=== PATIENT | male | born 1955 | race Caucasian/White ===

== ENCOUNTER → 2020-03-25 08:37 | Outpatient (BNVA) | payer MEDICAID, SELFPAY | PROVIDERS: Family Provider Internal Medicine; PCP Internal Medicine; Visit Provider Family Medicine | DX: N12 Tubulo-interstitial nephritis, not specified as acute or chronic (principal); N39.0 Urinary tract infection, site not specified; R39.9 Unspecified symptoms and signs involving the genitourinary system | CPT/HCPCS: 80053; 81003; 84145; 85025; 86140 ==

== ENCOUNTER 2020-10-02 12:14 | Emergency (ER) | payer OTHER, MEDICAID, SELFPAY ==
[2020-10-02 12:39] VITALS: BP 153/69; PULSE 86; RESP 24; TEMP 36.6; O2SAT 93; BMI 53.1
--- NOTE | 2020-10-02 12:52 | ECG_ITS ---
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 Measurements Intervals [place] Rate: 82 P: 59 MA: 185 QRS: 17 QRSD: 89 T: 62 QT: 377 QTc: 441 Interpretive Statements SINUS RHYTHM LOW QRS VOLTAGE IN PRECORDIAL LEADS [QRS DEFLECTION < 1.0 mV IN CHEST LEADS] Compared to ECG 10/25/2018 15:30:31 Low QRS voltage now present Sinus tachycardia no longer present Ventricular premature complex(es) no longer present Electronically Signed On 10-03-2020 9:31:03 CDT by Juan J Parisi M.D. [id number]
--- NOTE | 2020-10-02 12:52 | XR_ITS ---
WS: [id number] Portable AP upright chest, 10/02/2020 Clinical Data: dyspnea Comparison: PA chest, 12/07/2018. Findings: No nodules, masses or effusions are seen. The heart is normal. The pulmonary vascularity is not increased. No pneumothorax is seen. There is patchy opacity in the left lower lobe which could represent pneumonia and/or atelectasis. XR/XR chest 1V portable [id number] Impression: 1. Possible left lower lobe atelectasis and/or pneumonia. 2. Recommend repeat chest x-ray in one to 2 days.
[2020-10-02 13:25] LABS: SARS Covid-2 Antigen Negative (Negative)
[2020-10-02 13:36] VITALS: O2SAT 93
[2020-10-02 13:40] VITALS: PULSE 28; O2SAT 96
--- NOTE | 2020-10-02 14:12 | ED_ITS ---
HPI - COVID General: Chief Complaint: COVID symptoms Stated Complaint: DIFF BREATHING Time Seen by Provider: 10/02/20 12:48 Source: patient Mode of arrival: ambulatory Limitations: no limitations Triage information: No fever, cough or shortness of breath . No known COVID + exposure last 14 days History of Present Illness: HPI Narrative: 65-year-old male presents with shortness of breath progressive for the last few days. He does have an intermittent dry cough but not frequently. He does report symptoms for starting on Wednesday, 5 days ago. He really was not significant until Wednesday when he noticed that he actually had diminished taste and smell and had an episode of diarrhea. Patient reports that he had skipped his diuretic for a road trip and has noticed increased swelling and orthopnea. He does have chronic respiratory failure and COPD and uses inhalers and 24/7 oxygen with 2 L at all times. He recently got permission to increase to 3 L at night and with exertion. Patient reports he had 1 fever over the weekend that resolved with Tylenol and has not recurred. He does not report any asymmetric extremity swelling, redness, pain, or hemoptysis. He does have a history of cardiomegaly and morbid obesity with obesity hypoventilation syndrome COVID 19 common symptoms: positive fever(s), non-productive cough, dyspnea, fatigue and diarrhea (Resolved); negative chills, productive cough, body aches, headache(s), nausea or vomiting COVID 19 other sytmptoms: negative chest pain COVID Results: SARS-CoV-2 Antigen (Rapid) Negative (Negative) 10/02/20 12:58 10/02/20 Review of Systems General: Reports: 10 or more systems reviewed and unremarkable except in HPI and below and Other (No HEENT symptoms) Const: Reports: fever(s), fatigue and malaise; Denies: chills, body aches, change in appetite or diaphoresis Card: Reports: edema, swelling of feet/ankles, dyspnea on exertion and orthopnea; Denies: chest pain, palpitations or syncope Resp: Reports: dyspnea, non-productive cough and wheezing; Denies: productive cough, pain on inspiration, change in phlegm color or hemoptysis GI: Reports: diarrhea (Resolved); Denies: abdominal pain, nausea or vomiting : Denies: difficulty urinating or dysuria Musc: Reports: extremity swelling Skin/Breast: Denies: rash or changes in skin color Neuro: Denies: headache(s) or weakness in extremities Endo: Denies: polyuria or polydipsia PFSH ED PFSH: Medical History (Updated 10/02/20 @ 13:50 by Darrel La MD) COPD (chronic obstructive pulmonary disease) Coronary artery disease History of type 2 diabetes mellitus Hyperlipidemia Hypertension Surgical History (Updated 03/25/20 @ 17:21 by Moisés Landon MD) History of heart artery stent Physical Exam Const: COMMON NORMALS: no limitations and alert EXAM LIMITATIONS: no altered mental status GENERAL APPEARANCE: cooperative, well kempt and well developed NUTRITIONAL APPEARANCE: obese ORIENTATION/CONSCIOUSNESS: Yes awake; not confused HENMT: COMMON NORMALS: normocephalic, atraumatic, external ears normal and Normal external nose present HEAD & SCALP: normal to inspection, normocephalic and atraumatic FACE & SINUS: face symmetric NOSE: Normal external nose present EXTERNAL EAR: Yes external ears normal MOUTH: lip normal; no muffled voice Eye: COMMON NORMALS: EOMs intact bilaterally and conjunctivae normal GENERAL EYE: appearance normal, both eyes and all related structures CONJUNCTIVA: Yes conjunctivae normal Neck/C-Spine: COMMON NORMALS: no JVD GENERAL: Yes normal visual inspection and Yes trachea midline Resp: EFFORT & INSPECTION: Yes symmetric chest movement, Yes tachypneic, Yes respiratory distress (mild), Yes uses accessory muscles (mild), No tracheal deviation, No tripod positioning and No prolonged expiratory phase AUSCULTATION: abnormal I/E ratio and wheezes Cardio: COMMON NORMALS: no JVD, regular rate and regular rhythm RATE: regular rate RHYTHM: regular rhythm PERIPHERAL PULSES: radial pulses present GI: COMMON NORMALS: Soft to palpation INSPECTION: Yes normal to inspection PALPATION: Yes Soft to palpation, No Tenderness to palpation present (GI) and No Guarding due to palpation present (GI) Back/Pelvis: COMMON NORMALS: thoraco-lumbar ROM normal Extremity: COMMON NORMALS: full ROM GENERAL: Yes normal exam except as noted, No calf tenderness and Yes edema Neuro: COMMON NORMALS: moves all extremities, no focal motor deficits and no sensory deficits noted SENSORIUM/ORIENTATION: Yes alert Psych: COMMON NORMALS: mental status grossly normal, Normal thought process present, cooperative, normal affect and speech normal APPEARANCE: Yes well kempt SPEECH: Yes normal speech THOUGHT PROCESS: Normal thought process present Skin: COMMON NORMALS: no rashes or lesions noted, turgor normal and no jaundice GENERAL SKIN EXAM: no rashes or lesions noted and turgor normal Course Vital Signs: Vital signs: Vital Signs Temperature 97.8 F 10/02/20 12:39 Pulse Rate 28 L 10/02/20 13:40 Respiratory Rate 24 H 10/02/20 12:39 Blood Pressure 153/69 10/02/20 12:39 Pulse Oximetry 96 10/02/20 13:40 MDM - COVID MDM Narrative: Medical decision making narrative: Clinically the patient is presenting with fluid overload and congestive heart failure is the most obvious cause of his symptoms. However, the lost of taste and smell and the isolated fever are concerning for Covid. He was tested by the [facility] with a PCR send out test. Rapid test here was negative. Patient has home oxygen and is doing well with 2 L at rest and 3 with exertion. Patient has been skipping his diuretic and so I have instructed him to increase from 60 once a day to 60 twice daily for 3 days. I have added some potassium for replacement. We will put the patient empirically on doxycycline as his left lower lobe may have some atelectasis versus infiltrate. Patient also has wheezing and have encouraged him to use his inhalers and will add prednisone. Patient does not want to be admitted. We will do a trial of home therapy and have given return precautions. Lab Data: Labs: Lab Results 10/02/20 Range/Units 12:58 SARS-CoV-2 Ag (Rap id) Negative (Negative) EKG Data: EKG 1: Attestation: I personally reviewed and interpreted this EKG as follows: Interpretation: Sinus rhythm at a rate of 82 bpm, normal axis, normal intervals, no concerning ST segment elevations or depressions. No ectopy. COVID Results: SARS-CoV-2 Antigen (Rapid) Negative (Negative) 10/02/20 12:58 10/02/20 Discharge Plan Discharge Patient Disposition: Home Clinical Impression: Abnormal finding on chest xray Acute exacerbation of CHF (congestive heart failure) Qualifiers: Heart failure type: diastolic Qualified Code(s): I50.33 - Acute on chronic diastolic (congestive) heart failure COPD (chronic obstructive pulmonary disease) Qualifiers: COPD type: COPD with acute exacerbation Qualified Code(s): J44.1 - Chronic obstructive pulmonary disease with (acute) exacerbation Condition: Stable Prescriptions: New doxycycline monohydrate 100 mg capsule 100 mg PO BID 10 Days Qty: 20 RF: 0 prednisone 20 mg tablet 20 mg PO BID 5 Days Qty: 10 RF: 0 potassium chloride 20 mEq tablet extended release 20 meq PO DAILY 7 Days Qty: 7 RF: 0 Discontinued levofloxacin 750 mg tablet 750 mg PO DAILY 14 Days Qty: 14 RF: 0 No Action tamsulosin [Flomax] 0.4 mg capsule 0.4 mg PO DAILY 30 Days Qty: 30 RF: 0 Discharge Orders: Discharge ED (Routine); Ordered 10/02/20 Ordered By: Darrel La Referrals: Lovely Ivey MD [Primary Care Provider] - 4-7 days (Dyspnea related to CHF exacerbation with contributions from COPD, obesity hypoventilation, and r/o COVID.) Discharge Diet: Low Salt Discharge Activity: Increase activity as tolerated Patient Instructions: Heart Failure (ED), Pulmonary Edema (ED), Pneumonia (ED), Opioid Safety Activity Restrictions/Additional Instructions: 1. Take 60mg of lasix twice daily for three days then back to 60mg daily. 2. Take potassium 40meq daily for 7 days. 3. Restrict fluid intake to 60 oz daily for 5 days. 4. Take doxycycline antibiotic twice daily. 5. [facility] 6. Use CPAP and oxygen at night AND while resting (eg in your chair). Return to ER if you are getting worse. 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
== END 2020-10-02 14:50 | disposition home or self-care (01) ==
PROVIDERS: Emergency Provider Emergency Medicine; PCP Family Medicine
DX: J44.1 Chronic obstructive pulmonary disease with (acute) exacerbation (principal); I11.0 Hypertensive heart disease with heart failure; I50.33 Acute on chronic diastolic (congestive) heart failure; R93.89 Abnormal findings on diagnostic imaging of other specified body structures; I25.10 Atherosclerotic heart disease of native coronary artery without angina pectoris; E11.9 Type 2 diabetes mellitus without complications; E78.5 Hyperlipidemia, unspecified
CPT/HCPCS: 71045; 87426; 93005; 99283

== ENCOUNTER → 2021-02-12 10:34 | Outpatient (BNVA) | payer OTHER, SELFPAY | PROVIDERS: PCP Family Medicine; Visit Provider Internal Medicine Pulmonary Disease | DX: J44.1 Chronic obstructive pulmonary disease with (acute) exacerbation (principal) | CPT/HCPCS: 87635 ==

== ENCOUNTER 2021-02-19 13:51 | Outpatient (CLI) | payer OTHER, SELFPAY ==
--- NOTE | 2021-02-19 14:18 | PFTS_ITS ---
Date of Study:02/19/21 Date of Dictation: MECHANICS: Forced vital capacity (FVC) is reduced. Forced expiratory volume in one second (FEV1) is reduced. FEV1/FVC is reduced. FLOW VOLUME LOOP: Reduced flow at all lung volumes with significant scooping. LUNG VOLUMES: Total lung capacity (TLC) is normal. Residual volume (RV) is increased. DIFFUSING CAPACITY FOR CARBON MONOXIDE: Mild reduced. INTERPRETATION: The postbronchodilator spirometry is consistent with severe obstruction. There is no significant postbronchodilator response. Lung volumes are consistent with air trapping. Gas exchange (DLCO) is mildly reduced. MTDD
== END 2021-02-19 13:52 | disposition home or self-care (01) ==
LOC: RT 13:54
PROVIDERS: PCP Family Medicine; Visit Provider Internal Medicine Pulmonary Disease
DX: J44.1 Chronic obstructive pulmonary disease with (acute) exacerbation (principal); I10 Essential (primary) hypertension; I25.10 Atherosclerotic heart disease of native coronary artery without angina pectoris
CPT/HCPCS: 80048; 83880; 94060; 94726; 94729

== ENCOUNTER 2021-05-14 09:51 | Outpatient (CLI) | payer OTHER, SELFPAY ==
--- NOTE | 2021-05-14 10:02 | USCV_ITS ---
Artie Quiles Age: 66 Gender: M : 1955 Exam Date: 05/14/2021 10:10 Ordering Phys: Juan J Parisi M.D ([email or web address]) Technologist: DAVID Exam Location: [facility] [place] Indication: SHORTNESS OF BREATH BP: 118 / 60 HR: 77 Rhythm: Sinus Technical Quality: Technically difficult study MEASUREMENTS (Male / Female) Normal Values 2D ECHO LV Diastolic Diameter PLAX 5.1 cm 4.2 - 5.9 / 3.9 - 5.3 cm LV Systolic Diameter PLAX 4.0 cm IVS Diastolic Thickness 1.3 cm 0.6 - 1.0 / 0.6 - 0.9 cm IVS Systolic Thickness 1.5 cm LVPW Diastolic Thickness 1.3 cm 0.6 - 1.0 / 0.6 - 0.9 cm LVPW Systolic Thickness 1.3 cm RV Chamber Size 3.3 cm LVOT Diameter 2.0 cm LV Ejection Fraction 2D Teich 44.3 % LV Ejection Fraction MOD 2C 48.5 % LV Ejection Fraction 2C AL 51.7 % LA Diameter 3.9 cm LA Width 4.1 cm LA Height 5.5 cm RA Width 4.3 cm RA Height 5.2 cm Aorta at Sinotubular Diameter 2.6 cm M-MODE Aortic Annulus Diameter 3.3 cm LA Ao Ratio MM 1.3 DOPPLER AV Peak Velocity 146.0 cm/s LVOT Peak Velocity 94.0 cm/s AV Area Cont Eq vti 1.9 cm squared AV Area Cont Eq pk 2.1 cm squared MV Area PHT 3.6 cm squared Mitral E to A Ratio 1.0 MV E' Velocity 62.5 cm/s Mitral E to MV E' Ratio 14.4 Mitral E to LV E' Lateral Ratio 13.1 Mitral E to LV E' Septal Ratio 16.3 TR Peak Velocity 225.0 cm/s TR Peak Gradient 20.3 mmHg PV Peak Velocity 94.0 cm/s RV Acceleration Time 0.2 s RV Ejection Time 0.3 s RV AcT/ET 0.5 FINDINGS Left Ventricle Technically limited quality echocardiogram because of poor ultrasonic windows. Normal left ventricular size. LV systolic function is grossly normal. Regional wall motion normalities cannot be assessed because of poor ultrasonic windows. Right Ventricle The right ventricle is normal in size and function. Right Atrium Not well-visualized Left Atrium The left atrium is normal in size. Mitral Valve Grossly normal without significant stenosis or prolapse. There is mild mitral regurgitation. Aortic Valve Not well-visualized without stenosis. There is no aortic regurgitation. Tricuspid Valve Not well-visualized without significant stenosis or regurgitation. Insufficient TR jet to calculate RVSP Pulmonic Valve Not well-visualized Pericardium Normal pericardium without effusion. Aorta Normal ascending aorta dimension. CONCLUSIONS Technically limited quality echocardiogram because of poor ultrasonic windows. LV systolic function is grossly normal. Mild mitral regurgitation. No comparison studies are available Juan J Parisi MD (Electronically Signed) Final Date: 25 May 2021 16:50 S
== END 2021-05-14 09:52 | disposition home or self-care (01) ==
PROVIDERS: PCP Family Medicine; Visit Provider Internal Medicine
DX: R06.02 Shortness of breath (principal); I34.0 Nonrheumatic mitral (valve) insufficiency
CPT/HCPCS: 93306

== ENCOUNTER → 2021-10-14 15:21 | Outpatient (BNVA) | payer OTHER, SELFPAY | PROVIDERS: PCP Family Medicine; Visit Provider Internal Medicine | DX: I48.91 Unspecified atrial fibrillation (principal); I11.0 Hypertensive heart disease with heart failure; I50.9 Heart failure, unspecified; J44.1 Chronic obstructive pulmonary disease with (acute) exacerbation; F17.210 Nicotine dependence, cigarettes, uncomplicated; Z95.5 Presence of coronary angioplasty implant and graft; E78.5 Hyperlipidemia, unspecified; E11.8 Type 2 diabetes mellitus with unspecified complications; Z79.84 Long term (current) use of oral hypoglycemic drugs; I25.10 Atherosclerotic heart disease of native coronary artery without angina pectoris | CPT/HCPCS: 99214 ==

== ENCOUNTER 2021-10-23 11:03 | Outpatient (CLI) | payer OTHER, SELFPAY ==
--- NOTE | 2021-10-23 11:15 | CT_ITS ---
WS: [id number] LDCT LUNG CANCER SCREENING HISTORY: Z87.891 - Personal history of nicotine dependence TECHNIQUE: Axial imaging performed from the apices to 1 cm below the costophrenic angles. Coronal and sagittal reformats are submitted with axial MIP series. All CT scans at [facility] use at least one of these dose optimization techniques: automated exposure control; mA and/or kV adjustment per patient size (includes targeted exams where dose is matched to clinical indication); or iterativ e reconstruction. DLP: 79.48 mGy.cm DIvol: Mean CTDIvol: 1.60 (mGy) COMPARISON: 10/15/2020 Diagnostic quality: Quality is limited by motion artifact and body habitus. Lung Nodules: Atelectasis at the lung bases. Slightly greater atelectasis which is curvilinear at the RIGHT lung base. Small nodules would be difficult to visualize with this amount of motion and degrad ation of quality due to body habitus. Lungs: Hyperexpanded lungs. Heart: Normal size heart. No pericardial effusion. Other findings: Mildly enlarged lobulated substernal LEFT thyroid. Similar to the prior CT from 2020. RIGHT paratracheal lymph node measures 14 mm. No change. There are a few additional smaller lymph no tavo. Healing rib fractures with callus formation in the posterior inferior LEFT thorax. CT/CT lung screening [id number] IMPRESSION: LUNG-RADS: 2-Benign Appearance or Behavior FOLLOW UP: 12 Month: Continue annual screening with LDCT OTHER FINDINGS (S MODIFIER): None. Quality of examination is significantly degraded by body habitus and breathing motion artifact.
== END 2021-10-23 11:04 | disposition home or self-care (01) ==
LOC: RAD 11:05
PROVIDERS: PCP Family Medicine; Visit Provider Internal Medicine Pulmonary Disease
DX: Z12.2 Encounter for screening for malignant neoplasm of respiratory organs (principal); Z87.891 Personal history of nicotine dependence
CPT/HCPCS: 71271

== ENCOUNTER → 2022-04-28 13:25 | Outpatient (BNVA) | payer OTHER, SELFPAY | PROVIDERS: PCP Family Medicine; Visit Provider Internal Medicine | DX: I48.91 Unspecified atrial fibrillation (principal); Z79.01 Long term (current) use of anticoagulants; I11.0 Hypertensive heart disease with heart failure; I50.9 Heart failure, unspecified; J44.1 Chronic obstructive pulmonary disease with (acute) exacerbation; E78.5 Hyperlipidemia, unspecified; E11.9 Type 2 diabetes mellitus without complications; Z79.84 Long term (current) use of oral hypoglycemic drugs; I25.10 Atherosclerotic heart disease of native coronary artery without angina pectoris; Z95.5 Presence of coronary angioplasty implant and graft; Z87.891 Personal history of nicotine dependence | CPT/HCPCS: 99214 ==

== ENCOUNTER 2022-08-20 15:53 | Inpatient (IN) | payer OTHER, SELFPAY ==
[2022-08-20] VITALS (21 sets, daily range): BP systolic 88–144; BP diastolic 51–92; PULSE 73–119; RESP 18–33; TEMP 36.8–36.9; O2SAT 84–99; BMI 51.6; BMI 50.6
--- NOTE | 2022-08-20 16:01 | ED_ITS ---
HPI - Chest Pain General: Chief Complaint: Chest Pain Stated Complaint: CHEST PAIN Time Seen by Provider: 08/20/22 16:00 History of Present Illness: Mr. Quiles is a 67-year-old gentleman with complex past medical history including atrial fibrillation, CHF, COPD with chronic hypoxic respiratory failure, history of CAD with history of PCI, hypertension, hyperlipidemia, diabetes presenting to the emergency department due to chest pain. He reports onset of symptoms perhaps 1 hour ago at rest. He endorses substernal pain with some radiation to the epigastric region. He took some Gas- X and this did not help. He did take nitroglycerin which provided some relief. He reports he does not frequently have episodes of chest pain. Intensity symptoms is moderate. Course has mildly improved. No other specific changes in health, exacerbating, or alleviating factors identified. Onset (ago): hour(s) Timing of current episode: constant Prior episodes: No Onset: during rest Pain location: substernal Pain radiation: abdomen Severity: moderate Relieving factors: nitroglycerin Exacerbating factors: nothing Associated symptoms: Reports no associated symptoms Review of Systems General: Reports: 10 or more systems reviewed and unremarkable except in HPI and below PFSH ED PFSH: Medical History Atrial fibrillation CHF (congestive heart failure) COPD (chronic obstructive pulmonary disease) 2L Coronary artery disease History of type 2 diabetes mellitus Hyperlipidemia Hypertension Legally blind NATHALY (obstructive sleep apnea) Nightly CPAP Septic shock Surgical History History of heart artery stent Social History Smoking and tobacco status: former smoker Quit status (tobacco): has quit using tobacco Year quit tobacco: August 2020 [id number] Second hand smoke exposure: Yes Smoking risk assessment/counseling performed?: Yes Alcohol intake: never Caregiver/support person: Yes Lives independently: Yes Household members: significant other Marital status: service: Yes Current occupational status: retired and disabled Pets and animals: Yes Current gender identity: Male Physical Exam Const: COMMON NORMALS: alert GENERAL APPEARANCE: cooperative and well developed HENMT: COMMON NORMALS: normocephalic and atraumatic HEAD & SCALP: normocephalic and atraumatic Eye: COMMON NORMALS: conjunctivae normal CONJUNCTIVA: Yes conjunctivae normal SCLERA: sclerae normal Neck/C-Spine: COMMON NORMALS: supple GENERAL: Yes trachea midline Resp: COMMON NORMALS: clear to auscultation bilaterally EFFORT & INSPECTION: Yes able to speak in complete sentences AUSCULTATION: clear to auscultation bilaterally Cardio: COMMON NORMALS: regular rate and regular rhythm RATE: regular rate RHYTHM: regular rhythm GI: COMMON NORMALS: Soft to palpation PALPATION: Yes Soft to palpation and No Tenderness to palpation present (GI) Extremity: GENERAL: Yes normal exam except as noted and No edema Neuro: COMMON NORMALS: moves all extremities SENSORIUM/ORIENTATION: Yes alert and No Orientation impaired Psych: COMMON NORMALS: mental status grossly normal and Normal thought process present THOUGHT PROCESS: Normal thought process present Course Vital Signs: Vital signs: Vital Signs Temperature 98.2 F 08/28/22 15:44 Pulse Rate 70 08/28/22 15:44 Respiratory Rate 19 H 08/28/22 15:44 Blood Pressure 131/91 08/28/22 15:44 Pulse Oximetry 97 08/28/22 15:44 Oxygen Delivery Me thod 08/28/22 08:30 Oxygen Flow Rate 4 08/28/22 08:30 Fraction of Inspir ed Oxygen 40 08/28/22 02:20 MDM - Chest Pain Medical Decision Making 67-year-old gentleman with cardiac history presenting to the emergency room for chest pain. Exam as above, patient does not have reproducible symptoms with palpation on physical exam. He is nontoxic in appearance. EKG notable for atrial fibrillation with controlled ventricular response, nonspecific ST segment abnormalities, no STEMI. Labs are notable for mild leukocytosis, anemia is present. ABG with mild hypercapnia toxic respiratory failure. Metabolic panel with hyperkalemia and elevated creatinine above baseline. Initial lactic acid is elevated. Negative range 2-hour delta troponin. BNP only minimally elevated. Urinalysis pending. Chest x-ray demonstrates cardiomegaly with basilar opacities, no pneumothorax. Given severity of symptoms and overall clinical exam and laboratory abnormalities advanced imaging is appropriate. CT demonstrates bilateral dependent changes, mild cardiomegaly with trace pericardial effusion. There is perhaps mild enteritis. Incidental findings noted. During ED course patient treated with GI cocktail, morphine, fentanyl, calcium, IV fluids, antibiotics for community-acquired pneumonia. Most likely etiology patient symptoms is multifactorial with pneumonia, heart failure, sepsis. The results of ED evaluation were discussed with the patient including plan for admission due to requirement for level of care not available if discharged to prevent significant worsening/deterioration. Patient agreeable with plan. Discussed with hospitalist service who was agreeable to admit patient. Medical Records I reviewed the patient's medical records. Lab Data I reviewed the patient's lab results. 08/28/22 08:41 08/28/22 01:14 Radiology Impressions Chest/Abdomen/Pelvis CT 08/20/22 18:13 IMPRESSION: 1. Bilateral dependent atelectasis versus infiltrate. 2. Several chronic posterior left rib fractures. 3. Scattered enlarged mediastinal lymph nodes measuring up to 15 mm, similar to prior exam, nonspecific. 4. Cardiomegaly. 5. Trace pericardial effusion. 6. Coronary artery atherosclerotic calcifications. IMPRESSION: 1. Mildly prominent fluid in the small bowel without dilation may reflect an enteritis. 2. Several hepatic cysts. 3. Left kidney punctate nonobstructing renal calyceal stone. 4. Perinephric edema likely reflecting renal insufficiency, please correlate for possible pyelonephritis. 5. Umbilical hernia containing omentum without bowel. 6. Left kidney exophytic 14 mm probable cyst, appears somewhat hyperdense, further evaluation with nonemergent renal ultrasound advised to evaluate for suspected cystic versus potentially solid nature. Venous Duplex 08/21/22 14:54 IMPRESSION: No evidence of deep vein thrombosis. Chest X-Ray 08/27/22 15:28 IMPRESSION: Interval placement of right central line, no pneumothorax or other acute abnormality. Laboratory Results WBC 19.3 10^3/uL (4.0-10.0) H 08/20/22 16:33 RBC 4.34 10^6/uL (4.1-5.3) 08/20/22 16:33 Hgb 10.2 g/dL (11.7-16.6) L 08/20/22 16:33 Hct 35.4 % (42.0-52.0) L 08/20/22 16:33 MCV 81.6 fl (80-94) 08/20/22 16:33 MCH 23.5 pg (28.0-34.0) L 08/20/22 16:33 MCHC 28.8 g/dL (30.0-36.0) L 08/20/22 16:33 RDW 17.7 % (12.1-15.1) H 08/20/22 16:33 Plt Count 497 10^3/cmm (130-400) H 08/20/22 16:33 MPV 11.2 fL (7.4-10.4) H 08/20/22 16:33 Neut % (Auto) 78.6 % 08/20/22 16:33 Lymph % (Auto) 11.3 % 08/20/22 16:33 [place] % (Auto) 9.2 % 08/20/22 16:33 Eos % (Auto) 0.3 % 08/20/22 16:33 Baso % (Auto) 0.2 % 08/20/22 16:33 Neut # (Auto) 15.17 10^3/uL (1.8-7.7) H 08/20/22 16:33 Lymph # (Auto) 2.2 10^3/uL (0.8-4.8) 08/20/22 16:33 [place] # (Auto) 1.8 10^3/uL (0.2-0.9) H 08/20/22 16:33 Eos # (Auto) 0.1 10^3/uL (0.0-0.8) 08/20/22 16:33 Baso # (Auto) 0.0 10^3/uL (0.0-0.1) 08/20/22 16:33 Nucleated RBC % (auto) 0 % 08/20/22 16:33 Nucleated RBCs # 0.0 /100WBC 08/20/22 16:33 Sodium 139 mmol/L (136-145) 08/20/22 16:33 Potassium 6.0 mmol/L (3.5-5.1) H 08/20/22 16:33 Chloride 93 mmol/L (98-107) L 08/20/22 16:33 Carbon Dioxide 29 mmol/L (22-29) 08/20/22 16:33 Anion Gap 23.0 (5-19) H 08/20/22 16:33 BUN 64 mg/dL (8-23) H 08/20/22 16:33 Creatinine 2.3 mg/dL (0.7-1.2) H 08/20/22 16:33 GFR Calculation 28.4 mL/min (90-130) L 08/20/22 16:33 Glucose 120 mg/dL (65-115) H 08/20/22 16:33 Calculated Osmolality 308 mOsm/kg (285-295) H 08/20/22 16:33 Lactate 2.9 mmol/L (0.5-2.2) H 08/20/22 18:25 Calcium 8.1 mg/dL (8.5-10.5) L 08/20/22 16:33 Total Bilirubin 0.2 mg/dL (0.15-1.2) 08/20/22 16:33 AST 19 U/L (0-40) 08/20/22 16:33 ALT 12 U/L (0-41) 08/20/22 16:33 Alkaline Phosphatase 142 U/L (40-130) H 08/20/22 16:33 Troponin T Baseline 92 ng/L (0-15) H 08/20/22 16:33 Troponin T 120 Minute 84.64 ng/L (0-15) H 08/20/22 18:25 Delta Troponin T -7.36 ABS# (0-10) L 08/20/22 18:25 NT-Pro-B Natriuret Pep 343 pg/mL (0-125) H 08/20/22 16:33 Total Protein 7.2 g/dL (6.6-8.7) 08/20/22 16:33 Albumin 3.8 g/dL (3.5-5.2) 08/20/22 16:33 Globulin 3.4 g/dL (1.3-4.6) 08/20/22 16:33 Lipase 25 U/L (13-60) 08/20/22 16:33 Critical Care Time Critical Care Time: Critical Care Time: Yes Total Critical Care Time: 35 Attestation: Due to a high probability of clinically significant, possibly life threatening deterioration, the patient required my highest level of attention and preparedness to intervene emergently and I personally spent this critical care t lee directly and personally managing the patient. This critical care time included obtaining a history; examining the patient; pulse oximetry; ordering and review of laboratory and imaging studies; arranging urgent treatment with development of a management plan; evaluation of patient's response to treatment; frequent reassessment; and, discussions with other providers as applicable. It was exclusive of separately billable procedures. Primary system involved is infectious disease and cardiopulmonary Discharge Plan Discharge Patient Disposition: Admitted As Inpatient Admit Provider: Conor Madera Clinical Impression: Chest pain, CHF (congestive heart failure), Atrial fibrillation, Pneumonia, EDWIN (acute kidney injury), Sepsis, Hyperkalemia Condition: Stable Discharge Diet: Cardiac Discharge Activity: Increase activity as tolerated Coding Level of Care Code ED Superintendent Nonselling for Lauren Gonzalez
--- NOTE | 2022-08-20 16:13 | ECG_ITS ---
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 Measurements Intervals [place] Rate: 82 P: 0 PA: 0 QRS: -14 QRSD: 82 T: 78 QT: 362 QTc: 425 Interpretive Statements ATRIAL FLUTTER/TACHYCARDIA LOW QRS VOLTAGE [QRS DEFLECTION < 0.5/1.0 mV IN LIMB/CHEST LEADS] Compared to ECG 10/02/2020 13:32:59 Sinus rhythm no longer present Electronically Signed On 08-20-2022 22:50:28 CDT by Gadiel Kinsey M.D. [email or web address] [id number]
--- NOTE | 2022-08-20 16:13 | XRR_ITS ---
PROCEDURE INFORMATION: Exam: XR Chest Exam date and time: 08/20/2022 5:07 PM Age: 67 years old Clinical indication: Shortness of breath and other: Copd. Stomach pains, jello legs; Additional info: Cp TECHNIQUE: Imaging protocol: Radiologic exam of the chest. Views: 1 view. COMPARISON: CT chest con [id number] 06/05/2022 5:10 PM FINDINGS: Limitations: Assessment is limited due to body habitus. Lungs: Lung volumes are decreased. There is patchy ground-glass opacities the lung bases with indistinct nodular consolidative opacities at the left lung base concerning for pneumonia. Pleural spaces: Unremarkable. No pleural effusion. No pneumothorax. Heart/Mediastinum: Heart is enlarged, unchanged. Bones/joints: Unremarkable for age. XR/XR chest 1V portable [id number] IMPRESSION: Cardiomegaly with bibasilar opacities more pronounced at the left lung base concerning for pneumonia.
[2022-08-20] MEDS: morphine 4 mg/mL SDV 1 mL IVP (16:30)
[2022-08-20 16:56] LABS: Basophils % 0.2 %; Eosinophils # 0.1 10^3/uL (0.0-0.8); Eosinophils % 0.3 %; Hematocrit 35.4 % (42.0-52.0); Hemoglobin 10.2 g/dL (11.7-16.6); Lymphocytes # 2.2 10^3/uL (0.8-4.8); Lymphocytes % 11.3 %; Mean Corpuscular HGB Conc 28.8 g/dL (30.0-36.0); Mean Corpuscular Hemoglobin 23.5 pg (28.0-34.0); Mean Corpuscular Volume 81.6 fl (80-94); Mean Platelet Volume 11.2 fL (7.4-10.4); Monocytes # 1.8 10^3/uL (0.2-0.9); Monocytes % 9.2 %; Neutrophils # 15.17 10^3/uL (1.8-7.7); Neutrophils % 78.6 %; Nucleated Red Blood Cells % 0 %; Platelet Count 497 10^3/cmm (130-400); Red Blood Count 4.34 10^6/uL (4.1-5.3); Red Cell Distribution Width 17.7 % (12.1-15.1); White Blood Count 19.3 10^3/uL (4.0-10.0)
[2022-08-20 17:15] LABS: Albumin Level 3.8 g/dL (3.5-5.2); Chloride 93 mmol/L (98-107); Sodium 139 mmol/L (136-145)
[2022-08-20 17:19] LABS: Troponin(5th) Baseline 92 ng/L (0-15)
[2022-08-20 18:09] LABS: Alanine Aminotransferase 12 U/L (0-41); Aspartate Amino Transferase 19 U/L (0-40); Blood Urea Nitrogen 64 mg/dL (8-23); Calcium 8.1 mg/dL (8.5-10.5); Carbon Dioxide 29 mmol/L (22-29); Globulin 3.4 g/dL (1.3-4.6); Glomerular Filtration Rate 28.4 mL/min (90-130); Glucose 120 mg/dL (65-115); Lipase 25 U/L (13-60); NT Pro B Type Natriuretic Pept 343 pg/mL (0-125); Osmolality Calculated 308 mOsm/kg (285-295); Total Bilirubin 0.2 mg/dL (0.15-1.2); Total Protein 7.2 g/dL (6.6-8.7)
--- NOTE | 2022-08-20 18:12 | ECG_ITS ---
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 Measurements Intervals [place] Rate: 83 P: 0 CA: 0 QRS: 0 QRSD: 93 T: 55 QT: 368 QTc: 434 Interpretive Statements ATRIAL FIBRILLATION LOW QRS VOLTAGE [QRS DEFLECTION < 0.5/1.0 mV IN LIMB/CHEST LEADS] Compared to ECG 08/20/2022 16:03:40 Atrial flutter no longer present Electronically Signed On 08-21-2022 23:09:36 CDT by Gadiel Kinsey M.D. [id number]
--- NOTE | 2022-08-20 18:13 | CTR_ITS ---
PROCEDURE INFORMATION: Exam: CT Chest Without Contrast; Diagnostic Exam date and time: 08/20/2022 6:50 PM Age: 67 years old Clinical indication: Other: Brandyn; Shortness of breath; Additional info: SOB, cp, brandyn TECHNIQUE: Imaging protocol: Diagnostic computed tomography of the chest without contrast. Radiation optimization: All CT scans at this facility use at least one of these dose optimization techniques: automated exposure control; mA and/or kV adjustment per patient size (includes targeted exams where dose is matched to clinical indication); or iterative reconstruction. REPORTING DATA: Count of CT and Cardiac NM exams in prior 12 months: This patient has received 2 known CTs and 0 known cardiac nuclear medicine studies in the 12 months prior to the current study. COMPARISON: CT chest wo con [id number] 06/05/2022 5:10 PM RADIATION DOSE METRICS: Total DLP (mGy-cm): 0 FINDINGS: Lungs: Bilateral dependent atelectasis versus infiltrate. Pleural spaces: Unremarkable. No pneumothorax. No pleural effusion. Heart: Cardiomegaly. Trace pericardial effusion. Coronary arteries: Coronary artery atherosclerotic calcifications. Lymph nodes: Scattered enlarged mediastinal lymph nodes measuring up to 15 mm, similar to prior exam, nonspecific. Vasculature: Unremarkable. No aortic aneurysm. Bones/joints: Several chronic posterior left rib fractures. Soft tissues: Unremarkable. PROCEDURE INFORMATION: Exam: CT Abdomen And Pelvis Without Contrast Exam date and time: 08/20/2022 6:50 PM Age: 67 years old Clinical indication: Other: Brandyn; Shortness of breath; Additional info: SOB, cp, brandyn TECHNIQUE: Imaging protocol: Computed tomography of the abdomen and pelvis without contrast. Radiation optimization: All CT scans at this facility use at least one of these dose optimization techniques: automated exposure control; mA and/or kV adjustment per patient size (includes targeted exams where dose is matched to clinical indication); or iterative reconstruction. REPORTING DATA: Count of CT and Cardiac NM exams in prior 12 months: This patient has received 2 known CTs and 0 known cardiac nuclear medicine studies in the 12 months prior to the current study. COMPARISON: CT kidney stone [id number] 12/07/2018 3:00 PM RADIATION DOSE METRICS: Total DLP (mGy-cm): 1507.88 FINDINGS: Liver: Several hepatic cysts. Gallbladder and bile ducts: Normal. No calcified stones. No ductal dilation. Pancreas: Normal. No ductal dilation. Spleen: Normal. No splenomegaly. Adrenal glands: Normal. No mass. Kidneys and ureters: Left kidney punctate nonobstructing renal calyceal stone. Perinephric edema likely reflecting renal insufficiency, please correlate for possible pyelonephritis. Left kidney exophytic 14 mm probable cyst, appears somewhat hyperdense, further evaluation with nonemergent renal ultrasound advised to evaluate for suspected cystic versus potentially solid nature. Stomach and bowel: Mildly prominent fluid in the small bowel without dilation may reflect an enteritis. Appendix: No evidence of appendicitis. Intraperitoneal space: Unremarkable. No free air. No significant fluid collection. Vasculature: Unremarkable. No abdominal aortic aneurysm. Lymph nodes: Unremarkable. No enlarged lymph nodes. Urinary bladder: Unremarkable as visualized. Reproductive: Unremarkable as visualized. Bones/joints: Unremarkable. No acute fracture. Soft tissues: Umbilical hernia containing omentum without bowel. CT/[place] [id number] IMPRESSION: 1. Bilateral dependent atelectasis versus infiltrate. 2. Several chronic posterior left rib fractures. 3. Scattered enlarged mediastinal lymph nodes measuring up to 15 mm, similar to prior exam, nonspecific. 4. Cardiomegaly. 5. Trace pericardial effusion. 6. Coronary artery atherosclerotic calcifications. IMPRESSION: 1. Mildly prominent fluid in the small bowel without dilation may reflect an enteritis. 2. Several hepatic cysts. 3. Left kidney punctate nonobstructing renal calyceal stone. 4. Perinephric edema likely reflecting renal insufficiency, please correlate for possible pyelonephritis. 5. Umbilical hernia containing omentum without bowel. 6. Left kidney exophytic 14 mm probable cyst, appears somewhat hyperdense, further evaluation with nonemergent renal ultrasound advised to evaluate for suspected cystic versus potentially solid nature.
[2022-08-20] MEDS: sodium chloride 0.9% 500 ML 999 ML IV ×2 (18:15→21:18)
[2022-08-20] MEDS: cefTRIAXone 1,000 MG in sodium chloride 0.9% (plus) 50 ML 100 MG IV (18:22)
[2022-08-20] MEDS: doxycycline 100 MG in sodium chloride 0.9% (plus) 100 ML IV (18:22)
[2022-08-20 18:29] LABS: Alkaline Phosphatase 142 U/L (40-130)
--- NOTE | 2022-08-20 18:43 | PC.NURSE ---
PT REPOSITIONED BY NURSE AND PILLOWS PLACED UNDER BOTTOM.
--- NOTE | 2022-08-20 18:44 | PC.NURSE ---
PATIENT STATES HIS BOTTOM IS HURTING - HE IS MOVED TO A WHEELCHAIR SO THAT HE IS MORE COMFORTABLE AND CAN STILL BE MONITORED. REMAINS AT BEDSIDE.
[2022-08-20 19:10] LABS: Lactate (Lactic Acid level) 2.9 mmol/L (0.5-2.2)
[2022-08-20 19:11] LABS: Troponin 5 2HR 84.64 ng/L (0-15)
[2022-08-20 19:15] LABS: Troponin 5 2HR Delta -7.36 ABS# (0-10)
[2022-08-20 20:00] LABS: ABG PCO2 54.3 mmHg (35-45); ABG PH Result 7.33 (7.35-7.45); Alveolar-Arterial Oxygen Gradi 8.5 mmHg (5-10); Arterial Blood Gas Hematocrit 31.6 % (42-52); Base Excess ABG 2.1 mmol/L (-2.0-2.0); Blood Gas Sample Site Brachial, right; Blood Gas Sample Type Arterial; Carboxyhemoglobin 2.5 %THgb (0.4-20.1); HCO3 ABG 28.8 mmol/L (22-26); HGB O2 Sat 89.4 % (95-100); Ionized Calcium Level - ABG 1.1 mmol/L (1.1-1.4); Methemoglobin 0.7 % (0.4-1.5); Oxygen Device NC; Oxygen Saturation ABG 92.3; PO2 ABG 66.9 mmHg (80.0-100.0); Potassium Level - ABG 6.1 mmol/L (3.5-5.0); Total Hemoglobin 10.3 g/dL (14-18)
--- NOTE | 2022-08-20 20:22 | P.HP_ITS ---
Providers/Chief Complaint Admitting Physician: Conor Madera Primary Care Provider: Lovely Ivey MD Chief Complaint: CHEST PAIN History of Present Illness Pleasant 67-year-old gentleman, legally blind, with history of COPD, CHF, normally on 2 L of oxygen, NATHALY, nightly on CPAP, history of CAD, takes a daily aspirin, atrial fibrillation on anticoagulation, morbid obesity, HTN, HLD presented due to chest pain central, with improvement with nitroglycerin, but then pain began radiating to his neck and shoulders. Received aspirin. He additionally has been having discomfort in his epigastrium. In ER he is noted tachypneic up to 24, saturation fluctuating, but dipped down to 89% on 2 L that he is usually on. Heart rates in the 70s-80s. Blood pressure soft 95/52. As low as 88/51. While in ER went into A-fib with RVR low 100s. Lactic acid 2.9. Noted leukocytosis 19.3, noted hemoglobin 10.2. Normocytic. ABG 7.33/44.3/66.9. Baseline troponin 92, 2-hour troponin 84.64. NT proBNP 343. Lipase 25. Sodium 139, potassium 6, chloride 93, anion gap 23, bicarb 29. BUN 64. Creatinine 2.3. Glucose 120. Chest x-ray with cardiomegaly with bibasilar opacities more pronounced at left lung base concerning for pneumonia. CT chest abdomen pelvis without contrast shows bilateral dependent atelectasis versus infiltrate. Several chronic posterior left rib fractures. Scattered enlarged mediastinal lymph nodes measuring up to 15 mm similar to prior exam, nonspecific. Cardiomegaly. Trace pericardial effusion. Coronary artery atherosclerotic calcifications. Mildly prominent fluid and small bowel without dilation may reflect enteritis. Several hepatic cyst. Left kidney punctate nonobstructing renal calyceal stone. Perinephric edema likely reflecting renal insufficiency, correlate for pyelonephritis. Umbilical hernia containing omentum without bowel. Left kidney exophytic 14 mm probable cyst, appears somewhat hyperdense. Further evaluation with nonemergent ultrasound advised. Patient additionally tells me that he is supposed to be having an appointment for endoscopic evaluation by referral from his primary provider. He tells me that he has been taking ibuprofen at home. As he is blind, his usually arranges and gives him his medications. Review of Systems Const: Denies: fever(s) ENMT: Denies: throat pain or ear or mastoid pain Card: Reports: chest pain; Denies: edema, pre-syncope or dyspnea on exertion Resp: Reports: productive cough; Denies: change in phlegm color or hemoptysis GI: Reports: abdominal pain (Epigastric); Denies: nausea or vomiting : Denies: flank pain, difficulty urinating, urinary frequency or hematuria Musc: Reports: back pain; Denies: joint swelling or joint redness Skin/Breast: Denies: rash or new lesions Neuro: Denies: headache(s), numbness in extremities, weakness in extremities, dizziness, confusion or seizure-like activity Medications/Allergies Home Medications Medication Instructions Recorded Confirmed Last Taken Type apixaban 5 mg tablet 5 mg PO BID 11/27/20 06/17/22 Unknown History aspirin 81 mg tablet,delayed 81 mg PO DAILY 11/27/20 06/17/22 Unknown History release (Adult Low Dose Aspirin) atorvastatin 80 mg tablet 40 mg PO DAILY 11/27/20 06/17/22 Unknown History cetirizine 10 mg tablet (Zyrtec) 10 mg PO DAILY PRN 11/27/20 06/17/22 Unknown History cholecalciferol (vitamin D3) 50 50 mcg PO DAILY 11/27/20 06/17/22 Unknown History mcg (2,000 unit) capsule docusate sodium 100 mg capsule 100 mg PO BID 11/27/20 06/17/22 Unknown History furosemide 20 mg tablet 80 mg PO BID 11/27/20 06/17/22 Unknown History hydrocodone 10 mg-acetaminophen 1 tab PO Q6H PRN 11/27/20 06/17/22 Unknown History 325 mg tablet lisinopril 20 mg tablet 10 mg PO DAILY 11/27/20 06/17/22 Unknown History metformin 1,000 mg tablet 1,000 mg PO BID 11/27/20 06/17/22 Unknown History nitroglycerin 0.4 mg sublingual 0.4 mg sublingual Q5M PRN 11/27/20 06/17/22 Unknown History tablet omeprazole 20 mg capsule,delayed 20 mg PO DAILY 11/27/20 06/17/22 Unknown History release polyethylene glycol 3350 17 17 g PO DAILY 11/27/20 06/17/22 Unknown History gram/dose oral powder pregabalin 150 mg capsule 150 mg PO BID 11/27/20 06/17/22 Unknown History inhalational spacing device (Allan #1 ea 05/20/21 06/17/22 Unknown Rx Aerosol [place] Enhancer spacer) multivitamin 1 tab PO DAILY 08/11/21 06/17/22 Unknown History roflumilast 250 mcg tablet 250 mcg PO DAILY #30 tabs 01/14/22 06/17/22 Unknown Rx miscellaneous medical supply See Rx Instructions miscellaneous 01/15/22 06/17/22 Unknown Rx .COMPLEX #1 ea metoprolol tartrate 50 mg tablet 50 mg PO BID #240 tabs 04/28/22 06/17/22 Unknown Rx guaifenesin 600 mg tablet, 600 mg PO Q12H PRN congestion #60 05/26/22 06/17/22 Unknown Rx extended release 12 hr (Mucinex) tabs albuterol sulfate 90 mcg/actuation 1 inh inhalation QID PRN shortness 06/17/22 06/17/22 Unknown Rx aerosol inhaler (Ventolin HFA) of breath or wheezing #8.5 grams budesonide-formoterol HFA 160 2 puff inhalation BID #10.2 grams 06/17/22 06/17/22 Unknown Rx mcg-4.5 mcg/actuation aerosol inhaler (Symbicort) ipratropium 0.5 mg-albuterol 3 mg 3 ml inhalation Q4H PRN wheezing 06/17/22 06/17/22 Unknown Rx (2.5 mg base)/3 mL nebulization #90 mL soln ipratropium bromide 0.02 % 2.5 ml inhalation Q6H PRN 06/17/22 06/17/22 Unknown History solution for inhalation tiotropium bromide 18 mcg capsule 1 cap inhalation DAILY #30 06/17/22 06/17/22 Unknown Rx with inhalation device (Spiriva inhalations with HandiHaler) nebulizer accessories #1 ea 06/18/22 Unknown Rx sodium chloride 3 % for 4 ml inhalation BID PRN congestion 06/18/22 Unknown Rx nebulization #240 mL Allergies Allergy/AdvReac Type Severity Reaction Status Date / Time Iodinated Contrast Media Allergy Severe anaphylaxis Verified 06/17/22 12:00 PFSH Acute PFSH: Medical History (Updated 08/20/22 @ 20:41 by Conor Madera MD) Atrial fibrillation CHF (congestive heart failure) COPD (chronic obstructive pulmonary disease) 2L Coronary artery disease History of type 2 diabetes mellitus Hyperlipidemia Hypertension Legally blind NATHALY (obstructive sleep apnea) Nightly CPAP Surgical History History of heart artery stent Social History Smoking and tobacco status: former smoker Quit status (tobacco): has quit using tobacco Year quit tobacco: August 2020 [id number] Second hand smoke exposure: Yes Smoking risk assessment/counseling performed?: Yes Alcohol intake: never Caregiver/support person: Yes Lives independently: Yes Household members: significant other Marital status: service: Yes Current occupational status: retired and disabled Pets and animals: Yes Current gender identity: Male Vitals/I&O/Wt Last Vital Signs Pulse 87 08/20/22 18:30 Resp 24 H 08/20/22 18:30 BP 104/61 08/20/22 18:30 Pulse Ox 96 08/20/22 18:30 O2 Del Method 08/20/22 16:59 O2 Flow Rate 2 08/20/22 16:59 08/20/22 08/20/22 08/20/22 06:59 14:59 22:59 Intake Total 100 / 100 Balance 100 / 100 Weight last 48 hrs Weight 163.293 kg Physical Exam Narrative: stepped out Const: COMMON NORMALS: patient oriented x3 and alert GENERAL APPEARANCE: cooperative NUTRITIONAL APPEARANCE: obese morbidly obese ORIENTATION/CONSCIOUSNESS: Yes awake HENMT: COMMON NORMALS: oropharynx normal Resp: AUSCULTATION: wheezes Cardio: COMMON NORMALS: no JVD, regular rhythm, S1 normal heart sound present, S2 normal heart sound present and No murmurs present (Cardio) RATE: tachycardic RHYTHM: abnormal rhythm irregularly irregular HEART SOUNDS: S1 normal heart sound present and S2 normal heart sound present GI: COMMON NORMALS: Normal to inspection, nondistended, normoactive bowel sounds present, Soft to palpation and non-tender PALPATION: Yes Soft to palpation Extremity: COMMON NORMALS: no joint enlargement and no pedal edema Neuro: COMMON NORMALS: patient oriented x3 and moves all extremities SENSORIUM/ORIENTATION: Yes alert Skin: COMMON NORMALS: no rashes or lesions noted GENERAL SKIN EXAM: no rashes or lesions noted Sepsis: Is patient septic: Yes Data 08/20/22 16:33 08/20/22 16:33 Micro: Microbiology 08/20/22 18:25 Blood Culture - Preliminary Blood SPECIMEN COLLECTED 08/20/22 18:42 Blood Culture - Preliminary Blood SPECIMEN COLLECTED A&P Assessment and plan (1) Chest pain: Episode of chest pain on presentation that brought him to the hospital with response to nitroglycerin, but then radiating to his neck and shoulders. Currently this is resolved. In ER with a number of additional finding as below. Also went into A-fib with RVR and low 100s. Has history of atrial fibrillation. Troponin with moderate elevation. EKG on my interpretation with atrial fibrillation. Complete troponin EKG series. Monitor on telemetry. His stents were probably about 20 years ago, it does not appear that he has had any stress test at least recently. Unfortunately echocardiogram last time unsuccessful. Discussed with him consideration of ultrasound with contrast study. He is very afraid of contrast given iodinated contrast allergy that he states nearly resulted in his . Attempted to reach ultrasound to confirm that our US contrast does not have iodine in it, however, could not get a hold of anybody tonight. Please confirm with ultrasound department in the morning, consider assessment by echo contrast study. Consider further assessment, risk stratification, possibly a stress test, depending on findings and his condition. (2) Sepsis: Sepsis, with leukocytosis 19, tachypnea 24, source pulmonary with suspected pneumonia, with pulmonary infiltrates additionally cannot exclude possible cha lonephritis. Urine studies pending. Perinephric edema on CT. Alternatively could be secondary to renal insufficiency. With endorgan injury, with acute kidney injury creatinine 2.3, lactic acidosis 2.9. Blood cultures collected. Empirically received ceftriaxone and doxycycline. For now we will continue with Zosyn, doxycycline. Appears to have response to fluid challenge in ER. Hold off additional boluses for now given history of CHF. Hold Lasix for now. In case hypotensive may need pressors. Blood pressure is low in ER. Concern for impending septic shock. Initial admission to ICU requested from ER. (3) EDWIN (acute kidney injury): Suspect in relation to sepsis, possibly secondary to pneumonia, cannot exclude pyelonephritis. No obstruction noted on CT. Hold lisinopril. Also states he takes ibuprofen at home, hold and discontinue. Hold Lasix for now. UA pending, add urine urea, creatinine. Received fluid challenge in ER. Follow-up renal function requested. (4) Hyperkalemia: Hold lisinopril. Lobe diet. Follow-up potassium level. (5) Pneumonia: Zosyn, doxycycline as above. Sputum cultures if able to provide. MRSA PCR. Urine bacterial antigens. (6) Abnormal CT scan, kidney: Perinephric edema, possibly secondary to his renal insufficiency, however, cannot exclude pyelonephritis given his overall picture, possible sepsis. UA ordered, pending sample. (7) Acute anemia: On anticoagulation, also takes daily aspirin. Acute normocytic anemia, h emoglobin 10.2, previously 13.3 but that was back in 2019. Also states takes ibuprofen. With epigastric pain on presentation. He is blind so I do not think he can tell us about dark or bloody stools. IV 40 mg PPI twice daily. Follow-up hemoglobin requested. Consideration of possibility of upper GI bleeding. Hemoccult stool. Hold Eliquis for now. Reports was being referred for colonoscopy. May need upper endoscopy. (8) Kidney lesion: Please refer for follow-up. Left kidney exophytic 14 mm probable cyst, appears somewhat hyperdense, further evaluation with nonemergent renal ultrasound advised to evaluate for suspected cystic versus potentially solid nature. (9) Rib fractures: Chronic fractures. Lidocaine patch. Incentive spirometry. Consider postdischarge assessment for osteoporosis. Plan Trace pericardial effusion Scattered enlarged mediastinal lymph nodes measuring up to 15 mm,similar to prior exam, nonspecific. A-fib with RVR: Blood pressure soft and with EDWIN, decrease metoprolol to 12.5 mg twice daily for now. Monitor heart rate, blood pressures. Follow-up renal function requested check TSH, magnesium. Legally blind, COPD, normally on 2 L of oxygen. Does not appear currently in exacerbation. DuoNebs requested. CHF, noted cardiomegaly. Does not appear currently in exacerbation. NATHALY, nightly CPAP requested history of CAD, takes a daily aspirin, atrial fibrillation on anticoagulation, hold Eliquis for now with acute anemia. morbid obesity, HTN, HLD Requested medications to be confirmed, please reconcile once available. Discussed with ER physician, ER documentation reviewed. Attestations Medical Necessity Statement*: Admission of over 2 nights anticipated for assessment and management of sepsis, pneumonia, possible plantar fasciitis, acute anemia in a gentleman with underlying CAD, presenting with chest pain, with finding of EDWIN, electrolyte normality with hyperkalemia, among additional problems noted as above. Critical Care Time: 20 mins Diagnoses Chest pain R07.9 Sepsis A41.9 EDWIN (acute kidney injury) N17.9 Hyperkalemia E87.[address] scan, kidney R93.429 Acute anemia D64.9 Kidney lesion N28.9 Rib fractures S22.49XA
[2022-08-20] MEDS: pantoprazole 40 mg SDV IVP (21:21)
[2022-08-20 21:40] LABS: Add Urine Microscopic? YES; Bilirubin Urine Neg (Negative); Blood Urine Neg (Negative); Glucose Urine UA Norm (Normal); Ketones Urine 1+ (Negative); Leukocyte Esterase Urine Trace (Negative); Nitrate Urine Negative (Negative); Protein Urine Trace (Negative); Specific Gravity, Urine 1.025 (1.005-1.030); Urine Appearance Clear (CLEAR); Urine Color Yellow (Yellow); Urobilinogen Urine 1 mg/dL (Negative); pH Urine 5 (5-7)
[2022-08-20 21:46] LABS: Bacteria Urine 1+ /hpf; RBC Urine 0-4 /hpf (0-2); Squamous Epithelial Cell Urine 0-4 /hpf (0-5)
[2022-08-20 21:50] LABS: Calcium Oxalate Crystals Urine 0-4 /hpf
--- NOTE | 2022-08-20 22:13 | ECG_ITS ---
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 Measurements Intervals [place] Rate: 90 P: 0 WA: 0 QRS: -61 QRSD: 109 T: 90 QT: 359 QTc: 440 Interpretive Statements ATRIAL FIBRILLATION PATTERN CONSISTENT WITH PULMONARY DISEASE LEFT ANTERIOR FASCICULAR BLOCK [QRS AXIS <= -45, QR IN I, RS IN II] MINIMAL ST DEPRESSION [0.025+ mV ST DEPRESSION] Compared to ECG 08/20/2022 18:12:56 Left anterior fascicular block now present ST (T wave) deviation now present Electronically Signed On 08-21-2022 23:10:15 CDT by Gadiel Kinsey M.D. [id number]
[2022-08-20 22:54] LABS: Hemoglobin 9.8 g/dL (11.7-16.6)
[2022-08-20 23:14] LABS: Troponin 5 6HR 75.47 ng/L (0-15)
[2022-08-20 23:18] LABS: Troponin 5 6HR Delta -16.53 ng/L (0-12)
[2022-08-20] MEDS: heparin 5,000 unit/mL INJ 1 mL 5000 UNIT SUBCUT (23:20)
[2022-08-20] MEDS: ondansetron 2 mg/ML SDV 2 mL 4 MG IVP (23:21)
[2022-08-20] MEDS: piperacillin-tazobactam 3.375 GM in sodium chloride 0.9% (plus) 50 ML IV (23:21)
[2022-08-21] VITALS (50 sets, daily range): BP systolic 86–156; BP diastolic 43–88; PULSE 101–152; RESP 9–32; TEMP 36.6–37.1; O2SAT 87–98; BMI 50.6
[2022-08-21 00:51] LABS: Urine Creatinine 210 mg/dL (39-259)
[2022-08-21 01:34] LABS: Urea Nitrogen,Urine Random 253 mg/dL
[2022-08-21 02:11] LABS: Adenovirus Not Detected (NOT DETECT); Chlamydia Pneumoniae Not Detected (NOT DETECT); Coronavirus 229E,HKU1,NL63,OC4 Not Detected (NOT DETECT); Human Metapneumovirus Not Detected (NOT DETECT); Human Rhinovirus/Enterovirus Not Detected (NOT DETECT); Influenza A Not Detected (NOT DETECT); Influenza A H1 Not Detected (NOT DETECT); Influenza A H1-2009 Not Detected (NOT DETECT); Influenza A H3 Not Detected (NOT DETECT); Influenza B Not Detected (NOT DETECT); Mycoplasma Pneumoniae Not Detected (NOT DETECT); Parainfluenza Virus Type 1 Not Detected (NOT DETECT); Parainfluenza Virus Type 2 Not Detected (NOT DETECT); Parainfluenza Virus Type 3 Not Detected (NOT DETECT); Parainfluenza Virus Type 4 Not Detected (NOT DETECT); Respiratory Syncytial Virus A Not Detected (NOT DETECT); Respiratory Syncytial Virus B Not Detected (NOT DETECT); SARS-COV-2 Not Detected (NOT DETECT)
[2022-08-21] MEDS: ipratropium-albuterol 3 mL Neb INHALATION ×2 (02:57→08:10)
[2022-08-21] MEDS: doxycycline 100 MG in sodium chloride 0.9% (plus) 100 ML IV (05:14)
[2022-08-21 05:35] LABS: Basophils % 0.2 %; Eosinophils # 0.1 10^3/uL (0.0-0.8); Eosinophils % 0.6 %; Hematocrit 32.9 % (42.0-52.0); Hemoglobin 9.7 g/dL (11.7-16.6); Lymphocytes # 2.1 10^3/uL (0.8-4.8); Lymphocytes % 11.8 %; Mean Corpuscular HGB Conc 29.5 g/dL (30.0-36.0); Mean Corpuscular Hemoglobin 24.3 pg (28.0-34.0); Mean Corpuscular Volume 82.5 fl (80-94); Mean Platelet Volume 11.5 fL (7.4-10.4); Monocytes # 1.7 10^3/uL (0.2-0.9); Monocytes % 9.1 %; Neutrophils # 14.19 10^3/uL (1.8-7.7); Nucleated Red Blood Cells % 0 %; Platelet Count 474 10^3/cmm (130-400); Red Blood Count 3.99 10^6/uL (4.1-5.3); Red Cell Distribution Width 17.7 % (12.1-15.1); White Blood Count 18.2 10^3/uL (4.0-10.0)
[2022-08-21 05:56] LABS: Alanine Aminotransferase 11 U/L (0-41); Albumin Level 3.4 g/dL (3.5-5.2); Alkaline Phosphatase 126 U/L (40-130); Aspartate Amino Transferase 17 U/L (0-40); Blood Urea Nitrogen 65 mg/dL (8-23); Calcium 7.8 mg/dL (8.5-10.5); Carbon Dioxide 29 mmol/L (22-29); Chloride 97 mmol/L (98-107); Globulin 3.3 g/dL (1.3-4.6); Glomerular Filtration Rate 22.6 mL/min (90-130); Glucose 113 mg/dL (65-115); Magnesium 1.9 mg/dL (1.7-2.3); Osmolality Calculated 305 mOsm/kg (285-295); Sodium 138 mmol/L (136-145); Thyroid Stimulating Hormone 2.01 uIU/mL (0.27-4.20); Total Bilirubin 0.2 mg/dL (0.15-1.2); Total Protein 6.7 g/dL (6.6-8.7)
[2022-08-21] MEDS: piperacillin-tazobactam 3.375 GM in sodium chloride 0.9% (plus) 50 ML IV ×3 (06:12→21:33)
--- NOTE | 2022-08-21 06:20 | ECG_ITS ---
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 Measurements Intervals [place] Rate: 114 P: 0 GA: 0 QRS: 7 QRSD: 93 T: 70 QT: 304 QTc: 419 Interpretive Statements ATRIAL FLUTTER/TACHYCARDIA WITH RAPID VENTRICULAR RESPONSE LOW QRS VOLTAGE [QRS DEFLECTION < 0.5/1.0 mV IN LIMB/CHEST LEADS] Compared to ECG 08/20/2022 19:05:38 Low QRS voltage now present Atrial fibrillation no longer present Left anterior fascicular block no longer present ST (T wave) deviation no longer present Electronically Signed On 08-21-2022 23:14:04 CDT by Gadiel Kinsey M.D. [id number]
[2022-08-21] MEDS: pantoprazole 40 mg SDV IVP ×2 (07:32→21:32)
[2022-08-21] MEDS: calcium gluconate 0.9% NaCL 1 GM/50 ML PREMIX IV ×3 (07:33→14:50)
[2022-08-21] MEDS: sodium polystyrene sulfonate 15 gm/60 mL Btl PO ×3 (07:33→21:32)
[2022-08-21] MEDS: insulin regular-human 10 UNIT in SYRINGE 1 EACH 100 UNIT IVP ×2 (07:46→14:57)
[2022-08-21] MEDS: lidocaine 5% Patch 1 PATCH TOPICAL ×2 (08:15→21:33)
[2022-08-21] MEDS: metoprolol tartrate 25 mg Tablet PO (08:15)
[2022-08-21] MEDS: aspirin 81 mg EC Tablet PO (08:15)
[2022-08-21] MEDS: sucralfate 1 gm Tablet PO ×2 (08:16→21:32)
[2022-08-21] MEDS: budesonide 0.5 mg/2 mL Neb INHALATION ×2 (09:28→20:01)
[2022-08-21] MEDS: heparin 5,000 unit/mL INJ 1 mL 5000 UNIT SUBCUT (09:41)
--- NOTE | 2022-08-21 10:08 | PC.PHAR ---
PT STS TAKES CARE OF HIS MEDICATIONS - MEDICATIONS VERIFIED USING MED LIST FROM [facility] AND I TALKED TO HIS WILFRIDO [phone]
[2022-08-21 10:47] LABS: Ferritin 16 ng/mL (30-400); Iron 11 ug/dL (59-158); Percent Saturation 4.1 % (20-50); Total Iron Binding Capacity 265 mcg/dl; Unsaturated Iron Binding 254 ug/dL (112-347)
[2022-08-21 12:45] LABS: Creatine Phosphokinase 57 U/L (39-308)
--- NOTE | 2022-08-21 13:24 | PC.NURSE ---
noted tremor. pt related they are much worse here that they are at home on bipap unable to tolerate any activity without severe dyspnea and sats drop.. very weak unable to stand without max assist of 3 .
[2022-08-21 14:10] LABS: ABG PCO2 54.6 mmHg (35-45); ABG PH Result 7.34 (7.35-7.45); Alveolar-Arterial Oxygen Gradi 28.5 mmHg (5-10); Arterial Blood Gas Hematocrit 29.1 % (42-52); Base Excess ABG 2.6 mmol/L (-2.0-2.0); Blood Gas Allen Test Pos; Blood Gas Operator Identificat MONRO; Blood Gas Sample Site Brachial, right; Blood Gas Sample Type Arterial; Carboxyhemoglobin 1.4 %THgb (0.4-20.1); HCO3 ABG 29.1 mmol/L (22-26); HGB O2 Sat 91.6 % (95-100); Ionized Calcium Level - ABG 1.1 mmol/L (1.1-1.4); Methemoglobin 0.4 % (0.4-1.5); Oxygen Device BIPAP; Oxygen Saturation ABG 93.3; PO2 ABG 66.8 mmHg (80.0-100.0); Potassium Level - ABG 6.7 mmol/L (3.5-5.0); Total Hemoglobin 9.5 g/dL (14-18)
[2022-08-21 14:25] LABS: Blood Urea Nitrogen 70 mg/dL (8-23); Calcium 7.9 mg/dL (8.5-10.5); Carbon Dioxide 26 mmol/L (22-29); Chloride 97 mmol/L (98-107); Glomerular Filtration Rate 19.4 mL/min (90-130); Glucose 143 mg/dL (65-115); Osmolality Calculated 303 mOsm/kg (285-295); Sodium 135 mmol/L (136-145)
[2022-08-21 14:29] LABS: Anion Gap 19.2 (5-19)
[2022-08-21 14:30] LABS: Potassium 7.2 mmol/L (3.5-5.1)
[2022-08-21] MEDS: FUROsemide 10 mg/mL SDV 10mL 80 MG IVP (14:50)
--- NOTE | 2022-08-21 14:54 | USR_ITS ---
PROCEDURE INFORMATION: Exam: US Duplex Lower Extremity Veins, Bilateral Exam date and time: 08/21/2022 9:47 PM Age: 67 years old Clinical indication: Swelling (edema) of limb; Lower extremity, bilateral; Additional info: Dvt, 1818 patient getting dialysis and family in room will return around 2100 TECHNIQUE: Imaging protocol: Real-time duplex ultrasound of the bilateral extremities with 2-D montelongo scale, color Doppler flow and spectral waveform analysis including responses to compression and other maneuvers (when performed) with image documentation. Complete exam focused on the lower extremity veins. COMPARISON: [place] [id number] 08/20/2022 6:50 PM FINDINGS: Right deep veins: Unremarkable. The common femoral, femoral, proximal profunda femoral and popliteal veins are patent without thrombus. Normal Doppler waveforms. Normal compressibility and/or augmentation response. Right superficial veins: Saphenofemoral junction is patent without thrombus. Left deep veins: Unremarkable. The common femoral, femoral, proximal profunda femoral and popliteal veins are patent without thrombus. Normal Doppler waveforms. Normal compressibility and/or augmentation response. Left superficial veins: Saphenofemoral junction is patent without thrombus. Soft tissues: Unremarkable. US/[place] [id number] IMPRESSION: No evidence of deep vein thrombosis.
[2022-08-21] MEDS: sodium bicarbonate 1 mEq/mL SDV 50mL 100 MEQ IVP (14:57)
[2022-08-21] MEDS: albuterol 2.5 mg/3 mL Neb INHALATION (14:58)
[2022-08-21] MEDS: ipratropium 0.5 mg/2.5 mL Neb INHALATION ×2 (14:59→20:01)
[2022-08-21] MEDS: morphine 4 mg/mL SDV 1 mL 1 MG IVP (15:13)
--- NOTE | 2022-08-21 15:15 | XR_ITS ---
WS: [id number] EXAMINATION: XR chest 1V portable [id number] REASON FOR EXAM: sob COMPARISON: 08/20/2022 ORDER DATE: 08/21/2022 3:20 PM TECHNIQUE: A single, portable frontal chest x-ray was obtained. X-RAY FINDINGS: Lungs: Lung volumes are decreased. There is patchy ground-glass opacities in the lung bases with indistinct nodular consolidative opacities at the left lung base concerning for pneumonia. Pleural spaces: Unremarkable. No pleural effusion. No pneumothorax. Heart/Mediastinum: Heart is enlarged, atherosclerotic aortic change Bones/joints: Unremarkable for age. XR/XR chest 1V portable [id number] IMPRESSION: Cardiomegaly with bibasilar opacities more pronounced at the left lung base con sistent with patchy atelectasis but concerning for pneumonia. Clinical correlat ion and laboratory assessment recommended.
--- NOTE | 2022-08-21 15:15 | P.PN_ITS ---
Subjective Subjective: - Patient was examined multiple times throughout the morning and into the afternoon -This morning patient tells me that he came to the hospital because he was not feeling well, he was having chest pain, does report shortness of breath and cough -Denies any flank pain -He tells me that he saw a physician in [place] because of his anemia and he was supposed to have follow-up with a surgeon here in [place] for colonoscopy -Patient at times becomes confused, alert to person, to place, not to time -Patient keeps asking me about his , it turns out it is staff , he tells me that they did not come and see him in the hospital he has been here for days I had to reorient patient, that he is only been here for 24 hours or so, -I discussed his morbidity mortality with respiratory failure, pneumonia, fluid overload, that he might need dialysis, -I also discussed his hyperkalemia, he is received several medications for hyperkalemia which I will replete discussed morbidity mortality associate with hyperkalemia, he voiced understanding but I do not feel that he understands the significance of the information I am giving to him -He can follow commands such as squeezing my fingers, wiggling his toes, but becomes distracted quite easily, -Patient is legally blind, -Patient was reexamined the afternoon, he continues to complain of shortness of breath urine output is lackluster, I discussed dialysis with him again, I am worried about fluid overload, his potassium remains 7.2, I also had a discussion with patient's ex-, over the phone, discussed patient's sepsis, pneumonia, UTI, his COPD, now developing renal failure with electrolyte abnormalities and fluid overload requiring dialysis he remains hyperkalemic -I discussed dialysis with patient's and patient, patient is agreeable, -Spoke to nephrology, plan is to go ahead and proceed with dialysis due to persistent hyperkalemia -Spoke to Dr. Segal pulmonary, proceed with dialysis catheter placement -Repeat ABG shows pH of 7.34, with a PCO2 of 54, PaO2 of 66 on 50% -Currently patient is on BiPAP, 50% FiO2, he does follow commands, but encephalopathic has at times he can become confused, but he does understand that he is going to need dialysis -Placed on Precedex for agitation Vitals/I&O/Wt Last Vital Signs Temp 97.9 F 08/21/22 04:00 Pulse 125 H 08/21/22 15:13 Resp 21 H 08/21/22 15:13 BP 114/83 08/21/22 12:00 Pulse Ox 90 08/21/22 15:13 O2 Del Method 08/21/22 15:11 O2 Flow Rate 60 08/21/22 15:13 FiO2 100 08/21/22 15:13 08/21/22 08/21/22 08/21/22 06:59 14:59 22:59 Intake Total 200 / 1350 890.1 / 890.1 Output Total 450 / 450 Balance -250 / 900 890.1 / 890.1 Weight last 48 hrs Weight 160.118 kg Weight 160.118 kg Weight 163.293 kg Physical Exam Urinary Catheter Management: Blake: Cath Placed During This Visit: yes Reason for Continuing Indwelling Catheter: Accurate Measurement of Urinary Output in Critically Ill Patients Urinary Catheter Date of Insertion: 08/20/22 Urinary Catheter Time of Insertion: 21:16 Data 08/21/22 04:54 08/21/22 13:56 Micro: Microbiology 08/20/22 23:00 MRSA Culture - Final Nose 08/20/22 23:00 Bacterial Antigens - Final Urine,Voided 08/20/22 23:00 Legionella Urinary Antigen - Final Urine Catheterized 08/20/22 18:25 Blood Culture - Preliminary Blood SPECIMEN COLLECTED 08/20/22 18:42 Blood Culture - Preliminary Blood SPECIMEN COLLECTED A&P Assessment and plan (1) Chest pain: (2) Sepsis: (3) EDWIN (acute kidney injury): (4) Hyperkalemia: (5) Pneumonia: (6) Abnormal CT scan, kidney: (7) Acute anemia: (8) Kidney lesion: (9) Rib fractures: Chronic fractures. Lidocaine patch. Incentive spirometry. Consider postdischarge assessment for osteoporosis. (10) NSTEMI (non-ST elevated myocardial infarction): (11) Hyperkalemia: (12) Acute respiratory failure with hypoxia: (13) GI bleed: (14) Acute encephalopathy: Plan Acute hypoxic hypercarbic respiratory failure -Likely multifactorial -From pneumonia -From COPD exacerbation -Now for fluid overload, given acute renal failure Plan -Continue BiPAP -Low threshold for intubation -Broad-spectrum antibiotic therapy vancomycin, Zosyn -We will give a trial of Lasix -Fluid restrictions -Pulmonary consulted for dialysis catheter placement for hemodialysis to help with fluid overload -Full code -SCDs for DVT prophylaxis, anticoagulation relatively contraindicated given his anemia, concerns for GI bleed Acute renal failure -Likely secondary to hypotensive episode in the emergency room -Likely secondary to sepsis -Possibly related to NSAID use -Urine output remains lackluster -Nephrology consulted -Will be dialyzed Sepsis related to pneumonia, UTI, with acute renal failure, with acute encephalopathy Pneumonia -Antibiotics as above -Sputum cultures, blood cultures UTI with evidence of radiographic evidence of pyelonephritis -Continue broad-spectrum aerobic therapy -Monitor urine output -Monitor for fevers Acute encephalopathy -Likely secondary to sepsis -Likely secondary to uremia -Neurochecks, aspiration precautions -Precedex drip for agitation Acute hyperkalemia -Likely secondary to acute renal failure -Has failed 2 rounds of insulin/D50/calcium gluconate/Kayexalate -We will need dialyzed -Continue telemetry monitoring Acute anemia Concerns for slow GI bleed/with evidence of iron deficiency anemia -Also some, related to renal failure -Hemoglobin 9.7 -Patient has evidence of iron deficiency anemia, low iron, low ferritin -He was supposed to have a colonoscopy at [facility] but it could not be done in time -Hold antiplatelet and anticoagulant therapy -Continue Protonix, Carafate -Monitor hemoglobin Acute chest pain -Likely secondary to hyperkalemia -However cannot rule out underlying cardiac etiology -Serial EKGs serial troponins telemetry monitoring Trace pericardial effusion Scattered enlarged mediastinal lymph nodes measuring up to 15 mm,similar to prior exam, nonspecific. A-fib with RVR: Blood pressure soft and with EDWIN, decrease metoprolol to 12.5 mg twice daily for now. Monitor heart rate, blood pressures. Follow-up renal function requested check TSH, magnesium. Legally blind, COPD, normally on 2 L of oxygen. Does not appear currently in exacerbation. DuoNebs requested. CHF, noted cardiomegaly. Looks fluid overloaded on chest x-ray, concerns for pulm edema worsening respiratory failure, will receive dialysis, not responding to Lasix NATHALY, nightly CPAP requested history of CAD, takes a daily aspirin, atrial fibrillation on anticoagulation, hold Eliquis for now with acute anemia. morbid obesity, HTN, HLD Spoke to pulmonary, spoke to nephrology, spoke to nursing staff Attestations Medical Necessity Statement*: Patient requires hospitalization for acute respiratory failure, acute renal failure, sepsis, hyperkalemia, acute anemia, chest pain, A-fib, COPD, Coding Level of Care Code Critical Care >/= 30 minutes Critical care time (in minutes): 70 The high probability of a clinically significant, sudden or life threatening deterioration, as referenced in this documentation, required my full and direct attention, intervention and personal management. The critical care time shown is in addition to time spent performing any reported separately billable procedures and includes the following: [x] Data and vital sign review and interpretation [x ] Patient assessment, examination and intervention [x] Medication orders and management [x] Patient/Family updates as able [x] Care Coordination and Do cumentation. Diagnoses Chest pain R07.9 Sepsis A41.9 EDWIN (acute kidney injury) N17.9 Hyperkalemia E87.[address] scan, kidney R93.429 Acute anemia D64.9 Kidney lesion N28.9 Rib fractures S22.49XA NSTEMI (non-ST elevated myocardial infarction) I21.4 Hyperkalemia E87.5 Acute respiratory failure with hypoxia J96.01 GI bleed K92.2 Acute encephalopathy G93.40
--- NOTE | 2022-08-21 15:15 | PC.PHAR ---
Pharmacokinetic dosing service Give Vancomycin 1500 mg q 24 hrs with an expected Cpeak of 36.5 mcg/ml and an expected Ctrough of 17.48 mcg/ml Objective: Age: 67 yo Serum creatinine: 3.2 mg/dL Height: 70.1 Inches Weight (kg): 160 Assessment: IBW (kg): 73.23 Dosing wt(kg): 107.9 Estimated Creatinine clearance (ml/min): 33.7 CRCL method: [place] and Gault using adjusted body weight Drug selected: Vancomycin Vd (liters): 75.5 (factor used: 0.7 L/kg) Jethro (hr-1): 0.032 Half life (hrs): 21.66 CLvanco=?? 2.416 L/hr Recommended dose: 1500 mg Interval: 24 hrs Infusion time (hrs): 1 Predicted peak (mcg/mL): 36.5 Predicted trough (mcg/mL): 17.48 Adjusted body weight was selected for vancomycin dosing. Recommendations: Give Vancomycin 1500 mg q 24 hrs with an expected Cpeak of 36.5 mcg/ml and an expected Ctrough of 17.48 mcg/ml Thank you for the consult, will continue to follow.
--- NOTE | 2022-08-21 16:10 | PM.CONSULT ---
Providers/Reason For Consult Consulting Physician/Specialty*: Kehinde Segal MD, [facility] Reason for Consult*: EDWIN requiring hemodialysis-consulted for hemodialysis catheter placement Requesting Physician: Moisés Landon MD Attending Physician: Moisés Landon MD Primary Care Provider: Lovely Ivey MD History of Present Illness History of Present Illness Artie Quiles is a 67 year old male legally blind, with history of COPD, CHF, normally on 2 L of oxygen, NATHALY, nightly on CPAP, history of CAD, takes a daily aspirin, atrial fibrillation on anticoagulation, morbid obesity, HTN, HLD?presented for central chest chest pain which improved with nitroglycerin. Patient uses 2 L home oxygen for his COPD. He had a hypotensive episodes recorded in the ER as low as 88/51. He also went into A-fib RVR. Chest x-ray showed cardiomegaly with bibasilar opacities more pronounced in left lung base concerning for pneumonia. Subsequent CT chest abdomen pelvis without contrast showed bilateral dependent atelectasis versus infiltrate scattered enlarged mediastinal lymph nodes which are nonspecific. Cardiomegaly trace pericardial effusion. Coronary artery atherosclerotic calcifications. CT abdomen pelvis showed nonobstructing renal calyceal stone in left kidney, perinephric edema likely reflecting renal insufficiency-correlate for pyelonephritis. Umbilical hernia containing omentum without bowel. Patient also gives history of taking ibuprofen at home. He was admitted for hypotension. Troponin with moderate elevation. EKG showed atrial fibrillation. Nondiagnostic echocardiogram due to body mass habitus. Recommended echo with contrast but patient is afraid of contrast due to allergy which nearly resulted in his . Other labs are consistent with sepsis with leukocytosis 19 K, tachypnea 24, suspected pulmonary infection on imaging, pyelonephritis on CT abdomen pelvis-cultures pending-started on empiric Rocephin and doxycycline. Due to hypotensive episodes-there is a concern for impending septic shock-unfortunately he suffered from EDWIN on his baseline CKD. In the next 24 hours his renal functions are deteriorating, urine output started worsening, hyperkalemia which did not respond to medical management. Nephrology team consulted and they recommended for urgent hemodialysis Pulmonary critical care consulted for hemodialysis catheter placement. I saw patient at bedside He is on BiPAP 50% FiO2. -He is following commands and responding to questions appropriately -Complained that he did not feel well at home with a central chest pain-he thinks it has improved somewhat. -Other labs and imaging reviewed to the most part intermittent Review of Systems General: Reports: 10 or more systems reviewed and unremarkable except in HPI and below Medications/Allergies Home Medications Medication Instructions Recorded Confirmed Last Taken Type apixaban 5 mg tablet 5 mg PO BID 11/27/20 08/21/22 Unknown History aspirin 81 mg tablet,delayed 81 mg PO DAILY 11/27/20 08/21/22 Unknown History release (Adult Low Dose Aspirin) atorvastatin 80 mg tablet 40 mg PO DAILY 11/27/20 08/21/22 Unknown History cholecalciferol (vitamin D3) 50 50 mcg PO DAILY 11/27/20 08/21/22 Unknown History mcg (2,000 unit) capsule docusate sodium 100 mg capsule 100 mg PO BID PRN Constipation 11/27/20 08/21/22 Unknown History lisinopril 20 mg tablet 10 mg PO DAILY 11/27/20 08/21/22 Unknown History metformin 1,000 mg tablet 1,000 mg PO BID 11/27/20 08/21/22 Unknown History nitroglycerin 0.4 mg sublingual 0.4 mg sublingual Q5M PRN Chest 11/27/20 08/21/22 Unknown History tablet Pain omeprazole 20 mg capsule,delayed 20 mg PO DAILY 11/27/20 08/21/22 Unknown History release polyethylene glycol 3350 17 17 g PO DAILY PRN Constipation 11/27/20 08/21/22 Unknown History gram/dose oral powder pregabalin 150 mg capsule 150 mg PO BID 11/27/20 08/21/22 Unknown History inhalational spacing device (Allan #1 ea 05/20/21 08/21/22 Unknown Rx Aerosol [place] Enhancer spacer) multivitamin 1 tab PO DAILY 08/11/21 08/21/22 Unknown History metoprolol tartrate 50 mg tablet 50 mg PO BID #240 tabs 04/28/22 08/21/22 Unknown Rx guaifenesin 600 mg tablet, 600 mg PO Q12H PRN congestion #60 05/26/22 08/21/22 Unknown Rx extended release 12 hr (Mucinex) tabs albuterol sulfate 90 mcg/actuation 1 inh inhalation QID PRN shortness 06/17/22 08/21/22 Unknown Rx aerosol inhaler (Ventolin HFA) of breath or wheezing #8.5 grams budesonide-formoterol HFA 160 2 puff inhalation BID #10.2 grams 06/17/22 08/21/22 Unknown Rx mcg-4.5 mcg/actuation aerosol inhaler (Symbicort) ipratropium 0.5 mg-albuterol 3 mg 3 ml inhalation Q4H PRN wheezing 06/17/22 08/21/22 Unknown Rx (2.5 mg base)/3 mL nebulization #90 mL soln ipratropium bromide 0.02 % 2.5 ml inhalation Q6H PRN 06/17/22 08/21/22 Unknown History solution for inhalation Shortness Of Breath Or Wheezing tiotropium bromide 18 mcg capsule 1 cap inhalation DAILY #30 06/17/22 08/21/22 Unknown Rx with inhalation device (Spiriva inhalations with HandiHaler) nebulizer accessories #1 ea 06/18/22 08/21/22 Unknown Rx sodium chloride 3 % for 4 ml inhalation BID PRN congestion 06/18/22 08/21/22 Unknown Rx nebulization #240 mL albuterol sulfate 2.5 mg/3 mL 2.5 mg inhalation Q4H PRN 08/21/22 08/21/22 Unknown History (0.083 %) solution for nebulization Shortness Of Breath Or Wheezing ascorbic acid (vitamin C) 500 mg 1,000 mg PO DAILY 08/21/22 08/21/22 Unknown History tablet (Vitamin C) diltiazem HCl 120 mg 120 mg PO DAILY 08/21/22 08/21/22 Unknown History tablet,extended release 24 hr ferrous gluconate 324 mg (38 mg 324 mg PO DAILY 08/21/22 08/21/22 Unknown History iron) tablet fluticasone propionate 50 1 spray intranasal DAILY 08/21/22 08/21/22 Unknown History mcg/actuation nasal spray,suspension furosemide 80 mg tablet 80 mg PO BID 08/21/22 08/21/22 Unknown History lidocaine 5 % topical ointment 1 applic topical DAILY PRN Pain 08/21/22 08/21/22 Unknown History loratadine 10 mg tablet 10 mg PO DAILY 08/21/22 08/21/22 Unknown History naloxone 4 mg/actuation nasal spray 4 mg intranasal Q3M PRN Opioid 08/21/22 08/21/22 Unknown History Overdose propranolol 80 mg tablet 40 mg PO TID 08/21/22 08/21/22 Unknown History tamsulosin 0.4 mg capsule 0.4 mg PO DAILY 08/21/22 08/21/22 Unknown History vit C 250 mg-vit E 90 mg-zinc 40 1 tab PO BID 08/21/22 08/21/22 Unknown History mg-copper 1 [id number] capsule (PreserVision AREDS-2) zinc gluconate 50 mg tablet 50 mg PO DAILY 08/21/22 08/21/22 Unknown History Allergies Allergy/AdvReac Type Severity Reaction Status Date / Time Iodinated Contrast Media Allergy Severe anaphylaxis Verified 08/21/22 09:44 Current Medications Generic Name Dose Route Start Last Admin Trade Name Freq PRN Reason Stop Dose Admin Aspirin 81 mg 08/21/22 09:00 08/21/22 08:15 Aspirin 81 Mg Ec Tablet PO 81 mg DAILY SHANTE Administration Budesonide 0.5 mg 08/21/22 09:00 08/21/22 09:28 Budesonide 0.5 Mg/2 Ml Neb INHALATION 0.5 mg BID.RESPIRATORY SHANTE Administration Piperacillin Sod/Tazobactam 50 mls @ 12.5 mls/hr 08/20/22 22:08 08/21/22 15:13 Sod 3.375 gm/ Sodium Chloride IV 12.5 mls/hr Q8H SHANTE Administration Protocol Ipratropium [place] 0.5 mg 08/21/22 14:15 08/21/22 14:59 Ipratropium 0.5 Mg/2.5 Ml Neb INHALATION 0.5 mg Q6H SHANTE Administration Lidocaine 1 patch 08/20/22 22:08 08/21/22 08:15 Lidocaine 5% Patch TOPICAL 1 patch [id number] SHANTE Administration Metoprolol Tartrate 25 mg 08/21/22 06:30 08/21/22 09:26 Metoprolol Tartrate 25 Mg Tablet PO Not Given BID@0900,2100 SHANTE Ondansetron HCl 4 mg 08/20/22 22:08 08/20/22 23:21 Ondansetron 2 Mg/Ml Sdv 2 Ml IVP 4 mg Q8H PRN Administration vomiting, or N/V if npo Pantoprazole Sodium 40 mg 08/20/22 20:30 08/21/22 07:32 Pantoprazole 40 Mg Sdv IVP 40 mg Q12H SHANTE Administration Sodium Polystyrene Sulfonate 15 gm 08/21/22 14:15 08/21/22 15:14 Sodium Polystyrene Sulfonate 15 Gm/60 Ml Btl PO 15 gm Q6H SHANTE Administration Sucralfate 1 gm 08/21/22 07:45 08/21/22 08:16 Sucralfate 1 Gm Tablet PO 1 gm Q12H SHANTE Administration PFSH Acute PFSH: Medical History (Updated 08/21/22 @ 16:24 by Kehinde Segal MD) Atrial fibrillation CHF (congestive heart failure) COPD (chronic obstructive pulmonary disease) 2L Coronary artery disease History of type 2 diabetes mellitus Hyperlipidemia Hypertension Legally blind NATHALY (obstructive sleep apnea) Nightly CPAP Surgical History History of heart artery stent Social History Smoking and tobacco status: former smoker Quit status (tobacco): has quit using tobacco Year quit tobacco: August 2020 [id number] Second hand smoke exposure: Yes Smoking risk assessment/counseling performed?: Yes Alcohol intake: never Caregiver/support person: Yes Lives independently: Yes Household members: significant other Marital status: service: Yes Current occupational status: retired and disabled Pets and animals: Yes Current gender identity: Male Vitals/I&O/Wt Last Vital Signs Temp 97.9 F 08/21/22 04:00 Pulse 125 H 08/21/22 15:13 Resp 21 H 08/21/22 15:13 BP 114/83 08/21/22 12:00 Pulse Ox 90 08/21/22 15:13 O2 Del Method 08/21/22 15:11 O2 Flow Rate 60 08/21/22 15:13 FiO2 100 08/21/22 15:13 08/21/22 08/21/22 08/21/22 06:59 14:59 22:59 Intake Total 200 / 1350 890.1 / 890.1 Output Total 450 / 450 Balance -250 / 900 890.1 / 890.1 Weight last 48 hrs Weight 353 lb Weight 353 lb Weight 360 lb Physical Exam Narrative: General: Morbidly obese, alert and following commands-confused at times HEENT: conj clear, legally blind, PERRL, mmm, Neck: supple, no meningismus Heme: no cervical LAP Respiratory: Inspection: No visible deformity of the chest wall Palpation: Trachea is mildly deviated to the right, bilateral symmetric expansion Percussion: Bilateral tympanic percussion note both anterior and posteriorly Auscultation: Bilateral clear to auscultation both anterior and posteriorly, no crackles wheezing or rhonchi Cardiovascular: rrr, nl s1s2, no mrg Abdomen: soft, nt, nd, no r/g, bs+ Extremities: pulses +, 1+ pedal edema, no c/c : no CVA tenderness Skin: intact, no rash MSK: no back or neck pain Neurologic: grossly intact Urinary Catheter Management: Blake: Cath Placed During This Visit: yes Reason for Continuing Indwelling Catheter: Accurate Measurement of Urinary Output in Critically Ill Patients Urinary Catheter Date of Insertion: 08/20/22 Urinary Catheter Time of Insertion: 21:16 Data 08/21/22 04:54 08/21/22 13:56 Other Labs: Radiology Impressions Chest X-Ray 08/20/22 16:13 IMPRESSION: Cardiomegaly with bibasilar opacities more pronounced at the left lung base concerning for pneumonia. Chest/Abdomen/Pelvis CT 08/20/22 18:13 IMPRESSION: 1. Bilateral dependent atelectasis versus infiltrate. 2. Several chronic posterior left rib fractures. 3. Scattered enlarged mediastinal lymph nodes measuring up to 15 mm, similar to prior exam, nonspecific. 4. Cardiomegaly. 5. Trace pericardial effusion. 6. Coronary artery atherosclerotic calcifications. IMPRESSION: 1. Mildly prominent fluid in the small bowel without dilation may reflect an enteritis. 2. Several hepatic cysts. 3. Left kidney punctate nonobstructing renal calyceal stone. 4. Perinephric edema likely reflecting renal insufficiency, please correlate for possible pyelonephritis. 5. Umbilical hernia containing omentum without bowel. 6. Left kidney exophytic 14 mm probable cyst, appears somewhat hyperdense, further evaluation with nonemergent renal ultrasound advised to evaluate for suspected cystic versus potentially solid nature. Laboratory Results WBC 18.2 10^3/uL (4.0-10.0) H 08/21/22 04:54 RBC 3.99 10^6/uL (4.1-5.3) L 08/21/22 04:54 Hgb 9.7 g/dL (11.7-16.6) L 08/21/22 04:54 Hct 32.9 % (42.0-52.0) L 08/21/22 04:54 MCV 82.5 fl (80-94) 08/21/22 04:54 MCH 24.3 pg (28.0-34.0) L 08/21/22 04:54 MCHC 29.5 g/dL (30.0-36.0) L 08/21/22 04:54 RDW 17.7 % (12.1-15.1) H 08/21/22 04:54 Plt Count 474 10^3/cmm (130-400) H 08/21/22 04:54 MPV 11.5 fL (7.4-10.4) H 08/21/22 04:54 Neut % (Auto) 78.0 % 08/21/22 04:54 Lymph % (Auto) 11.8 % 08/21/22 04:54 [place] % (Auto) 9.1 % 08/21/22 04:54 Eos % (Auto) 0.6 % 08/21/22 04:54 Baso % (Auto) 0.2 % 08/21/22 04:54 Neut # (Auto) 14.19 10^3/uL (1.8-7.7) H 08/21/22 04:54 Lymph # (Auto) 2.1 10^3/uL (0.8-4.8) 08/21/22 04:54 [place] # (Auto) 1.7 10^3/uL (0.2-0.9) H 08/21/22 04:54 Eos # (Auto) 0.1 10^3/uL (0.0-0.8) 08/21/22 04:54 Baso # (Auto) 0.0 10^3/uL (0.0-0.1) 08/21/22 04:54 Nucleated RBC % (auto) 0 % 08/21/22 04:54 Nucleated RBCs # 0.0 /100WBC 08/21/22 04:54 Specimen Type Arterial 08/21/22 13:57 Sample Site Brachial, right 08/21/22 13:57 ABG pH 7.34 (7.35-7.45) L 08/21/22 13:57 ABG pCO2 54.6 mmHg (35-45) H 08/21/22 13:57 ABG pO2 66.8 mmHg (80.0-100.0) L 08/21/22 13:57 ABG HCO3 29.1 mmol/L (22-26) H 08/21/22 13:57 ABG O2 Saturation 93.3 08/21/22 13:57 ABG Base Excess 2.6 mmol/L (-2.0-2.0) H 08/21/22 13:57 [place] Test Pos 08/21/22 13:57 A-a O2 Gradient 28.5 mmHg (5-10) H 08/21/22 13:57 Hematocrit 29.1 % (42-52) L 08/21/22 13:57 Hgb O2 Saturation 91.6 % (95-100) L 08/21/22 13:57 Carboxyhemoglobin 1.4 %THgb (0.4-20.1) 08/21/22 13:57 Methemoglobin 0.4 % (0.4-1.5) 08/21/22 13:57 Total Hemoglobin 9.5 g/dL (14-18) L 08/21/22 13:57 Sodium 137.0 mmol/L (131-143) 08/21/22 13:57 Potassium 6.7 mmol/L (3.5-5.0) H 08/21/22 13:57 Glucose 152.0 mg/dL (70-115) H 08/21/22 13:57 Ionized Calcium 1.1 mmol/L (1.1-1.4) 08/21/22 13:57 O2 Delivery Device Bipap 08/21/22 13:57 O2 Liters/Min 2.0 % 08/20/22 19:48 FiO2 50.0 % 08/21/22 13:57 Inside Sales Account Executive ID [place] 08/21/22 13:57 Sodium 135 mmol/L (136-145) L 08/21/22 13:56 Potassium 7.2 mmol/L (3.5-5.1) H* 08/21/22 13:56 Chloride 97 mmol/L (98-107) L 08/21/22 13:56 Carbon Dioxide 26 mmol/L (22-29) 08/21/22 13:56 Anion Gap 19.2 (5-19) H 08/21/22 13:56 BUN 70 mg/dL (8-23) H 08/21/22 13:56 Creatinine 3.2 mg/dL (0.7-1.2) H 08/21/22 13:56 GFR Calculation 19.4 mL/min (90-130) L 08/21/22 13:56 Glucose 143 mg/dL (65-115) H 08/21/22 13:56 Calculated Osmolality 303 mOsm/kg (285-295) H 08/21/22 13:56 Lactate 2.9 mmol/L (0.5-2.2) H 08/20/22 18:25 Calcium 7.9 mg/dL (8.5-10.5) L 08/21/22 13:56 Magnesium 1.9 mg/dL (1.7-2.3) 08/21/22 04:54 Iron 11 ug/dL (59-158) L 08/21/22 10:05 TIBC 265 mcg/dl 08/21/22 10:05 % Saturation 4.1 % (20-50) L 08/21/22 10:05 Unsat Iron Binding 254 ug/dL (112-347) 08/21/22 10:05 Ferritin 16 ng/mL (30-400) L 08/21/22 10:05 Total Bilirubin 0.2 mg/dL (0.15-1.2) 08/21/22 04:54 AST 17 U/L (0-40) 08/21/22 04:54 ALT 11 U/L (0-41) 08/21/22 04:54 Alkaline Phosphatase 126 U/L (40-130) 08/21/22 04:54 Creatine Kinase 57 U/L (39-308) 08/21/22 10:05 Troponin T Baseline 92 ng/L (0-15) H 08/20/22 16:33 Troponin T 120 Minute 84.64 ng/L (0-15) H 08/20/22 18:25 Delta Troponin T -7.36 ABS# (0-10) L 08/20/22 18:25 Troponin T Hi Sens 6Hr 75.47 ng/L (0-15) H 08/20/22 22:32 Troponin T Hi Sens 6Hr Delta -16.53 ng/L (0-12) L 08/20/22 22:32 NT-Pro-B Natriuret Pep 343 pg/mL (0-125) H 08/20/22 16:33 Total Protein 6.7 g/dL (6.6-8.7) 08/21/22 04:54 Albumin 3.4 g/dL (3.5-5.2) L 08/21/22 04:54 Globulin 3.3 g/dL (1.3-4.6) 08/21/22 04:54 Lipase 25 U/L (13-60) 08/20/22 16:33 TSH 2.01 uIU/mL (0.27-4.20) 08/21/22 04:54 Urine Color Yellow (Yellow) 08/20/22 21:15 Urine Appearance Clear (CLEAR) 08/20/22 21:15 Urine pH 5 (5-7) 08/20/22 21:15 Ur Specific [place] 1.025 (1.005-1.030) 08/20/22 21:15 Urine Protein Trace (Negative) 08/20/22 21:15 Urine Glucose (UA) Norm (Normal) 08/20/22 21:15 Urine Ketones 1+ (Negative) H 08/20/22 21:15 Urine Blood Neg (Negative) 08/20/22 21:15 Urine Nitrate Negative (Negative) 08/20/22 21:15 Urine Bilirubin Neg (Negative) 08/20/22 21:15 Urine Urobilinogen 1 mg/dL (Negative) H 08/20/22 21:15 Ur Leukocyte Esterase Trace (Negative) H 08/20/22 21:15 Urine RBC 0-4 /hpf (0-2) H 08/20/22 21:15 Urine WBC 10-15 /hpf (0-5) H 08/20/22 21:15 Ur Squamous Epith Cells 0-4 /hpf (0-5) H 08/20/22 21:15 Calcium Oxalate Crystal 0-4 /hpf H 08/20/22 21:15 Amorphous Sediment Telegraphic Typewriter Operator 08/20/22 21:15 Urine Bacteria 1+ /hpf (NONE) H 08/20/22 21:15 Ur Random Urea Nitrogn 253 mg/dL 08/20/22 23:00 Urine Creatinine 210 mg/dL (39-259) 08/20/22 23:00 Coronavirus 229E (PCR) Not detected (NOT DETECT) 08/20/22 23:00 SARS-CoV-2 (PCR) Not detected (NOT DETECT) 08/20/22 23:00 Micro: Microbiology 08/20/22 23:00 MRSA Culture - Final Nose 08/20/22 23:00 Bacterial Antigens - Final Urine,Voided 08/20/22 23:00 Legionella Urinary Antigen - Final Urine Catheterized 08/20/22 18:25 Blood Culture - Preliminary Blood SPECIMEN COLLECTED 08/20/22 18:42 Blood Culture - Preliminary Blood SPECIMEN COLLECTED A&P Assessment and plan (1) Acute respiratory failure with hypoxia: (2) Hyperkalemia: (3) CHF (congestive heart failure): (4) EDWIN (acute kidney injury): (5) Sepsis: (6) Coronary artery disease: (7) History of type 2 diabetes mellitus: (8) COPD (chronic obstructive pulmonary disease): Qualifiers: COPD type: COPD with acute exacerbation Qualified Code(s): J44.1 - Chronic obstructive pulmonary disease with (acute) exacerbation (9) Atrial fibrillation: (10) Septic shock: Plan overall: 67-year-old male with significant past medical history of COPD, NATHALY on CPAP, morbid obesity, CKD, CAD, CHF, atrial fibrillation presented to emergency room for central chest pain relieved with nitroglycerin-admitted to ICU for close monitoring for developed hypotensive episodes as well as A-fib RVR, presumed sepsis secondary to pyelonephritis versus left lower lobe pneumonia, worsening renal function requiring hemodialysis NEURO: #Altered mental status-patient is legally blind-he is following commands for the most part and intermittently appears confused -I have known this patient in my clinic and mentation seems to me like his baseline at this point -Monitor mentation PULM: #Acute hypoxic respiratory failure -Patient has history of COPD and NATHALY on CPAP -Baseline home oxygen is 2 L at home -Currently requiring BiPAP with 50% FiO2 -Imaging suggestive of left lower lobe infiltrate suspicious for pneumonia-currently on vancomycin and Zosyn -With worsening renal functions and the intermittent A-fib and underlying CHF-I am concerned about patient getting fluid overloaded and probably going to respiratory failure -Monitor mentation and saturations-keep low threshold for intubation #COPD-currently does not appear to be in exacerbation -Recommended DuoNeb nebulization as needed CVS: #Intermittent A-fib RVR-currently rate controlled -Currently on metoprolol -He was on home Eliquis which was stopped secondary to GI bleed #Hypotensive episodes-likely from intermittent A-fib RVR versus septic shock secondary to pneumonia/pyelonephritis -Currently is not on any pressors GI: #Diet: N.p.o. #GI prophylaxis: PPI #LFTs within normal limits RENAL: #EDIWN on CKD likely secondary to pyelonephritis/ATN secondary to hypotensive episodes #Hyperkalemia resistant to medical management -Worsening renal function and urine output and potassium -Nephrology consulted and recommended hemodialysis -HD catheter placed and awaiting dialysis team to start hemodialysis -Monitor electrolytes, renal functions, urine output HEM: #Leukocytosis-secondary to possible UTI/pneumonia #Low H&H-suspect GI bleed-no active bleeding-monitor H&H -Platelets normal ENDO: #Moderately controlled sugars-nondiabetic and does not need insulin coverage ID: #CT evidence of suspected pyelonephritis #Chest imaging suspicious for left lower lobe infiltrates suspicious for pneumonia --MRSA nares negative -Legionella and other urine bacterial antigens are negative -Blood cultures are pending -Currently on vancomycin and Zosyn Code Status: Full Disposition: ICU Critically ill: Yes MD discussed with: Patient, hospitalist, RN, RT ICU CHECKLIST: Problem list updated Verbal orders reviewed and signed Analgesia: Opioid Glycemic Control: N/A Nutrition: N.p.o. Restraint Renewal (within 24 hrs): N/A Ulcer Prophylaxis: PPI Chemical Thromboprophylaxis: Prophylaxis: Heparin Mechanical Thromboprophylaxis: SCDs Need for Central line: N/A Need for Blake catheter: Yes for urine output monitoring Consult Attestations Medical Necessity Statement: A-fib RVR with intermittent hypotensive episodes, EDWIN with CKD requiring hemodialysis, worsening hypoxia requiring BiPAP-impending respiratory failure may require intubation-needs close ICU monitoring Time Spent in Patient Care: Greater than 35 minutes (>than 50% of time spent in counselling and/or direct pt care on unit). Critical Care Time: This patient has a high probability of clinically significant, sudden or life threatening deterioration of the patient's (pulmonary, renal, cardiac, hemodynamic) systems required my full, direct attention, the highest level of physician preparedness for urgent intervention and personal management. I managed/supervised life or organ supporting interventions that required frequent physician assessment. I devoted my full attention in the ICU to the direct care of this patient for the period of time indicated above. Time I spent with family or surrogate(s) is included only if the patient was incapable of providing necessary information or participating in decision making. This time includes the following services provided: Telemetry review Mechanical Ventilation Hemodynamic interpretation, assessment and management Review and interpretation of CXR Review and interpretation of lab values Review and interpretation of microbiologic data and culture results Review of medications and administration Review and interpretation of Nutrition requirements and management Discussion of management with other consultants and services Clinical update to family members [x] Data and vital sign review and interpretation [x] Patient assessment, examination and intervention [x] Documentation [x] Medication orders and management Time spent for teaching as well as performing procedures are billed separately and is not included in this note Coding Level of Care Code Critical Care >/= 30 minutes Diagnoses Acute respiratory failure with hypoxia J96.01 Hyperkalemia E87.5 CHF (congestive heart failure) I50.9 EDWIN (acute kidney injury) N17.9 Sepsis A41.9 Coronary artery disease I25.10 History of type 2 diabetes mellitus Z86.39 COPD (chronic obstructive pulmonary disease) J44.1 COPD type: COPD with acute exacerbation Atrial fibrillation I48.91 Septic shock A41.9; R65.21 Time Spent (min) 87
[2022-08-21 16:31] LABS: Basophils % 0.2 %; Hematocrit 31.1 % (42.0-52.0); Lymphocytes % 4.9 %; Mean Corpuscular HGB Conc 28.9 g/dL (30.0-36.0); Mean Corpuscular Hemoglobin 23.6 pg (28.0-34.0); Mean Corpuscular Volume 81.4 fl (80-94); Mean Platelet Volume 11.1 fL (7.4-10.4); Monocytes # 0.7 10^3/uL (0.2-0.9); Monocytes % 3.2 %; Neutrophils # 19.03 10^3/uL (1.8-7.7); Neutrophils % 91.4 %; Nucleated Red Blood Cells % 0 %; Platelet Count 430 10^3/cmm (130-400); Red Blood Count 3.82 10^6/uL (4.1-5.3); Red Cell Distribution Width 17.5 % (12.1-15.1); White Blood Count 20.8 10^3/uL (4.0-10.0)
[2022-08-21] MEDS: vancomycin 1,500 MG/300 ML PIGGYBACK 200 MG IV (16:36)
--- NOTE | 2022-08-21 16:44 | P.PCN_ITS ---
Procedure/Consent Time out: Time Out Performed: Yes Consent: Consent for Procedure: Consent obtained from other (indicate) Procedure Narrative: Procedure:Ultrasound guided? Nontunneled hemodialysis catheter - CPT CODE 06257 + CPT code 63630 Indication: Worsening renal failure requiring hemodialysis Time of the Procedure: 1600 Rn X Ray(s): Kehinde Segal MD [facility] Consent: Obtained from NOK and placed in chart Site: Right femoral vein Anesthesia: 5 cc 1% lidocaine without epinephrine Description: After doing timeout with patient's RN at bedside, the area of interest is prepped with chlorhexidine and draped in a sterile manner.? 1% lidocaine given for local anesthesia. Under ultrasound guidance? identified patent right internal jugular vein, confirmed with compressibility and location on the medial side of noncompressible and pulsatile right carotid artery.? An introducer needle was us ed with concurrent real-time ultrasound visualization of vascular needle entry. After desired vessel puncture, a guidewire is advanced through the needle, the needle is withdrawn.? Using guidewire as the guide, achieved adequate dilation using 2 sequential dilators followed by insertion of 12 [place] 16 cm hemodialysis catheter over guidewire into the desired vessel using Seldinger technique.? The guidewire is removed and all ports cole blood and were flushed with normal saline.? Caps were placed on the port, catheter was sutured in place, Biopatch applied at the catheter entry and dressed with sterile dressing. Ultrasound guidance used: Yes Placement confirmed by: Ultrasound Acute Procedures Epistaxis Control: Time out performed: Yes
--- NOTE | 2022-08-21 17:54 | PC.NURSE ---
scd not on pt at this time as doing dialysis cath right groin area with difficult acess and transfer to room ICU 10 to start diaylsis at this time . remains on bipap at this time some dyspnea . here and pt gave his wallet to her and daughter
[2022-08-21] MEDS: levalbuterol 0.63 mg/3 mL Neb INHALATION (20:01)
[2022-08-21] MEDS: dexmedetomidine 400 MCG in sodium chloride 0.9% (100 ml) 100 ML IV (20:14)
[2022-08-21 22:43] LABS: Hepatitis B Core AB, Total Non-Reactive (Nonreactive); Hepatitis B Surface AB 3.5 (11.5-1000); Hepatitis B Surface Antigen Non-Reactive (Nonreactive); Hepatitis C Virus Antibody Non-Reactive (Nonreactive)
[2022-08-22] VITALS (67 sets, daily range): BP systolic 88–151; BP diastolic 40–86; PULSE 71–119; RESP 12–27; TEMP 36.6; O2SAT 92–98; BMI 49.5
[2022-08-22 00:23] LABS: Anion Gap 16.2 (5-19); Blood Urea Nitrogen 42 mg/dL (8-23); Calcium 8.5 mg/dL (8.5-10.5); Carbon Dioxide 28 mmol/L (22-29); Chloride 95 mmol/L (98-107); Glomerular Filtration Rate 27.1 mL/min (90-130); Glucose 162 mg/dL (65-115); Osmolality Calculated 292 mOsm/kg (285-295); Potassium 5.2 mmol/L (3.5-5.1); Sodium 134 mmol/L (136-145)
--- NOTE | 2022-08-22 00:29 | P.CONIM_ITS ---
Providers/Reason For Consult Consulting Physician/Specialty*: [facility]/Nephrology Reason for Consult*: EDWIN Attending Physician: Moisés Landon MD Primary Care Provider: Lovely Ivey MD History of Present Illness History of Present Illness Artie Quiles is a 67 year old male with past medical history of COPD, CHF, normally on 2 L of oxygen, NATHALY, nightly on CPAP, atrial fibrillation on anticoagulation, morbid obesity, HTN, HLD presented to the emergency department with chest pain that has improved after nitroglycerin. Patient was also noted to be in A-fib with RVR along with hypotensive episodes in the ER. Chest x-ray showed cardiomegaly and findings consistent with pneumonia. Also noted to have pyelonephritis. patient creatinine baseline of 0.8 and creatinine worsened to 2.8 yesterday and has severe hyperkalemia despite medical management. Nephrology consultation requested for further management. continue treatment Medications/Allergies Home Medications Medication Instructions Recorded Confirmed Last Taken Type apixaban 5 mg tablet 5 mg PO BID 11/27/20 08/21/22 Unknown History aspirin 81 mg tablet,delayed 81 mg PO DAILY 11/27/20 08/21/22 Unknown History release (Adult Low Dose Aspirin) atorvastatin 80 mg tablet 40 mg PO DAILY 11/27/20 08/21/22 Unknown History cholecalciferol (vitamin D3) 50 50 mcg PO DAILY 11/27/20 08/21/22 Unknown History mcg (2,000 unit) capsule docusate sodium 100 mg capsule 100 mg PO BID PRN Constipation 11/27/20 08/21/22 Unknown History lisinopril 20 mg tablet 10 mg PO DAILY 11/27/20 08/21/22 Unknown History metformin 1,000 mg tablet 1,000 mg PO BID 11/27/20 08/21/22 Unknown History nitroglycerin 0.4 mg sublingual 0.4 mg sublingual Q5M PRN Chest 11/27/20 08/21/22 Unknown History tablet Pain omeprazole 20 mg capsule,delayed 20 mg PO DAILY 11/27/20 08/21/22 Unknown History release polyethylene glycol 3350 17 17 g PO DAILY PRN Constipation 11/27/20 08/21/22 Unknown History gram/dose oral powder pregabalin 150 mg capsule 150 mg PO BID 11/27/20 08/21/22 Unknown History inhalational spacing device (Allan #1 ea 05/20/21 08/21/22 Unknown Rx Aerosol [place] Enhancer spacer) multivitamin 1 tab PO DAILY 08/11/21 08/21/22 Unknown History metoprolol tartrate 50 mg tablet 50 mg PO BID #240 tabs 04/28/22 08/21/22 Unknown Rx guaifenesin 600 mg tablet, 600 mg PO Q12H PRN congestion #60 05/26/22 08/21/22 Unknown Rx extended release 12 hr (Mucinex) tabs albuterol sulfate 90 mcg/actuation 1 inh inhalation QID PRN shortness 06/17/22 08/21/22 Unknown Rx aerosol inhaler (Ventolin HFA) of breath or wheezing #8.5 grams budesonide-formoterol HFA 160 2 puff inhalation BID #10.2 grams 06/17/22 08/21/22 Unknown Rx mcg-4.5 mcg/actuation aerosol inhaler (Symbicort) ipratropium 0.5 mg-albuterol 3 mg 3 ml inhalation Q4H PRN wheezing 06/17/22 08/21/22 Unknown Rx (2.5 mg base)/3 mL nebulization #90 mL soln ipratropium bromide 0.02 % 2.5 ml inhalation Q6H PRN 06/17/22 08/21/22 Unknown History solution for inhalation Shortness Of Breath Or Wheezing tiotropium bromide 18 mcg capsule 1 cap inhalation DAILY #30 06/17/22 08/21/22 Unknown Rx with inhalation device (Spiriva inhalations with HandiHaler) nebulizer accessories #1 ea 06/18/22 08/21/22 Unknown Rx sodium chloride 3 % for 4 ml inhalation BID PRN congestion 06/18/22 08/21/22 Un known Rx nebulization #240 mL albuterol sulfate 2.5 mg/3 mL 2.5 mg inhalation Q4H PRN 08/21/22 08/21/22 Unknown History (0.083 %) solution for nebulization Shortness Of Breath Or Wheezing ascorbic acid (vitamin C) 500 mg 1,000 mg PO DAILY 08/21/22 08/21/22 Unknown History tablet (Vitamin C) diltiazem HCl 120 mg 120 mg PO DAILY 08/21/22 08/21/22 Unknown History tablet,extended release 24 hr ferrous gluconate 324 mg (38 mg 324 mg PO DAILY 08/21/22 08/21/22 Unknown His tory iron) tablet fluticasone propionate 50 1 spray intranasal DAILY 08/21/22 08/21/22 Unknown History mcg/actuation nasal spray,suspension furosemide 80 mg tablet 80 mg PO BID 08/21/22 08/21/22 Unknown History lidocaine 5 % topical ointment 1 applic topical DAILY PRN Pain 08/21/22 08/21/22 Unknown History loratadine 10 mg tablet 10 mg PO DAILY 08/21/22 08/21/22 Unknown History naloxone 4 mg/actuation nasal spray 4 mg intranasal Q3M PRN Opioid 08/21/22 08/21/22 Unknown History Overdose propranolol 80 mg tablet 40 mg PO TID 08/21/22 08/21/22 Unknown History tamsulosin 0.4 mg capsule 0.4 mg PO DAILY 08/21/22 08/21/22 Unknown History vit C 250 mg-vit E 90 mg-zinc 40 1 tab PO BID 08/21/22 08/21/22 Unknown History mg-copper 1 gs-pyklve-vrbdxk capsule (PreserVision AREDS-2) zinc gluconate 50 mg tablet 50 mg PO DAILY 08/21/22 08/21/22 Unknown History Allergies Allergy/AdvReac Type Severity Reaction Status Date / Time Iodinated Contrast Media Allergy Severe anaphylaxis Verified 08/21/22 09:44 Current Medications Generic Name Dose Route Start Last Admin Trade Name Freq PRN Reason Stop Dose Admin Aspirin 81 mg 08/21/22 09:00 08/21/22 08:15 Aspirin 81 Mg Ec Tablet PO 81 mg DAILY SHANTE Administration Budesonide 0.5 mg 08/21/22 09:00 08/21/22 20:01 Budesonide 0.5 Mg/2 Ml Neb INHALATION 0.5 mg BID.RESPIRATORY SHANTE Administration Piperacillin Sod/Tazobactam 50 mls @ 12.5 mls/hr 08/20/22 22:08 08/21/22 21:33 Sod 3.375 gm/ Sodium Chloride IV 12.5 mls/hr Q8H SHANTE Administration Protocol Dexmedetomidine HCl 400 mcg/ 104 mls @ 0 mls/hr 08/21/22 15:15 08/21/22 22:00 Sodium Chloride IV 0.3 mcg/kg/hr .Q0M SHANTE 12.49 mls/hr Titration Protocol Per Protocol Vancomycin/PEG/NADA/Lysine/Water 1,500 mg in 300 mls @ 200 mls/hr 08/21/22 16:00 08/21/22 17:57 Vancocin IV Infused Q24H SHANTE Infusion Norepinephrine Bitartrate 4 mg 254 mls @ 0 mls/hr 08/21/22 17:15 08/21/22 23:00 / Dextrose IV 4 mcg/min .Q0M SHANTE 15.24 mls/hr Titration Protocol Per Protocol Ipratropium [place] 0.5 mg 08/21/22 14:15 08/21/22 20:01 Ipratropium 0.5 Mg/2.5 Ml Neb INHALATION 0.5 mg Q6H SHANTE Administration Levalbuterol HCl 0.63 mg 08/21/22 20:00 08/21/22 20:01 Levalbuterol 0.63 Mg/3 Ml Neb INHALATION 0.63 mg Q6H.RESP SHANTE Administration Lidocaine 1 patch 08/20/22 22:08 08/21/22 21:33 Lidocaine 5% Patch TOPICAL 1 patch [id number] SHANTE Administration Metoprolol Tartrate 25 mg 08/21/22 06:30 08/21/22 21:33 Metoprolol Tartrate 25 Mg Tablet PO Not Given BID@0900,2100 SHANTE Ondansetron HCl 4 mg 08/20/22 22:08 08/20/22 23:21 Ondansetron 2 Mg/Ml Sdv 2 Ml IVP 4 mg Q8H PRN Administration vomiting, or N/V if npo Pantoprazole Sodium 40 mg 08/20/22 20:30 08/21/22 21:32 Pantoprazole 40 Mg Sdv IVP 40 mg Q12H SHANTE Administration Sodium Polystyrene Sulfonate 15 gm 08/21/22 14:15 08/21/22 21:32 Sodium Polystyrene Sulfonate 15 Gm/60 Ml Btl PO 15 gm Q6H SHANTE Administration Sucralfate 1 gm 08/21/22 07:45 08/21/22 21:32 Sucralfate 1 Gm Tablet PO 1 gm Q12H SHANTE Administration PFSH Acute PFSH: Medical History (Updated 08/21/22 @ 16:24 by Kehinde Segal MD) Atrial fibrillation CHF (congestive heart failure) COPD (chronic obstructive pulmonary disease) 2L Coronary artery disease History of type 2 diabetes mellitus Hyperlipidemia Hypertension Legally blind NATHALY (obstructive sleep apnea) Nightly CPAP Surgical History History of heart artery stent Social History Smoking and tobacco status: former smoker Quit status (tobacco): has quit using tobacco Year quit tobacco: August 2020 [id number] Second hand smoke exposure: Yes Smoking risk assessment/counseling performed?: Yes Alcohol intake: never Caregiver/support person: Yes Lives independently: Yes Household members: significant other Marital status: service: Yes Current occupational status: retired and disabled Pets and animals: Yes Current gender identity: Male Vitals/I&O/Wt Last Vital Signs Temp 98.6 F 08/21/22 21:03 Pulse 91 08/22/22 00:00 Resp 22 H 08/22/22 00:00 BP 114/60 08/22/22 00:00 Pulse Ox 94 08/22/22 00:00 O2 Del Method 08/21/22 20:00 O2 Flow Rate 60 08/21/22 15:13 FiO2 60 08/22/22 00:00 08/21/22 08/21/22 08/22/22 14:59 22:59 06:59 Intake Total 890.1 / 890.1 847.634 / 1737.734 20.955 / 1758.689 Output Total 4750 / 4750 Balance 890.1 / 890.1 -3902.366 / -3012.266 20.955 / -2991.311 Weight last 48 hrs Weight 157.5 kg Weight 160.118 kg Weight 160.118 kg Weight 163.293 kg Physical Exam Urinary Catheter Management: Blake: Cath Placed During This Visit: yes Reason for Continuing Indwelling Catheter: Accurate Measurement of Urinary Output in Critically Ill Patients Urinary Catheter Date of Insertion: 08/20/22 Urinary Catheter Time of Insertion: 21:16 Data 08/21/22 16:20 08/22/22 00:01 Micro: Microbiology 08/20/22 18:42 Blood Culture - Preliminary Blood NEGATIVE TO DATE 08/20/22 18:25 Blood Culture - Preliminary Blood NEGATIVE TO DATE 08/20/22 23:00 MRSA Culture - Final Nose 08/20/22 23:00 Bacterial Antigens - Final Urine,Voided 08/20/22 23:00 Legionella Urinary Antigen - Final Urine Catheterized A&P Assessment and plan (1) EDWIN (acute kidney injury): Plan #1 acute kidney injury: Secondary to ATN from sepsis likely but patient has severe hyperkalemia despite medical management. Would benefit from dialysis temporarily. Requested line placement and start HD. #2 hyperkalemia: HD as above, low potassium diet #3 pyelonephritis: Antibiotics per primary team #4 acute respiratory failure: Multifactorial, antibiotics per primary team. Patient evaluated using audiovisual cart. Time spent 40 minutes Consult Attestations Medical Necessity Statement: A-fib RVR with intermittent hypotensive episodes, EDWIN with CKD requiring hemodialysis, worsening hypoxia requiring BiPAP-impending respiratory failure may require intubation-needs close ICU monitoring Coding Level of Care Code Acute Code for Chg Fwd Diagnoses EDWIN (acute kidney injury) N17.9
[2022-08-22] MEDS: ipratropium 0.5 mg/2.5 mL Neb INHALATION ×3 (02:28→14:34)
[2022-08-22] MEDS: levalbuterol 0.63 mg/3 mL Neb INHALATION ×4 (02:28→19:20)
[2022-08-22] MEDS: dexmedetomidine 400 MCG in sodium chloride 0.9% (100 ml) 100 ML 20.82 MCG IV (03:13)
[2022-08-22 04:13] LABS: ABG PCO2 54.7 mmHg (35-45); ABG PH Result 7.34 (7.35-7.45); Arterial Blood Gas Hematocrit 31.6 % (42-52); Blood Gas Sample Site Brachial, right; Blood Gas Sample Type Arterial; HCO3 ABG 29.6 mmol/L (22-26); Oxygen Device BIPAP; PO2 ABG 92.9 mmHg (80.0-100.0)
[2022-08-22] MEDS: piperacillin-tazobactam 3.375 GM in sodium chloride 0.9% (plus) 50 ML IV ×3 (05:44→21:12)
--- NOTE | 2022-08-22 06:00 | USCV_ITS ---
Artie Quiles Age: 67 Gender: M : 1955 Exam Date: 08/22/2022 12:18 Ordering Phys: Moisés Landon MD Technologist: FARSHAD Exam Location: [facility] [place] Indication: SOB BP: / HR: 81 Rhythm: Sinus Technical Quality: Adequate MEASUREMENTS (Male / Female) Normal Values 2D ECHO LV Diastolic Diameter PLAX 7.4 cm 4.2 - 5.9 / 3.9 - 5.3 cm LV Systolic Diameter PLAX 5.1 cm IVS Diastolic Thickness 0.9 cm 0.6 - 1.0 / 0.6 - 0.9 cm IVS Systolic Thickness 1.3 cm LVPW Diastolic Thickness 0.8 cm 0.6 - 1.0 / 0.6 - 0.9 cm LVPW Systolic Thickness 1.1 cm LVOT Diameter 2.2 cm LV Ejection Fraction 2D Teich 56.0 % LV Ejection Fraction MOD 2C 67.1 % LV Ejection Fraction 2C AL 68.1 % LA Diameter 4.9 cm IVC Diameter 2.8 cm M-MODE Aortic Annulus Diameter 2.8 cm LA Ao Ratio MM 1.8 MV E Point Septal Separation 0.7 cm DOPPLER AV Peak Velocity 153.0 cm/s LVOT Peak Velocity 100.0 cm/s AV Area Cont Eq vti 2.4 cm squared AV Area Cont Eq pk 2.5 cm squared MV Area PHT 4.0 cm squared Mitral E to A Ratio 1.9 MV E' Velocity 64.0 cm/s Mitral E to MV E' Ratio 10.4 Mitral E to LV E' Lateral Ratio 10.4 Mitral E to LV E' Septal Ratio 10.5 TR Peak Velocity 222.7 cm/s TR Peak Gradient 19.8 mmHg TV Peak E Velocity 86.0 cm/s Right Atrial Pressure 3.0 mmHg Pulmonary Artery Systolic Pressu 22.8 mmHg PV Peak Velocity 98.0 cm/s FINDINGS Left Ventricle Left ventricle is normal in size. LV systolic function is grossly normal. Regional wall motion abnormalities can not be accurately assessed because of poor ultrasonic windows. Right Ventricle Normal in size and function Right Atrium Normal in size Left Atrium Dilated Mitral Valve Structurally normal mitral valve. Mild mitral regurgitation. Aortic Valve Aortic valve is thickened. No significant stenosis. Tricuspid Valve Mild tricuspid regurgitation. Pulmonary artery systolic pressure is normal Pulmonic Valve Not well visualized. Trace pulmonic regurgitation. Pericardium Normal Aorta Normal in size. IVC Appears to be normal CONCLUSIONS Technically limited quality echocardiogram because of poor ultrasonic windows. LV systolic function is grossly normal Left atrial dilation Mild mitral regurgitation Mild tricuspid regurgitation Trace pulmonic regurgitation Comparison with prior echocardiogram from04/2021, shows no significant changes. Juan J Parisi MD (Electronically Signed) Final Date: 23 August 2022 11:24 S
[2022-08-22 06:32] LABS: INR 1.03 (0.8-1.2)
--- NOTE | 2022-08-22 07:00 | XRR_ITS ---
PROCEDURE INFORMATION: Exam: XR Chest Exam date and time: 08/22/2022 7:54 AM Age: 67 years old Clinical indication: Shortness of breath; Additional info: SOB TECHNIQUE: Imaging protocol: Radiologic exam of the chest. Views: 1 view. COMPARISON: CR XR chest 1V portable [id number] 08/21/2022 3:39 PM FINDINGS: Lungs: There is platelike opacity in the right lung base, similar to the findings yesterday. Opacity in the left lung base visible yesterday is now obscured. Pleural spaces: The left lateral costophrenic sulcus is blunted. No pneumothorax. Heart/Mediastinum: There is moderate enlargement of the cardiac silhouette. The heart is partially obscured. Bones/joints: Bones are unremarkable. XR/XR chest 1V portable [id number] IMPRESSION: 1. Left lung base is obscured. Possible increasing atelectasis or consolidation and/or pleural fluid versus differences in radiographic projection. 2. Persistent mild opacity in the right lung base suggesting atelectasis.
[2022-08-22] MEDS: budesonide 0.5 mg/2 mL Neb INHALATION ×2 (07:47→19:19)
[2022-08-22] MEDS: sodium polystyrene sulfonate 15 gm/60 mL Btl PO ×2 (08:41→15:38)
[2022-08-22] MEDS: sucralfate 1 gm Tablet PO ×2 (08:42→20:24)
[2022-08-22] MEDS: aspirin 81 mg EC Tablet PO (08:42)
[2022-08-22] MEDS: pantoprazole 40 mg SDV IVP ×2 (08:42→20:24)
[2022-08-22] MEDS: lidocaine 5% Patch 1 PATCH TOPICAL (09:22)
[2022-08-22] MEDS: metoprolol tartrate 25 mg Tablet PO ×2 (09:23→21:12)
--- NOTE | 2022-08-22 10:39 | PC.NURSE ---
up in bed remains on high flow at this time .. monitor vs able to tolerate po fluids and meds
--- NOTE | 2022-08-22 14:14 | P.PN_ITS ---
Subjective Subjective: -Patient seen at bedside -On BiPAP patient is requiring FiO2 60%-switch to high flow nasal cannula 60 L 100% -Mentation is intact and can have meaningful conversation -Yesterday underwent hemodialysis and 3 L of fluid was removed -Other labs and imaging reviewed Medications: Reviewed: Yes Vitals/I&O/Wt Last Vital Signs Temp 98 F 08/22/22 08:30 Pulse 79 08/22/22 12:00 Resp 21 H 08/22/22 12:00 BP 121/66 08/22/22 12:00 Pulse Ox 96 08/22/22 12:00 O2 Del Method 08/22/22 07:48 O2 Flow Rate 60 08/22/22 11:52 FiO2 60 08/22/22 12:00 08/21/22 08/22/22 08/22/22 22:59 06:59 14:59 Intake Total 847.634 / 1737.734 529.154 / 2266.888 654.000 / 654.000 Output Total 4750 / 4750 550 / 5300 Balance -3902.366 / -3012.266 -20.846 / -3033.112 654.000 / 654.000 Weight last 48 hrs Weight 345 lb 0.375 oz Weight 347 lb 3.649 oz Weight 353 lb Weight 353 lb Weight 360 lb Physical Exam Narrative: General: Morbidly obese, alert and following commands-confused at times HEENT: conj clear, legally blind, PERRL, mmm, Neck: supple, no meningismus Heme: no cervical LAP Respiratory: Inspection: No visible deformity of the chest wall Palpation: Trachea is mildly deviated to the right, bilateral symmetric expansion Percussion: Bilateral tympanic percussion note both anterior and posteriorly Auscultation: Bilateral clear to auscultation both anterior and posteriorly, no crackles wheezing or rhonchi Cardiovascular: rrr, nl s1s2, no mrg Abdomen: soft, nt, nd, no r/g, bs+ Extremities: pulses +, 1+ pedal edema, no c/c : no CVA tenderness Skin: intact, no rash MSK: no back or neck pain Neurologic: grossly intact Urinary Catheter Management: Blake: Cath Placed During This Visit: yes Reason for Continuing Indwelling Catheter: Accurate Measurement of Urinary Output in Critically Ill Patients Urinary Catheter Date of Insertion: 08/20/22 Urinary Catheter Time of Insertion: 21:16 Data 08/21/22 16:20 08/22/22 00:01 Other Labs: Radiology Impressions Chest/Abdomen/Pelvis CT 08/20/22 18:13 IMPRESSION: 1. Bilateral dependent atelectasis versus infiltrate. 2. Several chronic posterior left rib fractures. 3. Scattered enlarged mediastinal lymph nodes measuring up to 15 mm, similar to prior exam, nonspecific. 4. Cardiomegaly. 5. Trace pericardial effusion. 6. Coronary artery atherosclerotic calcifications. IMPRESSION: 1. Mildly prominent fluid in the small bowel without dilation may reflect an enteritis. 2. Several hepatic cysts. 3. Left kidney punctate nonobstructing renal calyceal stone. 4. Perinephric edema likely reflecting renal insufficiency, please correlate for possible pyelonephritis. 5. Umbilical hernia containing omentum without bowel. 6. Left kidney exophytic 14 mm probable cyst, appears somewhat hyperdense, further evaluation with nonemergent renal ultrasound advised to evaluate for suspected cystic versus potentially solid nature. Venous Duplex 08/21/22 14:54 IMPRESSION: No evidence of deep vein thrombosis. Chest X-Ray 08/22/22 07:00 IMPRESSION: 1. Left lung base is obscured. Possible increasing atelectasis or consolidation and/or pleural fluid versus differences in radiographic projection. 2. Persistent mild opacity in the right lung base suggesting atelectasis. Laboratory Results WBC Cancelled 08/22/22 05:33 Corrected WBC Cancelled 08/22/22 05:33 RBC Cancelled 08/22/22 05:33 Hgb Cancelled 08/22/22 05:33 Hct Cancelled 08/22/22 05:33 MCV Cancelled 08/22/22 05:33 MCH Cancelled 08/22/22 05:33 MCHC Cancelled 08/22/22 05:33 RDW Cancelled 08/22/22 05:33 Plt Count Cancelled 08/22/22 05:33 MPV Cancelled 08/22/22 05:33 Gran % Cancelled 08/22/22 05:33 Neut % (Auto) Cancelled 08/22/22 05:33 Lymph % (Auto) Cancelled 08/22/22 05:33 Refugio % (Auto) Cancelled 08/22/22 05:33 Eos % (Auto) Cancelled 08/22/22 05:33 Baso % (Auto) Cancelled 08/22/22 05:33 Neut # (Auto) Cancelled 08/22/22 05:33 Lymph # (Auto) Cancelled 08/22/22 05:33 Refugio # (Auto) Cancelled 08/22/22 05:33 Eos # (Auto) Cancelled 08/22/22 05:33 Baso # (Auto) Cancelled 08/22/22 05:33 Absolute Gran (auto) Cancelled 08/22/22 05:33 Nucleated RBC % (auto) Cancelled 08/22/22 05:33 Nucleated RBCs # Cancelled 08/22/22 05:33 PT 13.80 SECONDS (12.1-14.9) 08/22/22 05:33 INR 1.03 (0.8-1.2) 08/22/22 05:33 Specimen Type Arterial 08/22/22 04:00 Sample Site Brachial, right 08/22/22 04:00 ABG pH 7.34 (7.35-7.45) L 08/22/22 04:00 ABG pCO2 54.7 mmHg (35-45) H 08/22/22 04:00 ABG pO2 92.9 mmHg (80.0-100.0) 08/22/22 04:00 ABG HCO3 29.6 mmol/L (22-26) H 08/22/22 04:00 ABG O2 Saturation 93.3 08/21/22 13:57 ABG Base Excess 3.0 mmol/L (-2.0-2.0) H 08/22/22 04:00 [place] Test N/a 08/22/22 04:00 A-a O2 Gradient 28.5 mmHg (5-10) H 08/21/22 13:57 Hematocrit 31.6 % (42-52) L 08/22/22 04:00 Hgb O2 Saturation 91.6 % (95-100) L 08/21/22 13:57 Carboxyhemoglobin 1.4 %THgb (0.4-20.1) 08/21/22 13:57 Methemoglobin 0.4 % (0.4-1.5) 08/21/22 13:57 Total Hemoglobin 9.5 g/dL (14-18) L 08/21/22 13:57 Sodium 137.0 mmol/L (131-143) 08/21/22 13:57 Potassium 6.7 mmol/L (3.5-5.0) H 08/21/22 13:57 Glucose 152.0 mg/dL (70-115) H 08/21/22 13:57 Ionized Calcium 1.1 mmol/L (1.1-1.4) 08/21/22 13:57 O2 Delivery Device Bipap 08/22/22 04:00 O2 Liters/Min 2.0 % 08/20/22 19:48 FiO2 60.0 % 08/22/22 04:00 Print Support Specialist ID Alewe 08/22/22 04:00 Sodium Cancelled 08/22/22 05:33 Potassium Cancelled 08/22/22 05:33 Chloride Cancelled 08/22/22 05:33 Carbon Dioxide Cancelled 08/22/22 05:33 Anion Gap Cancelled 08/22/22 05:33 BUN Cancelled 08/22/22 05:33 Creatinine Cancelled 08/22/22 05:33 GFR Calculation Cancelled 08/22/22 05:33 Glucose Cancelled 08/22/22 05:33 Calculated Osmolality Cancelled 08/22/22 05:33 Lactate 1.0 mmol/L (0.5-2.2) 08/22/22 05:33 Calcium Cancelled 08/22/22 05:33 Phosphorus Cancelled 08/22/22 05:33 Magnesium Cancelled 08/22/22 05:33 Iron 11 ug/dL (59-158) L 08/21/22 10:05 TIBC 265 mcg/dl 08/21/22 10:05 % Saturation 4.1 % (20-50) L 08/21/22 10:05 Unsat Iron Binding 254 ug/dL (112-347) 08/21/22 10:05 Ferritin 16 ng/mL (30-400) L 08/21/22 10:05 Total Bilirubin Cancelled 08/22/22 05:33 AST Cancelled 08/22/22 05:33 ALT Cancelled 08/22/22 05:33 Alkaline Phosphatase Cancelled 08/22/22 05:33 Creatine Kinase 57 U/L (39-308) 08/21/22 10:05 Troponin T Baseline 92 ng/L (0-15) H 08/20/22 16:33 Troponin T 120 Minute 84.64 ng/L (0-15) H 08/20/22 18:25 Delta Troponin T -7.36 ABS# (0-10) L 08/20/22 18:25 Troponin T Hi Sens 6Hr 75.47 ng/L (0-15) H 08/20/22 22:32 Troponin T Hi Sens 6Hr Delta -16.53 ng/L (0-12) L 08/20/22 22:32 C-Reactive Protein Cancelled 08/22/22 05:33 NT-Pro-B Natriuret Pep 343 pg/mL (0-125) H 08/20/22 16:33 Total Protein Cancelled 08/22/22 05:33 Albumin Cancelled 08/22/22 05:33 Globulin Cancelled 08/22/22 05:33 Lipase 25 U/L (13-60) 08/20/22 16:33 TSH 2.01 uIU/mL (0.27-4.20) 08/21/22 04:54 Urine Color Yellow (Yellow) 08/20/22 21:15 Urine Appearance Clear (CLEAR) 08/20/22 21:15 Urine pH 5 (5-7) 08/20/22 21:15 Ur Specific [place]field 1.025 (1.005-1.030) 08/20/22 21:15 Urine Protein Trace (Negative) 08/20/22 21:15 Urine Glucose (UA) Norm (Normal) 08/20/22 21:15 Urine Ketones 1+ (Negative) H 08/20/22 21:15 Urine Blood Neg (Negative) 08/20/22 21:15 Urine Nitrate Negative (Negative) 08/20/22 21:15 Urine Bilirubin Neg (Negative) 08/20/22 21:15 Urine Urobilinogen 1 mg/dL (Negative) H 08/20/22 21:15 Ur Leukocyte Esterase Trace (Negative) H 08/20/22 21:15 Urine RBC 0-4 /hpf (0-2) H 08/20/22 21:15 Urine WBC 10-15 /hpf (0-5) H 08/20/22 21:15 Ur Squamous Epith Cells 0-4 /hpf (0-5) H 08/20/22 21:15 Calcium Oxalate Crystal 0-4 /hpf H 08/20/22 21:15 Amorphous Sediment Spinner Open End 08/20/22 21:15 Urine Bacteria 1+ /hpf (NONE) H 08/20/22 21:15 Ur Random Urea Nitrogn 253 mg/dL 08/20/22 23:00 Urine Creatinine 210 mg/dL (39-259) 08/20/22 23:00 Coronavirus 229E (PCR) Not detected (NOT DETECT) 08/20/22 23:00 Hep Bs Antigen Non-reactive (Nonreactive) 08/21/22 18:46 Hep Bs Antibody 3.5 (11.5-1000) L 08/21/22 18:46 Hep B Core Total Ab Non-reactive (Nonreactive) 08/21/22 18:46 Hepatitis C Antibody Non-reactive (Nonreactive) 08/21/22 18:46 SARS-CoV-2 (PCR) Not detected (NOT DETECT) 08/20/22 23:00 Micro: Microbiology 08/20/22 18:42 Blood Culture - Preliminary Blood NEGATIVE TO DATE 08/20/22 18:25 Blood Culture - Preliminary Blood NEGATIVE TO DATE 08/20/22 23:00 MRSA Culture - Final Nose 08/20/22 23:00 Bacterial Antigens - Final Urine,Voided A&P Assessment and plan (1) Acute respiratory failure with hypoxia: (2) Hyperkalemia: (3) CHF (congestive heart failure): (4) EDWIN (acute kidney injury): (5) Sepsis: (6) Coronary artery disease: (7) History of type 2 diabetes mellitus: (8) COPD (chronic obstructive pulmonary disease): Qualifiers: COPD type: COPD with acute exacerbation Qualified Code(s): J44.1 - Chronic obstructive pulmonary disease with (acute) exacerbation (9) Atrial fibrillation: (10) Septic shock: Plan overall: 67-year-old male with significant past medical history of COPD, NATHALY on CPAP, morbid obesity, CKD, CAD, CHF, atrial fibrillation presented to emergency room for central chest pain relieved with nitroglycerin-admitted to ICU for close monitoring for developed hypotensive episodes as well as A-fib RVR, presumed sepsis secondary to pyelonephritis versus left lower lobe pneumonia, worsening renal function requiring hemodialysis NEURO: #Altered mental status-patient is legally blind-he is following commands for the most part and intermittently appears confused -I have known this patient in my clinic and mentation seems to me like his baseline at this point -Monitor mentation PULM: #Acute hypoxic respiratory failure -Patient has history of COPD and NATHALY on CPAP -Baseline home oxygen is 2 L at home -Currently requiring BiPAP with 60% FiO2 -Imaging suggestive of left lower lobe infiltrate suspicious for pneumonia- currently on vancomycin and Zosyn -With worsening renal functions and the intermittent A-fib and underlying CHF-I am concerned about patient getting fluid overloaded and probably going to respiratory failure -Monitor mentation and saturations-keep low threshold for intubation #COPD-currently does not appear to be in exacerbation -Recommended DuoNeb nebulization as needed CVS: #Intermittent A-fib RVR-currently rate controlled -Currently on metoprolol -He was on home Eliquis which was stopped secondary to GI bleed #Hypotensive episodes-likely from intermittent A-fib RVR versus septic shock secondary to pneumonia/pyelonephritis -Currently is not on any pressors GI: #Diet: soft diet with aspiration precautions . #GI prophylaxis: PPI #LFTs within normal limits RENAL: #EDWIN on CKD likely secondary to pyelonephritis/ATN secondary to hypotensive episodes #Hyperkalemia resistant to medical management - had HD and today 5.2 -Worsening renal function and urine output and potassium -Nephrology on board and pt receiving hemodialysis -Monitor electrolytes, renal functions, urine output HEM: #Leukocytosis-secondary to possible UTI/pneumonia #Low H&H-suspect GI bleed-no active bleeding-monitor H&H -Platelets normal ENDO: #Moderately controlled sugars-nondiabetic and does not need insulin coverage ID: #CT evidence of suspected pyelonephritis #Chest imaging suspicious for left lower lobe infiltrates suspicious for pneumonia --MRSA nares negative -Legionella and other urine bacterial antigens are negative -Blood cultures are pending -Currently on vancomycin and Zosyn Code Status: Full Disposition: ICU Critically ill: Yes MD discussed with: Patient, hospitalist, RN, RT ICU CHECKLIST: Problem list updated Verbal orders reviewed and signed Analgesia: Opioid Glycemic Control: N/A Nutrition: N.p.o. Restraint Renewal (within 24 hrs): N/A Ulcer Prophylaxis: PPI Chemical Thromboprophylaxis: Prophylaxis: Heparin Mechanical Thromboprophylaxis: SCDs Need for Central line: N/A Need for Blake catheter: Yes for urine output monitoring Attestations Medical Necessity Statement*: A-fib RVR with intermittent hypotensive episodes, EDWIN with CKD requiring hemodialysis, worsening hypoxia requiring BiPAP-impending respiratory failure may require intubation-needs close ICU monitoring Time Spent in Patient Care: Greater than 35 minutes (>than 50% of time spent in counselling and/or direct pt care on unit) . Critical Care Time: This patient has a high probability of? clinically significant, sudden or life threatening deterioration of the patient's (pulmonary, renal, cardiac, hemodynamic) systems required my full, direct attention, the highest level of physician preparedness for urgent intervention and personal management.? I managed/supervised life or organ supporting interventions that required frequent physician assessment.? I devoted my full attention in the ICU to the direct care of this patient for the period of time indicated above.? Time I spent with family or surrogate(s) is included only if the patient was incapable of providing necessary information or participating in decision making.? This time includes the following services provided: Telemetry review Mechanical Ventilation Hemodynamic interpretation, assessment and management Review and interpretation of CXR Review and interpretation of lab values Review and interpretation of microbiologic data and culture results Review of medications and administration Review and interpretation of Nutrition requirements and management Discussion of management with other consultants and services Clinical update to family members [x] Data and vital sign review and interpretation [x] Patient assessment, examination and intervention [x] Documentation [x] Medication orders and management Time spent for teaching as well as performing procedures are billed separately and is not included in this note ? Critical Care Time (min): 55 Coding Level of Care Code Critical Care >/= 30 minutes Diagnoses Acute respiratory failure with hypoxia J96.01 Hyperkalemia E87.5 CHF (congestive heart failure) I50.9 EDWIN (acute kidney injury) N17.9 Sepsis A41.9 Coronary artery disease I25.10 History of type 2 diabetes mellitus Z86.39 COPD (chronic obstructive pulmonary disease) J44.1 COPD type: COPD with acute exacerbation Atrial fibrillation I48.91 Septic shock A41.9; R65.21 Time Spent (min) 55
[2022-08-22] MEDS: vancomycin 1,500 MG/300 ML PIGGYBACK 200 MG IV (15:38)
--- NOTE | 2022-08-22 16:44 | P.PN_ITS ---
Subjective Subjective: Patient was seen this morning, he tells me he is feeling a lot better, no fevers, no chills, he received dialysis yesterday, Vitals/I&O/Wt Last Vital Signs Temp 98 F 08/22/22 08:30 Pulse 93 08/22/22 14:46 Resp 18 08/22/22 14:46 BP 121/66 08/22/22 12:00 Pulse Ox 95 08/22/22 14:46 O2 Del Method 08/22/22 14:15 O2 Flow Rate 60 08/22/22 14:46 FiO2 80 08/22/22 14:46 08/22/22 08/22/22 08/22/22 06:59 14:59 22:59 Intake Total 529.154 / 2266.888 654.000 / 654.000 Output Total 550 / 5300 Balance -20.846 / -3033.112 654.000 / 654.000 Weight last 48 hrs Weight 156.5 kg Weight 157.5 kg Weight 160.118 kg Weight 160.118 kg Physical Exam Const: COMMON NORMALS: no acute distress and patient oriented x3 Resp: COMMON NORMALS: normal respiratory effort, No retractions, No use of accessory muscles and clear to auscultation bilaterally AUSCULTATION: clear to auscultation bilaterally Cardio: COMMON NORMALS: regular rate, regular rhythm, S1 normal heart sound present and S2 normal heart sound present RATE: regular rate RHYTHM: regular rhythm HEART SOUNDS: S1 normal heart sound present and S2 normal heart sound present GI: COMMON NORMALS: Normal to inspection, nondistended, normoactive bowel sounds present and non-tender Extremity: NARRATIVE EXTREMITY EXAM: 1+ pitting edema Neuro: COMMON NORMALS: patient oriented x3 Psych: COMMON NORMALS: mental status grossly normal Urinary Catheter Management: Blake: Cath Placed During This Visit: yes Reason for Continuing Indwelling Catheter: Accurate Measurement of Urinary Outp ut in Critically Ill Patients Urinary Catheter Date of Insertion: 08/20/22 Urinary Catheter Time of Insertion: 21:16 Data 08/21/22 16:20 08/22/22 00:01 Micro: Microbiology 08/20/22 18:42 Blood Culture - Preliminary Blood NEGATIVE TO DATE 08/20/22 18:25 Blood Culture - Preliminary Blood NEGATIVE TO DATE 08/20/22 23:00 MRSA Culture - Final Nose A&P Assessment and plan (1) Chest pain: (2) Sepsis: (3) EDWIN (acute kidney injury): (4) Hyperkalemia: (5) Pneumonia: (6) Abnormal CT scan, kidney: (7) Acute anemia: (8) Kidney lesion: (9) Rib fractures: Chronic fractures. Lidocaine patch. Incentive spirometry. Consider postdischarge assessment for osteoporosis. (10) NSTEMI (non-ST elevated myocardial infarction): (11) Hyperkalemia: (12) Acute respiratory failure with hypoxia: (13) GI bleed: (14) Acute encephalopathy: Plan Acute hypoxic hypercarbic respiratory failure -Likely multifactorial -From pneumonia -From COPD exacerbation -Now for fluid overload, given acute renal failure Plan -Continue BiPAP -Low threshold for intubation -Broad-spectrum antibiotic therapy vancomycin, Zosyn -Receiving dialysis for fluid overload, 3 L off yesterday, hopefully will receive another round of dialysis today -Fluid restrictions -Full code -SCDs for DVT prophylaxis, anticoagulation relatively contraindicated given his anemia, concerns for GI bleed Acute renal failure -Likely secondary to hypotensive episode in the emergency room -Likely secondary to sepsis -Possibly related to NSAID use -Urine output, 1 L -Nephrology consulted -Will be dialyzed Sepsis related to pneumonia, UTI, with acute renal failure, with acute encephalopathy Pneumonia -Antibiotics as above -Sputum cultures, blood cultures UTI with evidence of radiographic evidence of pyelonephritis -Continue broad-spectrum aerobic therapy -Monitor urine output -Monitor for fevers Acute encephalopathy -Improving -Likely secondary to sepsis -Likely secondary to uremia -Neurochecks, aspiration precautions -Precedex drip for agitation Acute hyperkalemia -Resolved -Likely secondary to acute renal failure -Has failed 2 rounds of insulin/D50/calcium gluconate/Kayexalate -Received dialysis improved to 5.2, will be dialyzed again today -Continue telemetry monitoring Acute anemia Concerns for slow GI bleed/with evidence of iron deficiency anemia -Also some, related to renal failure -Hemoglobin pending -Patient has evidence of iron deficiency anemia, low iron, low ferritin -He was supposed to have a colonoscopy at [facility] but it could not be done in time -Hold antiplatelet and anticoagulant therapy -Continue Protonix, Carafate -Monitor hemoglobin Acute chest pain -Likely secondary to hyperkalemia -However cannot rule out underlying cardiac etiology -Serial EKGs serial troponins telemetry monitoring Trace pericardial effusion Scattered enlarged mediastinal lymph nodes measuring up to 15 mm,similar to prior exam, nonspecific. A-fib with RVR: Blood pressure soft and with EDWIN, decrease metoprolol to 12.5 mg twice daily for now. Monitor heart rate, blood pressures. Legally blind, COPD, normally on 2 L of oxygen. CHF, noted cardiomegaly. Looks fluid overloaded on chest x-ray, concerns for pulm edema worsening respiratory failure, will receive dialysis, NATHALY, nightly CPAP, currently on BiPAP history of CAD, takes a daily aspirin, atrial fibrillation on anticoagulation, hold Eliquis for now with acute anemia. morbid obesity, HTN, HLD Spoke to pulmonary, spoke to nephrology, spoke to nursing staff Attestations Medical Necessity Statement*: Patient requires a position for fluid overload, pneumonia, acute renal failure, hyperkalemia, requiring dialysis, requiring BiPAP therapy, Coding Level of Care Code Critical Care >/= 30 minutes Critical care time (in minutes): 40 The high probability of a clinically significant, sudden or life threatening deterioration, as referenced in this documentation, required my full and direct attention, intervention and personal management. The critical care time shown is in addition to time spent performing any reported separately billable procedures and includes the following: [x] Data and vital sign review and interpretation [x ] Patient assessment, examination and intervention [x] Medication orders and management [x] Patient/Family updates as able [x] Care Coordination and Documentation. Diagnoses Chest pain R07.9 Sepsis A41.9 EDWIN (acute kidney injury) N17.9 Hyperkalemia E87.[address] scan, kidney R93.429 Acute anemia D64.9 Kidney lesion N28.9 Rib fractures S22.49XA NSTEMI (non-ST elevated myocardial infarction) I21.4 Hyperkalemia E87.5 Acute respiratory failure with hypoxia J96.01 GI bleed K92.2 Acute encephalopathy G93.40
[2022-08-22 18:00] LABS: Basophils % 0.2 %; Hematocrit 33.1 % (42.0-52.0); Hemoglobin 9.5 g/dL (11.7-16.6); Lymphocytes # 1.3 10^3/uL (0.8-4.8); Lymphocytes % 6.8 %; Mean Corpuscular HGB Conc 28.7 g/dL (30.0-36.0); Mean Corpuscular Hemoglobin 23.7 pg (28.0-34.0); Mean Corpuscular Volume 82.5 fl (80-94); Mean Platelet Volume 11.3 fL (7.4-10.4); Monocytes # 1.2 10^3/uL (0.2-0.9); Monocytes % 6.3 %; Neutrophils # 16.09 10^3/uL (1.8-7.7); Neutrophils % 86.2 %; Nucleated Red Blood Cells % 0.1 %; Platelet Count 410 10^3/cmm (130-400); Red Blood Count 4.01 10^6/uL (4.1-5.3); Red Cell Distribution Width 17.8 % (12.1-15.1); White Blood Count 18.7 10^3/uL (4.0-10.0)
[2022-08-22] MEDS: ipratropium-albuterol 3 mL Neb INHALATION (19:20)
--- NOTE | 2022-08-22 19:30 | PM.PN ---
Subjective Subjective: on high flow O2 Medications: Reviewed: Yes Vitals/I&O/Wt Last Vital Signs Temp 98 F 08/22/22 08:30 Pulse 114 H 08/22/22 19:20 Resp 20 H 08/22/22 19:20 BP 123/68 08/22/22 18:00 Pulse Ox 93 08/22/22 19:20 O2 Del Method 08/22/22 19:20 O2 Flow Rate 60 08/22/22 19:20 FiO2 80 08/22/22 19:20 08/22/22 08/22/22 08/22/22 06:59 14:59 22:59 Intake Total 529.154 / 2266.888 654.000 / 654.000 613.169 / 1267.169 Output Total 550 / 5300 200 / 200 Balance -20.846 / -3033.112 654.000 / 654.000 413.169 / 1067.169 Weight last 48 hrs Weight 156.5 kg Weight 157.5 kg Weight 160.118 kg Weight 160.118 kg Physical Exam Urinary Catheter Management: Blake: Cath Placed During This Visit: yes Reason for Continuing Indwelling Catheter: Accurate Measurement of Urinary Output in Critically Ill Patients Urinary Catheter Date of Insertion: 08/20/22 Urinary Catheter Time of Insertion: 21:16 Data 08/22/22 17:25 08/22/22 00:01 Micro: Microbiology 08/20/22 18:42 Blood Culture - Preliminary Blood NEGATIVE TO DATE 08/20/22 18:25 Blood Culture - Preliminary Blood NEGATIVE TO DATE A&P Assessment and plan (1) EDWIN (acute kidney injury): Plan #1 acute kidney injury: Secondary to ATN from sepsis likely but patient has severe hyperkalemia despite medical management. Would benefit from dialysis temporarily. s/p line placement and started HD. HD again today for volume removal #2 hyperkalemia: improved , low potassium diet #3 pyelonephritis: Antibiotics per primary team #4 acute respiratory failure: Multifactorial, antibiotics per primary team. Patient evaluated using audiovisual cart. Time spent 40 minutes Attestations Medical Necessity Statement*: Patient requires a position for fluid overload, pneumonia, acute renal failure, hyperkalemia, requiring dialysis, requiring BiPAP therapy, Coding Level of Care Code Acute Code for [facility] Diagnoses EDWIN (acute kidney injury) N17.9
[2022-08-22] MEDS: zolpidem 5 mg Tablet 2.5 MG PO (20:24)
[2022-08-22] MEDS: acetaminophen 325 mg Tablet 650 MG PO (20:24)
[2022-08-22 21:20] LABS: Alanine Aminotransferase 15 U/L (0-41); Albumin Level 3.3 g/dL (3.5-5.2); Alkaline Phosphatase 104 U/L (40-130); Anion Gap 22.1 (5-19); Aspartate Amino Transferase 29 U/L (0-40); Blood Urea Nitrogen 63 mg/dL (8-23); Calcium 7.5 mg/dL (8.5-10.5); Carbon Dioxide 25 mmol/L (22-29); Chloride 93 mmol/L (98-107); Globulin 3.3 g/dL (1.3-4.6); Glomerular Filtration Rate 19.4 mL/min (90-130); Glucose 149 mg/dL (65-115); Magnesium 1.8 mg/dL (1.7-2.3); Osmolality Calculated 301 mOsm/kg (285-295); Phosphorus 7.1 mg/dL (2.5-4.5); Potassium 5.1 mmol/L (3.5-5.1); Sodium 135 mmol/L (136-145); Total Bilirubin 0.2 mg/dL (0.15-1.2); Total Protein 6.6 g/dL (6.6-8.7)
[2022-08-23] VITALS (46 sets, daily range): BP systolic 88–153; BP diastolic 51–129; PULSE 9–149; RESP 12–29; TEMP 36.6–37.2; O2SAT 91–98
[2022-08-23 03:24] LABS: Basophils % 0.1 %; Hematocrit 30.7 % (42.0-52.0); Hemoglobin 8.9 g/dL (11.7-16.6); Lymphocytes # 1.2 10^3/uL (0.8-4.8); Lymphocytes % 6.7 %; Mean Corpuscular Hemoglobin 23.4 pg (28.0-34.0); Mean Corpuscular Volume 80.6 fl (80-94); Mean Platelet Volume 11.8 fL (7.4-10.4); Monocytes # 0.9 10^3/uL (0.2-0.9); Neutrophils # 15.18 10^3/uL (1.8-7.7); Neutrophils % 87.4 %; Nucleated Red Blood Cells % 0 %; Platelet Count 470 10^3/cmm (130-400); Red Blood Count 3.81 10^6/uL (4.1-5.3); Red Cell Distribution Width 17.5 % (12.1-15.1); White Blood Count 17.4 10^3/uL (4.0-10.0)
[2022-08-23] MEDS: heparin, porcine 1,000 unit/mL INJ 10 mL 10000 UNIT HE (03:37)
[2022-08-23 03:43] LABS: C Reactive Protein 90.9 mg/L (0.0-4.9); Phosphorus 7.5 mg/dL (2.5-4.5)
[2022-08-23 03:51] LABS: NT Pro B Type Natriuretic Pept 1059 pg/mL (0-125)
[2022-08-23 03:54] LABS: Alanine Aminotransferase 18 U/L (0-41); Albumin Level 3.1 g/dL (3.5-5.2); Alkaline Phosphatase 96 U/L (40-130); Anion Gap 24.2 (5-19); Aspartate Amino Transferase 27 U/L (0-40); Blood Urea Nitrogen 71 mg/dL (8-23); Calcium 7.4 mg/dL (8.5-10.5); Carbon Dioxide 23 mmol/L (22-29); Chloride 94 mmol/L (98-107); Globulin 2.6 g/dL (1.3-4.6); Glucose 140 mg/dL (65-115); Osmolality Calculated 305 mOsm/kg (285-295); Potassium 5.2 mmol/L (3.5-5.1); Sodium 136 mmol/L (136-145); Total Bilirubin 0.2 mg/dL (0.15-1.2); Total Protein 5.7 g/dL (6.6-8.7)
[2022-08-23] MEDS: ipratropium 0.5 mg/2.5 mL Neb INHALATION ×5 (04:34→19:57)
[2022-08-23] MEDS: levalbuterol 0.63 mg/3 mL Neb INHALATION ×4 (04:34→19:55)
[2022-08-23] MEDS: piperacillin-tazobactam 3.375 GM in sodium chloride 0.9% (plus) 50 ML IV ×3 (05:14→21:22)
[2022-08-23] MEDS: heparin, porcine 1,000 unit/mL INJ 10 mL 10000 UNIT INTRACATH (06:29)
[2022-08-23] MEDS: budesonide 0.5 mg/2 mL Neb INHALATION ×2 (08:11→19:55)
[2022-08-23 08:28] LABS: ABG PCO2 45.5 mmHg (35-45); Arterial Blood Gas Hematocrit 31.1 % (42-52); Base Excess ABG 2.8 mmol/L (-2.0-2.0); Blood Gas Allen Test Pos; Blood Gas Operator Identificat GD; Blood Gas Sample Site Radial, right; Blood Gas Sample Type Arterial; HCO3 ABG 28.1 mmol/L (22-26); Oxygen Device BIPAP; PO2 ABG 92.5 mmHg (80.0-100.0)
[2022-08-23] MEDS: pantoprazole 40 mg SDV IVP ×2 (08:40→21:22)
[2022-08-23] MEDS: sucralfate 1 gm Tablet PO ×2 (08:41→18:00)
[2022-08-23] MEDS: aspirin 81 mg EC Tablet PO (08:41)
[2022-08-23] MEDS: metoprolol tartrate 25 mg Tablet PO ×2 (08:41→21:36)
--- NOTE | 2022-08-23 09:24 | PM.PN ---
Subjective Subjective: on 80 % fio2 via facemask Medications: Reviewed: Yes Vitals/I&O/Wt Last Vital Signs Temp 98 F 08/22/22 08:30 Pulse 106 H 08/23/22 08:25 Resp 19 H 08/23/22 08:25 BP 137/68 08/23/22 04:00 Pulse Ox 94 08/23/22 08:25 O2 Del Method 08/23/22 08:00 O2 Flow Rate 60 08/23/22 08:25 FiO2 80 08/23/22 08:25 08/22/22 08/23/22 08/23/22 22:59 06:59 14:59 Intake Total 663.169 / 1317.169 50 / 1367.169 Output Total 200 / 200 300 / 500 Balance 463.169 / 1117.169 -250 / 867.169 Weight last 48 hrs Weight 155 kg Weight 156.5 kg Weight 157.5 kg Physical Exam Urinary Catheter Management: Blake: Cath Placed During This Visit: yes Reason for Continuing Indwelling Catheter: Accurate Measurement of Urinary Output in Critically Ill Patients Urinary Catheter Date of Insertion: 08/20/22 Urinary Catheter Time of Insertion: 21:16 Data 08/23/22 02:18 08/23/22 02:18 A&P Assessment and plan (1) EDWIN (acute kidney injury): Plan #1 acute kidney injury: Secondary to ATN from sepsis likely but patient has severe hyperkalemia despite medical management. . s/p line placement and started HD. s/p HD last night #2 hyperkalemia: improved , low potassium diet #3 pyelonephritis: Antibiotics per primary team #4 acute respiratory failure: Multifactorial, antibiotics per primary team. Patient evaluated using audiovisual cart. Time spent 40 minutes Attestations Medical Necessity Statement*: Patient requires a position for fluid overload, pneumonia, acute renal failure, hyperkalemia, requiring dialysis, requiring BiPAP therapy, Coding Level of Care Code Acute Code for [facility] Diagnoses EDWIN (acute kidney injury) N17.9
--- NOTE | 2022-08-23 13:22 | P.PN_ITS ---
Subjective Subjective: Seen patient multiple times at bedside today Sitting in bed and watching television-currently on high flow nasal cannula 60 L 80%; overnight on BiPAP he was requiring only 60%; not in acute distress Earlier he he was out of bed to chair and had a large bowel movement after that his abdominal discomfort has decreased and he started feeling good. Other labs and imaging reviewed Medications: Reviewed: Yes Vitals/I&O/Wt Last Vital Signs Temp 98 F 08/23/22 11:30 Pulse 130 H 08/23/22 13:00 Resp 24 H 08/23/22 13:00 BP 113/66 08/23/22 12:30 Pulse Ox 94 08/23/22 12:30 O2 Del Method 08/23/22 08:00 O2 Flow Rate 60 08/23/22 09:59 FiO2 60 08/23/22 12:00 08/22/22 08/23/22 08/23/22 22:59 06:59 14:59 Intake Total 663.169 / 1317.169 50 / 1367.169 600 / 600 Output Total 200 / 200 300 / 500 Balance 463.169 / 1117.169 -250 / 867.169 600 / 600 Weight last 48 hrs Weight 341 lb 11.464 oz Weight 345 lb 0.375 oz Weight 347 lb 3.649 oz Physical Exam Narrative: General: Morbidly obese, alert and following commands-confused at times HEENT: conj clear, legally blind, PERRL, mmm, Neck: supple, no meningismus Heme: no cervical LAP Respiratory: Inspection: No visible deformity of the chest wall Palpation: Trachea is mildly deviated to the right, bilateral symmetric expansion Percussion: Bilateral tympanic percussion note both anterior and posteriorly Auscultation: Bilateral clear to auscultation both anterior and posteriorly, no crackles wheezing or rhonchi Cardiovascular: rrr, nl s1s2, no mrg Abdomen: soft, nt, nd, no r/g, bs+ Extremities: pulses +, 1+ pedal edema, no c/c : no CVA tenderness Skin: intact, no rash MSK: no back or neck pain Neurologic: grossly intact Urinary Catheter Management: Blake: Cath Placed During This Visit: yes Reason for Continuing Indwelling Catheter: Accurate Measurement of Urinary Output in Critically Ill Patients Urinary Catheter Date of Insertion: 08/20/22 Urinary Catheter Time of Insertion: 21:16 Data 08/23/22 02:18 08/23/22 02:18 Other Labs: Radiology Impressions Chest/Abdomen/Pelvis CT 08/20/22 18:13 IMPRESSION: 1. Bilateral dependent atelectasis versus infiltrate. 2. Several chronic posterior left rib fractures. 3. Scattered enlarged mediastinal lymph nodes measuring up to 15 mm, similar to prior exam, nonspecific. 4. Cardiomegaly. 5. Trace pericardial effusion. 6. Coronary artery atherosclerotic calcifications. IMPRESSION: 1. Mildly prominent fluid in the small bowel without dilation may reflect an enteritis. 2. Several hepatic cysts. 3. Left kidney punctate nonobstructing renal calyceal stone. 4. Perinephric edema likely reflecting renal insufficiency, please correlate for possible pyelonephritis. 5. Umbilical hernia containing omentum without bowel. 6. Left kidney exophytic 14 mm probable cyst, appears somewhat hyperdense, further evaluation with nonemergent renal ultrasound advised to evaluate for suspected cystic versus potentially solid nature. Venous Duplex 08/21/22 14:54 IMPRESSION: No evidence of deep vein thrombosis. Chest X-Ray 08/22/22 07:00 IMPRESSION: 1. Left lung base is obscured. Possible increasing atelectasis or consolidation and/or pleural fluid versus differences in radiographic projection. 2. Persistent mild opacity in the right lung base suggesting atelectasis. Laboratory Results WBC 17.4 10^3/uL (4.0-10.0) H 08/23/22 02:18 Corrected WBC Cancelled 08/22/22 05:33 RBC 3.81 10^6/uL (4.1-5.3) L 08/23/22 02:18 Hgb 8.9 g/dL (11.7-16.6) L 08/23/22 02:18 Hct 30.7 % (42.0-52.0) L 08/23/22 02:18 MCV 80.6 fl (80-94) 08/23/22 02:18 MCH 23.4 pg (28.0-34.0) L 08/23/22 02:18 MCHC 29.0 g/dL (30.0-36.0) L 08/23/22 02:18 RDW 17.5 % (12.1-15.1) H 08/23/22 02:18 Plt Count 470 10^3/cmm (130-400) H 08/23/22 02:18 MPV 11.8 fL (7.4-10.4) H 08/23/22 02:18 Gran % Cancelled 08/22/22 05:33 Neut % (Auto) 87.4 % 08/23/22 02:18 Lymph % (Auto) 6.7 % 08/23/22 02:18 [place] % (Auto) 5.0 % 08/23/22 02:18 Eos % (Auto) 0.0 % 08/23/22 02:18 Baso % (Auto) 0.1 % 08/23/22 02:18 Neut # (Auto) 15.18 10^3/uL (1.8-7.7) H 08/23/22 02:18 Lymph # (Auto) 1.2 10^3/uL (0.8-4.8) 08/23/22 02:18 [place] # (Auto) 0.9 10^3/uL (0.2-0.9) 08/23/22 02:18 Eos # (Auto) 0.0 10^3/uL (0.0-0.8) 08/23/22 02:18 Baso # (Auto) 0.0 10^3/uL (0.0-0.1) 08/23/22 02:18 Absolute Gran (auto) Cancelled 08/22/22 05:33 Nucleated RBC % (auto) 0 % 08/23/22 02:18 Nucleated RBCs # 0.0 /100WBC 08/23/22 02:18 PT 15.60 SECONDS (12.1-14.9) H 08/23/22 02:18 INR 1.20 (0.8-1.2) 08/23/22 02:18 Specimen Type Arterial 08/23/22 08:12 Sample Site Radial, right 08/23/22 08:12 ABG pH 7.40 (7.35-7.45) 08/23/22 08:12 ABG pCO2 45.5 mmHg (35-45) H 08/23/22 08:12 ABG pO2 92.5 mmHg (80.0-100.0) 08/23/22 08:12 ABG HCO3 28.1 mmol/L (22-26) H 08/23/22 08:12 ABG O2 Saturation 93.3 08/21/22 13:57 ABG Base Excess 2.8 mmol/L (-2.0-2.0) H 08/23/22 08:12 [place] Test Pos 08/23/22 08:12 A-a O2 Gradient 28.5 mmHg (5-10) H 08/21/22 13:57 Hematocrit 31.1 % (42-52) L 08/23/22 08:12 Hgb O2 Saturation 91.6 % (95-100) L 08/21/22 13:57 Carboxyhemoglobin 1.4 %THgb (0.4-20.1) 08/21/22 13:57 Methemoglobin 0.4 % (0.4-1.5) 08/21/22 13:57 Total Hemoglobin 9.5 g/dL (14-18) L 08/21/22 13:57 Sodium 137.0 mmol/L (131-143) 08/21/22 13:57 Potassium 6.7 mmol/L (3.5-5.0) H 08/21/22 13:57 Glucose 152.0 mg/dL (70-115) H 08/21/22 13:57 Ionized Calcium 1.1 mmol/L (1.1-1.4) 08/21/22 13:57 O2 Delivery Device Bipap 08/23/22 08:12 O2 Liters/Min 2.0 % 08/20/22 19:48 FiO2 60.0 % 08/23/22 08:12 Information Services Vice President ID Gd 08/23/22 08:12 Sodium 136 mmol/L (136-145) 08/23/22 02:18 Potassium 5.2 mmol/L (3.5-5.1) H 08/23/22 02:18 Chloride 94 mmol/L (98-107) L 08/23/22 02:18 Carbon Dioxide 23 mmol/L (22-29) 08/23/22 02:18 Anion Gap 24.2 (5-19) H 08/23/22 02:18 BUN 71 mg/dL (8-23) H 08/23/22 02:18 Creatinine 4.0 mg/dL (0.7-1.2) H 08/23/22 02:18 GFR Calculation 15.0 mL/min (90-130) L 08/23/22 02:18 Glucose 140 mg/dL (65-115) H 08/23/22 02:18 Calculated Osmolality 305 mOsm/kg (285-295) H 08/23/22 02:18 Lactate 2.0 mmol/L (0.5-2.2) 08/23/22 02:18 Calcium 7.4 mg/dL (8.5-10.5) L 08/23/22 02:18 Phosphorus 7.5 mg/dL (2.5-4.5) H 08/23/22 02:18 Magnesium 2.0 mg/dL (1.7-2.3) 08/23/22 02:18 Iron 11 ug/dL (59-158) L 08/21/22 10:05 TIBC 265 mcg/dl 08/21/22 10:05 % Saturation 4.1 % (20-50) L 08/21/22 10:05 Unsat Iron Binding 254 ug/dL (112-347) 08/21/22 10:05 Ferritin 16 ng/mL (30-400) L 08/21/22 10:05 Total Bilirubin 0.2 mg/dL (0.15-1.2) 08/23/22 02:18 AST 27 U/L (0-40) 08/23/22 02:18 ALT 18 U/L (0-41) 08/23/22 02:18 Alkaline Phosphatase 96 U/L (40-130) 08/23/22 02:18 Creatine Kinase 57 U/L (39-308) 08/21/22 10:05 Troponin T Baseline 92 ng/L (0-15) H 08/20/22 16:33 Troponin T 120 Minute 84.64 ng/L (0-15) H 08/20/22 18:25 Delta Troponin T -7.36 ABS# (0-10) L 08/20/22 18:25 Troponin T Hi Sens 6Hr 75.47 ng/L (0-15) H 08/20/22 22:32 Troponin T Hi Sens 6Hr Delta -16.53 ng/L (0-12) L 08/20/22 22:32 C-Reactive Protein 90.9 mg/L (0.0-4.9) H 08/23/22 02:18 NT-Pro-B Natriuret Pep 1059 pg/mL (0-125) H 08/23/22 02:18 Total Protein 5.7 g/dL (6.6-8.7) L 08/23/22 02:18 Albumin 3.1 g/dL (3.5-5.2) L 08/23/22 02:18 Globulin 2.6 g/dL (1.3-4.6) 08/23/22 02:18 Lipase 25 U/L (13-60) 08/20/22 16:33 Procalcitonin 0.20 ng/mL (0-0.5) 08/23/22 02:18 TSH 2.01 uIU/mL (0.27-4.20) 08/21/22 04:54 Urine Color Yellow (Yellow) 08/20/22 21:15 Urine Appearance Clear (CLEAR) 08/20/22 21:15 Urine pH 5 (5-7) 08/20/22 21:15 Ur Specific [place] 1.025 (1.005-1.030) 08/20/22 21:15 Urine Protein Trace (Negative) 08/20/22 21:15 Urine Glucose (UA) Norm (Normal) 08/20/22 21:15 Urine Ketones 1+ (Negative) H 08/20/22 21:15 Urine Blood Neg (Negative) 08/20/22 21:15 Urine Nitrate Negative (Negative) 08/20/22 21:15 Urine Bilirubin Neg (Negative) 08/20/22 21:15 Urine Urobilinogen 1 mg/dL (Negative) H 08/20/22 21:15 Ur Leukocyte Esterase Trace (Negative) H 08/20/22 21:15 Urine RBC 0-4 /hpf (0-2) H 08/20/22 21:15 Urine WBC 10-15 /hpf (0-5) H 08/20/22 21:15 Ur Squamous Epith Cells 0-4 /hpf (0-5) H 08/20/22 21:15 Calcium Oxalate Crystal 0-4 /hpf H 08/20/22 21:15 Amorphous Sediment Masking Machine Operator 08/20/22 21:15 Urine Bacteria 1+ /hpf (NONE) H 08/20/22 21:15 Ur Random Urea Nitrogn 253 mg/dL 08/20/22 23:00 Urine Creatinine 210 mg/dL (39-259) 08/20/22 23:00 Coronavirus 229E (PCR) Not detected (NOT DETECT) 08/20/22 23:00 Hep Bs Antigen Non-reactive (Nonreactive) 08/21/22 18:46 Hep Bs Antibody 3.5 (11.5-1000) L 08/21/22 18:46 Hep B Core Total Ab Non-reactive (Nonreactive) 08/21/22 18:46 Hepatitis C Antibody Non-reactive (Nonreactive) 08/21/22 18:46 SARS-CoV-2 (PCR) Not detected (NOT DETECT) 08/20/22 23:00 A&P Assessment and plan (1) Acute respiratory failure with hypoxia: (2) Hyperkalemia: (3) CHF (congestive heart failure): (4) EDWIN (acute kidney injury): (5) Sepsis: (6) Coronary artery disease: (7) History of type 2 diabetes mellitus: (8) COPD (chronic obstructive pulmonary disease): Qualifiers: COPD type: COPD with acute exacerbation Qualified Code(s): J44.1 - Chronic obstructive pulmonary disease with (acute) exacerbation (9) Atrial fibrillation: (10) Septic shock: Plan overall: 67-year-old male with significant past medical history of COPD, NATHALY on CPAP, morbid obesity, CKD, CAD, CHF, atrial fibrillation presented to emergency room for central chest pain relieved with nitroglycerin-admitted to ICU for close monitoring for developed hypotensive episodes as well as A-fib RVR, presumed sepsis secondary to pyelonephritis versus left lower lobe pneumonia, worsening renal function requiring hemodialysis NEURO: #Altered mental status-patient is legally blind-he is following commands for the most part and intermittently appears confused -I have known this patient in my clinic and mentation seems to me like his baseline at this point -Monitor mentation PULM: #Acute hypoxic respiratory failure -Patient has history of COPD and NATHALY on CPAP -Baseline home oxygen is 2 L at home -Currently requiring BiPAP with 60% FiO2 -Imaging suggestive of left lower lobe infiltrate suspicious for pneumonia- currently on vancomycin and Zosyn -With worsening renal functions and the intermittent A-fib and underlying CHF-I am concerned about patient getting fluid overloaded and probably going to respiratory failure -Monitor mentation and saturations-keep low threshold for intubation -I will recommend a chest physiotherapy 3 times a day -Encouraged to stay out of bed to chair and start physical therapy #COPD-currently does not appear to be in exacerbation -Recommended DuoNeb nebulization as needed CVS: #Intermittent A-fib RVR-currently rate controlled -Currently on metoprolol -He was on home Eliquis which was stopped secondary to GI bleed #Hypotensive episodes-likely from intermittent A-fib RVR versus septic shock secondary to pneumonia/pyelonephritis -Currently is not on any pressors GI: #Diet: soft diet with aspiration precautions . #GI prophylaxis: PPI #LFTs within normal limits RENAL: #EDWIN on CKD likely secondary to pyelonephritis/ATN secondary to hypotensive episodes #Hyperkalemia resistant to medical management - had HD and today 5.2 -Worsening renal function and urine output and potassium -Nephrology on board and pt receiving hemodialysis -Monitor electrolytes, renal functions, urine output HEM: #Leukocytosis-secondary to possible UTI/pneumonia #Low H&H-suspect GI bleed-no active bleeding-monitor H&H -Platelets normal ENDO: #Moderately controlled sugars-nondiabetic and does not need insulin coverage ID: #CT evidence of suspected pyelonephritis #Chest imaging suspicious for left lower lobe infiltrates suspicious for pneumonia --MRSA nares negative -Legionella and other urine bacterial antigens are negative -Blood cultures are pending -Currently on vancomycin and Zosyn Code Status: Full Disposition: ICU Critically ill: Yes discussed with: Patient, hospitalist, RN, RT ICU CHECKLIST: Problem list updated Verbal orders reviewed and signed Analgesia: Opioid Glycemic Control: N/A Nutrition: Soft with aspiration precautions Restraint Renewal (within 24 hrs): N/A Ulcer Prophylaxis: PPI Chemical Thromboprophylaxis: Prophylaxis: Heparin Mechanical Thromboprophylaxis: SCDs Need for Central line: N/A Need for Blake catheter: Yes for urine output monitoring Attestations Medical Necessity Statement*: A-fib RVR with intermittent hypotensive episodes, EDWIN with CKD requiring hemodialysis, worsening hypoxia requiring BiPAP-impending respiratory failure may require intubation-needs close ICU monitoring Time Spent in Patient Care: Greater than 35 minutes (>than 50% of time spent in counselling and/or direct pt care on unit) . Critical Care Time: This patient has a high probability of? clinically significant, sudden or life threatening deterioration of the patient's (pulmonary, renal, cardiac, hemodynamic) systems required my full, direct attention, the highest level of physician preparedness for urgent intervention and personal management.? I managed/supervised life or organ supporting interventions that required frequent physician assessment.? I devoted my full attention in the ICU to the direct care of this patient for the period of time indicated above.? Time I spent with family or surrogate(s) is included only if the patient was incapable of providing necessary information or participating in decision making.? This time includes the following services provided: Telemetry review Mechanical Ventilation Hemodynamic interpretation, assessment and management Review and interpretation of CXR Review and interpretation of lab values Review and interpretation of microbiologic data and culture results Review of medications and administration Review and interpretation of Nutrition requirements and management Discussion of management with other consultants and services Clinical update to family members [x] Data and vital sign review and interpretation [x] Patient assessment, examination and intervention [x] Documentation [x] Medication orders and management Time spent for teaching as well as performing procedures are billed separately and is not included in this note ? Critical Care Time (min): 57 Coding Level of Care Code Acute Code for [facility] Fwd Diagnoses Acute respiratory failure with hypoxia J96.01 Hyperkalemia E87.5 CHF (congestive heart failure) I50.9 EDWIN (acute kidney injury) N17.9 Sepsis A41.9 Coronary artery disease I25.10 History of type 2 diabetes mellitus Z86.39 COPD (chronic obstructive pulmonary disease) J44.1 COPD type: COPD with acute exacerbation Atrial fibrillation I48.91 Septic shock A41.9; R65.21 Time Spent (min) 57
--- NOTE | 2022-08-23 14:59 | PM.PN ---
Subjective Subjective: Patient was seen this morning, he feels better, no fevers, no chills Vitals/I&O/Wt Last Vital Signs Temp 98 F 08/23/22 11:30 Pulse 109 H 08/23/22 14:20 Resp 20 H 08/23/22 14:20 BP 113/66 08/23/22 12:30 Pulse Ox 95 08/23/22 14:20 O2 Del Method 08/23/22 14:10 O2 Flow Rate 60 08/23/22 14:20 FiO2 70 08/23/22 14:20 08/22/22 08/23/22 08/23/22 22:59 06:59 14:59 Intake Total 663.169 / 1317.169 50 / 1367.169 600 / 600 Output Total 200 / 200 300 / 500 Balance 463.169 / 1117.169 -250 / 867.169 600 / 600 Weight last 48 hrs Weight 155 kg Weight 156.5 kg Weight 157.5 kg Physical Exam Const: COMMON NORMALS: no acute distress and patient oriented x3 Resp: COMMON NORMALS: normal respiratory effort, No retractions, No use of accessory muscles and clear to auscultation bilaterally AUSCULTATION: clear to auscultation bilaterally Cardio: COMMON NORMALS: regular rate, regular rhythm, S1 normal heart sound present and S2 normal heart sound present RATE: regular rate RHYTHM: regular rhythm HEART SOUNDS: S1 normal heart sound present and S2 normal heart sound present GI: COMMON NORMALS: Normal to inspection, nondistended, normoactive bowel sounds present and non-tender Extremity: COMMON NORMALS: no pedal edema Neuro: COMMON NORMALS: patient oriented x3 Psych: COMMON NORMALS: mental status grossly normal Urinary Catheter Management: Blake: Cath Placed During This Visit: yes Reason for Continuing Indwelling Catheter: Accurate Measurement of Urinary Output in Critically Ill Patients Urinary Catheter Date of Insertion: 08/20/22 Urinary Catheter Time of Insertion: 21:16 Data 08/23/22 02:18 08/23/22 02:18 A&P Assessment and plan (1) Chest pain: (2) Sepsis: (3) EDWIN (acute kidney injury): (4) Hyperkalemia: (5) Pneumonia: (6) Abnormal CT scan, kidney: (7) Acute anemia: (8) Kidney lesion: (9) Rib fractures: Chronic fractures. Lidocaine patch. Incentive spirometry. Consider postdischarge assessment for osteoporosis. (10) NSTEMI (non-ST elevated myocardial infarction): (11) Hyperkalemia: (12) Acute respiratory failure with hypoxia: (13) GI bleed: (14) Acute encephalopathy: Plan Acute hypoxic hypercarbic respiratory failure -Likely multifactorial -From pneumonia -From COPD exacerbation -Now for fluid overload, given acute renal failure Plan -Continue BiPAP -Low threshold for intubation -Broad-spectrum antibiotic therapy vancomycin, Zosyn -Receiving dialysis for fluid overload, 3 L off Wednesday, 3.3 liters on Wednesday -Fluid restrictions -Full code -SCDs for DVT prophylaxis, anticoagulation relatively contraindicated given his anemia, concerns for GI bleed Acute renal failure -Likely secondary to hypotensive episode in the emergency room -Likely secondary to sepsis -Possibly related to NSAID use -Urine output, 1 L -Nephrology consulted Sepsis related to pneumonia, UTI, with acute renal failure, with acute encephalopathy Pneumonia -Antibiotics as above -Sputum cultures, blood cultures UTI with evidence of radiographic evidence of pyelonephritis -Continue broad-spectrum aerobic therapy -Monitor urine output -Monitor for fevers Acute encephalopathy -Improving -Likely secondary to sepsis -Likely secondary to uremia -Neurochecks, aspiration precautions -Precedex drip for agitation Acute hyperkalemia, 2 doses K delayed today -Resolved -Likely secondary to acute renal failure -Has failed 2 rounds of insulin/D50/calcium gluconate/Kayexalate -Received dialysis improved to 5.2, will be dialyzed again today -Continue telemetry monitoring Acute anemia Concerns for slow GI bleed/with evidence of iron deficiency anemia -Also some, related to renal failure -Hemoglobin pending -Patient has evidence of iron deficiency anemia, low iron, low ferritin -He was supposed to have a colonoscopy at [facility] but it could not be done in time -Hold antiplatelet and anticoagulant therapy -Continue Protonix, Carafate -Monitor hemoglobin Acute chest pain -Likely secondary to hyperkalemia -However cannot rule out underlying cardiac etiology -Serial EKGs serial troponins telemetry monitoring Trace pericardial effusion Scattered enlarged mediastinal lymph nodes measuring up to 15 mm,similar to prior exam, nonspecific. A-fib with RVR: Blood pressure soft and with EDWIN, decrease metoprolol to 12.5 mg twice daily for now. Monitor heart rate, blood pressures. Legally blind, COPD, normally on 2 L of oxygen. CHF, noted cardiomegaly. Looks fluid overloaded on chest x-ray, concerns for pulm edema worsening respiratory failure, will receive dialysis, NATHALY, nightly CPAP, currently on BiPAP history of CAD, takes a daily aspirin, atrial fibrillation on anticoagulation, hold Eliquis for now with acute anemia. morbid obesity, HTN, HLD Spoke to pulmonary, spoke to nephrology, spoke to nursing staff Attestations Medical Necessity Statement*: Patient requires hospital station for acute encephalopathy, acute respiratory failure, acute renal failure, pneumonia Diagnoses Chest pain R07.9 Sepsis A41.9 EDWIN (acute kidney injury) N17.9 Hyperkalemia E87.[address] scan, kidney R93.429 Acute anemia D64.9 Kidney lesion N28.9 Rib fractures S22.49XA NSTEMI (non-ST elevated myocardial infarction) I21.4 Hyperkalemia E87.5 Acute respiratory failure with hypoxia J96.01 GI bleed K92.2 Acute encephalopathy G93.40
[2022-08-23] MEDS: vancomycin 1,500 MG/300 ML PIGGYBACK 200 MG IV (15:51)
--- NOTE | 2022-08-23 16:44 | PC.HD ---
Pt was layed flat for dressing change with pt helping to hold large pannus out of the way. Pt denied symptoms, but HR increased to 130s to 140s while lying flat, gradually returning to 100s. Hoa MATIAS got EKG but waveform unchanged from earlier a-fib other than increased rate.
[2022-08-23] MEDS: sodium polystyrene sulfonate 15 gm/60 mL Btl PO (18:01)
[2022-08-23] MEDS: acetaminophen 325 mg Tablet 650 MG PO (21:23)
[2022-08-23] MEDS: lidocaine 5% Patch 1 PATCH TOPICAL (21:33)
[2022-08-23] MEDS: ondansetron 2 mg/ML SDV 2 mL 4 MG IVP (21:34)
[2022-08-24] VITALS (34 sets, daily range): BP systolic 111–149; BP diastolic 59–92; PULSE 75–122; RESP 14–26; TEMP 36.6–37.2; O2SAT 93–99; BMI 49.2
[2022-08-24 02:36] LABS: Basophils % 0.2 %; Hematocrit 31.3 % (42.0-52.0); Hemoglobin 9.3 g/dL (11.7-16.6); Lymphocytes # 1.2 10^3/uL (0.8-4.8); Lymphocytes % 7.8 %; Mean Corpuscular HGB Conc 29.7 g/dL (30.0-36.0); Mean Corpuscular Hemoglobin 23.7 pg (28.0-34.0); Mean Corpuscular Volume 79.6 fl (80-94); Mean Platelet Volume 10.9 fL (7.4-10.4); Monocytes % 6.7 %; Neutrophils # 12.82 10^3/uL (1.8-7.7); Neutrophils % 84.1 %; Nucleated Red Blood Cells # 0.1 /100WBC; Nucleated Red Blood Cells % 0.3 %; Platelet Count 468 10^3/cmm (130-400); Red Blood Count 3.93 10^6/uL (4.1-5.3); Red Cell Distribution Width 17.5 % (12.1-15.1); White Blood Count 15.3 10^3/uL (4.0-10.0)
[2022-08-24 02:54] LABS: INR 1.14 (0.8-1.2)
[2022-08-24 02:55] LABS: Lactate (Lactic Acid level) 1.6 mmol/L (0.5-2.2)
[2022-08-24 02:59] LABS: Alanine Aminotransferase 23 U/L (0-41); Albumin Level 3.1 g/dL (3.5-5.2); Alkaline Phosphatase 91 U/L (40-130); Anion Gap 24.1 (5-19); Aspartate Amino Transferase 22 U/L (0-40); Blood Urea Nitrogen 72 mg/dL (8-23); C Reactive Protein 42.3 mg/L (0.0-4.9); Calcium 7.2 mg/dL (8.5-10.5); Carbon Dioxide 23 mmol/L (22-29); Chloride 97 mmol/L (98-107); Globulin 2.4 g/dL (1.3-4.6); Glomerular Filtration Rate 14.6 mL/min (90-130); Glucose 168 mg/dL (65-115); Osmolality Calculated 313 mOsm/kg (285-295); Potassium 5.1 mmol/L (3.5-5.1); Sodium 139 mmol/L (136-145); Total Bilirubin 0.2 mg/dL (0.15-1.2); Total Protein 5.5 g/dL (6.6-8.7)
[2022-08-24 03:06] LABS: NT Pro B Type Natriuretic Pept 1944 pg/mL (0-125); Procalcitonin 0.18 ng/mL (0-0.5)
[2022-08-24 03:17] LABS: Phosphorus 7.8 mg/dL (2.5-4.5)
[2022-08-24] MEDS: ipratropium 0.5 mg/2.5 mL Neb INHALATION ×4 (03:23→20:19)
[2022-08-24] MEDS: levalbuterol 0.63 mg/3 mL Neb INHALATION ×4 (03:23→20:18)
[2022-08-24] MEDS: acetaminophen 325 mg Tablet 650 MG PO (03:30)
[2022-08-24 03:44] LABS: ABG PCO2 44.4 mmHg (35-45); ABG PH Result 7.35 (7.35-7.45); Arterial Blood Gas Hematocrit 29.4 % (42-52); Base Excess ABG -1.2 mmol/L (-2.0-2.0); Blood Gas Allen Test Pos; Blood Gas Sample Site Radial, right; Blood Gas Sample Type Arterial; HCO3 ABG 24.5 mmol/L (22-26); Oxygen Device BIPAP
[2022-08-24] MEDS: piperacillin-tazobactam 3.375 GM in sodium chloride 0.9% (plus) 50 ML IV ×3 (05:43→22:53)
[2022-08-24] MEDS: sodium polystyrene sulfonate 15 gm/60 mL Btl PO ×2 (05:53→18:02)
[2022-08-24] MEDS: sucralfate 1 gm Tablet PO ×2 (07:52→21:42)
[2022-08-24] MEDS: metoprolol tartrate 25 mg Tablet PO ×2 (07:52→21:43)
[2022-08-24] MEDS: aspirin 81 mg EC Tablet PO (07:52)
[2022-08-24] MEDS: pantoprazole 40 mg SDV IVP ×2 (07:53→21:42)
[2022-08-24] MEDS: lidocaine 5% Patch 1 PATCH TOPICAL ×2 (07:54→21:42)
[2022-08-24] MEDS: budesonide 0.5 mg/2 mL Neb INHALATION ×2 (08:17→20:18)
[2022-08-24] MEDS: ipratropium-albuterol 3 mL Neb INHALATION (08:17)
--- NOTE | 2022-08-24 15:23 | PM.PN ---
Subjective Subjective: Patient this morning was eating breakfast at the time of evaluation on 60% 60 L high flow nasal cannula Senior Account Representative updated Spoke with Dr. Segal Nephrology recommended monitor for next 2 days of dialysis and then decide whether we will go with the permacatheter placement right now we can watch him for until Wednesday He can be transferred out of ICU Cultures remain negative Afebrile Leukocytosis improving Echo is showing no new changes as compared to previous echo however EF has not been reported Vitals/I&O/Wt Last Vital Signs Temp 97.9 F 08/24/22 03:00 Pulse 110 H 08/24/22 13:13 Resp 22 H 08/24/22 13:13 BP 129/91 08/24/22 13:00 Pulse Ox 93 08/24/22 13:13 O2 Del Method 08/24/22 13:13 O2 Flow Rate 55 08/24/22 13:13 FiO2 50 08/24/22 13:13 08/24/22 08/24/22 08/24/22 06:59 14:59 22:59 Intake Total 270 / 2520 230 / 230 Output Total 100 / 3703 Balance 170 / -1183 230 / 230 Weight last 48 hrs Weight 155.582 kg Weight 155 kg Weight 155 kg Physical Exam Narrative: Patient was slightly fluid overloaded Currently on 60% 6 L high flow nasal cannula Legally blind No active focal deficit noted S1, S2 variable Abdomen soft Pleasant and cooperative No audible stridor or wheezing Right groin temporary dialysis catheter in place Urinary Catheter Management: Blake: Cath Placed During This Visit: yes Reason for Continuing Indwelling Catheter: Accurate Measurement of Urinary Output in Critically Ill Patients Urinary Catheter Date of Insertion: 08/20/22 Urinary Catheter Time of Insertion: 21:16 Data 08/24/22 02:24 08/24/22 02:24 Micro: Microbiology 08/24/22 09:10 Occult Blood (FIT) - Final Stool Routine Collection A&P Assessment and plan (1) Acute encephalopathy: (2) GI bleed: (3) Acute respiratory failure with hypoxia: (4) Hyperkalemia: (5) Atrial fibrillation: (6) Kidney lesion: (7) Rib fractures: (8) Pyelonephritis of left kidney: (9) UTI (urinary tract infection): (10) Smoker: (11) NSTEMI (non-ST elevated myocardial infarction): Plan Patient has multiple comorbid conditions such as NATHALY COPD chronic kidney disease coronary disease A-fib presented to the hospital with chest pain, A-fib RVR hypotensive episodes concern for sepsis related to pyelonephritis patient received antibiotics, IV fluids however developed ATN requiring hemodialysis Sepsis with metabolic encephalopathy: Resolved ATN: Dialysis dependent, as per nephro we will watch him off dialysis for next 2 days and then decide whether we will opt for permacath, for now we will monitor urine output potassium, pH, bicarb level, Patient made roughly 400 ml urine Acute hypoxic respiratory failure Secondary to fluid overload Community-acquired pneumonia Currently patient is on Zosyn, agree with current antibiotics, continue Zosyn Vancomycin has been discontinued, MRSA PCR nares negative Cultures negative Dr. Segal has recommended chest physiotherapy, out of bed to chair, Intermittent A-fib currently heart rate has been fluctuating around 110 Patient on metoprolol Not on Eliquis because of history of GI bleed Patient is full code Can be transferred out of ICU Lives with his Active smoker Currently on PPI for ulcer prophylaxis On DVT prophylaxis Temporal dialysis cath in right groin Cultures remain negative Attestations Medical Necessity Statement*: Patient can be transferred out of ICU Diagnoses Acute encephalopathy G93.40 GI bleed K92.2 Acute respiratory failure with hypoxia J96.01 Hyperkalemia E87.5 Atrial fibrillation I48.91 Kidney lesion N28.9 Rib fractures S22.49XA Pyelonephritis of left kidney N12 UTI (urinary tract infection) N39.0 Smoker F17.200 NSTEMI (non-ST elevated myocardial infarction) I21.4
[2022-08-24 15:48] LABS: Vancomycin Trough 23.9 ug/mL (10-15)
--- NOTE | 2022-08-24 19:06 | PM.PN ---
Subjective Subjective: Patient seen at bedside today He appears comfortable-Sitting out of bed to chair Down to high flow nasal cannula 50 L 50% Denied any complaints and reported subjective improvement in his symptoms Urine output still not adequate-renal functions plateaued with creatinine 4.1-he may need a few more dialysis sessions to make further decision about permacath as per nephrology We will transfer him out of ICU Medications: Reviewed: Yes Vitals/I&O/Wt Last Vital Signs Temp 98.4 F 08/24/22 17:08 Pulse 97 08/24/22 17:08 Resp 21 H 08/24/22 17:08 BP 120/69 08/24/22 17:08 Pulse Ox 94 08/24/22 16:00 O2 Del Method 08/24/22 15:37 O2 Flow Rate 50 08/24/22 15:37 FiO2 50 08/24/22 15:37 08/24/22 08/24/22 08/24/22 06:59 14:59 22:59 Intake Total 270 / 2520 350 / 350 Output Total 100 / 3703 Balance 170 / -1183 350 / 350 Weight last 48 hrs Weight 343 lb Weight 341 lb 11.464 oz Weight 341 lb 11.464 oz Physical Exam Narrative: General: Morbidly obese, alert and following commands-confused at times HEENT: conj clear, legally blind, PERRL, mmm, Neck: supple, no meningismus Heme: no cervical LAP Respiratory: Inspection: No visible deformity of the chest wall Palpation: Trachea is mildly deviated to the right, bilateral symmetric expansion Percussion: Bilateral tympanic percussion note both anterior and posteriorly Auscultation: Bilateral clear to auscultation both anterior and posteriorly, no crackles wheezing or rhonchi Cardiovascular: rrr, nl s1s2, no mrg Abdomen: soft, nt, nd, no r/g, bs+ Extremities: pulses +, 1+ pedal edema, no c/c : no CVA tenderness Skin: intact, no rash MSK: no back or neck pain Neurologic: grossly intact Urinary Catheter Management: Blake: Cath Placed During This Visit: yes Reason for Continuing Indwelling Catheter: Accurate Measurement of Urinary Output in Critically Ill Patients Urinary Catheter Date of Insertion: 08/20/22 Urinary Catheter Time of Insertion: 21:16 Data 08/24/22 02:24 08/24/22 02:24 Other Labs: Radiology Impressions Chest/Abdomen/Pelvis CT 08/20/22 18:13 IMPRESSION: 1. Bilateral dependent atelectasis versus infiltrate. 2. Several chronic posterior left rib fractures. 3. Scattered enlarged mediastinal lymph nodes measuring up to 15 mm, similar to prior exam, nonspecific. 4. Cardiomegaly. 5. Trace pericardial effusion. 6. Coronary artery atherosclerotic calcifications. IMPRESSION: 1. Mildly prominent fluid in the small bowel without dilation may reflect an enteritis. 2. Several hepatic cysts. 3. Left kidney punctate nonobstructing renal calyceal stone. 4. Perinephric edema likely reflecting renal insufficiency, please correlate for possible pyelonephritis. 5. Umbilical hernia containing omentum without bowel. 6. Left kidney exophytic 14 mm probable cyst, appears somewhat hyperdense, further evaluation with nonemergent renal ultrasound advised to evaluate for suspected cystic versus potentially solid nature. Venous Duplex 08/21/22 14:54 IMPRESSION: No evidence of deep vein thrombosis. Chest X-Ray 08/22/22 07:00 IMPRESSION: 1. Left lung base is obscured. Possible increasing atelectasis or consolidation and/or pleural fluid versus differences in radiographic projection. 2. Persistent mild opacity in the right lung base suggesting atelectasis. Laboratory Results WBC 15.3 10^3/uL (4.0-10.0) H 08/24/22 02:24 Corrected WBC Cancelled 08/22/22 05:33 RBC 3.93 10^6/uL (4.1-5.3) L 08/24/22 02:24 Hgb 9.3 g/dL (11.7-16.6) L 08/24/22 02:24 Hct 31.3 % (42.0-52.0) L 08/24/22 02:24 MCV 79.6 fl (80-94) L 08/24/22 02:24 MCH 23.7 pg (28.0-34.0) L 08/24/22 02:24 MCHC 29.7 g/dL (30.0-36.0) L 08/24/22 02:24 RDW 17.5 % (12.1-15.1) H 08/24/22 02:24 Plt Count 468 10^3/cmm (130-400) H 08/24/22 02:24 MPV 10.9 fL (7.4-10.4) H 08/24/22 02:24 Gran % Cancelled 08/22/22 05:33 Neut % (Auto) 84.1 % 08/24/22 02:24 Lymph % (Auto) 7.8 % 08/24/22 02:24 [place] % (Auto) 6.7 % 08/24/22 02:24 Eos % (Auto) 0.0 % 08/24/22 02:24 Baso % (Auto) 0.2 % 08/24/22 02:24 Neut # (Auto) 12.82 10^3/uL (1.8-7.7) H 08/24/22 02:24 Lymph # (Auto) 1.2 10^3/uL (0.8-4.8) 08/24/22 02:24 [place] # (Auto) 1.0 10^3/uL (0.2-0.9) H 08/24/22 02:24 Eos # (Auto) 0.0 10^3/uL (0.0-0.8) 08/24/22 02:24 Baso # (Auto) 0.0 10^3/uL (0.0-0.1) 08/24/22 02:24 Absolute Gran (auto) Cancelled 08/22/22 05:33 Nucleated RBC % (auto) 0.3 % 08/24/22 02:24 Nucleated RBCs # 0.1 /100WBC 08/24/22 02:24 PT 15.00 SECONDS (12.1-14.9) H 08/24/22 02:24 INR 1.14 (0.8-1.2) 08/24/22 02:24 Specimen Type Arterial 08/24/22 04:00 Sample Site Radial, right 08/24/22 04:00 ABG pH 7.35 (7.35-7.45) 08/24/22 04:00 ABG pCO2 44.4 mmHg (35-45) 08/24/22 04:00 ABG pO2 146.0 mmHg (80.0-100.0) H 08/24/22 04:00 ABG HCO3 24.5 mmol/L (22-26) 08/24/22 04:00 ABG O2 Saturation 93.3 08/21/22 13:57 ABG Base Excess -1.2 mmol/L (-2.0-2.0) 08/24/22 04:00 [place] Test Pos 08/24/22 04:00 A-a O2 Gradient 28.5 mmHg (5-10) H 08/21/22 13:57 Hematocrit 29.4 % (42-52) L 08/24/22 04:00 Hgb O2 Saturation 91.6 % (95-100) L 08/21/22 13:57 Carboxyhemoglobin 1.4 %THgb (0.4-20.1) 08/21/22 13:57 Methemoglobin 0.4 % (0.4-1.5) 08/21/22 13:57 Total Hemoglobin 9.5 g/dL (14-18) L 08/21/22 13:57 Sodium 137.0 mmol/L (131-143) 08/21/22 13:57 Potassium 6.7 mmol/L (3.5-5.0) H 08/21/22 13:57 Glucose 152.0 mg/dL (70-115) H 08/21/22 13:57 Ionized Calcium 1.1 mmol/L (1.1-1.4) 08/21/22 13:57 O2 Delivery Device Bipap 08/24/22 04:00 O2 Liters/Min 2.0 % 08/20/22 19:48 FiO2 60.0 % 08/24/22 04:00 Forest And Conservation Worker ID [email or web address] 08/24/22 04:00 Sodium 139 mmol/L (136-145) 08/24/22 02:24 Potassium 5.1 mmol/L (3.5-5.1) 08/24/22 02:24 Chloride 97 mmol/L (98-107) L 08/24/22 02:24 Carbon Dioxide 23 mmol/L (22-29) 08/24/22 02:24 Anion Gap 24.1 (5-19) H 08/24/22 02:24 BUN 72 mg/dL (8-23) H 08/24/22 02:24 Creatinine 4.1 mg/dL (0.7-1.2) H 08/24/22 02:24 GFR Calculation 14.6 mL/min (90-130) L 08/24/22 02:24 Glucose 168 mg/dL (65-115) H 08/24/22 02:24 Calculated Osmolality 313 mOsm/kg (285-295) H 08/24/22 02:24 Lactate 1.6 mmol/L (0.5-2.2) 08/24/22 02:24 Calcium 7.2 mg/dL (8.5-10.5) L 08/24/22 02:24 Phosphorus 7.8 mg/dL (2.5-4.5) H* 08/24/22 02:24 Magnesium 2.0 mg/dL (1.7-2.3) 08/24/22 02:24 Iron 11 ug/dL (59-158) L 08/21/22 10:05 TIBC 265 mcg/dl 08/21/22 10:05 % Saturation 4.1 % (20-50) L 08/21/22 10:05 Unsat Iron Binding 254 ug/dL (112-347) 08/21/22 10:05 Ferritin 16 ng/mL (30-400) L 08/21/22 10:05 Total Bilirubin 0.2 mg/dL (0.15-1.2) 08/24/22 02:24 AST 22 U/L (0-40) 08/24/22 02:24 ALT 23 U/L (0-41) 08/24/22 02:24 Alkaline Phosphatase 91 U/L (40-130) 08/24/22 02:24 Creatine Kinase 57 U/L (39-308) 08/21/22 10:05 Troponin T Baseline 92 ng/L (0-15) H 08/20/22 16:33 Troponin T 120 Minute 84.64 ng/L (0-15) H 08/20/22 18:25 Delta Troponin T -7.36 ABS# (0-10) L 08/20/22 18:25 Troponin T Hi Sens 6Hr 75.47 ng/L (0-15) H 08/20/22 22:32 Troponin T Hi Sens 6Hr Delta -16.53 ng/L (0-12) L 08/20/22 22:32 C-Reactive Protein 42.3 mg/L (0.0-4.9) H 08/24/22 02:24 NT-Pro-B Natriuret Pep 1944 pg/mL (0-125) H 08/24/22 02:24 Total Protein 5.5 g/dL (6.6-8.7) L 08/24/22 02:24 Albumin 3.1 g/dL (3.5-5.2) L 08/24/22 02:24 Globulin 2.4 g/dL (1.3-4.6) 08/24/22 02:24 Lipase 25 U/L (13-60) 08/20/22 16:33 Procalcitonin 0.18 ng/mL (0-0.5) 08/24/22 02:24 TSH 2.01 uIU/mL (0.27-4.20) 08/21/22 04:54 Urine Color Yellow (Yellow) 08/20/22 21:15 Urine Appearance Clear (CLEAR) 08/20/22 21:15 Urine pH 5 (5-7) 08/20/22 21:15 Ur Specific [place] 1.025 (1.005-1.030) 08/20/22 21:15 Urine Protein Trace (Negative) 08/20/22 21:15 Urine Glucose (UA) Norm (Normal) 08/20/22 21:15 Urine Ketones 1+ (Negative) H 08/20/22 21:15 Urine Blood Neg (Negative) 08/20/22 21:15 Urine Nitrate Negative (Negative) 08/20/22 21:15 Urine Bilirubin Neg (Negative) 08/20/22 21:15 Urine Urobilinogen 1 mg/dL (Negative) H 08/20/22 21:15 Ur Leukocyte Esterase Trace (Negative) H 08/20/22 21:15 Urine RBC 0-4 /hpf (0-2) H 08/20/22 21:15 Urine WBC 10-15 /hpf (0-5) H 08/20/22 21:15 Ur Squamous Epith Cells 0-4 /hpf (0-5) H 08/20/22 21:15 Calcium Oxalate Crystal 0-4 /hpf H 08/20/22 21:15 Amorphous Sediment Assistant Inventory Manager 08/20/22 21:15 Urine Bacteria 1+ /hpf (NONE) H 08/20/22 21:15 Ur Random Urea Nitrogn 253 mg/dL 08/20/22 23:00 Urine Creatinine 210 mg/dL (39-259) 08/20/22 23:00 Vancomycin Trough 23.9 ug/mL (10-15) H 08/24/22 15:05 Coronavirus 229E (PCR) Not detected (NOT DETECT) 08/20/22 23:00 Hep Bs Antigen Non-reactive (Nonreactive) 08/21/22 18:46 Hep Bs Antibody 3.5 (11.5-1000) L 08/21/22 18:46 Hep B Core Total Ab Non-reactive (Nonreactive) 08/21/22 18:46 Hepatitis C Antibody Non-reactive (Nonreactive) 08/21/22 18:46 SARS-CoV-2 (PCR) Not detected (NOT DETECT) 08/20/22 23:00 Micro: Microbiology 08/24/22 09:10 Occult Blood (FIT) - Final Stool Routine Collection A&P Assessment and plan (1) Acute respiratory failure with hypoxia: (2) Hyperkalemia: (3) CHF (congestive heart failure): (4) EDWIN (acute kidney injury): (5) Sepsis: (6) Coronary artery disease: (7) History of type 2 diabetes mellitus: (8) COPD (chronic obstructive pulmonary disease): Qualifiers: COPD type: COPD with acute exacerbation Qualified Code(s): J44.1 - Chronic obstructive pulmonary disease with (acute) exacerbation (9) Atrial fibrillation: (10) Septic shock: Plan overall: 67-year-old male with significant past medical history of COPD, NATHALY on CPAP, morbid obesity, CKD, CAD, CHF, atrial fibrillation presented to emergency room for central chest pain relieved with nitroglycerin-admitted to ICU for close monitoring for developed hypotensive episodes as well as A-fib RVR, presumed sepsis secondary to pyelonephritis versus left lower lobe pneumonia, worsening renal function requiring hemodialysis NEURO: #Altered mental status-patient is legally blind-he is following commands for the most part and intermittently appears confused -I have known this patient in my clinic and mentation seems to me like his baseline at this point -Monitor mentation PULM: #Acute hypoxic respiratory failure -Patient has history of COPD and NATHALY on CPAP -Baseline home oxygen is 2 L at home -Currently requiring BiPAP with 50% FiO2-ABG significantly betterNumber -Imaging suggestive of left lower lobe infiltrate suspicious for pneumonia-currently on Zosyn -With worsening renal functions and the intermittent A-fib and underlying CHF-I am concerned about patient getting fluid overloaded and probably going to respiratory failure -Monitor mentation and saturations-keep low threshold for intubation -I will recommend a chest physiotherapy 3 times a day -Encouraged to stay out of bed to chair and start physical therapy #COPD-currently does not appear to be in exacerbation -Recommended DuoNeb nebulization as needed CVS: #Intermittent A-fib RVR-currently rate controlled -Currently on metoprolol -He was on home Eliquis which was stopped secondary to GI bleed #Hypotensive episodes-likely from intermittent A-fib RVR versus septic shock secondary to pneumonia/pyelonephritis -Currently is not on any pressors GI: #Diet: soft diet with aspiration precautions . #GI prophylaxis: PPI #LFTs within normal limits RENAL: #EDWIN on CKD likely secondary to pyelonephritis/ATN secondary to hypotensive episodes #Hyperkalemia resistant to medical management - had HD and today 5.2 -Worsening renal function and urine output and potassium -Nephrology on board and pt receiving hemodialysis -Monitor electrolytes, renal functions, urine output HEM: #Leukocytosis-secondary to possible UTI/pneumonia #Low H&H-suspect GI bleed-no active bleeding-monitor H&H -Platelets normal ENDO: #Moderately controlled sugars-nondiabetic and does not need insulin coverage ID: #CT evidence of suspected pyelonephritis #Chest imaging suspicious for left lower lobe infiltrates suspicious for pneumonia --MRSA nares negative-discontinued vancomycin -Legionella and other urine bacterial antigens are negative -Blood cultures are pending -Currently on Zosyn Code Status: Full Disposition: ICU Critically ill: Yes MD discussed with: Patient, hospitalist, RN, RT ICU CHECKLIST: Problem list updated Verbal orders reviewed and signed Analgesia: Opioid Glycemic Control: N/A Nutrition: Soft with aspiration precautions Restraint Renewal (within 24 hrs): N/A Ulcer Prophylaxis: PPI Chemical Thromboprophylaxis: Prophylaxis: Heparin Mechanical Thromboprophylaxis: SCDs Need for Central line: N/A Need for Blake catheter: Yes for urine output monitoring Attestations Medical Necessity Statement*: A-fib RVR with intermittent hypotensive episodes, EDWIN with CKD requiring hemodialysis, worsening hypoxia requiring BiPAP-impending respiratory failure may require intubation-needs close ICU monitoring Time Spent in Patient Care: Greater than 35 minutes (>than 50% of time spent in counselling and/or direct pt care on unit). Critical Care Time: This patient has a high probability of? clinically significant, sudden or life threatening deterioration of the patient's (pulmonary, renal, cardiac, hemodynamic) systems required my full, direct attention, the highest level of physician preparedness for urgent intervention and personal management.? I managed/supervised life or organ supporting interventions that required frequent physician assessment.? I devoted my full attention in the ICU to the direct care of this patient for the period of time indicated above.? Time I spent with family or surrogate(s) is included only if the patient was incapable of providing necessary information or participating in decision making.? This time includes the following services provided: Telemetry review Mechanical Ventilation Hemodynamic interpretation, assessment and management Review and interpretation of CXR Review and interpretation of lab values Review and interpretation of microbiologic data and culture results Review of medications and administration Review and interpretation of Nutrition requirements and management Discussion of management with other consultants and services Clinical update to family members [x] Data and vital sign review and interpretation [x] Patient assessment, examination and intervention [x] Documentation [x] Medication orders and management Time spent for teaching as well as performing procedures are billed separately and is not included in this note ? Critical Care Time (min): 53 Coding Level of Care Code Acute Code for [facility] Fwd Diagnoses Acute respiratory failure with hypoxia J96.01 Hyperkalemia E87.5 CHF (congestive heart failure) I50.9 EDWIN (acute kidney injury) N17.9 Sepsis A41.9 Coronary artery disease I25.10 History of type 2 diabetes mellitus Z86.39 COPD (chronic obstructive pulmonary disease) J44.1 COPD type: COPD with acute exacerbation Atrial fibrillation I48.91 Septic shock A41.9; R65.21 Time Spent (min) 53
--- NOTE | 2022-08-24 20:55 | PM.PN ---
Subjective Subjective: 60 % FIO2 on high flow 02 Medications: Reviewed: Yes Vitals/I&O/Wt Last Vital Signs Temp 98.6 F 08/24/22 20:16 Pulse 109 H 08/24/22 20:19 Resp 20 H 08/24/22 20:19 BP 127/72 08/24/22 20:16 Pulse Ox 94 08/24/22 20:19 O2 Del Method 08/24/22 20:19 O2 Flow Rate 50 08/24/22 20:19 FiO2 50 08/24/22 20:19 08/24/22 08/24/22 08/24/22 06:59 14:59 22:59 Intake Total 270 / 2520 350 / 350 470 / 820 Output Total 100 / 3703 3625 / 3625 Balance 170 / -1183 350 / 350 -3155 / -2805 Weight last 48 hrs Weight 153.8 kg Weight 155.582 kg Weight 155 kg Weight 155 kg Physical Exam Urinary Catheter Management: Blake: Cath Placed During This Visit: yes Reason for Continuing Indwelling Catheter: Accurate Measurement of Urinary Output in Critically Ill Patients Urinary Catheter Date of Insertion: 08/20/22 Urinary Catheter Time of Insertion: 21:16 Data 08/24/22 02:24 08/24/22 02:24 Micro: Microbiology 08/24/22 09:10 Occult Blood (FIT) - Final Stool Routine Collection A&P Assessment and plan (1) EDWIN (acute kidney injury): Plan #1 acute kidney injury: Secondary to ATN from sepsis likely but patient has severe hyperkalemia despite medical management. . HD today Once pt O2 requirements improved and hemodynamically stable , will hold off HD and watch for renal receovery #2 hyperkalemia: improved , low potassium diet #3 pyelonephritis: Antibiotics per primary team #4 acute respiratory failure: Multifactorial, antibiotics per primary team. Patient evaluated using audiovisual cart. Time spent 40 minutes Attestations Medical Necessity Statement*: Patient requires a position for fluid overload, pneumonia, acute renal failure, hyperkalemia, requiring dialysis, requiring BiPAP therapy, Coding Level of Care Code Acute Code for [facility] Fwd Diagnoses EDWIN (acute kidney injury) N17.9
[2022-08-24] MEDS: ondansetron 2 mg/ML SDV 2 mL 4 MG IVP (21:42)
[2022-08-25] VITALS (43 sets, daily range): BP systolic 95–151; BP diastolic 51–95; PULSE 79–149; RESP 13–32; TEMP 36.4–37.1; O2SAT 87–100; BMI 51.5
--- NOTE | 2022-08-25 00:32 | PC.PHAR ---
Spoke with physician and based on recent decline in renal function, adjusting Zosyn dose of 3.375 g from Q8H to Q12H in order to preserve renal function. Will monitor and adjust as necessary.
[2022-08-25] MEDS: ipratropium 0.5 mg/2.5 mL Neb INHALATION ×3 (03:01→13:29)
[2022-08-25] MEDS: levalbuterol 0.63 mg/3 mL Neb INHALATION ×4 (03:01→20:41)
[2022-08-25 03:54] LABS: Basophils % 0.2 %; Hematocrit 32.7 % (42.0-52.0); Hemoglobin 9.9 g/dL (11.7-16.6); Lymphocytes # 2.2 10^3/uL (0.8-4.8); Lymphocytes % 10.8 %; Mean Corpuscular HGB Conc 30.3 g/dL (30.0-36.0); Mean Corpuscular Hemoglobin 23.4 pg (28.0-34.0); Mean Corpuscular Volume 77.3 fl (80-94); Mean Platelet Volume 10.9 fL (7.4-10.4); Monocytes # 2.2 10^3/uL (0.2-0.9); Monocytes % 10.8 %; Neutrophils # 15.29 10^3/uL (1.8-7.7); Neutrophils % 76.7 %; Nucleated Red Blood Cells % 0.2 %; Platelet Count 496 10^3/cmm (130-400); Red Blood Count 4.23 10^6/uL (4.1-5.3); Red Cell Distribution Width 17.2 % (12.1-15.1); White Blood Count 19.9 10^3/uL (4.0-10.0)
[2022-08-25 04:13] LABS: Alanine Aminotransferase 25 U/L (0-41); Albumin Level 3.3 g/dL (3.5-5.2); Alkaline Phosphatase 93 U/L (40-130); Anion Gap 22.5 (5-19); Aspartate Amino Transferase 19 U/L (0-40); Blood Urea Nitrogen 76 mg/dL (8-23); Calcium 7.3 mg/dL (8.5-10.5); Carbon Dioxide 24 mmol/L (22-29); Chloride 95 mmol/L (98-107); Globulin 2.9 g/dL (1.3-4.6); Glomerular Filtration Rate 15.9 mL/min (90-130); Glucose 104 mg/dL (65-115); Osmolality Calculated 307 mOsm/kg (285-295); Potassium 4.5 mmol/L (3.5-5.1); Sodium 137 mmol/L (136-145); Total Bilirubin 0.2 mg/dL (0.15-1.2); Total Protein 6.2 g/dL (6.6-8.7)
[2022-08-25] MEDS: sodium polystyrene sulfonate 15 gm/60 mL Btl PO (05:18)
[2022-08-25] MEDS: sucralfate 1 gm Tablet PO ×2 (05:19→20:35)
[2022-08-25] MEDS: metoprolol tartrate 25 mg Tablet PO ×2 (08:16→20:36)
[2022-08-25] MEDS: pantoprazole 40 mg SDV IVP ×2 (08:16→20:36)
[2022-08-25] MEDS: aspirin 81 mg EC Tablet PO (08:16)
[2022-08-25] MEDS: budesonide 0.5 mg/2 mL Neb INHALATION ×2 (08:18→20:41)
[2022-08-25] MEDS: piperacillin-tazobactam 3.375 GM in sodium chloride 0.9% (plus) 50 ML IV ×2 (09:14→21:49)
--- NOTE | 2022-08-25 10:14 | P.PN_ITS ---
Subjective Subjective: Patient seen at bedside today He appears comfortable-Sitting out of bed to chair-on commode Down to high flow nasal cannula 50 L 45% Denied any complaints and reported subjective improvement in his symptoms Urine output still not adequate-renal functions plateaued with creatinine 4.1- General surgery to place permacath He can be transferred out of ICU Medications: Reviewed: Yes Vitals/I&O/Wt Last Vital Signs Temp 98.3 F 08/25/22 04:00 Pulse 103 H 08/25/22 09:00 Resp 19 H 08/25/22 09:00 BP 132/84 08/25/22 09:00 Pulse Ox 96 08/25/22 09:00 O2 Del Method 08/25/22 08:15 O2 Flow Rate 50 08/25/22 08:15 FiO2 50 08/25/22 08:15 08/24/22 08/25/22 08/25/22 22:59 06:59 14:59 Intake Total 590 / 940 268.75 / 1208.75 590 / 590 Output Total 4050 / 4050 250 / 4300 Balance -3460 / -3110 18.75 / -3091.25 590 / 590 Weight last 48 hrs Weight 359 lb 5.655 oz Weight 339 lb 1.135 oz Weight 343 lb Weight 341 lb 11.464 oz Physical Exam Narrative: General: Morbidly obese, alert and following commands-confused at times HEENT: conj clear, legally blind, PERRL, mmm, Neck: supple, no meningismus Heme: no cervical LAP Respiratory: Inspection: No visible deformity of the chest wall Palpation: Trachea is mildly deviated to the right, bilateral symmetric expansion Percussion: Bilateral tympanic percussion note both anterior and posteriorly Auscultation: Bilateral clear to auscultation both anterior and posteriorly, no crackles wheezing or rhonchi Cardiovascular: rrr, nl s1s2, no mrg Abdomen: soft, nt, nd, no r/g, bs+ Extremities: pulses +, 1+ pedal edema, no c/c : no CVA tenderness Skin: intact, no rash MSK: no back or neck pain Neurologic: grossly intact Urinary Catheter Management: Blake: Cath Placed During This Visit: yes Reason for Continuing Indwelling Catheter: Accurate Measurement of Urinary Output in Critically Ill Patients Urinary Catheter Date of Insertion: 03/23/23 Urinary Catheter Time of Insertion: 21:16 Data 08/25/22 03:33 08/25/22 03:33 Other Labs: Radiology Impressions Chest/Abdomen/Pelvis CT 08/20/22 18:13 IMPRESSION: 1. Bilateral dependent atelectasis versus infiltrate. 2. Several chronic posterior left rib fractures. 3. Scattered enlarged mediastinal lymph nodes measuring up to 15 mm, similar to prior exam, nonspecific. 4. Cardiomegaly. 5. Trace pericardial effusion. 6. Coronary artery atherosclerotic calcifications. IMPRESSION: 1. Mildly prominent fluid in the small bowel without dilation may reflect an enteritis. 2. Several hepatic cysts. 3. Left kidney punctate nonobstructing renal calyceal stone. 4. Perinephric edema likely reflecting renal insufficiency, please correlate for possible pyelonephritis. 5. Umbilical hernia containing omentum without bowel. 6. Left kidney exophytic 14 mm probable cyst, appears somewhat hyperdense, further evaluation with nonemergent renal ultrasound advised to evaluate for suspected cystic versus potentially solid nature. Venous Duplex 08/21/22 14:54 IMPRESSION: No evidence of deep vein thrombosis. Chest X-Ray 08/22/22 07:00 IMPRESSION: 1. Left lung base is obscured. Possible increasing atelectasis or consolidation and/or pleural fluid versus differences in radiographic projection. 2. Persistent mild opacity in the right lung base suggesting atelectasis. Laboratory Results WBC 19.9 10^3/uL (4.0-10.0) H 08/25/22 03:33 Corrected WBC Cancelled 08/22/22 05:33 RBC 4.23 10^6/uL (4.1-5.3) 08/25/22 03:33 Hgb 9.9 g/dL (11.7-16.6) L 08/25/22 03:33 Hct 32.7 % (42.0-52.0) L 08/25/22 03:33 MCV 77.3 fl (80-94) L 08/25/22 03:33 MCH 23.4 pg (28.0-34.0) L 08/25/22 03:33 MCHC 30.3 g/dL (30.0-36.0) 08/25/22 03:33 RDW 17.2 % (12.1-15.1) H 08/25/22 03:33 Plt Count 496 10^3/cmm (130-400) H 08/25/22 03:33 MPV 10.9 fL (7.4-10.4) H 08/25/22 03:33 Gran % Cancelled 08/22/22 05:33 Neut % (Auto) 76.7 % 08/25/22 03:33 Lymph % (Auto) 10.8 % 08/25/22 03:33 [place] % (Auto) 10.8 % 08/25/22 03:33 Eos % (Auto) 0.0 % 08/25/22 03:33 Baso % (Auto) 0.2 % 08/25/22 03:33 Neut # (Auto) 15.29 10^3/uL (1.8-7.7) H 08/25/22 03:33 Lymph # (Auto) 2.2 10^3/uL (0.8-4.8) 08/25/22 03:33 [place] # (Auto) 2.2 10^3/uL (0.2-0.9) H 08/25/22 03:33 Eos # (Auto) 0.0 10^3/uL (0.0-0.8) 08/25/22 03:33 Baso # (Auto) 0.0 10^3/uL (0.0-0.1) 08/25/22 03:33 Absolute Gran (auto) Cancelled 08/22/22 05:33 Nucleated RBC % (auto) 0.2 % 08/25/22 03:33 Nucleated RBCs # 0.0 /100WBC 08/25/22 03:33 PT 15.00 SECONDS (12.1-14.9) H 08/24/22 02:24 INR 1.14 (0.8-1.2) 08/24/22 02:24 Specimen Type Arterial 08/24/22 04:00 Sample Site Radial, right 08/24/22 04:00 ABG pH 7.35 (7.35-7.45) 08/24/22 04:00 ABG pCO2 44.4 mmHg (35-45) 08/24/22 04:00 ABG pO2 146.0 mmHg (80.0-100.0) H 08/24/22 04:00 ABG HCO3 24.5 mmol/L (22-26) 08/24/22 04:00 ABG O2 Saturation 93.3 08/21/22 13:57 ABG Base Excess -1.2 mmol/L (-2.0-2.0) 08/24/22 04:00 [place] Test Pos 08/24/22 04:00 A-a O2 Gradient 28.5 mmHg (5-10) H 08/21/22 13:57 Hematocrit 29.4 % (42-52) L 08/24/22 04:00 Hgb O2 Saturation 91.6 % (95-100) L 08/21/22 13:57 Carboxyhemoglobin 1.4 %THgb (0.4-20.1) 08/21/22 13:57 Methemoglobin 0.4 % (0.4-1.5) 08/21/22 13:57 Total Hemoglobin 9.5 g/dL (14-18) L 08/21/22 13:57 Sodium 137.0 mmol/L (131-143) 08/21/22 13:57 Potassium 6.7 mmol/L (3.5-5.0) H 08/21/22 13:57 Glucose 152.0 mg/dL (70-115) H 08/21/22 13:57 Ionized Calcium 1.1 mmol/L (1.1-1.4) 08/21/22 13:57 O2 Delivery Device Bipap 08/24/22 04:00 O2 Liters/Min 2.0 % 08/20/22 19:48 FiO2 60.0 % 08/24/22 04:00 Antichecking Iron Worker ID [email or web address] 08/24/22 04:00 Sodium 137 mmol/L (136-145) 08/25/22 03:33 Potassium 4.5 mmol/L (3.5-5.1) 08/25/22 03:33 Chloride 95 mmol/L (98-107) L 08/25/22 03:33 Carbon Dioxide 24 mmol/L (22-29) 08/25/22 03:33 Anion Gap 22.5 (5-19) H 08/25/22 03:33 BUN 76 mg/dL (8-23) H 08/25/22 03:33 Creatinine 3.8 mg/dL (0.7-1.2) H 08/25/22 03:33 GFR Calculation 15.9 mL/min (90-130) L 08/25/22 03:33 Glucose 104 mg/dL (65-115) 08/25/22 03:33 Calculated Osmolality 307 mOsm/kg (285-295) H 08/25/22 03:33 Lactate 1.6 mmol/L (0.5-2.2) 08/24/22 02:24 Calcium 7.3 mg/dL (8.5-10.5) L 08/25/22 03:33 Phosphorus 7.8 mg/dL (2.5-4.5) H* 08/24/22 02:24 Magnesium 2.0 mg/dL (1.7-2.3) 08/24/22 02:24 Iron 11 ug/dL (59-158) L 08/21/22 10:05 TIBC 265 mcg/dl 08/21/22 10:05 % Saturation 4.1 % (20-50) L 08/21/22 10:05 Unsat Iron Binding 254 ug/dL (112-347) 08/21/22 10:05 Ferritin 16 ng/mL (30-400) L 08/21/22 10:05 Total Bilirubin 0.2 mg/dL (0.15-1.2) 08/25/22 03:33 AST 19 U/L (0-40) 08/25/22 03:33 ALT 25 U/L (0-41) 08/25/22 03:33 Alkaline Phosphatase 93 U/L (40-130) 08/25/22 03:33 Creatine Kinase 57 U/L (39-308) 08/21/22 10:05 Troponin T Baseline 92 ng/L (0-15) H 08/20/22 16:33 Troponin T 120 Minute 84.64 ng/L (0-15) H 08/20/22 18:25 Delta Troponin T -7.36 ABS# (0-10) L 08/20/22 18:25 Troponin T Hi Sens 6Hr 75.47 ng/L (0-15) H 08/20/22 22:32 Troponin T Hi Sens 6Hr Delta -16.53 ng/L (0-12) L 08/20/22 22:32 C-Reactive Protein 42.3 mg/L (0.0-4.9) H 08/24/22 02:24 NT-Pro-B Natriuret Pep 1944 pg/mL (0-125) H 08/24/22 02:24 Total Protein 6.2 g/dL (6.6-8.7) L 08/25/22 03:33 Albumin 3.3 g/dL (3.5-5.2) L 08/25/22 03:33 Globulin 2.9 g/dL (1.3-4.6) 08/25/22 03:33 Lipase 25 U/L (13-60) 08/20/22 16:33 Procalcitonin 0.18 ng/mL (0-0.5) 08/24/22 02:24 TSH 2.01 uIU/mL (0.27-4.20) 08/21/22 04:54 Urine Color Yellow (Yellow) 08/20/22 21:15 Urine Appearance Clear (CLEAR) 08/20/22 21:15 Urine pH 5 (5-7) 08/20/22 21:15 Ur Specific [place] 1.025 (1.005-1.030) 08/20/22 21:15 Urine Protein Trace (Negative) 08/20/22 21:15 Urine Glucose (UA) Norm (Normal) 08/20/22 21:15 Urine Ketones 1+ (Negative) H 08/20/22 21:15 Urine Blood Neg (Negative) 08/20/22 21:15 Urine Nitrate Negative (Negative) 08/20/22 21:15 Urine Bilirubin Neg (Negative) 08/20/22 21:15 Urine Urobilinogen 1 mg/dL (Negative) H 08/20/22 21:15 Ur Leukocyte Esterase Trace (Negative) H 08/20/22 21:15 Urine RBC 0-4 /hpf (0-2) H 08/20/22 21:15 Urine WBC 10-15 /hpf (0-5) H 08/20/22 21:15 Ur Squamous Epith Cells 0-4 /hpf (0-5) H 08/20/22 21:15 Calcium Oxalate Crystal 0-4 /hpf H 08/20/22 21:15 Amorphous Sediment Delicatessen Slicer 08/20/22 21:15 Urine Bacteria 1+ /hpf (NONE) H 08/20/22 21:15 Ur Random Urea Nitrogn 253 mg/dL 08/20/22 23:00 Urine Creatinine 210 mg/dL (39-259) 08/20/22 23:00 Vancomycin Trough 23.9 ug/mL (10-15) H 08/24/22 15:05 Coronavirus 229E (PCR) Not detected (NOT DETECT) 08/20/22 23:00 Hep Bs Antigen Non-reactive (Nonreactive) 08/21/22 18:46 Hep Bs Antibody 3.5 (11.5-1000) L 08/21/22 18:46 Hep B Core Total Ab Non-reactive (Nonreactive) 08/21/22 18:46 Hepatitis C Antibody Non-reactive (Nonreactive) 08/21/22 18:46 SARS-CoV-2 (PCR) Not detected (NOT DETECT) 08/20/22 23:00 Micro: Microbiology 08/24/22 09:10 Occult Blood (FIT) - Final Stool Routine Collection A&P Assessment and plan (1) Acute respiratory failure with hypoxia: (2) Hyperkalemia: (3) CHF (congestive heart failure): (4) EDWIN (acute kidney injury): (5) Sepsis: (6) Coronary artery disease: (7) History of type 2 diabetes mellitus: (8) COPD (chronic obstructive pulmonary disease): Qualifiers: COPD type: COPD with acute exacerbation Qualified Code(s): J44.1 - Chronic obstructive pulmonary disease with (acute) exacerbation (9) Atrial fibrillation: (10) Septic shock: Plan overall: 67-year-old male with significant past medical history of COPD, NATHALY on CPAP, morbid obesity, CKD, CAD, CHF, atrial fibrillation presented to emergency room for central chest pain relieved with nitroglycerin-admitted to ICU for close monitoring for developed hypotensive episodes as well as A-fib RVR, presumed sepsis secondary to pyelonephritis versus left lower lobe pneumonia, worsening renal function requiring hemodialysis NEURO: #Altered mental status-patient is legally blind-he is following commands for the most part and intermittently appears confused -I have known this patient in my clinic and mentation seems to me like his baseline at this point -Monitor mentation PULM: #Acute hypoxic respiratory failure -Patient has history of COPD and NATHALY on CPAP -Baseline home oxygen is 2 L at home -Currently requiring BiPAP with 50% FiO2-ABG significantly better -Imaging suggestive of left lower lobe infiltrate suspicious for pneumonia-curr ently on Zosyn -With worsening renal functions and the intermittent A-fib and underlying CHF-I am concerned about patient getting fluid overloaded and probably going to respiratory failure -Monitor mentation and saturations-keep low threshold for intubation -I will recommend a chest physiotherapy 3 times a day -Encouraged to stay out of bed to chair and start physical therapy #COPD-currently does not appear to be in exacerbation -Recommended DuoNeb nebulization as needed CVS: #Intermittent A-fib RVR-currently rate controlled -Currently on metoprolol -He was on home Eliquis which was stopped secondary to GI bleed #Hypotensive episodes-likely from intermittent A-fib RVR versus septic shock secondary to pneumonia/pyelonephritis -Currently is not on any pressors GI: #Diet: soft diet with aspiration precautions . #GI prophylaxis: PPI #LFTs within normal limits RENAL: #EDWIN on CKD likely secondary to pyelonephritis/ATN secondary to hypotensive episodes #Hyperkalemia resistant to medical management - had HD and today 4.5 -Worsening renal function and urine output and potassium -Nephrology on board and pt receiving hemodialysis - will go for permath -Monitor electrolytes, renal functions, urine output HEM: #Leukocytosis-secondary to possible UTI/pneumonia #Low H&H-suspect GI bleed-no active bleeding-monitor H&H -Platelets normal ENDO: #Moderately controlled sugars-nondiabetic and does not need insulin coverage ID: #CT evidence of suspected pyelonephritis #Chest imaging suspicious for left lower lobe infiltrates suspicious for pneum onia --MRSA nares negative-discontinued vancomycin -Legionella and other urine bacterial antigens are negative -Blood cultures are pending -Currently on Zosyn Code Status: Full Disposition: med surg Critically ill: Yes MD discussed with: Patient, hospitalist, RN, RT ICU CHECKLIST: Problem list updated Verbal orders reviewed and signed Analgesia: Opioid Glycemic Control: N/A Nutrition: Soft with aspiration precautions Restraint Renewal (within 24 hrs): N/A Ulcer Prophylaxis: PPI Chemical Thromboprophylaxis: Prophylaxis: Heparin Mechanical Thromboprophylaxis: SCDs Need for Central line: N/A Need for Blake catheter: Yes for urine output monitoring Attestations Medical Necessity Statement*: clinically improved and can go out of icu Time Spent in Patient Care: Greater than 35 minutes (>than 50% of time spent in counselling and/or direct pt care on unit) . Critical Care Time: This patient has a high probability of? clinically significant, sudden or life threatening deterioration of the patient's (pu lmonary, renal, cardiac, hemodynamic) systems required my full, direct attention, the highest level of physician preparedness for urgent intervention and personal management.? I managed/supervised life or organ supporting interventions that required frequent physician assessment.? I devoted my full attention in the ICU to the direct care of this patient for the period of time indicated above.? Time I spent with family or surrogate(s) is included only if the patient was incapable of providing necessary information or participating in decision making.? This time includes the following services provided: Telemetry review Mechanical Ventilation Hemodynamic interpretation, assessment and management Review and interpretation of CXR Review and interpretation of lab values Review and interpretation of microbiologic data and culture results Review of medications and administration Review and interpretation of Nutrition requirements and management Discussion of management with other consultants and services Clinical update to family members [x] Data and vital sign review and interpretation [x] Patient assessment, examination and intervention [x] Documentation [x] Medication orders and management Time spent for teaching as well as performing procedures are billed separately and is not included in this note ? Critical Care Time (min): 53 Coding Level of Care Code Critical Care >/= 30 minutes Diagnoses Acute respiratory failure with hypoxia J96.01 Hyperkalemia E87.5 CHF (congestive heart failure) I50.9 EDWIN (acute kidney injury) N17.9 Sepsis A41.9 Coronary artery disease I25.10 History of type 2 diabetes mellitus Z86.39 COPD (chronic obstructive pulmonary disease) J44.1 COPD type: COPD with acute exacerbation Atrial fibrillation I48.91 Septic shock A41.9; R65.21 Time Spent (min) 36
--- NOTE | 2022-08-25 11:08 | P.PN_ITS ---
Subjective Subjective: ON 50% fio2 Medications: Reviewed: Yes Vitals/I&O/Wt Last Vital Signs Temp 98.3 F 08/25/22 04:00 Pulse 103 H 08/25/22 09:00 Resp 19 H 08/25/22 09:00 BP 132/84 08/25/22 09:00 Pulse Ox 96 08/25/22 09:00 O2 Del Method 08/25/22 08:15 O2 Flow Rate 50 08/25/22 08:15 FiO2 50 08/25/22 08:15 08/24/22 08/25/22 08/25/22 22:59 06:59 14:59 Intake Total 590 / 940 268.75 / 1208.75 590 / 590 Output Total 4050 / 4050 250 / 4300 Balance -3460 / -3110 18.75 / -3091.25 590 / 590 Weight last 48 hrs Weight 163 kg Weight 153.8 kg Weight 155.582 kg Weight 155 kg Physical Exam Urinary Catheter Management: Balke: Cath Placed During This Visit: yes Reason for Continuing Indwelling Catheter: Accurate Measurement of Urinary Output in Critically Ill Patients Urinary Catheter Date of Insertion: 08/20/22 Urinary Catheter Time of Insertion: 21:16 Data 08/25/22 03:33 08/25/22 03:33 Micro: Microbiology 08/24/22 09:10 Occult Blood (FIT) - Final Stool Routine Collection A&P Assessment and plan (1) EDWIN (acute kidney injury): Plan #1 acute kidney injury: Secondary to ATN from sepsis likely but patient has severe hyperkalemia despite medical management. . HD again today . no sign of renal recovery yet , Place tunnelled catheter #2 hyperkalemia: improved , low potassium diet #3 pyelonephritis: Antibiotics per primary team #4 acute respiratory failure: Multifactorial, antibiotics per primary team.wean O2 as tolerated Patient evaluated using audiovisual cart. Time spent 40 minutes Attestations Medical Necessity Statement*: Patient requires a position for fluid overload, pneumonia, acute renal failure, hyperkalemia, requiring dialysis, requiring BiPAP therapy, Coding Level of Care Code Acute Code for [facility] Fwd Diagnoses EDWIN (acute kidney injury) N17.9
--- NOTE | 2022-08-25 11:50 | PM.PN ---
Subjective Subjective: Requested Dr. Dominguez for permacath placement Spoke with Dr. Whitehead day spa manager Spoke with Dr. Segal Patient is okay to be transferred out of ICU once we have a bed upstairs Patient is endorsing feeling better Had 3 bowel movements yesterday No active pain Patient is stating that he has updated his yesterday Currently patient is on 50 L 50% on IV antibiotics Clinical signs of fluid overload Vitals/I&O/Wt Last Vital Signs Temp 98.3 F 08/25/22 04:00 Pulse 103 H 08/25/22 09:00 Resp 19 H 08/25/22 09:00 BP 132/84 08/25/22 09:00 Pulse Ox 96 08/25/22 09:00 O2 Del Method 08/25/22 08:15 O2 Flow Rate 50 08/25/22 08:15 FiO2 50 08/25/22 08:15 08/24/22 08/25/22 08/25/22 22:59 06:59 14:59 Intake Total 590 / 940 268.75 / 1208.75 590 / 590 Output Total 4050 / 4050 250 / 4300 Balance -3460 / -3110 18.75 / -3091.25 590 / 590 Weight last 48 hrs Weight 163 kg Weight 153.8 kg Weight 155.582 kg Weight 155 kg Physical Exam Narrative: Patient is endorsing feeling better Awake and alert GCS 15 Legally blind Macular degeneration Distended abdomen Fluid overload Blake catheter with 100 mL urine Pleasant and cooperative Nonfocal neuro exam Currently on 50 L 50% heated high flow Nonfocal neuro exam S1, S2 variable Urinary Catheter Management: Blake: Cath Placed During This Visit: yes Reason for Continuing Indwelling Catheter: Accurate Measurement of Urinary Output in Critically Ill Patients Urinary Catheter Date of Insertion: 08/20/22 Urinary Catheter Time of Insertion: 21:16 Data 08/25/22 03:33 08/25/22 03:33 Micro: Microbiology 08/24/22 09:10 Occult Blood (FIT) - Final Stool Routine Collection A&P Assessment and plan (1) Acute encephalopathy: (2) Acute respiratory failure with hypoxia: (3) Hyperkalemia: (4) Rib fractures: (5) Sepsis: (6) COPD (chronic obstructive pulmonary disease): Qualifiers: COPD type: COPD with acute exacerbation Qualified Code(s): J44.1 - Chronic obstructive pulmonary disease with (acute) exacerbation (7) Atrial fibrillation: Plan Metabolic encephalopathy related to sepsis and pneumonia: Resolved End-stage renal disease patient will need permacath placement he will be dialysis dependent assistant manager quality management updated to find chair time Acute hypoxic respite failure Currently on 50% 50 L Hopefully after dialysis for discussions will be able to wean him off At home uses 2 L If he remains stable I might switch to p.o. antibiotics by tomorrow Cultures negative so far Intermittent A-fib: Currently on metoprolol Not a candidate of Eliquis Full code Transfer out of ICU DVT prophylaxis: Heparin Legal blindness related macular degeneration 3 bowel movements, Attestations Medical Necessity Statement*: Out of ICU Diagnoses Acute encephalopathy G93.40 Acute respiratory failure with hypoxia J96.01 Hyperkalemia E87.5 Rib fractures S22.49XA Sepsis A41.9 COPD (chronic obstructive pulmonary disease) J44.1 COPD type: COPD with acute exacerbation Atrial fibrillation I48.91
--- NOTE | 2022-08-25 12:00 | PC.SOCIAL ---
Imm update Imm updated with patient at bedside. Copy of page 2 provided. Patient verbalized understanding. Copy in chart initialed, dated and timed.
--- NOTE | 2022-08-25 13:57 | PC.NURSE ---
Dr. Ho approved holding ordered heparin for possible dialysis cath placement
[2022-08-25] MEDS: acetaminophen 325 mg Tablet 650 MG PO (15:38)
[2022-08-25] MEDS: TRAMadol 50 mg Tablet PO ×2 (15:45→23:54)
--- NOTE | 2022-08-25 16:57 | ECG_ITS ---
[facility] Test Date: 2022-08-25 Pat Name: Artie Quiles Department: Room: 271 Gender: Male Residential Advisor: : [id number] Requested By: Delmar Ho Order Number: [id number] José Antonio MD: Gadiel Kinsey M.D. Measurements Intervals [place] Rate: P: 0 IN: 0 QRS: 0 QRSD: 0 T: 0 QT: 0 QTc: 0 Interpretive Statements Atrial fibrillation with frequent PVCs Diffuse nonspecific T wave changes ATYPICAL ECG WARNING: DATA QUALITY MAY AFFECT INTERPRETATION INTERPRETATION BASED ON A DEFAULT AGE OF 40 YEARS Compared to ECG 08/21/2022 09:33:44 Atrial flutter no longer present Electronically Signed On 08-26-2022 0:33:29 CDT by Gadiel Kinsey M.D. [id number]
[2022-08-25 17:06] LABS: ABG PH Result 7.35 (7.35-7.45); Alveolar-Arterial Oxygen Gradi 20.7 mmHg (5-10); Arterial Blood Gas Hematocrit 35.1 % (42-52); Base Excess ABG -3.5 mmol/L (-2.0-2.0); Blood Gas Allen Test Pos; Blood Gas Operator Identificat CAK; Blood Gas Sample Site Radial, right; Blood Gas Sample Type Arterial; HCO3 ABG 21.7 mmol/L (22-26); HGB O2 Sat 93.8 % (95-100); Methemoglobin 0.6 % (0.4-1.5); Oxygen Device BIPAP; Oxygen Saturation ABG 95.4; PO2 ABG 79.9 mmHg (80.0-100.0); Potassium Level - ABG 4.3 mmol/L (3.5-5.0); Total Hemoglobin 11.4 g/dL (14-18)
--- NOTE | 2022-08-25 17:11 | PC.NURSE ---
Patient went to dialysis at at 1615. Rapid response called by the dialysis nurse at 1645 due to patient was short of breath, very anxious, carranza in color. Blood pressure was 107/83, HR 61 and pulse OX 93% on 5 liters at time of call. Rapid response team responded. Dr. Ho notified by this nurse. Dr. Ho gave order for EKG, Blood Gas, accucheck and for patient to be put on Bipap.
--- NOTE | 2022-08-25 17:15 | XRR_ITS ---
PROCEDURE INFORMATION: Exam: XR Chest Exam date and time: 08/25/2022 4:25 PM Age: 67 years old Clinical indication: Shortness of breath; Additional info: Rapid respose for SOB TECHNIQUE: Imaging protocol: Radiologic exam of the chest. Views: 1 view. COMPARISON: CR (CHEST, ) 08/22/2022 7:54 AM FINDINGS: Lungs: Right lower lobe atelectasis. The lungs are otherwise clear No consolidation. Pleural spaces: Unremarkable. No pleural effusion. No pneumothorax. Heart/Mediastinum: Unremarkable. No cardiomegaly. Bones/joints: Unremarkable. XR/XR chest 1V portable [id number] IMPRESSION: 1. No acute findings. 2. Right lower lobe atelectasis
[2022-08-25 17:19] LABS: Glucose Point of Care 97 mg/dL (70-110)
--- NOTE | 2022-08-25 17:43 | PC.HD ---
Patient was undergoing hemodialysis for approximately 25 minutes, on 5L NC. He suddenly became very anxious and insisted on getting up. Bed was as high as it would go. Patient's skin became slightly carranza and dusky and he was slightly diaphoretic O2 Sats were 93%, but patient stated he could not breath and was becoming increasingly panicked. Rapid response was initiated. Patient was placed on BiPap and very quickly stated that he felt much better. Skin color was improved. Diaphoresis eased. Patient began joking with staff and stated that he was all right. Per hospitalist, dialysis machine restrung and treatment continued. Patient has been back on HD for 30 minutes since the rapid response and is resting quietly wtih no issues noted. Aoc [employer]ad[employer] Operations Staff Officer informed.
[2022-08-25 18:02] LABS: Glucose Point of Care 139 mg/dL (70-110)
[2022-08-25] MEDS: amiodarone 50 mg/mL SDV 3 mL 150 MG IVP (18:06)
[2022-08-25] MEDS: ondansetron 2 mg/ML SDV 2 mL 4 MG IVP (18:20)
--- NOTE | 2022-08-25 18:23 | PC.NURSE ---
Patient went to dialysis at at 1615. Rapid response called 1745 due to patient was short of breath, very anxious, carranza in color. Blood pressure was Blood Pressure 125/75, HR 78 and pulse OX 95% on BiPap at time of call. Rapid response team responded. Dr. Ho gave order for labs, amiodarone, and to transfer back to ICU. Report called to Barbi
--- NOTE | 2022-08-25 18:45 | PC.HD ---
After initiat rapid response, dialysis machine was restrung and treatment was reinitiated. Patient had no complaints and was resting comfortably until 1744. He complained of chest pain and shortness of breath. He became very anxious and diaphoretic, and became slightly dusky. One two occasions patient became briefly unresponsive. Rapid response was called again. Per hospitalist, dialysis treatment was terminated and patient was transferred back to ICU. Java Developer Consultant is aware.
--- NOTE | 2022-08-25 18:48 | PC.NURSE ---
Pt arrives to ICU from [facility]. Aifib noted on monitor. Rate 140-160's. Pt sitting on side of bed complaining about his tailbone hurting. Amio gtt started.
--- NOTE | 2022-08-25 19:00 | PC.NURSE ---
Pt assisted to recliner. He is calling his . Brief report given to FLORECNIO Chavarria
[2022-08-25 19:10] LABS: Blood Urea Nitrogen 71 mg/dL (8-23); Calcium 7.7 mg/dL (8.5-10.5); Carbon Dioxide 22 mmol/L (22-29); Chloride 92 mmol/L (98-107); Glomerular Filtration Rate 14.6 mL/min (90-130); Glucose 146 mg/dL (65-115); Magnesium 1.9 mg/dL (1.7-2.3); Osmolality Calculated 303 mOsm/kg (285-295); Sodium 135 mmol/L (136-145)
[2022-08-25 19:13] LABS: Anion Gap 25.4 (5-19); Potassium 4.4 mmol/L (3.5-5.1)
[2022-08-25 19:14] LABS: Troponin(5th) Baseline 66 ng/L (0-15)
[2022-08-25] MEDS: lidocaine 5% Patch 1 PATCH TOPICAL (20:36)
[2022-08-25] MEDS: ipratropium-albuterol 3 mL Neb INHALATION (20:41)
[2022-08-25 21:03] LABS: Troponin 5 2HR 68.76 ng/L (0-15)
[2022-08-25 21:04] LABS: Troponin 5 2HR Delta 2.76 ABS# (0-10)
--- NOTE | 2022-08-25 22:26 | ECG_ITS ---
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 Measurements Intervals [place] Rate: 108 P: 0 TN: 0 QRS: 1 QRSD: 93 T: 54 QT: 320 QTc: 430 Interpretive Statements ATRIAL FIBRILLATION WITH RAPID VENTRICULAR RESPONSE WITH ABERRANT CONDUCTION OR VENTRICULAR PREMATURE COMPLEXES ABNORMAL RHYTHM ECG Compared to ECG 08/25/2022 16:57:24 Ventricular premature complex(es) now present Aberrant conduction of supraventricular beat(s) now present Electronically Signed On 08-26-2022 0:57:33 CDT by Gadiel Kinsey M.D. [id number]
[2022-08-25] MEDS: heparin 5,000 unit/mL INJ 1 mL 5000 UNIT SUBCUT (23:53)
[2022-08-26] VITALS (61 sets, daily range): BP systolic 83–164; BP diastolic 54–117; PULSE 84–139; RESP 13–45; TEMP 36.6; O2SAT 84–99
[2022-08-26 01:21] LABS: Basophils # 0.1 10^3/uL (0.0-0.1); Basophils % 0.3 %; Eosinophils % 0.1 %; Hematocrit 34.7 % (42.0-52.0); Hemoglobin 10.5 g/dL (11.7-16.6); Lymphocytes # 2.8 10^3/uL (0.8-4.8); Lymphocytes % 9.4 %; Mean Corpuscular HGB Conc 30.3 g/dL (30.0-36.0); Mean Corpuscular Hemoglobin 23.9 pg (28.0-34.0); Mean Corpuscular Volume 78.9 fl (80-94); Mean Platelet Volume 11.3 fL (7.4-10.4); Monocytes # 2.9 10^3/uL (0.2-0.9); Monocytes % 9.7 %; Neutrophils # 23.02 10^3/uL (1.8-7.7); Nucleated Red Blood Cells % 0.1 %; Platelet Count 515 10^3/cmm (130-400); Red Cell Distribution Width 17.2 % (12.1-15.1); White Blood Count 29.5 10^3/uL (4.0-10.0)
[2022-08-26 01:42] LABS: Troponin 5 6HR 69.54 ng/L (0-15)
[2022-08-26 01:44] LABS: Troponin 5 6HR Delta 3.54 ng/L (0-12)
[2022-08-26 01:45] LABS: Anion Gap 22.8 (5-19); Blood Urea Nitrogen 78 mg/dL (8-23); Calcium 7.5 mg/dL (8.5-10.5); Carbon Dioxide 24 mmol/L (22-29); Chloride 93 mmol/L (98-107); Glomerular Filtration Rate 11.1 mL/min (90-130); Glucose 111 mg/dL (65-115); Osmolality Calculated 304 mOsm/kg (285-295); Potassium 4.8 mmol/L (3.5-5.1); Sodium 135 mmol/L (136-145)
[2022-08-26] MEDS: levalbuterol 0.63 mg/3 mL Neb INHALATION ×4 (02:25→20:24)
[2022-08-26] MEDS: ipratropium 0.5 mg/2.5 mL Neb INHALATION ×4 (02:25→20:24)
[2022-08-26] MEDS: sucralfate 1 gm Tablet PO ×2 (06:51→20:47)
[2022-08-26] MEDS: metoprolol tartrate 25 mg Tablet PO (08:08)
[2022-08-26] MEDS: lidocaine 5% Patch 1 PATCH TOPICAL ×2 (08:08→20:47)
[2022-08-26] MEDS: pantoprazole 40 mg SDV IVP ×2 (08:09→20:47)
[2022-08-26] MEDS: aspirin 81 mg EC Tablet PO (08:09)
[2022-08-26] MEDS: budesonide 0.5 mg/2 mL Neb INHALATION ×2 (09:27→20:24)
--- NOTE | 2022-08-26 11:51 | P.PN_ITS ---
Subjective Subjective: Right lower lobe infiltrate, my concern is related to dense consolidation Self interpretation of chest x-ray Chronic aspiration? Patient is stating that he was anxious yesterday but today he is feeling better Family is at the bedside A-fib RVR Currently on 5 L nasal cannula Awaiting permacath placement marketing intelligence manager updated Troponin without significant delta No active chest pain or shortness of breath Overnight events Currently on amiodarone drip to be transitioned to p.o. regimen around 6 PM Vitals/I&O/Wt Last Vital Signs Temp 97.9 F 08/26/22 04:00 Pulse 104 H 08/26/22 08:55 Resp 18 08/26/22 08:55 BP 123/68 08/26/22 08:30 Pulse Ox 93 08/26/22 08:55 O2 Del Method 08/26/22 08:55 O2 Flow Rate 5 08/26/22 08:55 FiO2 40 08/25/22 20:54 08/25/22 08/26/22 08/26/22 22:59 06:59 14:59 Intake Total 500 / 1140 766.018 / 1906.018 354 / 354 Output Total 1799 / 1799 50 / 1849 Balance -1299 / -659 716.018 / 57.018 354 / 354 Weight last 48 hrs Weight 163 kg Weight 163 kg Weight 153.8 kg Physical Exam Narrative: Morbidly obese Fluid overloaded Currently on 5 L Temporary dialysis catheter in place right groin Awake and alert LIVEMIMARIA GUADALUPE Family at the bedside Variable S1-S2 A-fib RVR GCS 15 Urinary Catheter Management: Blake: Cath Placed During This Visit: yes Reason for Continuing Indwelling Catheter: Accurate Measurement of Urinary Output in Critically Ill Patients Urinary Catheter Date of Insertion: 08/20/22 Urinary Catheter Time of Insertion: 21:16 Data 08/26/22 00:58 08/26/22 00:58 Micro: Microbiology 08/24/22 17:10 Gram Stain - Final Sputum - Expectorated Sputum Sputum Culture - Final 08/20/22 18:42 Blood Culture - Final Blood NO GROWTH AFTER 5 DAYS 08/20/22 18:25 Blood Culture - Final Blood NO GROWTH AFTER 5 DAYS A&P Assessment and plan (1) Acute encephalopathy: (2) GI bleed: (3) Acute respiratory failure with hypoxia: (4) Hyperkalemia: (5) Atrial fibrillation: (6) Pyelonephritis of left kidney: (7) UTI (urinary tract infection): (8) COPD (chronic obstructive pulmonary disease): Qualifiers: COPD type: COPD with acute exacerbation Qualified Code(s): J44.1 - Chronic obstructive pulmonary disease with (acute) exacerbation (9) ESRD (end stage renal disease): Plan 2 rapid responses were called yesterday for his A-fib RVR he was transitioned ba ck to ICU Currently on amiodarone drip which we will transition to p.o. regimen around 6 PM Without significant delta troponin EKG showing A-fib No active chest pain Metabolic encephalopathy related to sepsis due to pneumonia: Resolved End-stage renal disease, Dr. Dominguez will do located within [facility] marketing intelligence manager updated for chair time approval Acute on chronic hypoxia My concern is related to chronic aspiration that is evident on his x-ray with dense consolidation right lower lobe Requested speech therapy Continue antibiotics I will continue IV antibiotics considering aspiration events Afebrile Cultures negative Intermittent A-fib Metoprolol to be discontinued Using amiodarone now Reported GI bleed in the past not on Eliquis Full code Continue ICU management Diarrhea: Improved Attestations Medical Necessity Statement*: Continue ICU management Diagnoses Acute encephalopathy G93.40 GI bleed K92.2 Acute respiratory failure with hypoxia J96.01 Hyperkalemia E87.5 Atrial fibrillation I48.91 Pyelonephritis of left kidney N12 UTI (urinary tract infection) N39.0 COPD (chronic obstructive pulmonary disease) J44.1 COPD type: COPD with acute exacerbation ESRD (end stage renal disease) N18.6
[2022-08-26] MEDS: piperacillin-tazobactam 3.375 GM in sodium chloride 0.9% (plus) 50 ML IV ×2 (12:36→21:31)
[2022-08-26] MEDS: heparin 5,000 unit/mL INJ 1 mL 5000 UNIT SUBCUT (12:36)
--- NOTE | 2022-08-26 13:19 | P.PN_ITS ---
Subjective Subjective: Patient was transferred to medical floor yesterday after which she had an episode of A-fib RVR while getting dialysis Rapid response was called and patient was transferred back to ICU and started on amiodarone drip Today rate appears to be more controlled and patient is less anxious Currently is requiring 5 L nasal cannula He is sitting out of bed to chair and appears comfortable He is scheduled to get permacath placement today evening Other labs and imaging reviewed Medications: Reviewed: Yes Vitals/I&O/Wt Last Vital Signs Temp 97.9 F 08/26/22 04:00 Pulse 94 08/26/22 13:00 Resp 23 H 08/26/22 13:00 BP 104/61 08/26/22 12:00 Pulse Ox 94 08/26/22 12:30 O2 Del Method 08/26/22 08:55 O2 Flow Rate 5 08/26/22 08:55 FiO2 40 08/25/22 20:54 08/25/22 08/26/22 08/26/22 22:59 06:59 14:59 Intake Total 500 / 1140 766.018 / 1906.018 354 / 354 Output Total 1799 / 1799 50 / 1849 Balance -1299 / -659 716.018 / 57.018 354 / 354 Weight last 48 hrs Weight 359 lb 5.655 oz Weight 359 lb 5.655 oz Weight 339 lb 1.135 oz Physical Exam Narrative: General: Morbidly obese, alert and following commands HEENT: conj clear, legally blind, PERRL, mmm, Neck: supple, no meningismus Heme: no cervical LAP Respiratory: Inspection: No visible deformity of the chest wall Palpation: Trachea is mildly deviated to the right, bilateral symmetric expansion Percussion: Bilateral tympanic percussion note both anterior and posteriorly Auscultation: Bilateral clear to auscultation both anterior and posteriorly, no crackles wheezing or rhonchi Cardiovascular: rrr, nl s1s2, no mrg Abdomen: soft, nt, nd, no r/g, bs+ Extremities: pulses +, 1+ pedal edema, no c/c : no CVA tenderness Skin: intact, no rash MSK: no back or neck pain Neurologic: grossly intact Urinary Catheter Management: Blake: Cath Placed During This Visit: yes Reason for Continuing Indwelling Catheter: Accurate Measurement of Urinary Output in Critically Ill Patients Urinary Catheter Date of Insertion: 08/20/22 Urinary Catheter Time of Insertion: 21:16 Data 08/26/22 00:58 08/26/22 00:58 Other Labs: Radiology Impressions: Entire Visit Chest X-Ray 08/20/22 16:13 IMPRESSION: Cardiomegaly with bibasilar opacities more pronounced at the left lung base concerning for pneumonia. Chest/Abdomen/Pelvis CT 08/20/22 18:13 IMPRESSION: 1. Bilateral dependent atelectasis versus infiltrate. 2. Several chronic posterior left rib fractures. 3. Scattered enlarged mediastinal lymph nodes measuring up to 15 mm, similar to prior exam, nonspecific. 4. Cardiomegaly. 5. Trace pericardial effusion. 6. Coronary artery atherosclerotic calcifications. IMPRESSION: 1. Mildly prominent fluid in the small bowel without dilation may reflect an enteritis. 2. Several hepatic cysts. 3. Left kidney punctate nonobstructing renal calyceal stone. 4. Perinephric edema likely reflecting renal insufficiency, please correlate for possible pyelonephritis. 5. Umbilical hernia containing omentum without bowel. 6. Left kidney exophytic 14 mm probable cyst, appears somewhat hyperdense, further evaluation with nonemergent renal ultrasound advised to evaluate for suspected cystic versus potentially solid nature. Venous Duplex 08/21/22 14:54 IMPRESSION: No evidence of deep vein thrombosis. Chest X-Ray 08/21/22 15:15 IMPRESSION: Cardiomegaly with bibasilar opacities more pronounced at the left lung base consistent with patchy atelectasis but concerning for pneumonia. Clinical correlation and laboratory assessment recommended. Chest X-Ray 08/22/22 07:00 IMPRESSION: 1. Left lung base is obscured. Possible increasing atelectasis or consolidation and/or pleural fluid versus differences in radiographic projection. 2. Persistent mild opacity in the right lung base suggesting atelectasis. Chest X-Ray 08/25/22 17:15 IMPRESSION: 1. No acute findings. 2. Right lower lobe atelectasis Micro: Microbiology 08/24/22 17:10 Gram Stain - Final Sputum - Expectorated Sputum Sputum Culture - Final 08/20/22 18:42 Blood Culture - Final Blood NO GROWTH AFTER 5 DAYS 08/20/22 18:25 Blood Culture - Final Blood NO GROWTH AFTER 5 DAYS A&P Assessment and plan (1) Acute respiratory failure with hypoxia: (2) CHF (congestive heart failure): (3) EDWIN (acute kidney injury): (4) Sepsis: (5) Coronary artery disease: (6) History of type 2 diabetes mellitus: (7) COPD (chronic obstructive pulmonary disease): Qualifiers: COPD type: COPD with acute exacerbation Qualified Code(s): J44.1 - Chronic obstructive pulmonary disease with (acute) exacerbation (8) Atrial fibrillation: Plan overall: 67-year-old male with significant past medical history of COPD, NATHALY on CPAP, morbid obesity, CKD, CAD, CHF, atrial fibrillation presented to emergency room for central chest pain relieved with nitroglycerin-admitted to ICU for close monitoring for developed hypotensive episodes as well as A-fib RVR, presumed sepsis secondary to pyelonephritis versus left lower lobe pneumonia, worsening renal function requiring hemodialysis NEURO: #No issues PULM: #Acute hypoxic respiratory failure -Patient has history of COPD and NATHALY on CPAP -Baseline home oxygen is 2 L at home -Currently requiring 5 L nasal cannula -Imaging suggestive of left lower lobe infiltrate suspicious for pneumonia- currently on Zosyn-can discontinue after total 10 days treatment -With worsening renal functions and the intermittent A-fib and underlying CHF-I am concerned about patient getting fluid overloaded and probably going to respiratory failure -Monitor mentation and saturations-keep low threshold for intubation -I will recommend a chest physiotherapy 3 times a day-please discharge patient with chest vest -Encouraged to stay out of bed to chair and do physical therapy #COPD-currently does not appear to be in exacerbation -Recommended DuoNeb nebulization as needed CVS: #Intermittent A-fib RVR- -Started on amiodarone drip-plan is to transition to p.o. amiodarone today evening -Currently on metoprolol -He was on home Eliquis which was stopped secondary to GI bleed #Hypotensive episodes-likely from intermittent A-fib RVR versus septic shock secondary to pneumonia/pyelonephritis -Currently is not on any pressors GI: #Diet: soft diet with aspiration precautions . #GI prophylaxis: PPI #LFTs within normal limits RENAL: #EDWIN on CKD likely secondary to pyelonephritis/ATN secondary to hypotensive episodes #Hyperkalemia resistant to medical management - had HD and today 4.5 -Nephrology on board and pt receiving hemodialysis - will go for permath -Monitor electrolytes, renal functions, urine output HEM: #Leukocytosis-secondary to possible UTI/pneumonia #Low H&H-suspect GI bleed-no active bleeding-monitor H&H -Platelets normal ENDO: #Moderately controlled sugars-nondiabetic and does not need insulin coverage ID: #CT evidence of suspected pyelonephritis #Chest imaging suspicious for left lower lobe infiltrates suspicious for pne umonia --MRSA nares negative-discontinued vancomycin -Legionella and other urine bacterial antigens are negative -Blood cultures are negative -Currently on Zosyn-complete 10-day course Code Status: Full Disposition: ICU Critically ill: Yes MD discussed with: Patient, hospitalist, RN, RT ICU CHECKLIST: Problem list updated Verbal orders reviewed and signed Analgesia: Opioid Glycemic Control: N/A Nutrition: Soft with aspiration precautions Restraint Renewal (within 24 hrs): N/A Ulcer Prophylaxis: PPI Chemical Thromboprophylaxis: Prophylaxis: Heparin Mechanical Thromboprophylaxis: SCDs Need for Central line: N/A Need for Blake catheter: Yes for urine output monitoring Attestations Medical Necessity Statement*: A-fib RVR can transfer out of ICU once transition to p.o. Time Spent in Patient Care: Greater than 35 minutes (>than 50% of time spen t in counselling and/or direct pt care on unit) . Critical Care Time: This patient has a high probability of? clinically significant, sudden or life threatening deterioration of the patient's (pulmonary, renal, cardiac, hemodynamic) systems required my full, direct attention, the highest level of physician preparedness for urgent intervention and personal management.? I managed/supervised life or organ supporting interventions that required frequent physician assessment.? I devoted my full attention in the ICU to the direct care of this patient for the period of time indicated above.? Time I spent with family or surrogate(s) is included only if the patient was incapable of providing necessary information or participating in decision making.? This time includes the following services provided: Telemetry review Mechanical Ventilation Hemodynamic interpretation, assessment and management Review and interpretation of CXR Review and interpretation of lab values Review and interpretation of microbiologic data and culture results Review of medications and administration Review and interpretation of Nutrition requirements and management Discussion of management with other consultants and services Clinical update to family members [x] Data and vital sign review and interpretation [x] Patient assessment, examination and intervention [x] Documentation [x] Medication orders and management Time spent for teaching as well as performing procedures are billed separately and is not included in this note ? Critical Care Time (min): 51 Coding Level of Care Code Critical Care >/= 30 minutes Diagnoses Acute respiratory failure with hypoxia J96.01 CHF (congestive heart failure) I50.9 EDWIN (acute kidney injury) N17.9 Sepsis A41.9 Coronary artery disease I25.10 History of type 2 diabetes mellitus Z86.39 COPD (chronic obstructive pulmonary disease) J44.1 COPD type: COPD with acute exacerbation Atrial fibrillation I48.91
[2022-08-26] MEDS: TRAMadol 50 mg Tablet PO (15:24)
[2022-08-26] MEDS: sodium polystyrene sulfonate 15 gm/60 mL Btl PO (17:08)
[2022-08-26] MEDS: amiodarone 200 mg Tablet PO (17:08)
--- NOTE | 2022-08-26 17:30 | PM.CONSULT ---
Providers/Reason For Consult Consulting Physician/Specialty*: Dr. Scotty Dominguez, DO/General surgery Reason for Consult*: Permacath placement Attending Physician: Delmar Ho MD Primary Care Provider: Lovely Ivey MD History of Present Illness History of Present Illness Artie Quiles is a 67 year old male who originally presented to the ER with chest pain was found to be in A-fib with RVR as well as having pyelonephritis. He was started on hemodialysis via a temporary hemodialysis catheter while in the hospital. Nephrology determined that he needs long-term hemodialysis. General surgery was consulted for permacath placement. Review of Systems General: Reports: 10 or more systems reviewed and unremarkable except in HPI and below Medications/Allergies Home Medications Medication Instructions Recorded Confirmed Last Taken Type apixaban 5 mg tablet 5 mg PO BID 11/27/20 08/21/22 Unknown History aspirin 81 mg tablet,delayed 81 mg PO DAILY 11/27/20 08/21/22 Unknown History release (Adult Low Dose Aspirin) atorvastatin 80 mg tablet 40 mg PO DAILY 11/27/20 08/21/22 Unknown History cholecalciferol (vitamin D3) 50 50 mcg PO DAILY 11/27/20 08/21/22 Unknown History mcg (2,000 unit) capsule docusate sodium 100 mg capsule 100 mg PO BID PRN Constipation 11/27/20 08/21/22 Unknown History lisinopril 20 mg tablet 10 mg PO DAILY 11/27/20 08/21/22 Unknown History metformin 1,000 mg tablet 1,000 mg PO BID 11/27/20 08/21/22 Unknown History nitroglycerin 0.4 mg sublingual 0.4 mg sublingual Q5M PRN Chest 11/27/20 08/21/22 Unknown History tablet Pain omeprazole 20 mg capsule,delayed 20 mg PO DAILY 11/27/20 08/21/22 Unknown History release polyethylene glycol 3350 17 17 g PO DAILY PRN Constipation 11/27/20 08/21/22 Unknown History gram/dose oral powder pregabalin 150 mg capsule 150 mg PO BID 11/27/20 08/21/22 Unknown History inhalational spacing device (Allan #1 ea 05/20/21 08/21/22 Unknown Rx Aerosol [place] Enhancer spacer) multivitamin 1 tab PO DAILY 08/11/21 08/21/22 Unknown History metoprolol tartrate 50 mg tablet 50 mg PO BID #240 tabs 04/28/22 08/21/22 Unknown Rx guaifenesin 600 mg tablet, 600 mg PO Q12H PRN congestion #60 05/26/22 08/21/22 Unknown Rx extended release 12 hr (Mucinex) tabs albuterol sulfate 90 mcg/actuation 1 inh inhalation QID PRN shortness 06/17/22 08/21/22 Unknown Rx aerosol inhaler (Ventolin HFA) of breath or wheezing #8.5 grams budesonide-formoterol HFA 160 2 puff inhalation BID #10.2 grams 06/17/22 08/21/22 Unknown Rx mcg-4.5 mcg/actuation aerosol inhaler (Symbicort) ipratropium 0.5 mg-albuterol 3 mg 3 ml inhalation Q4H PRN wheezing 06/17/22 08/21/22 Unknown Rx (2.5 mg base)/3 mL nebulization #90 mL soln ipratropium bromide 0.02 % 2.5 ml inhalation Q6H PRN 06/17/22 08/21/22 Unknown History solution for inhalation Shortness Of Breath Or Wheezing tiotropium bromide 18 mcg capsule 1 cap inhalation DAILY #30 06/17/22 08/21/22 Unknown Rx with inhalation device (Spiriva inhalations with HandiHaler) nebulizer accessories #1 ea 06/18/22 08/21/22 Unknown Rx sodium chloride 3 % for 4 ml inhalation BID PRN congestion 06/18/22 08/21/22 Unknown Rx nebulization #240 mL albuterol sulfate 2.5 mg/3 mL 2.5 mg inhalation Q4H PRN 08/21/22 08/21/22 Unknown History (0.083 %) solution for nebulization Shortness Of Breath Or Wheezing ascorbic acid (vitamin C) 500 mg 1,000 mg PO DAILY 08/21/22 08/21/22 Unknown History tablet (Vitamin C) diltiazem HCl 120 mg 120 mg PO DAILY 08/21/22 08/21/22 Unknown History tablet,extended release 24 hr ferrous gluconate 324 mg (38 mg 324 mg PO DAILY 08/21/22 08/21/22 Unknown History iron) tablet fluticasone propionate 50 1 spray intranasal DAILY 08/21/22 08/21/22 Unknown History mcg/actuation nasal spray,suspension furosemide 80 mg tablet 80 mg PO BID 08/21/22 08/21/22 Unknown History lidocaine 5 % topical ointment 1 applic topical DAILY PRN Pain 08/21/22 08/21/22 Unknown History loratadine 10 mg tablet 10 mg PO DAILY 08/21/22 08/21/22 Unknown History naloxone 4 mg/actuation nasal spray 4 mg intranasal Q3M PRN Opioid 08/21/22 08/21/22 Unknown History Overdose propranolol 80 mg tablet 40 mg PO TID 08/21/22 08/21/22 Unknown History tamsulosin 0.4 mg capsule 0.4 mg PO DAILY 08/21/22 08/21/22 Unknown History vit C 250 mg-vit E 90 mg-zinc 40 1 tab PO BID 08/21/22 08/21/22 Unknown History mg-copper 1 [id number] capsule (PreserVision AREDS-2) zinc gluconate 50 mg tablet 50 mg PO DAILY 08/21/22 08/21/22 Unknown History Allergies Allergy/AdvReac Type Severity Reaction Status Date / Time Iodinated Contrast Media Allergy Severe anaphylaxis Verified 08/21/22 09:44 Current Medications Generic Name Dose Route Start Last Admin Trade Name Freq PRN Reason Stop Dose Admin Acetaminophen 650 mg 08/20/22 22:08 08/25/22 15:38 Acetaminophen 325 Mg Tablet PO 650 mg Q6H PRN Administration Mild/Mod Pain Or Temp >/= 101 Albuterol/Ipratropium 3 ml 08/20/22 22:08 08/25/22 20:41 Ipratropium-Albuterol 3 Ml Neb INHALATION 3 ml Q4H PRN Administration SHORTNESS OF BREATH Amiodarone HCl 200 mg 08/26/22 18:00 08/26/22 17:08 Amiodarone 200 Mg Tablet PO 200 mg BID SHANTE Administration Aspirin 81 mg 08/21/22 09:00 08/26/22 08:09 Aspirin 81 Mg Ec Tablet PO 81 mg DAILY SHANTE Administration Budesonide 0.5 mg 08/21/22 09:00 08/26/22 20:24 Budesonide 0.5 Mg/2 Ml Neb INHALATION 0.5 mg BID.RESPIRATORY SHANTE Administration Heparin Sodium (Porcine) 10,000 unit 08/23/22 03:34 08/23/22 03:37 Heparin, Porcine 1,000 Unit/Ml Inj 10 Ml HE 10,000 unit PRN PRN Administration dialysis Heparin Sodium (Porcine) 5,000 unit 08/25/22 12:15 08/27/22 00:07 Heparin 5,000 Unit/Ml Inj 1 Ml SUBCUT 5,000 unit Q12H SHANTE Administration Piperacillin Sod/Tazobactam 50 mls @ 12.5 mls/hr 08/25/22 10:00 08/27/22 01:54 Sod 3.375 gm/ Sodium Chloride IV Infused Q12H SHANTE Infusion Protocol Amiodarone HCl 900 mg/ 518 mls @ 0 mls/hr 08/25/22 18:15 08/26/22 19:03 Dextrose/ IV Miscellaneous IV Infused Supplies .Q0M SHANTE Titration Protocol Per Protocol Ipratropium [place] 0.5 mg 08/21/22 14:15 08/27/22 02:57 Ipratropium 0.5 Mg/2.5 Ml Neb INHALATION 0.5 mg Q6H SHANTE Administration Levalbuterol HCl 0.63 mg 08/21/22 20:00 08/27/22 02:57 Levalbuterol 0.63 Mg/3 Ml Neb INHALATION 0.63 mg Q6H.RESP SHANTE Administration Lidocaine 1 patch 08/20/22 22:08 08/26/22 20:47 Lidocaine 5% Patch TOPICAL 1 patch [id number] SHANTE Administration Ondansetron HCl 4 mg 08/20/22 22:08 08/25/22 18:20 Ondansetron 2 Mg/Ml Sdv 2 Ml IVP 4 mg Q8H PRN Administration vomiting, or N/V if npo Pantoprazole Sodium 40 mg 08/20/22 20:30 08/26/22 20:47 Pantoprazole 40 Mg Sdv IVP 40 mg Q12H SHANTE Administration Sodium Polystyrene Sulfonate 15 gm 08/22/22 17:00 08/27/22 05:22 Sodium Polystyrene Sulfonate 15 Gm/60 Ml Btl PO Not Given Q12H SHANTE Sucralfate 1 gm 08/21/22 07:45 08/27/22 06:48 Sucralfate 1 Gm Tablet PO 1 gm Q12H SHANTE Administration Tramadol HCl 50 mg 08/25/22 15:30 08/26/22 15:24 Tramadol 50 Mg Tablet PO 50 mg Q6H PRN Administration MODERATE PAIN PFSH Acute PFSH: Medical History Atrial fibrillation CHF (congestive heart failure) COPD (chronic obstructive pulmonary disease) 2L Coronary artery disease History of type 2 diabetes mellitus Hyperlipidemia Hypertension Legally blind NATHALY (obstructive sleep apnea) Nightly CPAP Septic shock Surgical History History of heart artery stent Social History Smoking and tobacco status: former smoker Quit status (tobacco): has quit using tobacco Year quit tobacco: August 2020 [id number] Second hand smoke exposure: Yes Smoking risk assessment/counseling performed?: Yes Alcohol intake: never Caregiver/support person: Yes Lives independently: Yes Household members: significant other Marital status: service: Yes Current occupational status: retired and disabled Pets and animals: Yes Current gender identity: Male Vitals/I&O/Wt Last Vital Signs Temp 97.9 F 08/27/22 04:00 Pulse 105 H 08/27/22 04:00 Resp 22 H 08/27/22 04:00 BP 136/68 08/27/22 04:00 Pulse Ox 93 08/27/22 04:00 O2 Del Method 08/27/22 02:58 O2 Flow Rate 5 08/26/22 20:30 FiO2 40 08/27/22 02:59 08/26/22 08/27/22 08/27/22 22:59 06:59 14:59 Intake Total 811.982 / 1165.982 50 / 1215.982 Output Total 100 / 100 Balance 711.982 / 1065.982 50 / 1115.982 Weight last 48 hrs Weight 359 lb 5.655 oz Weight 359 lb 5.655 oz Physical Exam Narrative: General : Patient is well developed , no acute distress, oriented x3 Head : Normal cephalic, a-traumatic. Ears : Pinnae and external canal are normal. Hearing is normal. Eyes : PERRLA, Sclera and injection are normal. No conjunctival discharge. Nose : Mucous membranes are without erythema. Throat : buccal mucosa is normal, gums are without significant recession or hypertrophy. Lungs : Equal chest rise bilaterally, no use of accessory muscles, trachea is midline. Cor : Rate and rhythm are normal. Abdomen : Soft, ND, NT, no g/r/m Extremities : No edema, no cyanosis or clubbing, dorsalis pedis pulses are present bilaterally, non-tender to palpation of calves. Upper extremities are normal bilaterally. Back : non-tender to palpation, no CVA tenderness. Neuro : CN II - XII intact, Upper and lower extremities have equal and full strength Urinary Catheter Management: Blake: Cath Placed During This Visit: yes Reason for Continuing Indwelling Catheter: Accurate Measurement of Urinary Output in Critically Ill Patients Urinary Catheter Date of Insertion: 08/20/22 Urinary Catheter Time of Insertion: 21:16 Data 08/27/22 03:52 08/27/22 03:52 Micro: Microbiology 08/26/22 19:45 Occult Blood (FIT) - Final Stool - Stool Aspirate 08/24/22 17:10 Gram Stain - Final Sputum - Expectorated Sputum Sputum Culture - Final A&P Assessment and plan (1) ESRD (end stage renal disease): Plan Permacath placement The risks and benefits of the procedure, including but not limited to, bleeding, infection, infection requiring Mediport removal antibiotic therapy and repeat surgery, damage to surrounding structures, scar, numbness, pain, pneumothorax requiring thoracostomy tube, were explained to the patient. He/She is understanding of the risks and wishes to proceed. Coding Level of Care Code Acute Code for Chg Fwd Diagnoses ESRD (end stage renal disease) N18.6
--- NOTE | 2022-08-26 18:24 | PM.PN ---
Subjective Subjective: s/p rapid response yesterday A fib with RVR Medications: Reviewed: Yes Vitals/I&O/Wt Last Vital Signs Temp 97.9 F 08/26/22 04:00 Pulse 106 H 08/26/22 17:00 Resp 15 08/26/22 17:00 BP 83/57 08/26/22 15:00 Pulse Ox 90 08/26/22 17:00 O2 Del Method 08/26/22 13:50 O2 Flow Rate 5 08/26/22 13:50 FiO2 40 08/25/22 20:54 08/26/22 08/26/22 08/26/22 06:59 14:59 22:59 Intake Total 766.018 / 1906.018 354 / 354 360 / 714 Output Total 50 / 1849 Balance 716.018 / 57.018 354 / 354 360 / 714 Weight last 48 hrs Weight 163 kg Weight 163 kg Weight 153.8 kg Physical Exam Narrative: awake , alert on 5 L Fio2 + edema Urinary Catheter Management: Blake: Cath Placed During This Visit: yes Reason for Continuing Indwelling Catheter: Accurate Measurement of Urinary Output in Critically Ill Patients Urinary Catheter Date of Insertion: 08/20/22 Urinary Catheter Time of Insertion: 21:16 Data 08/26/22 00:58 08/26/22 00:58 Micro: Microbiology 08/24/22 17:10 Gram Stain - Final Sputum - Expectorated Sputum Sputum Culture - Final 08/20/22 18:42 Blood Culture - Final Blood NO GROWTH AFTER 5 DAYS 08/20/22 18:25 Blood Culture - Final Blood NO GROWTH AFTER 5 DAYS A&P Assessment and plan (1) EDWIN (acute kidney injury): Plan #1 acute kidney injury: Secondary to ATN from sepsis likely but patient has severe hyperkalemia despite medical management. . HD started . no sign of renal recovery yet ,plan to Place tunnelled catheter HD in Am #2 hyperkalemia: improved , low potassium diet #3 pyelonephritis: Antibiotics per primary team #4 acute respiratory failure: Multifactorial, antibiotics per primary team.wean O2 as tolerated #5 A fib with RVR Patient evaluated using audiovisual cart. Time spent 40 minutes Attestations Medical Necessity Statement*: Patient requires continued admission for fluid overload, pneumonia, acute renal failure, hyperkalemia, requiring dialysis, requiring BiPAP therapy, Coding Level of Care Code Acute Code for Chg Fwd Diagnoses EDWIN (acute kidney injury) N17.9
[2022-08-27] VITALS (40 sets, daily range): BP systolic 77–165; BP diastolic 44–117; PULSE 73–123; RESP 14–38; TEMP 36.5–36.7; O2SAT 75–99
[2022-08-27] MEDS: heparin 5,000 unit/mL INJ 1 mL 5000 UNIT SUBCUT ×2 (00:07→13:03)
[2022-08-27] MEDS: ipratropium 0.5 mg/2.5 mL Neb INHALATION ×2 (02:57→19:50)
[2022-08-27] MEDS: levalbuterol 0.63 mg/3 mL Neb INHALATION ×3 (02:57→19:52)
[2022-08-27 04:47] LABS: Basophils # 0.1 10^3/uL (0.0-0.1); Basophils % 0.2 %; Eosinophils # 0.5 10^3/uL (0.0-0.8); Eosinophils % 2.2 %; Hematocrit 30.8 % (42.0-52.0); Hemoglobin 9.2 g/dL (11.7-16.6); Lymphocytes # 3.9 10^3/uL (0.8-4.8); Lymphocytes % 15.9 %; Mean Corpuscular HGB Conc 29.9 g/dL (30.0-36.0); Mean Corpuscular Hemoglobin 23.5 pg (28.0-34.0); Mean Corpuscular Volume 78.8 fl (80-94); Mean Platelet Volume 11.4 fL (7.4-10.4); Monocytes # 2.2 10^3/uL (0.2-0.9); Neutrophils # 17.05 10^3/uL (1.8-7.7); Neutrophils % 70.6 %; Nucleated Red Blood Cells % 0 %; Platelet Count 451 10^3/cmm (130-400); Red Blood Count 3.91 10^6/uL (4.1-5.3); Red Cell Distribution Width 17.2 % (12.1-15.1); White Blood Count 24.2 10^3/uL (4.0-10.0)
[2022-08-27 05:06] LABS: Anion Gap 25.6 (5-19); Calcium 7.4 mg/dL (8.5-10.5); Carbon Dioxide 23 mmol/L (22-29); Chloride 87 mmol/L (98-107); Glomerular Filtration Rate 7.7 mL/min (90-130); Glucose 85 mg/dL (65-115); Osmolality Calculated 302 mOsm/kg (285-295); Potassium 4.6 mmol/L (3.5-5.1); Sodium 131 mmol/L (136-145)
[2022-08-27 05:18] LABS: Blood Urea Nitrogen 99 mg/dL (8-23)
[2022-08-27] MEDS: sucralfate 1 gm Tablet PO ×2 (06:48→19:59)
--- NOTE | 2022-08-27 07:10 | SC_ITS ---
WS: [id number] Exam: C-arm FL for CVA [id number] Date/Time of Exam: 08/27/2022 7:10 AM Reason For Exam: catheter placement A single intraoperative AP C-arm image of the right chest is submitted. The image depicts an opaque c atheter coursing along the right mediastinum which may represent an IJ central line. No other signifi cant finding on this limited study.
--- NOTE | 2022-08-27 08:10 | W.PM.OPSUD ---
Surgery/Procedure H&P Update DATE OF PROCEDURE: August 27, 2022 DATE H&P PERFORMED: 08/26/22 H&P UPDATE INFORMATION: I have reviewed H&P completed within last 30 days, I have examined patient prior to procedure and No changes to prior documentation PLANNED PROCEDURE: Operation Date: 08/27/22 10:45 Proposed Procedures p Portacath Placement(Not Applicable) - Scotty Dominguez DO
[2022-08-27] MEDS: metoprolol tartrate 25 mg Tablet PO (08:32)
[2022-08-27] MEDS: pantoprazole 40 mg SDV IVP ×2 (08:32→19:57)
[2022-08-27] MEDS: amiodarone 200 mg Tablet PO (08:32)
[2022-08-27] MEDS: aspirin 81 mg EC Tablet PO (08:32)
[2022-08-27] MEDS: budesonide 0.5 mg/2 mL Neb INHALATION ×2 (09:00→19:50)
--- NOTE | 2022-08-27 10:28 | PM.PN ---
Subjective Subjective: Plan for permacath today Patient is doing well His pulse ox has not been reading well, no active signs of cyanosis or shortness of breath, currently on 5 L nasal cannula Patient is stating instead of 2 L he has been using 3 to 4 L at home He will need another home O2 eval He will need outpatient physical therapy We are waiting on documentation for his chair time He might be able to go home later today versus tomorrow morning A-fib with RVR, added metoprolol to amiodarone Vitals/I&O/Wt Last Vital Signs Temp 97.9 F 08/27/22 04:00 Pulse 118 H 08/27/22 09:23 Resp 16 08/27/22 08:00 BP 136/68 08/27/22 04:00 Pulse Ox 85 L 08/27/22 09:21 O2 Del Method 08/27/22 08:00 O2 Flow Rate 5 08/26/22 20:30 FiO2 5 08/27/22 08:00 08/26/22 08/27/22 08/27/22 22:59 06:59 14:59 Intake Total 811.982 / 1165.982 50 / 1215.982 Output Total 100 / 100 Balance 711.982 / 1065.982 50 / 1115.982 Weight last 48 hrs Weight 163 kg Weight 163 kg Physical Exam Narrative: Patient is resting comfortably Currently on 5 L A-fib rate RVR Abdomen soft S1, S2 variable GCS 15 Clinical signs of fluid overload Chest congestion positive Urinary Catheter Management: Blake: Cath Placed During This Visit: yes Reason for Continuing Indwelling Catheter: Accurate Measurement of Urinary Output in Critically Ill Patients Urinary Catheter Date of Insertion: 08/20/22 Urinary Catheter Time of Insertion: 21:16 Data 08/27/22 03:52 08/27/22 03:52 Micro: Microbiology 08/26/22 19:45 Occult Blood (FIT) - Final Stool - Stool Aspirate 08/24/22 17:10 Gram Stain - Final Sputum - Expectorated Sputum Sputum Culture - Final A&P Assessment and plan (1) ESRD (end stage renal disease): (2) Acute encephalopathy: (3) Acute respiratory failure with hypoxia: (4) Atrial fibrillation: (5) Pneumonia: (6) Sepsis: (7) Pyelonephritis of left kidney: (8) UTI (urinary tract infection): (9) COPD (chronic obstructive pulmonary disease): Qualifiers: COPD type: COPD with acute exacerbation Qualified Code(s): J44.1 - Chronic obstructive pulmonary disease with (acute) exacerbation (10) Smoker: (11) History of heart artery stent: Plan Sepsis related to pneumonia and pyelonephritis: Resolved Metabolic encephalopathy related to sepsis: Resolved End-stage renal disease patient getting permacath today 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 Appreciate nephro recommendations A-fib RVR added amiodarone and metoprolol, he has contraindication for anticoagulation due to GI bleed, risk of stroke explained to the patient and his family Cultures remain negative Right-sided lower lobe infiltrate concern for aspiration pneumonia, speech therapy cleared him currently he is on none modified diet Temporal dialysis catheter will be removed He will be discharged back to home, he lives with his , Will need home O2 evaluation before discharge At home uses 3 to 4 L I will discontinue Zosyn and change to Augmentin for aspiration pneumonia Attestations Medical Necessity Statement*: Anticipate discharge later today versus tomorrow Diagnoses ESRD (end stage renal disease) N18.6 Acute encephalopathy G93.40 Acute respiratory failure with hypoxia J96.01 Atrial fibrillation I48.91 Pneumonia J18.9 Sepsis A41.9 Pyelonephritis of left kidney N12 UTI (urinary tract infection) N39.0 COPD (chronic obstructive pulmonary disease) J44.1 COPD type: COPD with acute exacerbation Smoker F17.200 History of heart artery stent Z95.5
--- NOTE | 2022-08-27 10:42 | PC.SOCIAL ---
IMM update IMM updated with patient and family at bedside. Verbalized an understanding. Copy Pg 2 provided. Initialled, dated, timed, and placed in chart.
[2022-08-27] MEDS: TRAMadol 50 mg Tablet PO ×3 (10:52→21:59)
--- NOTE | 2022-08-27 11:01 | PM.PN ---
Subjective Subjective: Denies any complaints, on 3 L FiO2, urine output still low Medications: Reviewed: Yes Vitals/I&O/Wt Last Vital Signs Temp 97.9 F 08/27/22 04:00 Pulse 118 H 08/27/22 09:23 Resp 16 08/27/22 08:00 BP 136/68 08/27/22 04:00 Pulse Ox 85 L 08/27/22 09:21 O2 Del Method 08/27/22 08:00 O2 Flow Rate 5 08/26/22 20:30 FiO2 5 08/27/22 08:00 08/26/22 08/27/22 08/27/22 22:59 06:59 14:59 Intake Total 811.982 / 1165.982 50 / 1215.982 Output Total 100 / 100 Balance 711.982 / 1065.982 50 / 1115.982 Weight last 48 hrs Weight 163 kg Weight 163 kg Physical Exam Narrative: Patient is awake alert no acute distress, 2+ pedal edema per report Urinary Catheter Management: Blake: Cath Placed During This Visit: yes Reason for Continuing Indwelling Catheter: Accurate Measurement of Urinary Output in Critically Ill Patients Urinary Catheter Date of Insertion: 08/20/22 Urinary Catheter Time of Insertion: 21:16 Data 08/27/22 03:52 08/27/22 03:52 Micro: Microbiology 08/26/22 19:45 Occult Blood (FIT) - Final Stool - Stool Aspirate 08/24/22 17:10 Gram Stain - Final Sputum - Expectorated Sputum Sputum Culture - Final A&P Assessment and plan (1) EDWIN (acute kidney injury): Plan #1 Acute kidney injury: Secondary to ATN from sepsis likely but patient has severe hyperkalemia despite medical management. . HD started . no sign of renal recovery yet ,plan to Place tunnelled catheter today. Plan for HD via tunneled catheter today -Need to arrange outpatient HD chair #2 hyperkalemia: improved , low potassium diet #3 pyelonephritis: Antibiotics per primary team #4 acute respiratory failure: Multifactorial, antibiotics per primary team.wean O2 as tolerated #5 A fib with RVR Patient evaluated using audiovisual cart. Time spent 40 minutes Attestations Medical Necessity Statement*: Anticipate discharge IN 1-2 DAYS Coding Level of Care Code Acute Code for Chg Fwd Diagnoses EDWIN (acute kidney injury) N17.9
--- NOTE | 2022-08-27 13:27 | ANES.PREANE2 ---
Pre-Anesthetic Assessment Height/Weight: Height 1.78 m Weight 163 kg Temp Pulse Resp BP Pulse Ox O2 Del Method O2 Flow Rate 97.9 F 120 H 25 H 114/55 90 5 08/27/22 04:00 08/27/22 11:30 08/27/22 11:30 08/27/22 11:00 08/27/22 11:30 08/27/22 08:00 08/26/22 20:30 FiO2 5 08/27/22 08:00 Preop Diagnosis: acute kidney injury Operation Date: 08/27/22 10:45 Proposed Procedures p Portacath Placement(Not Applicable) - Scotty Dominguez, DO Was Beta Angelica taken within 24 hours: Yes Was Clonidine taken within 24 hours: N/A Social No alcohol and No tobacco Exam alert, oriented x 3, clear to auscultation bilaterally and regular rate & rhythm Airway Submandibular: within normal limits Cervical ROM: within normal limits Mallampati: Class II Dentition: full Pulmonary Chronic Obstructive Pulmonary Disease and Shortness of Breath 3-4 L home 02 CV/HEM Atrial Fibrillation, Stable Angina, Congestive Heart Failure and Hypertension Chronic Renal Failure Hepatic None reported GI None reported Metabolic Diabetes Mellitus, Hyperlipidemia and Morbid Obesity [facility] [place] [place] [facility] None reported Neuropsych None reported Anesthetic Plan ASA status: 4 Anesthesia: Anesthesia Evaluation and General Risk of > 500 ml blood loss (7ml/kg in children): Yes, adequate IV access and fluids planned Medications/Allergies Home Medications Medication Instructions Recorded Confirmed Last Taken Type apixaban 5 mg tablet 5 mg PO BID 11/27/20 08/21/22 Unknown History aspirin 81 mg tablet,delayed 81 mg PO DAILY 11/27/20 08/21/22 Unknown History release (Adult Low Dose Aspirin) atorvastatin 80 mg tablet 40 mg PO DAILY 11/27/20 08/21/22 Unknown History cholecalciferol (vitamin D3) 50 50 mcg PO DAILY 11/27/20 08/21/22 Unknown History mcg (2,000 unit) capsule docusate sodium 100 mg capsule 100 mg PO BID PRN Constipation 11/27/20 08/21/22 Unknown History lisinopril 20 mg tablet 10 mg PO DAILY 11/27/20 08/21/22 Unknown History metformin 1,000 mg tablet 1,000 mg PO BID 11/27/20 08/21/22 Unknown History nitroglycerin 0.4 mg sublingual 0.4 mg sublingual Q5M PRN Chest 11/27/20 08/21/22 Unknown History tablet Pain omeprazole 20 mg capsule,delayed 20 mg PO DAILY 11/27/20 08/21/22 Unknown History release polyethylene glycol 3350 17 17 g PO DAILY PRN Constipation 11/27/20 08/21/22 Unknown History gram/dose oral powder pregabalin 150 mg capsule 150 mg PO BID 11/27/20 08/21/22 Unknown History inhalational spacing device (Allan #1 ea 05/20/21 08/21/22 Unknown Rx Aerosol Meagher Enhancer spacer) multivitamin 1 tab PO DAILY 08/11/21 08/21/22 Unknown History metoprolol tartrate 50 mg tablet 50 mg PO BID #240 tabs 04/28/22 08/21/22 Unknown Rx guaifenesin 600 mg tablet, 600 mg PO Q12H PRN congestion #60 05/26/22 08/21/22 Unknown Rx extended release 12 hr (Mucinex) tabs albuterol sulfate 90 mcg/actuation 1 inh inhalation QID PRN shortness 06/17/22 08/21/22 Unknown Rx aerosol inhaler (Ventolin HFA) of breath or wheezing #8.5 grams budesonide-formoterol HFA 160 2 puff inhalation BID #10.2 grams 06/17/22 08/21/22 Unknown Rx mcg-4.5 mcg/actuation aerosol inhaler (Symbicort) ipratropium 0.5 mg-albuterol 3 mg 3 ml inhalation Q4H PRN wheezing 06/17/22 08/21/22 Unknown Rx (2.5 mg base)/3 mL nebulization #90 mL soln ipratropium bromide 0.02 % 2.5 ml inhalation Q6H PRN 06/17/22 08/21/22 Unknown History solution for inhalation Shortness Of Breath Or Wheezing tiotropium bromide 18 mcg capsule 1 cap inhalation DAILY #30 06/17/22 08/21/22 Unknown Rx with inhalation device (Spiriva inhalations with HandiHaler) nebulizer accessories #1 ea 06/18/22 08/21/22 Unknown Rx sodium chloride 3 % for 4 ml inhalation BID PRN congestion 06/18/22 08/21/22 Unknown Rx nebulization #240 mL albuterol sulfate 2.5 mg/3 mL 2.5 mg inhalation Q4H PRN 08/21/22 08/21/22 Unknown History (0.083 %) solution for nebulization Shortness Of Breath Or Wheezing ascorbic acid (vitamin C) 500 mg 1,000 mg PO DAILY 08/21/22 08/21/22 Unknown History tablet (Vitamin C) diltiazem HCl 120 mg 120 mg PO DAILY 08/21/22 08/21/22 Unknown History tablet,extended release 24 hr ferrous gluconate 324 mg (38 mg 324 mg PO DAILY 08/21/22 08/21/22 Unknown History iron) tablet fluticasone propionate 50 1 spray intranasal DAILY 08/21/22 08/21/22 Unknown History mcg/actuation nasal spray,suspension furosemide 80 mg tablet 80 mg PO BID 08/21/22 08/21/22 Unknown History lidocaine 5 % topical ointment 1 applic topical DAILY PRN Pain 08/21/22 08/21/22 Unknown History loratadine 10 mg tablet 10 mg PO DAILY 08/21/22 08/21/22 Unknown History naloxone 4 mg/actuation nasal spray 4 mg intranasal Q3M PRN Opioid 08/21/22 08/21/22 Unknown History Overdose propranolol 80 mg tablet 40 mg PO TID 08/21/22 08/21/22 Unknown History tamsulosin 0.4 mg capsule 0.4 mg PO DAILY 08/21/22 08/21/22 Unknown History vit C 250 mg-vit E 90 mg-zinc 40 1 tab PO BID 08/21/22 08/21/22 Unknown History mg-copper 1 [id number] capsule (PreserVision AREDS-2) zinc gluconate 50 mg tablet 50 mg PO DAILY 08/21/22 08/21/22 Unknown History Allergies Allergy/AdvReac Type Severity Reaction Status Date / Time Iodinated Contrast Media Allergy Severe anaphylaxis Verified 08/21/22 09:44 Current Medications Generic Name Dose Route Start Last Admin Trade Name Freq PRN Reason Stop Dose Admin Acetaminophen 650 mg 08/20/22 22:08 08/25/22 15:38 Acetaminophen 325 Mg Tablet PO 650 mg Q6H PRN Administration Mild/Mod Pain Or Temp >/= 101 Albuterol/Ipratropium 3 ml 08/20/22 22:08 08/25/22 20:41 Ipratropium-Albuterol 3 Ml Neb INHALATION 3 ml Q4H PRN Administration SHORTNESS OF BREATH Aspirin 81 mg 08/21/22 09:00 08/27/22 08:32 Aspirin 81 Mg Ec Tablet PO 81 mg DAILY SHANTE Administration Budesonide 0.5 mg 08/21/22 09:00 08/27/22 09:00 Budesonide 0.5 Mg/2 Ml Neb INHALATION 0.5 mg BID.RESPIRATORY SHANTE Administration Diltiazem HCl 240 mg 08/27/22 11:00 08/27/22 12:16 Diltiazem Er (24hr) 240 Mg Capsule PO Not Given DAILY SHANTE Heparin Sodium (Porcine) 10,000 unit 08/23/22 03:34 08/23/22 03:37 Heparin, Porcine 1,000 Unit/Ml Inj 10 Ml HE 10,000 unit PRN PRN Administration dialysis Heparin Sodium (Porcine) 5,000 unit 08/25/22 12:15 08/27/22 13:03 Heparin 5,000 Unit/Ml Inj 1 Ml SUBCUT 5,000 unit Q12H SHANTE Administration Amiodarone HCl 900 mg/ 518 mls @ 0 mls/hr 08/25/22 18:15 08/26/22 19:03 Dextrose/ IV Miscellaneous IV Infused Supplies .Q0M SHANTE Titration Protocol Per Protocol Ipratropium [place] 0.5 mg 08/21/22 14:15 08/27/22 09:02 Ipratropium 0.5 Mg/2.5 Ml Neb INHALATION Not Given Q6H SHANTE Levalbuterol HCl 0.63 mg 08/21/22 20:00 08/27/22 09:00 Levalbuterol 0.63 Mg/3 Ml Neb INHALATION 0.63 mg Q6H.RESP SHANTE Administration Lidocaine 1 patch 08/20/22 22:08 08/27/22 08:32 Lidocaine 5% Patch TOPICAL Not Given [id number] SHANTE Ondansetron HCl 4 mg 08/20/22 22:08 08/25/22 18:20 Ondansetron 2 Mg/Ml Sdv 2 Ml IVP 4 mg Q8H PRN Administration vomiting, or N/V if npo Pantoprazole Sodium 40 mg 08/20/22 20:30 08/27/22 08:32 Pantoprazole 40 Mg Sdv IVP 40 mg Q12H SHANTE Administration Propranolol HCl 20 mg 08/27/22 10:55 08/27/22 12:16 Propranolol 20 Mg Tablet PO Not Given TID SHANTE Sodium Polystyrene Sulfonate 15 gm 08/22/22 17:00 08/27/22 05:22 Sodium Polystyrene Sulfonate 15 Gm/60 Ml Btl PO Not Given Q12H SHANTE Sucralfate 1 gm 08/21/22 07:45 08/27/22 06:48 Sucralfate 1 Gm Tablet PO 1 gm Q12H SHANTE Administration Tramadol HCl 50 mg 08/25/22 15:30 08/27/22 10:52 Tramadol 50 Mg Tablet PO 50 mg Q6H PRN Administration MODERATE PAIN PFSH Anesthesia Medical History Atrial fibrillation CHF (congestive heart failure) COPD (chronic obstructive pulmonary disease) 2L Coronary artery disease History of type 2 diabetes mellitus Hyperlipidemia Hypertension Legally blind NATHALY (obstructive sleep apnea) Nightly CPAP Septic shock Surgical History History of heart artery stent Social History Smoking and tobacco status: former smoker Quit status (tobacco): has quit using tobacco Year quit tobacco: August 2020 [id number] Second hand smoke exposure: Yes Smoking risk assessment/counseling performed?: Yes Alcohol intake: never Caregiver/support person: Yes Lives independently: Yes Household members: significant other Marital status: service: Yes Current occupational status: retired and disabled Pets and animals: Yes Current gender identity: Male Data Anesthesia 08/27/22 03:52 08/27/22 03:52 Short CBC 08/26/22 08/27/22 Range/Units 00:58 03:52 WBC 29.5 H 24.2 H (4.0-10.0) 10^3/uL Hgb 10.5 L 9.2 L (11.7-16.6) g/dL Hct 34.7 L 30.8 L (42.0-52.0) % MCV 78.9 L 78.8 L (80-94) fl Plt Count 515 H 451 H (130-400) 10^3/cmm Neut % (Auto) 78.0 70.6 % Neut # (Auto) 23.02 H 17.05 H (1.8-7.7) 10^3/uL BMP 08/25/22 08/26/22 08/27/22 18:18 00:58 03:52 Sodium 135 L 135 L 131 L Potassium 4.4 4.8 4.6 Chloride 92 L 93 L 87 L Carbon Dioxide BUN 71 H 78 H 99 H* Creatinine 4.1 H 5.2 H 7.1 H* Glucose 146 H 111 85 Calcium 7.7 L 7.5 L 7.4 L Cardiac Enzymes 08/25/22 08/25/22 08/26/22 Range/Units 18:18 20:23 00:58 Troponin T Baseline 66 H (0-15) ng/L Troponin T 120 Minute 68.76 H (0-15) ng/L Delta Troponin T 2.76 (0-10) ABS# Troponin T Hi Sens 6Hr 69.54 H (0-15) ng/L Troponin T Hi Sens 6Hr Delta 3.54 (0-12) ng/L ABG 08/25/22 16:54 Specimen Type Arterial Sample Site Radial, right ABG pH 7.35 ABG pCO2 39.0 ABG pO2 79.9 L ABG HCO3 21.7 L ABG O2 Saturation 95.4 ABG Base Excess -3.5 L A-a O2 Gradient 20.7 H O2 Delivery Device Bipap FiO2 40.0 Microbiology 08/26/22 19:45 Occult Blood (FIT) - Final Stool - Stool Aspirate 08/24/22 17:10 Gram Stain - Final Sputum - Expectorated Sputum Sputum Culture - Final Cardiac Studies: Echocardiogram 08/22/22
[2022-08-27] MEDS: lidocaine-epi 2% 20 mL INJ 8 ML INJECTION (14:20)
[2022-08-27] MEDS: heparin, porcine 1,000 unit/mL INJ 10 mL 5000 UNIT XX (14:36)
[2022-08-27] MEDS: heparin, porcine 1,000 unit/mL INJ 10 mL 10000 UNIT XX (14:38)
--- NOTE | 2022-08-27 14:40 | PM.PN ---
Subjective Subjective: pt is clinically is improved heart rate is well controlled with PO Amiodarone currently on 3L Nasal cannula scheduled to get HD catheter today occult blood positive - H and H remained stable - labs and imaging reviewed Medications: Reviewed: Yes Vitals/I&O/Wt Last Vital Signs Temp 97.9 F 08/27/22 04:00 Pulse 84 08/27/22 13:30 Resp 22 H 08/27/22 13:30 BP 100/55 08/27/22 13:30 Pulse Ox 93 08/27/22 13:30 O2 Del Method 08/27/22 08:00 O2 Flow Rate 5 08/26/22 20:30 FiO2 5 08/27/22 08:00 08/26/22 08/27/22 08/27/22 22:59 06:59 14:59 Intake Total 811.982 / 1165.982 50 / 1215.982 Output Total 100 / 100 Balance 711.982 / 1065.982 50 / 1115.982 Weight last 48 hrs Weight 359 lb 5.655 oz Weight 359 lb 5.655 oz Physical Exam Narrative: General: Morbidly obese, alert and following commands HEENT: conj clear, legally blind, PERRL, mmm, Neck: supple, no meningismus Heme: no cervical LAP Respiratory: Inspection: No visible deformity of the chest wall Palpation: Trachea is mildly deviated to the right, bilateral symmetric expansion Percussion: Bilateral tympanic percussion note both anterior and posteriorly Auscultation: Bilateral clear to auscultation both anterior and posteriorly, no crackles wheezing or rhonchi Cardiovascular: rrr, nl s1s2, no mrg Abdomen: soft, nt, nd, no r/g, bs+ Extremities: pulses +, 1+ pedal edema, no c/c : no CVA tenderness Skin: intact, no rash MSK: no back or neck pain Neurologic: grossly intact Urinary Catheter Management: Blake: Cath Placed During This Visit: yes Reason for Continuing Indwelling Catheter: Accurate Measurement of Urinary Output in Critically Ill Patients Urinary Catheter Date of Insertion: 08/20/22 Urinary Catheter Time of Insertion: 21:16 Data 08/27/22 03:52 08/27/22 03:52 Other Labs: Radiology Impressions Chest/Abdomen/Pelvis CT 08/20/22 18:13 IMPRESSION: 1. Bilateral dependent atelectasis versus infiltrate. 2. Several chronic posterior left rib fractures. 3. Scattered enlarged mediastinal lymph nodes measuring up to 15 mm, similar to prior exam, nonspecific. 4. Cardiomegaly. 5. Trace pericardial effusion. 6. Coronary artery atherosclerotic calcifications. IMPRESSION: 1. Mildly prominent fluid in the small bowel without dilation may reflect an enteritis. 2. Several hepatic cysts. 3. Left kidney punctate nonobstructing renal calyceal stone. 4. Perinephric edema likely reflecting renal insufficiency, please correlate for possible pyelonephritis. 5. Umbilical hernia containing omentum without bowel. 6. Left kidney exophytic 14 mm probable cyst, appears somewhat hyperdense, further evaluation with nonemergent renal ultrasound advised to evaluate for suspected cystic versus potentially solid nature. Venous Duplex 08/21/22 14:54 IMPRESSION: No evidence of deep vein thrombosis. Chest X-Ray 08/27/22 15:28 IMPRESSION: Interval placement of right central line, no pneumothorax or other acute abnormality. Laboratory Results WBC 24.2 10^3/uL (4.0-10.0) H 08/27/22 03:52 Corrected WBC Cancelled 08/22/22 05:33 RBC 3.91 10^6/uL (4.1-5.3) L 08/27/22 03:52 Hgb 9.2 g/dL (11.7-16.6) L 08/27/22 03:52 Hct 30.8 % (42.0-52.0) L 08/27/22 03:52 MCV 78.8 fl (80-94) L 08/27/22 03:52 MCH 23.5 pg (28.0-34.0) L 08/27/22 03:52 MCHC 29.9 g/dL (30.0-36.0) L 08/27/22 03:52 RDW 17.2 % (12.1-15.1) H 08/27/22 03:52 Plt Count 451 10^3/cmm (130-400) H 08/27/22 03:52 MPV 11.4 fL (7.4-10.4) H 08/27/22 03:52 Gran % Cancelled 08/22/22 05:33 Neut % (Auto) 70.6 % 08/27/22 03:52 Lymph % (Auto) 15.9 % 08/27/22 03:52 [place] % (Auto) 9.0 % 08/27/22 03:52 Eos % (Auto) 2.2 % 08/27/22 03:52 Baso % (Auto) 0.2 % 08/27/22 03:52 Neut # (Auto) 17.05 10^3/uL (1.8-7.7) H 08/27/22 03:52 Lymph # (Auto) 3.9 10^3/uL (0.8-4.8) 08/27/22 03:52 [place] # (Auto) 2.2 10^3/uL (0.2-0.9) H 08/27/22 03:52 Eos # (Auto) 0.5 10^3/uL (0.0-0.8) 08/27/22 03:52 Baso # (Auto) 0.1 10^3/uL (0.0-0.1) 08/27/22 03:52 Absolute Gran (auto) Cancelled 08/22/22 05:33 Nucleated RBC % (auto) 0 % 08/27/22 03:52 Nucleated RBCs # 0.0 /100WBC 08/27/22 03:52 PT 15.00 SECONDS (12.1-14.9) H 08/24/22 02:24 INR 1.14 (0.8-1.2) 08/24/22 02:24 Specimen Type Arterial 08/25/22 16:54 Sample Site Radial, right 08/25/22 16:54 ABG pH 7.35 (7.35-7.45) 08/25/22 16:54 ABG pCO2 39.0 mmHg (35-45) 08/25/22 16:54 ABG pO2 79.9 mmHg (80.0-100.0) L 08/25/22 16:54 ABG HCO3 21.7 mmol/L (22-26) L 08/25/22 16:54 ABG O2 Saturation 95.4 08/25/22 16:54 ABG Base Excess -3.5 mmol/L (-2.0-2.0) L 08/25/22 16:54 [place] Test Pos 08/25/22 16:54 A-a O2 Gradient 20.7 mmHg (5-10) H 08/25/22 16:54 Hematocrit 35.1 % (42-52) L 08/25/22 16:54 Hgb O2 Saturation 93.8 % (95-100) L 08/25/22 16:54 Carboxyhemoglobin 1.0 %THgb (0.4-20.1) 08/25/22 16:54 Methemoglobin 0.6 % (0.4-1.5) 08/25/22 16:54 Total Hemoglobin 11.4 g/dL (14-18) L 08/25/22 16:54 Sodium 136.0 mmol/L (131-143) 08/25/22 16:54 Potassium 4.3 mmol/L (3.5-5.0) 08/25/22 16:54 Glucose 121.0 mg/dL (70-115) H 08/25/22 16:54 Ionized Calcium 1.0 mmol/L (1.1-1.4) L 08/25/22 16:54 O2 Delivery Device Bipap 08/25/22 16:54 O2 Liters/Min 2.0 % 08/20/22 19:48 FiO2 40.0 % 08/25/22 16:54 Account Services Coordinator ID Cak 08/25/22 16:54 Sodium 131 mmol/L (136-145) L 08/27/22 03:52 Potassium 4.6 mmol/L (3.5-5.1) 08/27/22 03:52 Chloride 87 mmol/L (98-107) L 08/27/22 03:52 Carbon Dioxide 23 mmol/L (22-29) 08/27/22 03:52 Anion Gap 25.6 (5-19) H 08/27/22 03:52 BUN 99 mg/dL (8-23) H* 08/27/22 03:52 Creatinine 7.1 mg/dL (0.7-1.2) H* 08/27/22 03:52 GFR Calculation 7.7 mL/min (90-130) L 08/27/22 03:52 Glucose 85 mg/dL (65-115) 08/27/22 03:52 POC Glucose 139 mg/dL (70-110) H 08/25/22 17:58 Calculated Osmolality 302 mOsm/kg (285-295) H 08/27/22 03:52 Lactate 1.6 mmol/L (0.5-2.2) 08/24/22 02:24 Calcium 7.4 mg/dL (8.5-10.5) L 08/27/22 03:52 Phosphorus 7.8 mg/dL (2.5-4.5) H* 08/24/22 02:24 Magnesium 1.9 mg/dL (1.7-2.3) 08/25/22 18:18 Iron 11 ug/dL (59-158) L 08/21/22 10:05 TIBC 265 mcg/dl 08/21/22 10:05 % Saturation 4.1 % (20-50) L 08/21/22 10:05 Unsat Iron Binding 254 ug/dL (112-347) 08/21/22 10:05 Ferritin 16 ng/mL (30-400) L 08/21/22 10:05 Total Bilirubin 0.2 mg/dL (0.15-1.2) 08/25/22 03:33 AST 19 U/L (0-40) 08/25/22 03:33 ALT 25 U/L (0-41) 08/25/22 03:33 Alkaline Phosphatase 93 U/L (40-130) 08/25/22 03:33 Creatine Kinase 57 U/L (39-308) 08/21/22 10:05 Troponin T Baseline 66 ng/L (0-15) H 08/25/22 18:18 Troponin T 120 Minute 68.76 ng/L (0-15) H 08/25/22 20:23 Delta Troponin T 2.76 ABS# (0-10) 08/25/22 20:23 Troponin T Hi Sens 6Hr 69.54 ng/L (0-15) H 08/26/22 00:58 Troponin T Hi Sens 6Hr Delta 3.54 ng/L (0-12) 08/26/22 00:58 C-Reactive Protein 42.3 mg/L (0.0-4.9) H 08/24/22 02:24 NT-Pro-B Natriuret Pep 1944 pg/mL (0-125) H 08/24/22 02:24 Total Protein 6.2 g/dL (6.6-8.7) L 08/25/22 03:33 Albumin 3.3 g/dL (3.5-5.2) L 08/25/22 03:33 Globulin 2.9 g/dL (1.3-4.6) 08/25/22 03:33 Lipase 25 U/L (13-60) 08/20/22 16:33 Procalcitonin 0.18 ng/mL (0-0.5) 08/24/22 02:24 TSH 2.01 uIU/mL (0.27-4.20) 08/21/22 04:54 Urine Color Yellow (Yellow) 08/20/22 21:15 Urine Appearance Clear (CLEAR) 08/20/22 21:15 Urine pH 5 (5-7) 08/20/22 21:15 Ur Specific [place] 1.025 (1.005-1.030) 08/20/22 21:15 Urine Protein Trace (Negative) 08/20/22 21:15 Urine Glucose (UA) Norm (Normal) 08/20/22 21:15 Urine Ketones 1+ (Negative) H 08/20/22 21:15 Urine Blood Neg (Negative) 08/20/22 21:15 Urine Nitrate Negative (Negative) 08/20/22 21:15 Urine Bilirubin Neg (Negative) 08/20/22 21:15 Urine Urobilinogen 1 mg/dL (Negative) H 08/20/22 21:15 Ur Leukocyte Esterase Trace (Negative) H 08/20/22 21:15 Urine RBC 0-4 /hpf (0-2) H 08/20/22 21:15 Urine WBC 10-15 /hpf (0-5) H 08/20/22 21:15 Ur Squamous Epith Cells 0-4 /hpf (0-5) H 08/20/22 21:15 Calcium Oxalate Crystal 0-4 /hpf H 08/20/22 21:15 Amorphous Sediment Development Manager 08/20/22 21:15 Urine Bacteria 1+ /hpf (NONE) H 08/20/22 21:15 Ur Random Urea Nitrogn 253 mg/dL 08/20/22 23:00 Urine Creatinine 210 mg/dL (39-259) 08/20/22 23:00 Vancomycin Trough 23.9 ug/mL (10-15) H 08/24/22 15:05 Coronavirus 229E (PCR) Not detected (NOT DETECT) 08/20/22 23:00 Hep Bs Antigen Non-reactive (Nonreactive) 08/21/22 18:46 Hep Bs Antibody 3.5 (11.5-1000) L 08/21/22 18:46 Hep B Core Total Ab Non-reactive (Nonreactive) 08/21/22 18:46 Hepatitis C Antibody Non-reactive (Nonreactive) 08/21/22 18:46 SARS-CoV-2 (PCR) Not detected (NOT DETECT) 08/20/22 23:00 Micro: Microbiology 08/26/22 19:45 Occult Blood (FIT) - Final Stool - Stool Aspirate 08/24/22 17:10 Gram Stain - Final Sputum - Expectorated Sputum Sputum Culture - Final A&P Assessment and plan (1) Acute respiratory failure with hypoxia: (2) CHF (congestive heart failure): (3) EDWIN (acute kidney injury): (4) Sepsis: (5) Coronary artery disease: (6) History of type 2 diabetes mellitus: (7) COPD (chronic obstructive pulmonary disease): Qualifiers: COPD type: COPD with acute exacerbation Qualified Code(s): J44.1 - Chronic obstructive pulmonary disease with (acute) exacerbation (8) Atrial fibrillation: Plan overall: 67-year-old male with significant past medical history of COPD, NATHALY on CPAP, morbid obesity, CKD, CAD, CHF, atrial fibrillation presented to emergency room for central chest pain relieved with nitroglycerin-admitted to ICU for close monitoring for developed hypotensive episodes as well as A-fib RVR, presumed sepsis secondary to pyelonephritis versus left lower lobe pneumonia, worsening renal function requiring hemodialysis NEURO: #No issues PULM: #Acute hypoxic respiratory failure -Patient has history of COPD and NATHALY on CPAP -Baseline home oxygen is 2 L at home -Currently requiring 3 L nasal cannula -Imaging suggestive of left lower lobe infiltrate suspicious for pneumonia-currently on Zosyn-can discontinue after total 10 days treatment -With worsening renal functions and the intermittent A-fib and underlying CHF-I am concerned about patient getting fluid overloaded and probably going to respiratory failure -Monitor mentation and saturations-keep low threshold for intubation -I will recommend a chest physiotherapy 3 times a day-please discharge patient with chest vest -Encouraged to stay out of bed to chair and do physical therapy #COPD-currently does not appear to be in exacerbation -Recommended DuoNeb nebulization as needed CVS: #Intermittent A-fib RVR-controlled - p.o. amiodarone -Currently on metoprolol -He was on home Eliquis which was stopped secondary to GI bleed #Hypotensive episodes-likely from intermittent A-fib RVR versus septic shock secondary to pneumonia/pyelonephritis -Currently is not on any pressors GI: #Diet: soft diet with aspiration precautions . #GI prophylaxis: PPI #LFTs within normal limits RENAL: #EDWIN on CKD likely secondary to pyelonephritis/ATN secondary to hypotensive episodes #Hyperkalemia resistant to medical management - had HD and today 4.5 -Nephrology on board and pt receiving hemodialysis - will go for permath -Monitor electrolytes, renal functions, urine output HEM: #Leukocytosis-secondary to possible UTI/pneumonia #Low H&H-suspect GI bleed-no active bleeding-monitor H&H - occult blood positive - H and H remained stable -Platelets normal ENDO: #Moderately controlled sugars-nondiabetic and does not need insulin coverage ID: #CT evidence of suspected pyelonephritis #Chest imaging suspicious for left lower lobe infiltrates suspicious for pneumonia --MRSA nares negative-discontinued vancomycin -Legionella and other urine bacterial antigens are negative -Blood cultures are negative -Currently on Zosyn-complete 10-day course Code Status: Full Disposition: ICU Critically ill: Yes MD discussed with: Patient, hospitalist, RN, RT ICU CHECKLIST: Problem list updated Verbal orders reviewed and signed Analgesia: Opioid Glycemic Control: N/A Nutrition: Soft with aspiration precautions Restraint Renewal (within 24 hrs): N/A Ulcer Prophylaxis: PPI Chemical Thromboprophylaxis: Prophylaxis: Heparin Mechanical Thromboprophylaxis: SCDs Need for Central line: N/A Need for Blake catheter: Yes for urine output monitoring Attestations Medical Necessity Statement*: possible DC tomorrow Time Spent in Patient Care: Greater than 35 minutes (>than 50% of time spent in counselling and/or direct pt care on unit). Critical Care Time: This patient has a high probability of? clinically significant, sudden or life threatening deterioration of the patient's (pulmonary, renal, cardiac, hemodynamic) systems required my full, direct attention, the highest level of physician preparedness for urgent intervention and personal management.? I managed/supervised life or organ supporting interventions that required frequent physician assessment.? I devoted my full attention in the ICU to the direct care of this patient for the period of time indicated above.? Time I spent with family or surrogate(s) is included only if the patient was incapable of providing necessary information or participating in decision making.? This time includes the following services provided: Telemetry review Mechanical Ventilation Hemodynamic interpretation, assessment and management Review and interpretation of CXR Review and interpretation of lab values Review and interpretation of microbiologic data and culture results Review of medications and administration Review and interpretation of Nutrition requirements and management Discussion of management with other consultants and services Clinical update to family members [x] Data and vital sign review and interpretation [x] Patient assessment, examination and intervention [x] Documentation [x] Medication orders and management Time spent for teaching as well as performing procedures are billed separately and is not included in this note ? Critical Care Time (min): 46 Coding Level of Care Code Acute Code for Chg Fwd Diagnoses Acute respiratory failure with hypoxia J96.01 CHF (congestive heart failure) I50.9 EDWIN (acute kidney injury) N17.9 Sepsis A41.9 Coronary artery disease I25.10 History of type 2 diabetes mellitus Z86.39 COPD (chronic obstructive pulmonary disease) J44.1 COPD type: COPD with acute exacerbation Atrial fibrillation I48.91 Time Spent (min) 46
--- NOTE | 2022-08-27 14:42 | PM.OP ---
Operative Report Date of procedure: August 27, 2022 Pre-op diagnosis: Preop Diagnosis end-stage renal disease Post-op diagnosis: same Procedure done: Right internal jugular permacath placement Implants: Permacath Surgeon: Dr. Scotty Dominguez DO Anesthesia: General Estimated blood loss (mL): 20 Complications: None apparent Brief History: This very pleasant 67-year-old gentleman who began hemodialysis in the intensive care unit. Nephrology determined he needed longer term hemodialysis. PermCath insertion was indicated. The risks and benefits were explained and documented. Procedure: Patient was taken to the operating room and placed supine on the operating room table. All bony prominences were padded. He was given IV sedation and monitored throughout the case by the anesthesia personnel. SCDs were placed and turned on. The arms were tucked to the side. Patient received Vancomycin preoperatively IV. The bilateral chest wall was prepped and draped in usual sterile fashion using chlorhexidine base prep. Sterile drapes were applied. We did procedure pause prior to beginning. An 18 gauge needle was placed in the right internal jugular vein under ultrasound guidance. Dark, nonpulsatile blood was aspirated. A guidewire was placed through the needle centrally toward the atrial/vena caval junction. Fluoroscopy visualized good placement. The needle was removed and the guidewire was clipped to the drape with a hemostat. Further local anesthetic was infiltrated in the soft tissues of the right chest wall and a #15 blade was used to make a vertical skin incision. A #15 blade was used to make a small skin jono around the guidewire insertion area. The permacath tubing was tunneled through the subcutaneous tissues up to the needle insertion location. Serial dilators were used to serially dilate over the guidewire . A dilator with a peel-away sheath was placed over the guidewire and placed centrally. The guidewire was removed as well as the dilator and the permacath was fed into the split sheath. The split sheath was removed. Both ports were aspirated to reveal dark blood and were flushed with saline only as the patient has a heparin allergy. final fluoroscopy visualization showed no kink in the catheter and the tip of the permacath tubing near the atrial/vena caval junction. Both skin incisions were thoroughly irrigated and suctioned dry. Meticulous hemostasis noted. The internal jugular access site was closed with 4-0 Vicryl in a subcuticular fashion. The skin overlying the permacath was closed in a similar manner. The permacath was then sutured into place using 2-0 nylon in a simple interrupted fashion. skin glue was applied as a topical dressing. This was allowed to dry. Patient was awakened from anesthesia and transferred via her cart to the recovery room in stable condition. All needle, sponge, and instrument counts were correct per the operating personnel x2 counts.
--- NOTE | 2022-08-27 15:28 | XRR_ITS ---
PROCEDURE INFORMATION: Exam: XR Chest Exam date and time: 08/27/2022 2:38 PM Age: 67 years old Clinical indication: Device placement; Other: R ij permacath placement; Prior surgery; Surgery date: Post-operative (0-2 days); Additional info: S/P R ij permacath placement TECHNIQUE: Imaging protocol: Radiologic exam of the chest. Views: 1 view. COMPARISON: CR (CHEST, ) 08/25/2022 4:25 PM FINDINGS: Tubes, catheters and devices: Right central line noted terminating at the distal SVC. Lungs: Curvilinear opacities at the periphery of the left lower lobe likely reflecting atelectasis or scarring. No consolidation. Pleural spaces: No pleural effusion. No pneumothorax. Heart/Mediastinum: Mild cardiomegaly. Bones/joints: Visualized osseous structures are intact. XR/XR chest 1V portable [id number] IMPRESSION: Interval placement of right central line, no pneumothorax or other acute abnormality.
--- NOTE | 2022-08-27 15:52 | ANE.PACU2 ---
Inpatient post-anesthesia follow up: Airway intact: Yes Vital signs: Temperature 97.9 F Pulse Rate [Therap y Changed] 102 Pulse Rate [Curren t] 109 Pulse Rate 84 Respiratory Rate [ Therapy 20 Changed] Respiratory Rate [ Current] 20 Respiratory Rate 22 Blood Pressure 100/55 Pulse Oximetry [Th erapy 95 Changed] Pulse Oximetry [Cu rrent] 94 Pulse Oximetry [Ro om Air at 85 Rest] Pulse Oximetry 93 Oxygen Delivery Me thod Nasal Cannula Oxygen Flow Rate [ Therapy 50 Changed] Oxygen Flow Rate [ Current] 50 Oxygen Flow Rate 5 Fraction of Inspir ed Oxygen [ 50 Therapy Changed] Fraction of Inspir ed Oxygen [ 50 Current] Fraction of Inspir ed Oxygen 5 Hydration adequate: Yes Nausea and vomiting: No Pain level: 2 Mental status: Baseline
[2022-08-27] MEDS: amoxicillin-clav 875-125 mg Tablet 1 TAB PO (16:14)
[2022-08-27] MEDS: amiodarone 200 mg Tablet 400 MG PO (16:15)
[2022-08-27] MEDS: propranolol 20 mg Tablet PO (20:01)
[2022-08-27] MEDS: heparin, porcine 1,000 unit/mL INJ 10 mL 10000 UNIT HE (22:00)
[2022-08-27] MEDS: albumin 12.5 GM/50 ML VIAL IV (23:59)
[2022-08-28] VITALS (16 sets, daily range): BP systolic 93–163; BP diastolic 51–103; PULSE 70–92; RESP 10–23; TEMP 36.6–36.8; O2SAT 94–99
[2022-08-28] MEDS: heparin 5,000 unit/mL INJ 1 mL 5000 UNIT SUBCUT (00:13)
[2022-08-28 01:35] LABS: Basophils % 0.1 %; Eosinophils # 0.4 10^3/uL (0.0-0.8); Hematocrit 28.2 % (42.0-52.0); Hemoglobin 8.7 g/dL (11.7-16.6); Lymphocytes # 2.1 10^3/uL (0.8-4.8); Lymphocytes % 9.9 %; Mean Corpuscular HGB Conc 30.9 g/dL (30.0-36.0); Mean Corpuscular Hemoglobin 23.9 pg (28.0-34.0); Mean Corpuscular Volume 77.5 fl (80-94); Monocytes # 1.7 10^3/uL (0.2-0.9); Monocytes % 7.7 %; Neutrophils % 78.4 %; Nucleated Red Blood Cells % 0 %; Platelet Count 428 10^3/cmm (130-400); Red Blood Count 3.64 10^6/uL (4.1-5.3); White Blood Count 21.6 10^3/uL (4.0-10.0)
[2022-08-28 01:59] LABS: Anion Gap 17.5 (5-19); Blood Urea Nitrogen 51 mg/dL (8-23); Calcium 7.9 mg/dL (8.5-10.5); Carbon Dioxide 27 mmol/L (22-29); Chloride 94 mmol/L (98-107); Glomerular Filtration Rate 15.5 mL/min (90-130); Glucose 101 mg/dL (65-115); Osmolality Calculated 294 mOsm/kg (285-295); Potassium 3.5 mmol/L (3.5-5.1); Sodium 135 mmol/L (136-145)
[2022-08-28] MEDS: levalbuterol 0.63 mg/3 mL Neb INHALATION ×2 (02:18→08:29)
[2022-08-28] MEDS: ipratropium 0.5 mg/2.5 mL Neb INHALATION ×2 (02:18→08:29)
--- NOTE | 2022-08-28 02:48 | PC.HD ---
New tunnelled cath placed in OR today, functioned well. Pt persistently hypotensive in spite of decreased machine temp and albumin given, so fluid removal goal not reached. Pt asymptomatic throughout however. 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 Treatment time shortened per Dr Liang's instructions d/t case load.
[2022-08-28] MEDS: aspirin 81 mg EC Tablet PO (08:00)
[2022-08-28] MEDS: TRAMadol 50 mg Tablet PO (08:01)
[2022-08-28] MEDS: amiodarone 200 mg Tablet 400 MG PO (08:01)
[2022-08-28] MEDS: sucralfate 1 gm Tablet PO (08:02)
[2022-08-28] MEDS: pantoprazole 40 mg SDV IVP (08:02)
[2022-08-28] MEDS: amoxicillin-clav 875-125 mg Tablet 1 TAB PO (08:02)
[2022-08-28] MEDS: dilTIAZem ER (24HR) 240 mg Capsule PO (08:02)
[2022-08-28] MEDS: lidocaine 5% Patch 1 PATCH TOPICAL (08:02)
[2022-08-28] MEDS: propranolol 20 mg Tablet PO (08:02)
[2022-08-28] MEDS: budesonide 0.5 mg/2 mL Neb INHALATION (08:29)
[2022-08-28 08:50] LABS: Hematocrit 31.1 % (42.0-52.0); Hemoglobin 9.2 g/dL (11.7-16.6)
--- NOTE | 2022-08-28 10:56 | PM.DCS ---
Discharge Providers Date of Admission: 08/20/22 19:41 Date of Discharge: August 27, 2022 Attending Provider at Admission: Conor Madera Attending Provider at Discharge: Delmar Ho MD Primary Care Provider: Lovely Ivey MD Diagnoses at Discharge Discharge Diagnosis (1) ESRD (end stage renal disease): Status: Acute (2) Acute encephalopathy: Status: Acute (3) Acute respiratory failure with hypoxia: Status: Acute (4) Atrial fibrillation: Status: Acute (5) Pneumonia: Status: Acute (6) Sepsis: Status: Acute (7) Pyelonephritis of left kidney: Status: Acute (8) UTI (urinary tract infection): Status: Acute (9) COPD (chronic obstructive pulmonary disease): Status: Acute Qualifiers: COPD type: COPD with acute exacerbation Qualified Code(s): J44.1 - Chronic obstructive pulmonary disease with (acute) exacerbation Permanent problem details: 2L (10) Smoker: Status: Acute (11) History of heart artery stent: Status: Acute Reason for Visit Reason for Visit: CHEST PAIN Hospital Course Hospital Course 67-year-old male who presented to hospital with chief complaint of chest pain which was related to A-fib RVR, he carries a history of chronic kidney disease stage IV with sepsis and septic bolus IV fluids which was due to pneumonia and pyelonephritis his chronic kidney disease transitioned to chronic kidney disease stage V and required dialysis, on recommendations of chief substation operator permacath was placed by Dr. Dominguez on 08/27, chair time has been arranged with the help of financial planner, please note at baseline patient is dependent on daily activities because of his legal blindness(macular degeneration), he lives with his , uses 3 to 4 L of oxygen at baseline, in the hospital he was requiring BiPAP because of fluid overload and pneumonia, we were able to transition down to 4 L of nasal cannula before discharge, During hospitalization 2 rapid response were called during same dialysis session for A-fib RVR at that point he was put on amiodarone drip, because of history of GI bleed he was not put on any anticoagulating agent, rate control he will stay on amiodarone and Cardizem, metoprolol discontinued because he gets propanolol for his resting tremors, patient and family does understand that he is at risk of stroke for not being on any anticoagulating agent, his cultures remain negative, broad-spectrum antibiotics were de-escalated to Augmentin Patient's hemoglobin has stayed around 9, he is FOBT positive, patient does not want to get EGD or colonoscopy during this visit stating that he would like to get it outpatient, I will give him referral for Dr. Dominguez, his white count at the time of discharge is trending down, oxygen requirement 4 L, Physical Exam Narrative: Patient is morbidly obese Awake and alert GCS 15 Currently on 4 L No active shortness of breath Was getting chest physiotherapy at the time of my evaluation Urinary Catheter Management: Blake: Cath Placed During This Visit: yes Reason for Continuing Indwelling Catheter: Accurate Measurement of Urinary Output in Critically Ill Patients Urinary Catheter Date of Insertion: 08/20/22 Urinary Catheter Time of Insertion: 21:16 Discharge Data Studies Completed and Pending Completed Studies During Hospitalization Category Date Time Status CT chest abdomen pelvis [[place] [id number] Cat Scan 08/20/22 18:13 Completed ] Stat XR chest 1V portable [id number] Routine Exams 08/22/22 07:00 Completed XR chest 1V portable [id number] Routine Exams 08/25/22 17:15 Completed XR chest 1V portable [id number] Stat Exams 08/20/22 16:13 Completed XR chest 1V portable [id number] Stat Exams 08/21/22 15:15 [place] [id number] Routine Ultrasound 08/21/22 14:54 Completed CV. echo complete* [id number] Routine Ultrasound 08/22/22 06:00 Completed Pending at discharge Category Date Time Status C-arm [place] for CVA [id number] Routine Exams 08/27/22 07:10 Ordered Radiology Impressions Chest/Abdomen/Pelvis CT 08/20/22 18:13 IMPRESSION: 1. Bilateral dependent atelectasis versus infiltrate. 2. Several chronic posterior left rib fractures. 3. Scattered enlarged mediastinal lymph nodes measuring up to 15 mm, similar to prior exam, nonspecific. 4. Cardiomegaly. 5. Trace pericardial effusion. 6. Coronary artery atherosclerotic calcifications. IMPRESSION: 1. Mildly prominent fluid in the small bowel without dilation may reflect an enteritis. 2. Several hepatic cysts. 3. Left kidney punctate nonobstructing renal calyceal stone. 4. Perinephric edema likely reflecting renal insufficiency, please correlate for possible pyelonephritis. 5. Umbilical hernia containing omentum without bowel. 6. Left kidney exophytic 14 mm probable cyst, appears somewhat hyperdense, further evaluation with nonemergent renal ultrasound advised to evaluate for suspected cystic versus potentially solid nature. Venous Duplex 08/21/22 14:54 IMPRESSION: No evidence of deep vein thrombosis. Chest X-Ray 08/25/22 17:15 IMPRESSION: 1. No acute findings. 2. Right lower lobe atelectasis Laboratory Results WBC 24.2 10^3/uL (4.0-10.0) H 08/27/22 03:52 Corrected WBC Cancelled 08/22/22 05:33 RBC 3.91 10^6/uL (4.1-5.3) L 08/27/22 03:52 Hgb 9.2 g/dL (11.7-16.6) L 08/27/22 03:52 Hct 30.8 % (42.0-52.0) L 08/27/22 03:52 MCV 78.8 fl (80-94) L 08/27/22 03:52 MCH 23.5 pg (28.0-34.0) L 08/27/22 03:52 MCHC 29.9 g/dL (30.0-36.0) L 08/27/22 03:52 RDW 17.2 % (12.1-15.1) H 08/27/22 03:52 Plt Count 451 10^3/cmm (130-400) H 08/27/22 03:52 MPV 11.4 fL (7.4-10.4) H 08/27/22 03:52 Gran % Cancelled 08/22/22 05:33 Neut % (Auto) 70.6 % 08/27/22 03:52 Lymph % (Auto) 15.9 % 08/27/22 03:52 [place] % (Auto) 9.0 % 08/27/22 03:52 Eos % (Auto) 2.2 % 08/27/22 03:52 Baso % (Auto) 0.2 % 08/27/22 03:52 Neut # (Auto) 17.05 10^3/uL (1.8-7.7) H 08/27/22 03:52 Lymph # (Auto) 3.9 10^3/uL (0.8-4.8) 08/27/22 03:52 [place] # (Auto) 2.2 10^3/uL (0.2-0.9) H 08/27/22 03:52 Eos # (Auto) 0.5 10^3/uL (0.0-0.8) 08/27/22 03:52 Baso # (Auto) 0.1 10^3/uL (0.0-0.1) 08/27/22 03:52 Absolute Gran (auto) Cancelled 08/22/22 05:33 Nucleated RBC % (auto) 0 % 08/27/22 03:52 Nucleated RBCs # 0.0 /100WBC 08/27/22 03:52 PT 15.00 SECONDS (12.1-14.9) H 08/24/22 02:24 INR 1.14 (0.8-1.2) 08/24/22 02:24 Specimen Type Arterial 08/25/22 16:54 Sample Site Radial, right 08/25/22 16:54 ABG pH 7.35 (7.35-7.45) 08/25/22 16:54 ABG pCO2 39.0 mmHg (35-45) 08/25/22 16:54 ABG pO2 79.9 mmHg (80.0-100.0) L 08/25/22 16:54 ABG HCO3 21.7 mmol/L (22-26) L 08/25/22 16:54 ABG O2 Saturation 95.4 08/25/22 16:54 ABG Base Excess -3.5 mmol/L (-2.0-2.0) L 08/25/22 16:54 [place] Test Pos 08/25/22 16:54 A-a O2 Gradient 20.7 mmHg (5-10) H 08/25/22 16:54 Hematocrit 35.1 % (42-52) L 08/25/22 16:54 Hgb O2 Saturation 93.8 % (95-100) L 08/25/22 16:54 Carboxyhemoglobin 1.0 %THgb (0.4-20.1) 08/25/22 16:54 Methemoglobin 0.6 % (0.4-1.5) 08/25/22 16:54 Total Hemoglobin 11.4 g/dL (14-18) L 08/25/22 16:54 Sodium 136.0 mmol/L (131-143) 08/25/22 16:54 Potassium 4.3 mmol/L (3.5-5.0) 08/25/22 16:54 Glucose 121.0 mg/dL (70-115) H 08/25/22 16:54 Ionized Calcium 1.0 mmol/L (1.1-1.4) L 08/25/22 16:54 O2 Delivery Device Bipap 08/25/22 16:54 O2 Liters/Min 2.0 % 08/20/22 19:48 FiO2 40.0 % 08/25/22 16:54 Wool Presser ID Cak 08/25/22 16:54 Sodium 131 mmol/L (136-145) L 08/27/22 03:52 Potassium 4.6 mmol/L (3.5-5.1) 08/27/22 03:52 Chloride 87 mmol/L (98-107) L 08/27/22 03:52 Carbon Dioxide 23 mmol/L (22-29) 08/27/22 03:52 Anion Gap 25.6 (5-19) H 08/27/22 03:52 BUN 99 mg/dL (8-23) H* 08/27/22 03:52 Creatinine 7.1 mg/dL (0.7-1.2) H* 08/27/22 03:52 GFR Calculation 7.7 mL/min (90-130) L 08/27/22 03:52 Glucose 85 mg/dL (65-115) 08/27/22 03:52 POC Glucose 139 mg/dL (70-110) H 08/25/22 17:58 Calculated Osmolality 302 mOsm/kg (285-295) H 08/27/22 03:52 Lactate 1.6 mmol/L (0.5-2.2) 08/24/22 02:24 Calcium 7.4 mg/dL (8.5-10.5) L 08/27/22 03:52 Phosphorus 7.8 mg/dL (2.5-4.5) H* 08/24/22 02:24 Magnesium 1.9 mg/dL (1.7-2.3) 08/25/22 18:18 Iron 11 ug/dL (59-158) L 08/21/22 10:05 TIBC 265 mcg/dl 08/21/22 10:05 % Saturation 4.1 % (20-50) L 08/21/22 10:05 Unsat Iron Binding 254 ug/dL (112-347) 08/21/22 10:05 Ferritin 16 ng/mL (30-400) L 08/21/22 10:05 Total Bilirubin 0.2 mg/dL (0.15-1.2) 08/25/22 03:33 AST 19 U/L (0-40) 08/25/22 03:33 ALT 25 U/L (0-41) 08/25/22 03:33 Alkaline Phosphatase 93 U/L (40-130) 08/25/22 03:33 Creatine Kinase 57 U/L (39-308) 08/21/22 10:05 Troponin T Baseline 66 ng/L (0-15) H 08/25/22 18:18 Troponin T 120 Minute 68.76 ng/L (0-15) H 08/25/22 20:23 Delta Troponin T 2.76 ABS# (0-10) 08/25/22 20:23 Troponin T Hi Sens 6Hr 69.54 ng/L (0-15) H 08/26/22 00:58 Troponin T Hi Sens 6Hr Delta 3.54 ng/L (0-12) 08/26/22 00:58 C-Reactive Protein 42.3 mg/L (0.0-4.9) H 08/24/22 02:24 NT-Pro-B Natriuret Pep 1944 pg/mL (0-125) H 08/24/22 02:24 Total Protein 6.2 g/dL (6.6-8.7) L 08/25/22 03:33 Albumin 3.3 g/dL (3.5-5.2) L 08/25/22 03:33 Globulin 2.9 g/dL (1.3-4.6) 08/25/22 03:33 Lipase 25 U/L (13-60) 08/20/22 16:33 Procalcitonin 0.18 ng/mL (0-0.5) 08/24/22 02:24 TSH 2.01 uIU/mL (0.27-4.20) 08/21/22 04:54 Urine Color Yellow (Yellow) 08/20/22 21:15 Urine Appearance Clear (CLEAR) 08/20/22 21:15 Urine pH 5 (5-7) 08/20/22 21:15 Ur Specific [place] 1.025 (1.005-1.030) 08/20/22 21:15 Urine Protein Trace (Negative) 08/20/22 21:15 Urine Glucose (UA) Norm (Normal) 08/20/22 21:15 Urine Ketones 1+ (Negative) H 08/20/22 21:15 Urine Blood Neg (Negative) 08/20/22 21:15 Urine Nitrate Negative (Negative) 08/20/22 21:15 Urine Bilirubin Neg (Negative) 08/20/22 21:15 Urine Urobilinogen 1 mg/dL (Negative) H 08/20/22 21:15 Ur Leukocyte Esterase Trace (Negative) H 08/20/22 21:15 Urine RBC 0-4 /hpf (0-2) H 08/20/22 21:15 Urine WBC 10-15 /hpf (0-5) H 08/20/22 21:15 Ur Squamous Epith Cells 0-4 /hpf (0-5) H 08/20/22 21:15 Calcium Oxalate Crystal 0-4 /hpf H 08/20/22 21:15 Amorphous Sediment Research Associate Policy 08/20/22 21:15 Urine Bacteria 1+ /hpf (NONE) H 08/20/22 21:15 Ur Random Urea Nitrogn 253 mg/dL 08/20/22 23:00 Urine Creatinine 210 mg/dL (39-259) 08/20/22 23:00 Vancomycin Trough 23.9 ug/mL (10-15) H 08/24/22 15:05 Coronavirus 229E (PCR) Not detected (NOT DETECT) 08/20/22 23:00 Hep Bs Antigen Non-reactive (Nonreactive) 08/21/22 18:46 Hep Bs Antibody 3.5 (11.5-1000) L 08/21/22 18:46 Hep B Core Total Ab Non-reactive (Nonreactive) 08/21/22 18:46 Hepatitis C Antibody Non-reactive (Nonreactive) 08/21/22 18:46 SARS-CoV-2 (PCR) Not detected (NOT DETECT) 08/20/22 23:00 Vitals Last Vital Signs Temp 97.9 F 08/27/22 04:00 Pulse 118 H 08/27/22 09:23 Resp 16 08/27/22 08:00 BP 136/68 08/27/22 04:00 Pulse Ox 85 L 08/27/22 09:21 O2 Del Method 08/27/22 08:00 O2 Flow Rate 5 08/26/22 20:30 FiO2 5 08/27/22 08:00 Discharge Plan Discharge Patient Disposition: Home Health Service Condition: Stable Prescriptions: New amoxicillin-pot clavulanate 875-125 mg Tablet 1 tab PO BID Qty: 10 0RF amiodarone [Pacerone] 200 mg Tablet 400 mg PO BID Qty: 90 3RF Rx Instructions: 400 mg twice a day for 3 days and then 200 mg twice a day for 3 days then 200 mg daily diltiazem HCl [Cardizem LA] 240 mg tablet extended release 24 hr 240 mg PO DAILY Qty: 60 2RF Continued multivitamin Tablet 1 tab PO DAILY atorvastatin 80 mg tablet 40 mg PO DAILY cholecalciferol (vitamin D3) 50 mcg (2,000 unit) capsule 50 mcg PO DAILY docusate sodium 100 mg capsule 100 mg PO BID PRN (Reason: Constipation) lisinopril 20 mg tablet 10 mg PO DAILY nitroglycerin 0.4 mg tablet, sublingual 0.4 mg sublingual Q5M PRN (Reason: Chest Pain) Rx Instructions: do not exceed 3 doses per episode omeprazole 20 mg capsule,delayed release(DR/EC) 20 mg PO DAILY polyethylene glycol 3350 17 gram/dose powder 17 g PO DAILY PRN (Reason: Constipation) pregabalin 150 mg capsule 150 mg PO BID aspirin [Adult Low Dose Aspirin] 81 mg tablet,delayed release (DR/EC) 81 mg PO DAILY (DME) Allan Aerosol [place] Enhancer Spacer See Rx Instructions .Route Qty: 1 2RF Rx Instructions: As directed ipratropium bromide 0.02 % solution 2.5 ml inhalation Q6H PRN (Reason: Shortness Of Breath Or Wheezing) ipratropium-albuterol 0.5 mg-3 mg(2.5 mg base)/3 mL solution for nebulization 3 ml inhalation Q4H PRN (Reason: wheezing) Qty: 90 3RF albuterol sulfate [Ventolin HFA] 90 mcg/actuation HFA aerosol inhaler 1 inh inhalation QID PRN (Reason: shortness of breath or wheezing) Qty: 8.5 3RF Spiriva with HandiHaler 18 mcg capsule, w/inhalation device 1 cap inhalation DAILY Qty: 30 3RF Rx Instructions: puncture 1 cap using device; one dose = 2 inhalations budesonide-formoterol [Symbicort] 160-4.5 mcg/actuation HFA aerosol inhaler 2 puff inhalation BID Qty: 10.2 3RF guaifenesin [Mucinex] 600 mg tablet extended release 12hr 600 mg PO Q12H PRN (Reason: congestion) Qty: 60 3RF (DME) nebulizer accessories Kit See Rx Instructions .Route Qty: 1 0RF Rx Instructions: all nebulizer supplies needed sodium chloride 3 % solution for nebulization 4 ml inhalation BID PRN (Reason: congestion) Qty: 240 3RF propranolol 80 mg Tablet 40 mg PO TID albuterol sulfate 2.5 mg /3 mL (0.083 %) Solution For Nebulization 2.5 mg INHALATION Q4H PRN (Reason: Shortness Of Breath Or Wheezing) Vitamin C 500 mg Tablet 1,000 mg PO DAILY tamsulosin 0.4 mg Capsule 0.4 mg PO DAILY zinc gluconate 50 mg Tablet 50 mg PO DAILY Flonase 50 mcg/actuation [place],Suspension 1 spray INTRANASAL DAILY Rx Instructions: administer into each nostril ferrous gluconate 324 mg (38 mg iron) Tablet 324 mg PO DAILY lidocaine 5 % Ointment 1 applic TOPICAL DAILY PRN (Reason: Pain) PreserVision AREDS-2 250-90-40-1 mg Capsule 1 tab PO BID naloxone 4 mg/actuation [place],Non-Aerosol 4 mg INTRANASAL Q3M PRN (Reason: Opioid Overdose) Rx Instructions: spray 1 dose into ONE nostril; alternate nostrils w each dose until help arrives Discontinued apixaban 5 mg tablet 5 mg PO BID metformin 1,000 mg tablet 1,000 mg PO BID metoprolol tartrate 50 mg tablet 50 mg PO BID Qty: 240 3RF furosemide 80 mg Tablet 80 mg PO BID loratadine 10 mg Tablet 10 mg PO DAILY diltiazem HCl 120 mg Tablet Extended Release 24 Hr 120 mg PO DAILY Discharge Orders: Discharge Order (Routine); Ordered 08/28/22 Ordered By: Delmar Ho Other Ambulatory Orders: DME: Wheelchair (Order) Location: None Selected Ordered By: Moisés Landon Referrals: [facility] [Other] (You have a chair time at [facility] for Tuesdays, , and Saturdays at 10:20 am. Please arrive 15-20 minutes early to complete paperwork. If you have any questions please reach out to the clinic at [phone].) Lovely Ivey MD [Primary Care Provider] - [facility], [Staff Physician] - Scotty Dominguez DO [Physician] - 2 weeks (For EGD and colonoscopy) Discharge Diet: Cardiac Discharge Activity: Increase activity as tolerated Patient Instructions: Opioid Safety Discharge Attestations Time Spent in Discharge Care*: greater than 30 min Quality Metrics Clinical Quality Measures [ No reported AMI, CVA or VTE this stay] Coding Level of Care Code Acute Code for Chg Fwd Diagnoses ESRD (end stage renal disease) N18.6 Acute encephalopathy G93.40 Acute respiratory failure with hypoxia J96.01 Atrial fibrillation I48.91 Pneumonia J18.9 Sepsis A41.9 Pyelonephritis of left kidney N12 UTI (urinary tract infection) N39.0 COPD (chronic obstructive pulmonary disease) J44.1 COPD type: COPD with acute exacerbation Smoker F17.200 History of heart artery stent Z95.5
--- NOTE | 2022-08-28 11:36 | PC.NURSE ---
removed temporary dialysis catheter from right groin. manual pressure held 15 minutes. no bleeding noted, site dry and intact. Patient has tunneled dialysis catheter in place in right chest.
--- NOTE | 2022-08-28 12:47 | PM.PN ---
Subjective Subjective: doing well Medications: Reviewed: Yes Vitals/I&O/Wt Last Vital Signs Temp 98.2 F 08/28/22 04:00 Pulse 70 08/28/22 12:00 Resp 19 H 08/28/22 12:00 BP 131/91 08/28/22 12:00 Pulse Ox 97 08/28/22 12:00 O2 Del Method 08/28/22 08:30 O2 Flow Rate 4 08/28/22 08:30 FiO2 40 08/28/22 02:20 08/27/22 08/28/22 08/28/22 22:59 06:59 14:59 Intake Total 150 / 150 600 / 750 360 / 360 Output Total 3957 / 3957 Balance 150 / 150 -3357 / -3207 360 / 360 Weight last 48 hrs Weight 156.898 kg Weight 156.8 kg Weight 163 kg Physical Exam Narrative: Patient is awake alert no acute distress, 2+ pedal edema per report Urinary Catheter Management: Blake: Cath Placed During This Visit: yes Reason for Continuing Indwelling Catheter: Accurate Measurement of Urinary Output in Critically Ill Patients Urinary Catheter Date of Insertion: 08/20/22 Urinary Catheter Time of Insertion: 21:16 Data 08/28/22 08:41 08/28/22 01:14 A&P Assessment and plan (1) EDWIN (acute kidney injury): Plan #1 Acute kidney injury: Secondary to ATN from sepsis likely but patient has severe hyperkalemia despite medical management. . HD started . no sign of renal recovery yet ,s/p tunnelled catheter placement. Status post HD at yesterday -Outpatient HD arranged, TTS schedule, plan for discharge home today #2 hyperkalemia: improved , low potassium diet #3 pyelonephritis: Antibiotics per primary team #4 acute respiratory failure: Multifactorial, antibiotics per primary team.wean O2 as tolerated #5 A fib with RVR Patient evaluated using audiovisual cart. Time spent 40 minutes Attestations Medical Necessity Statement*: Anticipate discharge IN 1-2 DAYS Coding Level of Care Code Acute Code for Chg Fwd Diagnoses EDWIN (acute kidney injury) N17.9
--- NOTE | 2022-08-28 12:50 | PM.PN ---
Subjective Subjective: no new complaints Medications: Reviewed: Yes Vitals/I&O/Wt Last Vital Signs Temp 98.2 F 08/28/22 04:00 Pulse 70 08/28/22 12:00 Resp 19 H 08/28/22 12:00 BP 131/91 08/28/22 12:00 Pulse Ox 97 08/28/22 12:00 O2 Del Method 08/28/22 08:30 O2 Flow Rate 4 08/28/22 08:30 FiO2 40 08/28/22 02:20 08/27/22 08/28/22 08/28/22 22:59 06:59 14:59 Intake Total 150 / 150 600 / 750 360 / 360 Output Total 3957 / 3957 Balance 150 / 150 -3357 / -3207 360 / 360 Weight last 48 hrs Weight 156.898 kg Weight 156.8 kg Weight 163 kg Physical Exam Narrative: Patient is awake alert no acute distress, 1+ pedal edema per report Urinary Catheter Management: Blake: Cath Placed During This Visit: yes Reason for Continuing Indwelling Catheter: Accurate Measurement of Urinary Output in Critically Ill Patients Urinary Catheter Date of Insertion: 08/20/22 Urinary Catheter Time of Insertion: 21:16 Data 08/28/22 08:41 08/28/22 01:14 A&P Assessment and plan (1) EDWIN (acute kidney injury): Plan #1 Acute kidney injury: Secondary to ATN from sepsis likely but patient has severe hyperkalemia despite medical management. . HD started . no sign of renal recovery yet ,s/p tunnelled catheter placement. Status post HD at yesterday -Outpatient HD arranged, TTS schedule, plan for discharge home today #2 hyperkalemia: improved , low potassium diet #3 pyelonephritis: Antibiotics per primary team #4 acute respiratory failure: Multifactorial, antibiotics per primary team.wean O2 as tolerated #5 A fib with RVR Patient evaluated using audiovisual cart. Time spent 40 minutes Coding Level of Care Code Acute Code for Chg Fwd Diagnoses EDWIN (acute kidney injury) N17.9
--- NOTE | 2022-08-28 15:41 | PC.NURSE ---
patient received discharge orders. All prescriptions sent to pharmacy and given to patient. All instructions and activity restrictions explained to patient. Patient and family verbalized understanding. IV and mario catheter removed and patient was rolled out of unit via wheelchair to vehicle
== END 2022-08-28 15:30 | disposition home health service (06) | DRG 871 ==
LOC: ER 19:40 → ICU 20:16 → MEDSURG 08-25 14:01 → ICU 08-25 18:41
PROVIDERS: Family Medicine; Hospitalist; Surgery; Admitting Provider Internal Medicine; Emergency Provider Emergency Medicine; PCP Family Medicine; Visit Provider Internal Medicine
DX: A41.9 Sepsis, unspecified organism (principal); G93.41 Metabolic encephalopathy; J18.9 Pneumonia, unspecified organism; R65.21 Severe sepsis with septic shock; N18.6 End stage renal disease; N17.0 Acute kidney failure with tubular necrosis; J96.01 Acute respiratory failure with hypoxia; I21.4 Non-ST elevation (NSTEMI) myocardial infarction; I12.0 Hypertensive chronic kidney disease with stage 5 chronic kidney disease or end stage renal disease; N12 Tubulo-interstitial nephritis, not specified as acute or chronic; N39.0 Urinary tract infection, site not specified; Z68.42 Body mass index [BMI] 45.0-49.9, adult; J44.0 Chronic obstructive pulmonary disease with (acute) lower respiratory infection; E87.5 Hyperkalemia; I48.91 Unspecified atrial fibrillation; H54.8 Legal blindness, as defined in USA; Z99.81 Dependence on supplemental oxygen; R19.5 Other fecal abnormalities; T39.395A Adverse effect of other nonsteroidal anti-inflammatory drugs [NSAID], initial encounter; D50.9 Iron deficiency anemia, unspecified; I95.9 Hypotension, unspecified; S22.42XD Multiple fractures of ribs, left side, subsequent encounter for fracture with routine healing; X58.XXXD Exposure to other specified factors, subsequent encounter; N28.1 Cyst of kidney, acquired; D63.1 Anemia in chronic kidney disease; Z87.891 Personal history of nicotine dependence; G47.33 Obstructive sleep apnea (adult) (pediatric); Z91.041 Radiographic dye allergy status; K42.9 Umbilical hernia without obstruction or gangrene; N20.0 Calculus of kidney; E78.5 Hyperlipidemia, unspecified; E66.01 Morbid (severe) obesity due to excess calories; I25.10 Atherosclerotic heart disease of native coronary artery without angina pectoris; Z95.5 Presence of coronary angioplasty implant and graft; Z99.89 Dependence on other enabling machines and devices; Z79.51 Long term (current) use of inhaled steroids; Z79.82 Long term (current) use of aspirin
CPT/HCPCS: 12345; 36415; 36416; 36600; 51702; 71045; 71250; 74176; 77001; 80048; 80051; 80053; 80202; 81001; 82274; 82330; 82550; 82570; 82728; 82803; 82805; 82962; 83540; 83550; 83605; 83690; 83735; 83880; 84100; 84145; 84443; 84484; 84540; 85014; 85018; 85025; 85610; 86140; 86403; 86705; 86706; 86803; 87040; 87070; 87205; 87340; 87449; 87635; 87641; 90935; 92523; 92610; 93005; 93306; 93970; 94640; 94660; 94664; 94669; 94760; 96365; 96367; 96372; 96375; 96376; 97110; 97116; 97161; 97530; 99291; C1750; C9113; J0282; J0610; J0696; J1644; J1815; J1940; J2250; J2270; J2405; J2543; J2704; J2920; J2930; J3010; J3370; J3490; J7040; J7050; J7060; J7613; J7614; J7626; J7644; P9047; Q3014

== ENCOUNTER 2022-09-08 | Inpatient (IN) | payer OTHER, SELFPAY ==
[2022-09-08] VITALS (54 sets, daily range): BP systolic 118–166; BP diastolic 49–115; PULSE 61–98; RESP 12–32; TEMP 36.6–37.2; O2SAT 87–97; BMI 50.6
--- NOTE | 2022-09-08 00:07 | XRR_ITS ---
PROCEDURE INFORMATION: Exam: XR Chest Exam date and time: 09/08/2022 12:18 AM Age: 67 years old Clinical indication: Shortness of breath; Prior surgery; Surgery type: Coronary stent. Dialysis cath. Patient HX: C/O SOB. History of copd and chf. TECHNIQUE: Imaging protocol: Radiologic exam of the chest. Views: 1 view. COMPARISON: CR XR chest 1V portable [id number] 08/27/2022 2:38 PM FINDINGS: Tubes, catheters and devices: Dialysis catheter in the mid SVC. Lungs: Background reticular changes of interstitium stable from comparison. Negative for pulmonary consolidation. Pleural spaces: Unremarkable. No pleural effusion. No pneumothorax. Heart/Mediastinum: Cardiomegaly. Bones/joints: Unremarkable. XR/XR chest 1V portable [id number] IMPRESSION: 1. No focal acute pulmonary disease. 2. No change from comparison.
--- NOTE | 2022-09-08 00:10 | ECG_ITS ---
[facility] Test Date: 2022-09-08 Pat Name: Artie Quiles Department: Room: [facility] Gender: Male Invasive Cardiologist: : 1955 Requested By: Manoj Mendoza Order Number: [id number] José Antonio MD: Gadiel Kinsey M.D. Measurements Intervals [place] Rate: 78 P: 87 [place]: 225 QRS: -4 QRSD: 87 T: 72 QT: 353 QTc: 404 Interpretive Statements SINUS RHYTHM WITH FIRST DEGREE AV BLOCK LOW QRS VOLTAGE [QRS DEFLECTION < 0.5/1.0 mV IN LIMB/CHEST LEADS] Nonspecific T wave changes Compared to ECG 08/25/2022 22:26:11 First degree AV block now present Low QRS voltage now present Atrial fibrillation no longer present Aberrant conduction of supraventricular beat(s) no longer present Ventricular premature complex(es) no longer present Electronically Signed On 09-09-2022 2:16:12 CDT by Gadiel Kinsey M.D. [id number]
--- NOTE | 2022-09-08 00:16 | W.ED.SOB ---
HPI - SOB/Dyspnea General: Chief Complaint: Shortness of Breath/Dyspnea Stated Complaint: SOB Time Seen by Provider: 09/08/22 00:06 Source: patient and EMS Mode of arrival: EMS Limitations: no limitations History of Present Illness: HPI Narrative: 67-year-old male with a history of COPD CHF along with end-stage renal disease. He gets dialysis Wednesday states he missed his dialysis on Wednesday as he is having some diarrhea he states that tonight he had increasing shortness of breath EMS arrived they state he was in distress they placed him on BiPAP we did convert him to our BiPAP he is tachypneic and in distress here with the Jesenia's. He denies any pain he has had a slight cough he denies any fever he denies any vomiting. Denies chest pain Associated symptoms: Deny abdominal pain, chest pain, fever(s), nausea or vomiting Review of Systems Const: Denies: fever(s), chills, body aches or change in appetite Eyes: Denies: blurry vision or eye discomfort ENMT: Denies: throat pain or dental pain Card: Denies: chest pain Resp: Reports: dyspnea GI: Reports: diarrhea; Denies: abdominal pain, nausea or vomiting : Denies: dysuria Musc: Denies: neck pain or back pain Skin/Breast: Denies: rash Neuro: Denies: headache(s) Psych: Denies: depression Rusty/Lymph: Denies: easy bruising All/Imm: Denies: urticaria PFSH ED PFSH: Medical History Abnormal CT scan, kidney Acute anemia Acute encephalopathy Acute respiratory failure with hypoxia EDWIN (acute kidney injury) Atrial fibrillation Chest pain CHF (congestive heart failure) COPD (chronic obstructive pulmonary disease) 2L Coronary artery disease ESRD (end stage renal disease) GI bleed History of type 2 diabetes mellitus Hyperkalemia Hyperkalemia Hyperlipidemia Hypertension Kidney lesion Legally blind NSTEMI (non-ST elevated myocardial infarction) NATHALY (obstructive sleep apnea) Nightly CPAP Pneumonia Pyelonephritis of left kidney Rib fractures Sepsis Septic shock Smoker UTI (urinary tract infection) Surgical History History of heart artery stent Social History Smoking and tobacco status: former smoker Quit status (tobacco): has quit using tobacco Year quit tobacco: August 2020 [id number] Second hand smoke exposure: Yes Smoking risk assessment/counseling performed?: Yes Alcohol intake: never Caregiver/support person: Yes Lives independently: Yes Household members: significant other Marital status: service: Yes Current occupational status: retired and disabled Pets and animals: Yes Current gender identity: Male Physical Exam Const: COMMON NORMALS: patient oriented x3 GENERAL APPEARANCE: in distress and ill appearing HENMT: COMMON NORMALS: normocephalic and atraumatic HEAD & SCALP: normocephalic and atraumatic Eye: COMMON NORMALS: Equal, round and reactive pupils present and EOMs intact bilaterally PUPIL: Yes Equal, round and reactive pupils present Neck/C-Spine: COMMON NORMALS: full ROM and supple Chest: COMMONS NORMALS: normal inspection of the chest and normal palpation of entire chest wall Resp: EFFORT & INSPECTION: Yes respiratory distress and Yes labored AUSCULTATION: rales and wheezes Cardio: COMMON NORMALS: regular rate, regular rhythm and No murmurs present (Cardio) RATE: regular rate RHYTHM: regular rhythm GI: COMMON NORMALS: Normal to inspection, nondistended, normoactive bowel sounds present, Soft to palpation, non-tender and no masses PALPATION: Yes Soft to palpation Extremity: COMMON NORMALS: normal to inspection and full ROM Neuro: COMMON NORMALS: patient oriented x3, moves all extremities and no focal motor deficits Psych: COMMON NORMALS: mental status grossly normal, Normal thought process present and cooperative THOUGHT PROCESS: Normal thought process present Skin: COMMON NORMALS: no rashes or lesions noted and no wounds GENERAL SKIN EXAM: no rashes or lesions noted Course Vital Signs: Vital signs: Vital Signs Temperature 99.0 F 09/08/22 00:01 Pulse Rate 84 09/08/22 00:01 Respiratory Rate 28 H 09/08/22 00:01 Blood Pressure 131/59 09/08/22 00:01 Pulse Oximetry 97 09/08/22 00:01 Oxygen Delivery Me thod 09/08/22 00:01 MDM - SOB/Dyspnea Medical Decision Making Patient presents here with respiratory failure with hypoxia likely due to a combination of COPD along with fluid overload due to missing his dialysis he is not hyperkalemic here he does have some hypercapnia he is currently on BiPAP and tolerating the BiPAP well he has no signs of pneumonia his EKG here is normal no signs of cardiac cause I spoke to the hospitalist and will admit at this time. Differential Diagnosis Likely acute exacerbation of chronic obstructive airways disease, congestive heart failure, community acquired pneumonia and pulmonary embolism Medical Records I reviewed the patient's medical records. Lab Data I reviewed the patient's lab results. 09/08/22 00:15 09/08/22 00:15 Labs/Radiology: Radiology Impressions Chest X-Ray 09/08/22 00:07 IMPRESSION: 1. No focal acute pulmonary disease. 2. No change from comparison. Laboratory Results WBC 14.7 10^3/uL (4.0-10.0) H 09/08/22 00:15 RBC 3.15 10^6/uL (4.1-5.3) L 09/08/22 00:15 Hgb 7.6 g/dL (11.7-16.6) L 09/08/22 00:15 Hct 27.0 % (42.0-52.0) L 09/08/22 00:15 MCV 85.7 fl (80-94) 09/08/22 00:15 MCH 24.1 pg (28.0-34.0) L 09/08/22 00:15 MCHC 28.1 g/dL (30.0-36.0) L 09/08/22 00:15 RDW 18.8 % (12.1-15.1) H 09/08/22 00:15 Plt Count 517 10^3/cmm (130-400) H 09/08/22 00:15 MPV 11.3 fL (7.4-10.4) H 09/08/22 00:15 Neut % (Auto) 70.5 % 09/08/22 00:15 Lymph % (Auto) 14.7 % 09/08/22 00:15 [place] % (Auto) 11.9 % 09/08/22 00:15 Eos % (Auto) 2.0 % 09/08/22 00:15 Baso % (Auto) 0.2 % 09/08/22 00:15 Neut # (Auto) 10.35 10^3/uL (1.8-7.7) H 09/08/22 00:15 Lymph # (Auto) 2.2 10^3/uL (0.8-4.8) 09/08/22 00:15 [place] # (Auto) 1.7 10^3/uL (0.2-0.9) H 09/08/22 00:15 Eos # (Auto) 0.3 10^3/uL (0.0-0.8) 09/08/22 00:15 Baso # (Auto) 0.0 10^3/uL (0.0-0.1) 09/08/22 00:15 Nucleated RBC % (auto) 0 % 09/08/22 00:15 Nucleated RBCs # 0.0 /100WBC 09/08/22 00:15 PT 14.90 SECONDS (12.1-14.9) 09/08/22 00:15 INR 1.13 (0.8-1.2) 09/08/22 00:15 Specimen Type Arterial 09/08/22 00:18 Sample Site Brachial, right 09/08/22 00:18 ABG pH 7.28 (7.35-7.45) L 09/08/22 00:18 ABG pCO2 63.6 mmHg (35-45) H* 09/08/22 00:18 ABG pO2 79.4 mmHg (80.0-100.0) L 09/08/22 00:18 ABG HCO3 29.6 mmol/L (22-26) H 09/08/22 00:18 ABG Base Excess 2.2 mmol/L (-2.0-2.0) H 09/08/22 00:18 [place] Test Pos 09/08/22 00:18 Hematocrit 23.9 % (42-52) L 09/08/22 00:18 Hgb O2 Saturation 92.9 % (95-100) L 09/08/22 00:18 Carboxyhemoglobin 2.2 %THgb (0.4-20.1) 09/08/22 00:18 Methemoglobin 0.7 % (0.4-1.5) 09/08/22 00:18 Total Hemoglobin 7.8 g/dL (14-18) L 09/08/22 00:18 O2 Delivery Device Bipap 09/08/22 00:18 FiO2 40.0 % 09/08/22 00:18 PEEP 10.0 cmH20 09/08/22 00:18 Varnish Thinner ID Tunca2 09/08/22 00:18 Sodium 141 mmol/L (136-145) 09/08/22 00:15 Potassium 5.3 mmol/L (3.5-5.1) H 09/08/22 00:15 Chloride 101 mmol/L (98-107) 09/08/22 00:15 Carbon Dioxide 28 mmol/L (22-29) 09/08/22 00:15 Anion Gap 17.3 (5-19) 09/08/22 00:15 BUN 50 mg/dL (8-23) H 09/08/22 00:15 Creatinine 5.4 mg/dL (0.7-1.2) H 09/08/22 00:15 GFR Calculation 10.6 mL/min (90-130) L 09/08/22 00:15 Glucose 160 mg/dL (65-115) H 09/08/22 00:15 POC Glucose 185 mg/dL (70-110) H 09/08/22 00:22 Calculated Osmolality 309 mOsm/kg (285-295) H 09/08/22 00:15 Calcium 7.2 mg/dL (8.5-10.5) L 09/08/22 00:15 Total Bilirubin 0.2 mg/dL (0.15-1.2) 09/08/22 00:15 AST 13 U/L (0-40) 09/08/22 00:15 ALT 15 U/L (0-41) 09/08/22 00:15 Alkaline Phosphatase 137 U/L (40-130) H 09/08/22 00:15 NT-Pro-B Natriuret Pep 1813 pg/mL (0-125) H 09/08/22 00:15 Total Protein 6.5 g/dL (6.6-8.7) L 09/08/22 00:15 Albumin 3.2 g/dL (3.5-5.2) L 09/08/22 00:15 Globulin 3.3 g/dL (1.3-4.6) 09/08/22 00:15 Influenza Type A Ag negative (Negative) 09/08/22 00:17 Influenza Type B Ag negative (Negative) 09/08/22 00:17 SARS-CoV-2 Ag (Rapid) negative (Negative) 09/08/22 00:17 EKG Data EKG 1: I personally reviewed and interpreted this EKG as follows: EKG Interpretation Date: 09/08/22 EKG interpretation time: 00:10 Interpretation: nsr hr [address] or t wave abnormalities qrs 87 qtc 387 Critical Care Time Critical Care Time: Critical Care Time: Yes Total Critical Care Time: 45 Attestation: The high probability of a clinically significant, sudden or life threatening deterioration of the patient's resp/renal system(s) required my full and direct attention, intervention and personal management. The critical care time is as shown. This time is in addition to time spent performing any reported procedures but includes the following: [x] Data and vital sign review and interpretation [x] Patient assessment, examination and intervention [x] Documentation [x] Medication orders and management Discharge Plan Discharge Patient Disposition: Admitted As Inpatient Admit Provider: Abby Fofana Clinical Impression: End-stage renal disease (ESRD), Acute respiratory failure with hypoxemia, Acute exacerbation of chronic obstructive airways disease Condition: Stable Discharge Diet: Advance as tolerated Discharge Activity: Resume usual activity Coding Level of Care Code ED 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
[2022-09-08 00:21] LABS: Basophils % 0.2 %; Eosinophils # 0.3 10^3/uL (0.0-0.8); Hemoglobin 7.6 g/dL (11.7-16.6); Lymphocytes # 2.2 10^3/uL (0.8-4.8); Lymphocytes % 14.7 %; Mean Corpuscular HGB Conc 28.1 g/dL (30.0-36.0); Mean Corpuscular Hemoglobin 24.1 pg (28.0-34.0); Mean Corpuscular Volume 85.7 fl (80-94); Mean Platelet Volume 11.3 fL (7.4-10.4); Monocytes # 1.7 10^3/uL (0.2-0.9); Monocytes % 11.9 %; Neutrophils # 10.35 10^3/uL (1.8-7.7); Neutrophils % 70.5 %; Nucleated Red Blood Cells % 0 %; Platelet Count 517 10^3/cmm (130-400); Red Blood Count 3.15 10^6/uL (4.1-5.3); Red Cell Distribution Width 18.8 % (12.1-15.1); White Blood Count 14.7 10^3/uL (4.0-10.0)
[2022-09-08 00:26] LABS: Glucose Point of Care 185 mg/dL (70-110)
[2022-09-08 00:30] LABS: ABG PCO2 63.6 mmHg (35-45); ABG PH Result 7.28 (7.35-7.45); Arterial Blood Gas Hematocrit 23.9 % (42-52); Base Excess ABG 2.2 mmol/L (-2.0-2.0); Blood Gas Allen Test Pos; Blood Gas Sample Site Brachial, right; Blood Gas Sample Type Arterial; Carboxyhemoglobin 2.2 %THgb (0.4-20.1); HCO3 ABG 29.6 mmol/L (22-26); HGB O2 Sat 92.9 % (95-100); Methemoglobin 0.7 % (0.4-1.5); Oxygen Device BIPAP; PO2 ABG 79.4 mmHg (80.0-100.0); Total Hemoglobin 7.8 g/dL (14-18)
[2022-09-08 00:39] LABS: Influenza A by IFA negative (Negative); Influenza B by IFA negative (Negative); SARS Covid-2 Antigen negative (Negative)
[2022-09-08 00:41] LABS: INR 1.13 (0.8-1.2)
[2022-09-08 00:50] LABS: Alanine Aminotransferase 15 U/L (0-41); Albumin Level 3.2 g/dL (3.5-5.2); Alkaline Phosphatase 137 U/L (40-130); Anion Gap 17.3 (5-19); Aspartate Amino Transferase 13 U/L (0-40); Blood Urea Nitrogen 50 mg/dL (8-23); Calcium 7.2 mg/dL (8.5-10.5); Carbon Dioxide 28 mmol/L (22-29); Chloride 101 mmol/L (98-107); Globulin 3.3 g/dL (1.3-4.6); Glomerular Filtration Rate 10.6 mL/min (90-130); Glucose 160 mg/dL (65-115); NT Pro B Type Natriuretic Pept 1813 pg/mL (0-125); Osmolality Calculated 309 mOsm/kg (285-295); Potassium 5.3 mmol/L (3.5-5.1); Sodium 141 mmol/L (136-145); Total Bilirubin 0.2 mg/dL (0.15-1.2); Total Protein 6.5 g/dL (6.6-8.7)
--- NOTE | 2022-09-08 02:05 | PM.HP ---
Providers/Chief Complaint Admitting Physician: Abby Fofana MD Primary Care Provider: Lovely Ivey MD Chief Complaint: SOB History of Present Illness Artie Quiles is a 67 year old male with past medical history of, CHF, end-stage renal disease, GI bleed, hypertension, pneumonia, UTI, coronary artery disease, anemia, NATHALY, nightly on CPAP, history of CAD, takes a daily aspirin, atrial fibrillation, morbid obesity, HTN, HLD presented to the hospital today for diarrhea and increasing shortness of breath. He states he misses dialysis session this past Wednesday. EMS was called and they placed him on BiPAP. Upon arrival to hospital he was quite tachypneic. Also complained of a slight cough but denies fever vomiting chest pain. Patient was discharged recently from the hospital on 28 August. Patient had a prolonged hospital stay in which she was having difficult to control atrial fibrillation and required amiodarone drip. Not started on any anticoagulation due to history of GI bleed. FOBT was positive and patient refused to get an EGD or colonoscopy at this time and to do it as an outpatient. He was given referral to Dr. Dominguez as an outpatient. He was discharged home on 4 L nasal cannula. Above history obtained from chart and ER doc. When patient seen he is lethargic and not very responsive. Bipap mask had shifted and there was an air leak. aBG obtained which showed slight worsening. Mask switched to larger mask to prevent air leak. Patient having better tidal volumes now. Blake placed at bedside draining clear yellow urine. ED course: 131/59, respiratory 28, pulse 84, temperature 99, saturating 97% on BiPAP. Chest x-ray showed pulmonary vascular congestion, WBC 14.7, hemoglobin 7.6, platelets 517, sodium 141, potassium 5.3, chloride 101, anion gap 17.3, creatinine 5.4, BNP 1800, COVID-negative, flu negative. EKG did not show any acute ischemic changes. Potassium 5.3. ABG showed pH 7.28/63.6/79.4/29.6. Nephrology was consulted from ER. Medications/Allergies Home Medications Medication Instructions Recorded Confirmed Last Taken Type aspirin 81 mg tablet,delayed 81 mg PO DAILY 11/27/20 08/28/22 Unknown History release (Adult Low Dose Aspirin) atorvastatin 80 mg tablet 40 mg PO DAILY 11/27/20 08/28/22 Unknown History cholecalciferol (vitamin D3) 50 50 mcg PO DAILY 11/27/20 08/28/22 Unknown History mcg (2,000 unit) capsule docusate sodium 100 mg capsule 100 mg PO BID PRN Constipation 11/27/20 08/28/22 Unknown History lisinopril 20 mg tablet 10 mg PO DAILY 11/27/20 08/28/22 Unknown History nitroglycerin 0.4 mg sublingual 0.4 mg sublingual Q5M PRN Chest 11/27/20 08/28/22 Unknown History tablet Pain polyethylene glycol 3350 17 17 g PO DAILY PRN Constipation 11/27/20 08/28/22 Unknown History gram/dose oral powder pregabalin 150 mg capsule 150 mg PO BID 11/27/20 08/28/22 Unknown History inhalational spacing device (Allan #1 ea 05/20/21 08/28/22 Unknown Rx Aerosol [place] Enhancer spacer) multivitamin 1 tab PO DAILY 08/11/21 08/28/22 Unknown History guaifenesin 600 mg tablet, 600 mg PO Q12H PRN congestion #60 05/26/22 08/28/22 Unknown Rx extended release 12 hr (Mucinex) tabs albuterol sulfate 90 mcg/actuation 1 inh inhalation QID PRN shortness 06/17/22 08/28/22 Unknown Rx aerosol inhaler (Ventolin HFA) of breath or wheezing #8.5 grams budesonide-formoterol HFA 160 2 puff inhalation BID #10.2 grams 06/17/22 08/28/22 Unknown Rx mcg-4.5 mcg/actuation aerosol inhaler (Symbicort) ipratropium 0.5 mg-albuterol 3 mg 3 ml inhalation Q4H PRN wheezing 06/17/22 08/28/22 Unknown Rx (2.5 mg base)/3 mL nebulization #90 mL soln ipratropium bromide 0.02 % 2.5 ml inhalation Q6H PRN 06/17/22 08/28/22 Unknown History solution for inhalation Shortness Of Breath Or Wheezing tiotropium bromide 18 mcg capsule 1 cap inhalation DAILY #30 06/17/22 08/28/22 Unknown Rx with inhalation device (Spiriva inhalations with HandiHaler) nebulizer accessories #1 ea 06/18/22 08/28/22 Unknown Rx sodium chloride 3 % for 4 ml inhalation BID PRN congestion 06/18/22 08/28/22 Unknown Rx nebulization #240 mL albuterol sulfate 2.5 mg/3 mL 2.5 mg inhalation Q4H PRN 08/21/22 08/28/22 Unknown History (0.083 %) solution for nebulization Shortness Of Breath Or Wheezing ascorbic acid (vitamin C) 500 mg 1,000 mg PO DAILY 08/21/22 08/28/22 Unknown History tablet (Vitamin C) ferrous gluconate 324 mg (38 mg 324 mg PO DAILY 08/21/22 08/28/22 Unknown History iron) tablet fluticasone propionate 50 1 spray intranasal DAILY 08/21/22 08/28/22 Unknown History mcg/actuation nasal spray,suspension lidocaine 5 % topical ointment 1 applic topical DAILY PRN Pain 08/21/22 08/28/22 Unknown History naloxone 4 mg/actuation nasal spray 4 mg intranasal Q3M PRN Opioid 08/21/22 08/28/22 Unknown History Overdose propranolol 80 mg tablet 40 mg PO TID 08/21/22 08/28/22 Unknown History tamsulosin 0.4 mg capsule 0.4 mg PO DAILY 08/21/22 08/28/22 Unknown History vit C 250 mg-vit E 90 mg-zinc 40 1 tab PO BID 08/21/22 08/28/22 Unknown History mg-copper 1 id-uhageq-mjxwte capsule (PreserVision AREDS-2) zinc gluconate 50 mg tablet 50 mg PO DAILY 08/21/22 08/28/22 Unknown History amiodarone 200 mg tablet (Pacerone) 400 mg PO BID #90 tabs 08/27/22 08/28/22 Unknown Rx amoxicillin 875 mg-potassium 1 tab PO BID #10 tabs 08/27/22 08/28/22 Unknown Rx clavulanate 125 mg tablet diltiazem HCl 240 mg 240 mg PO DAILY #60 tabs 08/27/22 08/28/22 Unknown Rx tablet,extended release 24 hr (Cardizem [place]) omeprazole 20 mg capsule,delayed 40 mg PO BIDWMEAL #60 caps 08/28/22 08/28/22 Unknown Rx release hydrocodone 5 mg-acetaminophen 325 1 tab PO Q6H PRN pain #14 tabs 09/08/22 Unknown Rx mg tablet Allergies Allergy/AdvReac Type Severity Reaction Status Date / Time Iodinated Contrast Media Allergy Severe anaphylaxis Verified 08/21/22 09:44 PFSH Acute PFSH: Medical History Abnormal CT scan, kidney Acute anemia Acute encephalopathy Acute respiratory failure with hypoxia EDWIN (acute kidney injury) Atrial fibrillation Chest pain CHF (congestive heart failure) COPD (chronic obstructive pulmonary disease) 2L Coronary artery disease ESRD (end stage renal disease) GI bleed History of type 2 diabetes mellitus Hyperkalemia Hyperkalemia Hyperlipidemia Hypertension Kidney lesion Legally blind NSTEMI (non-ST elevated myocardial infarction) NATHALY (obstructive sleep apnea) Nightly CPAP Pneumonia Pyelonephritis of left kidney Rib fractures Sepsis Septic shock Smoker UTI (urinary tract infection) Surgical History History of heart artery stent Social History Smoking and tobacco status: former smoker Quit status (tobacco): has quit using tobacco Year quit tobacco: August 2020 [id number] Second hand smoke exposure: Yes Smoking risk assessment/counseling performed?: Yes Alcohol intake: never Caregiver/support person: Yes Lives independently: Yes Household members: significant other Marital status: service: Yes Current occupational status: retired and disabled Pets and animals: Yes Current gender identity: Male Vitals/I&O/Wt Last Vital Signs Temp 99.0 F 09/08/22 00:01 Pulse 71 09/08/22 01:30 Resp 20 H 09/08/22 01:30 BP 144/49 09/08/22 01:30 Pulse Ox 89 L 09/08/22 01:30 O2 Del Method 09/08/22 01:30 FiO2 40 09/08/22 00:25 Weight last 48 hrs Weight 160.118 kg Physical Exam Narrative: General: lethargic, not very responsive. does open his eyes to cue otherwise no response. On bipap at this time. HEENT: Normocephalic, atraumatic, breathing BiPAP, appears euvolemic Cardio: Regular rate rhythm, normal S1-S2 Respiratory: BiPAP transmitted breath sounds, mainly clear GI: Abdomen soft, nontender, bowel sounds + Extremities: Trace pitting edema bilateral lower extremities Data 09/08/22 00:15 09/08/22 00:15 A&P Assessment and plan (1) End-stage renal disease (ESRD): (2) Acute respiratory failure with hypoxemia: (3) Acute exacerbation of chronic obstructive airways disease: (4) Hyperlipidemia: (5) Hypertension: Plan #Shortness of breath #Acute hypercapnic respiratory failure requiring BiPAP #End-stage renal disease on dialysis Wednesday #Missed dialysis session on Wednesday #Acute on chronic anemia #Diarrhea #Hyperkalemia, potassium 5.3 #Hypertension #Legally blind #Acute on chronic congestive diastolic heart failure #COPD #History of GI bleed therefore not on any anticoagulation #Recent antibiotic use from previous discharge ? Consult nephrology. BNP 1800. Patient missed dialysis on Wednesday and his next session is due tomorrow on Wednesday ? Creatinine elevated secondary to ESRD ? Check iron panel, TIBC, ferritin. Patient supposed to have EGD colonoscopy done as an outpatient. He was referred to general surgery at discharge 10 days ago. FOBT was positive ? Check C. difficile, stool ova parasite screen, stool culture, blood culture ? Continue on BiPAP for now. Wean as able to nasal cannula ? Leukocytosis most likely reactive versus infection. I will hold off on antibiotics for now till further data available. ? Check procalcitonin ? Patient will need dialysis ? Administer packed RBC if hemoglobin less than 7 -DuoNeb every 6 hours scheduled ? Monitor for fever ? 5.3 potassium acknowledged. Check EKG ? Low threshold for intubation ? X-ray does not show evidence of pneumonia at this time. Image reviewed. We will hold off on antibiotics for now ? Check labs in a.m. CBC, BMP, magnesium, phosphorus ? Check ABG in a.m. ? Continue amiodarone 400 mg daily ? Continue aspirin, atorvastatin, diltiazem, omeprazole, lisinopril ? Pulmicort inhalation twice daily - Solumedrol 40 IV BID - Unable to confirm patient's medications due to mental status. - When seen another ABG was obtained due to patient's lethargy. 7.24/69.7. Bipap settings changed, larger mask placed, air leak minimized. Will repeat another ABG in 1 hour and re-assess, If worse or no change, will transfer patient to ICU and intubate for respiratory failure. Full code SCDs. We will hold off on pharmacological prophylaxis due to anemia Attestations Medical Necessity Statement*: Requires greater than 2 midnight stay for management of diarrhea, shortness of breath secondary to fluid overload due to missed dialysis session.. Other Coding Information Focused coding review requested Diagnoses End-stage renal disease (ESRD) N18.6 Acute respiratory failure with hypoxemia J96.01 Acute exacerbation of chronic obstructive airways disease J44.1 Hyperlipidemia E78.5 Hypertension I10
[2022-09-08 02:47] LABS: ABG PH Result 7.24 (7.35-7.45); Alveolar-Arterial Oxygen Gradi 21.8 mmHg (5-10); Base Excess ABG 2.2 mmol/L (-2.0-2.0); Blood Gas Allen Test Pos; Blood Gas Sample Site Radial, right; Blood Gas Sample Type Arterial; Carboxyhemoglobin 1.8 %THgb (0.4-20.1); HCO3 ABG 30.2 mmol/L (22-26); HGB O2 Sat 91.1 % (95-100); Methemoglobin 0.5 % (0.4-1.5); Oxygen Device BIPAP; Oxygen Saturation ABG 93.2; PO2 ABG 72.7 mmHg (80.0-100.0); Potassium Level - ABG 5.4 mmol/L (3.5-5.0); Total Hemoglobin 7.8 g/dL (14-18)
[2022-09-08 02:54] LABS: ABG PCO2 69.7 mmHg (35-45)
[2022-09-08 02:59] LABS: Ferritin 101 ng/mL (30-400); Iron 14 ug/dL (59-158); Percent Saturation 4.8 % (20-50); Total Iron Binding Capacity 291 mcg/dl; Unsaturated Iron Binding 277 ug/dL (112-347)
[2022-09-08 03:01] LABS: Lactic Sepsis W/Reflex 0.9 mmol/L (0.5-2.2)
[2022-09-08 03:07] LABS: Procalcitonin 0.11 ng/mL (0-0.5)
--- NOTE | 2022-09-08 03:07 | PC.NURSE ---
to see patient, ABGs rechecked. The results were worse but RT changed patients BIPAP mask at this time. wants ABG rechecked at 4:30 and results will determine if patient will require intubation. Called and made Folder Hand aware and to check availablity of ICU bed.
[2022-09-08 04:07] LABS: ABG PH Result 7.24 (7.35-7.45); Arterial Blood Gas Hematocrit 23.3 % (42-52); Base Excess ABG 1.8 mmol/L (-2.0-2.0); Blood Gas Allen Test Pos; Blood Gas Sample Site Radial, left; Blood Gas Sample Type Arterial; Carboxyhemoglobin 1.8 %THgb (0.4-20.1); HCO3 ABG 29.7 mmol/L (22-26); HGB O2 Sat 91.7 % (95-100); Methemoglobin 0.4 % (0.4-1.5); Oxygen Device BIPAP; Oxygen Saturation ABG 93.8; PO2 ABG 74.2 mmHg (80.0-100.0); Potassium Level - ABG 5.6 mmol/L (3.5-5.0); Total Hemoglobin 7.6 g/dL (14-18)
[2022-09-08 04:08] LABS: ABG PCO2 68.8 mmHg (35-45)
--- NOTE | 2022-09-08 04:40 | PC.NURSE ---
Report was called to Miki MATIAS in ICU. Patient was transported to ICU in bed with all belongings and chart. Patient was settled in room 108 in ICU.
[2022-09-08 05:05] LABS: Glucose Point of Care 166 mg/dL (70-110)
--- NOTE | 2022-09-08 05:33 | PC.NURSE ---
Patient arrived on unit with Respiratory and Compensation/Benefits Specialist on Bipap. AO to person and year and asked if he was dying. Saturating well on %40 fio2. Repeat ABG @0600 and call provider with results. Plans for intubation if ABGs continue to decline.
--- NOTE | 2022-09-08 06:10 | PC.NURSE ---
Patient has become more alert throughout time in ICU during this nurse's shift. Patient is asking questions and becoming more agitated about bipap.
[2022-09-08 06:11] LABS: ABG PH Result 7.29 (7.35-7.45); Alveolar-Arterial Oxygen Gradi 18.8 mmHg (5-10); Arterial Blood Gas Hematocrit 23.9 % (42-52); Base Excess ABG 3.2 mmol/L (-2.0-2.0); Blood Gas Allen Test Pos; Blood Gas Sample Site Radial, right; Blood Gas Sample Type Arterial; Carboxyhemoglobin 1.7 %THgb (0.4-20.1); HCO3 ABG 30.5 mmol/L (22-26); HGB O2 Sat 90.7 % (95-100); Methemoglobin 0.2 % (0.4-1.5); Oxygen Device BIPAP; Oxygen Saturation ABG 92.5; PO2 ABG 67.2 mmHg (80.0-100.0); Potassium Level - ABG 5.6 mmol/L (3.5-5.0); Total Hemoglobin 7.8 g/dL (14-18)
[2022-09-08 06:12] LABS: ABG PCO2 63.6 mmHg (35-45)
[2022-09-08] MEDS: ipratropium-albuterol 3 mL Neb INHALATION ×4 (07:46→19:48)
[2022-09-08] MEDS: budesonide 0.5 mg/2 mL Neb INHALATION ×2 (07:46→19:48)
[2022-09-08 08:59] LABS: Hepatitis C Virus Antibody Non-Reactive (Nonreactive)
[2022-09-08 09:06] LABS: Hepatitis B Core AB, Total Non-Reactive (Nonreactive); Hepatitis B Surface Antigen Non-Reactive (Nonreactive)
--- NOTE | 2022-09-08 09:10 | PC.PHAR ---
Addendum entered by Vivian Ernst 09/08/22 11:52: PTS VERIFIED PTS MEDICATIONS WITH ME OVER THE PHONE Original Note: TRYING TO REACH PTS VIRGILIO TO VERIFY HOME MEDS- SHE TAKES CARE OF PTS MEDS
[2022-09-08 09:18] LABS: Hepatitis B Surface AB < 3.5 (11.5-1000)
--- NOTE | 2022-09-08 10:34 | PM.CONSULT ---
Providers/Reason For Consult Consulting Physician/Specialty*: [facility]/nephrology Reason for Consult*: End-stage renal disease Attending Physician: Yoel Cox MD Primary Care Provider: Lovely Ivey MD History of Present Illness History of Present Illness Artie Quiles is a 67 year old male With past medical history of CHF, GI bleed, hypertension, coronary artery disease, sleep apnea on CPAP, history of diabetes, A-fib was recently admitted to the hospital and was declared ESRD and was started on hemodialysis. He was recently discharged from the hospital on 08/28/2022. Patient was sent to the hospital due to being lethargic and initial ABG showed pH of 7.2 with a PCO2 of 63. Other labs include hemoglobin of 7.6 potassium was 5.3. Patient missed hemodialysis on Wednesday Medications/Allergies Home Medications Medication Instructions Recorded Confirmed Last Taken Type aspirin 81 mg tablet,delayed 81 mg PO DAILY 11/27/20 08/28/22 Unknown History release (Adult Low Dose Aspirin) atorvastatin 80 mg tablet 40 mg PO DAILY 11/27/20 08/28/22 Unknown History cholecalciferol (vitamin D3) 50 50 mcg PO DAILY 11/27/20 08/28/22 Unknown History mcg (2,000 unit) capsule docusate sodium 100 mg capsule 100 mg PO BID PRN Constipation 11/27/20 08/28/22 Unknown History lisinopril 20 mg tablet 10 mg PO DAILY 11/27/20 08/28/22 Unknown History nitroglycerin 0.4 mg sublingual 0.4 mg sublingual Q5M PRN Chest 11/27/20 08/28/22 Unknown History tablet Pain polyethylene glycol 3350 17 17 g PO DAILY PRN Constipation 11/27/20 08/28/22 Unknown History gram/dose oral powder pregabalin 150 mg capsule 150 mg PO BID 11/27/20 08/28/22 Unknown History inhalational spacing device (Allan #1 ea 05/20/21 08/28/22 Unknown Rx Aerosol [place] Enhancer spacer) multivitamin 1 tab PO DAILY 08/11/21 08/28/22 Unknown History guaifenesin 600 mg tablet, 600 mg PO Q12H PRN congestion #60 05/26/22 08/28/22 Unknown Rx extended release 12 hr (Mucinex) tabs albuterol sulfate 90 mcg/actuation 1 inh inhalation QID PRN shortness 06/17/22 08/28/22 Unknown Rx aerosol inhaler (Ventolin HFA) of breath or wheezing #8.5 grams budesonide-formoterol HFA 160 2 puff inhalation BID #10.2 grams 06/17/22 08/28/22 Unknown Rx mcg-4.5 mcg/actuation aerosol inhaler (Symbicort) ipratropium 0.5 mg-albuterol 3 mg 3 ml inhalation Q4H PRN wheezing 06/17/22 08/28/22 Unknown Rx (2.5 mg base)/3 mL nebulization #90 mL soln ipratropium bromide 0.02 % 2.5 ml inhalation Q6H PRN 06/17/22 08/28/22 Unknown History solution for inhalation Shortness Of Breath Or Wheezing tiotropium bromide 18 mcg capsule 1 cap inhalation DAILY #30 06/17/22 08/28/22 Unknown Rx with inhalation device (Spiriva inhalations with HandiHaler) nebulizer accessories #1 ea 06/18/22 08/28/22 Unknown Rx sodium chloride 3 % for 4 ml inhalation BID PRN congestion 06/18/22 08/28/22 Unknown Rx nebulization #240 mL albuterol sulfate 2.5 mg/3 mL 2.5 mg inhalation Q4H PRN 08/21/22 08/28/22 Unknown History (0.083 %) solution for nebulization Shortness Of Breath Or Wheezing ascorbic acid (vitamin C) 500 mg 1,000 mg PO DAILY 08/21/22 08/28/22 Unknown History tablet (Vitamin C) ferrous gluconate 324 mg (38 mg 324 mg PO DAILY 08/21/22 08/28/22 Unknown History iron) tablet fluticasone propionate 50 1 spray intranasal DAILY 08/21/22 08/28/22 Unknown History mcg/actuation nasal spray,suspension lidocaine 5 % topical ointment 1 applic topical DAILY PRN Pain 08/21/22 08/28/22 Unknown History naloxone 4 mg/actuation nasal spray 4 mg intranasal Q3M PRN Opioid 08/21/22 08/28/22 Unknown History Overdose propranolol 80 mg tablet 40 mg PO TID 08/21/22 08/28/22 Unknown History tamsulosin 0.4 mg capsule 0.4 mg PO DAILY 08/21/22 08/28/22 Unknown History vit C 250 mg-vit E 90 mg-zinc 40 1 tab PO BID 08/21/22 08/28/22 Unknown History mg-copper 1 be-itgcox-ntdema capsule (PreserVision AREDS-2) zinc gluconate 50 mg tablet 50 mg PO DAILY 08/21/22 08/28/22 Unknown History amiodarone 200 mg tablet (Pacerone) 400 mg PO BID #90 tabs 08/27/22 08/28/22 Unknown Rx amoxicillin 875 mg-potassium 1 tab PO BID #10 tabs 08/27/22 08/28/22 Unknown Rx clavulanate 125 mg tablet diltiazem HCl 240 mg 240 mg PO DAILY #60 tabs 08/27/22 08/28/22 Unknown Rx tablet,extended release 24 hr (Cardizem LA) omeprazole 20 mg capsule,delayed 40 mg PO BIDWMEAL #60 caps 08/28/22 08/28/22 Unknown Rx release hydrocodone 5 mg-acetaminophen 325 1 tab PO Q6H PRN pain #14 tabs 09/08/22 Unknown Rx mg tablet Allergies Allergy/AdvReac Type Severity Reaction Status Date / Time Iodinated Contrast Media Allergy Severe anaphylaxis Verified 09/08/22 05:22 Current Medications Generic Name Dose Route Start Last Admin Trade Name Freq PRN Reason Stop Dose Admin Albuterol/Ipratropium 3 ml 09/08/22 08:00 09/08/22 07:46 Ipratropium-Albuterol 3 Ml Neb INHALATION 3 ml QID.RESPIRATORY SHANTE Administration Budesonide 0.5 mg 09/08/22 08:00 09/08/22 07:46 Budesonide 0.5 Mg/2 Ml Neb INHALATION 0.5 mg BID.RESPIRATORY SHANTE Administration Methylprednisolone Sodium Succinate 40 mg 09/08/22 02:30 09/08/22 03:32 Methylprednisolone Sod Succ 40 Mg/Ml Inj IVP 40 mg Q12H SHANTE Administration PFSH Acute PFSH: Medical History Abnormal CT scan, kidney Acute anemia Acute encephalopathy Acute respiratory failure with hypoxia EDWIN (acute kidney injury) Atrial fibrillation Chest pain CHF (congestive heart failure) COPD (chronic obstructive pulmonary disease) 2L Coronary artery disease ESRD (end stage renal disease) GI bleed History of type 2 diabetes mellitus Hyperkalemia Hyperkalemia Hyperlipidemia Hypertension Kidney lesion Legally blind NSTEMI (non-ST elevated myocardial infarction) NATHALY (obstructive sleep apnea) Nightly CPAP Pneumonia Pyelonephritis of left kidney Rib fractures Sepsis Septic shock Smoker UTI (urinary tract infection) Surgical History History of heart artery stent Social History Smoking and tobacco status: former smoker Quit status (tobacco): has quit using tobacco Year quit tobacco: August 2020 [id number] Second hand smoke exposure: Yes Smoking risk assessment/counseling performed?: Yes Alcohol intake: never Caregiver/support person: Yes Lives independently: Yes Household members: significant other Marital status: service: Yes Current occupational status: retired and disabled Pets and animals: Yes Current gender identity: Male Vitals/I&O/Wt Last Vital Signs Temp 97.9 F 09/08/22 09:37 Pulse 66 09/08/22 09:37 Resp 12 09/08/22 09:37 BP 128/65 09/08/22 09:37 Pulse Ox 94 09/08/22 09:01 O2 Del Method 09/08/22 07:45 FiO2 40 09/08/22 09:01 09/07/22 09/08/22 09/08/22 22:59 06:59 14:59 Output Total 300 / 300 Balance -300 / -300 Weight last 48 hrs Weight 160.118 kg Physical Exam Narrative: Awake alert, no acute distress Clear to auscultation per report S1-S2 per report 2+ edema Urinary Catheter Management: Blake: Cath Placed During This Visit: yes Reason for Continuing Indwelling Catheter: Accurate Measurement of Urinary Output in Critically Ill Patients Urinary Catheter Date of Insertion: 09/08/22 Urinary Catheter Time of Insertion: 02:58 Data 09/08/22 00:15 09/08/22 00:15 A&P Assessment and plan (1) End-stage renal disease (ESRD): Plan 1. End-stage renal disease: Recently started on dialysis, missed HD on Wednesday, now presents with volume overload hyperkalemia. Plan for HD today 2. Acute on chronic respiratory failure: Multifactorial, hypercapnic, history of COPD, sleep apnea, volume overload in the background history of CHF. On BiPAP. 3. Hyperkalemia: HD as above, low potassium diet 4. Hypertension: Blood pressure controlled 5. Anemia: We will give a dose of Epogen today 4. MBD: We will place phosphate binders Patient evaluated using audiovisual cart. Time spent 45 minutes Consult Attestations Medical Necessity Statement: Per medicine team. Coding Level of Care Code Acute Code for g Fwd Diagnoses End-stage renal disease (ESRD) N18.6
[2022-09-08] MEDS: epoetin alfa 1000 Unit/0.05 mL (ESRD) 20000 UNIT SUBCUT (14:12)
--- NOTE | 2022-09-08 14:18 | PM.MISC ---
Miscellaneous Note Note: Overnight vitals and labs have been reviewed, HPI reviewed, patient is scheduled for hemodialysis today, currently doing well on BiPAP.
[2022-09-08] MEDS: lidocaine 5% Patch 1 PATCH TOPICAL (20:48)
[2022-09-09] VITALS (55 sets, daily range): BP systolic 89–176; BP diastolic 40–89; PULSE 67–93; RESP 15–32; TEMP 36.4–37.2; O2SAT 88–98
[2022-09-09 02:23] LABS: Basophils % 0.1 %; Hemoglobin 7.5 g/dL (11.7-16.6); Lymphocytes # 1.3 10^3/uL (0.8-4.8); Lymphocytes % 10.6 %; Mean Corpuscular HGB Conc 28.8 g/dL (30.0-36.0); Mean Corpuscular Hemoglobin 24.5 pg (28.0-34.0); Monocytes # 0.6 10^3/uL (0.2-0.9); Monocytes % 5.3 %; Neutrophils % 83.3 %; Nucleated Red Blood Cells % 0 %; Platelet Count 450 10^3/cmm (130-400); Red Blood Count 3.06 10^6/uL (4.1-5.3); Red Cell Distribution Width 18.6 % (12.1-15.1)
[2022-09-09 02:52] LABS: Alanine Aminotransferase 14 U/L (0-41); Alkaline Phosphatase 115 U/L (40-130); Anion Gap 15.9 (5-19); Aspartate Amino Transferase 13 U/L (0-40); Blood Urea Nitrogen 38 mg/dL (8-23); Calcium 7.9 mg/dL (8.5-10.5); Carbon Dioxide 28 mmol/L (22-29); Chloride 101 mmol/L (98-107); Globulin 3.5 g/dL (1.3-4.6); Glucose 205 mg/dL (65-115); Magnesium 1.7 mg/dL (1.7-2.3); Osmolality Calculated 305 mOsm/kg (285-295); Phosphorus 4.1 mg/dL (2.5-4.5); Potassium 4.9 mmol/L (3.5-5.1); Sodium 140 mmol/L (136-145); Total Bilirubin 0.2 mg/dL (0.15-1.2); Total Protein 6.5 g/dL (6.6-8.7)
[2022-09-09] MEDS: lisinopril 10 mg Tablet PO (08:37)
[2022-09-09] MEDS: atorvastatin 40 mg Tablet PO (08:37)
[2022-09-09] MEDS: dilTIAZem 60 mg Tablet 120 MG PO ×2 (08:49→18:36)
[2022-09-09] MEDS: budesonide 0.5 mg/2 mL Neb INHALATION ×2 (09:03→20:12)
[2022-09-09] MEDS: ipratropium-albuterol 3 mL Neb INHALATION ×3 (09:04→20:12)
--- NOTE | 2022-09-09 11:48 | PM.PN ---
Subjective Subjective: denies any complaints Medications: Reviewed: Yes Vitals/I&O/Wt Last Vital Signs Temp 98.9 F 09/09/22 00:00 Pulse 77 09/09/22 08:00 Resp 16 09/09/22 08:00 BP 153/58 09/09/22 08:00 Pulse Ox 94 09/09/22 08:00 O2 Del Method High Flow Nasal Cannula 09/09/22 08:00 O2 Flow Rate 4 09/09/22 08:00 FiO2 40 09/09/22 07:00 09/08/22 09/09/22 09/09/22 22:59 06:59 14:59 Intake Total 200 / 500 100 / 600 240 / 240 Output Total 350 / 3650 150 / 3800 Balance -150 / -3150 -50 / -3200 240 / 240 Weight last 48 hrs Weight 169.4 kg Weight 160.118 kg Physical Exam Narrative: Awake alert, no acute distress Clear to auscultation per report S1-S2 per report 2+ edema Urinary Catheter Management: Blake: Cath Placed During This Visit: yes Reason for Continuing Indwelling Catheter: Accurate Measurement of Urinary Output in Critically Ill Patients Urinary Catheter Date of Insertion: 09/08/22 Urinary Catheter Time of Insertion: 02:58 Data 09/09/22 02:07 09/09/22 02:07 A&P Assessment and plan (1) End-stage renal disease (ESRD): Plan 1. End-stage renal disease: Recently started on dialysis, missed HD on Wednesday, now presents with volume overload hyperkalemia. S/p HD yesterday , Next HD in [place] 2. Acute on chronic respiratory failure: Multifactorial, hypercapnic, history of COPD, sleep apnea, volume overload in the background history of CHF. On BiPAP. 3. Hyperkalemia: HD as above, low potassium diet 4. Hypertension: Blood pressure controlled 5. Anemia: We will give a dose of Epogen today 4. MBD: We will place phosphate binders Patient evaluated using audiovisual cart. Time spent 45 minutes Attestations Medical Necessity Statement*: per medicine team Coding Level of Care Code Acute Code for Chg Fwd Diagnoses End-stage renal disease (ESRD) N18.6
--- NOTE | 2022-09-09 13:25 | PM.PN ---
Subjective Subjective: Patient was seen and examined this morning, currently saturating well on nasal cannula, denied any significant complaint, has been dialyzed yesterday, nephrology intends to dialyze patient again tomorrow in the morning for volume overload.His blood pressure was elevated Home antihypertensive medications has been reinitiated. Medications: Reviewed: Yes Medication Review Details: Generic Name Dose Route Start Last Admin Trade Name Petra PRN Reason Stop Dose Admin Albuterol Sulfate 2.5 mg 09/09/22 12:00 09/09/22 11:47 Albuterol 2.5 Mg /3 Ml Neb INHALATION Not Given QID.RESPIRATORY S CH Albuterol/Ipratrop ium 3 ml 09/08/22 08:00 09/09/22 11:48 Ipratropium-Albu terol 3 Ml Neb INHALATION Not Given QID.RESPIRATORY S CH Atorvastatin Calci um 40 mg 09/09/22 09:00 09/09/22 08:37 Atorvastatin 40 Mg Tablet PO 40 mg DAILY SHANTE Administration Budesonide 0.5 mg 09/08/22 08:00 09/09/22 09:03 Budesonide 0.5 M g/2 Ml Neb INHALATION 0.5 mg BID.RESPIRATORY S CH Administration Diltiazem HCl 120 mg 09/09/22 09:00 09/09/22 08:49 Diltiazem 60 Mg Tablet PO 120 mg BID SHANTE Administration Lidocaine 1 patch 09/08/22 21:00 09/09/22 11:20 Lidocaine 5% Pat ch TOPICAL Not Given [id number] SHANTE Lisinopril 10 mg 09/09/22 09:00 09/09/22 08:37 Lisinopril 10 Mg Tablet PO 10 mg DAILY SHANTE Administration Methylprednisolone Sodium Succinate 40 mg 09/08/22 02:30 09/09/22 01:53 Methylprednisolo ne Sod Succ 40 Mg/ Ml Inj IVP 40 mg Q12H SHANTE Administration Non-Formulary Medi cation 240 mg 09/09/22 09:00 09/09/22 08:34 Diltiazem Hcl [C ardizem La] PO Not Given DAILY SHANTE Vitals/I&O/Wt Last Vital Signs Temp 97.7 F 09/09/22 12:13 Pulse 83 09/09/22 12:00 Resp 23 H 09/09/22 12:00 BP 162/63 09/09/22 12:00 Pulse Ox 92 09/09/22 12:00 O2 Del Method Nasal Cannula 09/09/22 12:00 O2 Flow Rate 4 09/09/22 12:00 FiO2 40 09/09/22 07:00 09/08/22 09/09/22 09/09/22 22:59 06:59 14:59 Intake Total 200 / 500 100 / 600 240 / 240 Output Total 350 / 3650 150 / 3800 Balance -150 / -3150 -50 / -3200 240 / 240 Weight last 48 hrs Weight 169.4 kg Weight 160.118 kg Physical Exam Const: COMMON NORMALS: patient oriented x3 Resp: COMMON NORMALS: clear to auscultation bilaterally AUSCULTATION: clear to auscultation bilaterally OTHER: Diminished air entry bilaterally Cardio: COMMON NORMALS: regular rate, regular rhythm, S1 normal heart sound present, S2 normal heart sound present, No gallops present (Cardio), No murmurs present (Cardio), No rub (Cardio) and Peripheral pulses 2+ throughout RATE: regular rate RHYTHM: regular rhythm HEART SOUNDS: S1 normal heart sound present and S2 normal heart sound present PERIPHERAL PULSES: Peripheral pulses 2+ throughout GI: COMMON NORMALS: Normal to inspection, nondistended, normoactive bowel sounds present, Soft to palpation, non-tender, No hepatosplenomegaly present and no masses AUSCULTATION: Yes normoactive bowel sounds PALPATION: Yes Soft to palpation and Yes No hepatosplenomegaly present RECTAL EXAM: Yes deferred Extremity: COMMON NORMALS: no clubbing, cyanosis or edema and no pedal edema Neuro: COMMON NORMALS: patient oriented x3 Urinary Catheter Management: Blake: Cath Placed During This Visit: yes Reason for Continuing Indwelling Catheter: Accurate Measurement of Urinary Output in Critically Ill Patients Urinary Catheter Date of Insertion: 09/08/22 Urinary Catheter Time of Insertion: 02:58 Data 09/09/22 02:07 09/09/22 02:07 A&P Assessment and plan (1) End-stage renal disease (ESRD): (2) Acute respiratory failure with hypoxemia: (3) Acute exacerbation of chronic obstructive airways disease: (4) Hyperlipidemia: (5) Hypertension: (6) Volume overload: Plan #Shortness of breath #Acute hypercapnic respiratory failure requiring BiPAP #End-stage renal disease on dialysis Wednesday #Missed dialysis session on Wednesday #Acute on chronic anemia #Diarrhea #Hyperkalemia, potassium 5.3 #Hypertension #Legally blind #Acute on chronic congestive diastolic heart failure #COPD #History of GI bleed therefore not on any anticoagulation #Recent antibiotic use from previous discharge ? Consult nephrology. BNP 1800. Patient missed dialysis on Wednesday and his next session is due tomorrow on Wednesday ? Creatinine elevated secondary to ESRD ? Check iron panel, TIBC, ferritin. Patient supposed to have EGD colonoscopy done as an outpatient. He was referred to general surgery at discharge 10 days ago. FOBT was positive ? Check C. difficile, stool ova parasite screen, stool culture, blood culture ? Continue on BiPAP for now. Wean as able to nasal cannula ? Leukocytosis most likely reactive versus infection. I will hold off on antibiotics for now till further data available. ? Check procalcitonin ? Patient will need dialysis ? Administer packed RBC if hemoglobin less than 7 -DuoNeb every 6 hours scheduled ? Monitor for fever ? 5.3 potassium acknowledged. Check EKG ? Low threshold for intubation ? X-ray does not show evidence of pneumonia at this time. Image reviewed. We will hold off on antibiotics for now ? Check labs in a.m. CBC, BMP, magnesium, phosphorus ? Check ABG in a.m. ? Continue amiodarone 400 mg daily ? Continue aspirin, atorvastatin, diltiazem, omeprazole, lisinopril ? Pulmicort inhalation twice daily - Solumedrol 40 IV BID - Unable to confirm patient's medications due to mental status. - When seen another ABG was obtained due to patient's lethargy. 7.24/69.7. Bipap settings changed, larger mask placed, air leak minimized. Will repeat another ABG in 1 hour and re-assess, If worse or no change, will transfer patient to ICU and intubate for respiratory failure. Full code SCDs. We will hold off on pharmacological prophylaxis due to anemia Attestations Medical Necessity Statement*: Patient is to be in hospital for management of volume overload need for hemodialysis. Coding Level of Care Code 99515 Diagnoses End-stage renal disease (ESRD) N18.6 Acute respiratory failure with hypoxemia J96.01 Acute exacerbation of chronic obstructive airways disease J44.1 Hyperlipidemia E78.5 Hypertension I10 Volume overload E87.70
[2022-09-09] MEDS: lidocaine 5% Patch 1 PATCH TOPICAL (21:11)
[2022-09-10] VITALS (31 sets, daily range): BP systolic 95–137; BP diastolic 38–81; PULSE 66–122; RESP 14–26; TEMP 36.7–37.4; O2SAT 90–97
[2022-09-10] MEDS: ipratropium-albuterol 3 mL Neb INHALATION ×2 (08:08→15:02)
[2022-09-10] MEDS: budesonide 0.5 mg/2 mL Neb INHALATION (08:09)
[2022-09-10 09:18] LABS: Hemoglobin 8.4 g/dL (11.7-16.6); Lymphocytes # 0.8 10^3/uL (0.8-4.8); Lymphocytes % 7.1 %; Mean Corpuscular Hemoglobin 24.6 pg (28.0-34.0); Mean Corpuscular Volume 81.9 fl (80-94); Monocytes # 0.5 10^3/uL (0.2-0.9); Monocytes % 4.7 %; Neutrophils # 9.57 10^3/uL (1.8-7.7); Neutrophils % 87.4 %; Nucleated Red Blood Cells # 0.1 /100WBC; Nucleated Red Blood Cells % 0.8 %; Platelet Count 501 10^3/cmm (130-400); Red Blood Count 3.42 10^6/uL (4.1-5.3); Red Cell Distribution Width 18.6 % (12.1-15.1)
[2022-09-10 09:39] LABS: Anion Gap 17.7 (5-19); Blood Urea Nitrogen 65 mg/dL (8-23); Calcium 8.4 mg/dL (8.5-10.5); Carbon Dioxide 27 mmol/L (22-29); Chloride 102 mmol/L (98-107); Glomerular Filtration Rate 14.6 mL/min (90-130); Glucose 217 mg/dL (65-115); Osmolality Calculated 319 mOsm/kg (285-295); Potassium 4.7 mmol/L (3.5-5.1); Sodium 142 mmol/L (136-145)
[2022-09-10] MEDS: atorvastatin 40 mg Tablet PO (09:40)
--- NOTE | 2022-09-10 10:53 | PM.PN ---
Subjective Subjective: No new complaints Medications: Reviewed: Yes Vitals/I&O/Wt Last Vital Signs Temp 98.0 F 09/10/22 09:57 Pulse 81 09/10/22 09:30 Resp 16 09/10/22 08:00 BP 121/80 09/10/22 09:30 Pulse Ox 92 09/10/22 09:30 O2 Del Method Nasal Cannula 09/10/22 09:30 O2 Flow Rate 4 09/10/22 09:30 FiO2 40 09/10/22 01:00 09/09/22 09/10/22 09/10/22 22:59 06:59 14:59 Intake Total 240 / 600 200 / 800 240 / 240 Output Total 600 / 750 400 / 1150 Balance -360 / -150 -200 / -350 240 / 240 Weight last 48 hrs Weight 169.4 kg Physical Exam Narrative: Awake alert, no acute distress Clear to auscultation per report S1-S2 per report 2+ edema Urinary Catheter Management: Blake: Cath Placed During This Visit: yes Reason for Continuing Indwelling Catheter: Accurate Measurement of Urinary Output in Critically Ill Patients Urinary Catheter Date of Insertion: 09/08/22 Urinary Catheter Time of Insertion: 02:58 Data 09/10/22 09:02 09/10/22 09:02 Micro: Microbiology 09/09/22 10:00 C.difficile Toxin B Gene (PCR) - Final Stool Routine Collection A&P Assessment and plan (1) End-stage renal disease (ESRD): Plan 1. End-stage renal disease: Recently started on dialysis, missed HD on Wednesday, presented with with volume overload hyperkalemia. S/p HD on Wednesday and HD again today. 2. Acute on chronic respiratory failure: Multifactorial, hypercapnic, history of COPD, sleep apnea, volume overload in the background history of CHF. On BiPAP. 3. Hyperkalemia: HD as above, low potassium diet 4. Hypertension: Blood pressure controlled 5. Anemia: Status post Epogen 4. MBD: Continue with phosphate binders Patient evaluated using audiovisual cart. Time spent 45 minutes Attestations Medical Necessity Statement*: Per medicine team Coding Level of Care Code Acute Code for Chg Fwd Diagnoses End-stage renal disease (ESRD) N18.6
--- NOTE | 2022-09-10 12:50 | P.DS_ITS ---
Discharge Providers Date of Admission: 09/08/22 02:14 Date of Discharge: September 10, 2022 Attending Provider at Admission: Abby Fofana MD Attending Provider at Discharge: Yoel Cox MD Primary Care Provider: Lovely Ivey MD Diagnoses at Discharge Discharge Diagnosis (1) End-stage renal disease (ESRD): Status: Acute Reason for Visit Reason for Visit: SOB Hospital Course Hospital Course Artie Quiles is a 67 year old male with past medical history of, CHF, end- stage renal disease, GI bleed, hypertension, pneumonia, UTI, coronary artery disease, anemia, NATHALY, nightly on CPAP, history of CAD, takes a daily aspirin, atrial fibrillation, morbid obesity, HTN, HLD presented to the hospital today for diarrhea and increasing shortness of breath.? He states he misses dialysis session this past Wednesday. He was admitted for the management of hypercapnic respiratory failure, volume overload secondary to missed dialysis, patient was kept on BiPAP, routine hemodialysis was continued, to which he responded well, at the time of discharge he was not having any significant shortness of breath, he was alert awake oriented holding good conversation denied, significant complaints, patient was also managed for hyperkalemia, resolved with hemodialysis.Overall patient responded well to above medical management.Stool C. difficile PCR was negative.Overall patient responded well to above medical management and was discharged in stable condition to home.He will continue to follow with pulmonary PCP as outpatient. Physical Exam Const: COMMON NORMALS: patient oriented x3 Resp: COMMON NORMALS: clear to auscultation bilaterally AUSCULTATION: clear to auscultation bilaterally OTHER: Diminished air entry bilaterally Cardio: COMMON NORMALS: regular rate, regular rhythm, S1 normal heart sound present, S2 normal heart sound present, No gallops present (Cardio), No murmurs present (Cardio), No rub (Cardio) and Peripheral pulses 2+ throughout RATE: regular rate RHYTHM: regular rhythm HEART SOUNDS: S1 normal heart sound present and S2 normal heart sound present PERIPHERAL PULSES: Peripheral pulses 2+ throughout GI: COMMON NORMALS: Normal to inspection, nondistended, normoactive bowel sounds present, Soft to palpation, non-tender, No hepatosplenomegaly present and no masses AUSCULTATION: Yes normoactive bowel sounds PALPATION: Yes Soft to palpation and Yes No hepatosplenomegaly present RECTAL EXAM: Yes deferred Extremity: COMMON NORMALS: no clubbing, cyanosis or edema and no pedal edema Neuro: COMMON NORMALS: patient oriented x3 Urinary Catheter Management: Blake: Cath Placed During This Visit: yes Reason for Continuing Indwelling Catheter: Accurate Measurement of Urinary Output in Critically Ill Patients Urinary Catheter Date of Insertion: 09/08/22 Urinary Catheter Time of Insertion: 02:58 Discharge Data Studies Completed and Pending Completed Studies During Hospitalization Category Date Time Status XR chest 1V portable [id number] Stat Exams 09/08/22 00:07 Completed Pending at discharge Category Date Time Status Arterial Blood Gas Full AM LABS Lab 09/09/22 04:00 Ordered Clostridioides Difficile PCR Routine Lab 09/09/22 10:00 Results Sputum Culture and Gram Stain Stat Lab 09/09/22 11:26 Received Stool Culture, Bacterial [Enteric Bacterial Panel by Lab 09/09/22 10:00 Results PCR] Routine stool Ova and Parasite [Enteric Parasite Panel by PCR] Lab 09/09/22 10:00 Received Routine Radiology Impressions Chest X-Ray 09/08/22 00:07 IMPRESSION: 1. No focal acute pulmonary disease. 2. No change from comparison. Laboratory Results WBC 11.0 10^3/uL (4.0-10.0) H 09/10/22 09:02 RBC 3.42 10^6/uL (4.1-5.3) L 09/10/22 09:02 Hgb 8.4 g/dL (11.7-16.6) L 09/10/22 09:02 Hct 28.0 % (42.0-52.0) L 09/10/22 09:02 MCV 81.9 fl (80-94) 09/10/22 09:02 MCH 24.6 pg (28.0-34.0) L 09/10/22 09:02 MCHC 30.0 g/dL (30.0-36.0) 09/10/22 09:02 RDW 18.6 % (12.1-15.1) H 09/10/22 09:02 Plt Count 501 10^3/cmm (130-400) H 09/10/22 09:02 MPV 11.0 fL (7.4-10.4) H 09/10/22 09:02 Neut % (Auto) 87.4 % 09/10/22 09:02 Lymph % (Auto) 7.1 % 09/10/22 09:02 [place] % (Auto) 4.7 % 09/10/22 09:02 Eos % (Auto) 0.0 % 09/10/22 09:02 Baso % (Auto) 0.0 % 09/10/22 09:02 Neut # (Auto) 9.57 10^3/uL (1.8-7.7) H 09/10/22 09:02 Lymph # (Auto) 0.8 10^3/uL (0.8-4.8) 09/10/22 09:02 [place] # (Auto) 0.5 10^3/uL (0.2-0.9) 09/10/22 09:02 Eos # (Auto) 0.0 10^3/uL (0.0-0.8) 09/10/22 09:02 Baso # (Auto) 0.0 10^3/uL (0.0-0.1) 09/10/22 09:02 Nucleated RBC % (auto) 0.8 % 09/10/22 09:02 Nucleated RBCs # 0.1 /100WBC 09/10/22 09:02 PT 14.90 SECONDS (12.1-14.9) 09/08/22 00:15 INR 1.13 (0.8-1.2) 09/08/22 00:15 Specimen Type Arterial 09/08/22 06:00 Sample Site Radial, right 09/08/22 06:00 ABG pH 7.29 (7.35-7.45) L 09/08/22 06:00 ABG pCO2 63.6 mmHg (35-45) H* 09/08/22 06:00 ABG pO2 67.2 mmHg (80.0-100.0) L 09/08/22 06:00 ABG HCO3 30.5 mmol/L (22-26) H 09/08/22 06:00 ABG O2 Saturation 92.5 09/08/22 06:00 ABG Base Excess 3.2 mmol/L (-2.0-2.0) H 09/08/22 06:00 [place] Test Pos 09/08/22 06:00 A-a O2 Gradient 18.8 mmHg (5-10) H 09/08/22 06:00 Hematocrit 23.9 % (42-52) L 09/08/22 06:00 Hgb O2 Saturation 90.7 % (95-100) L 09/08/22 06:00 Carboxyhemoglobin 1.7 %THgb (0.4-20.1) 09/08/22 06:00 Methemoglobin 0.2 % (0.4-1.5) L 09/08/22 06:00 Total Hemoglobin 7.8 g/dL (14-18) L 09/08/22 06:00 Sodium 141.0 mmol/L (131-143) 09/08/22 06:00 Potassium 5.6 mmol/L (3.5-5.0) H 09/08/22 06:00 Glucose 157.0 mg/dL (70-115) H 09/08/22 06:00 Ionized Calcium 1.0 mmol/L (1.1-1.4) L 09/08/22 06:00 O2 Delivery Device Bipap 09/08/22 06:00 FiO2 40.0 % 09/08/22 06:00 PEEP 10.0 cmH20 09/08/22 02:35 Administrative Assistant Data Entry ID ellpe 09/08/22 06:00 Sodium 142 mmol/L (136-145) 09/10/22 09:02 Potassium 4.7 mmol/L (3.5-5.1) 09/10/22 09:02 Chloride 102 mmol/L (98-107) 09/10/22 09:02 Carbon Dioxide 27 mmol/L (22-29) 09/10/22 09:02 Anion Gap 17.7 (5-19) 09/10/22 09:02 BUN 65 mg/dL (8-23) H 09/10/22 09:02 Creatinine 4.1 mg/dL (0.7-1.2) H 09/10/22 09:02 GFR Calculation 14.6 mL/min (90-130) L 09/10/22 09:02 Glucose 217 mg/dL (65-115) H 09/10/22 09:02 POC Glucose 166 mg/dL (70-110) H 09/08/22 05:02 Calculated Osmolality 319 mOsm/kg (285-295) H 09/10/22 09:02 Lactic Acid 0.9 mmol/L (0.5-2.2) 09/08/22 00:15 Calcium 8.4 mg/dL (8.5-10.5) L 09/10/22 09:02 Phosphorus 4.1 mg/dL (2.5-4.5) 09/09/22 02:07 Magnesium 1.7 mg/dL (1.7-2.3) 09/09/22 02:07 Iron 14 ug/dL (59-158) L 09/08/22 00:15 Iron Cancelled 09/08/22 00:15 TIBC 291 mcg/dl 09/08/22 00:15 % Saturation 4.8 % (20-50) L 09/08/22 00:15 Unsat Iron Binding 277 ug/dL (112-347) 09/08/22 00:15 Ferritin 101 ng/mL (30-400) 09/08/22 00:15 Total Bilirubin 0.2 mg/dL (0.15-1.2) 09/09/22 02:07 AST 13 U/L (0-40) 09/09/22 02:07 ALT 14 U/L (0-41) 09/09/22 02:07 Alkaline Phosphatase 115 U/L (40-130) 09/09/22 02:07 NT-Pro-B Natriuret Pep 1813 pg/mL (0-125) H 09/08/22 00:15 Total Protein 6.5 g/dL (6.6-8.7) L 09/09/22 02:07 Albumin 3.0 g/dL (3.5-5.2) L 09/09/22 02:07 Globulin 3.5 g/dL (1.3-4.6) 09/09/22 02:07 Procalcitonin 0.11 ng/mL (0-0.5) 09/08/22 00:15 Hep Bs Antigen Non-reactive (Nonreactive) 09/08/22 00:15 Hep Bs Antibody < 3.5 (11.5-1000) L 09/08/22 00:15 Hep B Core Total Ab Non-reactive (Nonreactive) 09/08/22 00:15 Hepatitis C Antibody Non-reactive (Nonreactive) 09/08/22 00:15 Influenza Type A Ag negative (Negative) 09/08/22 00:17 Influenza Type B Ag negative (Negative) 09/08/22 00:17 SARS-CoV-2 Ag (Rapid) negative (Negative) 09/08/22 00:17 Vitals Last Vital Signs Temp 98.7 F 09/10/22 12:00 Pulse 84 09/10/22 12:30 Resp 16 09/10/22 08:00 BP 130/57 09/10/22 12:30 Pulse Ox 92 09/10/22 12:30 O2 Del Method Nasal Cannula 09/10/22 12:30 O2 Flow Rate 4 09/10/22 12:30 FiO2 40 09/10/22 01:00 Discharge Plan Discharge Patient Disposition: Home Health Service Condition: Stable Prescriptions: New hydrocodone-acetaminophen 5-325 mg tablet 1 tab PO Q6H PRN (Reason: pain) Qty: 14 0RF Continued multivitamin Tablet 1 tab PO DAILY atorvastatin 80 mg tablet 40 mg PO DAILY cholecalciferol (vitamin D3) 50 mcg (2,000 unit) capsule 50 mcg PO DAILY docusate sodium 100 mg capsule 100 mg PO BID PRN (Reason: Constipation) lisinopril 20 mg tablet 10 mg PO DAILY nitroglycerin 0.4 mg tablet, sublingual 0.4 mg sublingual Q5M PRN (Reason: Chest Pain) Rx Instructions: do not exceed 3 doses per episode polyethylene glycol 3350 17 gram/dose powder 17 g PO DAILY PRN (Reason: Constipation) pregabalin 150 mg capsule 150 mg PO BID aspirin [Adult Low Dose Aspirin] 81 mg tablet,delayed release (DR/EC) 81 mg PO DAILY (DME) Allan Aerosol [place]gett Enhancer Spacer See Rx Instructions .Route Qty: 1 2RF Rx Instructions: As directed ipratropium bromide 0.02 % solution 2.5 ml inhalation Q6H PRN (Reason: Shortness Of Breath Or Wheezing) ipratropium-albuterol 0.5 mg-3 mg(2.5 mg base)/3 mL solution for nebulization 3 ml inhalation Q4H PRN (Reason: wheezing) Qty: 90 3RF albuterol sulfate [Ventolin HFA] 90 mcg/actuation HFA aerosol inhaler 1 inh inhalation QID PRN (Reason: shortness of breath or wheezing) Qty: 8.5 3RF Spiriva with HandiHaler 18 mcg capsule, w/inhalation device 1 cap inhalation DAILY Qty: 30 3RF Rx Instructions: puncture 1 cap using device; one dose = 2 inhalations budesonide-formoterol [Symbicort] 160-4.5 mcg/actuation HFA aerosol inhaler 2 puff inhalation BID Qty: 10.2 3RF guaifenesin [Mucinex] 600 mg tablet extended release 12hr 600 mg PO Q12H PRN (Reason: congestion) Qty: 60 3RF (DME) nebulizer accessories Kit See Rx Instructions .Route Qty: 1 0RF Rx Instructions: all nebulizer supplies needed sodium chloride 3 % solution for nebulization 4 ml inhalation BID PRN (Reason: congestion) Qty: 240 3RF albuterol sulfate 2.5 mg /3 mL (0.083 %) Solution For Nebulization 2.5 mg INHALATION Q4H PRN (Reason: Shortness Of Breath Or Wheezing) ascorbic acid (vitamin C) [Vitamin C] 500 mg Tablet 1,000 mg PO DAILY tamsulosin 0.4 mg Capsule 0.4 mg PO DAILY zinc gluconate 50 mg Tablet 50 mg PO DAILY fluticasone propionate 50 mcg/actuation [place],Suspension 1 spray INTRANASAL DAILY Rx Instructions: administer into each nostril ferrous gluconate 324 mg (38 mg iron) Tablet 324 mg PO DAILY lidocaine 5 % Ointment 1 applic TOPICAL DAILY PRN (Reason: Pain) PreserVision AREDS-2 250-90-40-1 mg Capsule 1 tab PO BID naloxone 4 mg/actuation [place],Non-Aerosol 4 mg INTRANASAL Q3M PRN (Reason: Opioid Overdose) Rx Instructions: spray 1 dose into ONE nostril; alternate nostrils w each dose until help arrives amiodarone [Pacerone] 200 mg Tablet 400 mg PO BID Qty: 90 3RF Rx Instructions: 400 mg twice a day for 3 days and then 200 mg twice a day for 3 days then 200 mg daily diltiazem HCl [Cardizem LA] 240 mg tablet extended release 24 hr 240 mg PO DAILY Qty: 60 2RF omeprazole 20 mg capsule,delayed release(DR/EC) 40 mg PO BIDWMEAL Qty: 60 3RF hydrocodone-acetaminophen 5-325 mg Tablet 1 tab PO Q4H PRN (Reason: Pain) Discontinued propranolol 80 mg Tablet 40 mg PO TID amoxicillin-pot clavulanate 875-125 mg Tablet 1 tab PO BID Qty: 10 0RF Discharge Orders: Discharge Order (Routine); Ordered 09/10/22 Ordered By: Yoel Cox Referrals: [facility] [Other] (expect Wednesday 10:40 am till 14:40 pm ) [facility] [Outside] ([facility]) Lovely Ivey MD [Primary Care Provider] - 1-3 days (information has been faxed ,will call you appointment) Discharge Diet: Advance as tolerated Discharge Activity: Resume usual activity Patient Instructions: Hydrocodone/Acetaminophen (By mouth) (Vicodin, [place], Lortab), End Stage Kidney Disease (DC), Shortness of Breath (DC), CHF Stoplight, COPD Stoplight, Opioid Safety Discharge Attestations Time Spent in Discharge Care*: less than 30 min Quality Metrics Clinical Quality Measures [ No reported AMI, CVA or VTE this stay] Coding Level of Care Code Acute Code for Chg Fwd Diagnoses End-stage renal disease (ESRD) N18.6
--- NOTE | 2022-09-10 15:43 | PC.NURSE ---
Discharge education provided to patient by charge nurse. Education included follow up care, home medications, dialysis follow up care and ERD education, as well as cardiac spotlight. Patient provided with written education as well. Patient and family at bedside had no questions. All belongings with patient at discharge.
== END 2022-09-10 15:30 | disposition home health service (06) | DRG 640 ==
LOC: ER 00:33 → CSU 01:15 → ICU 06:12
PROVIDERS: Hospitalist; Admitting Provider Internal Medicine; Emergency Provider Emergency Medicine; PCP Family Medicine; Visit Provider Internal Medicine
DX: E87.79 Other fluid overload (principal); I50.33 Acute on chronic diastolic (congestive) heart failure; J96.21 Acute and chronic respiratory failure with hypoxia; N18.6 End stage renal disease; J96.22 Acute and chronic respiratory failure with hypercapnia; I13.2 Hypertensive heart and chronic kidney disease with heart failure and with stage 5 chronic kidney disease, or end stage renal disease; Z68.42 Body mass index [BMI] 45.0-49.9, adult; E11.22 Type 2 diabetes mellitus with diabetic chronic kidney disease; Z91.158 Patient's noncompliance with renal dialysis for other reason; I25.10 Atherosclerotic heart disease of native coronary artery without angina pectoris; D63.1 Anemia in chronic kidney disease; G47.33 Obstructive sleep apnea (adult) (pediatric); I48.91 Unspecified atrial fibrillation; E66.01 Morbid (severe) obesity due to excess calories; E78.5 Hyperlipidemia, unspecified; E87.5 Hyperkalemia; J44.9 Chronic obstructive pulmonary disease, unspecified; H54.8 Legal blindness, as defined in USA; R19.5 Other fecal abnormalities; R19.7 Diarrhea, unspecified; D72.829 Elevated white blood cell count, unspecified; M89.8X9 Other specified disorders of bone, unspecified site; I25.2 Old myocardial infarction; Z99.89 Dependence on other enabling machines and devices; Z79.891 Long term (current) use of opiate analgesic; Z87.891 Personal history of nicotine dependence; Z87.19 Personal history of other diseases of the digestive system; Z95.5 Presence of coronary angioplasty implant and graft; Z99.2 Dependence on renal dialysis
CPT/HCPCS: 12345; 36415; 36416; 36600; 51702; 71045; 80048; 80051; 80053; 82330; 82728; 82805; 82962; 83540; 83550; 83605; 83735; 83880; 84100; 84145; 85025; 85610; 86705; 86706; 86803; 87070; 87077; 87186; 87205; 87340; 87426; 87493; 87506; 87804; 90935; 93005; 94640; 94660; 96374; 96376; 97116; 97162; 99291; J2920; J2930; J7626; Q4081

== ENCOUNTER → 2022-09-16 10:47 | Outpatient (BNVA) | payer OTHER, SELFPAY | PROVIDERS: PCP Family Medicine; Visit Provider Internal Medicine Pulmonary Disease | DX: J18.9 Pneumonia, unspecified organism (principal); I51.7 Cardiomegaly; I25.10 Atherosclerotic heart disease of native coronary artery without angina pectoris | CPT/HCPCS: 71046 ==

== ENCOUNTER 2022-10-19 10:03 | Outpatient (CLI) | payer OTHER, SELFPAY ==
[2022-10-19 10:43] LABS: Albumin Level 3.8 g/dL (3.5-5.2); Anion Gap 18.3 (5-19); Blood Urea Nitrogen 36 mg/dL (8-23); Calcium 7.9 mg/dL (8.5-10.5); Carbon Dioxide 25 mmol/L (22-29); Chloride 100 mmol/L (98-107); Glomerular Filtration Rate 20.1 mL/min (90-130); Glucose 129 mg/dL (65-115); Phosphorus 5.6 mg/dL (2.5-4.5); Potassium 4.3 mmol/L (3.5-5.1); Sodium 139 mmol/L (136-145)
== END 2022-10-19 10:04 | disposition home or self-care (01) ==
PROVIDERS: PCP Family Medicine; Visit Provider Internal Medicine Nephrology
DX: N17.9 Acute kidney failure, unspecified (principal)
CPT/HCPCS: 80069

== ENCOUNTER → 2023-01-28 14:30 | Outpatient (BNVA) | payer OTHER, SELFPAY | PROVIDERS: PCP Family Medicine; Visit Provider Dermatology | DX: D48.5 Neoplasm of uncertain behavior of skin (principal); L82.1 Other seborrheic keratosis; L82.0 Inflamed seborrheic keratosis; L72.0 Epidermal cyst; D22.39 Melanocytic nevi of other parts of face; B07.8 Other viral warts; L57.8 Other skin changes due to chronic exposure to nonionizing radiation | CPT/HCPCS: 11102; 17110; 99203 ==

== ENCOUNTER 2023-03-16 15:02 | Outpatient (CLI) | payer OTHER, SELFPAY ==
--- NOTE | 2023-03-16 | MR_ITS ---
WS: [id number] MRI BRAIN WITHOUT CONTRAST HISTORY: WORSENING TREMORS, ABNORMAL GAIT COMPARISON: None available. TECHNIQUE: Diffusion imaging, multiplanar T1, T2 and FLAIR imaging obtained. Very limited quality evaluation due to patient's body habitus. There is also significant motion artif act. No evidence for acute infarct. No hemorrhage. Gradient sequence is limited but no obvious hemosiderin deposition. There is only mild cerebral and cerebellar atrophy. Mild small vessel ischemic disease. No mass effect. No large territory infarct. Ventricles and extra-axial spaces are normal. No inferior displacement of cerebellar tonsils. The sella turcica and pituitary gland are unremarkabl e. Possible LEFT parotid mass measuring 1.9 cm. There may be an additional smaller mass along the inf erior portion of the parotid gland. Dural venous sinuses and mechoopda of Cui demonstrate no abnormality on this unenhanced studies. Paranasal sinuses: Mucoperiosteal thickening in the paranasal sinuses. Near complete opacification of the LEFT maxillary sinus. Moderate opacification RIGHT maxillary sinus. Mastoid air cells: Small bilateral mastoid effusions. Calvarium and scalp: Intact. IMPRESSION: 1. This study is significantly compromised by patient's body habitus and motion. 2. No acute infarct. 3. Mild cerebral and cerebellar atrophy with small vessel ischemic disease. 4. LEFT superficial parotid mass suspected at 1.9 cm. There may be an additional smaller mass in the inferior pole. These may be benign lymph nodes. Recommend follow-up neck CT with IV contrast. 5. Maxillary sinus disease.
== END 2023-03-16 15:03 | disposition home or self-care (01) ==
LOC: RAD 15:03
PROVIDERS: PCP Family Medicine; Visit Provider Family Medicine
DX: R25.1 Tremor, unspecified (principal); R26.9 Unspecified abnormalities of gait and mobility; I67.89 Other cerebrovascular disease; K11.9 Disease of salivary gland, unspecified; J32.0 Chronic maxillary sinusitis
CPT/HCPCS: 70551

== ENCOUNTER → 2023-04-15 12:28 | Outpatient (BNVA) | payer OTHER, SELFPAY | PROVIDERS: PCP Family Medicine; Visit Provider Internal Medicine Cardiovascular Disease | DX: I13.2 Hypertensive heart and chronic kidney disease with heart failure and with stage 5 chronic kidney disease, or end stage renal disease (principal); E11.22 Type 2 diabetes mellitus with diabetic chronic kidney disease; I50.9 Heart failure, unspecified; Z79.84 Long term (current) use of oral hypoglycemic drugs; N18.6 End stage renal disease; J44.1 Chronic obstructive pulmonary disease with (acute) exacerbation; I48.91 Unspecified atrial fibrillation; I25.10 Atherosclerotic heart disease of native coronary artery without angina pectoris; E87.5 Hyperkalemia; E78.5 Hyperlipidemia, unspecified; H54.8 Legal blindness, as defined in USA; G47.33 Obstructive sleep apnea (adult) (pediatric); I25.2 Old myocardial infarction; Z87.891 Personal history of nicotine dependence | CPT/HCPCS: 99214 ==

== ENCOUNTER → 2023-05-11 07:47 | Outpatient (BNVA) | payer OTHER, SELFPAY | PROVIDERS: PCP Family Medicine; Referring Provider Surgery; Visit Provider Surgery | DX: Z12.11 Encounter for screening for malignant neoplasm of colon (principal); G20.C Parkinsonism, unspecified; G31.84 Mild cognitive impairment of uncertain or unknown etiology | CPT/HCPCS: 99205; 99214 ==

== ENCOUNTER 2023-05-17 15:44 | Inpatient (IN) | payer OTHER, SELFPAY ==
[2023-05-17] VITALS (34 sets, daily range): BP systolic 112–230; BP diastolic 73–195; PULSE 84–188; RESP 14–37; TEMP 37.1–37.9; O2SAT 81–97; BMI 50.2; BMI 52.2
--- NOTE | 2023-05-17 15:48 | ECG_ITS ---
[facility] Test Date: 2023-05-17 Pat Name: Artie Quiles Department: Room: Gender: Male Assistant Analyst: : 1955 Requested By: Magdy Kay Order Number: [id number] José Antonio MD: Gadiel Kinsey M.D. Measurements Intervals [place] Rate: 114 P: 0 SD: 0 QRS: 63 QRSD: 100 T: 59 QT: 308 QTc: 426 Interpretive Statements ATRIAL FIBRILLATION WITH RAPID VENTRICULAR RESPONSE WITH ABERRANT CONDUCTION OR VENTRICULAR PREMATURE COMPLEXES INDETERMINATE AXIS LOW QRS VOLTAGE IN EXTREMITY LEADS [QRS DEFLECTION < 0.5 mV IN LIMB LEADS] PATTERN CONSISTENT WITH PULMONARY DISEASE Compared to ECG 09/08/2022 00:10:47 Ventricular premature complex(es) now present Aberrant conduction of supraventricular beat(s) now present Indeterminate axis now present Sinus rhythm no longer present First degree AV block no longer present T-wave abnormality no longer present Electronically Signed On 05-17-2023 17:43:55 LEARNING COACH by Gadiel Kinsey M.D. [email or web address]
--- NOTE | 2023-05-17 15:48 | ED_ITS ---
HPI - General Adult 2 General: Chief complaint: ER Hold Stated complaint: weakness Time Seen by Provider: 05/17/23 15:47 Source: patient Mode of arrival: EMS History of Present Illness: 68-year-old male presents emergency room from dialysis clinic. He is complaining of tremor he has been having wheezing difficulty breathing for the last couple of weeks intermittently he had a full run of hemodialysis today in the pulled 2 L off of the patient he has had a slight increased productive cough. He does not take any of his medications on dialysis days so he has not had any of his atrial fibrillation medications. He is on amiodarone and diltiazem. He has a known history of atrial fibrillation. Onset (ago): day(s) Relieving factors: none Exacerbating factors: none Associated symptoms: Reports cough, dyspnea, palpitations, short of breath and weakness; Deny chest pain, confusion, diaphoresis, decreased appetite, fevers/chills, headache(s), malaise, nausea, rash, seizures, syncope or vomiting Treatments prior to arrival: none Review of Systems 2 Const: Denies: fever(s), chills, malaise or diaphoresis Card: Reports: palpitations, irregular heart rhythm and edema; Denies: chest pain or syncope Resp: Reports: dyspnea and productive cough GI: Denies: abdominal pain, nausea or vomiting : Denies: dysuria, urinary frequency or urinary urgency Musc: Denies: neck pain or back pain Skin/Breast: Denies: rash Neuro: Denies: headache(s) or confusion PFSH ED 2 PFSH: Medical History Volume overload Acute exacerbation of chronic obstructive airways disease Acute respiratory failure with hypoxemia End-stage renal disease (ESRD) ESRD (end stage renal disease) Septic shock Acute encephalopathy GI bleed Acute respiratory failure with hypoxia Hyperkalemia NSTEMI (non-ST elevated myocardial infarction) Rib fractures Kidney lesion Acute anemia Abnormal CT scan, kidney Legally blind NATHALY (obstructive sleep apnea) Nightly CPAP Hyperkalemia Sepsis EDWIN (acute kidney injury) Pneumonia Chest pain Atrial fibrillation CHF (congestive heart failure) COPD (chronic obstructive pulmonary disease) 2L Smoker Hyperlipidemia Hypertension History of type 2 diabetes mellitus Coronary artery disease UTI (urinary tract infection) Pyelonephritis of left kidney Surgical History History of heart artery stent Family History Mother Skin cancer (melanoma) Heart attack Social History Smoking and tobacco/nicotine status: former use of tobacco/nicotine Quit status (tobacco/nicotine): has quit using Year quit tobacco: August 2020 [id number] Second hand smoke exposure: Yes Alcohol intake: never Substance/Drug Use: never Caregiver/support person: Yes Lives independently: Yes Household members: significant other Marital status: service: Yes Current occupational status: retired and disabled Pets and animals: Yes Do you think of yourself as: Straight/Heterosexual Current gender identity: Male Physical Exam 2 Const: GENERAL APPEARANCE: cooperative and comfortable O RIENTATION/CONSCIOUSNESS: Yes awake, Yes oriented to person, Yes oriented to place and Yes oriented to time HENMT: COMMON NORMALS: normocephalic, atraumatic and hearing grossly normal bilaterally HEAD & SCALP: normocephalic and atraumatic Resp: COMMON NORMALS: normal respiratory effort, No retractions and No use of accessory muscles AUSCULTATION: rhonchi, wheezes and diminished lung sounds Cardio: COMMON NORMALS: No murmurs present (Cardio) RATE: tachycardic R HYTHM: abnormal rhythm irregularly irregular GI: COMMON NORMALS: Soft to palpation and No hepatosplenomegaly present A USCULTATION: Yes normoactive bowel sounds PALPATION: Yes Soft to palpation, No Tenderness to palpation present (GI), No Guarding due to palpation present (GI) and Yes No hepatosplenomegaly present Extremity: COMMON NORMALS: normal to inspection, capillary refill normal and no calf tenderness GENERAL: Yes edema (Lower extremities bilaterally) Neuro: SENSORIUM/ORIENTATION: Yes oriented to person, Yes oriented to place and Yes oriented to time Skin: COMMON NORMALS: no rashes or lesions noted GENERAL SKIN EXAM: no rashes or lesions noted Course 2 Vital Signs: Vital signs: Vital Signs Temperature 98.7 F 05/17/23 15:45 Pulse Rate 116 H 05/17/23 15:45 Respiratory Rate 20 H 05/17/23 15:45 Blood Pressure 177/95 05/17/23 15:45 Pulse Oximetry 93 05/17/23 15:45 Oxygen Delivery Me thod Nasal Cannula 05/17/23 15:45 Oxygen Flow Rate 4 05/17/23 15:45 MDM - General Adult Medical Decision Making Bilateral basilar pneumonia. Patient did not take any of his medications today because of his size is little bit difficult time monitoring his rhythm EKG shows he is having slight increased rate with his A-fib. Will give him his amiodarone 400 mg now he states he normally does not take any of his medications on his dialysis days. Will also give him his diltiazem 240 mg daily cultures done admit to Dr. Landon have discussed with him orders written Medical Records I reviewed the patient's medical records. Lab Data I reviewed the patient's lab results. 05/17/23 15:35 05/17/23 15:35 Radiology Impressions Chest X-Ray 05/17/23 15:58 IMPRESSION: Cardiomegaly with bibasilar consolidations. Laboratory Results WBC 21.15 10^3/uL (3.29-11.43) H 05/17/23 15:35 RBC 4.42 10^6/uL (3.85-5.65) 05/17/23 15:35 Hgb 13.50 g/dL (11.27-16.99) 05/17/23 15:35 Hct 42.1 % (37-53) 05/17/23 15:35 MCV 95.2 fl (82-101) 05/17/23 15:35 MCH 30.5 pg (27-33) 05/17/23 15:35 MCHC 32.1 g/dL (30-55) 05/17/23 15:35 RDW 15.2 % (12.1-15.1) H 05/17/23 15:35 Plt Count 331 10^3/cmm (157-399) 05/17/23 15:35 MPV 12.4 fL (7.4-10.4) H 05/17/23 15:35 Neut % (Auto) 77.0 % 05/17/23 15:35 Lymph % (Auto) 12.6 % 05/17/23 15:35 [place] % (Auto) 7.9 % 05/17/23 15:35 Eos % (Auto) 1.7 % 05/17/23 15:35 Baso % (Auto) 0.2 % 05/17/23 15:35 Neut # (Auto) 16.28 10^3/uL (1.8-7.7) H 05/17/23 15:35 Lymph # (Auto) 2.7 10^3/uL (0.8-4.8) 05/17/23 15:35 [place] # (Auto) 1.7 10^3/uL (0.2-0.9) H 05/17/23 15:35 Eos # (Auto) 0.4 10^3/uL (0.0-0.8) 05/17/23 15:35 Baso # (Auto) 0.1 10^3/uL (0.0-0.1) 05/17/23 15:35 Nucleated RBC % (auto) 0 % 05/17/23 15:35 Nucleated RBCs # 0.0 /100WBC 05/17/23 15:35 Specimen Type Arterial 05/17/23 16:15 Sample Site Brachial, right 05/17/23 16:15 ABG pH 7.42 (7.35-7.45) 05/17/23 16:15 ABG pCO2 50.4 mmHg (35-45) H 05/17/23 16:15 ABG pO2 56.2 mmHg (80.0-100.0) L 05/17/23 16:15 ABG PO2/FiO2 Ratio 0 05/17/23 16:15 ABG HCO3 32.3 mmol/L (22-26) H 05/17/23 16:15 ABG O2 Saturation 89.7 05/17/23 16:15 ABG Base Excess 6.5 mmol/L (-2.0-2.0) H 05/17/23 16:15 [place] Test N/a 05/17/23 16:15 A-a O2 Gradient 10.8 mmHg (5-10) H 05/17/23 16:15 Hematocrit 39.4 % (42-52) L 05/17/23 16:15 Hgb O2 Saturation 87.9 % (95-100) L 05/17/23 16:15 Carboxyhemoglobin 1.5 %THgb (0.4-20.1) 05/17/23 16:15 Methemoglobin 0.6 % (0.4-1.5) 05/17/23 16:15 Total Hemoglobin 12.9 g/dL (14-18) L 05/17/23 16:15 Sodium 140.0 mmol/L (131-143) 05/17/23 16:15 Potassium 3.9 mmol/L (3.5-5.0) 05/17/23 16:15 Glucose 124.0 mg/dL (70-115) H 05/17/23 16:15 Ionized Calcium 1.0 mmol/L (1.1-1.4) L 05/17/23 16:15 O2 Delivery Device Nc 05/17/23 16:15 O2 Liters/Min 2.0 % 05/17/23 16:15 FiO2 28.0 % 05/17/23 16:15 Protocol Manager ID Amh 05/17/23 16:15 Sodium Cancelled 05/17/23 15:35 Potassium Cancelled 05/17/23 15:35 Chloride Cancelled 05/17/23 15:35 Carbon Dioxide Cancelled 05/17/23 15:35 Anion Gap Cancelled 05/17/23 15:35 BUN Cancelled 05/17/23 15:35 Creatinine Cancelled 05/17/23 15:35 GFR Calculation Cancelled 05/17/23 15:35 Glucose Cancelled 05/17/23 15:35 Calculated Osmolality Cancelled 05/17/23 15:35 Calcium Cancelled 05/17/23 15:35 Total Bilirubin Cancelled 05/17/23 15:35 AST Cancelled 05/17/23 15:35 ALT Cancelled 05/17/23 15:35 Alkaline Phosphatase Cancelled 05/17/23 15:35 Troponin T Baseline Cancelled 05/17/23 15:35 NT-Pro-B Natriuret Pep Cancelled 05/17/23 15:35 Total Protein Cancelled 05/17/23 15:35 Albumin Cancelled 05/17/23 15:35 Globulin Cancelled 05/17/23 15:35 All radiology interpretation(s) finalized by discharge Discharge Plan Discharge Patient Disposition: Admitted As Inpatient Admit Provider: Moisés Landon Clinical Impression: Atrial fibrillation, Community acquired pneumonia, NATHALY (obstructive sleep apnea), Mild cognitive impairment with memory loss, Coronary artery disease COPD (chronic obstructive pulmonary disease) Qualifiers: COPD type: COPD with acute exacerbation Qualified Code(s): J44.1 - Chronic obstructive pulmonary disease with (acute) exacerbation Condition: Stable Coding Level of Care Code ED Gang Sawyer for Lauren Gonzalez
--- NOTE | 2023-05-17 15:58 | XRR_ITS ---
PROCEDURE INFORMATION: Exam: XR Chest Exam date and time: 05/17/2023 4:09 PM Age: 68 years old Clinical indication: Cough and dyspnea; Additional info: Dyspnea/cough TECHNIQUE: Imaging protocol: Radiologic exam of the chest. Views: 1 view. COMPARISON: CR XR chest 2V* [id number] 09/16/2022 11:45 AM FINDINGS: Tubes, catheters and devices: Right central line terminates at the cavoatrial junction. Lungs: Bibasilar consolidations. Pleural spaces: No apparent pleural effusion. No pneumothorax. Heart/Mediastinum: Cardiomegaly. Bones/joints: Unremarkable. XR/XR chest 1V portable [id number] IMPRESSION: Cardiomegaly with bibasilar consolidations.
--- NOTE | 2023-05-17 16:03 | PC.PHAR ---
Addendum entered by Mandi Ramos 05/18/23 09:14: [facility] med [facility]-called pts and she verified pts medications with pts medication bottles-pts states the pt is not taking apixaban 5mg bid or metoprolol tartrate 50mg bid-pts states the pts amiodarone 200mg,bumetanide 2mg bid,iron 324mg daily,lisinopril 10mg daily was dced-pts states the pt is only taking the medications entered Original Note: PT HERE FROM DIALYSIS - [facility] IS [facility] FOR MED LIST AT 4 PM ON 05/17/23- MED LIST FROM [facility] IS NOT COMPLETE
[2023-05-17 16:15] LABS: Basophils # 0.1 10^3/uL (0.0-0.1); Basophils % 0.2 %; Eosinophils # 0.4 10^3/uL (0.0-0.8); Eosinophils % 1.7 %; Hematocrit 42.1 % (37-53); Lymphocytes # 2.7 10^3/uL (0.8-4.8); Lymphocytes % 12.6 %; Mean Corpuscular HGB Conc 32.1 g/dL (30-55); Mean Corpuscular Hemoglobin 30.5 pg (27-33); Mean Corpuscular Volume 95.2 fl (82-101); Mean Platelet Volume 12.4 fL (7.4-10.4); Monocytes # 1.7 10^3/uL (0.2-0.9); Monocytes % 7.9 %; Neutrophils # 16.28 10^3/uL (1.8-7.7); Nucleated Red Blood Cells % 0 %; Platelet Count 331 10^3/cmm (157-399); Red Blood Count 4.42 10^6/uL (3.85-5.65); Red Cell Distribution Width 15.2 % (12.1-15.1); White Blood Count 21.15 10^3/uL (3.29-11.43)
[2023-05-17 16:26] LABS: ABG PCO2 50.4 mmHg (35-45); ABG PH Result 7.42 (7.35-7.45); Alveolar-Arterial Oxygen Gradi 10.8 mmHg (5-10); Arterial Blood Gas Hematocrit 39.4 % (42-52); Base Excess ABG 6.5 mmol/L (-2.0-2.0); Blood Gas Operator Identificat AMH; Blood Gas Sample Site Brachial, right; Blood Gas Sample Type Arterial; Carboxyhemoglobin 1.5 %THgb (0.4-20.1); HCO3 ABG 32.3 mmol/L (22-26); HGB O2 Sat 87.9 % (95-100); Methemoglobin 0.6 % (0.4-1.5); Oxygen Device NC; Oxygen Saturation ABG 89.7; PO2 ABG 56.2 mmHg (80.0-100.0); PO2 FiO2 Ratio Arterial Blood 0; Potassium Level - ABG 3.9 mmol/L (3.5-5.0); Total Hemoglobin 12.9 g/dL (14-18)
--- NOTE | 2023-05-17 17:34 | ECG_ITS ---
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 Measurements Intervals [place] Rate: 112 P: 0 [place]: 0 QRS: 65 QRSD: 90 T: 34 QT: 270 QTc: 369 Interpretive Statements ATRIAL FIBRILLATION WITH RAPID VENTRICULAR RESPONSE LOW QRS VOLTAGE IN EXTREMITY LEADS [QRS DEFLECTION < 0.5 mV IN LIMB LEADS] PATTERN CONSISTENT WITH PULMONARY DISEASE Compared to ECG 05/17/2023 15:56:47 Ventricular premature complex(es) no longer present Aberrant conduction of supraventricular beat(s) no longer present Indeterminate axis no longer present Electronically Signed On 05-17-2023 17:51:07 PESTICIDE APPLICATOR by Gadiel Kinsey M.D. [id number]
[2023-05-17] MEDS: levofloxacin-dextrose 5 % 750 MG/150 ML PREMIX 100 MG IV (18:15)
[2023-05-17] MEDS: amiodarone 200 mg Tablet 400 MG PO (18:15)
[2023-05-17] MEDS: dilTIAZem ER (24HR) 240 mg Capsule PO (18:15)
[2023-05-17 18:22] LABS: Lactic Sepsis W/Reflex 1.6 mmol/L (0.5-2.2)
--- NOTE | 2023-05-17 18:23 | P.HP_ITS ---
Providers/Chief Complaint 2 Admitting Physician: Moisés Landon MD Primary Care Provider: Lovely Ivey MD Chief Complaint: weakness History of Present Illness Artie Quiles is a 68 year old male with a past medical history of morbid obesity, atrial fibrillation not on anticoagulation due to history of GI bleed, end-stage renal disease on dialysis, obstructive sleep apnea on CPAP, history of CAD hypertension, hyperlipidemia, COPD, who presents to [facility] due to increased weakness, frequent falls, shortness of breath. Patient tells me chronically uses oxygen at home, typically 2 to 3 L. Here he is on 4 L. He does report shortness of breath over the last week, he is compliant with dialysis, he roughly had 2 L taken off today. However he does report generalized weakness, he has had frequent falls he cannot figure out why he is falling, no history of strokes, denies any dizziness, no vertigo, no knee pain, no hip pain, Review of Systems 2 Const: Reports: malaise; Denies: fever(s) Card: Denies: chest pain or edema Resp: Reports: dyspnea GI: Denies: abdominal pain : Denies: flank pain Medications/Allergies Home Medications Medication Instructions Recorded Confirmed Last Taken Type aspirin 81 mg tablet,delayed 81 mg PO DAILY 11/27/20 05/11/23 Unknown History release (Adult Low Dose Aspirin) atorvastatin 80 mg tablet 40 mg PO DAILY 11/27/20 05/11/23 Unknown History cholecalciferol (vitamin D3) 50 50 mcg PO DAILY 11/27/20 05/11/23 Unknown History mcg (2,000 unit) capsule docusate sodium 100 mg capsule 100 mg PO BID PRN Constipation 11/27/20 05/11/23 Unknown History lisinopril 20 mg tablet 10 mg PO DAILY 11/27/20 05/11/23 Unknown History nitroglycerin 0.4 mg sublingual 0.4 mg sublingual Q5M PRN Chest 11/27/20 05/11/23 Unknown History tablet Pain polyethylene glycol 3350 17 17 g PO DAILY PRN Constipation 11/27/20 05/11/23 Unknown History gram/dose oral powder pregabalin 150 mg capsule 150 mg PO BID 11/27/20 05/11/23 Unknown History inhalational spacing device (Allan #1 ea 05/20/21 05/11/23 Unknown Rx Aerosol Bledsoe Enhancer spacer) multivitamin 1 tab PO DAILY 08/11/21 05/11/23 Unknown History guaifenesin 600 mg tablet, 600 mg PO Q12H PRN congestion #60 05/26/22 05/11/23 Unknown Rx extended release 12 hr (Mucinex) tabs ipratropium bromide 0.02 % 2.5 ml inhalation Q6H PRN 06/17/22 05/11/23 Unknown History solution for inhalation Shortness Of Breath Or Wheezing nebulizer accessories #1 ea 06/18/22 05/11/23 Unknown Rx sodium chloride 3 % for 4 ml inhalation BID PRN congestion 06/18/22 05/11/23 Unknown Rx nebulization #240 mL albuterol sulfate 2.5 mg/3 mL 2.5 mg inhalation Q4H PRN 08/21/22 05/11/23 Unknown History (0.083 %) solution for nebulization Shortness Of Breath Or Wheezing ascorbic acid (vitamin C) 500 mg 1,000 mg PO DAILY 08/21/22 05/11/23 Unknown History tablet (Vitamin C) fluticasone propionate 50 1 spray intranasal DAILY 08/21/22 05/11/23 Unknown History mcg/actuation nasal spray,suspension lidocaine 5 % topical ointment 1 applic topical DAILY PRN Pain 08/21/22 05/11/23 Unknown History naloxone 4 mg/actuation nasal spray 4 mg intranasal Q3M PRN Opioid 08/21/22 05/11/23 Unknown History Overdose tamsulosin 0.4 mg capsule 0.4 mg PO DAILY 08/21/22 05/11/23 Unknown History vit C 250 mg-vit E 90 mg-zinc 40 1 tab PO BID 08/21/22 05/11/23 Unknown History mg-copper 1 cw-[id number]-krhphw capsule (PreserVision AREDS-2) zinc gluconate 50 mg tablet 50 mg PO DAILY 08/21/22 05/11/23 Unknown History amiodarone 200 mg tablet (Pacerone) 400 mg (2 x 200 mg) PO BID #90 tabs 08/27/22 05/11/23 Unknown Rx diltiazem HCl 240 mg 240 mg PO DAILY #60 tabs 08/27/22 05/11/23 Unknown Rx tablet,extended release 24 hr (Cardizem LA) omeprazole 20 mg capsule,delayed 40 mg (2 x 20 mg) PO BIDWMEAL #60 08/28/22 05/11/23 Unknown Rx release caps hydrocodone 5 mg-acetaminophen 325 1 tab PO Q4H PRN Pain 09/08/22 05/11/23 Unknown History mg tablet hydrocodone 5 mg-acetaminophen 325 1 tab PO Q6H PRN pain #14 tabs 09/08/22 05/11/23 Unknown Rx mg tablet acetaminophen 325 mg capsule 325 mg PO QID PRN 05/11/23 05/11/23 Unknown History (Tylenol) albuterol sulfate 90 mcg/actuation 1 inh inhalation QID PRN shortness 05/11/23 Unknown Rx aerosol inhaler (Ventolin HFA) of breath or wheezing #8.5 grams budesonide-formoterol HFA 160 2 puff inhalation BID #10.2 grams 05/11/23 Unknown Rx mcg-4.5 mcg/actuation aerosol inhaler (Symbicort) calcium acetate 667 mg tablet 667 mg PO TID 05/11/23 05/11/23 Unknown History carboxymethylcellulose sodium 0.5 1 drp ophthalmic (eye) BID 05/11/23 05/11/23 Unknown History % eye drops (Refresh Tears) ciprofloxacin 0.3 %-dexamethasone drp otic (ear) 05/11/23 05/11/23 Unknown History 0.1 % ear drops,suspension ipratropium 0.5 mg-albuterol 3 mg 3 ml inhalation Q4H PRN wheezing 05/11/23 Unknown Rx (2.5 mg base)/3 mL nebulization #90 mL soln loratadine 10 mg tablet (Allergy 10 mg PO DAILY 05/11/23 05/11/23 Unknown History Relief (loratadine)) lorazepam 0.5 mg tablet mg PO 05/11/23 05/11/23 Unknown History melatonin 3 mg capsule 3 mg PO DAILY 05/11/23 05/11/23 Unknown History primidone 50 mg tablet 50 mg PO BID 05/11/23 05/17/23 05/16/23 History ropinirole 1 mg tablet 1 mg PO DAILY 05/11/23 05/11/23 Unknown History tiotropium bromide 18 mcg capsule 1 cap inhalation DAILY #60 05/11/23 Unknown Rx with inhalation device (Spiriva inhalations with HandiHaler) Allergies Allergy/AdvReac Type Severity Reaction Status Date / Time Iodinated Contrast Media Allergy Severe anaphylaxis Verified 05/17/23 15:51 PFSH Acute 2 PFSH: Medical History Volume overload Acute exacerbation of chronic obstructive airways disease Acute respiratory failure with hypoxemia End-stage renal disease (ESRD) ESRD (end stage renal disease) Septic shock Acute encephalopathy GI bleed Acute respiratory failure with hypoxia Hyperkalemia NSTEMI (non-ST elevated myocardial infarction) Rib fractures Kidney lesion Acute anemia Abnormal CT scan, kidney Legally blind NATHALY (obstructive sleep apnea) Nightly CPAP Hyperkalemia Sepsis EDWIN (acute kidney injury) Pneumonia Chest pain Atrial fibrillation CHF (congestive heart failure) COPD (chronic obstructive pulmonary disease) 2L Smoker Hyperlipidemia Hypertension History of type 2 diabetes mellitus Coronary artery disease UTI (urinary tract infection) Pyelonephritis of left kidney Surgical History History of heart artery stent Family History Mother Skin cancer (melanoma) Heart attack Social History Smoking and tobacco/nicotine status: former use of tobacco/nicotine Quit status (tobacco/nicotine): has quit using Year quit tobacco: August 2020 [id number] Second hand smoke exposure: Yes Alcohol intake: never Substance/Drug Use: never Caregiver/support person: Yes Lives independently: Yes Household members: significant other Marital status: service: Yes Current occupational status: retired and disabled Pets and animals: Yes Do you think of yourself as: Straight/Heterosexual Current gender identity: Male Vitals/I&O/Wt Last Vital Signs Temp 100.2 F H 05/17/23 17:38 Pulse 114 H 05/17/23 17:45 Resp 22 H 05/17/23 17:50 BP 140/115 05/17/23 17:50 Pulse Ox 84 L 05/17/23 17:45 O2 Del Method Nasal Cannula 05/17/23 16:30 O2 Flow Rate 4 05/17/23 16:30 Weight last 48 hrs Weight 163.293 kg Physical Exam 2 Const: COMMON NORMALS: no acute distress and patient oriented x3 HENMT: COMMON NORMALS: normocephalic Eye: COMMON NORMALS: Equal, round and reactive pupils present and EOMs intact bilaterally Neck/C-Spine: COMMON NORMALS: full ROM and no lymphadenopathy Lymph: LYMPHATIC: no lymphadenopathy noted Resp: COMMON NORMALS: normal respiratory effort, No retractions, No use of accessory muscles and clear to auscultation bilaterally AUSCULTATION: c rackles and wheezes Cardio: COMMON NORMALS: regular rate, regular rhythm, S1 normal heart sound present and S2 normal heart sound present RATE: regular rate RHYTHM: r egular rhythm HEART SOUNDS: S1 normal heart sound present and S2 normal heart sound present GI: COMMON NORMALS: Normal to inspection, nondistended, normoactive bowel sounds present, Soft to palpation and non-tender Extremity: COMMON NORMALS: no pedal edema Neuro: COMMON NORMALS: patient oriented x3, CN's II-XII intact bilaterally, moves all extremities and no focal motor deficits Psych: COMMON NORMALS: mental status grossly normal Data 05/17/23 15:35 05/17/23 17:45 Micro: Microbiology 05/17/23 17:47 Blood Culture - Preliminary Blood SPECIMEN COLLECTED 05/17/23 17:45 Blood Culture - Preliminary Blood SPECIMEN COLLECTED A&P Assessment and plan (1) Community acquired pneumonia: (2) COPD (chronic obstructive pulmonary disease): Qualifiers: COPD type: COPD with acute exacerbation Qualified Code(s): J44.1 - Chronic obstructive pulmonary disease with (acute) exacerbation (3) Hypertension: (4) Coronary artery disease: (5) Atrial fibrillation: (6) Hyperlipidemia: (7) ESRD (end stage renal disease): (8) Frequent falls: (9) Atrial fibrillation with RVR: Plan Community-acquired pneumonia, ? Sputum cultures, ? Blood cultures, ? Respiratory viral panel, ? Continue Rocephin and azithromycin End-stage renal disease on dialysis received dialysis today Atrial fibrillation, currently in A-fib heart rate in the 120s to 130s despite getting home p.o. medications, start amiodarone drip COPD, not in exacerbation, will hold off on steroids History of CAD no chest pain complaints, serial EKGs, start tomorrow as needed, telemetry monitoring NATHALY continue CPAP Frequent falls CT of the head, PT OT Morbid obesity, Parkinsonian tremor, Full code ? Heparin for DVT prophylaxis Attestations 2 Medical Necessity Statement*: Patient requires hospitalization for community-acquired pneumonia, A-fib with RVR, inpatient, greater than 2 midnights Coding Level of Care Code Acute Code for g Fwd Diagnoses Community acquired pneumonia J18.9 COPD (chronic obstructive pulmonary disease) J44.1 COPD type: COPD with acute exacerbation Hypertension I10 Coronary artery disease I25.10 Atrial fibrillation, unspecified type I48.91 Hyperlipidemia E78.5 ESRD (end stage renal disease) N18.6 Frequent falls R29.6 Atrial fibrillation with RVR I48.91
[2023-05-17 18:30] LABS: Troponin(5th) Baseline 140 ng/L (0-15)
[2023-05-17 18:33] LABS: NT Pro B Type Natriuretic Pept 2858 pg/mL (0-125)
[2023-05-17 18:44] LABS: Aspartate Amino Transferase 16 U/L (0-40); Carbon Dioxide 29 mmol/L (22-29); Sodium 138 mmol/L (136-145); Total Bilirubin 0.4 mg/dL (0.15-1.2)
[2023-05-17 18:54] LABS: Alanine Aminotransferase 17 U/L (0-41); Albumin Level 4.3 g/dL (3.5-5.2); Alkaline Phosphatase 151 U/L (40-130); Anion Gap 19.9 (5-19); Blood Urea Nitrogen 18 mg/dL (8-23); Calcium 8.1 mg/dL (8.5-10.5); Chloride 93 mmol/L (98-107); Globulin 4.3 g/dL (1.3-4.6); Glomerular Filtration Rate 10.1 mL/min (90-130); Glucose 121 mg/dL (65-115); Osmolality Calculated 289 mOsm/kg (285-295); Potassium 3.9 mmol/L (3.5-5.1); Total Protein 8.6 g/dL (6.6-8.7)
[2023-05-17 18:58] LABS: C Reactive Protein 62.8 mg/L (0.0-4.9)
[2023-05-17 21:00] LABS: Troponin 5 2HR Delta -7.4 ABS# (0-10)
[2023-05-17 21:01] LABS: Troponin 5 2HR 132.6 ng/L (0-15)
--- NOTE | 2023-05-17 21:44 | CTR_ITS ---
PROCEDURE INFORMATION: Exam: CT Head Without Contrast Exam date and time: 05/18/2023 12:15 AM Age: 68 years old Clinical indication: Injury or trauma; Fall; Blunt trauma (contusions or hematomas); Additional info: Falls TECHNIQUE: Imaging protocol: Computed tomography of the head without contrast. Radiation optimization: All CT scans at this facility use at least one of these dose optimization techniques: automated exposure control; mA and/or kV adjustment per patient size (includes targeted exams where dose is matched to clinical indication); or iterative reconstruction. REPORTING DATA: Count of CT and Cardiac NM exams in prior 12 months: This patient has received 2 known CTs and 0 known cardiac nuclear medicine studies in the 12 months prior to the current study. COMPARISON: MR head wo con* [id number] 03/16/2023 3:26 PM RADIATION DOSE METRICS: Total DLP (mGy-cm): 1356.38 FINDINGS: Brain: No acute intracranial hemorrhage or mass effect. There is decreased attenuation in the periventricular white matter, likely from microvascular disease. There are small old lacunar infarcts in the basal ganglia regions and periventricular white matter bilaterally. No definite acute infarct by CT. Cerebral ventricles: Ventricle size is normal for age. Paranasal sinuses: Essentially complete opacification of the left maxillary sinus with prominent right maxillary sinus opacity/mucosal thickening. Mild mucosal thickening in the ethmoid and sphenoid sinuses. Mastoid air cells: No significant acute finding. Parotid and submandibular glands: 21 x 11 x 15 mm nodule/mass in the left parotid gland. This appears essentially unchanged in size from the recent comparison MR exam. The appearance is not specific. This could represent an enlarged lymph node, other etiologies not excluded, including pleomorphic adenoma and Warthin's tumor. Eventual comparison with any available older prior exams may be helpful. As clinically directed, eventual evaluation with MRI of the neck and/or biopsy might be needed to exclude malignancy. Bones/joints: No definite acute skull fracture. Soft tissues: See Parotid and submandibular glands finding. Vasculature: Vascular calcifications in the internal carotid and vertebral basilar systems. CT/CT head wo con* [id number] IMPRESSION: 1. No acute intracranial hemorrhage or mass effect. 2. Paranasal sinus findings as discussed above. 3. Nonspecific left parotid gland nodule/mass, see above details/discussion. 4. Other findings discussed above.
[2023-05-17 22:35] LABS: Chol HDL Ratio 2.83 mg/dL (1.0-5.00); Cholesterol 102 mg/dL (0-200); HDL Cholesterol 36 mg/dL (60-100); LDL Cholesterol Calculated 43 mg/dL (50-129); LDL HDL Ratio 1.19 RATIO (0.00-3.22); Thyroid Stimulating Hormone 1.23 uIU/mL (0.27-4.20); Triglycerides 116 mg/dL (0-150)
--- NOTE | 2023-05-17 22:45 | ECG_ITS ---
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 Measurements Intervals [place] Rate: 88 P: 0 [place]: 0 QRS: 72 QRSD: 93 T: 70 QT: 380 QTc: 461 Interpretive Statements ATRIAL FLUTTER LOW QRS VOLTAGE [QRS DEFLECTION < 0.5/1.0 mV IN LIMB/CHEST LEADS] PATTERN CONSISTENT WITH PULMONARY DISEASE Compared to ECG 05/17/2023 17:34:19 Atrial fibrillation no longer present Electronically Signed On 05-18-2023 14:40:59 TRACK SUPERVISOR by Raghavendra Pereira M.D. [id number]
[2023-05-17] MEDS: ipratropium-albuterol 3 mL Neb INHALATION (22:47)
[2023-05-17] MEDS: budesonide 0.5 mg/2 mL Neb INHALATION (22:47)
[2023-05-17 22:56] LABS: Estmated Average Glucose 114; Hemoglobin A1C 5.6 % (4.0-6.0)
[2023-05-17] MEDS: cefTRIAXone 1,000 MG in sodium chloride 0.9% (plus) 50 ML 100 MG IV (23:13)
[2023-05-17] MEDS: heparin 5,000 unit/mL INJ 1 mL 5000 UNIT SUBCUT (23:13)
[2023-05-17] MEDS: calcium acetate 667 mg Capsule PO (23:13)
[2023-05-17] MEDS: pantoprazole 40 mg SDV IVP (23:13)
[2023-05-17] MEDS: azithromycin 500 MG in sodium chloride 0.9% 250 ML 250 MG IV (23:14)
[2023-05-18] VITALS (17 sets, daily range): BP systolic 120–159; BP diastolic 57–81; PULSE 65–98; RESP 15–22; TEMP 36.5–36.8; O2SAT 92–97
[2023-05-18 00:04] LABS: Troponin 5 6HR Delta -3.1 ng/L (0-12)
[2023-05-18 00:06] LABS: Troponin 5 6HR 136.9 ng/L (0-15)
[2023-05-18] MEDS: ipratropium-albuterol 3 mL Neb INHALATION ×4 (04:18→19:29)
[2023-05-18 04:44] LABS: Basophils % 0.3 %; Eosinophils # 0.3 10^3/uL (0.0-0.8); Eosinophils % 2.5 %; Hematocrit 37.9 % (37-53); Lymphocytes # 2.8 10^3/uL (0.8-4.8); Lymphocytes % 21.7 %; Mean Corpuscular HGB Conc 30.1 g/dL (30-55); Mean Corpuscular Hemoglobin 29.2 pg (27-33); Mean Corpuscular Volume 97.2 fl (82-101); Monocytes # 1.6 10^3/uL (0.2-0.9); Monocytes % 12.1 %; Neutrophils # 8.23 10^3/uL (1.8-7.7); Neutrophils % 63.1 %; Nucleated Red Blood Cells % 0 %; Platelet Count 297 10^3/cmm (157-399); White Blood Count 13.06 10^3/uL (3.29-11.43)
[2023-05-18 05:09] LABS: Alanine Aminotransferase 15 U/L (0-41); Albumin Level 3.6 g/dL (3.5-5.2); Alkaline Phosphatase 126 U/L (40-130); Anion Gap 18.1 (5-19); Aspartate Amino Transferase 16 U/L (0-40); Blood Urea Nitrogen 27 mg/dL (8-23); C Reactive Protein 83.7 mg/L (0.0-4.9); Calcium 7.6 mg/dL (8.5-10.5); Carbon Dioxide 30 mmol/L (22-29); Chloride 95 mmol/L (98-107); Globulin 3.5 g/dL (1.3-4.6); Glomerular Filtration Rate 8.7 mL/min (90-130); Glucose 82 mg/dL (65-115); Magnesium 2.1 mg/dL (1.7-2.3); Osmolality Calculated 292 mOsm/kg (285-295); Phosphorus 5.5 mg/dL (2.5-4.5); Potassium 4.1 mmol/L (3.5-5.1); Sodium 139 mmol/L (136-145); Total Bilirubin 0.3 mg/dL (0.15-1.2); Total Protein 7.1 g/dL (6.6-8.7)
[2023-05-18 05:18] LABS: NT Pro B Type Natriuretic Pept 3109 pg/mL (0-125); Procalcitonin 0.23 ng/mL (0-0.5)
[2023-05-18] MEDS: budesonide 0.5 mg/2 mL Neb INHALATION ×2 (07:56→19:29)
--- NOTE | 2023-05-18 08:36 | USCV_ITS ---
Artie Quiles Age: 68 Gender: M : 1955 Exam Date: 05/18/2023 09:40 Ordering Phys: Moisés Landon MD Technologist: [place] Exam Location: [facility] [place] Indication: SHORTNESS OF BREATH, TACKYCARDIA BP: 147 / 57 HR: 72 Rhythm: Sinus Technical Quality: Poor because of body habitus MEASUREMENTS (Male / Female) Normal Values 2D ECHO LVOT Diameter 2.0 cm LV Ejection Fraction MOD 2C 48.6 % LV Ejection Fraction 2C AL 49.9 % LA Diameter 4.4 cm LA Width 4.6 cm LA Height 5.3 cm RA Width 3.2 cm RA Height 6.8 cm Aorta at Sinotubular Diameter 2.1 cm M-MODE Aortic Annulus Diameter 2.5 cm LA Ao Ratio MM 1.8 MV E Point Septal Separation 0.8 cm DOPPLER AV Peak Velocity 199.0 cm/s LVOT Peak Velocity 90.0 cm/s AV Area Cont Eq vti 1.6 cm squared AV Area Cont Eq pk 1.4 cm squared MV Peak Velocity 120.0 cm/s MV Area PHT 4.0 cm squared Mitral E to A Ratio 2.1 MV E' Velocity 73.5 cm/s Mitral E to MV E' Ratio 11.9 Mitral E to LV E' Lateral Ratio 11.1 Mitral E to LV E' Septal Ratio 12.9 TV Peak E Velocity 58.0 cm/s Right Atrial Pressure 8.0 mmHg PV Peak Velocity 111.0 cm/s FINDINGS Left Ventricle Normal left ventricular cavity size. Mildly decreased left ventricular systolic function. Left ventricular ejection fraction is estimated at 50 %. Possible mild global hypokinesis. Right Ventricle Normal right ventricular size and systolic function. Right Atrium Normal right atrial size. Left Atrium Mildly increased left atrial size. Mitral Valve Mitral annular calcification. Mildly thickened mitral valve. Aortic Valve Aortic valve not well visualized. No aortic valve stenosis. Tricuspid Valve Tricuspid valve not well visualized. Pulmonic Valve Pulmonic valve not well visualized. Pericardium No thickening/calcification of the pericardium. Aorta Aorta not well visualized. IVC Inferior vena cava not visualized. CONCLUSIONS 1. Technically difficult study inspite of Optison use. 2. Normal left ventricular cavity size. Mildly decreased left ventricular systolic function. Left ventricular ejection fraction is estimated at 50 %. Possible mild global hypokinesis. 3. Direct comparison to previous study is not possible due to study quality. April Price MD (Electronically Signed) Final Date: 18 May 2023 12:01 S
--- NOTE | 2023-05-18 09:03 | PC.CHAP ---
Pastoral Care Encounter/Spiritual Assessment Type of Contact [] Declined chief mate visit [] Patient/Family/Request visit [] Outpatient visit [] Follow-up visit [] Physician referral [] Code/Alert [x] Routine visit [] Staff referral [] Actively dying [] Patient sleeping [] Family support [] [] Out of room [] Palliative care [] [] Receiving care in room [] Pre-surgical visit [] Trauma [] Long length of stay [] ICU visit [] Other: Relational/Emotional Strength [x] Patient feels connected with others/family/visitors/staff [] Distress [] Loneliness/isolation [] Abandonment Spirituality of Patient [x] Person of Kendra [] Attends Lutheran of their Kendra [x] Believes in Prayer [] Reads Bible or Yazidism materials [] There are Spiritual issues to be addressed Customer Supply Chain Analyst Interventions [x] Prayer [x] Active listening [] Non-anxious presence [x] Spiritual/emotional support [] Crisis/trauma care [] Spiritual counseling [] Bereavement support [] Provided bereavement packet [] Provided Bible/devotional materials [] Provided toy/stuffed animal, coloring book to patient or family member [] Provided Communion [] Anointing/Randolph [] Salvation [x] Completed spiritual assessment [] Other: Impact on Illness or Injury [] Angry [] Fearful [] Anxious [] Often cries [] Exhaustion [] Unable to work [] Unable to attend religious [] Unable to walk/stand [] Unable to read [] Unable to drive [] Unable to eat/drink [] Unable to sleep [] Unable to be with family [] Patient intubated [] Other: Summary Time spent with patient 5 min
[2023-05-18] MEDS: pantoprazole 40 mg SDV IVP ×2 (09:26→22:10)
[2023-05-18] MEDS: heparin 5,000 unit/mL INJ 1 mL 5000 UNIT SUBCUT ×2 (09:27→22:10)
[2023-05-18] MEDS: primidone 50 mg Tablet PO ×2 (09:27→19:05)
[2023-05-18] MEDS: ropinirole 1 mg Tablet PO (09:27)
[2023-05-18] MEDS: aspirin 81 mg EC Tablet PO (09:27)
[2023-05-18] MEDS: lisinopril 10 mg Tablet PO (09:28)
[2023-05-18] MEDS: amiodarone 200 mg Tablet PO (09:28)
[2023-05-18] MEDS: dilTIAZem ER (24HR) 240 mg Capsule PO (09:28)
[2023-05-18] MEDS: pregabalin 150 mg Capsule PO ×2 (09:28→19:06)
[2023-05-18] MEDS: atorvastatin 40 mg Tablet PO (09:29)
[2023-05-18] MEDS: tamsulosin 0.4 mg Capsule PO (09:29)
[2023-05-18] MEDS: perflutren protein-a microsphr 0.22 mg/mL SDV 3 mL IV (10:17)
[2023-05-18 11:08] LABS: Hepatitis B Surface AB 14.5 (11.5-1000); Hepatitis B Surface Antigen Non-Reactive (Nonreactive)
--- NOTE | 2023-05-18 11:19 | P.CONIM_ITS ---
Providers/Reason For Consult 2 Consulting Physician/Specialty*: [facility]/Nephrology Reason for Consult*: ESRD Attending Physician: Moisés Landon MD Primary Care Provider: Lovely Ivey MD History of Present Illness History of Present Illness Artie Quiles is a 68 year old male Patient is a 68-year-old male with past medical history of atrial fibrillation, on chronic anticoagulation, end-stage renal disease on dialysis per Wednesday schedule, obstructive sleep apnea, hypertension and COPD, chronic respiratory failure presented due to generalized weakness falls tremors and shortness of breath. He was sent from the dialysis center due to shortness of breath and weakness, tremors and also complained of frequent falls. Last dialysis was on Wednesday lab data is significant for white count of 21,000. Chest x-ray showed possible pneumonia he was placed on Rocephin and azithromycin. Medications/Allergies Home Medications Medication Instructions Recorded Confirmed Last Taken Type aspirin 81 mg tablet,delayed 81 mg PO DAILY 11/27/20 05/18/23 Unknown History release (Adult Low Dose Aspirin) atorvastatin 80 mg tablet 40 mg PO QPM 11/27/20 05/18/23 Unknown History docusate sodium 100 mg capsule 100 mg PO BID PRN Constipation 11/27/20 05/18/23 Unknown History nitroglycerin 0.4 mg sublingual 0.4 mg sublingual Q5M PRN Chest 11/27/20 05/18/23 Unknown History tablet Pain polyethylene glycol 3350 17 17 g PO DAILY PRN Constipation 11/27/20 05/18/23 Unknown History gram/dose oral powder pregabalin 150 mg capsule 150 mg PO BID 11/27/20 05/18/23 Unknown History inhalational spacing device (Allan #1 ea 05/20/21 05/18/23 Unknown Rx Aerosol Travis Enhancer spacer) ipratropium bromide 0.02 % 2.5 ml inhalation Q4H PRN 06/17/22 05/18/23 Unknown History solution for inhalation Shortness Of Breath Or Wheezing nebulizer accessories #1 ea 06/18/22 05/18/23 Unknown Rx sodium chloride 3 % for 4 ml inhalation BID PRN congestion 06/18/22 05/18/23 Unknown Rx nebulization #240 mL albuterol sulfate 2.5 mg/3 mL 2.5 mg inhalation Q4H PRN 08/21/22 05/18/23 Unknown History (0.083 %) solution for nebulization Shortness Of Breath Or Wheezing ascorbic acid (vitamin C) 500 mg 1,000 mg PO DAILY 08/21/22 05/18/23 Unknown History tablet (Vitamin C) fluticasone propionate 50 1 spray intranasal DAILY 08/21/22 05/18/23 Unknown History mcg/actuation nasal spray,suspension lidocaine 5 % topical ointment 1 applic topical DAILY PRN Pain 08/21/22 05/18/23 Unknown History naloxone 4 mg/actuation nasal spray 4 mg intranasal Q3M PRN Opioid 08/21/22 05/18/23 Unknown History Overdose tamsulosin 0.4 mg capsule 0.8 mg PO QPM 08/21/22 05/18/23 Unknown History vit C 250 mg-vit E 90 mg-zinc 40 1 cap PO BID 08/21/22 05/18/23 Unknown History mg-copper 1 [id number] capsule (PreserVision AREDS-2) zinc gluconate 50 mg tablet 50 mg PO DAILY 08/21/22 05/18/23 Unknown History diltiazem HCl 240 mg 240 mg PO DAILY #60 tabs 08/27/22 05/18/23 Unknown Rx tablet,extended release 24 hr (Cardizem LA) albuterol sulfate 90 mcg/actuation 1 inh inhalation QID PRN shortness 05/11/23 05/18/23 Unknown Rx aerosol inhaler (Ventolin HFA) of breath or wheezing #8.5 grams budesonide-formoterol HFA 160 2 puff inhalation BID #10.2 grams 05/11/23 05/18/23 Unknown Rx mcg-4.5 mcg/actuation aerosol inhaler (Symbicort) calcium acetate 667 mg tablet 1,334 mg PO TID 05/11/23 05/18/23 Unknown History carboxymethylcellulose sodium 0.5 1 drp ophthalmic (eye) QID PRN Dry 05/11/23 05/18/23 Unknown History % eye drops (Refresh Tears) Eye(S) ipratropium 0.5 mg-albuterol 3 mg 3 ml inhalation Q4H PRN wheezing 05/11/23 05/18/23 Unknown Rx (2.5 mg base)/3 mL nebulization #90 mL soln loratadine 10 mg tablet (Allergy 10 mg PO DAILY 05/11/23 05/18/23 Unknown History Relief (loratadine)) lorazepam 0.5 mg tablet See Rx Instructions .Route .COMPLEX 05/11/23 05/18/23 Unknown History primidone 50 mg tablet 50 mg PO BID 05/11/23 05/17/23 05/16/23 History ropinirole 1 mg tablet 1 mg PO BEDTIME 05/11/23 05/18/23 Unknown History tiotropium bromide 18 mcg capsule 1 cap inhalation DAILY #60 05/11/23 05/18/23 Unknown Rx with inhalation device (Spiriva inhalations with HandiHaler) carbamide peroxide 6.5 % ear drops 4 drp otic (ear) .EVERY 4 WEEKS 05/18/23 05/18/23 Unknown History PRN Ear Wax diphenhydramine 25 2 tab PO BEDTIME 05/18/23 05/18/23 Unknown History mg-acetaminophen 500 mg tablet (Tylenol PM Extra Strength) fluoxetine 20 mg capsule 60 mg PO QAM 05/18/23 05/18/23 Unknown History furosemide 80 mg tablet (Lasix) 80 mg PO BID 05/18/23 05/18/23 Unknown History guaifenesin 400 mg tablet 400 mg PO Q4H PRN Congestion 05/18/23 05/18/23 Unknown History hydrocodone 10 mg-acetaminophen 1 - 2 tab PO .EVERY 4-6 HOURS PRN 05/18/23 05/18/23 Unknown History 325 mg tablet Pain melatonin 5 mg tablet 10 mg PO BEDTIME 05/18/23 05/18/23 Unknown History nystatin 100,000 unit/mL oral 10 ml PO TID PRN unknown 05/18/23 05/18/23 Unknown History suspension omeprazole 40 mg capsule,delayed 40 mg PO QAM 05/18/23 05/18/23 Unknown History release polyvinyl alcohol 1.4 % eye drops 2 drp ophthalmic (eye) BID PRN Dry 05/18/23 05/18/23 Unknown History (Artificial Tears (polyvinyl Eyes alcohol)) vitamin B complex-vitamin C-folic 1 tab PO DAILY 05/18/23 05/18/23 Unknown History acid 0.8 mg tablet (Renal-Kerrie) Allergies Allergy/AdvReac Type Severity Reaction Status Date / Time Iodinated Contrast Media Allergy Severe anaphylaxis Verified 05/17/23 15:51 Current Medications Generic Name Dose Route Start Last Admin Trade Name Freq PRN Reason Stop Dose Admin Albuterol/Ipratropium 3 ml 05/17/23 21:44 05/18/23 07:56 Ipratropium-Albuterol 3 Ml Neb INHALATION 3 ml Q4H.RESPIRATORY SHANTE Administration Amiodarone HCl 200 mg 05/18/23 09:00 05/18/23 09:28 Amiodarone 200 Mg Tablet PO 200 mg DAILY SHANTE Administration Aspirin 81 mg 05/18/23 09:00 05/18/23 09:27 Aspirin 81 Mg Ec Tablet PO 81 mg DAILY SHANTE Administration Atorvastatin Calcium 40 mg 05/18/23 09:00 05/18/23 09:29 Atorvastatin 40 Mg Tablet PO 40 mg DAILY SHANTE Administration Budesonide 0.5 mg 05/17/23 21:44 05/18/23 07:56 Budesonide 0.5 Mg/2 Ml Neb INHALATION 0.5 mg BID.RESPIRATORY SHANTE Administration Calcium Acetate 667 mg 05/17/23 21:44 05/18/23 09:47 Calcium Acetate 667 Mg Capsule PO Not Given TID SHANTE Diltiazem HCl 240 mg 05/18/23 09:00 05/18/23 09:28 Diltiazem Er (24hr) 240 Mg Capsule PO 240 mg DAILY SHANTE Administration Heparin Sodium (Porcine) 5,000 unit 05/17/23 21:44 05/18/23 09:27 Heparin 5,000 Unit/Ml Inj 1 Ml SUBCUT 5,000 unit Q12H SHANTE Administration Ceftriaxone Sodium 1,000 mg/ 50 mls @ 100 mls/hr 05/17/23 21:44 05/18/23 00:51 Sodium Chloride IV Infused Q24H SHANTE Infusion Protocol Azithromycin 500 mg/ Sodium 250 mls @ 250 mls/hr 05/17/23 21:44 05/18/23 00:50 Chloride IV Infused Q24H SHANTE Infusion Protocol Lisinopril 10 mg 05/18/23 09:00 05/18/23 09:28 Lisinopril 10 Mg Tablet PO 10 mg DAILY SHANTE Administration Pantoprazole Sodium 40 mg 05/17/23 21:44 05/18/23 09:26 Pantoprazole 40 Mg Sdv IVP 40 mg Q12H SHANTE Administration Pregabalin 150 mg 05/18/23 09:00 05/18/23 09:28 Pregabalin 150 Mg Capsule PO 150 mg BID SHANTE Administration Primidone 50 mg 05/18/23 09:00 05/18/23 09:27 Primidone 50 Mg Tablet PO 50 mg BID SHANTE Administration Ropinirole HCl 1 mg 05/18/23 09:00 05/18/23 09:27 Ropinirole 1 Mg Tablet PO 1 mg DAILY SHANTE Administration Tamsulosin HCl 0.4 mg 05/18/23 09:00 05/18/23 09:29 Tamsulosin 0.4 Mg Capsule PO 0.4 mg DAILY SHANTE Administration PFSH Acute 2 PFSH: Medical History Volume overload Acute exacerbation of chronic obstructive airways disease Acute respiratory failure with hypoxemia End-stage renal disease (ESRD) ESRD (end stage renal disease) Septic shock Acute encephalopathy GI bleed Acute respiratory failure with hypoxia Hyperkalemia NSTEMI (non-ST elevated myocardial infarction) Rib fractures Kidney lesion Acute anemia Abnormal CT scan, kidney Legally blind NATHALY (obstructive sleep apnea) Nightly CPAP Hyperkalemia Sepsis EDWIN (acute kidney injury) Pneumonia Chest pain Atrial fibrillation CHF (congestive heart failure) COPD (chronic obstructive pulmonary disease) 2L Smoker Hyperlipidemia Hypertension History of type 2 diabetes mellitus Coronary artery disease UTI (urinary tract infection) Pyelonephritis of left kidney Surgical History History of heart artery stent Family History Mother Skin cancer (melanoma) Heart attack Social History Smoking and tobacco/nicotine status: former use of tobacco/nicotine Quit status (tobacco/nicotine): has quit using Year quit tobacco: August 2020 [id number] Second hand smoke exposure: Yes Alcohol intake: never Substance/Drug Use: never Caregiver/support person: Yes Lives independently: Yes Household members: significant other Marital status: service: Yes Current occupational status: retired and disabled Pets and animals: Yes Do you think of yourself as: Straight/Heterosexual Current gender identity: Male Vitals/I&O/Wt Last Vital Signs Temp 97.7 F 05/18/23 04:00 Pulse 69 05/18/23 08:01 Resp 18 05/18/23 08:01 BP 147/57 05/18/23 07:31 Pulse Ox 94 05/18/23 08:01 O2 Del Method Nasal Cannula 05/18/23 08:01 O2 Flow Rate 4 05/18/23 08:01 05/17/23 05/18/23 05/18/23 22:59 06:59 14:59 Intake Total 150 / 150 300 / 450 240 / 240 Balance 150 / 150 300 / 450 240 / 240 Weight last 48 hrs Weight 172.365 kg Weight 170.097 kg Weight 168.51 kg Weight 163.293 kg Data 05/18/23 03:50 05/18/23 03:50 Micro: Microbiology 05/17/23 17:47 Blood Culture - Preliminary Blood SPECIMEN COLLECTED 05/17/23 17:45 Blood Culture - Preliminary Blood SPECIMEN COLLECTED A&P Assessment and plan (1) ESRD (end stage renal disease): Plan 1. End-stage renal disease: On MWF schedule as patient outpatient, last dialysis was yesterday, due to increased O2 requirement and possible with volume overload we will try on short course of dialysis today and repeat HD again tomorrow. 2. Pneumonia: Management per primary team 3. Acute on chronic respiratory failure: Secondary to sleep apnea COPD, now has pneumonia 4. History of A-fib Patient evaluated using audiovisual cart. Time spent 40 minutes. Consult Attestations 2 Medical Necessity Statement: PER MEDICINE Coding Level of Care Code Acute Code for Chg Fwd Diagnoses ESRD (end stage renal disease) N18.6
[2023-05-18 14:40] LABS: Adenovirus Not Detected (NOT DETECT); Chlamydia Pneumoniae Not Detected (NOT DETECT); Coronavirus 229E,HKU1,NL63,OC4 Not Detected (NOT DETECT); Human Metapneumovirus Not Detected (NOT DETECT); Human Rhinovirus/Enterovirus Not Detected (NOT DETECT); Influenza A Not Detected (NOT DETECT); Influenza A H1 Not Detected (NOT DETECT); Influenza A H1-2009 Not Detected (NOT DETECT); Influenza A H3 Not Detected (NOT DETECT); Influenza B Not Detected (NOT DETECT); Mycoplasma Pneumoniae Not Detected (NOT DETECT); Parainfluenza Virus Type 1 Not Detected (NOT DETECT); Parainfluenza Virus Type 2 Not Detected (NOT DETECT); Parainfluenza Virus Type 3 Not Detected (NOT DETECT); Parainfluenza Virus Type 4 Not Detected (NOT DETECT); Respiratory Syncytial Virus A Not Detected (NOT DETECT); Respiratory Syncytial Virus B Not Detected (NOT DETECT); SARS-COV-2 Not Detected (NOT DETECT)
--- NOTE | 2023-05-18 15:51 | P.PN_ITS ---
Vitals/I&O/Wt Last Vital Signs Temp 97.8 F 05/18/23 11:29 Pulse 98 05/18/23 11:39 Resp 16 05/18/23 11:39 BP 133/66 05/18/23 11:29 Pulse Ox 97 05/18/23 11:39 O2 Del Method Nasal Cannula 05/18/23 11:39 O2 Flow Rate 4 05/18/23 11:39 05/18/23 05/18/23 05/18/23 06:59 14:59 22:59 Intake Total 300 / 450 480 / 480 Balance 300 / 450 480 / 480 Weight last 48 hrs Weight 172.365 kg Weight 170.097 kg Weight 168.51 kg Weight 163.293 kg Physical Exam 2 Const: COMMON NORMALS: no acute distress and patient oriented x3 Resp: COMMON NORMALS: normal respiratory effort, No retractions, No use of accessory muscles and clear to auscultation bilaterally AUSCULTATION: clear to auscultation bilaterally Cardio: COMMON NORMALS: regular rate, regular rhythm, S1 normal heart sound present and S2 normal heart sound present RATE: regular rate RHYTHM: r egular rhythm HEART SOUNDS: S1 normal heart sound present and S2 normal heart sound present GI: COMMON NORMALS: Normal to inspection, nondistended, normoactive bowel sounds present and non-tender Extremity: COMMON NORMALS: no pedal edema Neuro: COMMON NORMALS: patient oriented x3 Psych: COMMON NORMALS: mental status grossly normal Data 05/18/23 03:50 05/18/23 03:50 Micro: Microbiology 05/18/23 09:26 Gram Stain - Final Sputum - Expectorated Sputum 05/17/23 17:47 Blood Culture - Preliminary Blood SPECIMEN COLLECTED 05/17/23 17:45 Blood Culture - Preliminary Blood SPECIMEN COLLECTED A&P Assessment and plan (1) Community acquired pneumonia: (2) COPD (chronic obstructive pulmonary disease): Qualifiers: COPD type: COPD with acute exacerbation Qualified Code(s): J44.1 - Chronic obstructive pulmonary disease with (acute) exacerbation (3) Hypertension: (4) Coronary artery disease: (5) Atrial fibrillation: (6) Hyperlipidemia: (7) ESRD (end stage renal disease): (8) Frequent falls: (9) Atrial fibrillation with RVR: Plan Community-acquired pneumonia, ? Sputum cultures, ? Blood cultures, ? Respiratory viral panel, ? Continue Rocephin and azithromycin End-stage renal disease, appears fluid overloaded, consult nephro for dialysis Atrial fibrillation, currently in A-fib heart rate in the 120s to 130s despite getting home p.o. medications, start amiodarone drip COPD, not in exacerbation, will hold off on steroids NSTEMI no chest pain complaints serial ekg, serial troponin cardiac echo History of CAD no chest pain complaints, serial EKGs, telemetry monitoring NATHALY continue CPAP Frequent falls CT of the head WNL, PT OT Morbid obesity, Parkinsonian tremor, Full code ? Heparin for DVT prophylaxis Attestations 2 Medical Necessity Statement*: Patient requires hospitalization for community-acquired pneumonia, NSTEMI Diagnoses Community acquired pneumonia J18.9 COPD (chronic obstructive pulmonary disease) J44.1 COPD type: COPD with acute exacerbation Hypertension I10 Coronary artery disease I25.10 Atrial fibrillation, unspecified type I48.91 Hyperlipidemia E78.5 ESRD (end stage renal disease) N18.6 Frequent falls R29.6 Atrial fibrillation with RVR I48.91
--- NOTE | 2023-05-18 16:25 | PC.NURSE ---
to dialysis via bed at 1615
--- NOTE | 2023-05-18 18:46 | PC.HD ---
Per paper goods machine set up operator's orders, heparin 1000 unit loading dose administered via venous port of HD catheter at 1619. Heparin 500 units maintenance dose administered at 1715 via HD circuit. Heparin 2000 units was instilled into each port of patient's HD catheter after treatment termination.
[2023-05-18] MEDS: calcium acetate 667 mg Capsule PO (19:06)
[2023-05-18] MEDS: azithromycin 500 MG in sodium chloride 0.9% 250 ML 250 MG IV (22:09)
[2023-05-18] MEDS: cefTRIAXone 1,000 MG in sodium chloride 0.9% (plus) 50 ML 100 MG IV (22:10)
[2023-05-19] VITALS (16 sets, daily range): BP systolic 104–153; BP diastolic 41–98; PULSE 71–88; RESP 15–23; TEMP 36.4–36.9; O2SAT 93–98; BMI 51.7
[2023-05-19] MEDS: ipratropium-albuterol 3 mL Neb INHALATION ×4 (00:02→19:20)
[2023-05-19 05:13] LABS: Basophils % 0.3 %; Eosinophils # 0.5 10^3/uL (0.0-0.8); Eosinophils % 3.9 %; Hematocrit 38.7 % (37-53); Lymphocytes # 2.7 10^3/uL (0.8-4.8); Lymphocytes % 20.9 %; Mean Corpuscular Hemoglobin 29.5 pg (27-33); Mean Corpuscular Volume 98.5 fl (82-101); Mean Platelet Volume 11.2 fL (7.4-10.4); Monocytes # 1.2 10^3/uL (0.2-0.9); Monocytes % 9.6 %; Neutrophils # 8.26 10^3/uL (1.8-7.7); Neutrophils % 64.9 %; Nucleated Red Blood Cells % 0 %; Platelet Count 326 10^3/cmm (157-399); Red Blood Count 3.93 10^6/uL (3.85-5.65); Red Cell Distribution Width 14.7 % (12.1-15.1); White Blood Count 12.75 10^3/uL (3.29-11.43)
[2023-05-19 05:36] LABS: Alanine Aminotransferase 16 U/L (0-41); Alkaline Phosphatase 119 U/L (40-130); Anion Gap 22.7 (5-19); Aspartate Amino Transferase 20 U/L (0-40); Blood Urea Nitrogen 28 mg/dL (8-23); C Reactive Protein 102.7 mg/L (0.0-4.9); Calcium 7.9 mg/dL (8.5-10.5); Carbon Dioxide 25 mmol/L (22-29); Chloride 93 mmol/L (98-107); Globulin 2.9 g/dL (1.3-4.6); Glomerular Filtration Rate 8.5 mL/min (90-130); Glucose 101 mg/dL (65-115); Magnesium 2.1 mg/dL (1.7-2.3); Osmolality Calculated 288 mOsm/kg (285-295); Phosphorus 6.5 mg/dL (2.5-4.5); Potassium 4.7 mmol/L (3.5-5.1); Sodium 136 mmol/L (136-145); Total Bilirubin 0.3 mg/dL (0.15-1.2); Total Protein 6.9 g/dL (6.6-8.7)
[2023-05-19 05:41] LABS: NT Pro B Type Natriuretic Pept 3252 pg/mL (0-125); Procalcitonin 0.25 ng/mL (0-0.5)
[2023-05-19] MEDS: ropinirole 1 mg Tablet PO (07:57)
[2023-05-19] MEDS: aspirin 81 mg EC Tablet PO (07:57)
[2023-05-19] MEDS: dilTIAZem ER (24HR) 240 mg Capsule PO (07:57)
[2023-05-19] MEDS: primidone 50 mg Tablet PO ×2 (07:57→17:33)
[2023-05-19] MEDS: amiodarone 200 mg Tablet PO (07:57)
[2023-05-19] MEDS: atorvastatin 40 mg Tablet PO (07:57)
[2023-05-19] MEDS: lisinopril 10 mg Tablet PO (07:58)
[2023-05-19] MEDS: tamsulosin 0.4 mg Capsule PO (08:01)
[2023-05-19] MEDS: pregabalin 150 mg Capsule PO ×2 (08:01→17:33)
[2023-05-19] MEDS: calcium acetate 667 mg Capsule PO ×2 (08:01→17:33)
[2023-05-19] MEDS: budesonide 0.5 mg/2 mL Neb INHALATION ×2 (08:03→19:20)
[2023-05-19] MEDS: heparin 5,000 unit/mL INJ 1 mL 5000 UNIT SUBCUT ×2 (08:03→21:06)
[2023-05-19] MEDS: pantoprazole 40 mg SDV IVP ×2 (08:04→21:06)
[2023-05-19] MEDS: heparin, porcine 1,000 unit/mL INJ 10 mL 1000 UNIT IV (10:15)
--- NOTE | 2023-05-19 10:19 | PC.NURSE ---
to dialysis via bed at this time
--- NOTE | 2023-05-19 14:32 | PC.NURSE ---
return from dialysis via bed.3 liters removed.tolerated well.
--- NOTE | 2023-05-19 17:19 | P.PN_ITS ---
Subjective 2 Subjective: feeling better except for tremors, have existed for months, has seen neurology, concerned about Parkinsons Vitals/I&O/Wt Last Vital Signs Temp 97.5 F L 05/19/23 16:15 Pulse 88 05/19/23 16:15 Resp 23 H 05/19/23 16:15 BP 115/51 05/19/23 16:15 Pulse Ox 95 05/19/23 15:14 O2 Del Method Nasal Cannula 05/19/23 15:14 O2 Flow Rate 3 05/19/23 15:14 05/19/23 05/19/23 05/19/23 06:59 14:59 22:59 Intake Total 250 / 1080 Balance 250 / -1220 Weight last 48 hrs Weight 168.4 kg Weight 168.4 kg Weight 172.365 kg Weight 170.097 kg Weight 168.51 kg Physical Exam 2 Const: COMMON NORMALS: no acute distress and alert Neck/C-Spine: OTHER: Right IJ tunneled HD catheter Neuro: SENSORIUM/ORIENTATION: Yes alert Data 05/19/23 04:30 05/19/23 04:30 Micro: Microbiology 05/18/23 09:26 Gram Stain - Final Sputum - Expectorated Sputum Sputum Culture - Preliminary 05/17/23 17:47 Blood Culture - Preliminary Blood NEGATIVE TO DATE 05/17/23 17:45 Blood Culture - Preliminary Blood NEGATIVE TO DATE Other data: seen via telemedicine with assistance of RN at bedside A&P Assessment and plan (1) ESRD (end stage renal disease): Plan ESRD, HD M/W/F. HD today with 3L UF. Plan for left forearm AVF next week, recommend remove IV access from left arm Stable for discharge from renal standpoint, return to outpt dialysis Wednesday Attestations 2 Medical Necessity Statement*: per primary service Time Spent in Patient Care: 16 - 35 minutes Coding Level of Care Code Acute Code for Chg Fwd Diagnoses ESRD (end stage renal disease) N18.6
--- NOTE | 2023-05-19 18:12 | P.PN_ITS ---
Subjective 2 Subjective: Patient was seen this morning, he tells me that his shortness of breath is improved, he continues to have tremors of his bilateral upper extremities, he is already taking Primodine Vitals/I&O/Wt Last Vital Signs Temp 97.5 F L 05/19/23 16:15 Pulse 88 05/19/23 16:15 Resp 23 H 05/19/23 16:15 BP 115/51 05/19/23 16:15 Pulse Ox 95 05/19/23 15:14 O2 Del Method Nasal Cannula 05/19/23 15:14 O2 Flow Rate 3 05/19/23 15:14 05/19/23 05/19/23 05/19/23 06:59 14:59 22:59 Intake Total 250 / 1080 Balance 250 / -1220 Weight last 48 hrs Weight 168.4 kg Weight 168.4 kg Weight 172.365 kg Weight 170.097 kg Weight 168.51 kg Physical Exam 2 Const: COMMON NORMALS: no acute distress and patient oriented x3 Resp: COMMON NORMALS: normal respiratory effort, No retractions, No use of accessory muscles and clear to auscultation bilaterally AUSCULTATION: clear to auscultation bilaterally Cardio: COMMON NORMALS: regular rate, regular rhythm, S1 normal heart sound present and S2 normal heart sound present RATE: regular rate RHYTHM: r egular rhythm HEART SOUNDS: S1 normal heart sound present and S2 normal heart sound present GI: COMMON NORMALS: Normal to inspection, nondistended, normoactive bowel sounds present and non-tender Neuro: COMMON NORMALS: patient oriented x3 Psych: COMMON NORMALS: mental status grossly normal Skin: NARRATIVE SKIN EXAM: 1+ edema Data 05/19/23 04:30 05/19/23 04:30 Micro: Microbiology 05/18/23 09:26 Gram Stain - Final Sputum - Expectorated Sputum Sputum Culture - Preliminary 05/17/23 17:47 Blood Culture - Preliminary Blood NEGATIVE TO DATE 05/17/23 17:45 Blood Culture - Preliminary Blood NEGATIVE TO DATE A&P Assessment and plan (1) Community acquired pneumonia: (2) COPD (chronic obstructive pulmonary disease): Qualifiers: COPD type: COPD with acute exacerbation Qualified Code(s): J44.1 - Chronic obstructive pulmonary disease with (acute) exacerbation (3) Hypertension: (4) Coronary artery disease: (5) Atrial fibrillation: (6) Hyperlipidemia: (7) ESRD (end stage renal disease): (8) Frequent falls: (9) Atrial fibrillation with RVR: Plan Community-acquired pneumonia, ? Sputum cultures, ? Blood cultures, ? Respiratory viral panel, ? Continue Rocephin and azithromycin End-stage renal disease, appears fluid overloaded, consult nephro for dialysis Atrial fibrillation, continue home medications COPD, not in exacerbation, will hold off on steroids NSTEMI no chest pain complaints serial ekg, serial troponin cardiac echo History of CAD no chest pain complaints, serial EKGs, telemetry monitoring NATHALY continue CPAP Frequent falls CT of the head WNL, PT OT Morbid obesity, Parkinsonian tremor, Full code ? Heparin for DVT prophylaxis Attestations 2 Medical Necessity Statement*: Patient requires hospitalization for community-acquired pneumonia Diagnoses Community acquired pneumonia J18.9 COPD (chronic obstructive pulmonary disease) J44.1 COPD type: COPD with acute exacerbation Hypertension I10 Coronary artery disease I25.10 Atrial fibrillation, unspecified type I48.91 Hyperlipidemia E78.5 ESRD (end stage renal disease) N18.6 Frequent falls R29.6 Atrial fibrillation with RVR I48.91
[2023-05-19] MEDS: cefTRIAXone 1,000 MG in sodium chloride 0.9% (plus) 50 ML 100 MG IV (21:06)
[2023-05-19] MEDS: azithromycin 500 MG in sodium chloride 0.9% 250 ML 250 MG IV (21:06)
[2023-05-20] VITALS (7 sets, daily range): BP systolic 93–101; BP diastolic 52–55; PULSE 69–83; RESP 15–20; TEMP 36.4; O2SAT 89–95
[2023-05-20] MEDS: ipratropium-albuterol 3 mL Neb INHALATION ×3 (00:15→08:06)
[2023-05-20 05:06] LABS: Basophils % 0.4 %; Eosinophils # 0.4 10^3/uL (0.0-0.8); Eosinophils % 4.1 %; Hematocrit 37.4 % (37-53); Lymphocytes # 2.5 10^3/uL (0.8-4.8); Lymphocytes % 23.3 %; Mean Corpuscular HGB Conc 30.2 g/dL (30-55); Mean Corpuscular Hemoglobin 29.7 pg (27-33); Mean Corpuscular Volume 98.4 fl (82-101); Mean Platelet Volume 11.2 fL (7.4-10.4); Monocytes # 1.2 10^3/uL (0.2-0.9); Monocytes % 11.3 %; Neutrophils # 6.41 10^3/uL (1.8-7.7); Neutrophils % 60.5 %; Nucleated Red Blood Cells % 0 %; Platelet Count 306 10^3/cmm (157-399); Red Cell Distribution Width 14.6 % (12.1-15.1); White Blood Count 10.58 10^3/uL (3.29-11.43)
[2023-05-20 05:31] LABS: Alanine Aminotransferase 12 U/L (0-41); Albumin Level 3.3 g/dL (3.5-5.2); Alkaline Phosphatase 108 U/L (40-130); Anion Gap 17.1 (5-19); Aspartate Amino Transferase 16 U/L (0-40); Blood Urea Nitrogen 28 mg/dL (8-23); C Reactive Protein 70.9 mg/L (0.0-4.9); Calcium 7.5 mg/dL (8.5-10.5); Carbon Dioxide 27 mmol/L (22-29); Chloride 97 mmol/L (98-107); Globulin 3.6 g/dL (1.3-4.6); Glomerular Filtration Rate 8.4 mL/min (90-130); Glucose 103 mg/dL (65-115); Osmolality Calculated 290 mOsm/kg (285-295); Phosphorus 6.2 mg/dL (2.5-4.5); Potassium 4.1 mmol/L (3.5-5.1); Sodium 137 mmol/L (136-145); Total Bilirubin 0.3 mg/dL (0.15-1.2); Total Protein 6.9 g/dL (6.6-8.7)
[2023-05-20 05:36] LABS: NT Pro B Type Natriuretic Pept 2180 pg/mL (0-125); Procalcitonin 0.19 ng/mL (0-0.5)
[2023-05-20] MEDS: budesonide 0.5 mg/2 mL Neb INHALATION (08:06)
[2023-05-20] MEDS: dilTIAZem ER (24HR) 240 mg Capsule PO (08:34)
[2023-05-20] MEDS: tamsulosin 0.4 mg Capsule PO (08:37)
[2023-05-20] MEDS: pregabalin 150 mg Capsule PO (08:37)
[2023-05-20] MEDS: amiodarone 200 mg Tablet PO (08:37)
[2023-05-20] MEDS: calcium acetate 667 mg Capsule PO (08:37)
[2023-05-20] MEDS: atorvastatin 40 mg Tablet PO (08:37)
[2023-05-20] MEDS: primidone 50 mg Tablet PO (08:37)
[2023-05-20] MEDS: ropinirole 1 mg Tablet PO (08:37)
[2023-05-20] MEDS: aspirin 81 mg EC Tablet PO (08:37)
--- NOTE | 2023-05-20 11:23 | PM.DCS ---
Discharge Providers Date of Admission: 05/17/23 17:07 Date of Discharge: May 20, 2023 Attending Provider at Admission: Moisés Landon MD Attending Provider at Discharge: Moisés Landon MD Primary Care Provider: Lovely Ivey MD Diagnoses at Discharge Discharge Diagnosis (1) Community acquired pneumonia: Status: Acute (2) COPD (chronic obstructive pulmonary disease): Status: Acute Qualifiers: COPD type: COPD with acute exacerbation Qualified Code(s): J44.1 - Chronic obstructive pulmonary disease with (acute) exacerbation Permanent problem details: 2L (3) Hypertension: Status: Acute (4) Coronary artery disease: Status: Acute (5) Atrial fibrillation: Status: Acute (6) Hyperlipidemia: Status: Acute (7) ESRD (end stage renal disease): Status: Acute (8) Frequent falls: Status: Acute (9) Atrial fibrillation with RVR: Status: Acute Reason for Visit Reason for Visit: weakness Hospital Course Hospital Course Artie Quiles is a 68 year old male with a past medical history of morbid obesity, atrial fibrillation not on anticoagulation due to history of GI bleed, end-stage renal disease on dialysis, obstructive sleep apnea on CPAP, history of CAD hypertension, hyperlipidemia, COPD, who presents to [facility] due to increased weakness, frequent falls, shortness of breath. Patient tells me chronically uses oxygen at home, typically 2 to 3 L. Here he is on 4 L. He does report shortness of breath over the last week, he is compliant with dialysis, he roughly had 2 L taken off today. However he does report generalized weakness, he has had frequent falls he cannot figure out why he is falling, no history of strokes, denies any dizziness, no vertigo, no knee pain, no hip pain, Patient was admitted to [facility] for shortness of breath secondary to commune acquired pneumonia, received broad-spectrum antibiotic therapy, overall clinically improved for his fluid overload he received inpatient dialysis, resume his outpatient dialysis schedule he had complaints of persistent Tremor during his hospitalization, he is on Primodine, I added low-dose carbidopa, follow up with neurology and primary care as outpatient Physical Exam Const: COMMON NORMALS: no acute distress and patient oriented x3 Resp: COMMON NORMALS: normal respiratory effort, No retractions, No use of accessory muscles and clear to auscultation bilaterally AUSCULTATION: clear to auscultation bilaterally Cardio: COMMON NORMALS: regular rate, regular rhythm, S1 normal heart sound present and S2 normal heart sound present RATE: regular rate RHYTHM: regular rhythm HEART SOUNDS: S1 normal heart sound present and S2 normal heart sound present GI: COMMON NORMALS: Normal to inspection, nondistended, normoactive bowel sounds present and non-tender Extremity: COMMON NORMALS: no pedal edema Neuro: COMMON NORMALS: patient oriented x3 Psych: COMMON NORMALS: mental status grossly normal Discharge Data Studies Completed and Pending Completed Studies During Hospitalization Category Date Time Status CT head wo con* [id number] Routine Cat Scan 05/17/23 21:44 Completed XR chest 1V portable [id number] Stat Exams 05/17/23 15:58 Completed CV. echo wo/w contrast [id number] Routine Ultrasound 05/18/23 08:36 Completed Pending at discharge Category Date Time Status Blood Culture Stat Lab 05/17/23 17:47 Results Sputum Culture and Gram Stain Stat Lab 05/18/23 09:26 Results Urinalysis Stat Lab 05/17/23 15:48 Uncollected Radiology Impressions Chest X-Ray 05/17/23 15:58 IMPRESSION: Cardiomegaly with bibasilar consolidations. Head CT 05/17/23 21:44 IMPRESSION: 1. No acute intracranial hemorrhage or mass effect. 2. Paranasal sinus findings as discussed above. 3. Nonspecific left parotid gland nodule/mass, see above details/discussion. 4. Other findings discussed above. Laboratory Results WBC 10.58 10^3/uL (3.29-11.43) 05/20/23 04:30 RBC 3.80 10^6/uL (3.85-5.65) L 05/20/23 04:30 Hgb 11.30 g/dL (11.27-16.99) 05/20/23 04:30 Hct 37.4 % (37-53) 05/20/23 04:30 MCV 98.4 fl (82-101) 05/20/23 04:30 MCH 29.7 pg (27-33) 05/20/23 04:30 MCHC 30.2 g/dL (30-55) 05/20/23 04:30 RDW 14.6 % (12.1-15.1) 05/20/23 04:30 Plt Count 306 10^3/cmm (157-399) 05/20/23 04:30 MPV 11.2 fL (7.4-10.4) H 05/20/23 04:30 Neut % (Auto) 60.5 % 05/20/23 04:30 Lymph % (Auto) 23.3 % 05/20/23 04:30 [place] % (Auto) 11.3 % 05/20/23 04:30 Eos % (Auto) 4.1 % 05/20/23 04:30 Baso % (Auto) 0.4 % 05/20/23 04:30 Neut # (Auto) 6.41 10^3/uL (1.8-7.7) 05/20/23 04:30 Lymph # (Auto) 2.5 10^3/uL (0.8-4.8) 05/20/23 04:30 [place] # (Auto) 1.2 10^3/uL (0.2-0.9) H 05/20/23 04:30 Eos # (Auto) 0.4 10^3/uL (0.0-0.8) 05/20/23 04:30 Baso # (Auto) 0.0 10^3/uL (0.0-0.1) 05/20/23 04:30 Nucleated RBC % (auto) 0 % 05/20/23 04:30 Nucleated RBCs # 0.0 /100WBC 05/20/23 04:30 Specimen Type Arterial 05/17/23 16:15 Sample Site Brachial, right 05/17/23 16:15 ABG pH 7.42 (7.35-7.45) 05/17/23 16:15 ABG pCO2 50.4 mmHg (35-45) H 05/17/23 16:15 ABG pO2 56.2 mmHg (80.0-100.0) L 05/17/23 16:15 ABG PO2/FiO2 Ratio 0 05/17/23 16:15 ABG HCO3 32.3 mmol/L (22-26) H 05/17/23 16:15 ABG O2 Saturation 89.7 05/17/23 16:15 ABG Base Excess 6.5 mmol/L (-2.0-2.0) H 05/17/23 16:15 [place] Test N/a 05/17/23 16:15 A-a O2 Gradient 10.8 mmHg (5-10) H 05/17/23 16:15 Hematocrit 39.4 % (42-52) L 05/17/23 16:15 Hgb O2 Saturation 87.9 % (95-100) L 05/17/23 16:15 Carboxyhemoglobin 1.5 %THgb (0.4-20.1) 05/17/23 16:15 Methemoglobin 0.6 % (0.4-1.5) 05/17/23 16:15 Total Hemoglobin 12.9 g/dL (14-18) L 05/17/23 16:15 Sodium 140.0 mmol/L (131-143) 05/17/23 16:15 Potassium 3.9 mmol/L (3.5-5.0) 05/17/23 16:15 Glucose 124.0 mg/dL (70-115) H 05/17/23 16:15 Ionized Calcium 1.0 mmol/L (1.1-1.4) L 05/17/23 16:15 O2 Delivery Device Nc 05/17/23 16:15 O2 Liters/Min 2.0 % 05/17/23 16:15 FiO2 28.0 % 05/17/23 16:15 Medical Record Administrator ID Amh 05/17/23 16:15 Sodium 137 mmol/L (136-145) 05/20/23 04:30 Potassium 4.1 mmol/L (3.5-5.1) 05/20/23 04:30 Chloride 97 mmol/L (98-107) L 05/20/23 04:30 Carbon Dioxide 27 mmol/L (22-29) 05/20/23 04:30 Anion Gap 17.1 (5-19) 05/20/23 04:30 BUN 28 mg/dL (8-23) H 05/20/23 04:30 Creatinine 6.6 mg/dL (0.7-1.2) H* 05/20/23 04:30 GFR Calculation 8.4 mL/min (90-130) L 05/20/23 04:30 Glucose 103 mg/dL (65-115) 05/20/23 04:30 Estimat Average Glucose 114 05/17/23 17:47 Hemoglobin A1c 5.6 % (4.0-6.0) 05/17/23 17:47 Calculated Osmolality 290 mOsm/kg (285-295) 05/20/23 04:30 Lactic Acid 1.6 mmol/L (0.5-2.2) 05/17/23 17:45 Calcium 7.5 mg/dL (8.5-10.5) L 05/20/23 04:30 Phosphorus 6.2 mg/dL (2.5-4.5) H 05/20/23 04:30 Magnesium 2.0 mg/dL (1.7-2.3) 05/20/23 04:30 Total Bilirubin 0.3 mg/dL (0.15-1.2) 05/20/23 04:30 AST 16 U/L (0-40) 05/20/23 04:30 ALT 12 U/L (0-41) 05/20/23 04:30 Alkaline Phosphatase 108 U/L (40-130) 05/20/23 04:30 Troponin T Baseline 140 ng/L (0-15) H* 05/17/23 17:45 Troponin T 120 Minute 132.6 ng/L (0-15) H 05/17/23 20:00 Delta Troponin T -7.4 ABS# (0-10) L 05/17/23 20:00 Troponin T Hi Sens 6Hr 136.9 ng/L (0-15) H 05/17/23 23:40 Troponin T Hi Sens 6Hr Delta -3.1 ng/L (0-12) L 05/17/23 23:40 C-Reactive Protein 70.9 mg/L (0.0-4.9) H 05/20/23 04:30 NT-Pro-B Natriuret Pep 2180 pg/mL (0-125) H 05/20/23 04:30 Total Protein 6.9 g/dL (6.6-8.7) 05/20/23 04:30 Albumin 3.3 g/dL (3.5-5.2) L 05/20/23 04:30 Globulin 3.6 g/dL (1.3-4.6) 05/20/23 04:30 Triglycerides 116 mg/dL (0-150) 05/17/23 15:35 Cholesterol 102 mg/dL (0-200) 05/17/23 15:35 LDL Cholesterol, Calc 43 mg/dL (50-129) L 05/17/23 15:35 HDL Cholesterol 36 mg/dL (60-100) L 05/17/23 15:35 LDL/HDL Ratio 1.19 RATIO (0.00-3.22) 05/17/23 15:35 Cholesterol/HDL Ratio 2.83 mg/dL (1.0-5.00) 05/17/23 15:35 Procalcitonin 0.19 ng/mL (0-0.5) 05/20/23 04:30 TSH 1.23 uIU/mL (0.27-4.20) 05/17/23 15:35 Nasal Influ A H1 2009 PCR Not detected (NOT DETECT) 05/17/23 18:20 Adenovirus (PCR) Not detected (NOT DETECT) 05/17/23 18:20 C. pneumoniae DNA (PCR) Not detected (NOT DETECT) 05/17/23 18:20 Coronavirus 229E (PCR) Not detected (NOT DETECT) 05/17/23 18:20 Hep Bs Antigen Non-reactive (Nonreactive) 05/18/23 03:50 Hep Bs Antibody 14.5 (11.5-1000) 05/18/23 03:50 Human Metapneumovir PCR Not detected (NOT DETECT) 05/17/23 18:20 Influenza A (H1) PCR Not detected (NOT DETECT) 05/17/23 18:20 Influenza A (H3) PCR Not detected (NOT DETECT) 05/17/23 18:20 Influenza Type A (PCR) Not detected (NOT DETECT) 05/17/23 18:20 Influenza Type B (PCR) Not detected (NOT DETECT) 05/17/23 18:20 M. pneumoniae (PCR) Not detected (NOT DETECT) 05/17/23 18:20 Parainfluenza 1 (PCR) Not detected (NOT DETECT) 05/17/23 18:20 Parainfluenza 2 (PCR) Not detected (NOT DETECT) 05/17/23 18:20 Parainfluenza 3 (PCR) Not detected (NOT DETECT) 05/17/23 18:20 Parainfluenza 4 (PCR) Not detected (NOT DETECT) 05/17/23 18:20 RSV Type A (PCR) Not detected (NOT DETECT) 05/17/23 18:20 RSV Type B (PCR) Not detected (NOT DETECT) 05/17/23 18:20 Entero/Rhino (PCR) Not detected (NOT DETECT) 05/17/23 18:20 SARS-CoV-2 (PCR) Not detected (NOT DETECT) 05/17/23 18:20 Vitals Last Vital Signs Temp 97.6 F 05/20/23 03:48 Pulse 69 05/20/23 08:00 Resp 18 05/20/23 08:00 BP 93/52 05/20/23 07:29 Pulse Ox 95 05/20/23 08:00 O2 Del Method Nasal Cannula 05/20/23 08:00 O2 Flow Rate 3 05/20/23 08:00 Discharge Plan Discharge Patient Disposition: Home Condition: Stable Prescriptions: New amiodarone [Pacerone] 200 mg Tablet 200 mg PO DAILY 30 Days Qty: 30 0RF doxycycline monohydrate 100 mg tablet 100 mg PO BID 5 Days Qty: 10 0RF carbidopa-levodopa 25-100 mg tablet 0.5 tab PO TID 7 Days Qty: 11 0RF lisinopril 10 mg Tablet 10 mg PO DAILY 30 Days Qty: 30 0RF Continued atorvastatin 80 mg tablet 40 mg PO QPM docusate sodium 100 mg capsule 100 mg PO BID PRN (Reason: Constipation) nitroglycerin 0.4 mg tablet, sublingual 0.4 mg sublingual Q5M PRN (Reason: Chest Pain) Rx Instructions: do not exceed 3 doses per episode polyethylene glycol 3350 17 gram/dose powder 17 g PO DAILY PRN (Reason: Constipation) pregabalin 150 mg capsule 150 mg PO BID aspirin [Adult Low Dose Aspirin] 81 mg tablet,delayed release (DR/EC) 81 mg PO DAILY (DME) Allan Aerosol [place] Enhancer Spacer See Rx Instructions .Route Qty: 1 2RF Rx Instructions: As directed ipratropium bromide 0.02 % solution 2.5 ml inhalation Q4H PRN (Reason: Shortness Of Breath Or Wheezing) primidone 50 mg tablet 50 mg PO BID ropinirole 1 mg tablet 1 mg PO BEDTIME lorazepam 0.5 mg tablet See Rx Instructions .ROUTE .COMPLEX Rx Instructions: take one tab po three times a day as needed for anxiety pre mri procedure carboxymethylcellulose sodium [Refresh Tears] 0.5 % drops 1 drp ophthalmic (eye) QID PRN (Reason: Dry Eye(S)) loratadine [Allergy Relief (loratadine)] 10 mg tablet 10 mg PO DAILY calcium acetate 667 mg tablet 1,334 mg PO TID (DME) nebulizer accessories Kit See Rx Instructions .Route Qty: 1 0RF Rx Instructions: all nebulizer supplies needed sodium chloride 3 % solution for nebulization 4 ml inhalation BID PRN (Reason: congestion) Qty: 240 3RF albuterol sulfate [Ventolin HFA] 90 mcg/actuation HFA aerosol inhaler 1 inh inhalation QID PRN (Reason: shortness of breath or wheezing) Qty: 8.5 6RF budesonide-formoterol [Symbicort] 160-4.5 mcg/actuation HFA aerosol inhaler 2 puff inhalation BID Qty: 10.2 6RF tiotropium bromide [Spiriva with HandiHaler] 18 mcg capsule, w/inhalation device 1 cap inhalation DAILY Qty: 60 6RF Rx Instructions: puncture 1 cap using device; one dose = 2 inhalations ipratropium-albuterol 0.5 mg-3 mg(2.5 mg base)/3 mL solution for nebulization 3 ml inhalation Q4H PRN (Reason: wheezing) Qty: 90 3RF albuterol sulfate 2.5 mg /3 mL (0.083 %) Solution For Nebulization 2.5 mg INHALATION Q4H PRN (Reason: Shortness Of Breath Or Wheezing) ascorbic acid (vitamin C) [Vitamin C] 500 mg Tablet 1,000 mg PO DAILY tamsulosin 0.4 mg Capsule 0.8 mg PO QPM zinc gluconate 50 mg Tablet 50 mg PO DAILY fluticasone propionate 50 mcg/actuation [place],Suspension 1 spray INTRANASAL DAILY Rx Instructions: administer into each nostril lidocaine 5 % Ointment 1 applic TOPICAL DAILY PRN (Reason: Pain) PreserVision AREDS-2 250-90-40-1 mg Capsule 1 cap PO BID naloxone 4 mg/actuation [place],Non-Aerosol 4 mg INTRANASAL Q3M PRN (Reason: Opioid Overdose) Rx Instructions: spray 1 dose into ONE nostril; alternate nostrils w each dose until help arrives diltiazem HCl [Cardizem LA] 240 mg tablet extended release 24 hr 240 mg PO DAILY Qty: 60 2RF Artificial Tears (polyvin alc) 1.4 % Drops 2 drp ophthalmic (eye) BID PRN (Reason: Dry Eyes) omeprazole [Prilosec] 40 mg Capsule,Delayed Release(Dr/Ec) 40 mg PO QAM carbamide peroxide 6.5 % Drops 4 drp otic (ear) .EVERY 4 WEEKS PRN (Reason: Ear Wax) fluoxetine 20 mg Capsule 60 mg PO QAM nystatin 100,000 unit/mL Suspension 10 ml PO TID PRN (Reason: unknown) Rx Instructions: swish and swallow shake well before using for 10 days Renal-Kerrie 0.8 mg Tablet 1 tab PO DAILY guaifenesin 400 mg Tablet 400 mg PO Q4H PRN (Reason: Congestion) hydrocodone-acetaminophen [[place]] 10-325 mg Tablet 1 - 2 tab PO .EVERY 4-6 HOURS MDD 8 tabs PRN (Reason: Pain) Tylenol PM Extra Strength 25-500 mg Tablet 2 tab PO BEDTIME melatonin 5 mg Tablet 10 mg PO BEDTIME Changed furosemide [Lasix] 80 mg Tablet 40 mg PO BID 30 Days Qty: 30 0RF Discharge Orders: Discharge Order (Routine); Ordered 05/20/23 Ordered By: Moisés Landon Referrals: Lovely Ivey MD [Primary Care Provider] - Discharge Diet: Cardiac Discharge Activity: Resume usual activity Patient Instructions: Dialysis Diet (DC), Hemodialysis (DC), Opioid Safety Discharge Attestations Time Spent in Discharge Care*: greater than 30 min Quality Metrics Clinical Quality Measures [ No reported AMI, CVA or VTE this stay] Coding Level of Care Code 34976 Total time (in minutes) for Discharge: 45 Diagnoses Community acquired pneumonia J18.9 COPD (chronic obstructive pulmonary disease) J44.1 COPD type: COPD with acute exacerbation Hypertension I10 Coronary artery disease I25.10 Atrial fibrillation, unspecified type I48.91 Hyperlipidemia E78.5 ESRD (end stage renal disease) N18.6 Frequent falls R29.6 Atrial fibrillation with RVR I48.91
--- NOTE | 2023-05-20 12:12 | PC.NURSE ---
Discharge Note Patient discharged to home via POV accompanied by spouse. Discharge instructions reviewed with patient and/or customer development representative. Mobile pharmacy medications and/or prescriptions provided. Belongings/home medications returned.
== END 2023-05-20 12:12 | disposition home or self-care (01) | DRG 193 ==
LOC: ER 17:40 → CSU 21:11
PROVIDERS: Hospitalist; Admitting Provider Family Medicine; Emergency Provider Family Medicine; PCP Family Medicine; Visit Provider Family Medicine
DX: J18.9 Pneumonia, unspecified organism (principal); N18.6 End stage renal disease; J44.0 Chronic obstructive pulmonary disease with (acute) lower respiratory infection; I13.2 Hypertensive heart and chronic kidney disease with heart failure and with stage 5 chronic kidney disease, or end stage renal disease; Z68.43 Body mass index [BMI] 50.0-59.9, adult; I50.9 Heart failure, unspecified; E66.01 Morbid (severe) obesity due to excess calories; I48.91 Unspecified atrial fibrillation; G47.33 Obstructive sleep apnea (adult) (pediatric); I25.10 Atherosclerotic heart disease of native coronary artery without angina pectoris; E78.5 Hyperlipidemia, unspecified; R29.6 Repeated falls; D63.1 Anemia in chronic kidney disease; G20.A1 Parkinson's disease without dyskinesia, without mention of fluctuations; I25.2 Old myocardial infarction; Z95.5 Presence of coronary angioplasty implant and graft; Z99.2 Dependence on renal dialysis; Z99.89 Dependence on other enabling machines and devices; Z99.81 Dependence on supplemental oxygen; Z79.82 Long term (current) use of aspirin; Z11.52 Encounter for screening for COVID-19; Z87.891 Personal history of nicotine dependence; Z87.440 Personal history of urinary (tract) infections; Z87.01 Personal history of pneumonia (recurrent)
CPT/HCPCS: 36415; 36600; 70450; 71045; 80051; 80053; 80061; 82330; 82805; 83036; 83605; 83735; 83880; 84100; 84145; 84443; 84484; 85025; 86140; 86706; 87040; 87070; 87205; 87340; 87486; 87581; 87633; 90935; 93005; 94640; 94660; 96365; 96372; 96376; 99291; C8929; C9113; J0456; J0696; J1644; J1956; J7050; J7626; Q9956

== ENCOUNTER → 2023-08-12 14:40 | Outpatient (BNVA) | payer OTHER, SELFPAY | PROVIDERS: PCP Family Medicine; Visit Provider Internal Medicine Pulmonary Disease | DX: Z09 Encounter for follow-up examination after completed treatment for conditions other than malignant neoplasm (principal); J44.1 Chronic obstructive pulmonary disease with (acute) exacerbation; F17.200 Nicotine dependence, unspecified, uncomplicated; Z95.5 Presence of coronary angioplasty implant and graft; I50.9 Heart failure, unspecified; I48.91 Unspecified atrial fibrillation; N18.6 End stage renal disease | CPT/HCPCS: 99214 ==

== ENCOUNTER 2023-08-25 10:39 | Inpatient (IN) | payer OTHER, SELFPAY ==
[2023-08-25] VITALS (17 sets, daily range): BP systolic 102–139; BP diastolic 50–74; PULSE 53–88; RESP 12–20; TEMP 36.4–36.8; O2SAT 91–96; BMI 47.4; BMI 48.4
--- NOTE | 2023-08-25 10:43 | CT_ITS ---
WS: [id number] CT HEAD TECHNIQUE: Noncontrast CT of the head obtained from the skullbase to the vertex. CLINICAL INFORMATION: fall COMPARISON: 05/18/2023 DLP: 2389.[address] scans at [facility] use at least one of these dose optimization techniques: automated e xposure control; mA and/or kV adjustment per patient size (includes targeted exams where dose is matc hed to clinical indication); or iterative reconstruction. FINDINGS: No evidence of intracranial hemorrhage or mass effect. Ventricular system and basal cisterns are mora nt. Mild small vessel changes with mild parenchymal volume loss. No extra-axial fluid collections. In tracranial vascular calcification. Mastoid air cells are well aerated. Mucosal thickening in the paranasal sinuses with a small amount o f fluid in the maxillary sinuses. Secretions RIGHT sphenoid sinus. Partially visualized similar-appea ring LEFT parotid nodules or intraparotid lymph nodes. IMPRESSION: 1. No evidence of intracranial hemorrhage or mass effect. 2. Mild small vessel changes. Mild parenchymal volume loss. 3. LEFT parotid nodules or intraparotid lymph nodes similar in appearance to 05/18/2023. This could followed up with the contrast-enhanced neck CT on an elective basis. 4. No acute intracranial findings.
--- NOTE | 2023-08-25 10:43 | CT_ITS ---
WS: [email or web address] CT THORACIC SPINE TECHNIQUE: Noncontrast CT of the thoracic spine with coronal and sagittal reformatted images. CLINICAL INFORMATION: fall COMPARISON: None. DLP: 3601.[address] scans at [facility] use at least one of these dose optimization techniques: automated e xposure control; mA and/or kV adjustment per patient size (includes targeted exams where dose is matc hed to clinical indication); or iterative reconstruction. FINDINGS: Mild thoracic curve. Mild thoracic kyphosis. Mild spondylitic changes with disc base narrowing in the mid and lower thoracic spine with vacuum disc phenomenon. Anterior hypertrophic changes. No high-gra de central canal stenosis. No acute appearing compression fractures. Slightly nodular thyroid partially visualized. Aortic calcification. Coronary calcification. Normal c aliber descending thoracic aorta. Adrenal glands are normal. Moderate chronic emphysematous changes. Subsegmental atelectasis in the lung bases. IMPRESSION: No acute thoracic spine findings.
--- NOTE | 2023-08-25 10:43 | CT_ITS ---
WS: [email or web address] CT LUMBAR SPINE TECHNIQUE: Noncontrast CT of the lumbar spine with coronal and sagittal reformatted images. CLINICAL INFORMATION: fall COMPARISON: None. DLP: 3601.[address] scans at [facility] use at least one of these dose optimization techniques: automated e xposure control; mA and/or kV adjustment per patient size (includes targeted exams where dose is matc hed to clinical indication); or iterative reconstruction. FINDINGS: Normal lumbar alignment. No acute compression. No visualized acute fractures. Normal partially visual ized pelvic bony structures. L1-L2: Mild facet arthropathy. Spinal canal and foramina are patent. L2-L3: Mild annular bulging. Mild facet arthropathy. Mild LEFT foraminal narrowing. L3-L4: Mild annular bulging. Slight narrowing of the LEFT subarticular recess. Mild facet arthropathy . Small bilateral foraminal protrusions with mild LEFT greater than RIGHT foraminal narrowing. L4-L5: Mild annular bulging. Mild central canal stenosis. Moderate facet arthropathy and ligamentum f lavum hypertrophy. Mild RIGHT foraminal narrowing. L5-S1: Moderate facet arthropathy. Spinal canal and foramen are patent. Visualized pelvic bony structures: Normal. Paravertebral soft tissues: Normal. Adrenal glands are normal. IMPRESSION: No acute traumatic lumbar spine findings.
--- NOTE | 2023-08-25 10:43 | CT_ITS ---
WS: [email or web address] CT CERVICAL TRAUMA TECHNIQUE: Noncontrast CT of the cervical spine with coronal and sagittal reformatted images. CLINICAL INFORMATION: fall COMPARISON: None. DLP: 2389.[address] scans at [facility] use at least one of these dose optimization techniques: automated e xposure control; mA and/or kV adjustment per patient size (includes targeted exams where dose is matc hed to clinical indication); or iterative reconstruction. FINDINGS: Straightening with reversal of the normal cervical lordosis. Slight anterolisthesis C2 on C3. Moderat e spondylitic changes. Chronic disc osteophyte complexes with mild central canal stenosis C3-C4 C4-C5 C5-C6 and C6-C7. Normal craniocervical junction. Normal C1-C2 articulation. Dens is normal in appearance. Normal occi pital condyles. Normal C1 ring. No evidence of acute fracture or dislocation. Carotid bulb calcificat ion. Normal prevertebral soft tissues. Mastoids air cells are well aerated. IMPRESSION: No evidence of acute fracture or dislocation.
--- NOTE | 2023-08-25 10:44 | W.ED.FALL ---
HPI - Fall General: Chief Complaint: Fall Stated Complaint: Fall Time Seen by Provider: 08/25/23 10:41 Source: EMS Mode of arrival: EMS Limitations: no limitations History of Present Illness: 68-year-old male has a history of A-fib he is also on dialysis he goes Wednesday states that he has had a slight tremor the last 2 to 3 weeks he walks with a walker states he is getting ready to go to dialysis this morning and and fell backwards. He states he did hit his head he is has a slight posterior headache along with neck and back pain. Denies any other injuries. Associated symptoms-after fall: Reports headache(s) and neck pain; Denies abdominal pain or chest pain Review of Systems Const: Denies: fever(s), chills, body aches or change in appetite ENMT: Denies: throat pain or dental pain Card: Denies: chest pain Resp: Denies: dyspnea GI: Denies: abdominal pain, nausea, vomiting or diarrhea Musc: Reports: neck pain and back pain Skin/Breast: Denies: rash Neuro: Reports: headache(s) PFSH ED PFSH: Medical History Volume overload Acute exacerbation of chronic obstructive airways disease Acute respiratory failure with hypoxemia End-stage renal disease (ESRD) ESRD (end stage renal disease) Septic shock Acute encephalopathy GI bleed Acute respiratory failure with hypoxia Hyperkalemia NSTEMI (non-ST elevated myocardial infarction) Rib fractures Kidney lesion Acute anemia Abnormal CT scan, kidney Legally blind NATHALY (obstructive sleep apnea) Nightly CPAP Hyperkalemia Sepsis EDWIN (acute kidney injury) Pneumonia Chest pain Atrial fibrillation CHF (congestive heart failure) COPD (chronic obstructive pulmonary disease) 2L Smoker Hyperlipidemia Hypertension History of type 2 diabetes mellitus Coronary artery disease UTI (urinary tract infection) Pyelonephritis of left kidney Surgical History History of heart artery stent Family History Mother Skin cancer (melanoma) Heart attack Social History Smoking and tobacco/nicotine status: former use of tobacco/nicotine Quit status (tobacco/nicotine): has quit using Year quit tobacco: August 2020 [id number] Second hand smoke exposure: Yes Alcohol intake: never Substance/Drug Use: never Caregiver/support person: Yes Lives independently: Yes Household members: significant other Marital status: service: Yes Current occupational status: retired and disabled Pets and animals: Yes Do you think of yourself as: Straight/Heterosexual Current gender identity: Male Physical Exam Const: COMMON NORMALS: no acute distress, patient oriented x3 and healthy appearing HENMT: COMMON NORMALS: normocephalic HEAD & SCALP: normocephalic OTHER: Posterior scalp tenderness Neck/C-Spine: COMMON NORMALS: full ROM and supple OTHER: Slight tenderness along cervical spine Chest: COMMONS NORMALS: normal inspection of the chest and normal palpation of entire chest wall Resp: COMMON NORMALS: normal respiratory effort Cardio: COMMON NORMALS: regular rate and No murmurs present (Cardio) RATE: regular rate Back/Pelvis: OTHER: Tenderness along T and L-spine no obvious deformity Extremity: COMMON NORMALS: normal to inspection and full ROM Neuro: COMMON NORMALS: patient oriented x3, moves all extremities and no focal motor deficits Psych: COMMON NORMALS: mental status grossly normal, Normal thought process present and cooperative THOUGHT PROCESS: Normal thought process present Skin: COMMON NORMALS: no rashes or lesions noted and no wounds GENERAL SKIN EXAM: no rashes or lesions noted Course Vital Signs: Vital signs: Vital Signs Temperature 98.2 F 08/25/23 10:44 Pulse Rate 69 08/25/23 12:00 Respiratory Rate 18 08/25/23 11:03 Blood Pressure 106/50 08/25/23 12:00 Pulse Oximetry 91 08/25/23 12:00 Oxygen Delivery Me thod Nasal Cannula 08/25/23 11:03 Oxygen Flow Rate 2 08/25/23 11:03 MDM - Fall Medical Decision Making Patient presents here with weakness along with a fall he states he is unable to really ambulate now due to his weakness has been going on for days. Patient states he is concerned due to him not been able to walk well that he is going to fall again blood work imaging here are normal did speak to hospitalist will admit Medical Records I reviewed the patient's medical records. Lab Data I reviewed the patient's lab results. 08/25/23 10:57 08/25/23 10:57 Laboratory Results WBC 12.06 10^3/uL (3.29-11.43) H 08/25/23 10:57 RBC 3.61 10^6/uL (3.85-5.65) L 08/25/23 10:57 Hgb 10.70 g/dL (11.27-16.99) L 08/25/23 10:57 Hct 35.4 % (37-53) L 08/25/23 10:57 MCV 98.1 fl (82-101) 08/25/23 10:57 MCH 29.6 pg (27-33) 08/25/23 10:57 MCHC 30.2 g/dL (30-55) 08/25/23 10:57 RDW 16.3 % (12.1-15.1) H 08/25/23 10:57 Plt Count 379 10^3/cmm (157-399) 08/25/23 10:57 MPV 10.6 fL (7.4-10.4) H 08/25/23 10:57 Neut % (Auto) 63.6 % 08/25/23 10:57 Lymph % (Auto) 19.5 % 08/25/23 10:57 [place] % (Auto) 12.9 % 08/25/23 10:57 Eos % (Auto) 3.5 % 08/25/23 10:57 Baso % (Auto) 0.2 % 08/25/23 10:57 Neut # (Auto) 7.67 10^3/uL (1.8-7.7) 08/25/23 10:57 Lymph # (Auto) 2.4 10^3/uL (0.8-4.8) 08/25/23 10:57 [place] # (Auto) 1.6 10^3/uL (0.2-0.9) H 08/25/23 10:57 Eos # (Auto) 0.4 10^3/uL (0.0-0.8) 08/25/23 10:57 Baso # (Auto) 0.0 10^3/uL (0.0-0.1) 08/25/23 10:57 Nucleated RBC % (auto) 0 % 08/25/23 10:57 Nucleated RBCs # 0.0 /100WBC 08/25/23 10:57 ESR 34 mm/hr (0-10) H 08/25/23 10:57 Sodium 138 mmol/L (136-145) 08/25/23 10:57 Potassium 4.6 mmol/L (3.5-5.1) 08/25/23 10:57 Chloride 94 mmol/L (98-107) L 08/25/23 10:57 Carbon Dioxide 30 mmol/L (22-29) H 08/25/23 10:57 Anion Gap 18.6 (5-19) 08/25/23 10:57 BUN 30 mg/dL (8-23) H 08/25/23 10:57 Creatinine 7.1 mg/dL (0.7-1.2) H* 08/25/23 10:57 GFR Calculation 7.7 mL/min (90-130) L 08/25/23 10:57 Glucose 105 mg/dL (65-115) 08/25/23 10:57 Calculated Osmolality 293 mOsm/kg (285-295) 08/25/23 10:57 Calcium 7.2 mg/dL (8.5-10.5) L 08/25/23 10:57 All radiology interpretation(s) finalized by discharge Discharge Plan Discharge Patient Disposition: Admitted As Inpatient Clinical Impression: Fall, Head injury, ESRD (end stage renal disease), Weakness Condition: Stable Discharge Diet: Advance as tolerated Discharge Activity: Resume usual activity Coding Level of Care Code ED 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
[2023-08-25 11:05] LABS: Basophils % 0.2 %; Eosinophils # 0.4 10^3/uL (0.0-0.8); Eosinophils % 3.5 %; Hematocrit 35.4 % (37-53); Lymphocytes # 2.4 10^3/uL (0.8-4.8); Lymphocytes % 19.5 %; Mean Corpuscular HGB Conc 30.2 g/dL (30-55); Mean Corpuscular Hemoglobin 29.6 pg (27-33); Mean Corpuscular Volume 98.1 fl (82-101); Mean Platelet Volume 10.6 fL (7.4-10.4); Monocytes # 1.6 10^3/uL (0.2-0.9); Monocytes % 12.9 %; Neutrophils # 7.67 10^3/uL (1.8-7.7); Neutrophils % 63.6 %; Nucleated Red Blood Cells % 0 %; Platelet Count 379 10^3/cmm (157-399); Red Blood Count 3.61 10^6/uL (3.85-5.65); Red Cell Distribution Width 16.3 % (12.1-15.1); White Blood Count 12.06 10^3/uL (3.29-11.43)
[2023-08-25 11:21] LABS: Anion Gap 18.6 (5-19); Blood Urea Nitrogen 30 mg/dL (8-23); Calcium 7.2 mg/dL (8.5-10.5); Carbon Dioxide 30 mmol/L (22-29); Chloride 94 mmol/L (98-107); Creatinine Clr Calc Pharmacy 14.8428; Glomerular Filtration Rate 7.7 mL/min (90-130); Glucose 105 mg/dL (65-115); Osmolality Calculated 293 mOsm/kg (285-295); Potassium 4.6 mmol/L (3.5-5.1); Sodium 138 mmol/L (136-145)
--- NOTE | 2023-08-25 12:25 | ECG_ITS ---
[facility] Test Date: 2023-08-25 Pat Name: Artie Quiles Department: Room: Gender: Male Clinical Trial Data Manager: : 1955 Requested By: Manoj Mendoza Order Number: [id number] José Antonio MD: Gadiel Kinsey M.D. Measurements Intervals [place] Rate: 61 P: 79 [place]: 244 QRS: 11 QRSD: 95 T: 55 QT: 433 QTc: 437 Interpretive Statements SINUS RHYTHM WITH FIRST DEGREE AV BLOCK LOW QRS VOLTAGE [QRS DEFLECTION < 0.5/1.0 mV IN LIMB/CHEST LEADS] Compared to ECG 05/17/2023 22:45:14 First degree AV block now present Atrial flutter no longer present Electronically Signed On 08-25-2023 23:55:25 CDT by Gadiel Kinsey M.D. [email or web address] [id number]
[2023-08-25 13:11] LABS: Erythrocyte Sedimentation Rate 34 mm/hr (0-10)
[2023-08-25 13:20] LABS: Ammonia 15 umol/L (16-60)
[2023-08-25 13:26] LABS: INR 1.18 (0.8-1.2)
[2023-08-25 13:31] LABS: Cortisol Random 6.29 ug/dL (2.47-19.5); Procalcitonin 0.21 ng/mL (0-0.5); Thyroid Stimulating Hormone 1.05 uIU/mL (0.27-4.20)
[2023-08-25 13:39] LABS: Folate Level 15.9 ng/mL (4.5-32.2)
--- NOTE | 2023-08-25 13:55 | P.HP_ITS ---
Providers/Chief Complaint 2 Primary Care Provider: Lovely Ivey MD Chief Complaint: Fall History of Present Illness Artie Quiles is a 68 year old male with a past medical history of end-stage renal disease on dialysis, atrial fibrillation not on anticoagulation due to history of GI bleed, Obstructive sleep apnea on CPAP, CAD, hypertension, hyperlipidemia, COPD, morbid obesity, who presents [facility] due to acute confusion. Currently patient is alert oriented x 3, follows all commands, he tells me and his tells me that for the last 48 hours he has had increased episodes of confusion, tells me that he has been talking to his dad father, that he has been trying to fix a car while he was sitting in a chair, he has been talking out of his head, increasingly confused, he has been feeling more tremulousness, increased tremor, he has been dropping things frequently with both hands for the last 2 days, he has had increased falls for the last 2 days, denies any fevers, no chills, no neck stiffness, he did have a fall this morning, that prompted them to come to the emergency room as he could not get off the ground, he missed his morning dialysis, currently does not complain of any neck pain, does report lower back pain, has a history of back pain, can follow all commands, does report loss of taste, does report over 30 pound weight loss in the last few months, does report decreased appetite, fatigue, malaise Review of Systems 2 Const: Reports: fatigue and malaise; Denies: fever(s) or chills Eyes: Denies: change in vision Card: Denies: chest pain Resp: Denies: dyspnea GI: Denies: abdominal pain : Denies: flank pain Medications/Allergies Home Medications Medication Instructions Recorded Confirmed Last Taken Type aspirin 81 mg tablet,delayed 81 mg PO DAILY 11/27/20 08/25/23 08/25/23 History release (Adult Low Dose Aspirin) atorvastatin 80 mg tablet 40 mg PO QPM 11/27/20 08/25/23 08/24/23 History docusate sodium 100 mg capsule 100 mg PO BID PRN Constipation 11/27/20 08/25/23 Unknown History nitroglycerin 0.4 mg sublingual 0.4 mg sublingual Q5M PRN Chest 11/27/20 08/25/23 Unknown History tablet Pain polyethylene glycol 3350 17 17 g PO DAILY PRN Constipation 11/27/20 08/25/23 Unknown History gram/dose oral powder pregabalin 150 mg capsule 150 mg PO BID 11/27/20 08/25/23 08/25/23 History inhalational spacing device (Allan #1 ea 05/20/21 08/25/23 Unknown Rx Aerosol [place] Enhancer spacer) ipratropium bromide 0.02 % 2.5 ml inhalation Q4H PRN 06/17/22 08/25/23 Unknown History solution for inhalation Shortness Of Breath Or Wheezing nebulizer accessories #1 ea 06/18/22 08/25/23 Unknown Rx albuterol sulfate 2.5 mg/3 mL 2.5 mg inhalation Q4H PRN 08/21/22 08/25/23 Unknown History (0.083 %) solution for nebulization Shortness Of Breath Or Wheezing ascorbic acid (vitamin C) 500 mg 1,000 mg PO DAILY 08/21/22 08/25/23 08/25/23 History tablet (Vitamin C) fluticasone propionate 50 1 spray intranasal DAILY 08/21/22 08/25/23 08/25/23 History mcg/actuation nasal spray,suspension lidocaine 5 % topical ointment 1 applic topical DAILY PRN Pain 08/21/22 08/25/23 Unknown History naloxone 4 mg/actuation nasal spray 4 mg intranasal Q3M PRN Opioid 08/21/22 08/25/23 Unknown History Overdose tamsulosin 0.4 mg capsule 0.8 mg PO QPM 08/21/22 08/25/23 08/24/23 History vit C 250 mg-vit E 90 mg-zinc 40 1 cap PO BID 08/21/22 08/25/23 08/25/23 History mg-copper 1 [id number] capsule (PreserVision AREDS-2) zinc gluconate 50 mg tablet 50 mg PO DAILY 08/21/22 08/25/23 08/25/23 History diltiazem HCl 240 mg 240 mg PO DAILY #60 tabs 08/27/22 08/25/23 08/25/23 Rx tablet,extended release 24 hr (Cardizem LA) budesonide-formoterol HFA 160 2 puff inhalation BID #10.2 grams 05/11/23 08/25/23 08/25/23 Rx mcg-4.5 mcg/actuation aerosol inhaler (Symbicort) calcium acetate 667 mg tablet 1,334 mg PO TID 05/11/23 08/25/23 08/25/23 History carboxymethylcellulose sodium 0.5 1 drp ophthalmic (eye) QID PRN Dry 05/11/23 08/25/23 Unknown History % eye drops (Refresh Tears) Eye(S) ipratropium 0.5 mg-albuterol 3 mg 3 ml inhalation Q4H PRN wheezing 05/11/23 08/25/23 Unknown Rx (2.5 mg base)/3 mL nebulization #90 mL soln loratadine 10 mg tablet (Allergy 10 mg PO DAILY 05/11/23 08/25/23 08/25/23 History Relief (loratadine)) lorazepam 0.5 mg tablet See Rx Instructions .Route .COMPLEX 05/11/23 08/25/23 Unknown History primidone 50 mg tablet 50 mg PO BID 05/11/23 08/25/23 08/25/23 History ropinirole 1 mg tablet 1 mg PO BEDTIME 05/11/23 08/25/23 08/24/23 History tiotropium bromide 18 mcg capsule 1 cap inhalation DAILY #60 05/11/23 08/25/23 08/25/23 Rx with inhalation device (Spiriva inhalations with HandiHaler) carbamide peroxide 6.5 % ear drops 4 drp otic (ear) Q30D PRN Ear Wax 05/18/23 08/25/23 Unknown History diphenhydramine 25 2 tab PO BEDTIME 05/18/23 08/25/23 08/24/23 History mg-acetaminophen 500 mg tablet (Tylenol PM Extra Strength) fluoxetine 20 mg capsule 60 mg PO QAM 05/18/23 08/25/23 08/25/23 History guaifenesin 400 mg tablet 400 mg PO Q4H PRN Congestion 05/18/23 08/25/23 Unknown History melatonin 5 mg tablet 10 mg PO BEDTIME 05/18/23 08/25/23 08/24/23 History nystatin 100,000 unit/mL oral 10 ml PO TID PRN unknown 05/18/23 08/25/23 Unknown History suspension omeprazole 40 mg capsule,delayed 40 mg PO QAM 05/18/23 08/25/23 08/25/23 History release polyvinyl alcohol 1.4 % eye drops 2 drp ophthalmic (eye) BID PRN Dry 05/18/23 08/25/23 Unknown History (Artificial Tears (polyvinyl Eyes alcohol)) vitamin B complex-vitamin C-folic 1 tab PO DAILY 05/18/23 08/25/23 08/25/23 History acid 0.8 mg tablet (Renal-Kerrie) furosemide 80 mg tablet (Lasix) 40 mg (1/2 x 80 mg) PO BID 30 days 05/20/23 08/25/23 08/25/23 Rx #30 tabs albuterol sulfate 90 mcg/actuation 1 inh inhalation QID PRN shortness 06/08/23 08/25/23 Unknown Rx aerosol inhaler (Ventolin HFA) of breath or wheezing #8.5 grams sodium chloride 3 % for 4 ml inhalation BID PRN congestion 07/15/23 08/25/23 08/24/23 Rx nebulization #240 mL acetaminophen 325 mg tablet 325 - 650 mg PO QID PRN Pain 08/25/23 08/25/23 Unknown History amiodarone 200 mg tablet 200 mg PO DAILY 08/25/23 08/25/23 08/25/23 History carbidopa 10 mg-levodopa 100 mg 0.5 tab PO BID 08/25/23 08/25/23 08/25/23 History tablet lisinopril 10 mg tablet 10 mg PO DAILY 08/25/23 08/25/23 08/25/23 History oxycodone 10 mg tablet 10 mg PO Q6H PRN Pain 08/25/23 08/25/23 Unknown History Allergies Allergy/AdvReac Type Severity Reaction Status Date / Time Iodinated Contrast Media Allergy Severe anaphylaxis Verified 08/25/23 13:53 PFSH Acute 2 PFSH: Medical History (Updated 08/25/23 @ 14:02 by Moisés Landon MD) Acute encephalopathy Volume overload Acute exacerbation of chronic obstructive airways disease Acute respiratory failure with hypoxemia End-stage renal disease (ESRD) ESRD (end stage renal disease) Septic shock GI bleed Acute respiratory failure with hypoxia Hyperkalemia NSTEMI (non-ST elevated myocardial infarction) Rib fractures Kidney lesion Acute anemia Abnormal CT scan, kidney Legally blind NATHALY (obstructive sleep apnea) Nightly CPAP Hyperkalemia Sepsis EDWIN (acute kidney injury) Pneumonia Chest pain Atrial fibrillation CHF (congestive heart failure) COPD (chronic obstructive pulmonary disease) 2L Smoker Hyperlipidemia Hypertension History of type 2 diabetes mellitus Coronary artery disease UTI (urinary tract infection) Pyelonephritis of left kidney Surgical History History of heart artery stent Family History Mother Skin cancer (melanoma) Heart attack Social History Smoking and tobacco/nicotine status: former use of tobacco/nicotine Quit status (tobacco/nicotine): has quit using Year quit tobacco: August 2020 [id number] Second hand smoke exposure: Yes Alcohol intake: never Substance/Drug Use: never Caregiver/support person: Yes Lives independently: Yes Household members: significant other Marital status: service: Yes Current occupational status: retired and disabled Pets and animals: Yes Do you think of yourself as: Straight/Heterosexual Current gender identity: Male Vitals/I&O/Wt Last Vital Signs Temp 98.2 F 08/25/23 10:44 Pulse 69 08/25/23 12:00 Resp 18 08/25/23 11:03 BP 106/50 08/25/23 12:00 Pulse Ox 91 08/25/23 12:00 O2 Del Method Nasal Cannula 08/25/23 11:03 O2 Flow Rate 2 08/25/23 11:03 Weight last 48 hrs Weight 154.221 kg Physical Exam 2 Const: COMMON NORMALS: no acute distress and patient oriented x3 HENMT: COMMON NORMALS: normocephalic HEAD & SCALP: normocephalic Eye: COMMON NORMALS: Equal, round and reactive pupils present and EOMs intact bilaterally Neck/C-Spine: COMMON NORMALS: no JVD OTHER: Kernig sign negative, Brudzinski sign negative Lymph: LYMPHATIC: no lymphadenopathy noted Resp: COMMON NORMALS: normal respiratory effort, No retractions, No use of accessory muscles and clear to auscultation bilaterally AUSCULTATION: clear to auscultation bilaterally Cardio: COMMON NORMALS: regular rate, regular rhythm, S1 normal heart sound present and S2 normal heart sound present RATE: regular rate RHYTHM: r egular rhythm HEART SOUNDS: S1 normal heart sound present and S2 normal heart sound present GI: COMMON NORMALS: Normal to inspection, nondistended, normoactive bowel sounds present, Soft to palpation and non-tender : COMMON NORMALS: Yes no CVA tenderness Extremity: COMMON NORMALS: no calf tenderness and no pedal edema Neuro: COMMON NORMALS: patient oriented x3, CN's II-XII intact bilaterally, moves all extremities and no focal motor deficits Psych: COMMON NORMALS: mental status grossly normal Data 08/25/23 10:57 08/25/23 10:57 A&P Assessment and plan (1) Acute encephalopathy: (2) Legally blind: (3) ESRD (end stage renal disease): (4) Hypertension: (5) Coronary artery disease: (6) Atrial fibrillation: (7) Hyperlipidemia: (8) NATHALY (obstructive sleep apnea): (9) Fall: Plan Acute encephalopathy ? Head CT within normal limits, ? White blood cell count 12,000 ? No significant electrolyte abnormalities except elevated creatinine ? Plan ?ABG to check for pCO2 patient has a history of hypercarbia with his COPD ? Neurochecks, aspiration precautions, NIH stroke scale ? Ammonia levels, TSH, B12, folic acid, cortisol levels, CPK, troponin series, Pro-Nathan, CRP, blood cultures, sed rate ? Full code ? Lovenox for DVT prophylaxis Fall ? Cervical spine CT no acute findings -Thoracic spine CT no acute findings -Lumbar CT no acute findings Resume home CPAP Atrial fibrillation, not exacerbation, telemetry monitoring History of tremors, on Primodine, levodopa carbidopa PT OT Attestations 2 Medical Necessity Statement*: Patient requires hospitalization, inpatient, greater than 2 midnights, for acute encephalopathy, falls, increased tremulousness, Diagnoses Acute encephalopathy G93.40 Legally blind H54.8 ESRD (end stage renal disease) N18.6 Hypertension I10 Coronary artery disease I25.10 Atrial fibrillation, unspecified type I48.91 Hyperlipidemia E78.5 NATHALY (obstructive sleep apnea) G47.33 Fall W19.XXXA
[2023-08-25 14:12] LABS: ABG PH Result 7.32 (7.35-7.45); Base Excess ABG 3.5 mmol/L (-2.0-2.0); Blood Gas Allen Test Pos; Blood Gas Operator Identificat CAK; Blood Gas Sample Site Radial, left; Blood Gas Sample Type Arterial; HCO3 ABG 30.6 mmol/L (22-26); Oxygen Device NC; PO2 ABG 74.3 mmHg (80.0-100.0); PO2 FiO2 Ratio Arterial Blood 0
[2023-08-25 14:39] LABS: Alanine Aminotransferase < 5 U/L (0-41); Albumin Level 3.6 g/dL (3.5-5.2); Alkaline Phosphatase 163 U/L (40-130); Aspartate Amino Transferase 18 U/L (0-40); Creatine Phosphokinase 89 U/L (39-308); Ferritin 413 ng/mL (30-400); Globulin 2.9 g/dL (1.3-4.6); Total Bilirubin 0.3 mg/dL (0.15-1.2); Total Protein 6.5 g/dL (6.6-8.7)
[2023-08-25 14:41] LABS: Lactic Sepsis W/Reflex 0.7 mmol/L (0.5-2.2); Troponin(5th) Baseline 90 ng/L (0-15)
[2023-08-25 14:43] LABS: Ionized Calcium 0.9 mmol/L (1.1-1.4)
[2023-08-25 14:53] LABS: Vitamin B12 756 pg/mL (232-1245)
[2023-08-25 15:17] LABS: Troponin 5 2HR 86.94 ng/L (0-15)
[2023-08-25 15:18] LABS: Troponin 5 2HR Delta -3.06 ABS# (0-10)
--- NOTE | 2023-08-25 15:45 | ECG_ITS ---
[facility] Test Date: 2023-08-25 Pat Name: Artie Quiles Department: Room: 273 Gender: Male Experience Design Director: : 1955 Requested By: Moisés Landon Order Number: [id number] José Antonio MD: Gadiel Kinsey M.D. Measurements Intervals [place] Rate: 61 P: 43 [place]: 245 QRS: -3 QRSD: 109 T: 55 QT: 455 QTc: 460 Interpretive Statements Possible SINUS RHYTHM WITH FIRST DEGREE AV BLOCK LOW QRS VOLTAGE [QRS DEFLECTION < 0.5/1.0 mV IN LIMB/CHEST LEADS] Compared to ECG 08/25/2023 13:03:43 No significant changes Baseline artifact, need to repeat Electronically Signed On 08-26-2023 0:06:40 CDT by Gadiel Kinsey M.D. [id number]
--- NOTE | 2023-08-25 15:50 | P.CONIM_ITS ---
Providers/Reason For Consult 2 Consulting Physician/Specialty*: kommana/nephrology Reason for Consult*: End-stage renal disease Attending Physician: Moisés Landon MD Primary Care Provider: Lovely Ivey MD History of Present Illness History of Present Illness Artie Quiles is a 68 year old male Patient is a 68-year-old male with past medical history of A-fib, end-stage renal disease on dialysis per Wednesday schedule, hyperlipidemia, coronary artery disease, hypertension, COPD, morbid obesity presented to the [facility] due to altered mental status. Patient is due for his dialysis today. CTs and head was unremarkable. Patient also suffered a fall at home. Lab data was significant for hemoglobin of 10.7 potassium 4.6. Review of Systems 2 Narrative: negative Medications/Allergies Home Medications Medication Instructions Recorded Confirmed Last Taken Type aspirin 81 mg tablet,delayed 81 mg PO DAILY 11/27/20 08/25/23 08/25/23 History release (Adult Low Dose Aspirin) atorvastatin 80 mg tablet 40 mg PO QPM 11/27/20 08/25/23 08/24/23 History docusate sodium 100 mg capsule 100 mg PO BID PRN Constipation 11/27/20 08/25/23 Unknown History nitroglycerin 0.4 mg sublingual 0.4 mg sublingual Q5M PRN Chest 11/27/20 08/25/23 Unknown History tablet Pain polyethylene glycol 3350 17 17 g PO DAILY PRN Constipation 11/27/20 08/25/23 Unknown History gram/dose oral powder pregabalin 150 mg capsule 150 mg PO BID 11/27/20 08/25/23 08/25/23 History inhalational spacing device (Allan #1 ea 05/20/21 08/25/23 Unknown Rx Aerosol Gallia Enhancer spacer) ipratropium bromide 0.02 % 2.5 ml inhalation Q4H PRN 06/17/22 08/25/23 Unknown History solution for inhalation Shortness Of Breath Or Wheezing nebulizer accessories #1 ea 06/18/22 08/25/23 Unknown Rx albuterol sulfate 2.5 mg/3 mL 2.5 mg inhalation Q4H PRN 08/21/22 08/25/23 Unknown History (0.083 %) solution for nebulization Shortness Of Breath Or Wheezing ascorbic acid (vitamin C) 500 mg 1,000 mg PO DAILY 08/21/22 08/25/23 08/25/23 History tablet (Vitamin C) fluticasone propionate 50 1 spray intranasal DAILY 08/21/22 08/25/23 08/25/23 History mcg/actuation nasal spray,suspension lidocaine 5 % topical ointment 1 applic topical DAILY PRN Pain 08/21/22 08/25/23 Unknown History naloxone 4 mg/actuation nasal spray 4 mg intranasal Q3M PRN Opioid 08/21/22 08/25/23 Unknown History Overdose tamsulosin 0.4 mg capsule 0.8 mg PO QPM 08/21/22 08/25/23 08/24/23 History vit C 250 mg-vit E 90 mg-zinc 40 1 cap PO BID 08/21/22 08/25/23 08/25/23 History mg-copper 1 lb-vljjyv-[id number] capsule (PreserVision AREDS-2) zinc gluconate 50 mg tablet 50 mg PO DAILY 08/21/22 08/25/23 08/25/23 History diltiazem HCl 240 mg 240 mg PO DAILY #60 tabs 08/27/22 08/25/23 08/25/23 Rx tablet,extended release 24 hr (Cardizem LA) budesonide-formoterol HFA 160 2 puff inhalation BID #10.2 grams 05/11/23 08/25/23 08/25/23 Rx mcg-4.5 mcg/actuation aerosol inhaler (Symbicort) calcium acetate 667 mg tablet 1,334 mg PO TID 05/11/23 08/25/23 08/25/23 History carboxymethylcellulose sodium 0.5 1 drp ophthalmic (eye) QID PRN Dry 05/11/23 08/25/23 Unknown History % eye drops (Refresh Tears) Eye(S) ipratropium 0.5 mg-albuterol 3 mg 3 ml inhalation Q4H PRN wheezing 05/11/23 08/25/23 Unknown Rx (2.5 mg base)/3 mL nebulization #90 mL soln loratadine 10 mg tablet (Allergy 10 mg PO DAILY 05/11/23 08/25/23 08/25/23 History Relief (loratadine)) lorazepam 0.5 mg tablet See Rx Instructions .Route .COMPLEX 05/11/23 08/25/23 Unknown History primidone 50 mg tablet 50 mg PO BID 05/11/23 08/25/23 08/25/23 History ropinirole 1 mg tablet 1 mg PO BEDTIME 05/11/23 08/25/23 08/24/23 History tiotropium bromide 18 mcg capsule 1 cap inhalation DAILY #60 05/11/23 08/25/23 08/25/23 Rx with inhalation device (Spiriva inhalations with HandiHaler) carbamide peroxide 6.5 % ear drops 4 drp otic (ear) Q30D PRN Ear Wax 05/18/23 08/25/23 Unknown History diphenhydramine 25 2 tab PO BEDTIME 05/18/23 08/25/23 08/24/23 History mg-acetaminophen 500 mg tablet (Tylenol PM Extra Strength) fluoxetine 20 mg capsule 60 mg PO QAM 05/18/23 08/25/23 08/25/23 History guaifenesin 400 mg tablet 400 mg PO Q4H PRN Congestion 05/18/23 08/25/23 Unknown History melatonin 5 mg tablet 10 mg PO BEDTIME 05/18/23 08/25/23 08/24/23 History nystatin 100,000 unit/mL oral 10 ml PO TID PRN unknown 05/18/23 08/25/23 Unknown History suspension omeprazole 40 mg capsule,delayed 40 mg PO QAM 05/18/23 08/25/23 08/25/23 History release polyvinyl alcohol 1.4 % eye drops 2 drp ophthalmic (eye) BID PRN Dry 05/18/23 08/25/23 Unknown History (Artificial Tears (polyvinyl Eyes alcohol)) vitamin B complex-vitamin C-folic 1 tab PO DAILY 05/18/23 08/25/23 08/25/23 History acid 0.8 mg tablet (Renal-Kerrie) furosemide 80 mg tablet (Lasix) 40 mg (1/2 x 80 mg) PO BID 30 days 05/20/23 08/25/23 08/25/23 Rx #30 tabs albuterol sulfate 90 mcg/actuation 1 inh inhalation QID PRN shortness 06/08/23 08/25/23 Unknown Rx aerosol inhaler (Ventolin HFA) of breath or wheezing #8.5 grams sodium chloride 3 % for 4 ml inhalation BID PRN congestion 0208/25/23 08/24/23 Rx nebulization #240 mL acetaminophen 325 mg tablet 325 - 650 mg PO QID PRN Pain 08/25/23 08/25/23 Unknown History amiodarone 200 mg tablet 200 mg PO DAILY 08/25/23 08/25/23 08/25/23 History carbidopa 10 mg-levodopa 100 mg 0.5 tab PO BID 08/25/23 08/25/23 08/25/23 History tablet lisinopril 10 mg tablet 10 mg PO DAILY 08/25/23 08/25/23 08/25/23 History oxycodone 10 mg tablet 10 mg PO Q6H PRN Pain 08/25/23 08/25/23 Unknown History Allergies Allergy/AdvReac Type Severity Reaction Status Date / Time Iodinated Contrast Media Allergy Severe anaphylaxis Verified 08/25/23 13:53 PFSH Acute 2 PFSH: Medical History (Updated 08/25/23 @ 14:02 by Moisés Landon MD) Acute encephalopathy Volume overload Acute exacerbation of chronic obstructive airways disease Acute respiratory failure with hypoxemia End-stage renal disease (ESRD) ESRD (end stage renal disease) Septic shock GI bleed Acute respiratory failure with hypoxia Hyperkalemia NSTEMI (non-ST elevated myocardial infarction) Rib fractures Kidney lesion Acute anemia Abnormal CT scan, kidney Legally blind NATHALY (obstructive sleep apnea) Nightly CPAP Hyperkalemia Sepsis EDWIN (acute kidney injury) Pneumonia Chest pain Atrial fibrillation CHF (congestive heart failure) COPD (chronic obstructive pulmonary disease) 2L Smoker Hyperlipidemia Hypertension History of type 2 diabetes mellitus Coronary artery disease UTI (urinary tract infection) Pyelonephritis of left kidney Surgical History History of heart artery stent Family History Mother Skin cancer (melanoma) Heart attack Social History Smoking and tobacco/nicotine status: former use of tobacco/nicotine Quit status (tobacco/nicotine): has quit using Year quit tobacco: August 2020 [id number] Second hand smoke exposure: Yes Alcohol intake: never Substance/Drug Use: never Caregiver/support person: Yes Lives independently: Yes Household members: significant other Marital status: service: Yes Current occupational status: retired and disabled Pets and animals: Yes Do you think of yourself as: Straight/Heterosexual Current gender identity: Male Vitals/I&O/Wt Last Vital Signs Temp 98.2 F 08/25/23 10:44 Pulse 59 L 08/25/23 14:00 Resp 18 08/25/23 14:00 BP 139/74 08/25/23 14:00 Pulse Ox 93 08/25/23 14:00 O2 Del Method Nasal Cannula 08/25/23 11:03 O2 Flow Rate 2 08/25/23 11:03 Weight last 48 hrs Weight 154.221 kg Physical Exam 2 Narrative: awake , alert no distress no edema on 4L O2 Data 08/26/23 05:22 08/26/23 05:22 A&P Assessment and plan (1) ESRD (end stage renal disease): Plan 1. End-stage renal disease: On MWF schedule as patient outpatient, HD today 2. metabolic encephalopathy 3. Acute on chronic respiratory failure: Secondary to sleep apnea COPD, now has pneumonia 4. History of A-fib 5. aNEMIA : RENATE with HD Patient evaluated using audiovisual cart. Time spent 20 minutes. Consult Attestations 2 Medical Necessity Statement: PER MANUEL Coding Level of Care Code Acute Code for Chg Fwd Diagnoses ESRD (end stage renal disease) N18.6
[2023-08-25 16:07] LABS: Hepatitis B Surface Antigen Non-Reactive (Nonreactive)
--- NOTE | 2023-08-25 16:35 | PC.HD ---
Heparin 1000 units loading dose administered at 1620 via HD catheter per house carpenter's orders. Upon examination of catheter site, dressing was noted to only be affixed to chest along the top, with the bottom and sides of the dressing loose. Also noted was an EKG pad which was placed under the loose dressing, alongside the catheter insertion site. Pad removed, area cleansed thoroughly with Chloraprep, triple antibiotic ointment applied to catheter insertion site, and new dressing applied. No s/s of infection noted.
[2023-08-25] MEDS: epoetin alfa 1000 Unit/0.05 mL (ESRD) 20000 UNIT IVP (19:07)
[2023-08-25 19:47] LABS: Adenovirus Not Detected (NOT DETECT); Chlamydia Pneumoniae Not Detected (NOT DETECT); Coronavirus 229E,HKU1,NL63,OC4 Not Detected (NOT DETECT); Human Metapneumovirus Not Detected (NOT DETECT); Human Rhinovirus/Enterovirus Not Detected (NOT DETECT); Influenza A Not Detected (NOT DETECT); Influenza A H1 Not Detected (NOT DETECT); Influenza A H1-2009 Not Detected (NOT DETECT); Influenza A H3 Not Detected (NOT DETECT); Influenza B Not Detected (NOT DETECT); Mycoplasma Pneumoniae Not Detected (NOT DETECT); Parainfluenza Virus Type 1 Not Detected (NOT DETECT); Parainfluenza Virus Type 2 Not Detected (NOT DETECT); Parainfluenza Virus Type 3 Not Detected (NOT DETECT); Parainfluenza Virus Type 4 Not Detected (NOT DETECT); Respiratory Syncytial Virus A Not Detected (NOT DETECT); Respiratory Syncytial Virus B Not Detected (NOT DETECT); SARS-COV-2 Not Detected (NOT DETECT)
[2023-08-25 20:18] LABS: Troponin 5 6HR 89.34 ng/L (0-15); Troponin 5 6HR Delta -0.66 ng/L (0-12)
[2023-08-25] MEDS: atorvastatin 40 mg Tablet PO (20:20)
[2023-08-25] MEDS: pregabalin 150 mg Capsule PO (20:20)
[2023-08-25] MEDS: ropinirole 1 mg Tablet PO (20:20)
[2023-08-25] MEDS: calcium acetate 667 mg Capsule 1334 MG PO (20:20)
[2023-08-25] MEDS: primidone 50 mg Tablet PO (20:20)
[2023-08-25] MEDS: FUROsemide 40 mg Tablet PO (20:21)
[2023-08-25] MEDS: oxyCODONE 5 mg IR Tab/Cap 10 MG PO (20:21)
[2023-08-25] MEDS: enoxaparin 40 mg/0.4 mL Syringe SUBCUT (20:31)
[2023-08-25] MEDS: albuterol 2.5 mg/3 mL Neb INHALATION (20:36)
[2023-08-26] VITALS (18 sets, daily range): BP systolic 105–136; BP diastolic 51–68; PULSE 60–90; RESP 14–22; TEMP 36.5–36.8; O2SAT 88–97
[2023-08-26] MEDS: oxyCODONE 5 mg IR Tab/Cap 10 MG PO (03:20)
[2023-08-26] MEDS: pantoprazole DR 40 mg Tablet PO (05:04)
[2023-08-26] MEDS: fluoxetine 20 mg Capsule 60 MG PO (05:04)
[2023-08-26 05:35] LABS: Basophils % 0.3 %; Eosinophils # 0.4 10^3/uL (0.0-0.8); Eosinophils % 3.4 %; Hematocrit 35.5 % (37-53); Lymphocytes # 2.3 10^3/uL (0.8-4.8); Lymphocytes % 20.1 %; Mean Corpuscular HGB Conc 29.9 g/dL (30-55); Mean Corpuscular Hemoglobin 28.8 pg (27-33); Mean Corpuscular Volume 96.5 fl (82-101); Mean Platelet Volume 10.4 fL (7.4-10.4); Monocytes # 1.2 10^3/uL (0.2-0.9); Monocytes % 10.7 %; Nucleated Red Blood Cells % 0 %; Platelet Count 361 10^3/cmm (157-399); Red Blood Count 3.68 10^6/uL (3.85-5.65); Red Cell Distribution Width 16.1 % (12.1-15.1); White Blood Count 11.52 10^3/uL (3.29-11.43)
[2023-08-26 05:54] LABS: Estmated Average Glucose 117; Hemoglobin A1C 5.7 % (4.0-6.0)
[2023-08-26 05:55] LABS: Alanine Aminotransferase < 5 U/L (0-41); Albumin Level 3.5 g/dL (3.5-5.2); Alkaline Phosphatase 167 U/L (40-130); Aspartate Amino Transferase 22 U/L (0-40); Blood Urea Nitrogen 21 mg/dL (8-23); Carbon Dioxide 28 mmol/L (22-29); Chloride 94 mmol/L (98-107); Creatinine Clr Calc Pharmacy 17.6174; Globulin 3.8 g/dL (1.3-4.6); Glomerular Filtration Rate 9.2 mL/min (90-130); Glucose 107 mg/dL (65-115); Osmolality Calculated 285 mOsm/kg (285-295); Sodium 136 mmol/L (136-145); Total Bilirubin 0.3 mg/dL (0.15-1.2); Total Protein 7.3 g/dL (6.6-8.7)
[2023-08-26 05:57] LABS: Lactic Sepsis W/Reflex 0.6 mmol/L (0.5-2.2)
[2023-08-26 06:07] LABS: Chol HDL Ratio 2.97 mg/dL (1.0-5.00); Cholesterol 101 mg/dL (0-200); HDL Cholesterol 34 mg/dL (60-100); LDL Cholesterol Calculated 45 mg/dL (50-129); LDL HDL Ratio 1.32 RATIO (0.00-3.22); NT Pro B Type Natriuretic Pept 2073 pg/mL (0-125); Triglycerides 111 mg/dL (0-150)
[2023-08-26] MEDS: albuterol 2.5 mg/3 mL Neb INHALATION ×3 (08:25→20:17)
[2023-08-26] MEDS: aspirin 81 mg EC Tablet PO (09:05)
[2023-08-26] MEDS: primidone 50 mg Tablet PO ×2 (09:05→17:49)
[2023-08-26] MEDS: tamsulosin 0.4 mg Capsule 0.800000000000000044 MG PO (09:05)
[2023-08-26] MEDS: FUROsemide 40 mg Tablet PO ×2 (09:05→17:49)
[2023-08-26] MEDS: calcium acetate 667 mg Capsule 1334 MG PO ×3 (09:05→21:12)
[2023-08-26] MEDS: ascorbic acid 500 mg Tablet 1000 MG PO (09:05)
[2023-08-26] MEDS: pregabalin 150 mg Capsule PO ×2 (09:06→17:48)
[2023-08-26] MEDS: dilTIAZem ER (24HR) 240 mg Capsule PO (09:06)
[2023-08-26] MEDS: b-complex-vitamin c Tablet 1 EACH PO (09:06)
[2023-08-26] MEDS: lisinopril 10 mg Tablet PO (09:06)
[2023-08-26 09:41] LABS: C Reactive Protein 112.7 mg/L (0.0-4.9)
--- NOTE | 2023-08-26 10:20 | P.PN_ITS ---
Subjective 2 Subjective: no sob Medications: Reviewed: Yes Vitals/I&O/Wt Last Vital Signs Temp 97.9 F 08/26/23 07:40 Pulse 84 08/26/23 08:32 Resp 18 08/26/23 08:32 BP 119/66 08/26/23 07:40 Pulse Ox 92 08/26/23 08:32 O2 Del Method Nasal Cannula 08/26/23 08:32 O2 Flow Rate 4 08/26/23 08:32 08/25/23 08/26/23 08/26/23 22:59 06:59 14:59 Intake Total 540 / 540 240 / 240 Output Total 3300 / 3300 Balance -2760 / -2760 240 / 240 Weight last 48 hrs Weight 160.118 kg Weight 159.5 kg Weight 157.652 kg Weight 154.221 kg Physical Exam 2 Narrative: awake , alert no distress no edema on 4L O2 Data 08/26/23 05:22 08/26/23 05:22 Micro: Microbiology 08/26/23 09:29 Blood Culture - Preliminary Blood SPECIMEN COLLECTED 08/26/23 09:32 Blood Culture - Preliminary Blood SPECIMEN COLLECTED A&P Assessment and plan (1) ESRD (end stage renal disease): Plan 1. End-stage renal disease: On [facility] schedule as patient outpatient, s/p HD yesterday and next HD tomorrow 2. metabolic encephalopathy 3. Acute on chronic respiratory failure: Secondary to sleep apnea COPD, now has pneumonia 4. History of A-fib 5. aNEMIA : RENATE with HD Patient evaluated using audiovisual cart. Time spent 20 minutes. Attestations 2 Medical Necessity Statement*: per lauren Coding Level of Care Code Acute Code for Chg Fwd Diagnoses ESRD (end stage renal disease) N18.6
--- NOTE | 2023-08-26 11:54 | CT_ITS ---
WS: [id number] CT CHEST, ABDOMEN, AND PELVIS TECHNIQUE: Noncontrast CT of the chest, abdomen, and pelvis with coronal and sagittal reformatted azucena ges. CLINICAL INFORMATION: leukocytosis, elevated crp, weight loss, hallucinations COMPARISON: CT 08/20/2022 DLP: 1475.[address] scans at [facility] use at least one of these dose optimization techniques: automated e xposure control; mA and/or kV adjustment per patient size (includes targeted exams where dose is matc hed to clinical indication); or iterative reconstruction. CT CHEST: Shallow inspiration. Cardiomegaly. Moderate chronic emphysematous changes. Slight bibasal atelectasis . No focal consolidation or pleural fluid. Subsegmental atelectasis in the lingula. Normal caliber thoracic aorta. Coronary calcification. A few prominent RIGHT paratracheal lymph nodes . These are nonspecific but likely reactive. No axillary lymphadenopathy. Tiny pericardial effusion o r thickening. Chronic LEFT rib fractures with callus formation. CT ABDOMEN AND PELVIS: Small esophageal hiatal hernia. A few low-attenuation lesions in the liver likely hepatic cysts appea r stable compared to 08/20/2022. Normal gallbladder. Fatty atrophy of the pancreas. Splenic granulomas . Adrenal glands are normal. Normal caliber abdominal aorta with moderate calcification. Moderate julien nosis at the celiac and SMA origins. Adrenal glands are normal. Bilateral renal cortical atrophy. No hydronephrosis. Tiny LEFT renal cyst. No abdominal lymphadenopathy. Fat-containing umbilical hernia. Sigmoid diverticulosis. Slight thickening of the mid sigmoid colon w ith trace surrounding induration can be seen with early or mild acute diverticulitis. Recommend corre lation with infectious symptoms. No evidence of high-grade small or large bowel obstruction. No free fluid in the abdomen or pelvis. N o other acute findings0 IMPRESSION: 1. Subsegmental atelectasis in the lung bases and lingula. 2. Sigmoid diverticulosis with slight thickening of the sigmoid colon and minimal induration can be seen with early or mild diverticulitis. This may be incidental. 3. Tiny pericardial effusion or thickening. 4. A few hepatic cysts unchanged 5. Small esophageal hernia. 6. No other acute findings.
--- NOTE | 2023-08-26 11:54 | MR_ITS ---
WS: [id number] MRI BRAIN WITHOUT CONTRAST HISTORY: hallucinations COMPARISON: 03/16/2023 TECHNIQUE: Diffusion imaging, multiplanar T1, T2 and FLAIR imaging obtained. Quality is significantly compromised by motion. No evidence for acute infarct or hemorrhage. Hemphill-white matter differentiation is normal. Mild atrophy and mild small vessel ischemic disease. No prior large territory infarct No hemorrhage identified taking into consideration the amount of motion artifact. Ventricles and extra-axial spaces are normal. No inferior displacement of cerebellar tonsils. The sella turcica and pituitary gland are unremarkabl e. Dural venous sinuses and [place] demonstrate no abnormality on this unenhanced studies. Paranasal sinuses: Mucoperiosteal thickening maxillary sinuses. Mastoid air cells: Normal. Calvarium and scalp: Intact. IMPRESSION: 1. No acute infarct identified. 2. No area of hemorrhage. 3. Study quality compromised by motion artifact.
[2023-08-26] MEDS: LORazepam 2 mg/mL INJ 10 mL MDV 1 MG IVP ×2 (12:53→12:55)
--- NOTE | 2023-08-26 15:48 | P.PN_ITS ---
Subjective 2 Subjective: Patient was seen this morning, I spoke to patient, and to his over the phone while examining patient, this morning, patient had an episode of confusion in which nursing staff tell me that when the nursing staff walked into the room, patient thought that that the nurse had a dog with her, currently he is alert oriented x 3, following all commands his biggest complaint is his severe tremors of his upper extremities, his is concerned about him having persistent confusion, he denies any fevers, no chills does have a cough, no abdominal pain, does not urinate with his end-stage renal disease no back pain, we discussed his elevated white count and a CRP will do CT chest abdomen pelvis, given his persistent encephalopathy which is intermittent, will do an MRI of his brain, he is agreeable, but tells me that he is very claustrophobic Vitals/I&O/Wt Last Vital Signs Temp 98.0 F 08/26/23 10:51 Pulse 82 08/26/23 15:02 Resp 16 08/26/23 15:02 BP 109/51 08/26/23 10:51 Pulse Ox 89 L 08/26/23 15:02 O2 Del Method Nasal Cannula 08/26/23 15:02 O2 Flow Rate 4 08/26/23 15:02 08/26/23 08/26/23 08/26/23 06:59 14:59 22:59 Intake Total 480 / 480 Balance 480 / 480 Weight last 48 hrs Weight 160.118 kg Weight 159.5 kg Weight 157.652 kg Weight 154.221 kg Physical Exam 2 Const: COMMON NORMALS: no acute distress and patient oriented x3 Resp: COMMON NORMALS: normal respiratory effort, No retractions and No use of accessory muscles AUSCULTATION: wheezes Cardio: COMMON NORMALS: regular rate, regular rhythm, S1 normal heart sound present and S2 normal heart sound present RATE: regular rate RHYTHM: r egular rhythm HEART SOUNDS: S1 normal heart sound present and S2 normal heart sound present GI: COMMON NORMALS: Normal to inspection, nondistended, normoactive bowel sounds present and non-tender Extremity: COMMON NORMALS: no pedal edema Neuro: COMMON NORMALS: patient oriented x3 Psych: COMMON NORMALS: mental status grossly normal Data 08/26/23 05:22 08/26/23 05:22 Micro: Microbiology 08/26/23 09:29 Blood Culture - Preliminary Blood SPECIMEN COLLECTED 08/26/23 09:32 Blood Culture - Preliminary Blood SPECIMEN COLLECTED A&P Assessment and plan (1) Acute encephalopathy: (2) Legally blind: (3) ESRD (end stage renal disease): (4) Hypertension: (5) Coronary artery disease: (6) Atrial fibrillation: (7) Hyperlipidemia: (8) NATHALY (obstructive sleep apnea): (9) Fall: Plan Acute encephalopathy ? Head CT within normal limits, ? White blood cell count 12,000 ? No significant electrolyte abnormalities except elevated creatinine ? Plan ?ABG to check for pCO2, mildly elevated start BiPAP tonight ? Neurochecks, aspiration precautions, NIH stroke scale ? Brain MRI ? Full code ? Lovenox for DVT prophylaxis Leukocytosis with elevated CRP, ? CT chest abdomen pelvis ? Will consider antibiotics based on clinical progress Fall ? Cervical spine CT no acute findings -Thoracic spine CT no acute findings -Lumbar CT no acute findings Resume home BIPAP Atrial fibrillation, not exacerbation, telemetry monitoring History of tremors, on Primodine, levodopa carbidopa PT OT Plan for today CT chest abdomen pelvis, MRI of the brain, PT OT will consider antibiotics consider further workup based on clinical progress, BiPAP tonight due to elevated pCO2 Attestations 2 Medical Necessity Statement*: Patient requires hospitalization for acute encephalopathy, tremors, weakness, Diagnoses Acute encephalopathy G93.40 Legally blind H54.8 ESRD (end stage renal disease) N18.6 Hypertension I10 Coronary artery disease I25.10 Atrial fibrillation, unspecified type I48.91 Hyperlipidemia E78.5 NATHALY (obstructive sleep apnea) G47.33 Fall W19.XXXA
[2023-08-26] MEDS: cefTRIAXone 1,000 MG in sodium chloride 0.9% (plus) 50 ML 100 MG IV (16:26)
[2023-08-26] MEDS: azithromycin 500 MG in sodium chloride 0.9% 250 ML 250 MG IV (17:43)
[2023-08-26] MEDS: atorvastatin 40 mg Tablet PO (17:49)
--- NOTE | 2023-08-26 18:57 | PC.NURSE ---
Patient has been very tired and has slept today. Bipap has been on patient most of this afternoon. Patient is very grumpy and thinks we are yelling when asking questions. Respiratory was up to check on him several times. Patient took medications without complications.
[2023-08-26] MEDS: enoxaparin 30 mg/0.3 mL Syringe SUBCUT (21:12)
[2023-08-26] MEDS: ropinirole 1 mg Tablet PO (21:12)
[2023-08-27] VITALS (19 sets, daily range): BP systolic 107–134; BP diastolic 52–65; PULSE 61–71; RESP 15–21; TEMP 36.6–37; O2SAT 90–97
[2023-08-27 00:34] LABS: ABG PCO2 64.7 mmHg (35-45); ABG PH Result 7.25 (7.35-7.45); Alveolar-Arterial Oxygen Gradi 18.1 mmHg (5-10); Arterial Blood Gas Hematocrit 32.5 % (42-52); Base Excess ABG 0.3 mmol/L (-2.0-2.0); Blood Gas Allen Test Pos; Blood Gas Sample Site Radial, right; Blood Gas Sample Type Arterial; Carboxyhemoglobin 1.4 %THgb (0.4-20.1); HCO3 ABG 28.5 mmol/L (22-26); HGB O2 Sat 90.7 % (95-100); Methemoglobin 0.5 % (0.4-1.5); Oxygen Device BIPAP; Oxygen Saturation ABG 92.5; PO2 ABG 69.4 mmHg (80.0-100.0); PO2 FiO2 Ratio Arterial Blood 0; Potassium Level - ABG 4.2 mmol/L (3.5-5.0); Total Hemoglobin 10.6 g/dL (14-18)
[2023-08-27 05:10] LABS: Basophils % 0.2 %; Eosinophils # 0.3 10^3/uL (0.0-0.8); Eosinophils % 2.5 %; Hematocrit 33.5 % (37-53); Lymphocytes # 2.6 10^3/uL (0.8-4.8); Mean Corpuscular HGB Conc 30.4 g/dL (30-55); Mean Corpuscular Hemoglobin 29.7 pg (27-33); Mean Corpuscular Volume 97.4 fl (82-101); Mean Platelet Volume 10.6 fL (7.4-10.4); Monocytes # 1.3 10^3/uL (0.2-0.9); Monocytes % 9.8 %; Neutrophils # 8.69 10^3/uL (1.8-7.7); Nucleated Red Blood Cells % 0 %; Platelet Count 365 10^3/cmm (157-399); Red Blood Count 3.44 10^6/uL (3.85-5.65); Red Cell Distribution Width 15.9 % (12.1-15.1); White Blood Count 12.98 10^3/uL (3.29-11.43)
[2023-08-27 05:38] LABS: Alanine Aminotransferase < 5 U/L (0-41); Albumin Level 3.3 g/dL (3.5-5.2); Alkaline Phosphatase 149 U/L (40-130); Anion Gap 20.4 (5-19); Aspartate Amino Transferase 39 U/L (0-40); Blood Urea Nitrogen 30 mg/dL (8-23); Calcium 7.7 mg/dL (8.5-10.5); Carbon Dioxide 26 mmol/L (22-29); Chloride 97 mmol/L (98-107); Creatinine Clr Calc Pharmacy 13.2848; Globulin 3.6 g/dL (1.3-4.6); Glomerular Filtration Rate 6.7 mL/min (90-130); Glucose 95 mg/dL (65-115); Magnesium 2.1 mg/dL (1.7-2.3); Osmolality Calculated 294 mOsm/kg (285-295); Potassium 4.4 mmol/L (3.5-5.1); Sodium 139 mmol/L (136-145); Total Bilirubin 0.3 mg/dL (0.15-1.2); Total Protein 6.9 g/dL (6.6-8.7)
[2023-08-27 05:56] LABS: Phosphorus 7.7 mg/dL (2.5-4.5)
[2023-08-27] MEDS: fluoxetine 20 mg Capsule 60 MG PO (06:15)
[2023-08-27] MEDS: pantoprazole DR 40 mg Tablet PO (06:15)
--- NOTE | 2023-08-27 06:59 | P.PN_ITS ---
Subjective 2 Subjective: no new complaints Medications: Reviewed: Yes Vitals/I&O/Wt Last Vital Signs Temp 97.8 F 08/27/23 04:29 Pulse 66 08/27/23 06:00 Resp 18 08/27/23 04:29 BP 111/58 08/27/23 04:29 Pulse Ox 94 08/27/23 04:30 O2 Del Method BiPAP 08/27/23 04:29 O2 Flow Rate 5 08/26/23 20:00 FiO2 40 08/27/23 04:30 08/26/23 08/26/23 08/27/23 14:59 22:59 06:59 Intake Total 480 / 480 300 / 780 Output Total 0 / 0 0 / 0 Balance 480 / 480 300 / 780 0 / 780 Weight last 48 hrs Weight 156.489 kg Weight 160.118 kg Weight 159.5 kg Weight 157.652 kg Weight 154.221 kg Physical Exam 2 Narrative: awake , alert no distress no edema on 4L O2 Data 08/27/23 04:51 08/27/23 04:51 Micro: Microbiology 08/26/23 09:29 Blood Culture - Preliminary Blood SPECIMEN COLLECTED 08/26/23 09:32 Blood Culture - Preliminary Blood SPECIMEN COLLECTED A&P Assessment and plan (1) ESRD (end stage renal disease): Plan 1. End-stage renal disease: On MWF schedule as patient outpatient, HD today 2. metabolic encephalopathy, 3. Acute on chronic respiratory failure: Secondary to sleep apnea COPD, now has pneumonia 4. History of A-fib 5. aNEMIA : RENATE with HD Patient evaluated using audiovisual cart. Time spent 20 minutes. Attestations 2 Medical Necessity Statement*: per medicine Coding Level of Care Code Acute Code for Chg Fwd Diagnoses ESRD (end stage renal disease) N18.6
--- NOTE | 2023-08-27 08:46 | PC.HD ---
Heparin 1000 units loading dose administered via venous port of HD catheter at 0835 per model artists''s orders.
[2023-08-27] MEDS: epoetin alfa 1000 Unit/0.05 mL (ESRD) 20000 UNIT SUBCUT (11:25)
[2023-08-27 12:02] LABS: ABG PCO2 54.3 mmHg (35-45); ABG PH Result 7.31 (7.35-7.45); Base Excess ABG 0.2 mmol/L (-2.0-2.0); Blood Gas Allen Test Pos; Blood Gas Operator Identificat CAK; Blood Gas Sample Site Radial, left; Blood Gas Sample Type Arterial; HCO3 ABG 27.3 mmol/L (22-26); Oxygen Device NC; PO2 ABG 62.4 mmHg (80.0-100.0); PO2 FiO2 Ratio Arterial Blood 0
--- NOTE | 2023-08-27 12:40 | PC.SOCIAL ---
IMM Update pg 2 of IMM updated and reviewed w/ patient. Copy provided and copy dated, initialed and placed in chart.
--- NOTE | 2023-08-27 13:38 | P.PN_ITS ---
Subjective 2 Subjective: Patient was seen this morning, currently receiving dialysis, he is alert to person, to place, not to time, he is quite drowsy, he denies any chest pain, we discussed his pneumonia, he does report a cough, no fevers overnight, is quite encephalopathic at times this morning, patient's ABG shows hypercarbic respiratory failure, instructed respiratory therapy to place patient back on BiPAP and repeat ABG in 2 hours to ensure hypercarbia has improved, Vitals/I&O/Wt Last Vital Signs Temp 98.6 F 08/27/23 11:56 Pulse 71 08/27/23 11:56 Resp 18 08/27/23 11:56 BP 124/63 08/27/23 11:56 Pulse Ox 93 08/27/23 11:09 O2 Del Method BiPAP 08/27/23 04:29 O2 Flow Rate 5 08/26/23 20:00 FiO2 40 08/27/23 11:09 08/26/23 08/27/23 08/27/23 22:59 06:59 14:59 Intake Total 300 / 780 760 / 760 Output Total 0 / 0 0 / 0 3400 / 3400 Balance 300 / 780 0 / 780 -2640 / -2640 Weight last 48 hrs Weight 153.5 kg Weight 156.489 kg Weight 160.118 kg Weight 159.5 kg Weight 157.652 kg Physical Exam 2 Const: COMMON NORMALS: no acute distress and patient oriented x3 Resp: COMMON NORMALS: normal respiratory effort, No retractions, No use of accessory muscles and clear to auscultation bilaterally AUSCULTATION: clear to auscultation bilaterally Cardio: COMMON NORMALS: regular rate, regular rhythm, S1 normal heart sound present and S2 normal heart sound present RATE: regular rate RHYTHM: r egular rhythm HEART SOUNDS: S1 normal heart sound present and S2 normal heart sound present GI: COMMON NORMALS: Normal to inspection, nondistended, normoactive bowel sounds present and non-tender Extremity: COMMON NORMALS: no pedal edema Neuro: COMMON NORMALS: patient oriented x3 Psych: COMMON NORMALS: mental status grossly normal Data 08/27/23 04:51 08/27/23 04:51 Micro: Microbiology 08/26/23 09:32 Blood Culture - Preliminary Blood NEGATIVE TO DATE 08/26/23 09:29 Blood Culture - Preliminary Blood NEGATIVE TO DATE A&P Assessment and plan (1) Acute encephalopathy: (2) Legally blind: (3) ESRD (end stage renal disease): (4) Hypertension: (5) Coronary artery disease: (6) Atrial fibrillation: (7) Hyperlipidemia: (8) NATHALY (obstructive sleep apnea): (9) Fall: (10) Pneumonia: (11) Hypercapnic respiratory failure: (12) Physical deconditioning: Plan Acute encephalopathy ? Head CT within normal limits, MRI within normal limits ? White blood cell count 12,000 ? No significant electrolyte abnormalities except elevated creatinine -Likely component of hypercarbia, pneumonia ? Plan ? ABG this morning shows evidence of hypercarbia, continue BiPAP this morning ? Neurochecks, aspiration precautions, NIH stroke scale ? Brain MRI within normal limits ? Full code ? Lovenox for DVT prophylaxis Hypercarbic respiratory failure?spoke to respiratory therapy, placed on BiPAP, antibiotics as below Pneumonia, chest x-ray showing subsegmental atelectasis lung bases, lingula -With elevated white count, and CRP likely the evidence pneumonia Plan -Sputum culture, blood cultures -Continue Rocephin, azithromycin Leukocytosis with elevated CRP, ? CT chest abdomen pelvis ? Will consider antibiotics based on clinical progress Fall ? Cervical spine CT no acute findings -Thoracic spine CT no acute findings -Lumbar CT no acute findings Resume home BIPAP Atrial fibrillation, not exacerbation, telemetry monitoring History of tremors, on Primodine, levodopa carbidopa PT OT Physical deconditioning Plan for today BiPAP therapy repeat ABG, continue IV antibiotics Attestations 2 Medical Necessity Statement*: Patient requires hospitalization for pneumonia, hypercarbia, encephalopathy Diagnoses Acute encephalopathy G93.40 Legally blind H54.8 ESRD (end stage renal disease) N18.6 Hypertension I10 Coronary artery disease I25.10 Atrial fibrillation, unspecified type I48.91 Hyperlipidemia E78.5 NATHALY (obstructive sleep apnea) G47.33 Fall W19.XXXA Pneumonia J18.9 Hypercapnic respiratory failure J96.92 Physical deconditioning R53.81
[2023-08-27] MEDS: ascorbic acid 500 mg Tablet 1000 MG PO (13:39)
[2023-08-27] MEDS: oxyCODONE 5 mg IR Tab/Cap 10 MG PO (13:39)
[2023-08-27] MEDS: b-complex-vitamin c Tablet 1 EACH PO (13:40)
[2023-08-27] MEDS: lisinopril 10 mg Tablet PO (13:40)
[2023-08-27] MEDS: tamsulosin 0.4 mg Capsule 0.800000000000000044 MG PO (13:40)
[2023-08-27] MEDS: FUROsemide 40 mg Tablet PO ×2 (13:41→17:26)
[2023-08-27] MEDS: pregabalin 150 mg Capsule PO ×2 (13:41→17:25)
[2023-08-27] MEDS: dilTIAZem ER (24HR) 240 mg Capsule PO (13:41)
[2023-08-27] MEDS: primidone 50 mg Tablet PO ×2 (13:41→17:25)
[2023-08-27] MEDS: calcium acetate 667 mg Capsule 1334 MG PO ×3 (13:41→20:32)
[2023-08-27] MEDS: albuterol 2.5 mg/3 mL Neb INHALATION ×2 (14:03→20:41)
[2023-08-27] MEDS: cefTRIAXone 1,000 MG in sodium chloride 0.9% (plus) 50 ML 100 MG IV (15:29)
[2023-08-27] MEDS: atorvastatin 40 mg Tablet PO (17:25)
[2023-08-27] MEDS: azithromycin 500 MG in sodium chloride 0.9% 250 ML 250 MG IV (17:26)
[2023-08-27] MEDS: enoxaparin 30 mg/0.3 mL Syringe SUBCUT (20:32)
[2023-08-27] MEDS: ropinirole 1 mg Tablet PO (20:32)
[2023-08-28] VITALS (12 sets, daily range): BP systolic 102–134; BP diastolic 50–64; PULSE 60–95; RESP 14–23; TEMP 36.4–36.9; O2SAT 90–100
[2023-08-28 02:48] LABS: Basophils # 0.1 10^3/uL (0.0-0.1); Basophils % 0.3 %; Eosinophils # 0.4 10^3/uL (0.0-0.8); Eosinophils % 2.3 %; Hematocrit 34.9 % (37-53); Lymphocytes # 3.7 10^3/uL (0.8-4.8); Lymphocytes % 23.4 %; Mean Corpuscular HGB Conc 29.8 g/dL (30-55); Mean Corpuscular Hemoglobin 29.2 pg (27-33); Monocytes # 1.8 10^3/uL (0.2-0.9); Neutrophils # 9.98 10^3/uL (1.8-7.7); Neutrophils % 62.4 %; Nucleated Red Blood Cells % 0.2 %; Platelet Count 392 10^3/cmm (157-399); Red Blood Count 3.56 10^6/uL (3.85-5.65); Red Cell Distribution Width 16.1 % (12.1-15.1); White Blood Count 15.98 10^3/uL (3.29-11.43)
[2023-08-28 03:12] LABS: Alanine Aminotransferase < 5 U/L (0-41); Albumin Level 3.5 g/dL (3.5-5.2); Alkaline Phosphatase 168 U/L (40-130); Anion Gap 18.1 (5-19); Aspartate Amino Transferase 34 U/L (0-40); Blood Urea Nitrogen 23 mg/dL (8-23); Calcium 8.4 mg/dL (8.5-10.5); Carbon Dioxide 27 mmol/L (22-29); Chloride 96 mmol/L (98-107); Globulin 3.9 g/dL (1.3-4.6); Glomerular Filtration Rate 8.2 mL/min (90-130); Glucose 91 mg/dL (65-115); Magnesium 2.1 mg/dL (1.7-2.3); Osmolality Calculated 287 mOsm/kg (285-295); Phosphorus 5.7 mg/dL (2.5-4.5); Potassium 4.1 mmol/L (3.5-5.1); Sodium 137 mmol/L (136-145); Total Bilirubin 0.2 mg/dL (0.15-1.2); Total Protein 7.4 g/dL (6.6-8.7)
[2023-08-28 03:19] LABS: Creatinine Clr Calc Pharmacy 15.6865
[2023-08-28] MEDS: pantoprazole DR 40 mg Tablet PO (06:11)
[2023-08-28] MEDS: fluoxetine 20 mg Capsule 60 MG PO (06:11)
[2023-08-28] MEDS: ondansetron 2 mg/ML SDV 2 mL 4 MG IVP (08:45)
[2023-08-28] MEDS: pregabalin 150 mg Capsule PO (09:02)
[2023-08-28] MEDS: calcium acetate 667 mg Capsule 1334 MG PO ×2 (09:02→14:20)
[2023-08-28] MEDS: ascorbic acid 500 mg Tablet 1000 MG PO (09:02)
[2023-08-28] MEDS: lisinopril 10 mg Tablet PO (09:03)
[2023-08-28] MEDS: tamsulosin 0.4 mg Capsule 0.800000000000000044 MG PO (09:03)
[2023-08-28] MEDS: aspirin 81 mg EC Tablet PO (09:03)
[2023-08-28] MEDS: b-complex-vitamin c Tablet 1 EACH PO (09:03)
[2023-08-28] MEDS: FUROsemide 40 mg Tablet PO ×2 (09:04→18:31)
[2023-08-28] MEDS: primidone 50 mg Tablet PO (09:04)
[2023-08-28] MEDS: dilTIAZem ER (24HR) 240 mg Capsule PO (09:04)
--- NOTE | 2023-08-28 13:37 | P.PN_ITS ---
Subjective 2 Subjective: Patient was seen this morning, he is alert to person, to place, not to time, he does, quite drowsy during my conversations, son is at bedside, no resting tremor, no tremor at rest, but he tells me that whenever he raises his arms and he shows me that his tremor significantly worsens, we discussed potentially weaning him off some of his medications that could be leading to his weakness, his tremulousness such as the Lyrica he is on a very high dose 150 mg twice daily we can cut it in half to see how he tolerates that the other 1 is primodine he is not exactly sure why he takes his medication, does report visual hallucinations last night, reports seeing things that are not there, reports seeing his father does report feeling down depressed and sad, denies any active suicidal ideation, but does report some fleeting suicidal thoughts, no plan, no homicidal ideation Vitals/I&O/Wt Last Vital Signs Temp 98.0 F 08/28/23 11:14 Pulse 60 08/28/23 12:00 Resp 17 08/28/23 11:14 BP 114/50 08/28/23 11:14 Pulse Ox 98 08/28/23 12:00 O2 Del Method BiPAP 08/28/23 11:14 O2 Flow Rate 3 08/28/23 08:00 FiO2 40 08/28/23 12:00 08/27/23 08/28/23 08/28/23 22:59 06:59 14:59 Intake Total 660 / 1660 240 / 1900 360 / 360 Output Total 0 / 0 Balance 660 / -1740 240 / -1500 360 / 360 Weight last 48 hrs Weight 155.219 kg Weight 153.5 kg Weight 156.489 kg Physical Exam 2 Const: COMMON NORMALS: no acute distress ORIENTATION/CONSCIOUSNESS: Yes awake, Yes oriented to person and Yes oriented to place; not oriented to time Resp: COMMON NORMALS: normal respiratory effort, No retractions, No use of accessory muscles and clear to auscultation bilaterally AUSCULTATION: clear to auscultation bilaterally Cardio: COMMON NORMALS: regular rate, regular rhythm, S1 normal heart sound present and S2 normal heart sound present RATE: regular rate RHYTHM: r egular rhythm HEART SOUNDS: S1 normal heart sound present and S2 normal heart sound present GI: COMMON NORMALS: Normal to inspection, nondistended, normoactive bowel sounds present and non-tender Extremity: COMMON NORMALS: no pedal edema Neuro: SENSORIUM/ORIENTATION: Yes oriented to person, Yes oriented to place and No oriented to time Psych: COMMON NORMALS: mental status grossly normal Data 08/28/23 01:58 08/28/23 01:58 Micro: Microbiology 08/26/23 09:32 Blood Culture - Preliminary Blood NEGATIVE TO DATE 08/26/23 09:29 Blood Culture - Preliminary Blood NEGATIVE TO DATE A&P Assessment and plan (1) Acute encephalopathy: (2) Legally blind: (3) ESRD (end stage renal disease): (4) Hypertension: (5) Coronary artery disease: (6) Atrial fibrillation: (7) Hyperlipidemia: (8) NATHALY (obstructive sleep apnea): (9) Fall: (10) Pneumonia: (11) Hypercapnic respiratory failure: (12) Physical deconditioning: Plan Acute encephalopathy ? Head CT within normal limits, MRI within normal limits ? White blood cell count 15,000 ? No significant electrolyte abnormalities except elevated creatinine -Likely component of hypercarbia, pneumonia, depression anxiety, possible polypharmacy ? Plan ?Continue BiPAP schedule during the night, as needed during the day ? Neurochecks, aspiration precautions, NIH stroke scale ?Due to concerns for polypharmacy admitted decrease his Lyrica dose to 75 mg twice daily, and his primary dose to 25 mg p.o. twice daily, his was concerned that levodopa carbidopa could be a cause, I have also decreased his dose in half ? Full code ? Lovenox for DVT prophylaxis Hypercarbic respiratory failure?spoke to respiratory therapy, placed on BiPAP, antibiotics as below Pneumonia, chest x-ray showing subsegmental atelectasis lung bases, lingula -With elevated white count, and CRP likely the evidence pneumonia Plan -Sputum culture, blood cultures -Given persistently elevated WBC count, will start vancomycin, meropenem Leukocytosis with elevated CRP, ? CT chest abdomen pelvis ? Will consider antibiotics based on clinical progress Fall ? Cervical spine CT no acute findings -Thoracic spine CT no acute findings -Lumbar CT no acute findings Resume home BIPAP Atrial fibrillation, not exacerbation, telemetry monitoring History of tremors, on Primodine, levodopa carbidopa PT OT Physical deconditioning Plan for today BiPAP therapy repeat ABG, continue IV antibiotics Attestations 2 Medical Necessity Statement*: Patient requires hospitalization for acute encephalopathy, pneumonia, polypharmacy Diagnoses Acute encephalopathy G93.40 Legally blind H54.8 ESRD (end stage renal disease) N18.6 Hypertension I10 Coronary artery disease I25.10 Atrial fibrillation, unspecified type I48.91 Hyperlipidemia E78.5 NATHALY (obstructive sleep apnea) G47.33 Fall W19.XXXA Pneumonia J18.9 Hypercapnic respiratory failure J96.92 Physical deconditioning R53.81
[2023-08-28] MEDS: albuterol 2.5 mg/3 mL Neb INHALATION ×2 (14:02→20:23)
[2023-08-28] MEDS: vancomycin 1,500 MG/300 ML PIGGYBACK 200 MG IV (14:19)
[2023-08-28 14:45] LABS: Erythrocyte Sedimentation Rate 50 mm/hr (0-10); Procalcitonin 1.08 ng/mL (0-0.5)
[2023-08-28] MEDS: oxyCODONE 5 mg IR Tab/Cap 10 MG PO (16:32)
[2023-08-28] MEDS: meropenem 500 MG in sodium chloride 0.9% (plus) 50 ML 100 MG IV (16:33)
--- NOTE | 2023-08-28 18:00 | P.PN_ITS ---
Subjective 2 Subjective: on BIPAP Medications: Reviewed: Yes Vitals/I&O/Wt Last Vital Signs Temp 98.0 F 08/28/23 11:14 Pulse 67 08/28/23 14:06 Resp 16 08/28/23 16:32 BP 114/50 08/28/23 11:14 Pulse Ox 95 08/28/23 14:06 O2 Del Method BiPAP 08/28/23 14:06 O2 Flow Rate 28 08/28/23 14:06 FiO2 40 08/28/23 12:00 08/28/23 08/28/23 08/28/23 06:59 14:59 22:59 Intake Total 240 / 1900 360 / 360 660 / 1020 Output Total 0 / 0 Balance 240 / -1500 360 / 360 660 / 1020 Weight last 48 hrs Weight 155.219 kg Weight 153.5 kg Weight 156.489 kg Physical Exam 2 Narrative: awake , alert no distress no edema on 4L O2 Data 08/28/23 01:58 08/28/23 01:58 A&P Assessment and plan (1) ESRD (end stage renal disease): Plan 1. End-stage renal disease: On [facility] schedule as patient outpatient,s/p HD yesterday , next HD wednesday 2. metabolic encephalopathy, 3. Acute on chronic respiratory failure: Secondary to sleep apnea COPD, now has pneumonia 4. History of A-fib 5. aNEMIA : RENATE with HD Patient evaluated using audiovisual cart. Time spent 20 minutes. Attestations 2 Medical Necessity Statement*: per lauren Coding Level of Care Code Acute Code for Chg Fwd Diagnoses ESRD (end stage renal disease) N18.6
[2023-08-28] MEDS: atorvastatin 40 mg Tablet PO (18:31)
[2023-08-28] MEDS: primidone 50 mg Tablet 25 MG PO (18:32)
[2023-08-28] MEDS: enoxaparin 30 mg/0.3 mL Syringe SUBCUT (20:26)
--- NOTE | 2023-08-28 21:57 | PC.NURSE ---
This nurse went to the room with MARC Newton to reposition the patient and administer medications. This nurse and Lamar attempted to wake the patient and turn him, to which he became agitated, aggressive, and tried to rip his BIPAP mask off. This nurse attempted to stop the patient and reattach pieces of the mask so that the patient could continue receiving oxygen and the patient then began hitting and cussing at this nurse. This nurse backed away from the patient and attempted to verbally de-escalate. This nurse then offered the patient his pills, the patient agreed and then threw the pills on the bed after they were given to him. He then began yelling again, stating You're treating me like an animal, I'm not an animal!! This nurse then stated she would come back when the patient was ready to have a respectful conversation. Ensured call light in reach and room safe before leaving the room.
[2023-08-29] VITALS (16 sets, daily range): BP systolic 98–131; BP diastolic 56–70; PULSE 54–68; RESP 16–22; TEMP 36.4–36.6; O2SAT 90–98
[2023-08-29 02:42] LABS: Basophils # 0.1 10^3/uL (0.0-0.1); Basophils % 0.3 %; Eosinophils # 0.4 10^3/uL (0.0-0.8); Eosinophils % 2.2 %; Lymphocytes # 3.3 10^3/uL (0.8-4.8); Lymphocytes % 19.6 %; Mean Corpuscular Hemoglobin 29.1 pg (27-33); Mean Platelet Volume 10.9 fL (7.4-10.4); Monocytes # 1.7 10^3/uL (0.2-0.9); Monocytes % 9.9 %; Neutrophils # 11.28 10^3/uL (1.8-7.7); Neutrophils % 67.6 %; Nucleated Red Blood Cells # 0.1 /100WBC; Nucleated Red Blood Cells % 0.4 %; Platelet Count 406 10^3/cmm (157-399); Red Blood Count 3.61 10^6/uL (3.85-5.65); Red Cell Distribution Width 15.9 % (12.1-15.1)
[2023-08-29 03:07] LABS: Alanine Aminotransferase 7 U/L (0-41); Albumin Level 3.4 g/dL (3.5-5.2); Alkaline Phosphatase 211 U/L (40-130); Anion Gap 20.5 (5-19); Aspartate Amino Transferase 44 U/L (0-40); Blood Urea Nitrogen 32 mg/dL (8-23); C Reactive Protein 114.7 mg/L (0.0-4.9); Calcium 8.5 mg/dL (8.5-10.5); Carbon Dioxide 26 mmol/L (22-29); Chloride 96 mmol/L (98-107); Creatinine Clr Calc Pharmacy 12.0202; Glucose 98 mg/dL (65-115); Magnesium 2.1 mg/dL (1.7-2.3); Osmolality Calculated 293 mOsm/kg (285-295); Phosphorus 5.9 mg/dL (2.5-4.5); Potassium 4.5 mmol/L (3.5-5.1); Sodium 138 mmol/L (136-145); Total Bilirubin 0.3 mg/dL (0.15-1.2); Total Protein 7.4 g/dL (6.6-8.7)
[2023-08-29 03:08] LABS: Ammonia 23 umol/L (16-60)
[2023-08-29 03:16] LABS: Procalcitonin 0.88 ng/mL (0-0.5)
[2023-08-29] MEDS: meropenem 500 MG in sodium chloride 0.9% (plus) 50 ML 100 MG IV ×2 (03:48→16:07)
[2023-08-29] MEDS: pregabalin 75 mg Capsule PO ×2 (08:30→17:33)
[2023-08-29] MEDS: ascorbic acid 500 mg Tablet 1000 MG PO (08:31)
[2023-08-29] MEDS: dilTIAZem ER (24HR) 240 mg Capsule PO (08:31)
[2023-08-29] MEDS: tamsulosin 0.4 mg Capsule 0.800000000000000044 MG PO (08:31)
[2023-08-29] MEDS: oxyCODONE 5 mg IR Tab/Cap 10 MG PO ×2 (08:31→13:56)
[2023-08-29] MEDS: primidone 50 mg Tablet 25 MG PO ×2 (08:31→17:33)
[2023-08-29] MEDS: pantoprazole DR 40 mg Tablet PO (08:31)
[2023-08-29] MEDS: calcium acetate 667 mg Capsule 1334 MG PO ×3 (08:31→21:55)
[2023-08-29] MEDS: b-complex-vitamin c Tablet 1 EACH PO (08:32)
[2023-08-29] MEDS: lisinopril 10 mg Tablet PO (08:32)
[2023-08-29] MEDS: FUROsemide 40 mg Tablet PO ×2 (08:32→17:34)
[2023-08-29] MEDS: aspirin 81 mg EC Tablet PO (08:32)
[2023-08-29] MEDS: fluoxetine 20 mg Capsule 60 MG PO (08:32)
[2023-08-29] MEDS: albuterol 2.5 mg/3 mL Neb INHALATION ×3 (09:15→20:52)
--- NOTE | 2023-08-29 12:07 | P.PN_ITS ---
Subjective 2 Subjective: Patient was seen this morning, patient's son is at bedside afebrile overnight normotensive, he is alert to person, to place, not to time less somnolent, more awake, we had a detailed discussion about the possibility of polypharmacy as an etiology behind his episodes of confusion, I have cut down his dose of Lyrica in half, cut down his dose of Primatene in half, and limited amiodarone cut down his dose of levodopa carbidopa in half, he is agreeable, he denies seeing or hearing things that are not there today Vitals/I&O/Wt Last Vital Signs Temp 97.5 F L 08/29/23 11:05 Pulse 64 08/29/23 11:05 Resp 18 08/29/23 11:05 BP 112/62 08/29/23 11:05 Pulse Ox 94 08/29/23 11:05 O2 Del Method Nasal Cannula 08/29/23 11:05 O2 Flow Rate 2.5 08/29/23 08:00 FiO2 40 08/29/23 03:07 08/28/23 08/29/23 08/29/23 22:59 06:59 14:59 Intake Total 710 / 1070 50 / 1120 240 / 240 Balance 710 / 1070 50 / 1120 240 / 240 Weight last 48 hrs Weight 148.835 kg Weight 155.219 kg Physical Exam 2 Const: COMMON NORMALS: no acute distress ORIENTATION/CONSCIOUSNESS: Yes awake, Yes oriented to person and Yes oriented to place; not oriented to time Resp: COMMON NORMALS: normal respiratory effort, No retractions, No use of accessory muscles and clear to auscultation bilaterally AUSCULTATION: clear to auscultation bilaterally Cardio: COMMON NORMALS: regular rate, regular rhythm, S1 normal heart sound present and S2 normal heart sound present RATE: regular rate RHYTHM: r egular rhythm HEART SOUNDS: S1 normal heart sound present and S2 normal heart sound present GI: COMMON NORMALS: Normal to inspection, nondistended, normoactive bowel sounds present and non-tender Neuro: SENSORIUM/ORIENTATION: Yes oriented to person, Yes oriented to place and No oriented to time Psych: COMMON NORMALS: mental status grossly normal Data 08/29/23 02:06 08/29/23 02:06 A&P Assessment and plan (1) Acute encephalopathy: (2) Legally blind: (3) ESRD (end stage renal disease): (4) Hypertension: (5) Coronary artery disease: (6) Atrial fibrillation: (7) Hyperlipidemia: (8) NATHALY (obstructive sleep apnea): (9) Fall: (10) Pneumonia: (11) Hypercapnic respiratory failure: (12) Physical deconditioning: Plan Acute encephalopathy ? Head CT within normal limits, MRI within normal limits ? White blood cell count 16.7, Pro-Nathan 0.88, CRP 114.7, sed rate 50 ? No significant electrolyte abnormalities except elevated creatinine -Likely component of hypercarbia, pneumonia, depression anxiety, possible polypharmacy ? Plan ?Continue BiPAP schedule during the night, as needed during the day ? Neurochecks, aspiration precautions, NIH stroke scale ?Due to concerns for polypharmacy admitted decrease his Lyrica dose to 75 mg twice daily, and his primary dose to 25 mg p.o. twice daily, his was concerned that levodopa carbidopa could be a cause, I have also decreased his dose in half ? Full code ? Lovenox for DVT prophylaxis Hypercarbic respiratory failure?spoke to respiratory therapy, placed on BiPAP, antibiotics as below Pneumonia, chest x-ray showing subsegmental atelectasis lung bases, lingula -With elevated white count, and CRP likely the evidence pneumonia Plan -Sputum culture, blood cultures -Given persistently elevated WBC count, will start vancomycin, meropenem Leukocytosis with elevated CRP, ? CT chest abdomen pelvis, pneumonia ? Will consider antibiotics based on clinical progress Fall ? Cervical spine CT no acute findings -Thoracic spine CT no acute findings -Lumbar CT no acute findings Resume home BIPAP Atrial fibrillation, not exacerbation, telemetry monitoring History of tremors, on Primodine, levodopa carbidopa PT OT Physical deconditioning Plan for today BiPAP therapy continue IV antibiotics, white blood cell count 16.7 Attestations 2 Medical Necessity Statement*: Patient requires hospitalization for acute encephalopathy, polypharmacy, pneumonia, fall, leukocytosis Diagnoses Acute encephalopathy G93.40 Legally blind H54.8 ESRD (end stage renal disease) N18.6 Hypertension I10 Coronary artery disease I25.10 Atrial fibrillation, unspecified type I48.91 Hyperlipidemia E78.5 NATHALY (obstructive sleep apnea) G47.33 Fall W19.XXXA Pneumonia J18.9 Hypercapnic respiratory failure J96.92 Physical deconditioning R53.81
--- NOTE | 2023-08-29 12:17 | PM.PN ---
Subjective Subjective: no new conplints Medications: Reviewed: Yes Vitals/I&O/Wt Last Vital Signs Temp 97.5 F L 08/29/23 11:05 Pulse 64 08/29/23 11:05 Resp 18 08/29/23 11:05 BP 112/62 08/29/23 11:05 Pulse Ox 94 08/29/23 11:05 O2 Del Method Nasal Cannula 08/29/23 11:05 O2 Flow Rate 2.5 08/29/23 08:00 FiO2 40 08/29/23 03:07 08/28/23 08/29/23 08/29/23 22:59 06:59 14:59 Intake Total 710 / 1070 50 / 1120 240 / 240 Balance 710 / 1070 50 / 1120 240 / 240 Weight last 48 hrs Weight 148.835 kg Weight 155.219 kg Physical Exam Narrative: awake , alert no distress no edema on 4L O2 Data 08/29/23 02:06 08/29/23 02:06 A&P Assessment and plan (1) ESRD (end stage renal disease): Plan 1. End-stage renal disease: On [facility] schedule as patient outpatient,s/p HD wednesday , next HD wednesday 3. Acute on chronic respiratory failure: Secondary to sleep apnea COPD, now has pneumonia 4. History of A-fib 5. aNEMIA : RENATE with HD Patient evaluated using audiovisual cart. Time spent 20 minutes. Attestations Medical Necessity Statement*: per lauren Coding Level of Care Code Acute Code for Chg Fwd Diagnoses ESRD (end stage renal disease) N18.6
[2023-08-29] MEDS: polyethylene glycol 3350 Pkt 17 gm PO (13:52)
[2023-08-29] MEDS: atorvastatin 40 mg Tablet PO (17:34)
[2023-08-29] MEDS: enoxaparin 30 mg/0.3 mL Syringe SUBCUT (21:55)
[2023-08-29] MEDS: ropinirole 1 mg Tablet PO (21:55)
[2023-08-29] MEDS: lactulose oral liq 20 gm/30 mL UDC PO (21:55)
[2023-08-30] VITALS (17 sets, daily range): BP systolic 93–128; BP diastolic 49–60; PULSE 61–68; RESP 16–23; TEMP 35.9–36.9; O2SAT 92–96
[2023-08-30 03:30] LABS: Basophils % 0.2 %; Eosinophils # 0.3 10^3/uL (0.0-0.8); Eosinophils % 1.5 %; Hematocrit 34.9 % (37-53); Lymphocytes # 1.8 10^3/uL (0.8-4.8); Lymphocytes % 10.7 %; Mean Corpuscular HGB Conc 30.9 g/dL (30-55); Mean Corpuscular Hemoglobin 29.8 pg (27-33); Mean Corpuscular Volume 96.1 fl (82-101); Mean Platelet Volume 10.9 fL (7.4-10.4); Monocytes # 1.8 10^3/uL (0.2-0.9); Monocytes % 10.3 %; Neutrophils # 13.19 10^3/uL (1.8-7.7); Neutrophils % 76.8 %; Nucleated Red Blood Cells # 0.1 /100WBC; Nucleated Red Blood Cells % 0.5 %; Platelet Count 445 10^3/cmm (157-399); Red Blood Count 3.63 10^6/uL (3.85-5.65); Red Cell Distribution Width 15.9 % (12.1-15.1); White Blood Count 17.17 10^3/uL (3.29-11.43)
[2023-08-30 03:55] LABS: Alanine Aminotransferase 8 U/L (0-41); Albumin Level 3.6 g/dL (3.5-5.2); Alkaline Phosphatase 162 U/L (40-130); Anion Gap 26.2 (5-19); Aspartate Amino Transferase 38 U/L (0-40); Blood Urea Nitrogen 39 mg/dL (8-23); C Reactive Protein 103.5 mg/L (0.0-4.9); Calcium 8.3 mg/dL (8.5-10.5); Carbon Dioxide 23 mmol/L (22-29); Chloride 94 mmol/L (98-107); Globulin 3.5 g/dL (1.3-4.6); Glomerular Filtration Rate 5.2 mL/min (90-130); Glucose 103 mg/dL (65-115); Magnesium 2.3 mg/dL (1.7-2.3); Osmolality Calculated 296 mOsm/kg (285-295); Phosphorus 7.1 mg/dL (2.5-4.5); Potassium 5.2 mmol/L (3.5-5.1); Sodium 138 mmol/L (136-145); Total Bilirubin 0.3 mg/dL (0.15-1.2); Total Protein 7.1 g/dL (6.6-8.7)
[2023-08-30 03:57] LABS: Procalcitonin 0.58 ng/mL (0-0.5)
[2023-08-30] MEDS: meropenem 500 MG in sodium chloride 0.9% (plus) 50 ML 100 MG IV ×2 (05:20→21:07)
[2023-08-30] MEDS: pantoprazole DR 40 mg Tablet PO (05:20)
[2023-08-30] MEDS: fluoxetine 20 mg Capsule 60 MG PO (05:20)
--- NOTE | 2023-08-30 08:07 | PC.HD ---
Heparin 1000 units loading dose administered via venous port of HD catheter at 0755 per air conditioning mechanic's orders.
--- NOTE | 2023-08-30 08:47 | P.PN_ITS ---
Subjective 2 Subjective: getting HD , lethargic Medications: Reviewed: Yes Vitals/I&O/Wt Last Vital Signs Temp 96.6 F L 08/30/23 08:05 Pulse 61 08/30/23 08:05 Resp 18 08/30/23 08:05 BP 123/54 08/30/23 08:05 Pulse Ox 93 08/30/23 07:13 O2 Del Method BiPAP 08/30/23 07:13 O2 Flow Rate 3 08/29/23 20:53 FiO2 40 08/30/23 04:40 08/29/23 08/30/23 08/30/23 22:59 06:59 14:59 Intake Total 170.000 / 890.000 170 / 1060.000 Balance 170.000 / 890.000 170 / 1060.000 Weight last 48 hrs Weight 150.275 kg Weight 148.835 kg Physical Exam 2 Narrative: awake , alert no distress no edema on 4L O2 Data 08/30/23 02:29 08/30/23 02:29 A&P Assessment and plan (1) ESRD (end stage renal disease): Plan 1. End-stage renal disease: On [facility] schedule as patient outpatient,s/p HD wednesday , next HD today - 4L UF today 3. Acute on chronic respiratory failure: Secondary to sleep apnea COPD, now has pneumonia 4. History of A-fib 5. aNEMIA : RENATE with HD 6. metabolic encephalopathy Patient evaluated using audiovisual cart. Time spent 20 minutes. Attestations 2 Medical Necessity Statement*: per lauren Coding Level of Care Code Acute Code for g Fwd Diagnoses ESRD (end stage renal disease) N18.6
[2023-08-30] MEDS: albumin 12.5 GM/50 ML VIAL IV ×2 (09:56→10:42)
[2023-08-30] MEDS: epoetin alfa 1000 Unit/0.05 mL (ESRD) 20000 UNIT SUBCUT (11:48)
--- NOTE | 2023-08-30 14:03 | P.PN_ITS ---
Subjective 2 Subjective: Pt initially seen in dialysis where he was lethargic and unable to communicate. About an hour later he was seen lying in his bed in his room. He could make a few one-word comments that were understandable otherwise he was mumbling. Daughter in the room and very concerned about pain in his low back. Discussed with dialysis nurse who said the patient had a low blood pressure entire treatment had to give albumin and had to slow down the dialysis treatment to last an hour or longer in order to take off 4 L of fluid Vitals/I&O/Wt Last Vital Signs Temp 96.8 F L 08/30/23 12:08 Pulse 61 08/30/23 12:08 Resp 16 08/30/23 12:08 BP 122/54 08/30/23 12:08 Pulse Ox 96 08/30/23 11:21 O2 Del Method BiPAP 08/30/23 11:21 O2 Flow Rate 3 08/29/23 20:53 FiO2 40 08/30/23 04:40 08/29/23 08/30/23 08/30/23 22:59 06:59 14:59 Intake Total 170.000 / 890.000 170 / 1060.000 446 / 446 Output Total 4400 / 4400 Balance 170.000 / 890.000 170 / 1060.000 -3954 / -3954 Weight last 48 hrs Weight 154.5 kg Weight 150.275 kg Weight 148.835 kg Physical Exam 2 Narrative: Morbidly obese male in mild distress upon second exam. Lethargic. Heart: Regular rate and rhythm normal S1-S2 no loud murmur Respiratory: Clear anteriorly without wheeze Abdomen morbidly obese with umbilical hernia, chronic. Normal bowel sounds no hepatosplenomegaly Extremities 4 present diffuse nonpitting edema in the lower extremities and upper extremities. Data 08/30/23 02:29 08/30/23 02:29 A&P Assessment and plan (1) Acute encephalopathy: CT and MRI head are within normal limits. Patient has an elevated white blood cell count and CRP but no documented infection Most likely multifactorial from pneumonia hypoxia hypercarbia and possibly the effects of the medications that are not renally adjusted. They were adjusted over the weekend. Will check stat ABG now since this morning he was more awake and interactive. (2) Legally blind: (3) ESRD (end stage renal disease): On dialysis for 1 year Today had longer dialysis with increased fluid removal of 4 L (4) Hypertension: Now suffering from hypotension. Stop lisinopril. Cut diltiazem dose in half. At this time I will continue the Lasix Qualifiers: Hypertension type: unspecified Qualified Code(s): I10 - Essential (primary) hypertension (5) Coronary artery disease: Qualifiers: Coronary Disease-Associated Artery/Lesion type: unspecified vessel or lesion type [place] vs. transplanted heart: [place] heart Associated angina: w ithout angina Qualified Code(s): I25.10 - Atherosclerotic heart disease of [place] coronary artery without angina pectoris (6) Atrial fibrillation: Qualifiers: Atrial fibrillation type: unspecified Qualified Code(s): I48.91 - Unspecified atrial fibrillation (7) Hyperlipidemia: Qualifiers: Hyperlipidemia type: unspecified Qualified Code(s): E78.5 - Hyperlipidemia, unspecified (8) NATHALY (obstructive sleep apnea): (9) Fall: Qualifiers: Encounter type: subsequent encounter Qualified Code(s): W19.XXXD - Unspecified fall, subsequent encounter (10) Hypercapnic respiratory failure: Qualifiers: Chronicity: acute on chronic Qualified Code(s): J96.22 - Acute and chronic respiratory failure with hypercapnia (11) Physical deconditioning: Plan Today's plan: Stat ABG and ammonia level. As above I decreased his antihypertensives. According to the daughter all his symptoms are minimal and patient was taking care of himself walking at home prior to this admission Attestations 2 Medical Necessity Statement*: Patient requires continued hospitalization due to encephalopathy Coding Level of Care Code Acute Code for [facility] Fwd Diagnoses Acute encephalopathy G93.40 Legally blind H54.8 ESRD (end stage renal disease) N18.6 Hypertension, unspecified type I10 Hypertension type: unspecified Coronary artery disease involving [place] heart without angina pectoris, unspecified vessel or lesion type I25.10 Coronary Disease-Associated Artery/Lesion type: unspecified vessel or lesion type [place] vs. transplanted heart: [place] heart Associated angina: without angina Atrial fibrillation, unspecified type I48.91 Atrial fibrillation type: unspecified Hyperlipidemia, unspecified hyperlipidemia type E78.5 Hyperlipidemia type: unspecified NATHALY (obstructive sleep apnea) G47.33 Fall, subsequent encounter W19.XXXD Encounter type: subsequent encounter Acute on chronic respiratory failure with hypercapnia J96.22 Chronicity: acute on chronic Physical deconditioning R53.81
[2023-08-30] MEDS: albuterol 2.5 mg/3 mL Neb INHALATION ×2 (14:45→20:24)
[2023-08-30 14:56] LABS: Ammonia 32 umol/L (16-60)
[2023-08-30 14:56] LABS: ABG PCO2 57.5 mmHg (35-45); ABG PH Result 7.26 (7.35-7.45); Arterial Blood Gas Hematocrit 36.2 % (42-52); Base Excess ABG -2.3 mmol/L (-2.0-2.0); Blood Gas Allen Test Pos; Blood Gas Operator Identificat WALCI; Blood Gas Sample Site Radial, left; Blood Gas Sample Type Arterial; HCO3 ABG 25.6 mmol/L (22-26); Oxygen Device NC; PO2 ABG 75.1 mmHg (80.0-100.0)
[2023-08-30] MEDS: vancomycin 1,500 MG/300 ML PIGGYBACK 200 MG IV (16:25)
--- NOTE | 2023-08-30 17:35 | PC.NURSE ---
pt unable to safely swallow po meds, dr lomaxed to hold po meds
[2023-08-30] MEDS: enoxaparin 30 mg/0.3 mL Syringe SUBCUT (21:07)
[2023-08-31] VITALS (20 sets, daily range): BP systolic 88–130; BP diastolic 40–73; PULSE 64–82; RESP 18–24; TEMP 36.4–36.9; O2SAT 91–97
[2023-08-31 05:14] LABS: Basophils # 0.1 10^3/uL (0.0-0.1); Basophils % 0.3 %; Eosinophils # 0.4 10^3/uL (0.0-0.8); Eosinophils % 1.6 %; Hematocrit 38.8 % (37-53); Lymphocytes # 2.6 10^3/uL (0.8-4.8); Mean Corpuscular HGB Conc 29.9 g/dL (30-55); Mean Corpuscular Hemoglobin 29.2 pg (27-33); Mean Corpuscular Volume 97.7 fl (82-101); Mean Platelet Volume 10.5 fL (7.4-10.4); Monocytes # 2.8 10^3/uL (0.2-0.9); Monocytes % 12.6 %; Neutrophils # 15.86 10^3/uL (1.8-7.7); Neutrophils % 72.6 %; Nucleated Red Blood Cells # 0.3 /100WBC; Nucleated Red Blood Cells % 1.4 %; Platelet Count 455 10^3/cmm (157-399); Red Blood Count 3.97 10^6/uL (3.85-5.65); Red Cell Distribution Width 16.4 % (12.1-15.1); White Blood Count 21.86 10^3/uL (3.29-11.43)
[2023-08-31 05:36] LABS: Alanine Aminotransferase 22 U/L (0-41); Albumin Level 3.8 g/dL (3.5-5.2); Alkaline Phosphatase 162 U/L (40-130); Aspartate Amino Transferase 127 U/L (0-40); Blood Urea Nitrogen 28 mg/dL (8-23); Carbon Dioxide 21 mmol/L (22-29); Chloride 95 mmol/L (98-107); Creatinine Clr Calc Pharmacy 14.0139; Globulin 4.5 g/dL (1.3-4.6); Glomerular Filtration Rate 7.4 mL/min (90-130); Glucose 122 mg/dL (65-115); Magnesium 2.4 mg/dL (1.7-2.3); Osmolality Calculated 287 mOsm/kg (285-295); Phosphorus 6.5 mg/dL (2.5-4.5); Sodium 135 mmol/L (136-145); Total Bilirubin 0.4 mg/dL (0.15-1.2); Total Protein 8.3 g/dL (6.6-8.7)
[2023-08-31] MEDS: meropenem 500 MG in sodium chloride 0.9% (plus) 50 ML 100 MG IV ×2 (08:11→20:14)
[2023-08-31] MEDS: albuterol 2.5 mg/3 mL Neb INHALATION ×3 (08:34→19:27)
--- NOTE | 2023-08-31 11:05 | PC.NURSE ---
dr. patel notified of pts k+ 6.0, pt unable to follow commands to attempt bedside swallow test.
--- NOTE | 2023-08-31 13:18 | P.PN_ITS ---
Subjective 2 Subjective: on bipap Medications: Reviewed: Yes Vitals/I&O/Wt Last Vital Signs Temp 98.5 F 08/31/23 11:41 Pulse 71 08/31/23 11:41 Resp 20 H 08/31/23 11:41 BP 97/55 08/31/23 11:41 Pulse Ox 92 08/31/23 11:41 O2 Del Method BiPAP 08/31/23 11:41 O2 Flow Rate 5 08/31/23 08:31 FiO2 40 08/31/23 11:06 08/30/23 08/31/23 08/31/23 22:59 06:59 14:59 Intake Total 400 / 846 50 / 50 Balance 400 / -3554 50 / 50 Weight last 48 hrs Weight 149.958 kg Weight 154.5 kg Weight 150.275 kg Physical Exam 2 Narrative: awake , alert no distress no edema Data 08/31/23 05:01 08/31/23 05:01 Micro: Microbiology 08/26/23 09:32 Blood Culture - Final Blood NO GROWTH AFTER 5 DAYS 08/26/23 09:29 Blood Culture - Final Blood NO GROWTH AFTER 5 DAYS A&P Assessment and plan (1) ESRD (end stage renal disease): Plan 1. End-stage renal disease: On [facility] schedule as patient outpatient,s/p HD yesterday and HD again today 3. Acute on chronic respiratory failure: Secondary to sleep apnea COPD, now has pneumonia 4. History of A-fib 5. aNEMIA : RENATE with HD 6. metabolic encephalopathy 7. Hyperkalemia , low K diet , HD today Patient evaluated using audiovisual cart. Time spent 20 minutes. Attestations 2 Medical Necessity Statement*: per [facility] Coding Level of Care Code Acute Code for Chg Fwd Diagnoses ESRD (end stage renal disease) N18.6
--- NOTE | 2023-08-31 13:40 | P.PN_ITS ---
Subjective 2 Subjective: Patient was more awake again this morning. He was able to come off BiPAP for approximately 3 hours. He was still lethargic unable to take p.o. meds or safe for swallow. Mack, son and [id number] from [place] area present at bedside.Aunt is also visiting. And the patient's daughter, Pushpa, that I met yesterday is here as well. They are all very concerning for their dad. Vitals/I&O/Wt Last Vital Signs Temp 98.5 F 08/31/23 11:41 Pulse 71 08/31/23 11:41 Resp 20 H 08/31/23 11:41 BP 97/55 08/31/23 11:41 Pulse Ox 92 08/31/23 11:41 O2 Del Method BiPAP 08/31/23 11:41 O2 Flow Rate 5 08/31/23 08:31 FiO2 40 08/31/23 11:06 08/30/23 08/31/23 08/31/23 22:59 06:59 14:59 Intake Total 400 / 846 50 / 50 Balance 400 / -3554 50 / 50 Weight last 48 hrs Weight 149.958 kg Weight 154.5 kg Weight 150.275 kg Physical Exam 2 Narrative: Morbidly obese male who remains lethargic currently on BiPAP. Heart: Regular rate and rhythm normal S1-S2 no loud murmur Respiratory: Clear anteriorly without wheeze Abdomen morbidly obese with umbilical hernia, chronic. Normal bowel sounds no hepatosplenomegaly Extremities 4 present diffuse nonpitting edema in the lower extremities and upper extremities. Data 08/31/23 05:01 08/31/23 05:01 Micro: Microbiology 08/26/23 09:32 Blood Culture - Final Blood NO GROWTH AFTER 5 DAYS 08/26/23 09:29 Blood Culture - Final Blood NO GROWTH AFTER 5 DAYS A&P Assessment and plan (1) Acute encephalopathy: CT and MRI head are within normal limits. Patient has an elevated white blood cell count and CRP but no documented infection Most likely multifactorial from respiratory failure secondary to hypoxia & hypercarbia and possibly the effects of the medications that had not renally adjusted. They were decreased over the weekend. At this time patient has not had any oral medications since Wednesday. This includes his pain medication. After a family meeting it was decided to assess whether the patient was having withdrawal symptoms from his oral medications. Thus we will start fentanyl patch 25 mcg and give her Roxanol sublingual to see if he is withdrawing from opioids. Sinemet was the last drug started for his tremors and I will completely stop that. I am unaware of any IV or IM equivalent to Lyrica or primidone and therefore will be unable to substitute. Regarding end-stage renal failure patient is struggling with hyper kalemia and will have dialysis again today per electronics research engineer. I left a message for Dr. Liang, nephrology, to call me (2) Hypercapnic respiratory failure: Per ABG yesterday his pH was 7.26 this was lower than it had been the last few days his bicarb was over 50. He is does do better on BiPAP. Will ask Dr. Segal to consult Qualifiers: Chronicity: acute on chronic Qualified Code(s): J96.22 - Acute and chronic respiratory failure with hypercapnia (3) ESRD (end stage renal disease): On dialysis for 1 year Has not been able to get a fistula due to recurrent illness and hospitalization 08/29:had longer dialysis with increased fluid removal of 4 L Nephrology ordered dialysis today for hyperkalemia. (4) Hypertension: Now suffering from hypotension. Stop lisinopril. Cut diltiazem dose in half. Hold Lasix orally Nephrology ordered IV Lasix Qualifiers: Hypertension type: unspecified Qualified Code(s): I10 - Essential (primary) hypertension (5) Coronary artery disease: Qualifiers: Associated angina: without angina Coronary Disease-Associated Artery/Lesion type: unspecified vessel or lesion type [place] vs. transplanted heart: [place] heart Qualified Code(s): I25.10 - Atherosclerotic heart disease of [place] coronary artery without angina pectoris (6) Atrial fibrillation: Patient has been on amiodarone. Concerned whether amiodarone is lung toxicity and will stop when able to take p.o. Qualifiers: Atrial fibrillation type: unspecified Qualified Code(s): I48.91 - Unspecified atrial fibrillation (7) NATHALY (obstructive sleep apnea): (8) Fall: Qualifiers: Encounter type: subsequent encounter Qualified Code(s): W19.XXXD - Unspecified fall, subsequent encounter (9) Physical deconditioning: Plan Today's plan: Fentanyl patch and oral liquid morphine. Assess for improvement over the next 24 to 48 hours due to withdrawal. Ordered bronchodilators scheduled. I did discuss with family that bronchodilators were ineffective on PFT testing done previously. Family meeting today with son, [id number], daughter and aunt today. Discussed: * severity of obstructive lung disease * liklihood of CHF, fluid overload * significance of ESRD * multifactorial etiology of altered mental status * discussed overall prognosis with chronic respiratory failure, congestive heart failure, ESRD Attestations 2 Medical Necessity Statement*: Patient requires continued hospitalization due to encephalopathy Coding Level of Care Code Acute Code for Chg Fwd Diagnoses Acute encephalopathy G93.40 Acute on chronic respiratory failure with hypercapnia J96.22 Chronicity: acute on chronic ESRD (end stage renal disease) N18.6 Hypertension, unspecified type I10 Hypertension type: unspecified Coronary artery disease involving [place] heart without angina pectoris, unspecified vessel or lesion type I25.10 Associated angina: without angina Coronary Disease-Associated Artery/Lesion type: unspecified vessel or lesion type [place] vs. transplanted heart: [place] heart Atrial fibrillation, unspecified type I48.91 Atrial fibrillation type: unspecified NATHALY (obstructive sleep apnea) G47.33 Fall, subsequent encounter W19.XXXD Encounter type: subsequent encounter Physical deconditioning R53.81
--- NOTE | 2023-08-31 15:49 | PC.OT ---
OT tx attempted 2x today. In a.m.(1120) OT arrived to attempt feeding with pt. Pt not being allowed anything by mouth due to decreased alertness and suspicion of aspiration. Pt was lying in the bed with bipap present and resting quietly. Several family members and nurse supervisor electronics testing present in room. Family requests pt be allowed to rest at this time and attempt OT tx later today. BRADEN returned again at 1515 and pt still lying in bed on bipap and being prepared to possibly go to dialysis. Pt status declining today and unable to participate in OT tx. Plan to attempt again tomorrow as tolerated by pt.
[2023-08-31] MEDS: fentaNYL 25 mcg Patch 1 PATCH TRANSDERMA (16:35)
--- NOTE | 2023-08-31 16:39 | PC.HD ---
Of note, when this windows systems architect changed patient's HD catheter dressing prior to dialysis treatment, there was no s/s of infection noted. Catheter insertion site was clean, with no redness or drainage noted. Area was scrubbed with Chloraprep, triple antibiotic ointment was applied to catheter insertion site, and sterile Covaderm was applied. Patient tolerated well.
[2023-08-31] MEDS: morphine 10 mg/0.5 mL oral liq UD PO (20:59)
[2023-08-31] MEDS: enoxaparin 30 mg/0.3 mL Syringe SUBCUT (20:59)
--- NOTE | 2023-08-31 23:20 | PC.NURSE ---
During bedside report, this nurse was informed that the pt family and s/o, who is also his ex , had a meeting with the day shift hospitalist discussing the extent of pt condition and how it has declined. The hospitalist, Dr. Ferris, contacted the day nurse, FLORENCIO Blackmon, and told her the pt s/o made the decision to change the pt code status to DNR/DNI. The pt children and other family asked multiple times what was discussed between the Hospitalist and the s/o, so the day charge discussed the new code status with that family. The family showed obvious upset and did not agree with this decision. The family expressed significant concern with this decision and that they did not agree with it. They also questioned if the s/o was legally able to make this decision without their input. With this the charge contacted the community relations coordinator and explained the circumstances of the situation. The car inspection and repair manager contacted the hospitalist. Then contacted the lead hospitalist to consult. The night hospitalist, Dr. Landon, then called this nurse and stated that even though the pt chart states he is a DNR/DNI, the pt is to be treated as a full code. This will remain in place until the family can all sit down together and come to an agreement on pt care. This was also passed along to warehouse engineer, community relations coordinator, and current charge nurse.
[2023-09-01] VITALS (73 sets, daily range): BP systolic 86–137; BP diastolic 39–91; PULSE 67–117; RESP 13–33; TEMP 36.6–36.9; O2SAT 84–98
[2023-09-01 00:44] LABS: Erythrocyte Sedimentation Rate 93 mm/hr (0-10)
[2023-09-01 00:45] LABS: Basophils # 0.1 10^3/uL (0.0-0.1); Basophils % 0.3 %; Eosinophils # 0.3 10^3/uL (0.0-0.8); Eosinophils % 1.3 %; Hematocrit 38.9 % (37-53); Lymphocytes # 2.3 10^3/uL (0.8-4.8); Lymphocytes % 8.9 %; Mean Corpuscular HGB Conc 30.8 g/dL (30-55); Mean Corpuscular Hemoglobin 29.6 pg (27-33); Mean Corpuscular Volume 95.8 fl (82-101); Mean Platelet Volume 10.7 fL (7.4-10.4); Monocytes # 2.5 10^3/uL (0.2-0.9); Monocytes % 9.7 %; Neutrophils # 20.56 10^3/uL (1.8-7.7); Neutrophils % 78.8 %; Nucleated Red Blood Cells # 0.9 /100WBC; Nucleated Red Blood Cells % 3.3 %; Platelet Count 459 10^3/cmm (157-399); Red Blood Count 4.06 10^6/uL (3.85-5.65); Red Cell Distribution Width 16.4 % (12.1-15.1); White Blood Count 26.05 10^3/uL (3.29-11.43)
[2023-09-01 00:56] LABS: INR 1.41 (0.8-1.2)
--- NOTE | 2023-09-01 01:03 | PC.NURSE ---
Pt manual BP 100/40. Hospitalist notified and stated he will put in orders to transfer to ICU
[2023-09-01 01:06] LABS: Ammonia 31 umol/L (16-60); Lactic Sepsis W/Reflex 1.2 mmol/L (0.5-2.2)
[2023-09-01 01:12] LABS: Troponin(5th) Baseline 109 ng/L (0-15)
--- NOTE | 2023-09-01 01:15 | PC.NURSE ---
Family notified of transfer orders
--- NOTE | 2023-09-01 01:18 | ECG_ITS ---
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 Measurements Intervals [place] Rate: 77 P: 152 CA: 212 QRS: 33 QRSD: 88 T: 30 QT: 413 QTc: 468 Interpretive Statements SINUS RHYTHM WITH FIRST DEGREE AV BLOCK LOW QRS VOLTAGE [QRS DEFLECTION < 0.5/1.0 mV IN LIMB/CHEST LEADS] Compared to ECG 08/25/2023 15:35:43 No significant changes Electronically Signed On 09-01-2023 9:14:05 CDT by Juan J Parisi M.D. [id number]
--- NOTE | 2023-09-01 01:20 | ECG_ITS ---
[facility] Test Date: 2023-09-01 Pat Name: Artie Quiles Department: Room: [facility] Gender: Male Inspector Repairer: : [id number] Requested By: Moisés Landon Order Number: [id number] José Antonio MD: Juan J Parisi M.D. Measurements Intervals [place] Rate: 74 P: 220 OK: 221 QRS: -61 QRSD: 91 T: 0 QT: 405 QTc: 451 Interpretive Statements SINUS RHYTHM WITH FIRST DEGREE AV BLOCK WITH OCCASIONAL ECTOPIC PREMATURE COMPLEXES LEFT AXIS DEVIATION [QRS AXIS < -30] LOW QRS VOLTAGE IN PRECORDIAL LEADS [QRS DEFLECTION < 1.0 mV IN CHEST LEADS] MODERATE ST DEPRESSION [0.05+ mV ST DEPRESSION] Compared to ECG 09/01/2023 01:18:48 Left-axis deviation now present ST (T wave) deviation now present Electronically Signed On 09-01-2023 9:17:44 CDT by Juan J Parisi M.D. [id number]
[2023-09-01 01:21] LABS: NT Pro B Type Natriuretic Pept 1517 pg/mL (0-125); Procalcitonin 2.03 ng/mL (0-0.5)
--- NOTE | 2023-09-01 01:27 | PC.NURSE ---
Report called to FLORENCIO Forde, updated labs provided, informed of verbal orders that pt is a full code even though chart states DNR
[2023-09-01 01:32] LABS: Alanine Aminotransferase 36 U/L (0-41); Albumin Level 3.8 g/dL (3.5-5.2); Alkaline Phosphatase 155 U/L (40-130); Anion Gap 28.3 (5-19); Aspartate Amino Transferase 188 U/L (0-40); Blood Urea Nitrogen 43 mg/dL (8-23); C Reactive Protein 166.3 mg/L (0.0-4.9); Calcium 8.9 mg/dL (8.5-10.5); Carbon Dioxide 19 mmol/L (22-29); Chloride 92 mmol/L (98-107); Ferritin 801 ng/mL (30-400); Globulin 3.2 g/dL (1.3-4.6); Glomerular Filtration Rate 5.7 mL/min (90-130); Glucose 97 mg/dL (65-115); Magnesium 2.3 mg/dL (1.7-2.3); Osmolality Calculated 289 mOsm/kg (285-295); Potassium 5.3 mmol/L (3.5-5.1); Sodium 134 mmol/L (136-145); Total Bilirubin 0.3 mg/dL (0.15-1.2)
[2023-09-01] MEDS: albuterol 2.5 mg/3 mL Neb INHALATION ×3 (02:00→20:11)
[2023-09-01 02:14] LABS: LAB Peripheral Smear Sent for Review
--- NOTE | 2023-09-01 02:35 | PC.NURSE ---
Pt transported via ICU bed to ICU room 11. All belongings with pt
[2023-09-01] MEDS: norepinephrine 4 MG/250 ML BAG 7.5 MG IV (02:39)
[2023-09-01 03:10] LABS: Troponin 5 2HR Delta 1.8 ABS# (0-10)
[2023-09-01] MEDS: sodium bicarbonate 8.4% 1 mEq/mL 50mL Syr 50 MEQ IVP (03:10)
--- NOTE | 2023-09-01 03:15 | PC.NURSE ---
Received in report there was a discrepency in patient's code status. Ex /caregiver had discussed with physician on 08/31/23 to change patient to AND but patient's children requested him to be full code. To be family meeting on 09/01/23 with physician to confirm, but patient is to be full code until family meeting. Confirmed same with warehouse trainer.
[2023-09-01 03:17] LABS: Troponin 5 2HR 110.8 ng/L (0-15)
[2023-09-01 04:40] LABS: ABG PCO2 44.7 mmHg (35-45); ABG PH Result 7.27 (7.35-7.45); Alveolar-Arterial Oxygen Gradi 18.7 mmHg (5-10); Arterial Blood Gas Hematocrit 37.5 % (42-52); Base Excess ABG -6.4 mmol/L (-2.0-2.0); Blood Gas Allen Test Pos; Blood Gas Sample Site Brachial, right; Blood Gas Sample Type Arterial; Carboxyhemoglobin 0.7 %THgb (0.4-20.1); HCO3 ABG 20.4 mmol/L (22-26); HGB O2 Sat 93.5 % (95-100); Ionized Calcium Level - ABG 1.1 mmol/L (1.1-1.4); Methemoglobin 0.5 % (0.4-1.5); Oxygen Device BIPAP; Oxygen Saturation ABG 94.6; PO2 FiO2 Ratio Arterial Blood 0; Potassium Level - ABG 4.8 mmol/L (3.5-5.0); Total Hemoglobin 12.2 g/dL (14-18)
[2023-09-01] MEDS: morphine 10 mg/0.5 mL oral liq UD PO (05:53)
--- NOTE | 2023-09-01 06:58 | PM.CCNAC ---
Critical Care Event Note The high probability of a clinically significant, sudden or life threatening deterioration of the patient's [] system(s) required my full and direct attention, intervention and personal management. The critical care time is as shown. This time is in addition to time spent performing any reported procedures but includes the following: [x] Data and vital sign review and interpretation [x] Patient assessment, examination and intervention [x] Documentation [x] Medication orders and management Critical Care Time Code activated: No Critical Care Time (min): 35 Additional information about critical care time: -Patient was seen this evening, according to nursing staff blood pressures have been soft, patient has been more lethargic ? On examination he is alert to person, not to place, not to time, he can follow some commands such as squeezing my fingers, but remains globally encephalopathic ? I advised nursing staff to place him back on BiPAP, watch his blood pressures throughout the evening, if he becomes hypotensive we will have to move him to the intensive care unit ? Patient's blood pressures are trending downwards, maps less than 65, will moved to ICU ? Patient was moved to the ICU for acute hypercarbic respiratory failure, and shock, placed on Levophed at 4 ? Initial baseline troponin 109, continue to follow serial troponins ? Of noted patient CRP is 166.3, Pro-Nathan is 2.0, white blood cell count is 26,000, is afebrile ? In terms of patient's CODE STATUS, on admission, I had a detailed discussion with patient, he was a full code ? There was a discussion with patient's partner initially thought that it was patient's but it turns out it was patient's ex-, but I did not have this discussion with patient, daytime physician had discussed with patient as ex-, and patient's CODE STATUS had changed to DNR ? However according to nursing staff, patient's family specifically patient's children were quite upset, they felt that they were the next of kin, and they wanted patient's CODE STATUS to be a full code ? Currently patient cannot make decisions for himself remains globally encephalopathic, ? As on admission, I had a detailed discussion with patient, he is alert oriented x 3, could follow all commands, and he had voiced that he wanted to be a full code I will keep patient on full code ? However in the morning, the morning team, will have a detailed discussion potentially family meeting with patient's children, also I heard that patient's mom is still alive which would be next of kin, from nursing staff, and patient's ex- about discussing goals of care as currently patient cannot make decisions for himself Coding Level of Care Code Critical Care
[2023-09-01 07:13] LABS: Troponin 5 6HR Delta 1.4 ng/L (0-12)
[2023-09-01 07:25] LABS: Troponin 5 6HR 110.4 ng/L (0-15)
[2023-09-01] MEDS: aspirin 81 mg EC Tablet PO (08:44)
[2023-09-01] MEDS: midodrine 5 mg TABLET 10 MG PO ×2 (08:44→11:30)
[2023-09-01] MEDS: meropenem 500 MG in sodium chloride 0.9% (plus) 50 ML 100 MG IV ×2 (08:44→21:25)
[2023-09-01] MEDS: dilTIAZem ER (24HR) 240 mg Capsule 120 MG PO (08:45)
[2023-09-01] MEDS: tamsulosin 0.4 mg Capsule 0.800000000000000044 MG PO (08:46)
[2023-09-01] MEDS: calcium acetate 667 mg Capsule 1334 MG PO ×3 (08:49→21:26)
[2023-09-01] MEDS: heparin, porcine 1,000 unit/mL INJ 10 mL 1000 UNIT IV (11:26)
[2023-09-01] MEDS: heparin, porcine 1,000 unit/mL INJ 10 mL 10000 UNIT INTRACATH (11:35)
[2023-09-01] MEDS: methylPREDNISolone sod succ 40 mg/mL INJ IVP ×2 (12:19→17:48)
--- NOTE | 2023-09-01 13:49 | PC.SOCIAL ---
IMM Update pg 2 of IMM updated and reviewed w/ patients ex- and caregiver Mandie. Copy left @ bedside and copy dated, initialed and placed in chart.
--- NOTE | 2023-09-01 14:28 | P.PN_ITS ---
Subjective 2 Subjective: Overnight events noted: Patient in ICU originally placed on Levophed. This was weaned off prior to dialysis but had to be rereinitiated while on dialysis. Patient on BiPAP with large face mask on this appears to be operating better than other mass that was previously on. Patient would open eyes to name and converse mildly. But no consistent orientation or understanding. Vitals/I&O/Wt Last Vital Signs Temp 98.5 F 08/31/23 23:40 Pulse 107 H 09/01/23 12:30 Resp 16 09/01/23 12:30 BP 106/57 09/01/23 12:30 Pulse Ox 94 09/01/23 12:30 O2 Del Method BiPAP 09/01/23 08:00 O2 Flow Rate 40 08/31/23 20:00 FiO2 40 09/01/23 11:29 08/31/23 09/01/23 09/01/23 22:59 06:59 14:59 Intake Total 50 / 100 2 / 102 Output Total 0 / 0 0 / 0 Balance 50 / 100 2 / 102 Weight last 48 hrs Weight 145.5 kg Weight 149.958 kg Physical Exam 2 Narrative: Morbidly obese male who remains lethargic again on BiPAP Heart: Regular rate and rhythm normal S1-S2 no loud murmur Respiratory: Clear anteriorly without wheeze Abdomen morbidly obese with umbilical hernia, chronic. Normal bowel sounds no hepatosplenomegaly Extremities 4 present diffuse nonpitting edema in the lower extremities and upper extremities. Data 09/01/23 00:29 09/01/23 00:29 Micro: Microbiology 08/26/23 09:32 Blood Culture - Final Blood NO GROWTH AFTER 5 DAYS 08/26/23 09:29 Blood Culture - Final Blood NO GROWTH AFTER 5 DAYS A&P Assessment and plan (1) Acute encephalopathy: CT and MRI head are within normal limits. Patient has an elevated white blood cell count and CRP but no documented infection and has been on meropenem vancomycin since admission Most likely multifactorial from respiratory failure secondary to hypoxia & hypercarbia and possibly the effects of the medications that had not been renally adjusted. They were decreased over the weekend. And subsequently completely discontinued. At this time patient has not had any oral medications since Wednesday until today when he had Cardizem midodrine and PhosLo this a.m. He still had the fentanyl patch on this morning this was taken off by [facility] nurse information assurance manager. End-stage renal disease also part of etiology. (2) Hypercapnic respiratory failure: While on BiPAP patient seems to do well. Will add IV steroids today. Discussed with Dr. Segal who will consult tomorrow. Qualifiers: Chronicity: acute on chronic Qualified Code(s): J96.22 - Acute and chronic respiratory failure with hypercapnia (3) ESRD (end stage renal disease): On dialysis for 1 year Has not been able to get a fistula due to recurrent illness and hospitalization 08/29:had longer dialysis with increased fluid removal of 4 L 08/31: dailysis, 3L removed (4) Hypertension: Now hypotension - on/off levaphed stop all anti-hypertensives and midodrine to assess where he is now Qualifiers: Hypertension type: unspecified Qualified Code(s): I10 - Essential (primary) hypertension (5) Coronary artery disease: Qualifiers: Associated angina: without angina Coronary Disease-Associated Artery/Lesion type: unspecified vessel or lesion type [place] vs. transplanted heart: [place] heart Qualified Code(s): I25.10 - Atherosclerotic heart disease of [place] coronary artery without angina pectoris (6) Atrial fibrillation: Patient has been on amiodarone. Concerned whether amiodarone is lung toxicity and was stopped. Qualifiers: Atrial fibrillation type: unspecified Qualified Code(s): I48.91 - Unspecified atrial fibrillation (7) NATHALY (obstructive sleep apnea): (8) Fall: Qualifiers: Encounter type: subsequent encounter Qualified Code(s): W19.XXXD - Unspecified fall, subsequent encounter (9) Physical deconditioning: Plan Family meeting today with Mandie significant other whom lives with Samuel daughter Pushpa, Med/surg nurse information assurance manager, ICU nurse information assurance manager and CM We discussed: * severity of obstructive lung disease * liklihood of CHF, fluid overload * significance of ESRD * multifactorial etiology of altered mental status * discussed overall prognosis with chronic respiratory failure, congestive heart failure, ESRD * concensus with Mandie and children that pt would not want to be resusitated thus DNR/DNI * goals of care and continue aggressive treatments short of intubation at this time, will be revisited often * plan of care today: add steroids, Dr. Segal to consult tomorrow, stop opposite effect medications. Limit medication and interventions to determine new baseline status. Will not perform further infectious work up at this time due to being on antibiotics since admission. * will treat pain/discomfort to the best of our ability without compromising BP significantly with goal to stop pressors. Attestations 2 Medical Necessity Statement*: Patient requires continued hospitalization due to encephalopathy, aucte on chronic respiratory failure. Coding Level of Care Code Acute Code for [facility] Fwd Diagnoses Acute encephalopathy G93.40 Acute on chronic respiratory failure with hypercapnia J96.22 Chronicity: acute on chronic ESRD (end stage renal disease) N18.6 Hypertension, unspecified type I10 Hypertension type: unspecified Coronary artery disease involving [place] heart without angina pectoris, unspecified vessel or lesion type I25.10 Associated angina: without angina Coronary Disease-Associated Artery/Lesion type: unspecified vessel or lesion type [place] vs. transplanted heart: [place] heart Atrial fibrillation, unspecified type I48.91 Atrial fibrillation type: unspecified NATHALY (obstructive sleep apnea) G47.33 Fall, subsequent encounter W19.XXXD Encounter type: subsequent encounter Physical deconditioning R53.81
[2023-09-01 15:25] LABS: Vancomycin Random 18.3 ug/mL (20.0-40.0)
[2023-09-01] MEDS: vancomycin 1,500 MG/300 ML PIGGYBACK 200 MG IV (15:58)
--- NOTE | 2023-09-01 16:57 | PC.OT ---
HOLD OT TREATMENT TODAY DUE TO DECLINE IN STATUS; WILL ATTEMPT AGAIN TOMORROW.
--- NOTE | 2023-09-01 18:59 | PM.PN ---
Subjective Subjective: rmains letahrgic on bipap Medications: Reviewed: Yes Vitals/I&O/Wt Last Vital Signs Temp 97.9 F 09/01/23 17:29 Pulse 104 H 09/01/23 17:29 Resp 22 H 09/01/23 17:29 BP 95/43 09/01/23 17:29 Pulse Ox 93 09/01/23 16:30 O2 Del Method BiPAP 09/01/23 08:00 O2 Flow Rate 40 08/31/23 20:00 FiO2 40 09/01/23 15:41 09/01/23 09/01/23 09/01/23 06:59 14:59 22:59 Intake Total 102 500 / 500 Output Total 0 / 0 3364 / 3364 Balance 102 -2864 / -2864 Weight last 48 hrs Weight 142.5 kg Weight 145.5 kg Weight 149.958 kg Physical Exam Narrative: lethargic , on bipap Data 09/01/23 00:29 09/01/23 00:29 A&P Assessment and plan (1) ESRD (end stage renal disease): Plan 1. End-stage renal disease: On MWF schedule as patient outpatient , HD today 3. Acute on chronic respiratory failure: Secondary to sleep apnea COPD, now has pneumonia, on BIPAP 4. History of A-fib 5. aNEMIA : RENATE with HD 6. metabolic encephalopathy 7. Hyperkalemia , low K diet , HD today Patient evaluated using audiovisual cart. Time spent 20 minutes. Attestations Medical Necessity Statement*: PER MANUEL Coding Level of Care Code Acute Code for Chg Fwd Diagnoses ESRD (end stage renal disease) N18.6
[2023-09-01] MEDS: enoxaparin 30 mg/0.3 mL Syringe SUBCUT (21:26)
--- NOTE | 2023-09-01 22:17 | PC.NURSE ---
At the beginning of this nurse's shift the levophed drip was running at 8mcg/min. MAR was updated to reflect this.
[2023-09-01] MEDS: norepinephrine 4 MG/250 ML BAG 30 MG IV (23:27)
[2023-09-02] VITALS (47 sets, daily range): BP systolic 77–137; BP diastolic 26–95; PULSE 86–109; RESP 10–28; TEMP 36.4–37; O2SAT 88–96; BMI 43.8
[2023-09-02] MEDS: methylPREDNISolone sod succ 40 mg/mL INJ IVP ×4 (00:09→21:15)
[2023-09-02] MEDS: albuterol 2.5 mg/3 mL Neb INHALATION ×4 (02:14→20:47)
[2023-09-02] MEDS: fluoxetine 20 mg Capsule 60 MG PO (05:09)
--- NOTE | 2023-09-02 07:51 | P.PN_ITS ---
Subjective 2 Subjective: on BIPAP on pressors Medications: Reviewed: Yes Vitals/I&O/Wt Last Vital Signs Temp 98.6 F 09/02/23 00:00 Pulse 103 H 09/02/23 05:45 Resp 20 H 09/02/23 04:00 BP 122/68 09/02/23 04:00 Pulse Ox 95 09/02/23 04:00 O2 Del Method BiPAP 09/02/23 04:00 O2 Flow Rate 40 08/31/23 20:00 FiO2 40 09/02/23 04:00 09/01/23 09/02/23 09/02/23 22:59 06:59 14:59 Intake Total 748.00 / 798.00 122.625 / 920.625 Output Total 3364 / 3364 Balance -2616.00 / -2566.00 122.625 / -2443.375 Weight last 48 hrs Weight 142.598 kg Weight 142.5 kg Weight 145.5 kg Physical Exam 2 Narrative: lethargic , on bipap Data 09/01/23 00:29 09/01/23 00:29 A&P Assessment and plan (1) ESRD (end stage renal disease): Plan 1. End-stage renal disease: On MWF schedule as patient outpatient , HD done yesterday , BMP pending 3. Acute on chronic respiratory failure: Secondary to sleep apnea COPD, now has pneumonia, on BIPAP 4. History of A-fib 5. aNEMIA : RENATE with HD 6. metabolic encephalopathy 7. Hyperkalemia , low K diet , Patient evaluated using audiovisual cart. Time spent 20 minutes. Attestations 2 Medical Necessity Statement*: per lauren Coding Level of Care Code Acute Code for Chg Fwd Diagnoses ESRD (end stage renal disease) N18.6
[2023-09-02] MEDS: aspirin 81 mg EC Tablet PO (08:21)
[2023-09-02] MEDS: calcium acetate 667 mg Capsule 1334 MG PO ×3 (08:21→21:13)
[2023-09-02] MEDS: morphine 10 mg/0.5 mL oral liq UD PO ×3 (08:21→21:14)
[2023-09-02] MEDS: meropenem 500 MG in sodium chloride 0.9% (plus) 50 ML 100 MG IV (08:21)
[2023-09-02 08:44] LABS: Basophils # 0.1 10^3/uL (0.0-0.1); Basophils % 0.4 %; Hematocrit 40.3 % (37-53); Lymphocytes # 0.8 10^3/uL (0.8-4.8); Lymphocytes % 2.8 %; Mean Corpuscular HGB Conc 31.8 g/dL (30-55); Mean Corpuscular Hemoglobin 29.5 pg (27-33); Mean Corpuscular Volume 92.9 fl (82-101); Mean Platelet Volume 10.7 fL (7.4-10.4); Monocytes # 0.9 10^3/uL (0.2-0.9); Neutrophils # 27.18 10^3/uL (1.8-7.7); Neutrophils % 91.9 %; Nucleated Red Blood Cells % 3.3 %; Platelet Count 525 10^3/cmm (157-399); Red Blood Count 4.34 10^6/uL (3.85-5.65); Red Cell Distribution Width 16.3 % (12.1-15.1); White Blood Count 29.54 10^3/uL (3.29-11.43)
[2023-09-02 09:06] LABS: Alanine Aminotransferase 61 U/L (0-41); Albumin Level 3.7 g/dL (3.5-5.2); Alkaline Phosphatase 159 U/L (40-130); Anion Gap 29.7 (5-19); Aspartate Amino Transferase 214 U/L (0-40); Blood Urea Nitrogen 56 mg/dL (8-23); Calcium 9.9 mg/dL (8.5-10.5); Carbon Dioxide 20 mmol/L (22-29); Chloride 91 mmol/L (98-107); Creatinine Clr Calc Pharmacy 11.9999; Globulin 4.4 g/dL (1.3-4.6); Glomerular Filtration Rate 6.4 mL/min (90-130); Glucose 150 mg/dL (65-115); Osmolality Calculated 300 mOsm/kg (285-295); Potassium 4.7 mmol/L (3.5-5.1); Sodium 136 mmol/L (136-145); Total Bilirubin 0.4 mg/dL (0.15-1.2); Total Protein 8.1 g/dL (6.6-8.7)
[2023-09-02 09:09] LABS: D Dimer 1.68 ug/mLFEU (0-0.59)
--- NOTE | 2023-09-02 11:30 | P.PN_ITS ---
Subjective 2 Subjective: Patient more awake and alert today. Seems to answer a few questions appropriately. He will say yes to pain. But he cannot name where the pain is he can only say yes or no to certain locations. Vitals/I&O/Wt Last Vital Signs Temp 98.6 F 09/02/23 00:00 Pulse 108 H 09/02/23 08:30 Resp 28 H 09/02/23 08:30 BP 94/60 09/02/23 08:30 Pulse Ox 91 09/02/23 08:30 O2 Del Method BiPAP 09/02/23 07:50 O2 Flow Rate 40 08/31/23 20:00 FiO2 40 09/02/23 07:52 09/01/23 09/02/23 09/02/23 22:59 06:59 14:59 Intake Total 798.00 / 848.00 122.625 / 970.625 Output Total 3364 / 3364 Balance -2566.00 / -2516.00 122.625 / -2393.375 Weight last 48 hrs Weight 142.598 kg Weight 142.5 kg Weight 145.5 kg Physical Exam 2 Narrative: Morbidly obese male who is off BiPAP and more alert today than all week. Heart: Regular rate and rhythm normal S1-S2 no loud murmur Respiratory: Clear anteriorly without wheeze Abdomen morbidly obese with umbilical hernia, chronic. Normal bowel sounds no hepatosplenomegaly Extremities 4 present diffuse nonpitting edema in the lower extremities and upper extremities. Data 09/02/23 08:24 09/02/23 08:24 A&P Assessment and plan (1) Acute encephalopathy: Most likely multifactorial from respiratory failure with hypoxia & hypercarbia and possibly the effects of medications used to treat tremor that had not been renally adjusted, and ESRD. The medications were decreased over the weekend( August 27) and hasn't had any since then due to mentation. Consideration was given to opioid withdrawal and patient was given opioid's orally and a fentanyl patch was placed. This did not improve his condition and with hypotension and those were discontinued as well. all meds except phos lo were discontinued yesterday. Today will add midodrine to aid BP in order to stop levaphed as goal. (2) Hypercapnic respiratory failure: Off BiPAP today. I suspect IV steroids improved patient's respiratory failure. Will slowly wean steroids. Discussed with Dr. Segal planned for today Qualifiers: Chronicity: acute on chronic Qualified Code(s): J96.22 - Acute and chronic respiratory failure with hypercapnia (3) ESRD (end stage renal disease): On dialysis for 1 year Has not been able to get a fistula due to recurrent illness and hospitalization 08/29:had longer dialysis with increased fluid removal of 4 L 08/31: dailysis, 3L removed Plan for dialysis on Saturday 09/02. (4) Hypertension: Now hypotension -has been on/off levaphed; today on low-dose Levophed with plans to wean. Will add midodrine 10 mg 3 times daily to assist with discontinuation of Levophed. Qualifiers: Hypertension type: unspecified Qualified Code(s): I10 - Essential (primary) hypertension (5) Coronary artery disease: Qualifiers: Associated angina: without angina Coronary Disease-Associated Artery/Lesion type: unspecified vessel or lesion type [place] vs. transplanted heart: [place] heart Qualified Code(s): I25.10 - Atherosclerotic heart disease of [place] coronary artery without angina pectoris (6) Atrial fibrillation: Patient has been on amiodarone. Concerned whether amiodarone causing lung toxicity and worsening of respiratory failure and thus was discontinued. Qualifiers: Atrial fibrillation type: unspecified Qualified Code(s): I48.91 - Unspecified atrial fibrillation (7) NATHALY (obstructive sleep apnea): (8) Fall: Qualifiers: Encounter type: subsequent encounter Qualified Code(s): W19.XXXD - Unspecified fall, subsequent encounter (9) Physical deconditioning: (10) Elevated WBC count: Patient's WBC was 26 prior to starting steroids. Now 29 K I think this is due to steroid initiation. This was discussed with RN. Plan Plan of care today: * Add midodrine 10 mg p.o. 3 times daily * Wean Levophed to off * Discussed with case management. Consideration of LTAC. Since patient has [facility] it is more likely he will be excepted at an LTAC. I believe this is a good option as patient has been acutely ill for 8 days here at [facility]. While he is improving he will need an extended hospitalization to return home. * Stop IV antibiotics. He has received 7 days of IV antibiotics with no source. * Recognition of elevated white blood cell count that is worsened by steroid usage. * After 24 hours without antibiotics or a fever spike will consider septic workup again. * Plan of care reviewed with Laz MATIAS extensively. Attestations 2 Medical Necessity Statement*: Patient requires continued hospitalization due to encephalopathy, aucte on chronic respiratory failure. Coding Level of Care Code Acute Code for Chg Fwd Diagnoses Acute encephalopathy G93.40 Acute on chronic respiratory failure with hypercapnia J96.22 Chronicity: acute on chronic ESRD (end stage renal disease) N18.6 Hypertension, unspecified type I10 Hypertension type: unspecified Coronary artery disease involving [place] heart without angina pectoris, unspecified vessel or lesion type I25.10 Associated angina: without angina Coronary Disease-Associated Artery/Lesion type: unspecified vessel or lesion type [place] vs. transplanted heart: [place] heart Atrial fibrillation, unspecified type I48.91 Atrial fibrillation type: unspecified NATHALY (obstructive sleep apnea) G47.33 Fall, subsequent encounter W19.XXXD Encounter type: subsequent encounter Physical deconditioning R53.81 Elevated WBC count D72.829
[2023-09-02] MEDS: midodrine 5 mg TABLET 10 MG PO ×2 (14:15→21:15)
--- NOTE | 2023-09-02 16:40 | P.CONIM_ITS ---
Providers/Reason For Consult 2 Consulting Physician/Specialty*: Kehinde Segal MD FCCP/pulmonary critical care Reason for Consult*: Altered mental status and patient with hypotension Requesting Physician: Main Artis DO Attending Physician: Main Artis DO Primary Care Provider: Lovely Ivey MD History of Present Illness History of Present Illness I know Mr. Artie Quiles as an outpatient for chronic hypercapnic respiratory failure secondary to underlying COPD, CHF, NATHALY, ESRD on hemodialysis. He is a 68-year-old male with past medical history of COPD, CAD, on home O2, hypertension, congestive heart failure, legally blind, obstructive sleep apnea, type 2 diabetes, atrial fibrillation, ESRD on hemodialysis. He also had persistent tremors during previous hospitalizations for which she was on primidone-however after adding low-dose carbidopa his tremors were better. He was following up with neurology as outpatient. On 08/25/2023-patient admitted to [facility] for intermittent episodes of confusion and increasing tremor. CT head as well as head MRI within normal limits. He had CT chest abdomen pelvis-which showed subsegmental atelectasis in lung bases and lingula. Sigmoid diverticulosis. Tiny pericardial effusion. His electrolytes, WBC were normal. Patient had a hyperkalemia which is corrected with his scheduled dialysis. ABG showed hypercapnia with acidotic pH. There were no signs and symptoms of sepsis, however cultures were sent and he was started on vancomycin and meropenem since admission. His blood pressure dropped early hours of 09/01/2023 and was started on Levophed. He does require pressor support on the days he received hemodialysis. Patient was also started on methylprednisone 40 every 6. 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 Review of Systems 2 General: Reports: 10 or more systems reviewed and unremarkable except in HPI and below Medications/Allergies Home Medications Medication Instructions Recorded Confirmed Last Taken Type aspirin 81 mg tablet,delayed 81 mg PO DAILY 11/27/20 08/25/23 08/25/23 History release (Adult Low Dose Aspirin) atorvastatin 80 mg tablet 40 mg PO QPM 11/27/20 08/25/23 08/24/23 History docusate sodium 100 mg capsule 100 mg PO BID PRN Constipation 11/27/20 08/25/23 Unknown History nitroglycerin 0.4 mg sublingual 0.4 mg sublingual Q5M PRN Chest 11/27/20 08/25/23 Unknown History tablet Pain polyethylene glycol 3350 17 17 g PO DAILY PRN Constipation 11/27/20 08/25/23 Unknown History gram/dose oral powder pregabalin 150 mg capsule 150 mg PO BID 11/27/20 08/25/23 08/25/23 History inhalational spacing device (Allan #1 ea 05/20/21 08/25/23 Unknown Rx Aerosol [place] Enhancer spacer) ipratropium bromide 0.02 % 2.5 ml inhalation Q4H PRN 06/17/22 08/25/23 Unknown History solution for inhalation Shortness Of Breath Or Wheezing nebulizer accessories #1 ea 06/18/22 08/25/23 Unknown Rx albuterol sulfate 2.5 mg/3 mL 2.5 mg inhalation Q4H PRN 08/21/22 08/25/23 Unknown History (0.083 %) solution for nebulization Shortness Of Breath Or Wheezing ascorbic acid (vitamin C) 500 mg 1,000 mg PO DAILY 08/21/22 08/25/23 08/25/23 History tablet (Vitamin C) fluticasone propionate 50 1 spray intranasal DAILY 08/21/22 08/25/23 08/25/23 History mcg/actuation nasal spray,suspension lidocaine 5 % topical ointment 1 applic topical DAILY PRN Pain 08/21/22 08/25/23 Unknown History naloxone 4 mg/actuation nasal spray 4 mg intranasal Q3M PRN Opioid 08/21/22 08/25/23 Unknown History Overdose tamsulosin 0.4 mg capsule 0.8 mg PO QPM 08/21/22 08/25/23 08/24/23 History vit C 250 mg-vit E 90 mg-zinc 40 1 cap PO BID 08/21/22 08/25/23 08/25/23 History mg-copper 1 [id number] capsule (PreserVision AREDS-2) zinc gluconate 50 mg tablet 50 mg PO DAILY 0308/25/23 08/25/23 History diltiazem HCl 240 mg 240 mg PO DAILY #60 tabs 08/27/22 08/25/23 08/25/23 Rx tablet,extended release 24 hr (Cardizem LA) budesonide-formoterol HFA 160 2 puff inhalation BID #10.2 grams 05/11/23 08/25/23 08/25/23 Rx mcg-4.5 mcg/actuation aerosol inhaler (Symbicort) calcium acetate 667 mg tablet 1,334 mg PO TID 05/11/23 08/25/23 08/25/23 History carboxymethylcellulose sodium 0.5 1 drp ophthalmic (eye) QID PRN Dry 05/11/23 08/25/23 Unknown History % eye drops (Refresh Tears) Eye(S) ipratropium 0.5 mg-albuterol 3 mg 3 ml inhalation Q4H PRN wheezing 05/11/23 08/25/23 Unknown Rx (2.5 mg base)/3 mL nebulization #90 mL soln loratadine 10 mg tablet (Allergy 10 mg PO DAILY 05/11/23 08/25/23 08/25/23 History Relief (loratadine)) lorazepam 0.5 mg tablet See Rx Instructions .Route .COMPLEX 05/11/23 08/25/23 Unknown History primidone 50 mg tablet 50 mg PO BID 05/11/23 08/25/23 08/25/23 History ropinirole 1 mg tablet 1 mg PO BEDTIME 05/11/23 08/25/23 08/24/23 History tiotropium bromide 18 mcg capsule 1 cap inhalation DAILY #60 05/11/23 08/25/23 08/25/23 Rx with inhalation device (Spiriva inhalations with HandiHaler) carbamide peroxide 6.5 % ear drops 4 drp otic (ear) Q30D PRN Ear Wax 05/18/23 08/25/23 Unknown History diphenhydramine 25 2 tab PO BEDTIME 05/18/23 08/25/23 08/24/23 History mg-acetaminophen 500 mg tablet (Tylenol PM Extra Strength) fluoxetine 20 mg capsule 60 mg PO QAM 05/18/23 08/25/23 08/25/23 History guaifenesin 400 mg tablet 400 mg PO Q4H PRN Congestion 05/18/23 08/25/23 Unknown History melatonin 5 mg tablet 10 mg PO BEDTIME 05/18/23 08/25/23 08/24/23 History nystatin 100,000 unit/mL oral 10 ml PO TID PRN unknown 05/18/23 08/25/23 Unknown History suspension omeprazole 40 mg capsule,delayed 40 mg PO QAM 05/18/23 08/25/23 08/25/23 History release polyvinyl alcohol 1.4 % eye drops 2 drp ophthalmic (eye) BID PRN Dry 05/18/23 08/25/23 Unknown History (Artificial Tears (polyvinyl Eyes alcohol)) vitamin B complex-vitamin C-folic 1 tab PO DAILY 05/18/23 08/25/23 08/25/23 History acid 0.8 mg tablet (Renal-Kerrie) furosemide 80 mg tablet (Lasix) 40 mg (1/2 x 80 mg) PO BID 30 days 05/20/23 08/25/23 08/25/23 Rx #30 tabs albuterol sulfate 90 mcg/actuation 1 inh inhalation QID PRN shortness 06/08/23 08/25/23 Unknown Rx aerosol inhaler (Ventolin HFA) of breath or wheezing #8.5 grams sodium chloride 3 % for 4 ml inhalation BID PRN congestion 07/15/23 08/25/23 08/24/23 Rx nebulization #240 mL acetaminophen 325 mg tablet 325 - 650 mg PO QID PRN Pain 08/25/23 08/25/23 Unknown History amiodarone 200 mg tablet 200 mg PO DAILY 08/25/23 08/25/23 08/25/23 History carbidopa 10 mg-levodopa 100 mg 0.5 tab PO BID 08/25/23 08/25/23 08/25/23 History tablet lisinopril 10 mg tablet 10 mg PO DAILY 08/25/23 08/25/23 08/25/23 History oxycodone 10 mg tablet 10 mg PO Q6H PRN Pain 08/25/23 08/25/23 Unknown History Allergies Allergy/AdvReac Type Severity Reaction Status Date / Time Iodinated Contrast Media Allergy Severe anaphylaxis Verified 08/25/23 13:53 Current Medications Generic Name Dose Route Start Last Admin Trade Name Freq PRN Reason Stop Dose Admin Albuterol Sulfate 2.5 mg 08/31/23 14:00 09/02/23 13:23 Albuterol 2.5 Mg/3 Ml Neb INHALATION 2.5 mg Q6H.RESP SHANTE Administration Aspirin 81 mg 08/26/23 09:00 09/02/23 08:21 Aspirin 81 Mg Ec Tablet PO 81 mg DAILY SHANTE Administration Atorvastatin Calcium 40 mg 08/25/23 21:00 08/30/23 17:35 Atorvastatin 40 Mg Tablet PO Not Given QPM SHANTE Calcium Acetate 1,334 mg 08/25/23 15:55 09/02/23 14:15 Calcium Acetate 667 Mg Capsule PO 1,334 mg TID SHANTE Administration Enoxaparin Sodium 30 mg 08/26/23 21:00 09/01/23 21:26 Enoxaparin 30 Mg/0.3 Ml Syringe SUBCUT 30 mg Q24H SHANTE Administration Fentanyl 1 patch 08/31/23 13:45 08/31/23 16:35 Fentanyl 25 Mcg Patch TRANSDERMA 1 patch Q72H SHANTE Administration Fluoxetine HCl 60 mg 08/26/23 06:00 09/02/23 05:09 Fluoxetine 20 Mg Capsule PO 60 mg QAM SHANTE Administration norepinephrine 4 mg in 250 mls @ 0 mls/hr 09/01/23 02:30 09/02/23 05:50 Levophed IV 2 mcg/min .Q0M SHANTE 7.5 mls/hr Titration Protocol Per Protocol Methylprednisolone Sodium Succinate 40 mg 09/02/23 14:00 09/02/23 14:16 Methylprednisolone Sod Succ 40 Mg/Ml Inj IVP 40 mg Q8H SHANTE Administration Midodrine 10 mg 09/02/23 15:00 09/02/23 14:15 Midodrine 5 Mg Tablet PO 10 mg TID SHANTE Administration Morphine Sulfate 10 mg 08/31/23 13:38 09/02/23 13:43 Morphine 10 Mg/0.5 Ml Oral Liq Ud PO 10 mg Q3H PRN Administration PAIN Ondansetron HCl 4 mg 08/25/23 15:55 08/28/23 08:45 Ondansetron 2 Mg/Ml Sdv 2 Ml IVP 4 mg Q8H PRN Administration vomiting, or N/V if npo Oxycodone HCl 10 mg 08/25/23 16:05 08/29/23 13:56 Oxycodone 5 Mg Ir Tab/Cap PO 10 mg Q6H PRN Administration Pain PFSH Acute 2 PFSH: Medical History Pneumonia Acute encephalopathy Volume overload Acute exacerbation of chronic obstructive airways disease Acute respiratory failure with hypoxemia End-stage renal disease (ESRD) ESRD (end stage renal disease) Septic shock GI bleed Acute respiratory failure with hypoxia Hyperkalemia NSTEMI (non-ST elevated myocardial infarction) Rib fractures Kidney lesion Acute anemia Abnormal CT scan, kidney Legally blind NATHALY (obstructive sleep apnea) Nightly CPAP Hyperkalemia Sepsis EDWIN (acute kidney injury) Chest pain Atrial fibrillation CHF (congestive heart failure) COPD (chronic obstructive pulmonary disease) 2L Smoker Hyperlipidemia Hypertension History of type 2 diabetes mellitus Coronary artery disease UTI (urinary tract infection) Pyelonephritis of left kidney Surgical History History of heart artery stent Family History Mother Skin cancer (melanoma) Heart attack Social History Smoking and tobacco/nicotine status: former use of tobacco/nicotine Quit status (tobacco/nicotine): has quit using Year quit tobacco: August 2020 [id number] Second hand smoke exposure: Yes Alcohol intake: never Substance/Drug Use: never Caregiver/support person: Yes Lives independently: Yes Household members: significant other Marital status: service: Yes Current occupational status: retired and disabled Pets and animals: Yes Do you think of yourself as: Straight/Heterosexual Current gender identity: Male Vitals/I&O/Wt Last Vital Signs Temp 98.6 F 09/02/23 00:00 Pulse 102 H 09/02/23 16:00 Resp 17 09/02/23 16:00 BP 83/26 09/02/23 16:00 Pulse Ox 88 L 09/02/23 16:00 O2 Del Method Nasal Cannula 09/02/23 13:20 O2 Flow Rate 5 09/02/23 13:20 FiO2 40 09/02/23 07:52 09/02/23 09/02/23 09/02/23 06:59 14:59 22:59 Intake Total 122.625 / 970.625 Balance 122.625 / -2393.375 Weight last 48 hrs Weight 314 lb 6 oz Weight 314 lb 2.539 oz Weight 320 lb 12.361 oz Physical Exam 2 Narrative: General: alert, intermittently confused, NAD, morbidly obese adult male lying in bed HEENT: conj clear, EOMI, PERRL, mmm, Neck: supple, no meningismus Heme: no cervical LAP Respiratory: Inspection: No visible deformity of the chest wall Palpation: Trachea is mildly deviated to the right, bilateral symmetric expansion Percussion: Bilateral tympanic percussion note both anterior and posteriorly Auscultation: Bilateral clear to auscultation both anterior and posteriorly, no crackles wheezing or rhonchi Cardiovascular: rrr, nl s1s2, no mrg Abdomen: soft, nt, nd, no r/g, bs+ Extremities: pulses +, no edema, no c/c : no CVA tenderness Skin: intact, no rash MSK: no back or neck pain Neurologic: Alert and but intermittently confused, no gross motor dysfunction Data 09/02/23 08:24 09/02/23 08:24 Other Labs: Laboratory Results WBC 29.54 10^3/uL (3.29-11.43) H 09/02/23 08:24 RBC 4.34 10^6/uL (3.85-5.65) 09/02/23 08:24 Hgb 12.80 g/dL (11.27-16.99) 09/02/23 08:24 Hct 40.3 % (37-53) 09/02/23 08:24 MCV 92.9 fl (82-101) 09/02/23 08:24 MCH 29.5 pg (27-33) 09/02/23 08:24 MCHC 31.8 g/dL (30-55) 09/02/23 08:24 RDW 16.3 % (12.1-15.1) H 09/02/23 08:24 Plt Count 525 10^3/cmm (157-399) H 09/02/23 08:24 MPV 10.7 fL (7.4-10.4) H 09/02/23 08:24 Neut % (Auto) 91.9 % 09/02/23 08:24 Lymph % (Auto) 2.8 % 09/02/23 08:24 [place] % (Auto) 3.0 % 09/02/23 08:24 Eos % (Auto) 0.0 % 09/02/23 08:24 Baso % (Auto) 0.4 % 09/02/23 08:24 Neut # (Auto) 27.18 10^3/uL (1.8-7.7) H 09/02/23 08:24 Lymph # (Auto) 0.8 10^3/uL (0.8-4.8) 09/02/23 08:24 [place] # (Auto) 0.9 10^3/uL (0.2-0.9) 09/02/23 08:24 Eos # (Auto) 0.0 10^3/uL (0.0-0.8) 09/02/23 08: Baso # (Auto) 0.1 10^3/uL (0.0-0.1) 09/02/23 08:24 Nucleated RBC % (auto) 3.3 % 09/02/23 08:24 Nucleated RBCs # 1.0 /100WBC 09/02/23 08:24 Peripher Smr Path Cons Sent for review 09/01/23 00:29 ESR 93 mm/hr (0-10) H 09/01/23 00:29 PT 17.70 SECONDS (12.1-14.9) H 09/01/23 00:29 INR 1.41 (0.8-1.2) H 09/01/23 00:29 D-Dimer 1.68 ug/mLFEU (0-0.59) H 09/02/23 08:24 Specimen Type Arterial 09/01/23 04:35 Sample Site Brachial, right 09/01/23 04:35 ABG pH 7.27 (7.35-7.45) L 09/01/23 04:35 ABG pCO2 44.7 mmHg (35-45) 09/01/23 04:35 ABG pO2 82.0 mmHg (80.0-100.0) 09/01/23 04:35 ABG PO2/FiO2 Ratio 0 09/01/23 04:35 ABG HCO3 20.4 mmol/L (22-26) L 09/01/23 04:35 ABG O2 Saturation 94.6 09/01/23 04:35 ABG Base Excess -6.4 mmol/L (-2.0-2.0) L 09/01/23 04:35 [place] Test Pos 09/01/23 04:35 A-a O2 Gradient 18.7 mmHg (5-10) H 09/01/23 04:35 Hematocrit 37.5 % (42-52) L 09/01/23 04:35 Hgb O2 Saturation 93.5 % (95-100) L 09/01/23 04:35 Carboxyhemoglobin 0.7 %THgb (0.4-20.1) 09/01/23 04:35 Methemoglobin 0.5 % (0.4-1.5) 09/01/23 04:35 Total Hemoglobin 12.2 g/dL (14-18) L 09/01/23 04:35 Sodium 136.0 mmol/L (131-143) 09/01/23 04:35 Potassium 4.8 mmol/L (3.5-5.0) 09/01/23 04:35 Glucose 103.0 mg/dL (70-115) 09/01/23 04:35 Ionized Calcium 1.1 mmol/L (1.1-1.4) 09/01/23 04:35 O2 Delivery Device Bipap 09/01/23 04:35 O2 Liters/Min 5.0 % 08/30/23 14:45 FiO2 40.0 % 09/01/23 04:35 PEEP 10.0 cmH20 09/01/23 04:35 Music Store Manager ID [email or web address] 09/01/23 04:35 Sodium 136 mmol/L (136-145) 09/02/23 08:24 Potassium 4.7 mmol/L (3.5-5.1) 09/02/23 08:24 Chloride 91 mmol/L (98-107) L 09/02/23 08:24 Carbon Dioxide 20 mmol/L (22-29) L 09/02/23 08:24 Anion Gap 29.7 (5-19) H 09/02/23 08:24 BUN 56 mg/dL (8-23) H 09/02/23 08:24 Creatinine 8.4 mg/dL (0.7-1.2) H* 09/02/23 08:24 GFR Calculation 6.4 mL/min (90-130) L 09/02/23 08:24 Glucose 150 mg/dL (65-115) H 09/02/23 08:24 Estimat Average Glucose 117 08/26/23 05:22 Hemoglobin A1c 5.7 % (4.0-6.0) 08/26/23 05:22 Calculated Osmolality 300 mOsm/kg (285-295) H 09/02/23 08:24 Lactic Acid 1.2 mmol/L (0.5-2.2) 09/01/23 00:29 Calcium 9.9 mg/dL (8.5-10.5) 09/02/23 08:24 Ionized Calcium [place] 0.9 mmol/L (1.1-1.4) L 08/25/23 12:47 Phosphorus 6.5 mg/dL (2.5-4.5) H 08/31/23 05:01 Magnesium 2.3 mg/dL (1.7-2.3) 09/01/23 00:29 Ferritin 801 ng/mL (30-400) H 09/01/23 00:29 Total Bilirubin 0.4 mg/dL (0.15-1.2) 09/02/23 08:24 Direct Bilirubin 0.20 mg/dL (0.00-0.30) 08/25/23 12:47 AST 214 U/L (0-40) H 09/02/23 08:24 ALT 61 U/L (0-41) H 09/02/23 08:24 Alkaline Phosphatase 159 U/L (40-130) H 09/02/23 08:24 Ammonia 31 umol/L (16-60) 09/01/23 00:29 Creatine Kinase 89 U/L (39-308) 08/25/23 12:47 Troponin T Baseline 109 ng/L (0-15) H* 09/01/23 00:29 Troponin T 120 Minute 110.8 ng/L (0-15) H 09/01/23 02:38 Delta Troponin T 1.8 ABS# (0-10) 09/01/23 02:38 Troponin T Hi Sens 6Hr 110.4 ng/L (0-15) H 09/01/23 06:42 Troponin T Hi Sens 6Hr Delta 1.4 ng/L (0-12) 09/01/23 06:42 C-Reactive Protein 166.3 mg/L (0.0-4.9) H 09/01/23 00:29 NT-Pro-B Natriuret Pep 1517 pg/mL (0-125) H 09/01/23 00:29 Total Protein 8.1 g/dL (6.6-8.7) 09/02/23 08:24 Albumin 3.7 g/dL (3.5-5.2) 09/02/23 08:24 Globulin 4.4 g/dL (1.3-4.6) 09/02/23 08:24 Triglycerides 111 mg/dL (0-150) 08/26/23 05:22 Cholesterol 101 mg/dL (0-200) 08/26/23 05:22 LDL Cholesterol, Calc 45 mg/dL (50-129) L 08/26/23 05:22 HDL Cholesterol 34 mg/dL (60-100) L 08/26/23 05:22 LDL/HDL Ratio 1.32 RATIO (0.00-3.22) 08/26/23 05:22 Cholesterol/HDL Ratio 2.97 mg/dL (1.0-5.00) 08/26/23 05:22 Vitamin B12 756 pg/mL (232-1245) 08/25/23 12:47 Folate 15.9 ng/mL (4.5-32.2) 08/25/23 12:47 Procalcitonin 2.03 ng/mL (0-0.5) H 09/01/23 00:29 TSH 1.05 uIU/mL (0.27-4.20) 08/25/23 12:47 Random Cortisol 6.29 ug/dL (2.47-19.5) 08/25/23 12:47 Random Vancomycin 18.3 ug/mL (20.0-40.0) L 09/01/23 15:02 Adenovirus (PCR) Not detected (NOT DETECT) 08/25/23 17:28 C. pneumoniae DNA (PCR) Not detected (NOT DETECT) 08/25/23 17:28 Coronavirus 229E (PCR) Not detected (NOT DETECT) 08/25/23 17:28 Hep Bs Antigen Non-reactive (Nonreactive) 08/25/23 10:57 Hep Bs Antibody 503.0 (11.5-1000) 08/25/23 10:57 Human Metapneumovir PCR Not detected (NOT DETECT) 08/25/23 17:28 Influenza A (H1) PCR Not detected (NOT DETECT) 08/25/23 17:28 Influ A (H1/09) PCR Not detected (NOT DETECT) 08/25/23 17:28 Influenza A (H3) PCR Not detected (NOT DETECT) 08/25/23 17:28 Influenza Type A (PCR) Not detected (NOT DETECT) 08/25/23 17:28 Influenza Type B (PCR) Not detected (NOT DETECT) 08/25/23 17:28 M. pneumoniae (PCR) Not detected (NOT DETECT) 08/25/23 17:28 Parainfluenza 1 (PCR) Not detected (NOT DETECT) 08/25/23 17:28 Parainfluenza 2 (PCR) Not detected (NOT DETECT) 08/25/23 17:28 Parainfluenza 3 (PCR) Not detected (NOT DETECT) 08/25/23 17:28 Parainfluenza 4 (PCR) Not detected (NOT DETECT) 08/25/23 17:28 RSV Type A (PCR) Not detected (NOT DETECT) 08/25/23 17:28 RSV Type B (PCR) Not detected (NOT DETECT) 08/25/23 17:28 Entero/Rhino (PCR) Not detected (NOT DETECT) 08/25/23 17:28 SARS-CoV-2 (PCR) Not detected (NOT DETECT) 08/25/23 17:28 A&P Assessment and plan (1) Hypercapnic respiratory failure: Qualifiers: Chronicity: acute on chronic Qualified Code(s): J96.22 - Acute and chronic respiratory failure with hypercapnia (2) NATHALY (obstructive sleep apnea): (3) Acute encephalopathy: (4) Parkinsonian tremor: (5) Hypotension: Plan # Altered mental status likely secondary to hypotension-better since admission # Some amount of altered mental status could be secondary he was hypercapnia # Features of parkinsonism with resting tremors-which are controlled previously with low-dose carbidopa -CT head/MRI brain-within normal limits -Electrolytes within normal limits -Ammonia 31 -No evidence of infection during admission-so far cultures negative-still he completed 7 days of vancomycin/meropenem today -There has been evidence of worsening leukocytosis-after starting steroids; less likely secondary to infection as he was on vancomycin and meropenem and there is no evidence of infection-will monitor WBC count # Hypercapnic respiratory failure in patient with underlying COPD/CHF/CAD/NATHALY/obesity hypoventilation syndrome #COPD patient with chronic smoking history 1 pack/day 50 years-quit August 2020- restarted smoking 1-2 cigarettes a day #Coexisting CHF, CAD, atrial fibrillation -02/19/21 PFT: Suggestive of severe airflow obstruction with FEV1 46% predicted. Is no significant postbronchodilator response.Lung volumes are consistent with air trapping with RV 164%.Gas exchange (DLCO) is mildly reduced 65%. -As outpatient he was using symbicort and spiriva. Also using Roflumilast 250 MCG p.o. daily -Currently not in exacerbation-will continue albuterol every 4 hours as needed; -Continue BiPAP at nighttime # Hypotension during hemodialysis # Suspected adrenal insufficiency-parkinsonism induced dysautonomia -Most recent echocardiogram April 2023-technically difficult study with mildly decreased LV systolic function with EF 50%. Possible mild global hypokinesis. -He was requiring low-dose Levophed -Suspect he has dysautonomia secondary to Parkinson's features-may benefit from adding midodrine # Suspect features of parkinsonism with resting tremors -Patient had severe Tremors during previous hospitalizations as well -He was on primidone-however they improved after adding low-dose carbidopa Overall goals of care were discussed with patient's ex- and his kids by hospitalist and patient was deemed DNR?DNI Patient is extremely deconditioned and will benefit from aggressive physical therapy-okay to transfer to LTAC Hemodialysis as per renal team Consult Attestations 2 Medical Necessity Statement: Still confused and requires ICU monitoring Time Spent in Patient Care: Greater than 35 minutes (>than 50% of time spent in counselling and/or direct pt care on unit) . Critical Care Time: The high probability of a clinically significant, sudden or life threatening deterioration of the patient's [nervous, respiratory, cardiac, renal] system(s) required my full and direct attention, intervention and personal management. The critical care time is as shown. This time is in addition to time spent performing any reported procedures but includes the following: [x] Data and vital sign review and interpretation [x] Patient assessment, examination and intervention [x] Documentation [x] Medication orders and management Critical Care Time (min): 60 Coding Level of Care Code Acute Code for Chg Fwd Diagnoses Acute on chronic respiratory failure with hypercapnia J96.22 Chronicity: acute on chronic NATHALY (obstructive sleep apnea) G47.33 Acute encephalopathy G93.40 Parkinsonian tremor G20.C Hypotension I95.9 Time Spent (min) 60
[2023-09-02] MEDS: artificial tears Op Soln 15 mL Btl 1 DROP OPHTHALMIC (21:14)
[2023-09-02] MEDS: enoxaparin 30 mg/0.3 mL Syringe SUBCUT (21:15)
--- NOTE | 2023-09-02 21:33 | PC.NURSE ---
At the beginning of this nurse's shift the levophed drip was running at 1 mcg/min. MAR was updated to reflect this.
[2023-09-03] VITALS (43 sets, daily range): BP systolic 66–140; BP diastolic 44–114; PULSE 82–111; RESP 9–24; TEMP 36.6; O2SAT 89–96; BMI 43.8
[2023-09-03] MEDS: morphine 10 mg/0.5 mL oral liq UD PO ×2 (00:14→23:48)
[2023-09-03] MEDS: albuterol 2.5 mg/3 mL Neb INHALATION ×4 (02:12→19:52)
[2023-09-03] MEDS: ondansetron 2 mg/ML SDV 2 mL 4 MG IVP (03:57)
[2023-09-03 04:05] LABS: Basophils # 0.1 10^3/uL (0.0-0.1); Basophils % 0.3 %; Hematocrit 39.7 % (37-53); Lymphocytes % 3.9 %; Mean Corpuscular Hemoglobin 29.3 pg (27-33); Mean Corpuscular Volume 91.5 fl (82-101); Mean Platelet Volume 10.5 fL (7.4-10.4); Monocytes # 1.5 10^3/uL (0.2-0.9); Neutrophils # 21.46 10^3/uL (1.8-7.7); Neutrophils % 87.7 %; Nucleated Red Blood Cells # 0.9 /100WBC; Nucleated Red Blood Cells % 3.5 %; Platelet Count 505 10^3/cmm (157-399); Red Blood Count 4.34 10^6/uL (3.85-5.65); Red Cell Distribution Width 15.9 % (12.1-15.1); White Blood Count 24.47 10^3/uL (3.29-11.43)
[2023-09-03 04:25] LABS: Anion Gap 29.5 (5-19); Calcium 9.8 mg/dL (8.5-10.5); Carbon Dioxide 20 mmol/L (22-29); Chloride 90 mmol/L (98-107); Creatinine Clr Calc Pharmacy 10.4999; Glomerular Filtration Rate 5.4 mL/min (90-130); Glucose 141 mg/dL (65-115); Osmolality Calculated 309 mOsm/kg (285-295); Potassium 4.5 mmol/L (3.5-5.1); Sodium 135 mmol/L (136-145)
[2023-09-03 04:34] LABS: Blood Urea Nitrogen 87 mg/dL (8-23)
[2023-09-03] MEDS: fluoxetine 20 mg Capsule 60 MG PO (05:30)
[2023-09-03] MEDS: methylPREDNISolone sod succ 40 mg/mL INJ IVP ×2 (05:31→17:58)
[2023-09-03] MEDS: norepinephrine 4 MG/250 ML BAG 7.5 MG IV (08:00)
[2023-09-03] MEDS: aspirin 81 mg EC Tablet PO (08:05)
[2023-09-03] MEDS: calcium acetate 667 mg Capsule 1334 MG PO ×3 (08:05→20:11)
[2023-09-03] MEDS: epoetin alfa 1000 Unit/0.05 mL (ESRD) 20000 UNIT SUBCUT (08:05)
[2023-09-03] MEDS: midodrine 5 mg TABLET 10 MG PO ×3 (08:05→20:11)
--- NOTE | 2023-09-03 08:08 | P.PN_ITS ---
Subjective 2 Subjective: getting hd Medications: Reviewed: Yes Vitals/I&O/Wt Last Vital Signs Temp 97.3 F L 09/04/23 00:00 Pulse 96 09/04/23 06:00 Resp 19 H 09/04/23 04:30 BP 135/59 09/04/23 04:30 Pulse Ox 95 09/04/23 04:30 O2 Del Method BiPAP 09/04/23 04:30 O2 Flow Rate 3 09/03/23 19:55 FiO2 40 09/04/23 04:30 09/03/23 09/04/23 09/04/23 22:59 06:59 14:59 Intake Total 786.25 / 1327.50 615.75 / 1943.25 Balance 786.25 / -356.50 615.75 / 259.25 Weight last 48 hrs Weight 146.482 kg Weight 146.5 kg Weight 142.598 kg Physical Exam 2 Narrative: awake ,alert answering questions Data 09/04/23 05:04 09/04/23 05:04 A&P Assessment and plan (1) ESRD (end stage renal disease): Plan 1. End-stage renal disease: On MWF schedule as patient outpatient , HD today 3. Acute on chronic respiratory failure: Secondary to sleep apnea COPD, now has pneumonia, on BIPAP 4. History of A-fib 5. aNEMIA : RENATE with HD 6. metabolic encephalopathy, improving 7. Hyperkalemia , low K diet , Patient evaluated using audiovisual cart. Time spent 20 minutes. Attestations 2 Medical Necessity Statement*: per lauren Coding Level of Care Code Acute Code for Chg Fwd Diagnoses ESRD (end stage renal disease) N18.6
--- NOTE | 2023-09-03 10:52 | PC.NURSE ---
Patient AO to self and being in hospital, following commands, tolerates being on NC. pe social director [facility]rehab awaiting bed number at this time
--- NOTE | 2023-09-03 11:18 | PC.SOCIAL ---
IMM Update pg 2 of IMM updated and reviewed w/ patient and his exwife. Copy provided and copy dated, initialed and placed in chart.
[2023-09-03] MEDS: fludrocortisone 0.1 mg Tablet 0.100000000000000006 MG PO ×2 (12:51→15:17)
[2023-09-03] MEDS: heparin, porcine 1,000 unit/mL INJ 10 mL 10000 UNIT INTRACATH (12:57)
[2023-09-03] MEDS: heparin, porcine 1,000 unit/mL INJ 10 mL 1000 UNIT IV (12:58)
--- NOTE | 2023-09-03 14:19 | PM.PN ---
Subjective Subjective: More awake and more alert today. He is complaining of heartburn. Tums did not help. Unfortunately he is requiring more Levophed for hypotension during dialysis. Vitals/I&O/Wt Last Vital Signs Temp 97.5 F L 09/02/23 19:00 Pulse 100 09/03/23 13:53 Resp 16 09/03/23 13:53 BP 101/58 09/03/23 13:00 Pulse Ox 95 09/03/23 13:53 O2 Del Method Nasal Cannula 09/03/23 13:53 O2 Flow Rate 2 09/03/23 13:53 FiO2 40 09/03/23 02:00 09/02/23 09/03/23 09/03/23 22:59 06:59 14:59 Intake Total 588.313 / 588.313 259.062 / 847.375 41.25 / 41.25 Balance 588.313 / 588.313 259.062 / 847.375 41.25 / 41.25 Weight last 48 hrs Weight 142.598 kg Weight 142.598 kg Weight 142.5 kg Physical Exam Narrative: Morbidly obese male who is off BiPAP during day and even off oxygen which is not his baseline. More alert again today Heart: Regular rate and rhythm normal S1-S2 no loud murmur Respiratory: Clear anteriorly without wheeze Abdomen morbidly obese with umbilical hernia, chronic. Normal bowel sounds no hepatosplenomegaly Extremities diffuse nonpitting edema in the lower extremities and upper extremities. Data 09/03/23 03:55 09/03/23 03:55 A&P Assessment and plan (1) Acute encephalopathy: Most likely multifactorial from respiratory failure with hypoxia & hypercarbia and possibly the effects of medications used to treat tremor that had not been renally adjusted with ESRD. The medications were initially decreased on August 27 and then he has not had any subsequently. Patient is significantly improved. (2) Hypercapnic respiratory failure: Off BiPAP I suspect IV steroids improved patient's respiratory failure. Continue to wean steroids. Discussed with Dr. Segal today Qualifiers: Chronicity: acute on chronic Qualified Code(s): J96.22 - Acute and chronic respiratory failure with hypercapnia (3) ESRD (end stage renal disease): On dialysis for 1 year Has not been able to get a fistula due to recurrent illness and hospitalization 08/29:had longer dialysis with increased fluid removal of 4 L 4/3: dailysis, 3L removed Spoke with dialysis nurse. Had not been able to remove any fluid due to hypotension when I saw her will check final results. (4) Hypertension: Now hypotension -has been on/off levaphed; t had to increase Levophed while on dialysis Continue midodrine 10 mg 3 times Add Florinef for adrenal insufficiency suspected. Qualifiers: Hypertension type: unspecified Qualified Code(s): I10 - Essential (primary) hypertension (5) Coronary artery disease: Qualifiers: Associated angina: without angina Coronary Disease-Associated Artery/Lesion type: unspecified vessel or lesion type [place] vs. transplanted heart: [place] heart Qualified Code(s): I25.10 - Atherosclerotic heart disease of [place] coronary artery without angina pectoris (6) Atrial fibrillation: Patient has been on amiodarone. Concerned whether amiodarone causing lung toxicity and worsening of respiratory failure and thus was discontinued. However if patient continues to have tachycardia may need to restart. Qualifiers: Atrial fibrillation type: unspecified Qualified Code(s): I48.91 - Unspecified atrial fibrillation (7) NATHALY (obstructive sleep apnea): (8) Fall: Qualifiers: Encounter type: subsequent encounter Qualified Code(s): W19.XXXD - Unspecified fall, subsequent encounter (9) Physical deconditioning: (10) Elevated WBC count: Well patient's WBC remains greater than 20. He has never been back to normal since admission. He has completed a 7-day course of antibiotics will like to continue to avoid antibiotics at this time and assess clinically. Qualifiers: Leukocytosis type: unspecified Qualified Code(s): D72.829 - Elevated white blood cell count, unspecified Plan Plan of care today: Initially case management said [facility] would accept him today. However, [facility] no longer has ICU beds to take the patient on pressors. I discussed with Dr. España the [facility] cardiovascular technician and he states the patient would need to be off pressors. He also felt like he did not understand why the patient would be so hypotensive. I do agree that patient Celso likely has adrenal insufficiency. Instead of a cosyntropin stim test I will treat with Florinef and await results. Continue to wean methylprednisolone. Add Florinef orally Continue midodrine 10 mg p.o. 3 times daily Wean Levophed to off as soon as possible. Maintain off IV antibiotics since patient has received 7 days of IV antibiotics with no source ever identified. white blood cell count has been elevated for quite some time. I do believe the most recent bump to 29,000 has been secondary to steroids. Note that the WBC count is improved today with initial weaning of steroids yesterday. After 24 hours without antibiotics or a fever spike will consider septic workup again. Patient was on PPI for heartburn previously will order IV today and oral to start tomorrow at 6 AM. Plan of care reviewed with Laz MATIAS extensively. Attestations Medical Necessity Statement*: Patient requires continued hospitalization due to due to hypotension requiring IV pressors for blood pressure support. He will transfer to LTAC once off Levophed. Coding Level of Care Code Acute Code for g Fwd Diagnoses Acute encephalopathy G93.40 Acute on chronic respiratory failure with hypercapnia J96.22 Chronicity: acute on chronic ESRD (end stage renal disease) N18.6 Hypertension, unspecified type I10 Hypertension type: unspecified Coronary artery disease involving [place] heart without angina pectoris, unspecified vessel or lesion type I25.10 Associated angina: without angina Coronary Disease-Associated Artery/Lesion type: unspecified vessel or lesion type [place] vs. transplanted heart: [place] heart Atrial fibrillation, unspecified type I48.91 Atrial fibrillation type: unspecified NATHALY (obstructive sleep apnea) G47.33 Fall, subsequent encounter W19.XXXD Encounter type: subsequent encounter Physical deconditioning R53.81 Leukocytosis, unspecified type D72.829 Leukocytosis type: unspecified
--- NOTE | 2023-09-03 14:29 | PC.HD ---
Pre-treatment pt's BP 85/44, Levophed gtt increased to 6 mcg/min and BP 109/58 prior to starting tx. Hypotension persisted during treatment, fluid removal goal not met, Levophed gtt at 16mcg/min by end of tx. Dr Liang updated.
[2023-09-03] MEDS: pantoprazole 40 mg SDV 80 MG IVP (15:18)
[2023-09-03] MEDS: albumin 25 G/100 ML BAG 60 G IV (15:18)
[2023-09-03] MEDS: norepinephrine 4 MG/250 ML BAG 37.5 MG IV (15:29)
[2023-09-03] MEDS: enoxaparin 30 mg/0.3 mL Syringe SUBCUT (20:11)
[2023-09-04] VITALS (36 sets, daily range): BP systolic 82–145; BP diastolic 45–76; PULSE 78–106; RESP 9–27; TEMP 36.3–36.7; O2SAT 87–96; BMI 45.0
[2023-09-04] MEDS: norepinephrine 4 MG/250 ML BAG 22.5 MG IV (00:51)
[2023-09-04] MEDS: albuterol 2.5 mg/3 mL Neb INHALATION ×4 (02:27→19:44)
[2023-09-04] MEDS: albumin 25 G/100 ML BAG 60 G IV ×2 (02:40→15:36)
[2023-09-04 05:33] LABS: Basophils # 0.1 10^3/uL (0.0-0.1); Basophils % 0.4 %; Eosinophils # 0.2 10^3/uL (0.0-0.8); Eosinophils % 0.7 %; Hematocrit 41.8 % (37-53); Lymphocytes # 0.6 10^3/uL (0.8-4.8); Lymphocytes % 2.5 %; Mean Corpuscular HGB Conc 31.6 g/dL (30-55); Mean Corpuscular Volume 91.9 fl (82-101); Mean Platelet Volume 10.5 fL (7.4-10.4); Monocytes # 2.1 10^3/uL (0.2-0.9); Monocytes % 9.1 %; Neutrophils # 19.69 10^3/uL (1.8-7.7); Neutrophils % 86.3 %; Nucleated Red Blood Cells # 1.5 /100WBC; Nucleated Red Blood Cells % 6.5 %; Platelet Count 509 10^3/cmm (157-399); Red Blood Count 4.55 10^6/uL (3.85-5.65); Red Cell Distribution Width 15.9 % (12.1-15.1); White Blood Count 22.81 10^3/uL (3.29-11.43)
[2023-09-04 05:55] LABS: Anion Gap 27.4 (5-19); Calcium 9.4 mg/dL (8.5-10.5); Carbon Dioxide 22 mmol/L (22-29); Chloride 90 mmol/L (98-107); Creatinine Clr Calc Pharmacy 13.2898; Glucose 145 mg/dL (65-115); Osmolality Calculated 308 mOsm/kg (285-295); Potassium 4.4 mmol/L (3.5-5.1); Sodium 135 mmol/L (136-145)
[2023-09-04 06:00] LABS: Blood Urea Nitrogen 84 mg/dL (8-23)
[2023-09-04] MEDS: methylPREDNISolone sod succ 40 mg/mL INJ IVP (06:20)
[2023-09-04] MEDS: pantoprazole DR 40 mg Tablet PO ×2 (06:20→22:33)
[2023-09-04] MEDS: fluoxetine 20 mg Capsule 60 MG PO (06:20)
[2023-09-04] MEDS: alum-mag-hydroxide-sime 30 mL UDC PO ×3 (09:37→20:14)
[2023-09-04] MEDS: fludrocortisone 0.1 mg Tablet 0.200000000000000011 MG PO (09:39)
[2023-09-04] MEDS: calcium acetate 667 mg Capsule 1334 MG PO ×3 (09:41→21:08)
[2023-09-04] MEDS: aspirin 81 mg EC Tablet PO (09:41)
[2023-09-04] MEDS: midodrine 5 mg TABLET 10 MG PO ×3 (09:42→21:08)
[2023-09-04] MEDS: norepinephrine 4 MG/250 ML BAG 15 MG IV (10:19)
--- NOTE | 2023-09-04 11:57 | PC.NURSE ---
Dr Toby Artis on unit rounding. Discussion regarding pain medication management and BP management at bedside. Levophed stopped per order and orders given to treat the patient and not the blood pressure. Will closely monitor. Family at bedside and updated on plan of care
--- NOTE | 2023-09-04 12:31 | P.PN_ITS ---
Subjective 2 Subjective: Patient seen sitting up in his bed. His daughter Pushpa and aunt are present. Anny MATIAS also present during rounds. Patient's only complaint is that of back pain and abdominal pain. He takes opioids on a routine basis at home. Vitals/I&O/Wt Last Vital Signs Temp 97.4 F L 09/04/23 08:00 Pulse 102 H 09/04/23 12:00 Resp 18 09/04/23 12:00 BP 87/72 09/04/23 12:00 Pulse Ox 90 09/04/23 12:00 O2 Del Method Nasal Cannula 09/04/23 12:00 O2 Flow Rate 3 09/04/23 12:00 FiO2 40 09/04/23 04:30 09/03/23 09/04/23 09/04/23 22:59 06:59 14:59 Intake Total 786.25 / 1327.50 615.75 / 1943.25 218.250 / 218.250 Balance 786.25 / -356.50 615.75 / 259.25 218.250 / 218.250 Weight last 48 hrs Weight 146.482 kg Weight 146.5 kg Weight 142.598 kg Physical Exam 2 Narrative: Patient has remained on Levophed these last 2 days. I DOUBT THE BP CUFF READINGS. HE IS ALERT ORIENTED AND BACK TO HIS NORMAL MENTATION AND INTERACTIONS. I CAN PAPLATE A RADIAL AND PEDAL PULSE. His SBP HAS to be greater than 90. Morbidly obese male who is off BiPAP for 2 days now. Heart: Regular rate and rhythm normal S1-S2 no loud murmur Respiratory: Clear anteriorly without wheeze Abdomen morbidly obese with umbilical hernia, chronic. Normal bowel sounds no hepatosplenomegaly Extremities diffuse nonpitting edema in the lower extremities and upper extremities. Data 09/04/23 05:04 09/04/23 05:04 A&P Assessment and plan (1) Hypercapnic respiratory failure: Off BiPAP for 2 days now during the day. I suspect IV steroids improved patient's respiratory failure. Continue to wean steroids. Today changed to oral. Prednisone 20 mg p.o. twice daily Qualifiers: Chronicity: acute on chronic Qualified Code(s): J96.22 - Acute and chronic respiratory failure with hypercapnia (2) ESRD (end stage renal disease): On dialysis for 1 year Has not been able to get a fistula due to recurrent illness and hospitalization 08/29:had longer dialysis with increased fluid removal of 4 L 08/31: dailysis, 3L removed /5 dialysis, 1.5 L removed The limiting factor has been the patient's documented hypotension as seen in my physical exam I do not believe he is significantly hypotensive. He is awake alert oriented back to his mental status normally I can feel radial and pedal pulses it is not possible for his blood pressure to be less than 90. (3) Hypertension: Now hypotension -stop Levophed as I do not believe the blood pressure cuff readings. Continue midodrine 10 mg 3 times Add Florinef for adrenal insufficiency suspected. Qualifiers: Hypertension type: unspecified Qualified Code(s): I10 - Essential (primary) hypertension (4) Coronary artery disease: Qualifiers: Associated angina: without angina Coronary Disease-Associated Artery/Lesion type: unspecified vessel or lesion type [place] vs. transplanted heart: [place] heart Qualified Code(s): I25.10 - Atherosclerotic heart disease of [place] coronary artery without angina pectoris (5) Atrial fibrillation: Patient has been on amiodarone. Concerned whether amiodarone causing lung toxicity and worsening of respiratory failure and thus was discontinued. However if patient continues to have tachycardia may need to restart. Qualifiers: Atrial fibrillation type: unspecified Qualified Code(s): I48.91 - Unspecified atrial fibrillation (6) NATHALY (obstructive sleep apnea): CPAP or BiPAP at night. (7) Fall: No complications from this fall. Qualifiers: Encounter type: subsequent encounter Qualified Code(s): W19.XXXD - Unspecified fall, subsequent encounter (8) Physical deconditioning: PT OT ordered. (9) Elevated WBC count: Patient initially presented with an elevated white count and then had a white count greater than 20 for quite some time despite a 7-day course of antibiotics which are now discontinued. The white blood cell count grew to a maximum of 29,000 and most likely due to steroids. As I have weaned the steroids the white blood cell count is progressively declining. Qualifiers: Leukocytosis type: unspecified Qualified Code(s): D72.829 - Elevated white blood cell count, unspecified (10) Acute encephalopathy: Most likely multifactorial from respiratory failure with hypoxia & hypercarbia and possibly the effects of medications used to treat tremor that had not been renally adjusted with ESRD. The medications were initially decreased on August 27 and then he has not had any subsequently. Patient is at baseline mentation Plan Plan of care today: * This is a challenging case since we have been treating his blood pressure by the numbers despite his clinical status. I would recommend treating the patient clinically * I will discuss with nephrology about this. * He had been accepted at [facility] however they cannot accept the patient on a pressor IV. * I am hopeful that he remains clinically stable and I would recommend discharge to SNF early next week. * Yesterday I had spoken with Dr. España the pool lifeguard at [facility]. He states of his 20 to 30 years of practice he has not seen anyone with such a low blood pressure while they are on albumin and both types of corticosteroids. I would agree with this statement and that is another reason why I do not believe our blood pressure cuff readings. * I would hate to have to use an arterial line to prove his real blood pressure. * Continue to wean methylprednisolone. * Continue Florinef orally * Continue midodrine 10 mg p.o. 3 times daily * Stop Levophed * Maintain off IV antibiotics since patient has received 7 days of IV antibiotics with no source ever identified. * white blood cell count has been elevated for quite some time. The maximum white blood cell count recorded is 29K which I believe that bump was due to steroids. Please note that the WBC count has slowly decreased with the weaning of steroids. * PPI twice daily was restarted for his severe heartburn * Plan of care reviewed with Anny MATIAS extensively. Attestations 2 Medical Necessity Statement*: Patient requires continued hospitalization for medical stablization. Coding Level of Care Code Acute Code for Chg Fwd Diagnoses Acute on chronic respiratory failure with hypercapnia J96.22 Chronicity: acute on chronic ESRD (end stage renal disease) N18.6 Hypertension, unspecified type I10 Hypertension type: unspecified Coronary artery disease involving [place] heart without angina pectoris, unspecified vessel or lesion type I25.10 Associated angina: without angina Coronary Disease-Associated Artery/Lesion type: unspecified vessel or lesion type [place] vs. transplanted heart: [place] heart Atrial fibrillation, unspecified type I48.91 Atrial fibrillation type: unspecified NATHALY (obstructive sleep apnea) G47.33 Fall, subsequent encounter W19.XXXD Encounter type: subsequent encounter Physical deconditioning R53.81 Leukocytosis, unspecified type D72.829 Leukocytosis type: unspecified Acute encephalopathy G93.40
--- NOTE | 2023-09-04 13:36 | P.PN_ITS ---
Subjective 2 Subjective: pressors tuned off SBP in 110's Medications: Reviewed: Yes Vitals/I&O/Wt Last Vital Signs Temp 97.4 F L 09/04/23 08:00 Pulse 90 09/04/23 13:19 Resp 16 09/04/23 13:17 BP 87/72 09/04/23 12:00 Pulse Ox 94 09/04/23 13:17 O2 Del Method Nasal Cannula 09/04/23 13:17 O2 Flow Rate 2 09/04/23 13:17 FiO2 40 09/04/23 04:30 09/03/23 09/04/23 09/04/23 22:59 06:59 14:59 Intake Total 786.25 / 1327.50 615.75 / 1943.25 218.250 / 218.250 Balance 786.25 / -356.50 615.75 / 259.25 218.250 / 218.250 Weight last 48 hrs Weight 146.482 kg Weight 146.5 kg Weight 142.598 kg Physical Exam 2 Narrative: awake , alert no distress S1S2 RRR per report Lungs clear per report no edema Data 09/04/23 05:04 09/04/23 05:04 A&P Assessment and plan (1) ESRD (end stage renal disease): Plan 1. End-stage renal disease: On MWF schedule as patient outpatient , HD done wednesday , UF limited due to low bPs 3. Acute on chronic respiratory failure: Secondary to sleep apnea COPD, now has pneumonia, on BIPAP 4. History of A-fib 5. aNEMIA : RENATE with HD 6. metabolic encephalopathy, improving 7. Hyperkalemia , low K diet , 8 MBD : add renvela 9. Hypotension : suspect inaccurate readings , Pt alert and oriented , pressors turned off , BP currently in 110's , - on steroids and IV albumin and Midodrine , weaning steroids Patient evaluated using audiovisual cart. Time spent 20 minutes. Attestations 2 Medical Necessity Statement*: per lauren Coding Level of Care Code Acute Code for Chg Fwd Diagnoses ESRD (end stage renal disease) N18.6
[2023-09-04] MEDS: morphine IR 15 mg Tablet PO (13:37)
[2023-09-04] MEDS: sevelamer 800 mg Tablet PO ×2 (15:26→21:08)
[2023-09-04] MEDS: predniSONE 20 mg Tablet PO (17:12)
[2023-09-04] MEDS: enoxaparin 30 mg/0.3 mL Syringe SUBCUT (21:09)
[2023-09-05] VITALS (63 sets, daily range): BP systolic 59–146; BP diastolic 31–82; PULSE 69–113; RESP 12–29; TEMP 36.2–36.7; O2SAT 86–98; BMI 44.1
[2023-09-05] MEDS: albuterol 2.5 mg/3 mL Neb INHALATION ×4 (01:51→20:14)
[2023-09-05] MEDS: albumin 25 G/100 ML BAG 60 G IV (03:38)
[2023-09-05] MEDS: alum-mag-hydroxide-sime 30 mL UDC PO ×2 (03:48→17:08)
[2023-09-05 04:33] LABS: Basophils # 0.1 10^3/uL (0.0-0.1); Basophils % 0.4 %; Hematocrit 41.6 % (37-53); Lymphocytes # 0.9 10^3/uL (0.8-4.8); Lymphocytes % 3.4 %; Mean Corpuscular HGB Conc 31.5 g/dL (30-55); Mean Corpuscular Hemoglobin 28.5 pg (27-33); Mean Corpuscular Volume 90.4 fl (82-101); Mean Platelet Volume 10.6 fL (7.4-10.4); Monocytes # 3.3 10^3/uL (0.2-0.9); Monocytes % 12.1 %; Neutrophils # 23.04 10^3/uL (1.8-7.7); Neutrophils % 83.1 %; Nucleated Red Blood Cells # 1.3 /100WBC; Nucleated Red Blood Cells % 4.7 %; Platelet Count 490 10^3/cmm (157-399); Red Cell Distribution Width 15.7 % (12.1-15.1); White Blood Count 27.68 10^3/uL (3.29-11.43)
[2023-09-05 05:01] LABS: Calcium 9.1 mg/dL (8.5-10.5); Carbon Dioxide 21 mmol/L (22-29); Chloride 90 mmol/L (98-107); Creatinine Clr Calc Pharmacy 11.2452; Glomerular Filtration Rate 5.8 mL/min (90-130); Glucose 127 mg/dL (65-115); Sodium 135 mmol/L (136-145)
[2023-09-05 05:17] LABS: Osmolality Calculated 321 mOsm/kg (285-295)
[2023-09-05 05:18] LABS: Blood Urea Nitrogen 124 mg/dL (8-23)
[2023-09-05] MEDS: fluoxetine 20 mg Capsule 60 MG PO (06:33)
[2023-09-05] MEDS: midodrine 5 mg TABLET 10 MG PO ×3 (09:33→21:19)
[2023-09-05] MEDS: aspirin 81 mg EC Tablet PO (09:34)
[2023-09-05] MEDS: sevelamer 800 mg Tablet PO ×3 (09:34→21:21)
[2023-09-05] MEDS: predniSONE 20 mg Tablet PO ×2 (09:34→17:08)
[2023-09-05] MEDS: pantoprazole DR 40 mg Tablet PO ×2 (09:34→17:08)
[2023-09-05] MEDS: calcium acetate 667 mg Capsule 1334 MG PO ×3 (09:34→21:21)
[2023-09-05] MEDS: fludrocortisone 0.1 mg Tablet 0.200000000000000011 MG PO (09:53)
--- NOTE | 2023-09-05 10:55 | P.PN_ITS ---
Subjective 2 Subjective: on 2L NC Mental status improved Medications: Reviewed: Yes Vitals/I&O/Wt Last Vital Signs Temp 97.5 F L 09/05/23 08:00 Pulse 94 09/05/23 09:00 Resp 22 H 09/05/23 09:00 BP 128/57 09/05/23 09:00 Pulse Ox 93 09/05/23 09:00 O2 Del Method Nasal Cannula 09/05/23 08:00 O2 Flow Rate 2 09/05/23 08:00 FiO2 40 09/04/23 22:56 09/04/23 09/05/23 09/05/23 22:59 06:59 14:59 Intake Total 340 / 558.250 160 / 718.250 Balance 340 / 558.250 160 / 718.250 Weight last 48 hrs Weight 143.698 kg Weight 146.482 kg Weight 146.5 kg Data 09/05/23 04:16 09/05/23 04:16 A&P Assessment and plan (1) ESRD (end stage renal disease): Plan 1. End-stage renal disease: On MWF schedule as patient outpatient , HD today 3. Acute on chronic respiratory failure: Secondary to sleep apnea COPD, now has pneumonia, on BIPAP 4. History of A-fib 5. aNEMIA : RENATE with HD 6. metabolic encephalopathy, improving 7. Hyperkalemia , low K diet , improved 8 MBD : add renvela 9. Hypotension : improved , on midodrine - on steroids and IV albumin and Midodrine , weaning steroids Patient evaluated using audiovisual cart. Time spent 20 minutes. Attestations 2 Medical Necessity Statement*: per lauren Coding Level of Care Code Acute Code for Chg Fwd Diagnoses ESRD (end stage renal disease) N18.6
--- NOTE | 2023-09-05 13:52 | PC.PT ---
Pt declined PT services at 1130 am due to c/o back pain and fatigue. Came back at 1345 to find pt asleep with bipap on. Nursing instructed PT to leave him alone. PT will be back in the morning.
[2023-09-05] MEDS: acetaminophen 325 mg Tablet PO (16:11)
--- NOTE | 2023-09-05 16:54 | P.PN_ITS ---
Subjective 2 Subjective: Awake alert oriented Complains about congestion in the throat And back and leg pain Vitals/I&O/Wt Last Vital Signs Temp 97.5 F L 09/05/23 08:00 Pulse 69 09/05/23 16:23 Resp 17 09/05/23 16:00 BP 128/82 09/05/23 16:00 Pulse Ox 95 09/05/23 16:23 O2 Del Method Nasal Cannula 09/05/23 13:10 O2 Flow Rate 2 09/05/23 13:10 FiO2 40 09/05/23 16:23 09/05/23 09/05/23 09/05/23 06:59 14:59 22:59 Intake Total 160 / 718.250 Balance 160 / 718.250 Weight last 48 hrs Weight 143.698 kg Weight 146.482 kg Physical Exam 2 Narrative: Morbidly obese male who is off BiPAP for 2 days now except for at night Heart: Regular rate and rhythm normal S1-S2 no loud murmur Respiratory: Clear anteriorly without wheeze Abdomen morbidly obese with umbilical hernia, chronic. Normal bowel sounds no hepatosplenomegaly Extremities diffuse nonpitting edema in the lower extremities and upper extremities. Data 09/05/23 04:16 09/05/23 04:16 A&P Assessment and plan (1) Hypercapnic respiratory failure: Off BiPAP for 2 days now during the day. I suspect IV steroids improved patient's respiratory failure. Continue to wean steroids. Continue prednisone 20 mg p.o. twice daily Qualifiers: Chronicity: acute on chronic Qualified Code(s): J96.22 - Acute and chronic respiratory failure with hypercapnia (2) ESRD (end stage renal disease): On dialysis for 1 year Has not been able to get a fistula due to recurrent illness and hospitalization 08/29:had longer dialysis with increased fluid removal of 4 L 08/31: dailysis, 3L removed 4/5 dialysis, 1.5 L removed Patient has been hypotensive and required Levophed periodically. Discussed with nephrology to attempt short treatment today without Levophed. (3) Hypertension: Now hypotension -blood pressure cuff readings did not seem accurate due to radial and pedal pulses. Patient has remained alert and oriented now for 3 days. Continue midodrine 10 mg 3 times Added Florinef for adrenal insufficiency suspected. Qualifiers: Hypertension type: unspecified Qualified Code(s): I10 - Essential (primary) hypertension (4) Coronary artery disease: Qualifiers: Associated angina: without angina Coronary Disease-Associated Artery/Lesion type: unspecified vessel or lesion type [place] vs. transplanted heart: [place] heart Qualified Code(s): I25.10 - Atherosclerotic heart disease of [place] coronary artery without angina pectoris (5) Atrial fibrillation: Patient has been on amiodarone. Concerned whether amiodarone causing lung toxicity and worsening of respiratory failure and thus was discontinued. However if patient continues to have tachycardia may need to restart. Qualifiers: Atrial fibrillation type: unspecified Qualified Code(s): I48.91 - Unspecified atrial fibrillation (6) NATHALY (obstructive sleep apnea): CPAP or BiPAP at night. (7) Fall: No complications from this fall. Qualifiers: Encounter type: subsequent encounter Qualified Code(s): W19.XXXD - Unspecified fall, subsequent encounter (8) Physical deconditioning: PT OT ordered. (9) Elevated WBC count: Patient initially presented with an elevated white count and then had a white count greater than 20 for quite some time despite a 7-day course of antibiotics which are now discontinued. The white blood cell count grew to a maximum of 29,000 and most likely due to steroids. As I have weaned the steroids the white blood cell count is progressively declining. Qualifiers: Leukocytosis type: unspecified Qualified Code(s): D72.829 - Elevated white blood cell count, unspecified (10) Acute encephalopathy: Most likely multifactorial from respiratory failure with hypoxia & hypercarbia and possibly the effects of medications used to treat tremor that had not been renally adjusted with ESRD. The medications were initially decreased on August 27 and then he has not had any subsequently. Patient is at baseline mentation Plan Plan of care today: * Dialysis per nephrology * Patient can likely go to floor today or tomorrow * Patient's respiratory status has improved enough that he will likely to a local SNF and not have to go to [facility] [place] Attestations 2 Medical Necessity Statement*: Continued hospitalization needed for medical stability prior to discharge to SNF Coding Level of Care Code Acute Code for Chg Fwd Diagnoses Acute on chronic respiratory failure with hypercapnia J96.22 Chronicity: acute on chronic ESRD (end stage renal disease) N18.6 Hypertension, unspecified type I10 Hypertension type: unspecified Coronary artery disease involving [place] heart without angina pectoris, unspecified vessel or lesion type I25.10 Associated angina: without angina Coronary Disease-Associated Artery/Lesion type: unspecified vessel or lesion type [place] vs. transplanted heart: [place] heart Atrial fibrillation, unspecified type I48.91 Atrial fibrillation type: unspecified NATHALY (obstructive sleep apnea) G47.33 Fall, subsequent encounter W19.XXXD Encounter type: subsequent encounter Physical deconditioning R53.81 Leukocytosis, unspecified type D72.829 Leukocytosis type: unspecified Acute encephalopathy G93.40
[2023-09-05] MEDS: atorvastatin 40 mg Tablet PO (17:08)
[2023-09-05 17:45] LABS: Fungitell 1-3-B Glucan Assay 95 pg/mL; Interpretation POSITIVE
[2023-09-05] MEDS: heparin, porcine 1,000 unit/mL INJ 10 mL 10000 UNIT INTRACATH (18:02)
[2023-09-05] MEDS: albumin 12.5 GM/50 ML VIAL IV ×2 (18:02→18:39)
[2023-09-05] MEDS: heparin, porcine 1,000 unit/mL INJ 10 mL 1000 UNIT IV (18:03)
[2023-09-05] MEDS: norepinephrine 4 MG/250 ML BAG 7.5 MG IV (19:15)
--- NOTE | 2023-09-05 20:11 | PC.NURSE ---
Levophed/Dialysis: Dr. Landon notified of increasing Levophed requirements @2009. BP cycling Q5M, pt is lethargic- placed on BiPAP @2013.
[2023-09-05] MEDS: enoxaparin 30 mg/0.3 mL Syringe SUBCUT (21:23)
[2023-09-05] MEDS: lactulose oral liq 20 gm/30 mL UDC 30 GM PO (21:24)
--- NOTE | 2023-09-05 21:57 | PC.HD ---
Hypotension during treatment, as low as71/49, persisted in spite of decreased machine temp, UF off, and albumin infusing at 2ml/min, Dr Ferris does not want to restart Levophed, and treatment had to be stopped. Dr Landon ([facility] hospitalist) ntdf by [place] MATIAS with order for Levophed. Treatment resumed once Levophed was running and hypotension resolved, though Levophed ultimately titrated to 16mcg per [employer] and pt continued to drop BP intermittently so UF had to be stopped. Pt sleeping but denied symptoms throughout treatment. Dr Liang updated throughout treatment.
[2023-09-05] MEDS: morphine IR 15 mg Tablet PO (23:29)
--- NOTE | 2023-09-05 23:38 | PC.NURSE ---
Addendum entered by Julita Kyle RN 09/06/23 01:27: Called Dr. Landon @[id number] to update that ultrasound is not in the building and will not be here till 05. Original Note: L. Calf Pain: Pt reporting 8/10 pain the the L. lower leg. The lower leg is tender to the touch. Both calves are pale, cool, and 40cm diameter. 1+ palpable pulse in R. Foot. Unable to feel pulse in L. foot- pulse heard with doppler. PO Morphine given for pain. Notified Dr. Landon @[id number]. New order to warm bilateral legs with heated towels and reassess pulses.
[2023-09-06] VITALS (49 sets, daily range): BP systolic 42–113; BP diastolic 30–70; PULSE 59–117; RESP 12–29; TEMP 36.7–36.9; O2SAT 78–97
--- NOTE | 2023-09-06 01:26 | USCV_ITS ---
Artie Quiles Age: 68 Gender: M : 1955 Exam Date: 09/06/2023 08:37 Ordering Phys: Moisés Landon MD Technologist: DULCE MARIA [place] [facility] [place]: swelling HISTORY: Lower extremity swelling. PROCEDURES: The venous duplex Doppler examination of both lower extremities was performed in the standard fashion. The following venous structures were evaluated: common femoral vein, profunda vein, proximal portion of the greater saphenous vein, superficial femoral vein, and the popliteal vein. In addition, the posterior tibial and peroneal trunk were evaluated. FINDINGS: Appears negative for lower extremity DVT. Normal compression, color, Doppler and augmentation in both lower extremities. CONCLUSIONS No DVT bilateral lower extremities. Dr. Graciela Eddy DO (Electronically Signed) Final Date: 06 September 2023 09:10 S
--- NOTE | 2023-09-06 02:05 | PC.NURSE ---
Refusing Turning: Pt is refusing to turn but will reposition arms and legs. Discussed importance of turning related to skin breakdown, pt verbalized understanding.
[2023-09-06] MEDS: albuterol 2.5 mg/3 mL Neb INHALATION ×2 (02:41→14:56)
[2023-09-06 03:01] LABS: Basophils # 0.2 10^3/uL (0.0-0.1); Basophils % 0.4 %; Hematocrit 38.8 % (37-53); Lymphocytes # 1.1 10^3/uL (0.8-4.8); Lymphocytes % 2.7 %; Mean Corpuscular HGB Conc 31.7 g/dL (30-55); Mean Corpuscular Hemoglobin 28.6 pg (27-33); Mean Corpuscular Volume 90.2 fl (82-101); Monocytes % 9.6 %; Neutrophils # 35.32 10^3/uL (1.8-7.7); Neutrophils % 85.6 %; Nucleated Red Blood Cells # 0.7 /100WBC; Nucleated Red Blood Cells % 1.7 %; Platelet Count 433 10^3/cmm (157-399); Red Cell Distribution Width 15.5 % (12.1-15.1)
[2023-09-06 03:17] LABS: Slide Review Slide Review Perform
[2023-09-06 03:26] LABS: Ammonia 59 umol/L (16-60); Lactate (Lactic Acid level) 1.4 mmol/L (0.5-2.2)
[2023-09-06 03:28] LABS: Alanine Aminotransferase 33 U/L (0-41); Albumin Level 3.9 g/dL (3.5-5.2); Alkaline Phosphatase 125 U/L (40-130); Anion Gap 22.7 (5-19); Aspartate Amino Transferase 32 U/L (0-40); C Reactive Protein 147.6 mg/L (0.0-4.9); Calcium 8.9 mg/dL (8.5-10.5); Carbon Dioxide 25 mmol/L (22-29); Chloride 95 mmol/L (98-107); Creatinine Clr Calc Pharmacy 14.4508; Globulin 3.3 g/dL (1.3-4.6); Glomerular Filtration Rate 7.8 mL/min (90-130); Glucose 104 mg/dL (65-115); Magnesium 2.6 mg/dL (1.7-2.3); Osmolality Calculated 315 mOsm/kg (285-295); Phosphorus 5.1 mg/dL (2.5-4.5); Potassium 4.7 mmol/L (3.5-5.1); Sodium 138 mmol/L (136-145); Total Bilirubin 0.6 mg/dL (0.15-1.2); Total Protein 7.2 g/dL (6.6-8.7)
[2023-09-06 03:30] LABS: Blood Urea Nitrogen 93 mg/dL (8-23)
[2023-09-06 03:36] LABS: NT Pro B Type Natriuretic Pept 4237 pg/mL (0-125); Procalcitonin 0.75 ng/mL (0-0.5)
[2023-09-06 03:47] LABS: Creatine Phosphokinase 255 U/L (39-308)
[2023-09-06 04:22] LABS: ABG PCO2 41.4 mmHg (35-45); ABG PH Result 7.36 (7.35-7.45); Arterial Blood Gas Hematocrit 39.9 % (42-52); Base Excess ABG -2.4 mmol/L (-2.0-2.0); Blood Gas Allen Test Pos; Blood Gas Sample Site Radial, left; Blood Gas Sample Type Arterial; HCO3 ABG 23.1 mmol/L (22-26); Oxygen Device BIPAP; PO2 ABG 77.3 mmHg (80.0-100.0); PO2 FiO2 Ratio Arterial Blood 0
[2023-09-06] MEDS: ondansetron 2 mg/ML SDV 2 mL 4 MG IVP ×2 (04:35→08:47)
[2023-09-06] MEDS: alum-mag-hydroxide-sime 30 mL UDC PO ×2 (04:42→11:12)
[2023-09-06] MEDS: fluoxetine 20 mg Capsule 60 MG PO (05:40)
[2023-09-06] MEDS: morphine IR 15 mg Tablet PO (05:40)
--- NOTE | 2023-09-06 06:51 | CTR_ITS ---
PROCEDURE INFORMATION: Exam: CT Chest Without Contrast; Diagnostic Exam date and time: 09/06/2023 3:42 PM Age: 68 years old Clinical indication: Abdominal pain; Generalized; Other: SOB; Prior surgery; Surgery date: 6+ months; Surgery type: Heart stent; Additional info: AMS, abd pain TECHNIQUE: Imaging protocol: Diagnostic computed tomography of the chest without contrast. Radiation optimization: All CT scans at this facility use at least one of these dose optimization techniques: automated exposure control; mA and/or kV adjustment per patient size (includes targeted exams where dose is matched to clinical indication); or iterative reconstruction. COMPARISON: [place] [id number] 08/26/2023 1:14 PM RADIATION DOSE METRICS: Total DLP (mGy-cm): 1522.99 FINDINGS: Tubes, catheters and devices: Central venous catheter tip terminates at the cavoatrial junction. Lungs: Bilateral lower lobe pneumonia, left worse than right. There are emphysematous changes in the lungs.Multivessel atherosclerotic disease which involves the coronary arteries. There are pulmonary parenchymal calcifications consistent with remote granulomatous organism exposure. Pleural spaces: Unremarkable. No pneumothorax. No pleural effusion. Heart: Unremarkable. No cardiomegaly. No pericardial effusion. Lymph nodes: There are calcified mediastinal and perihilar lymph nodes consistent with prior granulomatous exposure. Vasculature: Unremarkable. No aortic aneurysm. Bones/joints: Old left rib fracture sites. Soft tissues: Unremarkable. COMMENTS: The presence of pulmonary emphysema on CT is an independent risk factor for lung cancer. In the absence of a history or active diagnosis of lung cancer, it is recommended that this patient with emphysema be evaluated for enrollment in a low dose CT lung cancer screening program. PROCEDURE INFORMATION: Exam: CT Abdomen And Pelvis Without Contrast Exam date and time: 09/06/2023 3:42 PM Age: 68 years old Clinical indication: Abdominal pain; Generalized; Other: SOB; Prior surgery; Surgery date: 6+ months; Surgery type: Heart stent; Additional info: AMS, abd pain TECHNIQUE: Imaging protocol: Computed tomography of the abdomen and pelvis without contrast. Radiation optimization: All CT scans at this facility use at least one of these dose optimization techniques: automated exposure control; mA and/or kV adjustment per patient size (includes targeted exams where dose is matched to clinical indication); or iterative reconstruction. COMPARISON: [place] [id number] 08/26/2023 1:14 PM RADIATION DOSE METRICS: Total DLP (mGy-cm): 1522.99 FINDINGS: Coronary arteries: Multivessel atherosclerotic disease which involves the coronary arteries. Liver: Cystic hepatic lesions have benign features the larger of which measures 13 mm in the right hepatic lobe. Incidental splenic and hepatic calcified granulomata. Gallbladder and bile ducts: There is sludge and or small noncalcified stones in the gallbladder. Pancreas: [id number] fatty atrophy of the pancreas. Spleen: Normal. No splenomegaly. Adrenal glands: Normal. No mass. Kidneys and ureters: Punctate nonobstructing left renal calculus. Subcentimeter left renal cyst has benign features. Stomach and bowel: Colonic constipation is present. Appendix: No evidence of appendicitis. Intraperitoneal space: Unremarkable. No free air. No significant fluid collection. Vasculature: Unremarkable. No abdominal aortic aneurysm. Lymph nodes: Unremarkable. No enlarged lymph nodes. Urinary bladder: Unremarkable as visualized. Reproductive: There are calcifications in the prostate gland. Bones/joints: There are degenerative changes in the visualized spine. Soft tissues: Small fat containing umbilical hernia. CT/[place] [id number] IMPRESSION: 1. Bilateral lower lobe pneumonia, left worse than right. 2. There are emphysematous changes in the lungs. 3. Multivessel atherosclerotic disease which involves the coronary arteries. IMPRESSION: 1. There is sludge and or small noncalcified stones in the gallbladder. 2. Colonic constipation is present. COMMENTS: Consistent with the [employer]'s Incidental Findings Committee white paper (J Am Lowell Radiol 2018): Any incidental renal lesion less than 1 cm or classified as too small to characterize, or any incidental cystic renal lesion characterized as simple-appearing, is likely benign. No follow-up imaging is recommended for these lesions per consensus recommendations based on imaging criteria.
--- NOTE | 2023-09-06 07:00 | XR_ITS ---
WS: [id number] PORTABLE CHEST HISTORY: sob COMPARISON: 05/17/2023 Large bore catheter terminates at the caval atrial junction. Lungs are slightly hyperexpanded. Increasing opacifications throughout the lungs. This is predominant ly interstitial thickening. Slight elevation of the LEFT hemidiaphragm. Partial obscuration LEFT diap hragm. LEFT basilar atelectasis or pleural thickening and scar. Cardiac size: Mildly enlarged cardiac silhouette. Mediastinum/Aorta: Mild atherosclerosis aorta. No osseous abnormality seen. IMPRESSION: 1. Cardiomegaly with bilateral interstitial thickening and opacifications. Opacifications and thicke az may be due to fluid overload or developing pneumonia. 2. No pneumothorax.
--- NOTE | 2023-09-06 08:46 | PM.PN ---
Subjective Subjective: on 3L nc Medications: Reviewed: Yes Vitals/I&O/Wt Last Vital Signs Temp 98.0 F 09/06/23 04:27 Pulse 108 H 09/06/23 08:30 Resp 27 H 09/06/23 08:30 BP 69/43 09/06/23 08:30 Pulse Ox 90 09/06/23 08:30 O2 Del Method Nasal Cannula 09/06/23 06:00 O2 Flow Rate 3 09/06/23 06:00 FiO2 40 09/06/23 04:00 09/05/23 09/06/23 09/06/23 22:59 06:59 14:59 Intake Total 1301.875 / 1301.875 201.875 / 1503.750 Output Total 1114 / 1114 0 / 1114 Balance 187.875 / 187.875 201.875 / 389.750 Weight last 48 hrs Weight 145.195 kg Weight 143.5 kg Weight 143.698 kg Physical Exam Narrative: awake , alert no distress S1S2 RRR per report Lungs clear per report no edema Data 09/06/23 02:30 09/06/23 02:30 Micro: Microbiology 09/06/23 08:11 Blood Culture - Preliminary Blood SPECIMEN COLLECTED 09/06/23 08:20 Blood Culture - Preliminary Blood SPECIMEN COLLECTED A&P Assessment and plan (1) ESRD (end stage renal disease): Plan 1. End-stage renal disease: On [facility] schedule as patient outpatient , s/p HD yesterday 3. Acute on chronic respiratory failure: Secondary to sleep apnea COPD, now has pneumonia, on BIPAP 4. History of A-fib 5. aNEMIA : RENATE with HD 6. metabolic encephalopathy, improving 7. Hyperkalemia , low K diet , improved 8 MBD : add renvela 9. Hypotension : improved ,s/p pressors, on midodrine - on steroids and IV albumin and Midodrine , weaning steroids Patient evaluated using audiovisual cart. Time spent 20 minutes. Attestations Medical Necessity Statement*: per medicine Coding Level of Care Code Acute Code for Chg Fwd Diagnoses ESRD (end stage renal disease) N18.6
[2023-09-06] MEDS: micafungin 150 MG in sodium chloride 0.9% (100 ml) 100 ML 100 MG IV (08:47)
[2023-09-06 08:54] LABS: Erythrocyte Sedimentation Rate 71 mm/hr (0-10)
--- NOTE | 2023-09-06 09:30 | USCV_ITS ---
Artie Quiles Age: 68 Gender: M : 1955 Exam Date: 09/06/2023 08:54 Ordering Phys: Moisés Landon MD Technologist: DULCE MARIA Exam Location: [facility] Indication: Cold left leg Risk Factors: Previous Vascular Surgery: RIGHT LEFT BP: 76.00 / 47.00 BP: 74.00/ 43.00 Waveform Velocity (cm/s) Velocity (cm/s) Waveform Triphasic 70.3 Iliac Prox 74.5 Triphasic Triphasic 72.5 Iliac Mid 75.6 Triphasic Triphasic Iliac Distal Triphasic 80.3 65.2 Triphasic 125.0 INVENTORY PLANNER 87.0 Triphasic Triphasic 62.0 SFA Prox 55.0 Triphasic Triphasic 111.0 SFA Mid 19.0 Monophasic Triphasic 54.0 SFA Dist 37.0 Monophasic Monophasic 39.0 POP 27.0 Monophasic Monophasic 65.0 TELEPHONE OPERATOR 28.0 Monophasic Monophasic 79.0 DPA 42.0 Monophasic FINDINGS Minimal plaques in the iliac and femoral arteries bilaterally Monophasic and continuous waveforms in the infrapopliteal vessels bilaterally Noncompressible posterior tibial and dorsalis pedis arteries bilaterally CONCLUSIONS 1. Noncompressible ankle vessels bilaterally 2. Abnormal Doppler waveforms, may suggest collateral filling in the infrapopliteal was vessels, bilaterally. 3. Consider CTA to better evaluate peripheral arteries, if clinically indicated Dr Gadiel Kinsey MD [facility] (Electronically Signed) Final Date: 06 September 2023 13:13 S
[2023-09-06] MEDS: fludrocortisone 0.1 mg Tablet 0.200000000000000011 MG PO (11:12)
[2023-09-06] MEDS: predniSONE 20 mg Tablet PO ×2 (11:13→17:17)
[2023-09-06] MEDS: midodrine 5 mg TABLET 10 MG PO ×3 (11:13→22:10)
[2023-09-06] MEDS: sevelamer 800 mg Tablet PO ×3 (11:13→22:10)
[2023-09-06] MEDS: cefepime 1,000 MG in sodium chloride 0.9% (plus) 50 ML 100 MG IV ×2 (11:14→22:03)
[2023-09-06] MEDS: calcium acetate 667 mg Capsule 1334 MG PO ×4 (11:14→22:11)
[2023-09-06] MEDS: vancomycin 1,500 MG/300 ML PIGGYBACK 200 MG IV (11:14)
[2023-09-06] MEDS: pantoprazole DR 40 mg Tablet PO ×2 (11:14→17:17)
--- NOTE | 2023-09-06 11:42 | PC.PT ---
Pt not seen today per [facility] nurse in ICU due to white count being over 40,000 and going to have a lumbar puncture procedure later. Will attempt again tomorrow.
--- NOTE | 2023-09-06 13:14 | P.PN_ITS ---
Subjective 2 Subjective: -Overnight, DP PT pulses diminished, lik veronique secondary to sepsis, however they were not palpable but they are dopplerable, arterial ultrasound ordered, he is also complaining of severe calf pain, venous ultrasound ordered - Patient was examined multiple times of the morning with the family meeting this afternoon ? This morning his white blood cell count 40,000, maps less than 65 started on Levophed evidence of sepsis, septic shock ? Source of infection is not exactly clear at this point ? He is alert to person, to place, not to time he follows commands his only complaint is abdominal pain ? On examination his right dialysis port looks clean and dry however this is a significant source of infection, I have drawn 2 blood cultures from port site?repeated 2 more blood cultures ? Patient's Fungitell assay was positive, 95 there is certainly a risk of low indolent infection such as fungal infection, given his episodes of altered mental status that is slowly elevating white count we will place him on micafungin, plan on lumbar puncture tomorrow ? Repeat CT chest abdomen pelvis to find for sources of infection ? I have started him on vancomycin, cefepime ? Ordered cryptococcal assays, histoplasma, ? Patient's ex- was seen at bedside with family members at the detail discussion about his sepsis septic shock I am worried that the port might be infected, will continue IV antibiotics await for his port results, the blood cultures if he is positive we will have to remove the port, though also there is a possibility of fungal meningitis or fungal infection, I repeated his blood cultures, we might have to do a lumbar puncture tomorrow Vitals/I&O/Wt Last Vital Signs Temp 98.0 F 09/06/23 04:27 Pulse 96 09/06/23 10:30 Resp 20 H 09/06/23 10:30 BP 92/65 09/06/23 10:30 Pulse Ox 93 09/06/23 10:30 O2 Del Method Nasal Cannula 09/06/23 06:00 O2 Flow Rate 3 09/06/23 06:00 FiO2 40 09/06/23 04:00 09/05/23 09/06/23 09/06/23 22:59 06:59 14:59 Intake Total 1301.875 / 1301.875 201.875 / 1503.750 Output Total 1114 / 1114 0 / 1114 Balance 187.875 / 187.875 201.875 / 389.750 Weight last 48 hrs Weight 145.195 kg Weight 143.5 kg Weight 143.698 kg Physical Exam 2 Const: COMMON NORMALS: no acute distress ORIENTATION/CONSCIOUSNESS: Yes awake, Yes oriented to person and Yes oriented to place; not confused Resp: COMMON NORMALS: normal respiratory effort, No retractions, No use of accessory muscles and clear to auscultation bilaterally AUSCULTATION: clear to auscultation bilaterally Cardio: COMMON NORMALS: regular rate, regular rhythm, S1 normal heart sound present and S2 normal heart sound present RATE: regular rate RHYTHM: r egular rhythm HEART SOUNDS: S1 normal heart sound present and S2 normal heart sound present GI: COMMON NORMALS: Normal to inspection, nondistended, normoactive bowel sounds present and non-tender Extremity: COMMON NORMALS: no pedal edema Neuro: SENSORIUM/ORIENTATION: Yes oriented to person and Yes oriented to place Psych: COMMON NORMALS: mental status grossly normal Sepsis: Is patient septic: Yes Focused sepsis exam performed: Yes F ocused sepsis exam: DP PT pulses diminished bilaterally, are palpable, cap refill greater than 2 seconds, pale bilateral extremities, no mottling Date exam was performed: 09/06/23 Time exam was performed: 09:00 Data 09/06/23 02:30 09/06/23 02:30 Micro: Microbiology 09/06/23 09:18 Blood Culture - Preliminary Blood SPECIMEN COLLECTED 09/06/23 09:25 Blood Culture - Preliminary Blood SPECIMEN COLLECTED 09/06/23 08:11 Blood Culture - Preliminary Blood SPECIMEN COLLECTED 09/06/23 08:20 Blood Culture - Preliminary Blood SPECIMEN COLLECTED A&P Assessment and plan (1) Hypercapnic respiratory failure: Qualifiers: Chronicity: acute on chronic Qualified Code(s): J96.22 - Acute and chronic respiratory failure with hypercapnia (2) ESRD (end stage renal disease): (3) Hypertension: Qualifiers: Hypertension type: unspecified Qualified Code(s): I10 - Essential (primary) hypertension (4) Coronary artery disease: Qualifiers: Associated angina: without angina Coronary Disease-Associated Artery/Lesion type: unspecified vessel or lesion type [place] vs. transplanted heart: [place] heart Qualified Code(s): I25.10 - Atherosclerotic heart disease of [place] coronary artery without angina pectoris (5) Atrial fibrillation: Qualifiers: Atrial fibrillation type: unspecified Qualified Code(s): I48.91 - Unspecified atrial fibrillation (6) NATHALY (obstructive sleep apnea): (7) Fall: Qualifiers: Encounter type: subsequent encounter Qualified Code(s): W19.XXXD - Unspecified fall, subsequent encounter (8) Physical deconditioning: (9) Elevated WBC count: Qualifiers: Leukocytosis type: unspecified Qualified Code(s): D72.829 - Elevated white blood cell count, unspecified (10) Acute encephalopathy: (11) Septic shock: Plan Septic shock -WBC count over 40,000, CRP elevated, Pro-Nathan elevated, sed rate elevated ? Initially when patient was admitted there was concerns for pneumonia he was found to vancomycin meropenem, which was eventually discontinued ? Chest x-ray this morning shows bilateral opacification, he remains on 2 L no cough no shortness of breath, will order CT of the chest -Does not urinate -He has dialysis port can be a source of infection, will obtain 2 blood cultures from the port -Repeat blood cultures -Complains of abdominal pain CT scan abdomen pelvis ? Certainly meningitis could be a source infection as he has waxing waning mentation, episodes of confusion afebrile, I doubt bacterial meningitis, as he has been on broad-spectrum antibiotic therapy but certainly viral meningitis or even fungal meningitis is a possibility plan on lumbar puncture tomorrow ? Patient's Fungitell was positive he has no immunocompromise state, however certainly fungal infection could be possibility ? Currently on Levophed ? Plan, ? Vancomycin Cefepime ? Micafungin ? C. difficile studies ? Blood cultures ? Blood cultures from port CT chest abdomen pelvis ? Will consider port removal based on clinical progress, ? Follow-up fungal studies ? Currently on Levophed ? Status stable, prognosis guarded ? DNR/DNI ? Antiplatelet and anticoagulant therapy on hold for plans on lumbar puncture tomorrow Acute encephalopathy ? Alert to person, to place, not to time ? Does follow commands ? Likely some component initially secondary polypharmacy related to permitting, Lyrica which has been discontinued ? Continues to have intermittent episodes of encephalopathy concerns for septic shock, sepsis as an etiology as above End-stage renal disease, on dialysis, requiring pressors with dialysis Diminished pulses likely secondary to sepsis septic shock CONCLUSIONS 1. Noncompressible ankle vessels bilaterally 2. Abnormal Doppler waveforms, may suggest collateral filling in the infrapopliteal was vessels, bilaterally. 3. Consider CTA to better evaluate peripheral arteries, if clinically indicated COPD exacerbation, resolved Acute hypercapnic respiratory failure, needs to use BiPAP scheduled during the night Hypertension Atrial fibrillation, continue amiodarone, anticoagulation currently on hold -Overnight, DP PT pulses diminished, likely secondary to sepsis, however they were not palpable but they are dopplerable, arterial ultrasound ordered, he is also complaining of severe calf pain, venous ultrasound ordered - Patient was examined multiple times of the morning with the family meeting this afternoon ? This morning his white blood cell count 40,000, maps less than 65 started on Levophed evidence of sepsis, septic shock ? Source of infection is not exactly clear at this point ? He is alert to person, to place, not to time he follows commands his only complaint is abdominal pain ? On examination his right dialysis port looks clean and dry however this is a significant source of infection, I have drawn 2 blood cultures from port site?repeated 2 more blood cultures ? Patient's Fungitell assay was positive, 95 there is certainly a risk of low indolent infection such as fungal infection, given his episodes of altered mental status that is slowly elevating white count we will place him on micafungin, plan on lumbar puncture tomorrow ? Repeat CT chest abdomen pelvis to find for sources of infection ? I have started him on vancomycin, cefepime ? Ordered cryptococcal assays, histoplasma, ? Patient's ex- was seen at bedside with family members at the detail discussion about his sepsis septic shock I am worried that the port might be infected, will continue IV antibiotics await for his port results, the blood cultures if he is positive we will have to remove the port, though also there is a possibility of fungal meningitis or fungal infection, I repeated his blood cultures, we might have to do a lumbar puncture tomorrow Attestations 2 Medical Necessity Statement*: Patient requires hospitalization for septic shock, source unclear, with encephalopathy, on pressors requires ICU level monitoring Coding Level of Care Code Critical Care >/= 30 minutes Critical care time (in minutes): 50 The high probability of a clinically significant, sudden or life threatening deterioration, as referenced in this documentation, required my full and direct attention, intervention and personal management. The critical care time shown is in addition to time spent performing any reported separately billable procedures and includes the following: [x] Data and vital sign review and interpretation [x ] Patient assessment, examination and intervention [x] Medication orders and management [x] Patient/Family updates as able [x] Care Coordination and Documentation. Diagnoses Acute on chronic respiratory failure with hypercapnia J96.22 Chronicity: acute on chronic ESRD (end stage renal disease) N18.6 Hypertension, unspecified type I10 Hypertension type: unspecified Coronary artery disease involving [place] heart without angina pectoris, unspecified vessel or lesion type I25.10 Associated angina: without angina Coronary Disease-Associated Artery/Lesion type: unspecified vessel or lesion type [place] vs. transplanted heart: [place] heart Atrial fibrillation, unspecified type I48.91 Atrial fibrillation type: unspecified NATHALY (obstructive sleep apnea) G47.33 Fall, subsequent encounter W19.XXXD Encounter type: subsequent encounter Physical deconditioning R53.81 Leukocytosis, unspecified type D72.829 Leukocytosis type: unspecified Acute encephalopathy G93.40 Septic shock A41.9; R65.21
[2023-09-06] MEDS: mineral oil ENEMA 133 mL PR (15:11)
[2023-09-06] MEDS: norepinephrine 4 MG/250 ML BAG 15 MG IV (15:12)
[2023-09-06] MEDS: atorvastatin 40 mg Tablet PO (17:17)
[2023-09-06] MEDS: lactulose oral liq 20 gm/30 mL UDC PO (17:17)
[2023-09-06] MEDS: polyethylene glycol 3350 Pkt 17 gm PO (17:17)
[2023-09-07] VITALS (47 sets, daily range): BP systolic 79–130; BP diastolic 37–75; PULSE 74–141; RESP 10–30; TEMP 36–36.9; O2SAT 85–97
[2023-09-07] MEDS: albuterol 2.5 mg/3 mL Neb INHALATION ×4 (01:59→20:20)
[2023-09-07] MEDS: norepinephrine 4 MG/250 ML BAG 45 MG IV (03:17)
[2023-09-07 04:02] LABS: ABG PCO2 42.9 mmHg (35-45); ABG PH Result 7.26 (7.35-7.45); Arterial Blood Gas Hematocrit 37.8 % (42-52); Base Excess ABG -7.5 mmol/L (-2.0-2.0); Blood Gas Allen Test Pos; Blood Gas Sample Site Radial, left; Blood Gas Sample Type Arterial; HCO3 ABG 19.2 mmol/L (22-26); Oxygen Device BIPAP; PO2 ABG 75.4 mmHg (80.0-100.0); PO2 FiO2 Ratio Arterial Blood 0
[2023-09-07] MEDS: fluoxetine 20 mg Capsule 60 MG PO (05:21)
[2023-09-07 05:40] LABS: Basophils # 0.1 10^3/uL (0.0-0.1); Basophils % 0.1 %; Eosinophils # 0.1 10^3/uL (0.0-0.8); Eosinophils % 0.1 %; Hematocrit 37.2 % (37-53); Lymphocytes # 0.7 10^3/uL (0.8-4.8); Lymphocytes % 1.4 %; Mean Corpuscular HGB Conc 32.8 g/dL (30-55); Mean Corpuscular Hemoglobin 29.5 pg (27-33); Mean Corpuscular Volume 90.1 fl (82-101); Mean Platelet Volume 11.3 fL (7.4-10.4); Monocytes # 2.8 10^3/uL (0.2-0.9); Monocytes % 5.8 %; Neutrophils # 43.22 10^3/uL (1.8-7.7); Neutrophils % 89.3 %; Nucleated Red Blood Cells # 0.3 /100WBC; Nucleated Red Blood Cells % 0.7 %; Platelet Count 414 10^3/cmm (157-399); Red Blood Count 4.13 10^6/uL (3.85-5.65); Red Cell Distribution Width 15.6 % (12.1-15.1)
[2023-09-07 05:57] LABS: Slide Review Slide Review Perform
[2023-09-07 05:58] LABS: White Blood Count 48.42 10^3/uL (3.29-11.43)
[2023-09-07 06:01] LABS: Ammonia 40 umol/L (16-60)
[2023-09-07 06:02] LABS: Alanine Aminotransferase 28 U/L (0-41); Albumin Level 3.4 g/dL (3.5-5.2); Alkaline Phosphatase 141 U/L (40-130); Anion Gap 30.9 (5-19); Aspartate Amino Transferase 29 U/L (0-40); C Reactive Protein 252.3 mg/L (0.0-4.9); Carbon Dioxide 19 mmol/L (22-29); Chloride 88 mmol/L (98-107); Creatinine Clr Calc Pharmacy 11.9793; Globulin 3.5 g/dL (1.3-4.6); Glomerular Filtration Rate 6.3 mL/min (90-130); Glucose 176 mg/dL (65-115); Phosphorus 6.7 mg/dL (2.5-4.5); Potassium 4.9 mmol/L (3.5-5.1); Sodium 133 mmol/L (136-145); Total Bilirubin 0.6 mg/dL (0.15-1.2); Total Protein 6.9 g/dL (6.6-8.7)
[2023-09-07 06:13] LABS: Osmolality Calculated 328 mOsm/kg (285-295)
[2023-09-07 06:16] LABS: Blood Urea Nitrogen 146 mg/dL (8-23)
[2023-09-07 06:23] LABS: NT Pro B Type Natriuretic Pept 3323 pg/mL (0-125); Procalcitonin 1.36 ng/mL (0-0.5)
[2023-09-07 06:33] LABS: Creatine Phosphokinase 191 U/L (39-308)
--- NOTE | 2023-09-07 06:49 | USCV_ITS ---
Artie Quiles Age: 68 Gender: M : 1955 Exam Date: 09/07/2023 12:56 Ordering Phys: Moisés Landon MD Technologist: Exam Location: [facility] [place] Indication: evaluate valves BP: 105 / 64 HR: 107 Rhythm: Sinus Technical Quality: Very technically difficult study MEASUREMENTS (Male / Female) Normal Values 2D ECHO LV Ejection Fraction MOD 2C 61.9 % LV Ejection Fraction 2C AL 61.6 % RA Systolic Volume 4C AL 76.7 ml RA Systolic Volume 4C MOD 72.8 ml LA Sys Volume AL 93.8 cm cubed LA Sys Volume Index AL 32.0 cm cubed/m squared M-MODE LA Ao Ratio MM 1.7 AV Cusp Separation MM 3.0 cm DOPPLER AV Peak Velocity 193.0 cm/s LVOT Peak Velocity 138.0 cm/s MV Peak Velocity 129.0 cm/s MV Area PHT 4.3 cm squared Mitral E to A Ratio 101.0 TR Peak Velocity 283.0 cm/s TR Peak Gradient 32.0 mmHg TV Peak E Velocity 121.0 cm/s Right Atrial Pressure 3.0 mmHg Pulmonary Artery Systolic Pressu 35.0 mmHg FINDINGS Left Ventricle LV ejection fraction around 62%. No gross wall motion abnormalities. LV appears to be of normal size. Right Ventricle The right ventricle appears to be of normal size ejection fraction Right Atrium Appears to be mildly dilated Left Atrium Appears to be mildly dilated Mitral Valve The valve morphology could not be delineated. Aortic Valve Features of aortic valve sclerosis Tricuspid Valve The valve morphology could not be evaluated. Pulmonic Valve Pulmonic valve not well visualized. Pericardium No pericardial effusion. Aorta Aorta not well visualized. IVC Inferior vena cava not visualized. CONCLUSIONS (Echo contrast - Optison was used to delineate the endocardium and to estimate the LV ejection fraction) LV appears to be of normal size. LV ejection fraction around 62%. Both atria appear to be mildly dilated. Right ventricle is of normal size ejection fraction. Features of aortic valve sclerosis There is no pericardial effusion. Technically difficult study Dr Gadiel Kinsey MD [facility] (Electronically Signed) Final Date: 08 September 2023 08:33 S
--- NOTE | 2023-09-07 09:36 | P.PN_ITS ---
Subjective 2 Subjective: on bipap Medications: Reviewed: Yes Vitals/I&O/Wt Last Vital Signs Temp 98.4 F 09/07/23 00:00 Pulse 83 09/07/23 07:35 Resp 16 09/07/23 07:30 BP 101/46 09/07/23 06:00 Pulse Ox 96 09/07/23 07:33 O2 Del Method BiPAP 09/07/23 07:30 O2 Flow Rate 3 09/06/23 19:17 FiO2 40 09/07/23 07:33 09/06/23 09/07/23 09/07/23 22:59 06:59 14:59 Intake Total 560.25 / 560.25 322.500 / 882.750 32.5 / 32.5 Balance 560.25 / 560.25 322.500 / 882.750 32.5 / 32.5 Weight last 48 hrs Weight 65.317 kg Weight 145.195 kg Weight 143.5 kg Physical Exam 2 Narrative: awake , alert no distress S1S2 RRR per report Lungs clear per report no edema Data 09/07/23 05:29 09/07/23 05:29 Micro: Microbiology 09/06/23 09:18 Blood Culture - Preliminary Blood NEGATIVE TO DATE 09/06/23 09:25 Blood Culture - Preliminary Blood NEGATIVE TO DATE 09/06/23 08:20 Blood Culture - Preliminary Blood NEGATIVE TO DATE 09/06/23 08:11 Blood Culture - Preliminary Blood NEGATIVE TO DATE A&P Assessment and plan (1) ESRD (end stage renal disease): Plan 1. End-stage renal disease: On MWF schedule as patient outpatient , plan for HD today 3. Acute on chronic respiratory failure: Secondary to sleep apnea COPD, now has pneumonia, on BIPAP 4. History of A-fib 5. aNEMIA : RENATE with HD 6. metabolic encephalopathy, improving 7. Hyperkalemia , low K diet , improved 8 MBD : add renvela 9. Hypotension : improved ,s/p pressors, on midodrine - on steroids and IV albumin and Midodrine , weaning steroids Patient evaluated using audiovisual cart. Time spent 20 minutes. Attestations 2 Medical Necessity Statement*: per medicine Coding Level of Care Code Acute Code for g Fwd Diagnoses ESRD (end stage renal disease) N18.6
[2023-09-07] MEDS: polyethylene glycol 3350 Pkt 17 gm PO ×2 (09:48→18:10)
[2023-09-07] MEDS: midodrine 5 mg TABLET 10 MG PO ×3 (09:48→20:14)
[2023-09-07] MEDS: sevelamer 800 mg Tablet PO ×3 (09:48→20:14)
[2023-09-07] MEDS: pantoprazole DR 40 mg Tablet PO ×2 (09:48→18:10)
[2023-09-07] MEDS: sennosides-docusate Tablet 2 TAB PO ×2 (09:48→18:10)
[2023-09-07] MEDS: lactulose oral liq 20 gm/30 mL UDC PO ×2 (09:49→18:10)
[2023-09-07] MEDS: cefepime 1,000 MG in sodium chloride 0.9% (plus) 50 ML 100 MG IV (09:49)
[2023-09-07] MEDS: fludrocortisone 0.1 mg Tablet 0.200000000000000011 MG PO (09:49)
[2023-09-07] MEDS: predniSONE 20 mg Tablet PO (09:52)
[2023-09-07] MEDS: micafungin 150 MG in sodium chloride 0.9% (100 ml) 100 ML 100 MG IV (10:04)
[2023-09-07] MEDS: norepinephrine 4 MG/250 ML BAG 30 MG IV (10:54)
[2023-09-07] MEDS: perflutren protein-a microsphr 0.22 mg/mL SDV 3 mL IV (13:21)
[2023-09-07] MEDS: calcium acetate 667 mg Capsule 1334 MG PO ×2 (15:44→20:14)
--- NOTE | 2023-09-07 16:07 | P.PN_ITS ---
Vitals/I&O/Wt Last Vital Signs Temp 98.4 F 09/07/23 00:00 Pulse 82 09/07/23 14:57 Resp 18 09/07/23 13:20 BP 101/46 09/07/23 06:00 Pulse Ox 94 09/07/23 13:22 O2 Del Method BiPAP 09/07/23 13:20 O2 Flow Rate 3 09/06/23 19:17 FiO2 40 09/07/23 13:22 09/07/23 09/07/23 09/07/23 06:59 14:59 22:59 Intake Total 322.500 / 882.750 301.375 / 301.375 Balance 322.500 / 882.750 301.375 / 301.375 Weight last 48 hrs Weight 65.317 kg Weight 145.195 kg Weight 143.5 kg Physical Exam 2 Const: COMMON NORMALS: no acute distress EXAM LIMITATIONS: altered mental status ORIENTATION/CONSCIOUSNESS: Yes awake, Yes oriented to person and Yes oriented to place; not oriented to time Resp: COMMON NORMALS: normal respiratory effort, No retractions, No use of accessory muscles and clear to auscultation bilaterally AUSCULTATION: clear to auscultation bilaterally Cardio: COMMON NORMALS: regular rate, regular rhythm, S1 normal heart sound present and S2 normal heart sound present RATE: regular rate RHYTHM: r egular rhythm HEART SOUNDS: S1 normal heart sound present and S2 normal heart sound present GI: COMMON NORMALS: Normal to inspection, nondistended, normoactive bowel sounds present and non-tender Extremity: COMMON NORMALS: no pedal edema Neuro: SENSORIUM/ORIENTATION: Yes oriented to person, Yes oriented to place and No oriented to time Psych: COMMON NORMALS: mental status grossly normal Data 09/07/23 05:29 09/07/23 05:29 Micro: Microbiology 09/06/23 09:18 Blood Culture - Preliminary Blood NEGATIVE TO DATE 09/06/23 09:25 Blood Culture - Preliminary Blood NEGATIVE TO DATE 09/06/23 08:20 Blood Culture - Preliminary Blood NEGATIVE TO DATE 09/06/23 08:11 Blood Culture - Preliminary Blood NEGATIVE TO DATE A&P Assessment and plan (1) Hypercapnic respiratory failure: Qualifiers: Chronicity: acute on chronic Qualified Code(s): J96.22 - Acute and chronic respiratory failure with hypercapnia (2) ESRD (end stage renal disease): (3) Hypertension: Qualifiers: Hypertension type: unspecified Qualified Code(s): I10 - Essential (primary) hypertension (4) Coronary artery disease: Qualifiers: Associated angina: without angina Coronary Disease-Associated Artery/Lesion type: unspecified vessel or lesion type [place] vs. transplanted heart: [place] heart Qualified Code(s): I25.10 - Atherosclerotic heart disease of [place] coronary artery without angina pectoris (5) Atrial fibrillation: Qualifiers: Atrial fibrillation type: unspecified Qualified Code(s): I48.91 - Unspecified atrial fibrillation (6) NATHALY (obstructive sleep apnea): (7) Fall: Qualifiers: Encounter type: subsequent encounter Qualified Code(s): W19.XXXD - Unspecified fall, subsequent encounter (8) Physical deconditioning: (9) Elevated WBC count: Qualifiers: Leukocytosis type: unspecified Qualified Code(s): D72.829 - Elevated white blood cell count, unspecified (10) Acute encephalopathy: (11) Septic shock: Plan Septic shock, likely secondary to bilateral lower lobe pneumonia -WBC count over 40,000, CRP elevated, Pro-Nathan elevated, sed rate elevated ? Initially when patient was admitted there was concerns for pneumonia he was found to vancomycin meropenem, which was eventually discontinued as he completed 7 days however -CT CHEST ? CT/[place] [id number] IMPRESSION: 1. Bilateral lower lobe pneumonia, left worse than right. 2. There are emphysematous changes in the lungs. 3. Multivessel atherosclerotic disease which involves the coronary arteries. -Does not urinate -He has dialysis port can be a source of infection, will obtain 2 blood cultures from the port, so far negative -Repeat blood cultures, so far negative -Complains of abdominal pain CT scan abdomen pelvis no acute findings ? Certainly meningitis could be a source infection as he has waxing waning mentation, episodes of confusion afebrile, I doubt bacterial meningitis, as he has been on broad-spectrum antibiotic therapy but certainly viral meningitis or even fungal meningitis is a possibility plan on lumbar puncture tomorrow ? Patient's Fungitell was positive he has no immunocompromise state, however certainly fungal infection could be possibility ? Currently on Levophed ? Plan, ? Vancomycin Cefepime ? Micafungin stopped ? C. difficile studies, ? Blood cultures so far negative ? Blood cultures from port so far negative ? Will consider port removal based on clinical progress, ? Follow-up fungal studies ? Currently on Levophed ? Status stable, prognosis guarded ? DNR/DNI ? Antiplatelet and anticoagulant therapy on hold for plans on lumbar puncture tomorrow Acute encephalopathy ? Alert to person, to place, not to time ? Does follow commands ? Likely some component initially secondary polypharmacy related to permitting, Lyrica which has been discontinued ? Continues to have intermittent episodes of encephalopathy concerns for septic shock, sepsis as an etiology as above End-stage renal disease, on dialysis, requiring pressors with dialysis Diminished pulses likely secondary to sepsis septic shock CONCLUSIONS 1. Noncompressible ankle vessels bilaterally 2. Abnormal Doppler waveforms, may suggest collateral filling in the infrapopliteal was vessels, bilaterally. 3. Consider CTA to better evaluate peripheral arteries, if clinically indicated COPD exacerbation, resolved Acute hypercapnic respiratory failure, needs to use BiPAP scheduled during the night Hypertension Atrial fibrillation, continue amiodarone, anticoagulation currently on hold Attestations 2 Medical Necessity Statement*: Patient requires hospitalization for septic shock secondary to bilateral lower lobe pneumonia, currently receiving broad-spectrum antibiotic therapy, on Levophed, Diagnoses Acute on chronic respiratory failure with hypercapnia J96.22 Chronicity: acute on chronic ESRD (end stage renal disease) N18.6 Hypertension, unspecified type I10 Hypertension type: unspecified Coronary artery disease involving [place] heart without angina pectoris, unspecified vessel or lesion type I25.10 Associated angina: without angina Coronary Disease-Associated Artery/Lesion type: unspecified vessel or lesion type [place] vs. transplanted heart: [place] heart Atrial fibrillation, unspecified type I48.91 Atrial fibrillation type: unspecified NATHALY (obstructive sleep apnea) G47.33 Fall, subsequent encounter W19.XXXD Encounter type: subsequent encounter Physical deconditioning R53.81 Leukocytosis, unspecified type D72.829 Leukocytosis type: unspecified Acute encephalopathy G93.40 Septic shock A41.9; R65.21
[2023-09-07] MEDS: atorvastatin 40 mg Tablet PO (18:10)
--- NOTE | 2023-09-07 19:14 | PC.NURSE ---
Shift summary: Pt rested in the bed throughout the shift. PT came by to work with pt but he was using the bedpan at that time. He remains A fib on monitor. Levophed still infusing but rate has been reduced to 5 mcg/min. Pt tolerating well. 3lpm/NC in use today. He picked, if he ate anything, at his meals. He is tolerating the thickened liquid reasonably well. Afebrile. Anuric. He did use bed martinez 3 times today, only once did he produce a big loose BM, very Malodorous.
[2023-09-07] MEDS: heparin, porcine 1,000 unit/mL INJ 10 mL 1000 UNIT IV (22:10)
[2023-09-07] MEDS: heparin, porcine 1,000 unit/mL INJ 10 mL 10000 UNIT INTRACATH (22:11)
[2023-09-07] MEDS: norepinephrine 4 MG/250 ML BAG 22.5 MG IV (22:30)
[2023-09-07] MEDS: morphine IR 15 mg Tablet PO (23:01)
[2023-09-07] MEDS: vancomycin 1,000 MG in sodium chloride 0.9% 250 ML 250 MG IV (23:42)
[2023-09-08] VITALS (55 sets, daily range): BP systolic 70–146; BP diastolic 42–91; PULSE 73–127; RESP 10–35; TEMP 36.2–36.9; O2SAT 86–98
--- NOTE | 2023-09-08 02:29 | PC.HD ---
Pt requested termination of treatment 20 minutes early d/t hip pain (and impending diarrhea), Dr Garth childress via text,
[2023-09-08] MEDS: LORazepam 2 mg/mL INJ 10 mL MDV 0.5 MG IVP (03:07)
--- NOTE | 2023-09-08 03:14 | PC.NURSE ---
Addendum entered by Jamie Cespedes RN 09/08/23 03:25: This nurse witnessed 1.5mg of Ativan being wasted by FLORENCIO Tran. Original Note: patient becoming agitated, wanting to leave ama to go see his dog, notified Dr Valverde, received order for 0.5 ativan IV, remaining 1.5 mg ativan wasted, witnessed by Lauri MATIAS
[2023-09-08 04:41] LABS: Basophils # 0.2 10^3/uL (0.0-0.1); Basophils % 0.4 %; Eosinophils # 0.1 10^3/uL (0.0-0.8); Eosinophils % 0.1 %; Hematocrit 35.9 % (37-53); Lymphocytes # 1.3 10^3/uL (0.8-4.8); Lymphocytes % 2.9 %; Mean Corpuscular HGB Conc 32.6 g/dL (30-55); Mean Corpuscular Volume 89.1 fl (82-101); Mean Platelet Volume 11.2 fL (7.4-10.4); Monocytes # 3.2 10^3/uL (0.2-0.9); Monocytes % 7.1 %; Neutrophils # 38.34 10^3/uL (1.8-7.7); Neutrophils % 86.5 %; Nucleated Red Blood Cells # 0.2 /100WBC; Nucleated Red Blood Cells % 0.4 %; Platelet Count 466 10^3/cmm (157-399); Red Blood Count 4.03 10^6/uL (3.85-5.65); Red Cell Distribution Width 15.3 % (12.1-15.1)
[2023-09-08 04:50] LABS: White Blood Count 44.32 10^3/uL (3.29-11.43)
[2023-09-08 04:58] LABS: Alanine Aminotransferase 27 U/L (0-41); Albumin Level 3.2 g/dL (3.5-5.2); Alkaline Phosphatase 130 U/L (40-130); Anion Gap 26.1 (5-19); Aspartate Amino Transferase 27 U/L (0-40); C Reactive Protein 138.1 mg/L (0.0-4.9); Calcium 8.8 mg/dL (8.5-10.5); Carbon Dioxide 20 mmol/L (22-29); Chloride 91 mmol/L (98-107); Creatinine Clr Calc Pharmacy 13.6963; Globulin 3.6 g/dL (1.3-4.6); Glomerular Filtration Rate 7.4 mL/min (90-130); Glucose 90 mg/dL (65-115); Magnesium 3.5 mg/dL (1.7-2.3); Phosphorus 5.5 mg/dL (2.5-4.5); Potassium 5.1 mmol/L (3.5-5.1); Sodium 132 mmol/L (136-145); Total Bilirubin 0.5 mg/dL (0.15-1.2); Total Protein 6.8 g/dL (6.6-8.7)
[2023-09-08 04:59] LABS: Lactate (Lactic Acid level) 0.7 mmol/L (0.5-2.2)
[2023-09-08 05:00] LABS: Ammonia 48 umol/L (16-60)
[2023-09-08 05:09] LABS: NT Pro B Type Natriuretic Pept 2792 pg/mL (0-125); Procalcitonin 1.21 ng/mL (0-0.5)
[2023-09-08 05:19] LABS: Osmolality Calculated 311 mOsm/kg (285-295)
[2023-09-08 05:20] LABS: Blood Urea Nitrogen 118 mg/dL (8-23); Creatine Phosphokinase 147 U/L (39-308)
[2023-09-08] MEDS: albuterol 2.5 mg/3 mL Neb INHALATION ×3 (08:48→20:17)
[2023-09-08] MEDS: calcium acetate 667 mg Capsule 1334 MG PO ×2 (09:17→18:36)
[2023-09-08] MEDS: cefepime 1,000 MG in sodium chloride 0.9% (plus) 50 ML 100 MG IV (09:17)
--- NOTE | 2023-09-08 09:56 | PM.PN ---
Subjective Subjective: s/p HD yesterday Medications: Reviewed: Yes Vitals/I&O/Wt Last Vital Signs Temp 97.1 F L 09/08/23 09:00 Pulse 87 09/08/23 09:00 Resp 13 09/08/23 09:00 BP 114/61 09/08/23 09:00 Pulse Ox 94 09/08/23 08:50 O2 Del Method Nasal Cannula 09/08/23 09:00 O2 Flow Rate 4 09/08/23 09:00 FiO2 40 09/08/23 08:50 09/07/23 09/08/23 09/08/23 22:59 06:59 14:59 Intake Total 456.750 / 1078.125 895.00 / 1973.125 Output Total 1546 / 1546 Balance 456.750 / 1078.125 -651.00 / 427.125 Weight last 48 hrs Weight 144 kg Weight 144 kg Weight 65.317 kg Physical Exam Narrative: awake , alert no distress S1S2 RRR per report Lungs clear per report no edema Data 09/08/23 04:32 09/08/23 04:32 Micro: Microbiology 09/06/23 09:18 Blood Culture - Preliminary Blood NEGATIVE TO DATE 09/06/23 09:25 Blood Culture - Preliminary Blood NEGATIVE TO DATE 09/06/23 08:20 Blood Culture - Preliminary Blood NEGATIVE TO DATE 09/06/23 08:11 Blood Culture - Preliminary Blood NEGATIVE TO DATE A&P Assessment and plan (1) ESRD (end stage renal disease): Plan 1. End-stage renal disease: On [facility] schedule as patient outpatient , s/p HD yesterday 3. Acute on chronic respiratory failure: Secondary to sleep apnea COPD, now has pneumonia, on BIPAP 4. History of A-fib 5. aNEMIA : RENATE with HD 6. metabolic encephalopathy, 7. Hyperkalemia , low K diet , improved 8 MBD : add renvela 9. Hypotension : improved ,s/p pressors, on midodrine - on steroids and IV albumin and Midodrine , weaning steroids Patient evaluated using audiovisual cart. Time spent 20 minutes. Attestations Medical Necessity Statement*: per [facility] Coding Level of Care Code Acute Code for Chg Fwd Diagnoses ESRD (end stage renal disease) N18.6
[2023-09-08 10:26] LABS: Erythrocyte Sedimentation Rate 79 mm/hr (0-10)
[2023-09-08] MEDS: sennosides-docusate Tablet 2 TAB PO ×2 (10:36→18:36)
[2023-09-08] MEDS: fludrocortisone 0.1 mg Tablet 0.200000000000000011 MG PO (10:36)
[2023-09-08] MEDS: predniSONE 20 mg Tablet PO (10:36)
[2023-09-08] MEDS: sevelamer 800 mg Tablet PO ×2 (10:37→18:36)
[2023-09-08] MEDS: pantoprazole DR 40 mg Tablet PO ×2 (10:37→18:36)
[2023-09-08] MEDS: midodrine 5 mg TABLET 10 MG PO ×3 (10:37→18:35)
[2023-09-08] MEDS: meropenem 1,000 MG in sodium chloride 0.9% (plus) 50 ML 100 MG IV ×2 (10:42→22:47)
[2023-09-08] MEDS: vancomycin 1,000 MG in sodium chloride 0.9% 250 ML 250 MG IV (12:20)
--- NOTE | 2023-09-08 12:49 | XR_ITS ---
WS: [id number] PORTABLE CHEST HISTORY: Post PICC insertion COMPARISON: 09/06/2023 Left-sided PICC line in good position with tip in the distal SVC. No complications. Bilateral pulmonary opacifications. Some of these are overlying artifacts. Small pleural effusions ar e likely. There is soft tissue apical capping as on noted on the prior study. Cardiac size: Moderately enlarged cardiac silhouette. Mediastinum/Aorta: Mild atherosclerosis aorta. No osseous abnormality seen. IMPRESSION: Interval placement of a LEFT PICC line in good position.
[2023-09-08] MEDS: albumin 50 G/200 ML BAG 60 G IV (13:10)
[2023-09-08] MEDS: acetaminophen 325 mg Tablet PO (13:10)
--- NOTE | 2023-09-08 13:35 | PC.OT ---
HOLD ON PATIENT. PATIENTS BLOOD PRESSURE IS EXTREMELY LOW AND IS RECEIVING STERILE PROCEDURE.
--- NOTE | 2023-09-08 14:19 | PICC.NOTE ---
Triple lumen PICC placed to left basilic vein. Referred to vascular access nurse for PICC placement due to poor access, vasopressors, and possible need for antibiotics. Risks and benefits discussed and informed consent obtained from patient , Mandie, via phone. Left arm assessed with left basilic vein measuring 3.5 mm, straight, and apparent best choice for placement. Using sterile technique and MST, left basilic vein accessed x 1 stick. Mid-arm circumference measured 10 cm from left AC 37 cm. Trimmed cath 55 cm with 0 cm external length noted. CXR shows tip in distal SVC, in good position for use per radiologist. Line secured with stat-lock. Insertion site covered with Biopatch and TSM. Report given to bedside nurse, [place].
[2023-09-08 14:46] LABS: Basophils # 0.2 10^3/uL (0.0-0.1); Basophils % 0.4 %; Eosinophils # 0.2 10^3/uL (0.0-0.8); Eosinophils % 0.5 %; Hematocrit 36.3 % (37-53); Lymphocytes # 1.5 10^3/uL (0.8-4.8); Lymphocytes % 3.1 %; Mean Corpuscular HGB Conc 32.8 g/dL (30-55); Mean Corpuscular Hemoglobin 29.4 pg (27-33); Mean Corpuscular Volume 89.6 fl (82-101); Mean Platelet Volume 11.7 fL (7.4-10.4); Monocytes # 4.3 10^3/uL (0.2-0.9); Monocytes % 8.9 %; Neutrophils # 40.84 10^3/uL (1.8-7.7); Neutrophils % 84.4 %; Nucleated Red Blood Cells # 0.2 /100WBC; Nucleated Red Blood Cells % 0.3 %; Platelet Count 477 10^3/cmm (157-399); Red Blood Count 4.05 10^6/uL (3.85-5.65); Red Cell Distribution Width 15.8 % (12.1-15.1)
[2023-09-08 14:59] LABS: White Blood Count 48.37 10^3/uL (3.29-11.43)
--- NOTE | 2023-09-08 15:46 | P.PN_ITS ---
Subjective 2 Subjective: Patient was examined multiple times throughout the morning and into the afternoon -Early in the morning he was seen, he is alert to person, not to place, not to time, can follow commands remains encephalopathic, is off Levophed, remained afebrile overnight, white blood cell count 44,000 we discussed performing a lumbar puncture due to his persistent encephalopathy -Patient was later examined, he was on t he commode, potentially vagal down blood pressures down to maps less than 65, MAP around 55 alert to person and to place not to time he could follow commands, taken off bedpan, placed in Trendelenburg -He was monitored over the next 30 minut es, his maps remained around 55 alert to person to place not to time he can follow commands he can answer questions, no chest pain no shortness of breath, does have complaints of abdominal pain and no evidence of mottling, DP PT pulses palpable but diminished, cap refill greater than 2 seconds, -Patient's IV infiltrated, new IV placed , placed back on Levophed ? Patient was placed back on Levophed titrated upwards towards 18 ? Patient had a PICC line placed ? Reexamined, currently MAP 75 on 18 of Levophed, repeated CBC, no evidence of anemia, no evidence of mottling, DP PT pulses palpable, but diminished, cap refill greater than 2 seconds, Vitals/I&O/Wt Last Vital Signs Temp 97.4 F L 09/08/23 12:00 Pulse 109 H 09/08/23 14:31 Resp 18 09/08/23 14:24 BP 98/53 09/08/23 14:00 Pulse Ox 94 09/08/23 14:25 O2 Del Method BiPAP 09/08/23 14:24 O2 Flow Rate 4 09/08/23 12:00 FiO2 40 09/08/23 14:25 09/08/23 09/08/23 09/08/23 06:59 14:59 22:59 Intake Total 895.00 / 1973.125 393.000 / 393.000 Output Total 1546 / 1546 Balance -651.00 / 427.125 393.000 / 393.000 Weight last 48 hrs Weight 144 kg Weight 144 kg Weight 65.317 kg Physical Exam 2 Const: COMMON NORMALS: no acute distress ORIENTATION/CONSCIOUSNESS: Yes awake, Yes oriented to person and Yes oriented to place Eye: COMMON NORMALS: Equal, round and reactive pupils present and EOMs intact bilaterally PUPIL: Yes Equal, round and reactive pupils present Neck/C-Spine: COMMON NORMALS: full ROM and no lymphadenopathy Chest: COMMONS NORMALS: normal inspection of the chest Resp: COMMON NORMALS: normal respiratory effort, No retractions, No use of accessory muscles and clear to auscultation bilaterally AUSCULTATION: clear to auscultation bilaterally Cardio: COMMON NORMALS: regular rate, regular rhythm, S1 normal heart sound present and S2 normal heart sound present RATE: regular rate RHYTHM: r egular rhythm HEART SOUNDS: S1 normal heart sound present and S2 normal heart sound present GI: COMMON NORMALS: Normal to inspection, nondistended, normoactive bowel sounds present and non-tender Extremity: COMMON NORMALS: no pedal edema Neuro: COMMON NORMALS: CN's II-XII intact bilaterally, moves all extremities and no focal motor deficits SENSORIUM/ORIENTATION: Yes oriented to person and Yes oriented to place Data 09/08/23 14:07 09/08/23 04:32 A&P Assessment and plan (1) Hypercapnic respiratory failure: Qualifiers: Chronicity: acute on chronic Qualified Code(s): J96.22 - Acute and chronic respiratory failure with hypercapnia (2) ESRD (end stage renal disease): (3) Hypertension: Qualifiers: Hypertension type: unspecified Qualified Code(s): I10 - Essential (primary) hypertension (4) Coronary artery disease: Qualifiers: Associated angina: without angina Coronary Disease-Associated Artery/Lesion type: unspecified vessel or lesion type [place] vs. transplanted heart: [place] heart Qualified Code(s): I25.10 - Atherosclerotic heart disease of [place] coronary artery without angina pectoris (5) Atrial fibrillation: Qualifiers: Atrial fibrillation type: unspecified Qualified Code(s): I48.91 - Unspecified atrial fibrillation (6) NATHALY (obstructive sleep apnea): (7) Fall: Qualifiers: Encounter type: subsequent encounter Qualified Code(s): W19.XXXD - Unspecified fall, subsequent encounter (8) Physical deconditioning: (9) Elevated WBC count: Qualifiers: Leukocytosis type: unspecified Qualified Code(s): D72.829 - Elevated white blood cell count, unspecified (10) Acute encephalopathy: (11) Septic shock: (12) Uremic encephalopathy: Plan Septic shock, likely secondary to bilateral lower lobe pneumonia -WBC count over 48,000, CRP elevated, Pro-Nathan elevated, sed rate elevated ? Initially when patient was admitted there was concerns for pneumonia he was found to vancomycin meropenem, which was eventually discontinued as he completed 7 days however -CT CHEST ? CT/[place] [id number] IMPRESSION: 1. Bilateral lower lobe pneumonia, left worse than right. 2. There are emphysematous changes in the lungs. 3. Multivessel atherosclerotic disease which involves the coronary arteries. -Does not urinate -He has dialysis port can be a source of infection, will obtain 2 blood cultures from the port, so far negative -Repeat blood cultures, so far negative -Complains of abdominal pain CT scan abdomen pelvis no acute findings ? Certainly meningitis could be a source infection as he has waxing waning mentation, episodes of confusion afebrile, I doubt bacterial meningitis, as he has been on broad-spectrum antibiotic therapy but certainly viral meningitis or even fungal meningitis is a possibility plan on lumbar puncture tomorrow, if patient is off pressors ? Patient's Fungitell was positive he has no immunocompromise state, however certainly fungal infection could be possibility ? Currently on Levophed ? Plan, ? Vancomycin -Broaden to meropenem ? Micafungin ? C. difficile studies, ? Blood cultures so far negative ? Blood cultures from port so far negative ? Will consider port removal based on clinical progress, ? Follow-up fungal studies ? Currently on Levophed -Midodrine -Albumin ? Status stable, prognosis guarded ? DNR/DNI ? Antiplatelet and anticoagulant therapy on hold for plans on lumbar puncture tomorrow Acute encephalopathy ? Alert to person, to place, not to time ? Does follow commands ? Likely some component initially secondary polypharmacy related to permitting, Lyrica which has been discontinued ? Continues to have intermittent episodes of encephalopathy concerns for septic shock, sepsis as an etiology as above -Uremic encephalopathy playing a role End-stage renal disease, on dialysis, requiring pressors with dialysis Diminished pulses likely secondary to sepsis septic shock CONCLUSIONS 1. Noncompressible ankle vessels bilaterally 2. Abnormal Doppler waveforms, may suggest collateral filling in the infrapopliteal was vessels, bilaterally. 3. Consider CTA to better evaluate peripheral arteries, if clinically indicated COPD exacerbation, resolved Acute hypercapnic respiratory failure, needs to use BiPAP scheduled during the night Hypertension Atrial fibrillation, continue amiodarone, anticoagulation currently on hold Patient was examined multiple times throughout the morning and into the afternoon -Early in the morning he was seen, he is alert to person, not to place, not to time, can follow commands remains encephalopathic, is off Levophed, remained afebrile overnight, white blood cell count 44,000 we discussed performing a lumbar puncture due to his persistent encephalopathy -Patient was later examined, he was on the commode, potentially vagal down blood pressures down to maps less than 65, MAP around 55 alert to person and to place not to time he could follow commands, taken off bedpan, placed in Trendelenburg -He was monitored over the next 30 minutes, his maps remained around 55 alert to person to place not to time he can follow commands he can answer questions, no chest pain no shortness of breath, does have complaints of abdominal pain and no evidence of mottling, DP PT pulses palpable but diminished, cap refill greater than 2 seconds, -Patient's IV infiltrated, new IV placed, placed back on Levophed ? Patient was placed back on Levophed titrated upwards towards 18 ? Patient had a PICC line placed ? Reexamined, currently MAP 75 on 18 of Levophed, repeated CBC, no evidence of anemia, no evidence of mottling, DP PT pulses palpable, but diminished, cap refill greater than 2 seconds, Attestations 2 Medical Necessity Statement*: Patient requires hospitalization for septic shock secondary to pneumonia, leukocytosis, altered mental status Coding Level of Care Code Critical Care >/= 30 minutes Critical care time (in minutes): 45 The high probability of a clinically significant, sudden or life threatening deterioration, as referenced in this documentation, required my full and direct attention, intervention and personal management. The critical care time shown is in addition to time spent performing any reported separately billable procedures and includes the following: [x] Data and vital sign review and interpretation [x ] Patient assessment, examination and intervention [x] Medication orders and management [x] Patient/Family updates as able [x] Care Coordination and Documentation. Diagnoses Acute on chronic respiratory failure with hypercapnia J96.22 Chronicity: acute on chronic ESRD (end stage renal disease) N18.6 Hypertension, unspecified type I10 Hypertension type: unspecified Coronary artery disease involving [place] heart without angina pectoris, unspecified vessel or lesion type I25.10 Associated angina: without angina Coronary Disease-Associated Artery/Lesion type: unspecified vessel or lesion type [place] vs. transplanted heart: [place] heart Atrial fibrillation, unspecified type I48.91 Atrial fibrillation type: unspecified NATHALY (obstructive sleep apnea) G47.33 Fall, subsequent encounter W19.XXXD Encounter type: subsequent encounter Physical deconditioning R53.81 Leukocytosis, unspecified type D72.829 Leukocytosis type: unspecified Acute encephalopathy G93.40 Septic shock A41.9; R65.21 Uremic encephalopathy G93.49; N19
[2023-09-08] MEDS: norepinephrine 4 MG/250 ML BAG 37.5 MG IV (16:00)
[2023-09-08 17:15] LABS: LAB Peripheral Smear Sent for Review
[2023-09-08] MEDS: atorvastatin 40 mg Tablet PO (18:35)
[2023-09-08] MEDS: micafungin 100 MG in sodium chloride 0.9% (plus) 100 ML IV (18:36)
[2023-09-08] MEDS: lactulose oral liq 20 gm/30 mL UDC PO (18:36)
[2023-09-08 19:02] LABS: Reflex FDPQ test REFLEX FDP QUEST TES
[2023-09-08 19:26] LABS: INR 1.34 (0.8-1.2)
[2023-09-08 19:27] LABS: Fibrinogen 764 mg/dL (174-498); Partial Thromboplastin Time 32.6 SECONDS (23.9-36.7)
[2023-09-08 19:29] LABS: Lactic Sepsis W/Reflex 0.7 mmol/L (0.5-2.2)
[2023-09-08 19:30] LABS: Troponin T (5th) Once 102 ng/L (0-15)
[2023-09-08 19:33] LABS: D Dimer 1.89 ug/mLFEU (0-0.59)
[2023-09-08 19:36] LABS: Alanine Aminotransferase 23 U/L (0-41); Albumin Level 3.8 g/dL (3.5-5.2); Alkaline Phosphatase 133 U/L (40-130); Anion Gap 27.8 (5-19); Aspartate Amino Transferase 24 U/L (0-40); Calcium 8.7 mg/dL (8.5-10.5); Carbon Dioxide 20 mmol/L (22-29); Chloride 91 mmol/L (98-107); Creatinine Clr Calc Pharmacy 12.3601; Globulin 2.4 g/dL (1.3-4.6); Glomerular Filtration Rate 6.5 mL/min (90-130); Glucose 103 mg/dL (65-115); Lactate Dehydrogenase 234 U/L (135-225); Potassium 5.8 mmol/L (3.5-5.1); Sodium 133 mmol/L (136-145); Total Bilirubin 0.5 mg/dL (0.15-1.2); Total Protein 6.2 g/dL (6.6-8.7)
[2023-09-08 19:45] LABS: Osmolality Calculated 319 mOsm/kg (285-295)
[2023-09-08 19:46] LABS: Blood Urea Nitrogen 132 mg/dL (8-23)
[2023-09-08] MEDS: doxycycline 100 MG in sodium chloride 0.9% (plus) 100 ML IV (20:44)
[2023-09-09] VITALS (62 sets, daily range): BP systolic 79–136; BP diastolic 38–73; PULSE 80–117; RESP 13–47; TEMP 36.3–37; O2SAT 84–99
[2023-09-09] MEDS: midodrine 5 mg TABLET 10 MG PO ×3 (01:21→18:34)
[2023-09-09] MEDS: albuterol 2.5 mg/3 mL Neb INHALATION ×3 (02:20→19:59)
[2023-09-09] MEDS: fluoxetine 20 mg Capsule 60 MG PO (06:13)
[2023-09-09] MEDS: doxycycline 100 MG in sodium chloride 0.9% (plus) 100 ML IV ×2 (06:15→18:31)
[2023-09-09 07:03] LABS: Basophils # 0.2 10^3/uL (0.0-0.1); Basophils % 0.4 %; Eosinophils # 0.4 10^3/uL (0.0-0.8); Eosinophils % 0.8 %; Hematocrit 35.3 % (37-53); Lymphocytes # 1.8 10^3/uL (0.8-4.8); Lymphocytes % 4.1 %; Mean Corpuscular HGB Conc 32.3 g/dL (30-55); Mean Corpuscular Hemoglobin 29.2 pg (27-33); Mean Corpuscular Volume 90.5 fl (82-101); Mean Platelet Volume 11.5 fL (7.4-10.4); Monocytes % 9.1 %; Neutrophils # 36.45 10^3/uL (1.8-7.7); Neutrophils % 83.3 %; Nucleated Red Blood Cells # 0.2 /100WBC; Nucleated Red Blood Cells % 0.5 %; Platelet Count 451 10^3/cmm (157-399); Red Cell Distribution Width 15.5 % (12.1-15.1)
[2023-09-09 07:19] LABS: Ammonia 42 umol/L (16-60); Lactate (Lactic Acid level) 0.9 mmol/L (0.5-2.2)
[2023-09-09 07:30] LABS: NT Pro B Type Natriuretic Pept 3763 pg/mL (0-125); Procalcitonin 1.16 ng/mL (0-0.5)
[2023-09-09 07:37] LABS: INR 1.29 (0.8-1.2)
[2023-09-09 07:42] LABS: Alanine Aminotransferase 20 U/L (0-41); Albumin Level 3.5 g/dL (3.5-5.2); Alkaline Phosphatase 129 U/L (40-130); Anion Gap 30.5 (5-19); Aspartate Amino Transferase 22 U/L (0-40); Calcium 8.6 mg/dL (8.5-10.5); Carbon Dioxide 18 mmol/L (22-29); Chloride 90 mmol/L (98-107); Creatine Phosphokinase 128 U/L (39-308); Creatinine Clr Calc Pharmacy 11.8081; Globulin 3.3 g/dL (1.3-4.6); Glomerular Filtration Rate 6.2 mL/min (90-130); Glucose 87 mg/dL (65-115); Magnesium 3.7 mg/dL (1.7-2.3); Phosphorus 6.1 mg/dL (2.5-4.5); Sodium 132 mmol/L (136-145); Total Bilirubin 0.7 mg/dL (0.15-1.2); Total Protein 6.8 g/dL (6.6-8.7)
[2023-09-09 07:46] LABS: Potassium 6.5 mmol/L (3.5-5.1)
[2023-09-09 07:51] LABS: Blood Urea Nitrogen 146 mg/dL (8-23); Osmolality Calculated 321 mOsm/kg (285-295); White Blood Count 43.73 10^3/uL (3.29-11.43)
[2023-09-09] MEDS: heparin, porcine 1,000 unit/mL INJ 10 mL 1000 UNIT IV (08:03)
--- NOTE | 2023-09-09 08:04 | PC.NURSE ---
Patient refusing cares this am, allowed this nurse to listen to lungs and heart then I want to be left alone!
--- NOTE | 2023-09-09 08:07 | PC.NURSE ---
Patient refused to cooperate for assess, stated wants to be left alone. Legally blind. Refused to allow nurse to assist limb abilities.
--- NOTE | 2023-09-09 08:32 | FL_ITS ---
WS: [id number] LUMBAR PUNCTURE CLINICAL INFORMATION: AMS COMPARISON: None. TECHNIQUE: Informed consent: The procedure and its potential risk and complications were discussed with the ramona ent. Verbal and written consent was obtained. Timeout: A timeout was performed to confirm correct patient, procedure, and site. Patient was prepped and draped in the usual sterile fashion. Lidocaine 1% was used for local anesthes ia. Utilizing fluoroscopic guidance, a 5.0 inch 22-gauge spinal needle was advanced into the subarach noid space at L2-3 via LEFT oblique sublaminar approach. Free flow of CSF was obtained. CSF was initi ally blood-tinged which immediately cleared with additional drainage. 10 cc of CSF was collected and sent the lab for further analysis. FLUOROSCOPIC TIME: 1min [id number] # of spot films: 1 IMPRESSION: Fluoroscopically guided lumbar puncture. No immediate complications
--- NOTE | 2023-09-09 09:25 | PC.HD ---
Per dental technician metal, HD treatment today to be shortened by 45 minutes. UF goal will not be met; however, patient will receive HD again tomorrow after CT with contrast today.
--- NOTE | 2023-09-09 09:38 | P.PN_ITS ---
Subjective 2 Subjective: getting HD Medications: Reviewed: Yes Vitals/I&O/Wt Last Vital Signs Temp 98.6 F 09/09/23 09:10 Pulse 88 09/09/23 09:10 Resp 14 09/09/23 09:10 BP 84/47 09/09/23 09:10 Pulse Ox 94 09/09/23 09:04 O2 Del Method BiPAP 09/09/23 07:20 O2 Flow Rate 4 09/08/23 20:00 FiO2 40 09/09/23 09:04 09/08/23 09/09/23 09/09/23 22:59 06:59 14:59 Intake Total 1169.125 / 1617.375 59.125 / 1676.500 100 / 100 Output Total 0 / 0 0 / 0 Balance 1169.125 / 1617.375 59.125 / 1676.500 100 / 100 Weight last 48 hrs Weight 144.5 kg Weight 144 kg Weight 144 kg Physical Exam 2 Narrative: awake , on bipap no distress S1S2 RRR per report Lungs clear per report no edema Data 09/09/23 06:50 09/09/23 06:50 A&P Assessment and plan (1) ESRD (end stage renal disease): Plan 1. End-stage renal disease: On MWF schedule as patient outpatient ,HD today 3. Acute on chronic respiratory failure: Secondary to sleep apnea COPD, now has pneumonia, on BIPAP 4. History of A-fib 5. aNEMIA : RENATE with HD 6. metabolic encephalopathy, 7. Hyperkalemia , low K diet , run 1K bath with hD 8 MBD : add renvela 9. Hypotension : improved ,s/p pressors, on midodrine - on steroids and IV albumin and Midodrine , weaning steroids Patient evaluated using audiovisual cart. Time spent 20 minutes. Attestations 2 Medical Necessity Statement*: per medicine Coding Level of Care Code Acute Code for Chg Fwd Diagnoses ESRD (end stage renal disease) N18.6
--- NOTE | 2023-09-09 10:32 | PC.HD ---
Per front sight attacher's request, HD treatment was shortened by approximately one hour. UF goal not met; 1400 mL net fluid removal noted.
[2023-09-09] MEDS: meropenem 1,000 MG in sodium chloride 0.9% (plus) 50 ML 100 MG IV ×2 (10:49→23:21)
[2023-09-09] MEDS: sennosides-docusate Tablet 2 TAB PO (10:53)
[2023-09-09] MEDS: calcium acetate 667 mg Capsule 1334 MG PO (10:54)
[2023-09-09] MEDS: fludrocortisone 0.1 mg Tablet 0.200000000000000011 MG PO (10:54)
[2023-09-09] MEDS: predniSONE 20 mg Tablet PO (10:54)
[2023-09-09] MEDS: pantoprazole DR 40 mg Tablet PO ×2 (10:54→18:34)
[2023-09-09] MEDS: sevelamer 800 mg Tablet PO ×3 (10:54→20:42)
--- NOTE | 2023-09-09 11:11 | CT_ITS ---
WS: [id number] CT LUMBAR SPINE, noncontrast. HISTORY: look for abscess TECHNIQUE: Contiguous 2.0 mm axial imaging are performed. Sagittal and coronal reformats are submitte d and reviewed. All CT scans at [facility] use at least one of these dose optimization techni ques: automated exposure control; mA and/or kV adjustment per patient size (includes targeted exams w here dose is matched to clinical indication); or iterative reconstruction. IV contrast: None DLP: 2723.10 mGy.cm COMPARISON: 08/25/2023 Quality of this examination is compromised by motion and body habitus. Noncontrast evaluation with meagan jaquez evaluation for abscess. Lumbar alignment is normal. No fractures are identified. No focal fluid collections. Thecal sac and epidural space is not evaluated adequately to exclude abscess. Atheroscl erosis aorta. IMPRESSION: Limited evaluation of the lumbar spine for abscess. Suboptimal due to patient's body habitus, motion and noncontrast evaluation.
--- NOTE | 2023-09-09 11:11 | CT_ITS ---
WS: [id number] CT CHEST, ABDOMEN AND PELVIS NONCONTRAST HISTORY: leukocytosis of unkoen origin, look for abscess TECHNIQUE: Contiguous 5 mm axial imaging performed through the chest, abdomen and pelvis without IV c ontrast, oral contrast has Been provided. Coronal and sagittal reformats chest. Coronal and sagittal reformats through the abdom en and pelvis. All CT scans at [facility] use at least one of these dose optimization techniq ues: automated exposure control; mA and/or kV adjustment per patient size (includes targeted exams wh ere dose is matched to clinical indication); or iterative reconstruction. CONTRAST: None DLP: 2723.10 mGy.cm COMPARISON: 09/06/[address]: Bilateral lower lobe areas of consolidation most likely atelectasis. Pneumonia at the LEFT lung base is not excluded. Overall improvement since 09/06/2023. There is no pneumothorax or pleural ef fusion. LEFT PICC line. Dialysis catheter with tip in the distal SVC. Mild cardiomegaly. Atherosclero sis aorta. No soft tissue abnormality. Abdomen CT: Study is significantly limited by motion. Patient was not cooperative for this examinatio n. No free air is identified. Fluid and air distention of the stomach and small bowel. No obstructive pattern. There is significant streak artifact through the abdomen and pelvis due to patient's arms. There is a small amount of layering sludge and debris within the gallbladder probably due to cholestasis. Pancr eatic atrophy. No renal obstruction. Exophytic cyst LEFT kidney. Nonobstructing calcification LEFT lo wer pole. Moderate atherosclerosis aorta. Ventral abdominal wall hernia contains fat only. Pelvic CT: No free fluid or abscess. Nondistended bladder. IMPRESSION: 1. No abscess or fluid collection within the abdomen or pelvis. 2. Bilateral lower lobe areas of subsegmental consolidation. Most likely atelectasis. Consolidation at the LEFT base may be resolving pneumonia. Slightly improved since 09/06/2023. 3. No renal obstruction. 4. Increased density within the dependent portion of the gallbladder. Debris and sludge likely. Prob ably due to cholestasis. Consider evaluation of the gallbladder by ultrasound. 5. Mild fluid distention of the stomach and colon. No obstructive pattern. Probably mild ileus.
--- NOTE | 2023-09-09 11:11 | CT_ITS ---
WS: [id number] CT THORACIC SPINE, noncontrast HISTORY: look for abscess TECHNIQUE: Contiguous 2.0 mm axial images are reviewed to thoracic spine. Images are reformatted in s agittal and coronal planes. All CT scans at [facility] use at least one of these dose optimiz ation techniques: automated exposure control; mA and/or kV adjustment per patient size (includes targ eted exams where dose is matched to clinical indication); or iterative reconstruction. DLP: 2723.10 mGy.cm COMPARISON: 08/25/2023 Limited quality evaluation due to patient motion, body habitus and noncontrast. Mild curvature of the thoracic spine. Increase in thoracic kyphosis with mild spondylitic changes. Disc spaces are narrowe d. No fluid collections are identified. Epidural abscess would easily be obscured at this amount of a rtifact. Significant motion artifact throughout the lungs. Consolidations at the lung bases most likely atelec tasis. IMPRESSION: Suboptimal evaluation to exclude abscess. No IV contrast was provided. No fluid collections are ident ified. Bilateral lower lobe lung consolidations, likely atelectasis.
--- NOTE | 2023-09-09 11:11 | CT_ITS ---
WS: [id number] CT CERVICAL SPINE, noncontrast HISTORY: look for abscess TECHNIQUE: Contiguous 2.0 mm axial imaging performed through the entire cervical spine. Sagittal and coronal reformats also performed. All CT scans at [facility] use at least one of these dose o ptimization techniques: automated exposure control; mA and/or kV adjustment per patient size (include s targeted exams where dose is matched to clinical indication); or iterative reconstruction. DLP: 2723.10 mGy.cm COMPARISON: 08/25/2023 Straightening of the normal cervical lordosis. Slight anterolisthesis of C2 on C3. Advanced degenerat mica changes throughout the cervical spine. Disc bases are narrowed. Osteophytes. Central and foramina l stenosis throughout the cervical spine from C3-4 through C6-7. No fluid collections are identified. Advanced atherosclerosis within the carotid arteries. IMPRESSION: 1. No fluid collections identified. This is a noncontrast evaluation of the cervical spine. 2. Central foraminal stenosis from C3-4 through C6-7.
--- NOTE | 2023-09-09 11:11 | PC.NURSE ---
pt off bipap long enough to take po meds became upset told us to leave him alone pill po but refused lax at this time .
[2023-09-09] MEDS: sodium chloride 0.9% 250 ML IV (13:03)
[2023-09-09] MEDS: haloperidol inj 5 mg/mL INJ 1 mL 2 MG IM (13:10)
[2023-09-09] MEDS: midodrine 5 mg TABLET 20 MG PO (13:19)
[2023-09-09] MEDS: albumin 50 G/200 ML BAG 60 G IV (13:20)
--- NOTE | 2023-09-09 13:58 | PM.PN ---
Subjective Subjective: - Patient, was examined multiple times at the morning, into the afternoon, with a family meeting with patient's in the afternoon ? Early in the morning he was seen he is alert to person, not to place, to time he is quite drowsy, overnight his Levophed was turned off, ? Currently this morning he is receiving dialysis on BiPAP, he is requiring Levophed, ? He was seen thereafter, off BiPAP had completed dialysis, off Levophed, alert to person, not to place, not to time, does not follow commands ? Patient was taken to CT for martinez CT chest abdomen pelvis, CT of the spine, to evaluate for abscess, however cannot do with contrast as he has a anaphylactic reaction to iodinated contrast media, ? Martinez CT scan does not have any acute findings except that he has his known pneumonia which seems to be resolving radiographically ? I had a detailed discussion with patient's exwife, at bedside, he is afebrile overnight, currently off pressors, I think that his hypotension is likely just on dysautomania from his Parkinson's disease however certainly sepsis and septic shock could be additional factor given his elevated CRP, Pro-Nathan is white blood cell count, currently down to 43,000, lactic acids are within normal limits, ? ? Given that so far all his blood cultures are negative, port cultures are negative, he remains afebrile, his martinez CT scans are within normal limits, given his persistent altered mentation, I am worried that he might have a low indolent infection, discussed risk and benefits of lumbar puncture, morbidity mortality discussed with adverse side effects, adverse reactions, complications, she voiced understanding, all questions answered, agreed to proceed ? The plan will be to proceed with lumbar puncture, to rule out meningitis or encephalitis as a possibility for fungal infection ? Discussed with that currently he is on maximal medical therapy, vancomycin, meropenem, doxycycline and also antifungals ? I think potentially up confounding factor to his mentation is his uremia, he does have uremic encephalopathy as a confounding factor to his mentation, but his mentation tends to fluctuate, -We discussed that, based upon workup, we will proceed with a tagged white blood cell scan tomorrow, and then a family meeting tomorrow afternoon, ? As at times patient has been refusing to take his medication, telling the nurses staff that he has done, however currently he is alert to person, not to place, not to time, he is not encephalopathic, he cannot make informed decisions so he will be a shared decision making between him, and his ex-, and the rest of the family Vitals/I&O/Wt Last Vital Signs Temp 98.6 F 09/09/23 10:31 Pulse 113 H 09/09/23 12:06 Resp 26 H 09/09/23 12:06 BP 104/50 09/09/23 11:30 Pulse Ox 90 09/09/23 12:06 O2 Del Method Nasal Cannula 09/09/23 12:06 O2 Flow Rate 4 09/09/23 12:06 FiO2 40 09/09/23 09:47 09/08/23 09/09/23 09/09/23 22:59 06:59 14:59 Intake Total 1169.125 / 1617.375 59.125 / 1676.500 474.375 / 474.375 Output Total 0 / 0 0 / 0 1694 / 1694 Balance 1169.125 / 1617.375 59.125 / 1676.500 -1219.625 / -1219.625 Weight last 48 hrs Weight 143 kg Weight 144.5 kg Weight 144 kg Weight 144 kg Physical Exam Const: COMMON NORMALS: no acute distress Resp: COMMON NORMALS: normal respiratory effort, No retractions, No use of accessory muscles and clear to auscultation bilaterally AUSCULTATION: clear to auscultation bilaterally Cardio: COMMON NORMALS: regular rate, regular rhythm, S1 normal heart sound present and S2 normal heart sound present RATE: regular rate RHYTHM: regular rhythm HEART SOUNDS: S1 normal heart sound present and S2 normal heart sound present GI: COMMON NORMALS: Normal to inspection, nondistended, normoactive bowel sounds present and non-tender Extremity: COMMON NORMALS: no pedal edema Psych: COMMON NORMALS: mental status grossly normal Data 09/09/23 06:50 09/09/23 06:50 A&P Assessment and plan (1) Hypercapnic respiratory failure: Qualifiers: Chronicity: acute on chronic Qualified Code(s): J96.22 - Acute and chronic respiratory failure with hypercapnia (2) ESRD (end stage renal disease): (3) Hypertension: Qualifiers: Hypertension type: unspecified Qualified Code(s): I10 - Essential (primary) hypertension (4) Coronary artery disease: Qualifiers: Associated angina: without angina Coronary Disease-Associated Artery/Lesion type: unspecified vessel or lesion type [place] vs. transplanted heart: [place] heart Qualified Code(s): I25.10 - Atherosclerotic heart disease of [place] coronary artery without angina pectoris (5) Atrial fibrillation: Qualifiers: Atrial fibrillation type: unspecified Qualified Code(s): I48.91 - Unspecified atrial fibrillation (6) NATHALY (obstructive sleep apnea): (7) Fall: Qualifiers: Encounter type: subsequent encounter Qualified Code(s): W19.XXXD - Unspecified fall, subsequent encounter (8) Physical deconditioning: (9) Elevated WBC count: Qualifiers: Leukocytosis type: unspecified Qualified Code(s): D72.829 - Elevated white blood cell count, unspecified (10) Acute encephalopathy: (11) Septic shock: (12) Uremic encephalopathy: (13) Dysautonomia: Plan Septic shock, likely secondary to bilateral lower lobe pneumonia -WBC count over 48,000, CRP elevated, Pro-Nathan elevated, sed rate elevated ? Initially when patient was admitted there was concerns for pneumonia he was found to vancomycin meropenem, which was eventually discontinued as he completed 7 days however -CT CHEST ? CT/[place] [id number] IMPRESSION: 1. Bilateral lower lobe pneumonia, left worse than right. 2. There are emphysematous changes in the lungs. 3. Multivessel atherosclerotic disease which involves the coronary arteries. -Repeat CT scan abdomen pelvis and chest, and spine, done without contrast due to contrast allergy, no new acute findings -Does not urinate -He has dialysis port can be a source of infection, will obtain 2 blood cultures from the port, so far negative -Repeat blood cultures, so far negative -Complains of abdominal pain CT scan abdomen pelvis no acute findings ? Certainly meningitis could be a source infection as he has waxing waning mentation, episodes of confusion afebrile, I doubt bacterial meningitis, as he has been on broad-spectrum antibiotic therapy but certainly viral meningitis or even fungal meningitis is a possibility plan on lumbar puncture tomorrow, if patient is off pressors ? Patient's Fungitell was positive he has no immunocompromise state, however certainly fungal infection could be possibility ? Currently on Levophed ? Plan, ? Vancomycin -Broaden to meropenem ? Micafungin -doxyycline ? C. difficile studies, ? Blood cultures so far negative ? Blood cultures from port so far negative ? Will consider port removal based on clinical progress, ? Follow-up fungal studies ? Currently on Levophed -Midodrine -Albumin ? Status stable, prognosis guarded ? DNR/DNI ? Antiplatelet and anticoagulant therapy on hold for plans on lumbar puncture tomorrow Acute encephalopathy ? Alert to person, to place, not to time ? Does follow commands ? Likely some component initially secondary polypharmacy related to permitting, Lyrica which has been discontinued ? Continues to have intermittent episodes of encephalopathy concerns for septic shock, sepsis as an etiology as above -Uremic encephalopathy playing a role End-stage renal disease, on dialysis, requiring pressors with dialysis Diminished pulses likely secondary to sepsis septic shock CONCLUSIONS 1. Noncompressible ankle vessels bilaterally 2. Abnormal Doppler waveforms, may suggest collateral filling in the infrapopliteal was vessels, bilaterally. 3. Consider CTA to better evaluate peripheral arteries, if clinically indicated COPD exacerbation, resolved Acute hypercapnic respiratory failure, needs to use BiPAP scheduled during the night Hypertension Atrial fibrillation, continue amiodarone, anticoagulation currently on hold - Patient, was examined multiple times at the morning, into the afternoon, with a family meeting with patient's in the afternoon ? Early in the morning he was seen he is alert to person, not to place, to time he is quite drowsy, overnight his Levophed was turned off, ? Currently this morning he is receiving dialysis on BiPAP, he is requiring Levophed, ? He was seen thereafter, off BiPAP had completed dialysis, off Levophed, alert to person, not to place, not to time, does not follow commands ? Patient was taken to CT for martinez CT chest abdomen pelvis, CT of the spine, to evaluate for abscess, however cannot do with contrast as he has a anaphylactic reaction to iodinated contrast media, ? Martinez CT scan does not have any acute findings except that he has his known pneumonia which seems to be resolving radiographically ? I had a detailed discussion with patient's exwife, at bedside, he is afebrile overnight, currently off pressors, I think that his hypotension is likely just on dysautomania from his Parkinson's disease however certainly sepsis and septic shock could be additional factor given his elevated CRP, Pro-Nathan is white blood cell count, currently down to 43,000, lactic acids are within normal limits, ? ? Given that so far all his blood cultures are negative, port cultures are negative, he remains afebrile, his martinez CT scans are within normal limits, given his persistent altered mentation, I am worried that he might have a low indolent infection, discussed risk and benefits of lumbar puncture, morbidity mortality discussed with adverse side effects, adverse reactions, complications, she voiced understanding, all questions answered, agreed to proceed ? The plan will be to proceed with lumbar puncture, to rule out meningitis or encephalitis as a possibility for fungal infection ? Discussed with that currently he is on maximal medical therapy, vancomycin, meropenem, doxycycline and also antifungals ? I think potentially up confounding factor to his mentation is his uremia, he does have uremic encephalopathy as a confounding factor to his mentation, but his mentation tends to fluctuate, -We discussed that, based upon workup, we will proceed with a tagged white blood cell scan tomorrow, and then a family meeting tomorrow afternoon, ? As at times patient has been refusing to take his medication, telling the nurses staff that he has done, however currently he is alert to person, not to place, not to time, he is not encephalopathic, he cannot make informed decisions so he will be a shared decision making between him, and his ex-, and the rest of the family Attestations Medical Necessity Statement*: Patient requires hospitalization, for sepsis, septic shock encephalopathy, acute encephalopathy, leukocytosis Diagnoses Acute on chronic respiratory failure with hypercapnia J96.22 Chronicity: acute on chronic ESRD (end stage renal disease) N18.6 Hypertension, unspecified type I10 Hypertension type: unspecified Coronary artery disease involving [place] heart without angina pectoris, unspecified vessel or lesion type I25.10 Associated angina: without angina Coronary Disease-Associated Artery/Lesion type: unspecified vessel or lesion type [place] vs. transplanted heart: [place] heart Atrial fibrillation, unspecified type I48.91 Atrial fibrillation type: unspecified NATHALY (obstructive sleep apnea) G47.33 Fall, subsequent encounter W19.XXXD Encounter type: subsequent encounter Physical deconditioning R53.81 Leukocytosis, unspecified type D72.829 Leukocytosis type: unspecified Acute encephalopathy G93.40 Septic shock A41.9; R65.21 Uremic encephalopathy G93.49; N19 Dysautonomia G90.1
--- NOTE | 2023-09-09 14:25 | PC.OT ---
PATIENT IS ON HOLD PER NURSING REQUEST. WILL ATTEMPT TOMORROW.
[2023-09-09] MEDS: morphine 4 mg/mL SDV 1 mL 1 MG IVP ×2 (14:47→20:51)
[2023-09-09 15:08] LABS: HIV 1 & 2 Antibody Non-Reactive (Non-Reactiv); HIV 1 & 2 Antigen Non-Reactive (Non-Reactiv)
[2023-09-09 15:10] LABS: Hepatitis A Antibody IgM Non-Reactive (Nonreactive); Hepatitis B Core IgM Non-Reactive (Nonreactive); Hepatitis B Surface Antigen Non-Reactive (Nonreactive); Hepatitis C Virus Antibody Non-Reactive (Nonreactive)
[2023-09-09] MEDS: micafungin 100 MG in sodium chloride 0.9% (plus) 100 ML IV (15:16)
[2023-09-09 17:09] LABS: Aspergillus AG,EIA,Serum NOT DETECTED; Aspergillus Galactomannan Inde <0.50
[2023-09-09 17:50] LABS: Glucose CSF 58 mg/dL (40-70); Total Protein CSF 82 mg/dL (15-45)
[2023-09-09 18:22] LABS: CSF Mononuclear # 0.009 10^3/uL (50-90); Mononuclear WBC CSF % 90 % (50-90); Polynuclear Cells ,CSF # 0.001 10^3/uL (0-10); Polynuclear WBC CSF % 10 % (0-10); Red Blood Cell CSF 0 10^3/uL (0-0); White Blood Cell CSF 10 /uL (0-5)
[2023-09-09 18:23] LABS: Appearance CSF CLEAR (CLEAR); Color CSF COLORLESS (COLORLESS)
[2023-09-09 18:26] LABS: Pathology Referral Yes
[2023-09-09] MEDS: atorvastatin 40 mg Tablet PO (18:35)
[2023-09-09 18:57] LABS: Anion Gap 25.6 (5-19); Calcium 8.8 mg/dL (8.5-10.5); Carbon Dioxide 21 mmol/L (22-29); Chloride 94 mmol/L (98-107); Creatinine Clr Calc Pharmacy 14.6316; Glucose 112 mg/dL (65-115); Osmolality Calculated 311 mOsm/kg (285-295); Potassium 5.6 mmol/L (3.5-5.1); Sodium 135 mmol/L (136-145)
[2023-09-09 19:22] LABS: Blood Urea Nitrogen 96 mg/dL (8-23)
[2023-09-09 19:44] LABS: Cryptococcal Source SERUM
--- NOTE | 2023-09-09 20:20 | PC.NURSE ---
Dr. Liang: Notified Dr. Liang of recent BMP results @2016. New order for 30g Kayexalate PO NOW ONCE, 2amp Sodium Bicarb IVP NOW ONCE, and recheck BMP @midnight.
[2023-09-09] MEDS: ondansetron 2 mg/ML SDV 2 mL 4 MG IVP (20:29)
[2023-09-09] MEDS: sodium bicarbonate 8.4% 1 mEq/mL 50mL Syr 50 MEQ IVP ×2 (20:40)
[2023-09-09] MEDS: sodium polystyrene sulfonate 15 gm/60 mL Btl 30 GM PO (21:09)
--- NOTE | 2023-09-09 21:15 | PC.NURSE ---
Refused Calcium Acetate: Dr. Valverde notified pt is refusing calcium acetate @2116, pt states he is sick and tired and that he want to be left alone.
--- NOTE | 2023-09-09 23:21 | PC.NURSE ---
Up to Chair: Pt requested to be up in the recliner. Used slide board and air mat to transfer pt from bed to recliner. Pt sat in the recliner for about 30 minutes then requested to be moved bath. Bed bath given while in recliner, then pt was transferred back to bed.
[2023-09-10] VITALS (34 sets, daily range): BP systolic 107–157; BP diastolic 49–85; PULSE 74–114; RESP 12–26; TEMP 36.3–37; O2SAT 85–100
[2023-09-10 01:39] LABS: Chloride 93 mmol/L (98-107); Sodium 134 mmol/L (136-145)
[2023-09-10 01:44] LABS: Anion Gap 23.2 (5-19); Calcium 8.4 mg/dL (8.5-10.5); Carbon Dioxide 24 mmol/L (22-29); Glucose 105 mg/dL (65-115); Osmolality Calculated 313 mOsm/kg (285-295); Potassium 6.2 mmol/L (3.5-5.1)
[2023-09-10 01:46] LABS: Blood Urea Nitrogen 109 mg/dL (8-23); Creatinine Clr Calc Pharmacy 14.6316
--- NOTE | 2023-09-10 01:48 | PC.NURSE ---
Refusing Midodrine: Dr. Valverde notified @8976. Pt is resting on BIPAP, states that he wants me to leave him alone.
[2023-09-10] MEDS: albuterol 2.5 mg/3 mL Neb INHALATION ×4 (02:08→20:13)
--- NOTE | 2023-09-10 02:09 | PC.NURSE ---
Dr. Liang: Notified Dr. Liang of repeat BMP @0150 and that pt is refusing PO medications. New order for 1amp D50 IVP ONCE NOW, 10 units IVP Regular Insulin ONCE NOW, and 60 units IVP Lasix ONCE NOW. [facility] called @0208, d50 amps not available, 250ml d10 bolus equivalent.
[2023-09-10] MEDS: dextrose 10% 250 ML 1000 ML IV (02:42)
[2023-09-10] MEDS: FUROsemide 10 mg/mL SDV 10mL 60 MG IVP (02:44)
[2023-09-10] MEDS: insulin regular-human 10 UNIT in SYRINGE 1 EACH 999 UNIT IVP (02:52)
[2023-09-10 02:53] LABS: Glucose Point of Care 140 mg/dL (70-110)
[2023-09-10 04:33] LABS: Basophils # 0.2 10^3/uL (0.0-0.1); Basophils % 0.4 %; Eosinophils % 0.1 %; Hematocrit 33.6 % (37-53); Lymphocytes # 1.4 10^3/uL (0.8-4.8); Lymphocytes % 3.6 %; Mean Corpuscular HGB Conc 31.8 g/dL (30-55); Mean Corpuscular Hemoglobin 29.1 pg (27-33); Mean Corpuscular Volume 91.3 fl (82-101); Mean Platelet Volume 11.5 fL (7.4-10.4); Monocytes # 3.6 10^3/uL (0.2-0.9); Monocytes % 9.1 %; Neutrophils # 33.76 10^3/uL (1.8-7.7); Neutrophils % 84.8 %; Nucleated Red Blood Cells # 0.1 /100WBC; Nucleated Red Blood Cells % 0.2 %; Platelet Count 388 10^3/cmm (157-399); Red Blood Count 3.68 10^6/uL (3.85-5.65); Red Cell Distribution Width 15.5 % (12.1-15.1)
[2023-09-10 04:39] LABS: White Blood Count 39.76 10^3/uL (3.29-11.43)
[2023-09-10 04:52] LABS: INR 1.25 (0.8-1.2)
[2023-09-10 05:07] LABS: Ammonia 29 umol/L (16-60); Lactate (Lactic Acid level) 0.8 mmol/L (0.5-2.2)
[2023-09-10 05:12] LABS: Albumin Level 3.5 g/dL (3.5-5.2); Alkaline Phosphatase 137 U/L (40-130); C Reactive Protein 158.6 mg/L (0.0-4.9); Calcium 8.6 mg/dL (8.5-10.5); Carbon Dioxide 23 mmol/L (22-29); Chloride 92 mmol/L (98-107); Globulin 3.2 g/dL (1.3-4.6); Glomerular Filtration Rate 7.6 mL/min (90-130); Glucose 101 mg/dL (65-115); Magnesium 3.3 mg/dL (1.7-2.3); Osmolality Calculated 312 mOsm/kg (285-295); Phosphorus 5.9 mg/dL (2.5-4.5); Sodium 134 mmol/L (136-145); Total Bilirubin 0.5 mg/dL (0.15-1.2); Total Protein 6.7 g/dL (6.6-8.7)
[2023-09-10 05:13] LABS: Alanine Aminotransferase 19 U/L (0-41); Anion Gap 25.5 (5-19); Aspartate Amino Transferase 31 U/L (0-40)
[2023-09-10 05:16] LABS: Blood Urea Nitrogen 108 mg/dL (8-23); Potassium 6.5 mmol/L (3.5-5.1)
--- NOTE | 2023-09-10 05:28 | PC.NURSE ---
Addendum entered by Julita Kyle RN 09/10/23 05:36: Pt attempted to pull PICC line and Hemodialysis line, staff at bedside. Pt yelling, I hate Álvaro . No staff named Álvaro on uit. Original Note: Agitation: Pt ripped off all cardiac monitoring, hospital gown, and oxygen. Yelling at staff. Attempted verbal intervention. Pt gripping hemodalysis cath, stating that it needs to come off. Dr. Valverde called. New order for Haldol 5mg IVP ONCE NOW.
[2023-09-10 05:32] LABS: NT Pro B Type Natriuretic Pept 4464 pg/mL (0-125); Procalcitonin 1.01 ng/mL (0-0.5)
[2023-09-10] MEDS: haloperidol inj 5 mg/mL INJ 1 mL IVP (05:35)
[2023-09-10 05:43] LABS: Creatine Phosphokinase 111 U/L (39-308)
[2023-09-10] MEDS: doxycycline 100 MG in sodium chloride 0.9% (plus) 100 ML IV ×2 (06:26→19:53)
[2023-09-10] MEDS: heparin, porcine 1,000 unit/mL INJ 10 mL 1000 UNIT IV (07:38)
--- NOTE | 2023-09-10 07:57 | PC.HD ---
Per atomic physics teacher's verbal orders, heparin 1000 units loading dose administered via venous port of HD catheter at 0738. Also, primary RN reports that patient was attempting to pull his HD catheter overnight. Dressing was changed, catheter was inspected. No indication of damage, dislodgement. Catheter insertion site with no s/s of infection noted.
[2023-09-10] MEDS: meropenem 1,000 MG in sodium chloride 0.9% (plus) 50 ML 100 MG IV ×2 (09:40→21:29)
[2023-09-10] MEDS: pantoprazole DR 40 mg Tablet PO ×2 (09:41→17:47)
[2023-09-10] MEDS: sevelamer 800 mg Tablet PO ×3 (09:41→20:15)
[2023-09-10] MEDS: calcium acetate 667 mg Capsule 1334 MG PO ×3 (09:41→20:15)
[2023-09-10] MEDS: predniSONE 10 mg Tablet PO (09:41)
[2023-09-10] MEDS: fludrocortisone 0.1 mg Tablet 0.100000000000000006 MG PO (09:42)
--- NOTE | 2023-09-10 11:26 | PC.OT ---
OT tx attempted at 0922. Pt receiving dialysis tx at this time. OT to attempt again later if possible.
--- NOTE | 2023-09-10 11:52 | US_ITS ---
WS: [id number] THYROID ULTRASOUND HISTORY: neck mass COMPARISON: None available. This is a very difficult ultrasound evaluation of the thyroid and neck due to patient's habitus. The thyroid is very difficult to visualize. The entire thyroid is not imaged. It would be difficult to ex clude a mass. I did review the prior CT from 09/09/2023 and no mass is noted in the thyroid bed. There are small well-circumscribed masses in the LEFT parotid gland which were previously described o n an MRI from 08/26/2023. These are well-rounded nodules are reidentified in the LEFT parotid on the C T. These could potentially be small benign or malignant parotid neoplasms. These are very nonspecific parotid masses. IMPRESSION: 1. Extremely limited evaluation of the thyroid gland due to body habitus. No mass identified. 2. No adenopathy.
[2023-09-10] MEDS: acyclovir 1,000 MG in sodium chloride 0.9% 250 ML 270 MG IV (12:01)
[2023-09-10] MEDS: midodrine 5 mg TABLET 10 MG PO ×2 (12:11→17:48)
[2023-09-10] MEDS: heparin, porcine 1,000 unit/mL INJ 10 mL 10000 UNIT INTRACATH (12:20)
[2023-09-10 12:21] LABS: Glucose Point of Care 107 mg/dL (70-110)
[2023-09-10] MEDS: ondansetron 2 mg/ML SDV 2 mL 4 MG IVP (12:30)
--- NOTE | 2023-09-10 13:51 | P.PN_ITS ---
Subjective 2 Subjective: - Patient was examined this morning afeb rile overnight, normotensive, off Levophed currently receiving dialysis off Levophed currently on BiPAP, alert to person, not to place, not to time can follow commands ? Was reexamined off BiPAP he is alert to person not to place, not to time he can follow commands according to nursing staff he was able to have breakfast, remains encephalopathic ? He is being prepared for his tagged white blood cell scan ? I had a detailed discussion with patient's ex- and patient's children in the waiting room, had a discussion about patient's hospitalization goals of care ? I had a detailed discussion about patient's encephalopathy, leukocytosis, his deconditioning, his malnutrition, his prolonged hospitalization ? In terms of patient's encephalopathy, he has had an MRI which has not shown any acute stroke, he had a lumbar puncture today which was a bit lackluster, there is no current evidence of bacterial or fungal meningitis in my opinion however will follow cultures, there might be some evidence of some viral meningitis although I feel unlikely I placed him on acyclovir and HSV studies pending, fungal studies pending, cultures so far pending I will continue antibiotics ? I think the cause of his encephalopathy at this point is likely secondary to ICU syndrome, prolonged hospitalization and uremia his BUN is 108 ? I did speak to about my concerns for his uremia likely associate with steroids, we are slowly weaning down the steroids plan on continuing dialysis tomorrow to help with the uremia to see if that improves his mentation however his ammonia levels are normal limits, his blood cultures are within normal and there is within normal, I think that with further sessions of dialysis his mentation should get better ? In terms of his leukocytosis I have done extensive workup, so far his blood cultures have been unremarkable his blood cultures from his port are unremarkable his CSF studies so far are relatively lackluster, although her continue to following them, he has been afebrile, lactate within normal limits he is off pressors, he is white blood cell count is 39,000 CRP is 158, Pro-Nathan is 1, sed rate is in the 70s, I have done a thorough skin exam when he had his lumbar puncture yesterday I was there and when he was on the table, he does have a stage I sacral decubitus ulcer over the sacrum but I do not think that this is a source of infection I do not see any other skin breakdown I done a martinez CT chest abdomen pelvis with another is martinez CT scan of his spine to evaluate for other sources of infection, discitis vertebral osteomyelitis abscesses however I cannot do with contrast given his contrast anaphylaxis, however it would relatively lackluster imaging, he certainly does have a pneumonia on imaging, which radiographically seems to be improving, and he only needs 4 L during the daytime, has been afebrile, -Certainly it could still be his dialysi s catheter that could be infected however the cultures from the port have been unremarkable, he has been afebrile, so I think that it is fairly unlikely but the only for sure way to know is to take out the port and culture the tip, but as his white blood cell count trending downwards, going to hold off continue to watch his cultures, -Echocardiogram although difficult study no evidence of endocarditis, blood cultures have been negative he is afebrile ? I will also order tick panel, various fungal studies, which go to an outside lab, I have stopped the micafungin as I do not see any evidence of fungal infection ? Currently is on vancomycin meropenem is on pretty broad-spectrum antibiotic coverage ? I have ordered a tagged white blood cell scan, we will see what the test results show today, ? Patient does have a history of a neck mass he was supposed to see Dr. Munoz, family is unsure if it was associated with the thyroid or the parathyroid, will do an ultrasound of his neck, will see with a white blood cell scan test results show I ordered a peripheral smear to evaluate for lymphoma leukemia ? In terms of his deconditioned status, he continues to be bedbound, will have to have PT OT work with him, ? He has had a poor nutritional status will have nutrition work at them ? The ultimate goal is that if his mentation improves his white blood cell count improves, and if it is indeed secondary to steroids he can likely go to [facility] on Wednesday or Wednesday based on his clinical progress ? Other options I discussed was continuing medical intervention versus comfort care and easing his pain easing his suffering allowing him to pass with comfortably, next ?currently he cannot make decisions for himself since can be up to his family ? After discussing the risk and benefits of all options family voiced understanding, all question answered they want us to continue medical interventions for now Vitals/I&O/Wt Last Vital Signs Temp 98.2 F 09/10/23 10:53 Pulse 114 H 09/10/23 10:53 Resp 15 09/10/23 10:53 BP 121/80 09/10/23 10:53 Pulse Ox 95 09/10/23 10:00 O2 Del Method BiPAP 09/10/23 08:09 O2 Flow Rate 4 09/10/23 05:00 FiO2 40 09/10/23 08:18 09/09/23 09/10/23 09/10/23 22:59 06:59 14:59 Intake Total 651.75 / 1381.750 350.1 / 1731.850 300 / 300 Output Total 0 / 1694 0 / 1694 2800 / 2800 Balance 651.75 / -312.250 350.1 / 37.850 -2500 / -2500 Weight last 48 hrs Weight 142 kg Weight 144.696 kg Weight 143 kg Weight 144.5 kg Physical Exam 2 Const: COMMON NORMALS: no acute distress EXAM LIMITATIONS: altered mental status ORIENTATION/CONSCIOUSNESS: Yes awake, Yes oriented to person and Yes confused; not oriented to place and not oriented to time HENMT: COMMON NORMALS: normocephalic HEAD & SCALP: normocephalic Eye: COMMON NORMALS: Equal, round and reactive pupils present PUPIL: Yes Equal, round and reactive pupils present Chest: OTHER: Right chest port dialysis catheter in place Resp: COMMON NORMALS: normal respiratory effort, No retractions, No use of accessory muscles and clear to auscultation bilaterally AUSCULTATION: clear to auscultation bilaterally Cardio: COMMON NORMALS: regular rate, regular rhythm, S1 normal heart sound present and S2 normal heart sound present RATE: regular rate RHYTHM: r egular rhythm HEART SOUNDS: S1 normal heart sound present and S2 normal heart sound present GI: COMMON NORMALS: Normal to inspection, nondistended, normoactive bowel sounds present and non-tender Extremity: COMMON NORMALS: no pedal edema Neuro: SENSORIUM/ORIENTATION: Yes oriented to person, No oriented to place and No oriented to time Data 09/10/23 04:25 09/10/23 04:25 Micro: Microbiology 09/09/23 14:19 Gram Stain - Final Cerebrospinal Fluid A&P Assessment and plan (1) Hypercapnic respiratory failure: Qualifiers: Chronicity: acute on chronic Qualified Code(s): J96.22 - Acute and chronic respiratory failure with hypercapnia (2) ESRD (end stage renal disease): (3) Hypertension: Qualifiers: Hypertension type: unspecified Qualified Code(s): I10 - Essential (primary) hypertension (4) Coronary artery disease: Qualifiers: Associated angina: without angina Coronary Disease-Associated Artery/Lesion type: unspecified vessel or lesion type [place] vs. transplanted heart: [place] heart Qualified Code(s): I25.10 - Atherosclerotic heart disease of [place] coronary artery without angina pectoris (5) Atrial fibrillation: Qualifiers: Atrial fibrillation type: unspecified Qualified Code(s): I48.91 - Unspecified atrial fibrillation (6) NATHALY (obstructive sleep apnea): (7) Fall: Qualifiers: Encounter type: subsequent encounter Qualified Code(s): W19.XXXD - Unspecified fall, subsequent encounter (8) Physical deconditioning: (9) Elevated WBC count: Qualifiers: Leukocytosis type: unspecified Qualified Code(s): D72.829 - Elevated white blood cell count, unspecified (10) Acute encephalopathy: (11) Septic shock: (12) Uremic encephalopathy: (13) Dysautonomia: (14) Post ICU syndrome: (15) Intensive care (ICU) myopathy: (16) Protein calorie malnutrition: Plan Septic shock, likely secondary to bilateral lower lobe pneumonia, resolved -WBC count trending downwards, CRP elevated, Pro-Nathan elevated, sed rate elevated ? Initially when patient was admitted there was concerns for pneumonia he was found to vancomycin meropenem, which was eventually discontinued as he completed 7 days however -CT CHEST ? [place] [id number] IMPRESSION: 1. Bilateral lower lobe pneumonia, left worse than right. 2. There are emphysematous changes in the lungs. 3. Multivessel atherosclerotic disease which involves the coronary arteries. -Repeat CT scan abdomen pelvis and chest, and spine, done without contrast due to contrast allergy, no new acute findings -Does not urinate -He has dialysis port can be a source of infection, blood cultures from the port so far negative, this fairly unlikely -Repeat blood cultures, so far negative -repeat CAT scan of the spine, without contrast, No evidence of discitis, vertebral osteomyelitis, or epidural abscess ? Does have poor dentition but no evidence of dental abscess ? Certainly meningitis could be a source infection as he has waxing waning mentation, episodes of confusion afebrile, I doubt bacterial meningitis, as he has been on broad-spectrum antibiotic therapy but certainly viral meningitis or even fungal meningitis, lumbar puncture relatively lackluster, micafungin has been stopped continue IV antibiotics added acyclovir for possible viral meningitis -Follow CSF culture so far negative ? Patient's Fungitell was positive he has no immunocompromise state, however certainly fungal infection could be possibility, so for no significant events of fungal infection will stop micafungin ? Tagged white blood cell scan ordered -Fungal studies ordered, CSF viral studies ordered ? Plan, ? Vancomycin -Broaden to meropenem ? Micafungin -doxyycline -Midodrine -Albumin ? Status stable, prognosis guarded ? DNR/DNI ? Antiplatelet and anticoagulant therapy heparin Dysautonomia -Likely secondary to Parkinson's disease, likely etiology behind patient's episodes of hypotension with dialysis and during the day, as patient's lactic acid is within normal limits, no current evidence of septic shock, ? Continue midodrine Acute encephalopathy ? Alert to person, to place, not to time ? Does follow commands ? Likely some component initially secondary polypharmacy related to permitting, Lyrica which has been discontinued ? Continues to have intermittent episodes of encephalopathy concerns for septic shock, sepsis as an etiology as above, however resolving -Uremic encephalopathy playing a role, spoke to nephrology, will receive a session of dialysis tomorrow -Prolonged hospitalization, ICU syndrome Uremic encephalopathy ? Likely sec to steroids, will wean steroids End-stage renal disease, on dialysis, requiring pressors with dialysis Diminished pulses likely secondary to sepsis septic shock, resolved CONCLUSIONS 1. Noncompressible ankle vessels bilaterally 2. Abnormal Doppler waveforms, may suggest collateral filling in the infrapopliteal was vessels, bilaterally. 3. Consider CTA to better evaluate peripheral arteries, if clinically indicated COPD exacerbation, resolved Acute hypercapnic respiratory failure, needs to use BiPAP scheduled during the night Hypertension Atrial fibrillation, continue amiodarone, anticoagulation currently on hold, history of GI bleeds history of gi bleeds Morbid obesity Physical deconditioning, protein calorie malnutrition, PT OT, speech therapy eval, dietary eval - Patient was examined this morning afebrile overnight, normotensive, off Levophed currently receiving dialysis off Levophed currently on BiPAP, alert to person, not to place, not to time can follow commands ? Was reexamined off BiPAP he is alert to person not to place, not to time he can follow commands according to nursing staff he was able to have breakfast, remains encephalopathic ? He is being prepared for his tagged white blood cell scan ? I had a detailed discussion with patient's ex- and patient's children in the waiting room, had a discussion about patient's hospitalization goals of care ? I had a detailed discussion about patient's encephalopathy, leukocytosis, his deconditioning, his malnutrition, his prolonged hospitalization ? In terms of patient's encephalopathy, he has had an MRI which has not shown any acute stroke, he had a lumbar puncture today which was a bit lackluster, there is no current evidence of bacterial or fungal meningitis in my opinion however will follow cultures, there might be some evidence of some viral meningitis although I feel unlikely I placed him on acyclovir and HSV studies pending, fungal studies pending, cultures so far pending I will continue antibiotics ? I think the cause of his encephalopathy at this point is likely secondary to ICU syndrome, prolonged hospitalization and uremia his BUN is 108 ? I did speak to about my concerns for his uremia likely associate with steroids, we are slowly weaning down the steroids plan on continuing dialysis tomorrow to help with the uremia to see if that improves his mentation however his ammonia levels are normal limits, his blood cultures are within normal and there is within normal, I think that with further sessions of dialysis his mentation should get better ? In terms of his leukocytosis I have done extensive workup, so far his blood cultures have been unremarkable his blood cultures from his port are unremarkable his CSF studies so far are relatively lackluster, although her continue to following them, he has been afebrile, lactate within normal limits he is off pressors, he is white blood cell count is 39,000 CRP is 158, Pro-Nathan is 1, sed rate is in the 70s, I have done a thorough skin exam when he had his lumbar puncture yesterday I was there and when he was on the table, he does have a stage I sacral decubitus ulcer over the sacrum but I do not think that this is a source of infection I do not see any other skin breakdown I done a martinez CT chest abdomen pelvis with another is martinez CT scan of his spine to evaluate for other sources of infection, discitis vertebral osteomyelitis abscesses however I cannot do with contrast given his contrast anaphylaxis, however it would relatively lackluster imaging, he certainly does have a pneumonia on imaging, which radiographically seems to be improving, and he only needs 4 L during the daytime, has been afebrile, -Certainly it could still be his dialysis catheter that could be infected however the cultures from the port have been unremarkable, he has been afebrile, so I think that it is fairly unlikely but the only for sure way to know is to take out the port and culture the tip, but as his white blood cell count trending downwards, going to hold off continue to watch his cultures, -Echocardiogram although difficult study no evidence of endocarditis, blood cultures have been negative he is afebrile ? I will also order tick panel, various fungal studies, which go to an outside lab, I have stopped the micafungin as I do not see any evidence of fungal infection ? Currently is on vancomycin meropenem is on pretty broad-spectrum antibiotic coverage ? I have ordered a tagged white blood cell scan, we will see what the test results show today, ? Patient does have a history of a neck mass he was supposed to see Dr. Munoz, family is unsure if it was associated with the thyroid or the parathyroid, will do an ultrasound of his neck, will see with a white blood cell scan test results show I ordered a peripheral smear to evaluate for lymphoma leukemia ? In terms of his deconditioned status, he continues to be bedbound, will have to have PT OT work with him, ? He has had a poor nutritional status will have nutrition work at them ? The ultimate goal is that if his mentation improves his white blood cell count improves, and if it is indeed secondary to steroids he can likely go to [facility] on Wednesday or Wednesday based on his clinical progress ? Other options I discussed was continuing medical intervention versus comfort care and easing his pain easing his suffering allowing him to pass with comfortably, next ?currently he cannot make decisions for himself since can be up to his family ? After discussing the risk and benefits of all options family voiced understanding, all question answered they want us to continue medical interventions for now Attestations 2 Medical Necessity Statement*: Patient requires hospitalization for encephalopathy, leukocytosis, deconditioning, protein, malnutrition, respiratory failure, uremic encephalopathy Diagnoses Acute on chronic respiratory failure with hypercapnia J96.22 Chronicity: acute on chronic ESRD (end stage renal disease) N18.6 Hypertension, unspecified type I10 Hypertension type: unspecified Coronary artery disease involving [place] heart without angina pectoris, unspecified vessel or lesion type I25.10 Associated angina: without angina Coronary Disease-Associated Artery/Lesion type: unspecified vessel or lesion type [place] vs. transplanted heart: [place] heart Atrial fibrillation, unspecified type I48.91 Atrial fibrillation type: unspecified NATHALY (obstructive sleep apnea) G47.33 Fall, subsequent encounter W19.XXXD Encounter type: subsequent encounter Physical deconditioning R53.81 Leukocytosis, unspecified type D72.829 Leukocytosis type: unspecified Acute encephalopathy G93.40 Septic shock A41.9; R65.21 Uremic encephalopathy G93.49; N19 Dysautonomia G90.1 Post ICU syndrome Intensive care (ICU) myopathy G72.81 Protein calorie malnutrition E46
--- NOTE | 2023-09-10 14:40 | PC.SLP ---
WIRE LOOP MACHINE OPERATOR attempted to see pt. Pt not wearing oxygen and refused oral intake and to work with WIRE LOOP MACHINE OPERATOR at this time.
--- NOTE | 2023-09-10 15:07 | PC.OT ---
OT treatment attempted with pt declining services; will attempt at later date.
--- NOTE | 2023-09-10 16:23 | P.PN_ITS ---
Subjective 2 Subjective: getting HD Medications: Reviewed: Yes Vitals/I&O/Wt Last Vital Signs Temp 98.3 F 09/10/23 14:00 Pulse 87 09/10/23 14:00 Resp 18 09/10/23 14:00 BP 131/73 09/10/23 14:00 Pulse Ox 88 L 09/10/23 14:00 O2 Del Method Room Air 09/10/23 14:00 O2 Flow Rate 2 09/10/23 14:00 FiO2 40 09/10/23 08:18 09/10/23 09/10/23 09/10/23 06:59 14:59 22:59 Intake Total 350.1 / 1731.850 350 / 350 Output Total 0 / 1694 2800 / 2800 Balance 350.1 / 37.850 -2450 / -2450 Weight last 48 hrs Weight 142 kg Weight 144.696 kg Weight 143 kg Weight 144.5 kg Physical Exam 2 Narrative: awake , on bipap no distress S1S2 RRR per report Lungs clear per report no edema Data 09/10/23 04:25 09/10/23 04:25 Micro: Microbiology 09/09/23 14:19 Gram Stain - Final Cerebrospinal Fluid A&P Assessment and plan (1) ESRD (end stage renal disease): Plan 1. End-stage renal disease: On MWF schedule as patient outpatient ,HD today 3. Acute on chronic respiratory failure: Secondary to sleep apnea COPD, now has pneumonia, on BIPAP 4. History of A-fib 5. aNEMIA : RENAET with HD 6. metabolic encephalopathy, 7. Hyperkalemia , low K diet , run 1K bath with hD 8 MBD : add renvela 9. Hypotension : improved ,s/p pressors, on midodrine - on steroids and IV albumin and Midodrine , weaning steroids Patient evaluated using audiovisual cart. Time spent 20 minutes. Attestations 2 Medical Necessity Statement*: PER MANUEL Coding Level of Care Code Acute Code for Chg Fwd Diagnoses ESRD (end stage renal disease) N18.6
--- NOTE | 2023-09-10 17:27 | PC.NURSE ---
Shit SUmmary: Patient went to Nuclear medicine for WBC scan, results in electronic chart, Lumbar puncture results also available. Patient's mental status has improved throughout the day, initially he was very lethargic and would refuse to talk. Now he is alert, obeys commands, will answer questions, oriented to person, and place. Family reports that he normally becomes more alert later in the day. Has eaten very little but appetite is improving. Blood pressure has remained within normal limits today, no need for pressors. Up to a chair for dinner. 2.5 L fluid removed during dialysis.
[2023-09-10] MEDS: atorvastatin 40 mg Tablet PO (17:39)
[2023-09-10] MEDS: heparin 5,000 unit/mL INJ 1 mL 5000 UNIT SUBCUT (17:48)
--- NOTE | 2023-09-10 18:07 | NM_ITS ---
WS: [id number] NUCLEAR MEDICINE TAGGED WHITE BLOOD CELL SCAN HISTORY: spectic shock, unknown origin COMPARISON: CT chest, abdomen and pelvis 09/09/2023. TECHNIQUE: 28.6 mCi of TC 99m Ceretec tagged white blood cells are injected intravenously. Whole body imaging is performed in the anterior and posterior planes. Whole body imaging is performed in the an terior and posterior planes obtained at 2 hours. Activity is noted in the lungs, liver and spleen as expected. There is no focal area of uptake within the spine or soft tissues to suggest an infectious process. The gallbladder does not appear to conta in increased uptake of the Ceretec. There is mild increased uptake throughout the vessels of the lowe r extremities. This is probably due to delayed excretion of the Ceretec secondary to patient's renal failure. IMPRESSION: No abscess or identifiable soft tissue abnormality inflammation.
[2023-09-10 18:50] LABS: Blastomyces Antigen Interpret NEGATIVE; Blastomyces Antigen Result NONE DETECTED; Histoplasma Antigen (Quant) NONE DETECTED; Histoplasma Antigen Interpreta NEGATIVE; Histoplasma Antigen Specimen PLASMA
[2023-09-10] MEDS: acetaminophen 325 mg Tablet PO (20:40)
[2023-09-10] MEDS: morphine 4 mg/mL SDV 1 mL 1 MG IVP (21:21)
--- NOTE | 2023-09-10 21:39 | PC.NURSE ---
Patient started being erratic and saying why are you fucking with me . This nurse asked the patient what they meant and they kept repeating the same sentence. Patient was verbally de escalated and they settled down and they asked for their phone so they could call their . Phone was handed to patient.
[2023-09-11] VITALS (50 sets, daily range): BP systolic 92–160; BP diastolic 43–123; PULSE 98–137; RESP 13–30; TEMP 35.7–37.2; O2SAT 86–96; BMI 43.2
[2023-09-11] MEDS: midodrine 5 mg TABLET 10 MG PO (00:46)
[2023-09-11] MEDS: morphine 4 mg/mL SDV 1 mL 1 MG IVP ×3 (03:02→22:44)
[2023-09-11] MEDS: albuterol 2.5 mg/3 mL Neb INHALATION ×3 (03:17→20:18)
[2023-09-11 04:30] LABS: Basophils # 0.1 10^3/uL (0.0-0.1); Basophils % 0.3 %; Eosinophils # 0.1 10^3/uL (0.0-0.8); Eosinophils % 0.3 %; Hematocrit 34.9 % (37-53); Lymphocytes # 1.6 10^3/uL (0.8-4.8); Lymphocytes % 5.1 %; Mean Corpuscular HGB Conc 31.8 g/dL (30-55); Mean Corpuscular Hemoglobin 29.4 pg (27-33); Mean Corpuscular Volume 92.6 fl (82-101); Mean Platelet Volume 11.4 fL (7.4-10.4); Monocytes # 2.9 10^3/uL (0.2-0.9); Neutrophils # 26.84 10^3/uL (1.8-7.7); Nucleated Red Blood Cells % 0.1 %; Platelet Count 478 10^3/cmm (157-399); Red Blood Count 3.77 10^6/uL (3.85-5.65); Red Cell Distribution Width 15.8 % (12.1-15.1)
[2023-09-11 04:42] LABS: Alanine Aminotransferase 19 U/L (0-41); Albumin Level 3.5 g/dL (3.5-5.2); Alkaline Phosphatase 168 U/L (40-130); Aspartate Amino Transferase 27 U/L (0-40); Blood Urea Nitrogen 75 mg/dL (8-23); C Reactive Protein 98.4 mg/L (0.0-4.9); Carbon Dioxide 28 mmol/L (22-29); Chloride 95 mmol/L (98-107); Creatinine Clr Calc Pharmacy 17.3386; Globulin 3.5 g/dL (1.3-4.6); Glomerular Filtration Rate 9.7 mL/min (90-130); Glucose 120 mg/dL (65-115); Magnesium 2.9 mg/dL (1.7-2.3); Osmolality Calculated 309 mOsm/kg (285-295); Phosphorus 4.5 mg/dL (2.5-4.5); Sodium 138 mmol/L (136-145); Total Bilirubin 0.5 mg/dL (0.15-1.2)
[2023-09-11 04:44] LABS: White Blood Count 31.99 10^3/uL (3.29-11.43)
[2023-09-11 04:49] LABS: NT Pro B Type Natriuretic Pept 4570 pg/mL (0-125); Procalcitonin 0.88 ng/mL (0-0.5)
[2023-09-11 05:00] LABS: Creatine Phosphokinase 81 U/L (39-308)
[2023-09-11 05:04] LABS: Ammonia 37 umol/L (16-60)
[2023-09-11] MEDS: heparin 5,000 unit/mL INJ 1 mL 5000 UNIT SUBCUT ×2 (05:37→18:26)
[2023-09-11] MEDS: fluoxetine 20 mg Capsule 60 MG PO (05:37)
[2023-09-11 06:37] LABS: INR 1.24 (0.8-1.2)
--- NOTE | 2023-09-11 07:29 | PC.NURSE ---
0700 medications held per dialysis.
[2023-09-11] MEDS: heparin, porcine 1,000 unit/mL INJ 10 mL 1000 UNIT IV (07:34)
--- NOTE | 2023-09-11 07:45 | PC.HD ---
HD initiated at 0738 per world designer's verbal orders. Heparin 1000 units loading dose administered via venous port of HD catheter at 0734 per world designer's orders.
[2023-09-11] MEDS: heparin, porcine 1,000 unit/mL INJ 10 mL 10000 UNIT INTRACATH (10:01)
[2023-09-11 10:17] LABS: ABG PCO2 42.9 mmHg (35-45); ABG PH Result 7.42 (7.35-7.45); Alveolar-Arterial Oxygen Gradi 7.8 mmHg (5-10); Arterial Blood Gas Hematocrit 39.9 % (42-52); Blood Gas Allen Test Pos; Blood Gas Operator Identificat MONRO; Blood Gas Sample Site Brachial, left; Blood Gas Sample Type Arterial; Carboxyhemoglobin 0.8 %THgb (0.4-20.1); HCO3 ABG 27.9 mmol/L (22-26); HGB O2 Sat 95.9 % (95-100); Ionized Calcium Level - ABG 1.2 mmol/L (1.1-1.4); Methemoglobin 0.2 % (0.4-1.5); Oxygen Device NC; Oxygen Saturation ABG 96.9; PO2 ABG 87.5 mmHg (80.0-100.0); PO2 FiO2 Ratio Arterial Blood 0; Potassium Level - ABG 3.5 mmol/L (3.5-5.0)
[2023-09-11] MEDS: calcium acetate 667 mg Capsule 1334 MG PO ×3 (10:38→20:18)
[2023-09-11] MEDS: pantoprazole DR 40 mg Tablet PO ×2 (10:38→18:26)
[2023-09-11] MEDS: sevelamer 800 mg Tablet PO ×3 (10:39→20:18)
[2023-09-11] MEDS: predniSONE 10 mg Tablet PO (10:39)
[2023-09-11] MEDS: aspirin 81 mg EC Tablet PO (10:40)
[2023-09-11] MEDS: fludrocortisone 0.1 mg Tablet 0.100000000000000006 MG PO (10:40)
[2023-09-11] MEDS: doxycycline 100 MG in sodium chloride 0.9% (plus) 100 ML IV ×2 (10:40→20:22)
[2023-09-11] MEDS: meropenem 1,000 MG in sodium chloride 0.9% (plus) 50 ML 100 MG IV ×2 (10:41→21:58)
--- NOTE | 2023-09-11 11:00 | PC.SLP ---
Attempt to see pt but unable to see pt due to dialysis. Will attempt tomorrow.
[2023-09-11] MEDS: acyclovir 1,000 MG in sodium chloride 0.9% 250 ML 270 MG IV (11:14)
[2023-09-11] MEDS: vancomycin 1,000 MG in sodium chloride 0.9% 250 ML 250 MG IV (12:23)
--- NOTE | 2023-09-11 13:13 | PC.NUTR ---
Consult for malnutrition received. Continue Nepro BID, however If EN medically necessary d/t continued poor PO intake, recommend Nepro 1.8 beginning @ 15 mls/hr, increasing 10mls Q8H as tolerated with a goal rate of 45 mls/hr - FWF per MD's discretion. Details in RD assessment.
--- NOTE | 2023-09-11 13:25 | ECG_ITS ---
[facility] Test Date: 2023-09-11 Pat Name: Artie Quiles Department: Room: ICU11 Gender: Male [employer] Message [employer]ker Developer: : [id number] Requested By: Moisés Landon Order Number: [id number] José Antonio MD: Gadiel Kinsey M.D. Measurements Intervals Simpson Rate: 134 P: 0 MS: 0 QRS: 63 QRSD: 96 T: -14 QT: 302 QTc: 452 Interpretive Statements ATRIAL FIBRILLATION WITH RAPID VENTRICULAR RESPONSE MINIMAL ST DEPRESSION [0.025+ mV ST DEPRESSION] ABNORMAL QRS-T ANGLE [QRS-T AXIS DIFFERENCE > 60] Compared to ECG 09/01/2023 01:20:24 Sinus rhythm no longer present First degree AV block no longer present Left-axis deviation no longer present ST (T wave) deviation still present Electronically Signed On 09-11-2023 13:46:44 CDT by Gadiel Kinsey M.D. [email or web address]
--- NOTE | 2023-09-11 14:24 | PM.PN ---
Subjective Subjective: - Patient was seen this morning, he is alert to person, to place, not to time, he has intermittent episodes of confusion, can follow commands can squeeze my fingers, ? He is receiving dialysis, no episodes of hypotension during dialysis, remains afebrile overnight ? Patient's family was at bedside, spoke in detail about the decreasing white count down to 31.99, continue IV antibiotics, his tagged white blood cell scan did not have any acute findings, his mentation does seem to be improving, appetite seems to be improving will continue PT OT, speech therapy eval, up out of bed, monitor hemodynamics continue IV antibiotics until cultures are negative As patient's family wants us to consider potentially transferring him to [facility] in [place] instead of [place] as closer to family ? Ordered ABG due to episodes of confusion early in the morning, with family at bedside Vitals/I&O/Wt Last Vital Signs Temp 96.3 F L 09/11/23 12:35 Pulse 137 H 09/11/23 14:00 Resp 21 H 09/11/23 14:00 BP 115/65 09/11/23 14:00 Pulse Ox 88 L 09/11/23 14:00 O2 Del Method Nasal Cannula 09/11/23 14:00 O2 Flow Rate 2 09/11/23 14:00 FiO2 40 09/11/23 13:00 09/10/23 09/11/23 09/11/23 22:59 06:59 14:59 Intake Total 660 / 1010 240 / 1250 1120 / 1120 Output Total 2800 / 2800 Balance 660 / -1790 240 / -1550 -1680 / -1680 Weight last 48 hrs Weight 140 kg Weight 140.67 kg Weight 142 kg Weight 144.696 kg Physical Exam Const: COMMON NORMALS: no acute distress Resp: COMMON NORMALS: normal respiratory effort, No retractions, No use of accessory muscles and clear to auscultation bilaterally AUSCULTATION: clear to auscultation bilaterally Cardio: COMMON NORMALS: regular rate, regular rhythm, S1 normal heart sound present and S2 normal heart sound present RATE: regular rate RHYTHM: regular rhythm HEART SOUNDS: S1 normal heart sound present and S2 normal heart sound present GI: COMMON NORMALS: Normal to inspection, nondistended, normoactive bowel sounds present and non-tender Extremity: COMMON NORMALS: no pedal edema Psych: COMMON NORMALS: mental status grossly normal Data 09/11/23 03:55 09/11/23 03:55 Micro: Microbiology 09/06/23 09:18 Blood Culture - Final Blood NO GROWTH AFTER 5 DAYS 09/06/23 09:25 Blood Culture - Final Blood NO GROWTH AFTER 5 DAYS 09/06/23 08:20 Blood Culture - Final Blood NO GROWTH AFTER 5 DAYS 09/06/23 08:11 Blood Culture - Final Blood NO GROWTH AFTER 5 DAYS 09/09/23 14:19 Gram Stain - Final Cerebrospinal Fluid A&P Assessment and plan (1) Deep tissue injury: (2) Hypercapnic respiratory failure: Qualifiers: Chronicity: acute on chronic Qualified Code(s): J96.22 - Acute and chronic respiratory failure with hypercapnia (3) ESRD (end stage renal disease): (4) Hypertension: Qualifiers: Hypertension type: unspecified Qualified Code(s): I10 - Essential (primary) hypertension (5) Coronary artery disease: Qualifiers: Associated angina: without angina Coronary Disease-Associated Artery/Lesion type: unspecified vessel or lesion type [place] vs. transplanted heart: [place] heart Qualified Code(s): I25.10 - Atherosclerotic heart disease of [place] coronary artery without angina pectoris (6) Atrial fibrillation: Qualifiers: Atrial fibrillation type: unspecified Qualified Code(s): I48.91 - Unspecified atrial fibrillation (7) NATHALY (obstructive sleep apnea): (8) Fall: Qualifiers: Encounter type: subsequent encounter Qualified Code(s): W19.XXXD - Unspecified fall, subsequent encounter (9) Physical deconditioning: (10) Elevated WBC count: Qualifiers: Leukocytosis type: unspecified Qualified Code(s): D72.829 - Elevated white blood cell count, unspecified (11) Acute encephalopathy: (12) Septic shock: (13) Uremic encephalopathy: (14) Dysautonomia: (15) Post ICU syndrome: (16) Intensive care (ICU) myopathy: (17) Protein calorie malnutrition: Plan Septic shock, likely secondary to bilateral lower lobe pneumonia, resolved -WBC count trending downwards, CRP elevated, Pro-Nathan elevated, sed rate elevated ? Initially when patient was admitted there was concerns for pneumonia he was found to vancomycin meropenem, which was eventually discontinued as he completed 7 days however -CT CHEST ? CT/[place] [id number] IMPRESSION: 1. Bilateral lower lobe pneumonia, left worse than right. 2. There are emphysematous changes in the lungs. 3. Multivessel atherosclerotic disease which involves the coronary arteries. -Repeat CT scan abdomen pelvis and chest, and spine, done without contrast due to contrast allergy, no new acute findings -Does not urinate -He has dialysis port can be a source of infection, blood cultures from the port so far negative, this fairly unlikely -Repeat blood cultures, so far negative -repeat CAT scan of the spine, without contrast, No evidence of discitis, vertebral osteomyelitis, or epidural abscess ? Does have poor dentition but no evidence of dental abscess ? Certainly meningitis could be a source infection as he has waxing waning mentation, episodes of confusion afebrile, I doubt bacterial meningitis, as he has been on broad-spectrum antibiotic therapy but certainly viral meningitis or even fungal meningitis, lumbar puncture relatively lackluster, micafungin has been stopped continue IV antibiotics added acyclovir for possible viral meningitis -Follow CSF culture so far negative ? Patient's Fungitell was positive he has no immunocompromise state, however certainly fungal infection could be possibility, so for no significant events of fungal infection will stop micafungin ? Tagged white blood cell scan ordered, no acute findings -Fungal studies ordered, CSF viral studies ordered ? Plan, ? Vancomycin -meropenem ? Micafungin stopped 09/10/2023 -Continue acyclovir -doxyycline -Midodrine -Albumin ? Status stable, prognosis guarded ? DNR/DNI ? Antiplatelet and anticoagulant therapy heparin Dysautonomia -Likely secondary to Parkinson's disease, likely etiology behind patient's episodes of hypotension with dialysis and during the day, as patient's lactic acid is within normal limits, no current evidence of septic shock, ? Continue midodrine Acute encephalopathy ? Alert to person, to place, not to time ? Does follow commands ? Likely some component initially secondary polypharmacy related to permitting, Lyrica which has been discontinued ? Continues to have intermittent episodes of encephalopathy concerns for septic shock, sepsis as an etiology as above, however resolving -Uremic encephalopathy playing a role, spoke to nephrology, will receive a session of dialysis tomorrow -Prolonged hospitalization, ICU syndrome Uremic encephalopathy, improving ? Likely sec to steroids, will wean steroids End-stage renal disease, on dialysis, requiring pressors with dialysis Diminished pulses likely secondary to sepsis septic shock, resolved CONCLUSIONS 1. Noncompressible ankle vessels bilaterally 2. Abnormal Doppler waveforms, may suggest collateral filling in the infrapopliteal was vessels, bilaterally. 3. Consider CTA to better evaluate peripheral arteries, if clinically indicated COPD exacerbation, resolved Acute hypercapnic respiratory failure, needs to use BiPAP scheduled during the night Hypertension Atrial fibrillation, currently back in A-fib with RVR, started on amiodarone drip with amiodarone bolus history of gi bleeds Morbid obesity Physical deconditioning, protein calorie malnutrition, PT OT, speech therapy eval, dietary eval -Plan for today spoke to nephrology, spoke to nursing staff, spoke to patient, spoke to patient's family, spoke to dialysis nurse, plan on continue IV antibiotics, continue acyclovir, follow blood cultures, follow CSF studies, up out of bed, PT OT, uremia improving with dialysis, patient went into A-fib with RVR this evening start amiodarone bolus with amiodarone drip Attestations Medical Necessity Statement*: Patient requires hospitalization for encephalopathy, leukocytosis, deconditioning, protein, malnutrition, end-stage renal disease on dialysis, uremia Diagnoses Deep tissue injury T14.8XXA Acute on chronic respiratory failure with hypercapnia J96.22 Chronicity: acute on chronic ESRD (end stage renal disease) N18.6 Hypertension, unspecified type I10 Hypertension type: unspecified Coronary artery disease involving [place] heart without angina pectoris, unspecified vessel or lesion type I25.10 Associated angina: without angina Coronary Disease-Associated Artery/Lesion type: unspecified vessel or lesion type [place] vs. transplanted heart: [place] heart Atrial fibrillation, unspecified type I48.91 Atrial fibrillation type: unspecified NATHALY (obstructive sleep apnea) G47.33 Fall, subsequent encounter W19.XXXD Encounter type: subsequent encounter Physical deconditioning R53.81 Leukocytosis, unspecified type D72.829 Leukocytosis type: unspecified Acute encephalopathy G93.40 Septic shock A41.9; R65.21 Uremic encephalopathy G93.49; N19 Dysautonomia G90.1 Post ICU syndrome Intensive care (ICU) myopathy G72.81 Protein calorie malnutrition E46
[2023-09-11 14:55] LABS: Blastomyces AB Immunodiffusion Negative (Negative); Blastomyces Dermatitidis AB <1:8 titer (<1:8)
[2023-09-11] MEDS: amiodarone 150 MG/100 ML PREMIX 400 MG IV (15:31)
--- NOTE | 2023-09-11 16:37 | P.PN_ITS ---
Subjective 2 Subjective: getting hd Medications: Reviewed: Yes Vitals/I&O/Wt Last Vital Signs Temp 96.3 F L 09/11/23 12:35 Pulse 137 H 09/11/23 14:00 Resp 16 09/11/23 15:40 BP 115/65 09/11/23 14:00 Pulse Ox 92 09/11/23 15:40 O2 Del Method Nasal Cannula 09/11/23 14:00 O2 Flow Rate 2 09/11/23 14:00 FiO2 40 09/11/23 13:00 09/11/23 09/11/23 09/11/23 06:59 14:59 22:59 Intake Total 240 / 1250 1180 / 1180 100 / 1280 Output Total 2800 / 2800 Balance 240 / -1550 -1620 / -1620 100 / -1520 Weight last 48 hrs Weight 140 kg Weight 140.67 kg Weight 142 kg Weight 144.696 kg Physical Exam 2 Narrative: awake , no distress S1S2 RRR per report Lungs clear per report no edema Data 09/11/23 03:55 09/11/23 03:55 Micro: Microbiology 09/09/23 14:19 Gram Stain - Final Cerebrospinal Fluid CSF Culture - Preliminary 09/06/23 09:18 Blood Culture - Final Blood NO GROWTH AFTER 5 DAYS 09/06/23 09:25 Blood Culture - Final Blood NO GROWTH AFTER 5 DAYS 09/06/23 08:20 Blood Culture - Final Blood NO GROWTH AFTER 5 DAYS 09/06/23 08:11 Blood Culture - Final Blood NO GROWTH AFTER 5 DAYS A&P Assessment and plan (1) ESRD (end stage renal disease): Plan 1. End-stage renal disease: On MWF schedule as patient outpatient ,HD today 3. Acute on chronic respiratory failure: Secondary to sleep apnea COPD, now has pneumonia, on BIPAP 4. History of A-fib 5. aNEMIA : RENATE with HD 6. metabolic encephalopathy, 7. Hyperkalemia , low K diet , run 1K bath with hD 8 MBD : add renvela 9. Hypotension : improved ,s/p pressors, on midodrine - on steroids and IV albumin and Midodrine , weaning steroids Patient evaluated using audiovisual cart. Time spent 20 minutes. Attestations 2 Medical Necessity Statement*: per lauren Coding Level of Care Code Acute Code for Chg Fwd Diagnoses ESRD (end stage renal disease) N18.6
[2023-09-11] MEDS: atorvastatin 40 mg Tablet PO (18:26)
[2023-09-12] VITALS (34 sets, daily range): BP systolic 98–168; BP diastolic 50–116; PULSE 79–144; RESP 14–79; TEMP 36.5–37.3; O2SAT 89–98
--- NOTE | 2023-09-12 01:31 | PC.NURSE ---
Addendum entered by Julita Kyle RN 09/12/23 02:07: Pt yelling to get his . Wide called to update on situation, she states that she will not be coming into the hospital- she believe that her presence would only agitate him more. Addendum entered by Julita Kyle RN 09/12/23 01:56: Dr. Valverde called @0153. Updated on continued attempts to pull at lines (Hemodialysis catheter, PICC, IV cardiac monitoring). New order for one-to-one observation. Addendum entered by Julita Kyle RN 09/12/23 01:50: Security at bedside. Pt yelled, I'm gonna kill myself if I cant get out of here . Original Note: Agitation: Extreme agitation. Pt is yelling that he has been poisoned. Cussing, stating, get the hell out of here and to hell with you . Multiple attempts to pull at lines, including PICC, hemodialysis catheter, and cardiac monitoring. Dr. Valverde called @0128. New order for 5mg IVP Haldol ONCE NOW.
[2023-09-12] MEDS: haloperidol inj 5 mg/mL INJ 1 mL IVP (01:37)
[2023-09-12 03:59] LABS: Basophils % 0.1 %; Eosinophils # 0.2 10^3/uL (0.0-0.8); Eosinophils % 0.9 %; Hematocrit 35.4 % (37-53); Lymphocytes # 1.6 10^3/uL (0.8-4.8); Lymphocytes % 7.1 %; Mean Corpuscular HGB Conc 31.4 g/dL (30-55); Mean Corpuscular Hemoglobin 28.9 pg (27-33); Mean Corpuscular Volume 92.2 fl (82-101); Mean Platelet Volume 11.4 fL (7.4-10.4); Monocytes # 2.3 10^3/uL (0.2-0.9); Monocytes % 10.1 %; Neutrophils # 18.12 10^3/uL (1.8-7.7); Nucleated Red Blood Cells % 0.1 %; Platelet Count 457 10^3/cmm (157-399); Red Blood Count 3.84 10^6/uL (3.85-5.65); Red Cell Distribution Width 15.6 % (12.1-15.1); White Blood Count 22.38 10^3/uL (3.29-11.43)
[2023-09-12 04:17] LABS: Vancomycin Random 35.7 ug/mL (20.0-40.0)
[2023-09-12 04:19] LABS: Lactate (Lactic Acid level) 0.9 mmol/L (0.5-2.2)
[2023-09-12 04:29] LABS: NT Pro B Type Natriuretic Pept 3572 pg/mL (0-125); Procalcitonin 0.66 ng/mL (0-0.5)
[2023-09-12 04:41] LABS: Creatine Phosphokinase 55 U/L (39-308)
[2023-09-12 05:20] LABS: Alanine Aminotransferase 14 U/L (0-41); Albumin Level 3.5 g/dL (3.5-5.2); Alkaline Phosphatase 131 U/L (40-130); Anion Gap 21.3 (5-19); Aspartate Amino Transferase 16 U/L (0-40); Blood Urea Nitrogen 58 mg/dL (8-23); Calcium 9.4 mg/dL (8.5-10.5); Carbon Dioxide 24 mmol/L (22-29); Chloride 99 mmol/L (98-107); Creatinine Clr Calc Pharmacy 19.1874; Globulin 3.4 g/dL (1.3-4.6); Glomerular Filtration Rate 11.1 mL/min (90-130); Glucose 107 mg/dL (65-115); Magnesium 2.5 mg/dL (1.7-2.3); Osmolality Calculated 307 mOsm/kg (285-295); Phosphorus 4.5 mg/dL (2.5-4.5); Potassium 4.3 mmol/L (3.5-5.1); Sodium 140 mmol/L (136-145); Total Bilirubin 0.3 mg/dL (0.15-1.2); Total Protein 6.9 g/dL (6.6-8.7)
[2023-09-12] MEDS: heparin 5,000 unit/mL INJ 1 mL 5000 UNIT SUBCUT ×2 (06:11→18:33)
[2023-09-12] MEDS: albuterol 2.5 mg/3 mL Neb INHALATION ×2 (07:47→14:32)
[2023-09-12] MEDS: doxycycline 100 MG in sodium chloride 0.9% (plus) 100 ML IV ×2 (08:02→20:14)
[2023-09-12] MEDS: meropenem 1,000 MG in sodium chloride 0.9% (plus) 50 ML 100 MG IV ×2 (09:33→22:30)
--- NOTE | 2023-09-12 09:58 | PC.NURSE ---
1:1 sitter order discontinued per Dr. Landon.
--- NOTE | 2023-09-12 10:25 | PC.SLP ---
Attempt SENIOR COMPENSATION ANALYST bedside swallow eval but unable to complete due to pt refusal of food trials. Nsg report pt still drowsy from Haldol given overnight. Will attempt again tomorrow.
[2023-09-12] MEDS: vancomycin 1,000 MG in sodium chloride 0.9% 250 ML 250 MG IV (10:27)
--- NOTE | 2023-09-12 10:30 | P.PN_ITS ---
Subjective 2 Subjective: on 2l Medications: Reviewed: Yes Vitals/I&O/Wt Last Vital Signs Temp 99.1 F 09/12/23 00:00 Pulse 106 H 09/12/23 08:00 Resp 25 H 09/12/23 08:00 BP 98/50 09/12/23 08:00 Pulse Ox 96 09/12/23 08:00 O2 Del Method BiPAP 09/12/23 08:00 O2 Flow Rate 2 09/12/23 04:00 FiO2 40 09/12/23 08:00 09/11/23 09/12/23 09/12/23 22:59 06:59 14:59 Intake Total 690 / 1870 84.184 / 1954.184 265.816 / 265.816 Output Total 0 / 2800 0 / 2800 Balance 690 / -930 84.184 / -845.816 265.816 / 265.816 Weight last 48 hrs Weight 141.521 kg Weight 140 kg Weight 140.67 kg Weight 142 kg Physical Exam 2 Narrative: awake , no distress S1S2 RRR per report Lungs clear per report no edema Data 09/12/23 03:33 09/12/23 04:19 Micro: Microbiology 09/09/23 14:19 Gram Stain - Final Cerebrospinal Fluid CSF Culture - Preliminary 09/06/23 09:18 Blood Culture - Final Blood NO GROWTH AFTER 5 DAYS 09/06/23 09:25 Blood Culture - Final Blood NO GROWTH AFTER 5 DAYS 09/06/23 08:20 Blood Culture - Final Blood NO GROWTH AFTER 5 DAYS 09/06/23 08:11 Blood Culture - Final Blood NO GROWTH AFTER 5 DAYS A&P Assessment and plan (1) ESRD (end stage renal disease): Plan 1. End-stage renal disease: On MW schedule as patient outpatient ,s/p HD yesterday 3. Acute on chronic respiratory failure: Secondary to sleep apnea COPD, now has pneumonia, on BIPAP 4. History of A-fib 5. aNEMIA : RENATE with HD 6. metabolic encephalopathy, 7. Hyperkalemia , low K diet , run 1K bath with hD 8 MBD : add renvela 9. Hypotension : improved ,s/p pressors, on midodrine - on steroids and IV albumin and Midodrine , weaning steroids Patient evaluated using audiovisual cart. Time spent 20 minutes. Attestations 2 Medical Necessity Statement*: per medicine Coding Level of Care Code Acute Code for Chg Fwd Diagnoses ESRD (end stage renal disease) N18.6
[2023-09-12] MEDS: amiodarone 200 mg Tablet 400 MG PO ×2 (10:59→18:33)
[2023-09-12] MEDS: aspirin 81 mg EC Tablet PO (11:00)
[2023-09-12] MEDS: fludrocortisone 0.1 mg Tablet 0.100000000000000006 MG PO (11:00)
[2023-09-12] MEDS: pantoprazole DR 40 mg Tablet PO ×2 (11:01→18:33)
[2023-09-12] MEDS: predniSONE 10 mg Tablet PO (11:01)
[2023-09-12] MEDS: sevelamer 800 mg Tablet PO ×2 (11:02→20:20)
[2023-09-12] MEDS: calcium acetate 667 mg Capsule 1334 MG PO ×2 (11:02→20:20)
[2023-09-12] MEDS: acyclovir 1,000 MG in sodium chloride 0.9% 250 ML 270 MG IV (11:03)
[2023-09-12] MEDS: amiodarone 150 MG/100 ML PREMIX 400 MG IV (16:02)
--- NOTE | 2023-09-12 16:21 | P.PN_ITS ---
Subjective 2 Subjective: - Patient was seen this morning, patient 's family members at bedside She is alert to person, to place, not to time, at times patient becomes agitated, tries to remove his IV, ? This morning he is much more calm, he can follow commands, ? Discussed with patient and family plan is for him to get up in a chair like yesterday, let speech therapy evaluate him, advance his diet as tolerated ? He continues to have intermittent A-fib, requiring amiodarone drip, chronically on 0.5, ? Will monitor him closely in ICU ? Patient developed A-fib with RVR, requiring 150 amiodarone bolus Vitals/I&O/Wt Last Vital Signs Temp 98.0 F 09/12/23 12:00 Pulse 123 H 09/12/23 14:35 Resp 15 09/12/23 14:33 BP 119/50 09/12/23 14:00 Pulse Ox 96 09/12/23 14:35 O2 Del Method BiPAP 09/12/23 14:33 O2 Flow Rate 2 09/12/23 14:00 FiO2 40 09/12/23 14:35 09/12/23 09/12/23 09/12/23 06:59 14:59 22:59 Intake Total 84.184 / 1954.184 899.160 / 899.160 Output Total 0 / 2800 Balance 84.184 / -845.816 899.160 / 899.160 Weight last 48 hrs Weight 141.521 kg Weight 140 kg Weight 140.67 kg Physical Exam 2 Const: COMMON NORMALS: no acute distress ORIENTATION/CONSCIOUSNESS: Yes awake, Yes oriented to person and Yes oriented to place; not oriented to time Neck/C-Spine: COMMON NORMALS: no JVD Resp: COMMON NORMALS: normal respiratory effort, No retractions, No use of accessory muscles and clear to auscultation bilaterally AUSCULTATION: clear to auscultation bilaterally Cardio: COMMON NORMALS: no JVD, regular rate, regular rhythm, S1 normal heart sound present and S2 normal heart sound present RATE: regular rate RHYTHM: regular rhythm HEART SOUNDS: S1 normal heart sound present and S2 normal heart sound present GI: COMMON NORMALS: Normal to inspection, nondistended, normoactive bowel sounds present and non-tender Extremity: COMMON NORMALS: no pedal edema Neuro: SENSORIUM/ORIENTATION: Yes oriented to person, Yes oriented to place and No oriented to time Data 09/12/23 03:33 09/12/23 04:19 Micro: Microbiology 09/09/23 14:19 Gram Stain - Final Cerebrospinal Fluid CSF Culture - Preliminary A&P Assessment and plan (1) Deep tissue injury: (2) Hypercapnic respiratory failure: Qualifiers: Chronicity: acute on chronic Qualified Code(s): J96.22 - Acute and chronic respiratory failure with hypercapnia (3) ESRD (end stage renal disease): (4) Hypertension: Qualifiers: Hypertension type: unspecified Qualified Code(s): I10 - Essential (primary) hypertension (5) Coronary artery disease: Qualifiers: Associated angina: without angina Coronary Disease-Associated Artery/Lesion type: unspecified vessel or lesion type [place] vs. transplanted heart: [place] heart Qualified Code(s): I25.10 - Atherosclerotic heart disease of [place] coronary artery without angina pectoris (6) Atrial fibrillation: Qualifiers: Atrial fibrillation type: unspecified Qualified Code(s): I48.91 - Unspecified atrial fibrillation (7) NATHALY (obstructive sleep apnea): (8) Fall: Qualifiers: Encounter type: subsequent encounter Qualified Code(s): W19.XXXD - Unspecified fall, subsequent encounter (9) Physical deconditioning: (10) Elevated WBC count: Qualifiers: Leukocytosis type: unspecified Qualified Code(s): D72.829 - Elevated white blood cell count, unspecified (11) Acute encephalopathy: (12) Septic shock: (13) Uremic encephalopathy: (14) Dysautonomia: (15) Post ICU syndrome: (16) Intensive care (ICU) myopathy: (17) Protein calorie malnutrition: Plan Septic shock, likely secondary to bilateral lower lobe pneumonia, resolved -WBC count trending downwards, CRP elevated, Pro-Nathan elevated, sed rate elevated ? Initially when patient was admitted there was concerns for pneumonia he was found to vancomycin meropenem, which was eventually discontinued as he completed 7 days however -CT CHEST ? CT/[place] [id number] IMPRESSION: 1. Bilateral lower lobe pneumonia, left worse than right. 2. There are emphysematous changes in the lungs. 3. Multivessel atherosclerotic disease which involves the coronary arteries. -Repeat CT scan abdomen pelvis and chest, and spine, done without contrast due to contrast allergy, no new acute findings -Does not urinate -He has dialysis port can be a source of infection, blood cultures from the port so far negative, this fairly unlikely -Repeat blood cultures, so far negative -repeat CAT scan of the spine, without contrast, No evidence of discitis, vertebral osteomyelitis, or epidural abscess ? Does have poor dentition but no evidence of dental abscess ? Certainly meningitis could be a source infection as he has waxing waning mentation, episodes of confusion afebrile, I doubt bacterial meningitis, as he has been on broad-spectrum antibiotic therapy but certainly lumbar puncture relatively lackluster, micafungin has been stopped continue IV antibiotics -CSF does show elevated proteins, low glucose, elevated WBC, possible viral meningitis ?added acyclovir for possible viral meningitis Over 48 hours ago with improvement of white blood cell count and mentation, following HSV studies -Follow CSF culture so far negative ? Patient's Fungitell was positive he has no immunocompromise state, however certainly fungal infection could be possibility, so for no significant events of fungal infection, stopped micafungin ? Tagged white blood cell scan ordered, no acute findings -Fungal studies ordered, CSF viral studies ordered ? Plan, ? Vancomycin -meropenem ? Micafungin stopped 09/10/2023 -Continue acyclovir -doxyycline -Midodrine -Albumin ? Status stable, prognosis guarded ? DNR/DNI ? Antiplatelet and anticoagulant therapy heparin Dysautonomia -Likely secondary to Parkinson's disease, likely etiology behind patient's episodes of hypotension with dialysis and during the day, as patient's lactic acid is within normal limits, no current evidence of septic shock, ? Continue midodrine Acute encephalopathy ? Alert to person, to place, not to time ? Does follow commands ? Likely some component initially secondary polypharmacy related to permitting, Lyrica which has been discontinued ? Continues to have intermittent episodes of encephalopathy concerns for septic shock, sepsis as an etiology as above, however resolving -Uremic encephalopathy playing a role, spoke to nephrology, will receive a session of dialysis tomorrow -Prolonged hospitalization, ICU syndrome Uremic encephalopathy, improving ? Likely sec to steroids, will wean steroids End-stage renal disease, on dialysis, requiring pressors with dialysis Diminished pulses likely secondary to sepsis septic shock, resolved CONCLUSIONS 1. Noncompressible ankle vessels bilaterally 2. Abnormal Doppler waveforms, may suggest collateral filling in the infrapopliteal was vessels, bilaterally. 3. Consider CTA to better evaluate peripheral arteries, if clinically indicated COPD exacerbation, resolved Acute hypercapnic respiratory failure, needs to use BiPAP scheduled during the night Hypertension Atrial fibrillation, currently back in A-fib with RVR, started on amiodarone drip with amiodarone bolus history of gi bleeds Morbid obesity Physical deconditioning, protein calorie malnutrition, PT OT, speech therapy eval, dietary eval -Plan for today continue acyclovir continue antibiotics, up out of bed, PT OT, heart rate controlled with amiodarone drip and amiodarone bolus, plan on dialysis tommrow, continue BiPAP Attestations 2 Medical Necessity Statement*: Patient requires hospitalization for encephalopathy, leukocytosis, A-fib with RVR, deconditioning, protein, nutrition, respiratory failure, pna, possible viral meningitis? Diagnoses Deep tissue injury T14.8XXA Acute on chronic respiratory failure with hypercapnia J96.22 Chronicity: acute on chronic ESRD (end stage renal disease) N18.6 Hypertension, unspecified type I10 Hypertension type: unspecified Coronary artery disease involving [place] heart without angina pectoris, unspecified vessel or lesion type I25.10 Associated angina: without angina Coronary Disease-Associated Artery/Lesion type: unspecified vessel or lesion type [place] vs. transplanted heart: [place] heart Atrial fibrillation, unspecified type I48.91 Atrial fibrillation type: unspecified NATHALY (obstructive sleep apnea) G47.33 Fall, subsequent encounter W19.XXXD Encounter type: subsequent encounter Physical deconditioning R53.81 Leukocytosis, unspecified type D72.829 Leukocytosis type: unspecified Acute encephalopathy G93.40 Septic shock A41.9; R65.21 Uremic encephalopathy G93.49; N19 Dysautonomia G90.1 Post ICU syndrome Intensive care (ICU) myopathy G72.81 Protein calorie malnutrition E46
[2023-09-12] MEDS: atorvastatin 40 mg Tablet PO (18:33)
[2023-09-12 22:19] LABS: HSV 1 DNA NOT DETECTED; HSV 2 DNA NOT DETECTED; HSV Source CEREBROSPINAL FLUID
[2023-09-13] VITALS (34 sets, daily range): BP systolic 89–168; BP diastolic 59–125; PULSE 103–150; RESP 13–47; TEMP 36.4–37.3; O2SAT 89–98
[2023-09-13] MEDS: haloperidol inj 5 mg/mL INJ 1 mL IVP (04:55)
--- NOTE | 2023-09-13 05:04 | PC.NURSE ---
Patient became extremely agitated upon waking - pulling off heart leads, yelling, attempting to pull out picc line. Unable to reason with patient - threatening to hit staff. Grabbed this nurses shirt, this nurse called for staff assist. MD called updated on patient condition. Patient verbally threatening to hit staff. bp wnl. Hr up to 122 Afib. o2 saturation 93 % on room air. Haldol iv given per md order. Patient now resting with occasional low [place] verbalizations.
[2023-09-13 05:12] LABS: Basophils % 0.1 %; Eosinophils # 0.1 10^3/uL (0.0-0.8); Eosinophils % 0.6 %; Hematocrit 37.6 % (37-53); Lymphocytes # 2.8 10^3/uL (0.8-4.8); Lymphocytes % 13.2 %; Mean Corpuscular HGB Conc 31.1 g/dL (30-55); Mean Corpuscular Hemoglobin 28.5 pg (27-33); Mean Corpuscular Volume 91.7 fl (82-101); Monocytes # 2.1 10^3/uL (0.2-0.9); Neutrophils # 15.74 10^3/uL (1.8-7.7); Neutrophils % 75.1 %; Nucleated Red Blood Cells % 0 %; Platelet Count 522 10^3/cmm (157-399); Red Cell Distribution Width 15.4 % (12.1-15.1); White Blood Count 20.95 10^3/uL (3.29-11.43)
[2023-09-13] MEDS: heparin 5,000 unit/mL INJ 1 mL 5000 UNIT SUBCUT ×2 (05:39→18:22)
[2023-09-13 06:42] LABS: Lactate (Lactic Acid level) 0.7 mmol/L (0.5-2.2)
[2023-09-13 06:47] LABS: Vancomycin Random 40.7 ug/mL (20.0-40.0)
[2023-09-13 06:54] LABS: NT Pro B Type Natriuretic Pept 2984 pg/mL (0-125); Procalcitonin 0.46 ng/mL (0-0.5)
[2023-09-13 07:06] LABS: Alanine Aminotransferase 11 U/L (0-41); Albumin Level 3.3 g/dL (3.5-5.2); Alkaline Phosphatase 119 U/L (40-130); Anion Gap 24.9 (5-19); Aspartate Amino Transferase 15 U/L (0-40); C Reactive Protein 41.1 mg/L (0.0-4.9); Carbon Dioxide 21 mmol/L (22-29); Chloride 97 mmol/L (98-107); Creatine Phosphokinase 43 U/L (39-308); Globulin 3.3 g/dL (1.3-4.6); Glomerular Filtration Rate 7.6 mL/min (90-130); Glucose 107 mg/dL (65-115); Magnesium 2.6 mg/dL (1.7-2.3); Osmolality Calculated 311 mOsm/kg (285-295); Phosphorus 5.5 mg/dL (2.5-4.5); Potassium 4.9 mmol/L (3.5-5.1); Sodium 138 mmol/L (136-145); Total Bilirubin 0.3 mg/dL (0.15-1.2); Total Protein 6.6 g/dL (6.6-8.7)
[2023-09-13 07:09] LABS: Blood Urea Nitrogen 81 mg/dL (8-23); Creatinine Clr Calc Pharmacy 13.8959
[2023-09-13] MEDS: doxycycline 100 MG in sodium chloride 0.9% (plus) 100 ML IV (08:11)
[2023-09-13] MEDS: fludrocortisone 0.1 mg Tablet 0.100000000000000006 MG PO (09:06)
[2023-09-13] MEDS: predniSONE 10 mg Tablet PO (09:06)
[2023-09-13] MEDS: pantoprazole DR 40 mg Tablet PO ×2 (09:06→18:21)
[2023-09-13] MEDS: aspirin 81 mg EC Tablet PO (09:06)
[2023-09-13] MEDS: amiodarone 200 mg Tablet 400 MG PO ×2 (09:06→18:21)
[2023-09-13] MEDS: meropenem 1,000 MG in sodium chloride 0.9% (plus) 50 ML 100 MG IV ×2 (09:18→22:06)
[2023-09-13] MEDS: albuterol 2.5 mg/3 mL Neb INHALATION (09:23)
--- NOTE | 2023-09-13 11:50 | PC.SOCIAL ---
IMM Update Pg. 2 of IMM updated and copy provided at bedside.
[2023-09-13] MEDS: midodrine 5 mg TABLET 10 MG PO ×2 (11:53→18:21)
[2023-09-13] MEDS: heparin, porcine 1,000 unit/mL INJ 10 mL 1000 UNIT IV (12:52)
--- NOTE | 2023-09-13 13:51 | P.PN_ITS ---
Subjective 2 Subjective: getting HD Medications: Reviewed: Yes Vitals/I&O/Wt Last Vital Signs Temp 97.9 F 09/13/23 13:06 Pulse 115 H 09/13/23 13:06 Resp 17 09/13/23 13:06 BP 92/76 09/13/23 13:06 Pulse Ox 92 09/13/23 11:00 O2 Del Method Nasal Cannula 09/13/23 09:23 O2 Flow Rate 2 09/13/23 09:23 FiO2 40 09/12/23 14:35 09/12/23 09/13/23 09/13/23 22:59 06:59 14:59 Intake Total 250 / 1149.160 150 / 1299.160 210 / 210 Output Total 0 / 0 0 / 0 Balance 250 / 1149.160 150 / 1299.160 210 / 210 Weight last 48 hrs Weight 140.7 kg Weight 141.521 kg Physical Exam 2 Narrative: awake , no distress S1S2 RRR per report Lungs clear per report no edema Data 09/13/23 05:00 09/13/23 06:04 Micro: Microbiology 09/09/23 14:19 Gram Stain - Final Cerebrospinal Fluid CSF Culture - Final A&P Assessment and plan (1) ESRD (end stage renal disease): Plan 1. End-stage renal disease: On MWF schedule as patient outpatient ,HD today 3. Acute on chronic respiratory failure: Secondary to sleep apnea COPD, now has pneumonia, on BIPAP 4. History of A-fib 5. aNEMIA : RENATE with HD 6. metabolic encephalopathy, 7. Hyperkalemia , low K diet 8 MBD : added renvela 9. Hypotension : improved ,s/p pressors, on midodrine - on steroids and IV albumin and Midodrine , weaning steroids Patient evaluated using audiovisual cart. Time spent 20 minutes. Attestations 2 Medical Necessity Statement*: per lauren Coding Level of Care Code Acute Code for Chg Fwd Diagnoses ESRD (end stage renal disease) N18.6
[2023-09-13] MEDS: dilTIAZem 30 mg Tablet PO ×2 (14:28→16:34)
[2023-09-13] MEDS: sevelamer 800 mg Tablet PO ×2 (14:28→20:03)
--- NOTE | 2023-09-13 15:07 | PC.NURSE ---
Cardiac monitoring: Strip completed during hemodialysis.
--- NOTE | 2023-09-13 15:07 | PC.NURSE ---
[facility]
--- NOTE | 2023-09-13 15:35 | PC.NURSE ---
Care assumed for this patient.
[2023-09-13 15:48] LABS: Lyme AB Screen <0.90 index
[2023-09-13] MEDS: epoetin alfa 1000 Unit/0.05 mL (ESRD) 20000 UNIT IVP (15:55)
[2023-09-13] MEDS: heparin, porcine 1,000 unit/mL INJ 10 mL 10000 UNIT INTRACATH (15:56)
--- NOTE | 2023-09-13 15:58 | PC.HD ---
HD circuit clotted with 20 minutes remaining of HD treatment. Per team guide, OK to terminate treatment early. Unable to rinse blood back to patient due to circuit clot. Epogen administered at conclusion of treatment.
--- NOTE | 2023-09-13 16:07 | PC.NURSE ---
Mandie Quiles notified via telephone/ voice mail of impending transfer to room 276-2
--- NOTE | 2023-09-13 16:09 | P.PN_ITS ---
Subjective 2 Subjective: Patient was seen this morning, continues to be in atrial fibrillation heart rates in low 100s on amiodarone drip 0.5, he is alert to person, to place, not to time he follows commands, no fevers overnight no chills, no cough, plan on dialysis today Vitals/I&O/Wt Last Vital Signs Temp 98.6 F 09/13/23 15:57 Pulse 129 H 09/13/23 16:00 Resp 27 H 09/13/23 16:00 BP 108/59 09/13/23 16:00 Pulse Ox 92 09/13/23 16:00 O2 Del Method Nasal Cannula 09/13/23 16:00 O2 Flow Rate 2 09/13/23 16:00 FiO2 40 09/12/23 14:35 09/13/23 09/13/23 09/13/23 06:59 14:59 22:59 Intake Total 150 / 1299.160 240 / 240 400 / 640 Output Total 0 / 0 2471 / 2471 Balance 150 / 1299.160 240 / 240 -2071 / -1831 Weight last 48 hrs Weight 138.5 kg Weight 140.7 kg Weight 141.521 kg Physical Exam 2 Const: COMMON NORMALS: no acute distress ORIENTATION/CONSCIOUSNESS: Yes awake, Yes oriented to person and Yes oriented to place; not oriented to time Resp: COMMON NORMALS: normal respiratory effort, No retractions, No use of accessory muscles and clear to auscultation bilaterally AUSCULTATION: clear to auscultation bilaterally Cardio: COMMON NORMALS: S1 normal heart sound present and S2 normal heart sound present RHYTHM: abnormal rhythm HEART SOUNDS: S1 normal heart sound present and S2 normal heart sound present GI: COMMON NORMALS: Normal to inspection, nondistended, normoactive bowel sounds present and non-tender Extremity: COMMON NORMALS: no pedal edema Neuro: SENSORIUM/ORIENTATION: Yes oriented to person, Yes oriented to place and No oriented to time Data 09/13/23 05:00 09/13/23 06:04 Micro: Microbiology 09/09/23 14:19 Gram Stain - Final Cerebrospinal Fluid CSF Culture - Final A&P Assessment and plan (1) Deep tissue injury: (2) Hypercapnic respiratory failure: Qualifiers: Chronicity: acute on chronic Qualified Code(s): J96.22 - Acute and chronic respiratory failure with hypercapnia (3) ESRD (end stage renal disease): (4) Hypertension: Qualifiers: Hypertension type: unspecified Qualified Code(s): I10 - Essential (primary) hypertension (5) Coronary artery disease: Qualifiers: Associated angina: without angina Coronary Disease-Associated Artery/Lesion type: unspecified vessel or lesion type [place] vs. transplanted heart: [place] heart Qualified Code(s): I25.10 - Atherosclerotic heart disease of [place] coronary artery without angina pectoris (6) Atrial fibrillation: Qualifiers: Atrial fibrillation type: unspecified Qualified Code(s): I48.91 - Unspecified atrial fibrillation (7) NATHALY (obstructive sleep apnea): (8) Fall: Qualifiers: Encounter type: subsequent encounter Qualified Code(s): W19.XXXD - Unspecified fall, subsequent encounter (9) Physical deconditioning: (10) Elevated WBC count: Qualifiers: Leukocytosis type: unspecified Qualified Code(s): D72.829 - Elevated white blood cell count, unspecified (11) Acute encephalopathy: (12) Septic shock: (13) Uremic encephalopathy: (14) Dysautonomia: (15) Post ICU syndrome: (16) Intensive care (ICU) myopathy: (17) Protein calorie malnutrition: Plan Septic shock, likely secondary to bilateral lower lobe pneumonia, resolved -WBC count trending downwards, Pro-Nathan, CRP trending downwards ? Initially when patient was admitted there was concerns for pneumonia he was found to vancomycin meropenem, which was eventually discontinued as he completed 7 days however -CT CHEST ? CT/[place] [id number] IMPRESSION: 1. Bilateral lower lobe pneumonia, left worse than right. 2. There are emphysematous changes in the lungs. 3. Multivessel atherosclerotic disease which involves the coronary arteries. -Repeat CT scan abdomen pelvis and chest, and spine, done without contrast due to contrast allergy, no new acute findings -Does not urinate -He has dialysis port can be a source of infection, blood cultures from the port so far negative, this fairly unlikely -Repeat blood cultures, so far negative -repeat CAT scan of the spine, without contrast, No evidence of discitis, vertebral osteomyelitis, or epidural abscess ? Does have poor dentition but no evidence of dental abscess ? Certainly meningitis could be a source infection as he has waxing waning mentation, episodes of confusion afebrile, I doubt bacterial meningitis, as he has been on broad-spectrum antibiotic therapy but certainly lumbar puncture relatively lackluster, micafungin has been stopped continue IV antibiotics -CSF does show elevated proteins, low glucose, elevated WBC, possible viral meningitis ?added acyclovir for possible viral meningitis, CSF studies negative for HSV -Follow CSF culture so far negative ? Patient's Fungitell was positive he has no immunocompromise state, however certainly fungal infection could be possibility, so for no significant events of fungal infection, stopped micafungin ? Tagged white blood cell scan ordered, no acute findings -Fungal studies ordered, CSF viral studies ordered ? Plan, ? stop Vancomycin -meropenem ? Micafungin stopped 09/10/2023 -stop acyclovir -stop doxyycline -Midodrine -Albumin ? Status stable, prognosis guarded ? DNR/DNI ? Antiplatelet and anticoagulant therapy heparin Dysautonomia -Likely secondary to Parkinson's disease, likely etiology behind patient's episodes of hypotension with dialysis and during the day, as patient's lactic acid is within normal limits, no current evidence of septic shock, ? Continue midodrine Acute encephalopathy, resolving ? Alert to person, to place, not to time ? Does follow commands ? Likely some component initially secondary polypharmacy related to permitting, Lyrica which has been discontinued ? Continues to have intermittent episodes of encephalopathy, start zyprexa tonight -Uremic encephalopathy playing a role, improving -Prolonged hospitalization, ICU syndrome Uremic encephalopathy, improving ? Likely sec to steroids, will wean steroids End-stage renal disease, on dialysis, Diminished pulses likely secondary to sepsis septic shock, resolved CONCLUSIONS 1. Noncompressible ankle vessels bilaterally 2. Abnormal Doppler waveforms, may suggest collateral filling in the infrapopliteal was vessels, bilaterally. 3. Consider CTA to better evaluate peripheral arteries, if clinically indicated COPD exacerbation, resolved Acute hypercapnic respiratory failure, needs to use BiPAP scheduled during the night Hypertension Atrial fibrillation, currently back in A-fib with RVR, requiring titration of medications on amiodarone drip Morbid obesity Physical deconditioning, protein calorie malnutrition, PT OT, speech therapy eval, dietary eval -Plan for today continues to have issues with A-fib with RVR despite being on amiodarone, will increase Cardizem dose to 60 every 6h, monitor in ICU, will receive dialysis today following culture results, stop vancomycin stop doxycycline stopped acyclovir continue meropenem for concerns for pneumonia, PT OT, speech therapy eval monitor mentation Attestations 2 Medical Necessity Statement*: Patient requires hospitalization for acute encephalopathy, now with A-fib with RVR, requiring amiodarone drip, titration of p.o. medications, fluid overload received dialysis today Diagnoses Deep tissue injury T14.8XXA Acute on chronic respiratory failure with hypercapnia J96.22 Chronicity: acute on chronic ESRD (end stage renal disease) N18.6 Hypertension, unspecified type I10 Hypertension type: unspecified Coronary artery disease involving [place] heart without angina pectoris, unspecified vessel or lesion type I25.10 Associated angina: without angina Coronary Disease-Associated Artery/Lesion type: unspecified vessel or lesion type [place] vs. transplanted heart: [place] heart Atrial fibrillation, unspecified type I48.91 Atrial fibrillation type: unspecified NATHALY (obstructive sleep apnea) G47.33 Fall, subsequent encounter W19.XXXD Encounter type: subsequent encounter Physical deconditioning R53.81 Leukocytosis, unspecified type D72.829 Leukocytosis type: unspecified Acute encephalopathy G93.40 Septic shock A41.9; R65.21 Uremic encephalopathy G93.49; N19 Dysautonomia G90.1 Post ICU syndrome Intensive care (ICU) myopathy G72.81 Protein calorie malnutrition E46
--- NOTE | 2023-09-13 17:17 | PC.NURSE ---
Mandie Quiles called and notified of transfer cancelled and staying in ICU 11 due to heart rate in 130's after dialysis for continued closer monitoring and Cardizem PO dose increased.
[2023-09-13] MEDS: atorvastatin 40 mg Tablet PO (18:22)
--- NOTE | 2023-09-13 19:34 | PC.NURSE ---
Pt 's heart rate elevated to 130's during dialysis. Cardizem increased to 60mg Po, extra 30mg admin around 1630. Pt remained drowsy after dialysis but he would follow brief easy commands this afternoon. His speech is unintelligible. He was able to swallow his afternoon meds.
[2023-09-13] MEDS: calcium acetate 667 mg Capsule 1334 MG PO (20:00)
[2023-09-14] VITALS (30 sets, daily range): BP systolic 73–154; BP diastolic 35–112; PULSE 97–148; RESP 17–31; TEMP 36.1–37.2; O2SAT 84–96
[2023-09-14] MEDS: midodrine 5 mg TABLET 10 MG PO ×3 (00:40→11:43)
[2023-09-14 03:04] LABS: JC Virus DNA Ultra QN PCR NOT DETECTED Log IU/mL; JC Virus Quant CSF PCR NOT DETECTED
[2023-09-14] MEDS: fluoxetine 20 mg Capsule 60 MG PO (05:42)
[2023-09-14] MEDS: heparin 5,000 unit/mL INJ 1 mL 5000 UNIT SUBCUT ×2 (05:43→17:35)
[2023-09-14 06:13] LABS: Basophils # 0.1 10^3/uL (0.0-0.1); Basophils % 0.2 %; Hematocrit 39.6 % (37-53); Lymphocytes # 2.1 10^3/uL (0.8-4.8); Lymphocytes % 6.5 %; Mean Corpuscular HGB Conc 31.6 g/dL (30-55); Mean Corpuscular Volume 91.9 fl (82-101); Mean Platelet Volume 11.4 fL (7.4-10.4); Monocytes # 2.8 10^3/uL (0.2-0.9); Monocytes % 8.7 %; Neutrophils # 27.05 10^3/uL (1.8-7.7); Neutrophils % 83.4 %; Nucleated Red Blood Cells % 0 %; Platelet Count 571 10^3/cmm (157-399); Red Blood Count 4.31 10^6/uL (3.85-5.65); Red Cell Distribution Width 15.2 % (12.1-15.1)
[2023-09-14 06:17] LABS: White Blood Count 32.46 10^3/uL (3.29-11.43)
[2023-09-14 06:31] LABS: Alanine Aminotransferase 8 U/L (0-41); Albumin Level 3.6 g/dL (3.5-5.2); Alkaline Phosphatase 135 U/L (40-130); Anion Gap 28.6 (5-19); Aspartate Amino Transferase 21 U/L (0-40); Blood Urea Nitrogen 68 mg/dL (8-23); C Reactive Protein 135.7 mg/L (0.0-4.9); Calcium 9.5 mg/dL (8.5-10.5); Carbon Dioxide 22 mmol/L (22-29); Chloride 96 mmol/L (98-107); Globulin 3.7 g/dL (1.3-4.6); Glomerular Filtration Rate 8.7 mL/min (90-130); Glucose 137 mg/dL (65-115); Magnesium 2.7 mg/dL (1.7-2.3); Osmolality Calculated 314 mOsm/kg (285-295); Potassium 5.6 mmol/L (3.5-5.1); Sodium 141 mmol/L (136-145); Total Bilirubin 0.5 mg/dL (0.15-1.2); Total Protein 7.3 g/dL (6.6-8.7)
[2023-09-14 06:33] LABS: Lactate (Lactic Acid level) 3.1 mmol/L (0.5-2.2)
[2023-09-14 06:34] LABS: Creatinine Clr Calc Pharmacy 15.7131
[2023-09-14 06:43] LABS: NT Pro B Type Natriuretic Pept 2954 pg/mL (0-125); Procalcitonin 0.75 ng/mL (0-0.5)
[2023-09-14 06:54] LABS: Creatine Phosphokinase 40 U/L (39-308)
--- NOTE | 2023-09-14 08:37 | XR_ITS ---
WS: [id number] Exam: XR chest 1V portable [id number] Date/Time of Exam: 09/14/2023 8:42 AM Reason For Exam: follow up Comparison 09/08/2023. The lungs are clear and fully expanded. Mild cardiac enlargement unchanged. No pleural effusions. The mediastinum is normal in contour. A right-sided IJ double-lumen catheter ends in the lower SVC. Ther e is also a left-sided PICC line that ends in the lower one third of the SVC also. Bony structures ar e intact. IMPRESSION: 1. Mild cardiac enlargement unchanged. No acute cardiopulmonary finding. 2. PICC line and RIGHT IJ central line both ending in the lower one third of the SVC.
[2023-09-14] MEDS: sevelamer 800 mg Tablet PO (08:44)
[2023-09-14] MEDS: aspirin 81 mg EC Tablet PO (08:44)
[2023-09-14] MEDS: amiodarone 200 mg Tablet 400 MG PO (08:44)
[2023-09-14] MEDS: pantoprazole DR 40 mg Tablet PO (08:44)
[2023-09-14] MEDS: dilTIAZem 60 mg Tablet PO (08:44)
[2023-09-14] MEDS: fludrocortisone 0.1 mg Tablet 0.100000000000000006 MG PO (08:44)
[2023-09-14] MEDS: predniSONE 10 mg Tablet PO (08:44)
[2023-09-14] MEDS: linezolid premix 600 MG/300 ML PREMIX 300 MG IV (08:45)
[2023-09-14] MEDS: calcium acetate 667 mg Capsule 1334 MG PO (08:45)
[2023-09-14] MEDS: meropenem 1,000 MG in sodium chloride 0.9% (plus) 50 ML 100 MG IV ×2 (10:23→21:47)
--- NOTE | 2023-09-14 10:29 | PC.NURSE ---
pt here assisted up to chair at this time by sliding pt to chair po meds given somewhat lethargic but awakens easily
[2023-09-14] MEDS: dilTIAZem 100 MG in sodium chloride 0.9% (add-van) 100 ML IV (11:41)
[2023-09-14] MEDS: sodium polystyrene sulfonate 15 gm/60 mL Btl 30 GM PO (11:43)
--- NOTE | 2023-09-14 12:01 | PC.NURSE ---
very lethargic will awake to take small sips of water with pill ,, not able to take kayexelate po doctor here aware at this time ,, placed back on bipap heart rate remains 130s placed on cardizem gtt
--- NOTE | 2023-09-14 12:03 | CT_ITS ---
WS: [id number] CT HEAD TECHNIQUE: Noncontrast CT of the head obtained from the skullbase to the vertex. CLINICAL INFORMATION: ams COMPARISON: 08/25/2023 DLP: 2467.[address] scans at [facility] use at least one of these dose optimization techniques: automated e xposure control; mA and/or kV adjustment per patient size (includes targeted exams where dose is matc hed to clinical indication); or iterative reconstruction. FINDINGS: No evidence of intracranial hemorrhage or mass effect. Ventricular system and basal cisterns are mora nt. Mild small vessel changes with mild parenchymal volume loss. No extra-axial fluid collections. No evidence of mass or mass effect. Few tiny chronic lacunar infarcts RIGHT lateral basal ganglia appea r unchanged. Vascular calcification. Air-fluid levels in the RIGHT greater than LEFT maxillary sinuses. Mastoid air cells are well aerated . Stable LEFT parotid nodules or intraparotid lymph nodes. IMPRESSION: 1. No evidence of intracranial hemorrhage or mass effect. 2. RIGHT maxillary sinusitis with air-fluid level. Trace fluid LEFT maxillary sinus. 3. No acute intracranial findings.
[2023-09-14 12:43] LABS: Blood Gas Sample Site Brachial, right; Oxygen Device BIPAP; PO2 FiO2 Ratio Arterial Blood 0
[2023-09-14 12:44] LABS: ABG PH Result 7.44 (7.35-7.45)
[2023-09-14 12:45] LABS: ABG PCO2 32.5 mmHg (35-45); Arterial Blood Gas Hematocrit 40.6 % (42-52); Base Excess ABG -1.3 mmol/L (-2.0-2.0); Blood Gas Allen Test N; Blood Gas Operator Identificat MONRO; HCO3 ABG 22.1 mmol/L (22-26); PO2 ABG 49.8 mmHg (80.0-100.0)
[2023-09-14 13:01] LABS: Blood Gas Sample Type Arterial
--- NOTE | 2023-09-14 14:40 | PM.PN ---
Subjective Subjective: no new complaints Medications: Reviewed: Yes Vitals/I&O/Wt Last Vital Signs Temp 98.8 F 09/14/23 12:00 Pulse 125 H 09/14/23 14:00 Resp 20 H 09/14/23 14:00 BP 111/49 09/14/23 14:00 Pulse Ox 91 09/14/23 14:00 O2 Del Method Nasal Cannula 09/14/23 07:48 O2 Flow Rate 2.5 09/14/23 07:48 FiO2 40 09/14/23 13:33 09/13/23 09/14/23 09/14/23 22:59 06:59 14:59 Intake Total 530 / 770 290 / 1060 590 / 590 Output Total 2471 / 2471 0 / 2471 0 / 0 Balance -1941 / -1701 290 / -1411 590 / 590 Weight last 48 hrs Weight 142 kg Weight 138.5 kg Weight 140.7 kg Physical Exam Narrative: awake , no distress S1S2 RRR per report Lungs clear per report no edema Data 09/14/23 05:49 09/14/23 05:49 Micro: Microbiology 09/09/23 14:19 Gram Stain - Final Cerebrospinal Fluid CSF Culture - Final A&P Assessment and plan (1) ESRD (end stage renal disease): Plan 1. End-stage renal disease: On MWF schedule as patient outpatient ,HD tomorrow 3. Acute on chronic respiratory failure: Secondary to sleep apnea COPD, now has pneumonia, on BIPAP 4. History of A-fib 5. aNEMIA : RENATE with HD 6. metabolic encephalopathy, 7. Hyperkalemia , low K diet ,repeat bmp 8 MBD : added renvela 9. Hypotension : improved ,s/p pressors, on midodrine - on steroids and IV albumin and Midodrine , weaning steroids Patient evaluated using audiovisual cart. Time spent 20 minutes. Attestations Medical Necessity Statement*: per [facility] Coding Level of Care Code Acute Code for Chg Fwd Diagnoses ESRD (end stage renal disease) N18.6
[2023-09-14] MEDS: levETIRAcetam 1,000 MG/100 ML PREMIX 400 MG IV (14:49)
--- NOTE | 2023-09-14 14:55 | PC.NURSE ---
unable to awaken to swallow po meds,, doctor aware . mother at bedside pt refuses to awaken at present
--- NOTE | 2023-09-14 15:09 | PM.ACPR ---
Documented by User: Vilma [email or web address] 09/14/23 16:34 EEG Routine Details of Procedure [place] [id number]- coma or sleep only: [id number] Documented by User: See Pineda MD 09/16/23 09:59 EEG Routine Details of Procedure Details/Comments: EEG TEMPLATE: This is a 19 channel routine video surface EEG recording utilizing the [employer] software with surface and EKG electrodes. The procedure was performed utilizing the international 10-20 system. Patient name: Jose E Quiles Date of : 1955 Patient age [age] years old Identification number:[id number] Referring Physician: See Pineda MD EEG#: EEG Start time: 15:53:35 EEG End time: 16:21:27 Duration of study: 26 minutes Date of study: 09/14/2023 Reason for study: Coma/obtunded. EEG study performed to assess for subclinical status epilepticus and to assist in determining if anticonvulsant medications are required for seizures Skull defects: None Condition of recording: The patient was reported to be Semi-Comatosed/obtunded Cooperation: Fair Activation procedures: None Medications: Amiodarone, Lyrica, Sinemet, albuterol sulfate, Prozac, melatonin, Ativan, primidone, diltiazem Background activity: Background activity throughout the recording revealed 5 to 6 Hz generalized theta slowing associated with intermittent 2-1/2 Hz low to moderate voltage delta slowing. Intermittent low voltage beta activity was seen centrally and anteriorly. Intermittently during the recording the record was partially obscured by muscle and motion artifact. Interictal activity: None Ictal activity: None Impression: This is an abnormal 26-minute surface EEG recording secondary to generalized 5 to 6 Hz theta slowing associated with generalized 2-1/2 Hz delta activity seen throughout the recording. Clinical correlation: The generalized slowing of the background rhythm is consistent with a diffuse encephalopathic process, of unclear etiology but suggestive of a metabolic encephalopathy. Note: No seizure activity was seen. Physician name/Signature: See Pineda MD asparagus buncher/Signature: Vilma BUSTILLO T.
--- NOTE | 2023-09-14 15:11 | P.PN_ITS ---
Subjective 2 Subjective: - Patient was examined multiple times th roughout the morning into the afternoon ? Patient had episodes of confusion during the night, this morning he is alert to person, not to place, not to time he can follow commands he is able to squeeze my fingers he is able to smile for me ? Remains in A-fib, heart rates into the 130s, received Cardizem 60 every 6, will place him on a Cardizem drip ? Reexamined on a Cardizem drip, heart rates in the 120s ? Later in the afternoon, patient became more confused, sitting up in a chair, less responsive, remaining days, has spontaneous movement of upper and lower extremities, no facial droop no slurring of his words, CT of the head was ordered, within normal limits, ? Placed on BiPAP ABG does not show any significant hypercarbia ? Possible concern for stroke? Will give him a dose of 1 g of Keppra ? Spoke to Dr. Pineda from neurology, given patient's complicated case persistent encephalopathy white count up to 32,000, consult for persistent encephalopathy recommended placing back on Lyrica 100 twice daily for concerns for Lyrica withdrawal, also placed back on Sinemet 1 tab 3 times daily ? Will continue to monitor closely in the ICU monitor heart rates monitor mentation Vitals/I&O/Wt Last Vital Signs Temp 98.8 F 09/14/23 12:00 Pulse 125 H 09/14/23 14:00 Resp 20 H 09/14/23 14:00 BP 111/49 09/14/23 14:00 Pulse Ox 91 09/14/23 14:00 O2 Del Method Nasal Cannula 09/14/23 07:48 O2 Flow Rate 2.5 09/14/23 07:48 FiO2 40 09/14/23 13:33 09/14/23 09/14/23 09/14/23 06:59 14:59 22:59 Intake Total 290 / 1060 590 / 590 Output Total 0 / 2471 0 / 0 Balance 290 / -1411 590 / 590 Weight last 48 hrs Weight 142 kg Weight 138.5 kg Weight 140.7 kg Physical Exam 2 Const: COMMON NORMALS: no acute distress Neck/C-Spine: COMMON NORMALS: no JVD Resp: COMMON NORMALS: normal respiratory effort, No retractions, No use of accessory muscles and clear to auscultation bilaterally AUSCULTATION: clear to auscultation bilaterally Cardio: COMMON NORMALS: no JVD, regular rate, regular rhythm, S1 normal heart sound present and S2 normal heart sound present RATE: regular rate RHYTHM: regular rhythm HEART SOUNDS: S1 normal heart sound present and S2 normal heart sound present GI: COMMON NORMALS: Normal to inspection, nondistended, normoactive bowel sounds present and non-tender Extremity: COMMON NORMALS: no pedal edema Neuro: OTHER: Patient is globally encephalopathic, can follow commands such as squeezing my fingers, wiggling his toes able to smile for me but cannot follow any other complex commands, when asked him how he is doing he does not really provide an answer, I cannot discern any facial droop, he does moan and groan at times, but does not follow commands in the afternoon, Data 09/14/23 05:49 09/14/23 05:49 Micro: Microbiology 09/09/23 14:19 Gram Stain - Final Cerebrospinal Fluid CSF Culture - Final A&P Assessment and plan (1) Deep tissue injury: (2) Hypercapnic respiratory failure: Qualifiers: Chronicity: acute on chronic Qualified Code(s): J96.22 - Acute and chronic respiratory failure with hypercapnia (3) ESRD (end stage renal disease): (4) Hypertension: Qualifiers: Hypertension type: unspecified Qualified Code(s): I10 - Essential (primary) hypertension (5) Coronary artery disease: Qualifiers: Associated angina: without angina Coronary Disease-Associated Artery/Lesion type: unspecified vessel or lesion type [place] vs. transplanted heart: [place] heart Qualified Code(s): I25.10 - Atherosclerotic heart disease of [place] coronary artery without angina pectoris (6) Atrial fibrillation: Qualifiers: Atrial fibrillation type: unspecified Qualified Code(s): I48.91 - Unspecified atrial fibrillation (7) NATHALY (obstructive sleep apnea): (8) Fall: Qualifiers: Encounter type: subsequent encounter Qualified Code(s): W19.XXXD - Unspecified fall, subsequent encounter (9) Physical deconditioning: (10) Elevated WBC count: Qualifiers: Leukocytosis type: unspecified Qualified Code(s): D72.829 - Elevated white blood cell count, unspecified (11) Acute encephalopathy: (12) Septic shock: (13) Uremic encephalopathy: (14) Dysautonomia: (15) Post ICU syndrome: (16) Intensive care (ICU) myopathy: (17) Protein calorie malnutrition: Plan Septic shock, likely secondary to bilateral lower lobe pneumonia, resolved -WBC count trending downwards, Pro-Nathan, CRP trending downwards ? Initially when patient was admitted there was concerns for pneumonia he was found to vancomycin meropenem, which was eventually discontinued as he completed 7 days however -CT CHEST ? CT/[place] [id number] IMPRESSION: 1. Bilateral lower lobe pneumonia, left worse than right. 2. There are emphysematous changes in the lungs. 3. Multivessel atherosclerotic disease which involves the coronary arteries. -Repeat CT scan abdomen pelvis and chest, and spine, done without contrast due to contrast allergy, no new acute findings -Does not urinate -He has dialysis port can be a source of infection, blood cultures from the port so far negative, this fairly unlikely -Repeat blood cultures, so far negative -repeat CAT scan of the spine, without contrast, No evidence of discitis, vertebral osteomyelitis, or epidural abscess ? Does have poor dentition but no evidence of dental abscess ? Certainly meningitis could be a source infection as he has waxing waning mentation, episodes of confusion afebrile, I doubt bacterial meningitis, as he has been on broad-spectrum antibiotic therapy but certainly lumbar puncture relatively lackluster, micafungin has been stopped continue IV antibiotics -CSF does show elevated proteins, low glucose, elevated WBC, possible viral meningitis ?added acyclovir for possible viral meningitis, CSF studies negative for HSV -Follow CSF culture so far negative ? Patient's Fungitell was positive he has no immunocompromise state, however certainly fungal infection could be possibility, so for no significant events of fungal infection, stopped micafungin ? Tagged white blood cell scan ordered, no acute findings -Fungal studies ordered, CSF viral studies ordered ? Plan, ? stop Vancomycin -meropenem ? Micafungin stopped 09/10/2023 -stop acyclovir -stop doxyycline -Midodrine -Albumin ? Status stable, prognosis guarded ? DNR/DNI ? Antiplatelet and anticoagulant therapy heparin Dysautonomia -Likely secondary to Parkinson's disease, likely etiology behind patient's episodes of hypotension with dialysis and during the day, as patient's lactic acid is within normal limits, no current evidence of septic shock, ? Continue midodrine Acute encephalopathy, resolving ? Alert to person, to place, not to time ? Does follow commands ? Likely some component initially secondary polypharmacy related to permitting, Lyrica which has been discontinued ? Continues to have intermittent episodes of encephalopathy, start zyprexa tonight -Uremic encephalopathy playing a role, improving -Prolonged hospitalization, ICU syndrome Uremic encephalopathy, improving ? Likely sec to steroids, will wean steroids End-stage renal disease, on dialysis, Diminished pulses likely secondary to sepsis septic shock, resolved CONCLUSIONS 1. Noncompressible ankle vessels bilaterally 2. Abnormal Doppler waveforms, may suggest collateral filling in the infrapopliteal was vessels, bilaterally. 3. Consider CTA to better evaluate peripheral arteries, if clinically indicated COPD exacerbation, resolved Acute hypercapnic respiratory failure, needs to use BiPAP scheduled during the night Hypertension Atrial fibrillation, currently back in A-fib with RVR, requiring titration of medications on amiodarone drip Morbid obesity Physical deconditioning, protein calorie malnutrition, PT OT, speech therapy eval, dietary eval - Patient was examined multiple times throughout the morning into the afternoon ? Patient had episodes of confusion during the night, this morning he is alert to person, not to place, not to time he can follow commands he is able to squeeze my fingers he is able to smile for me ? Remains in A-fib, heart rates into the 130s, received Cardizem 60 every 6, will place him on a Cardizem drip ? Reexamined on a Cardizem drip, heart rates in the 120s ? Later in the afternoon, patient became more confused, sitting up in a chair, less responsive, remaining days, has spontaneous movement of upper and lower extremities, no facial droop no slurring of his words, CT of the head was ordered, within normal limits, ? Placed on BiPAP ABG does not show any significant hypercarbia ? Nonetheless placed back on BiPAP, monitored throughout the afternoon ? Possible concern for stroke? Will give him a dose of 1 g of Keppra ? Spoke to Dr. Pineda from neurology, given patient's complicated case persistent encephalopathy white count up to 32,000, consult for persistent encephalopathy recommended placing back on Lyrica 100 twice daily for concerns for Lyrica withdrawal, also placed back on Sinemet 1 tab 3 times daily ? Will continue to monitor closely in the ICU monitor heart rates monitor mentation -Blood blood cell count up to 32,000 afebrile, CRP elevated Pro-Nathan elevated, repeat blood cultures so far remain unremarkable ? EEG ordered ? Will speak to Dr. Verma about leukocytosis, has parotid gland tumor potentially playing a role?, Although peripheral smear studies do not show any significant evidence of lymphoma leukemia Attestations 2 Medical Necessity Statement*: Patient requires hospitalization for persistent encephalopathy, leukocytosis, Diagnoses Deep tissue injury T14.8XXA Acute on chronic respiratory failure with hypercapnia J96.22 Chronicity: acute on chronic ESRD (end stage renal disease) N18.6 Hypertension, unspecified type I10 Hypertension type: unspecified Coronary artery disease involving [place] heart without angina pectoris, unspecified vessel or lesion type I25.10 Associated angina: without angina Coronary Disease-Associated Artery/Lesion type: unspecified vessel or lesion type [place] vs. transplanted heart: [place] heart Atrial fibrillation, unspecified type I48.91 Atrial fibrillation type: unspecified NATHALY (obstructive sleep apnea) G47.33 Fall, subsequent encounter W19.XXXD Encounter type: subsequent encounter Physical deconditioning R53.81 Leukocytosis, unspecified type D72.829 Leukocytosis type: unspecified Acute encephalopathy G93.40 Septic shock A41.9; R65.21 Uremic encephalopathy G93.49; N19 Dysautonomia G90.1 Post ICU syndrome Intensive care (ICU) myopathy G72.81 Protein calorie malnutrition E46
--- NOTE | 2023-09-14 15:22 | PC.NURSE ---
remains lethargic at this time ...attempt to take po meds unable to at this time
[2023-09-14 17:03] LABS: Anion Gap 25.9 (5-19); Blood Urea Nitrogen 77 mg/dL (8-23); Calcium 9.5 mg/dL (8.5-10.5); Carbon Dioxide 20 mmol/L (22-29); Chloride 98 mmol/L (98-107); Creatinine Clr Calc Pharmacy 13.9672; Glomerular Filtration Rate 7.6 mL/min (90-130); Glucose 143 mg/dL (65-115); Osmolality Calculated 313 mOsm/kg (285-295); Potassium 4.9 mmol/L (3.5-5.1); Sodium 139 mmol/L (136-145)
[2023-09-14 17:30] LABS: Immunoglobulin G, CSF 8.1 mg/dL (0.8-7.7)
--- NOTE | 2023-09-14 17:32 | P.CONIM_ITS ---
Providers/Reason For Consult 2 Consulting Physician/Specialty*: See Pineda MD neurology and epilepsy Reason for Consult*: Metabolic encephalopathy Attending Physician: Moisés Landon MD Primary Care Provider: Lovely Ivey MD History of Present Illness History of Present Illness Artie Quiles is a 68 year old male with a history of atrial fibrillation, end-stage renal disease on hemodialysis, respiratory failure, tremors addressed by Dr. Saldana, and macular degeneration. The patient was reported to be started on Sinemet for tremors. But, patient was reported to experience worsening of tremors associated with confusion. As a result the Sinemet and Lyrica were discontinued but patient has remained confused as well as experiencing decreased level consciousness, and elevated white count. Patient underwent sepsis workup including lumbar puncture, blood cultures, culturing of the hemodialysis catheter tip and started on broad-spectrum IV antibiotics. Blood cultures and CSF reported to be negative for growth. Initially the patient was reported to have some improvement in his mentation with improvement in his white count but since that time the patient's white count has again been reported to increase and patient's mental status has declined to patient being obtunded/comatose. As a result a neurological consult was obtained. Surface EEG was ordered and performed on 09/14/2023 and revealed generalized slowing of the background rhythm consistent with a diffuse encephalopathic process. No seizure activity was seen. Drug allergies: Iodinated contrast media which resulted in anaphylaxis Current medications: Amiodarone 200 mg p.o. daily Vitamin C 1000 mg p.o. daily Albuterol sulfate 90 mcg per accusation 4 times a day as needed Aspirin 81 mg p.o. daily Lipitor 80 mg p.o. nightly Carbamide peroxide 4 drops in the ear for earwax Diltiazem 240 mg p.o. daily Benadryl/acetaminophen PM 2 p.o. nightly Colace 100 mg p.o. twice daily Prozac 60 mg p.o. daily Flonase 1 spray intranasally daily Lasix 40 mg p.o. twice daily Guaifenesin 400 mg p.o. every 4 hours as needed for congestion Lisinopril 10 mg p.o. daily Claritin 10 mg p.o. daily Ativan 0.5 mg p.o. as directed Melatonin 10 mg p.o. nightly Naloxone 4 mg intranasally every 3 minutes as needed for opioid overdose Sublingual nitroglycerin 0.4 mg every 5 minutes as needed for chest pain Nystatin 10 mg p.o. 3 times daily as needed Omeprazole 40 mg p.o. daily Oxycodone 10 mg p.o. every 6 hours as needed for pain Lyrica 150 mg p.o. twice daily PreserVision 1 capsule p.o. twice daily Primidone 50 mg p.o. twice daily Leigh Ann-Kerrie 1 p.o. daily Ropinirole 1 mg p.o. nightly Tamsulosin 0.8 mg p.o. daily Zinc 50 mg p.o. daily Tiotropium bromide 18 mcg capsules 1 capsule inhalation daily Sinemet 25/100 mg p.o. 3 times daily Past medical history: End-stage renal disease on hemodialysis Atrial fibrillation Coronary artery disease Parkinsonian tremors Intensive care myopathy Dysautonomia Uremic encephalopathy Elevated white count Hypercapnia respiratory failure Type 2 diabetes mellitus Hyperkalemia Hyperlipidemia Hypertension Legally blind Non-ST segment elevation myocardial infarction Obstructive sleep apnea Colon polyps Pneumonia Weakness Morbid obesity Habits: Unknown Family history: Unknown Review of Systems 2 General: Reports: ROS unobtainable due to medical condition Medications/Allergies Home Medications Medication Instructions Recorded Confirmed Last Taken Type aspirin 81 mg tablet,delayed 81 mg PO DAILY 11/27/20 08/25/23 08/25/23 History release (Adult Low Dose Aspirin) atorvastatin 80 mg tablet 40 mg PO QPM 11/27/20 08/25/23 08/24/23 History docusate sodium 100 mg capsule 100 mg PO BID PRN Constipation 11/27/20 08/25/23 Unknown History nitroglycerin 0.4 mg sublingual 0.4 mg sublingual Q5M PRN Chest 11/27/20 08/25/23 Unknown History tablet Pain polyethylene glycol 3350 17 17 g PO DAILY PRN Constipation 11/27/20 08/25/23 Unknown History gram/dose oral powder pregabalin 150 mg capsule 150 mg PO BID 11/27/20 08/25/23 08/25/23 History inhalational spacing device (Allan #1 ea 05/20/21 08/25/23 Unknown Rx Aerosol [place] Enhancer spacer) ipratropium bromide 0.02 % 2.5 ml inhalation Q4H PRN 06/17/22 08/25/23 Unknown History solution for inhalation Shortness Of Breath Or Wheezing nebulizer accessories #1 ea 06/18/22 08/25/23 Unknown Rx albuterol sulfate 2.5 mg/3 mL 2.5 mg inhalation Q4H PRN 08/21/22 08/25/23 Unknown History (0.083 %) solution for nebulization Shortness Of Breath Or Wheezing ascorbic acid (vitamin C) 500 mg 1,000 mg PO DAILY 08/21/22 08/25/23 08/25/23 History tablet (Vitamin C) fluticasone propionate 50 1 spray intranasal DAILY 08/21/22 08/25/23 08/25/23 History mcg/actuation nasal spray,suspension lidocaine 5 % topical ointment 1 applic topical DAILY PRN Pain 08/21/22 08/25/23 Unknown History naloxone 4 mg/actuation nasal spray 4 mg intranasal Q3M PRN Opioid 08/21/22 08/25/23 Unknown History Overdose tamsulosin 0.4 mg capsule 0.8 mg PO QPM 08/21/22 08/25/23 08/24/23 History vit C 250 mg-vit E 90 mg-zinc 40 1 cap PO BID 08/21/22 08/25/23 08/25/23 History mg-copper 1 [id number] capsule (PreserVision AREDS-2) zinc gluconate 50 mg tablet 50 mg PO DAILY 08/21/22 08/25/23 08/25/23 History diltiazem HCl 240 mg 240 mg PO DAILY #60 tabs 08/27/22 08/25/23 08/25/23 Rx tablet,extended release 24 hr (Cardizem LA) budesonide-formoterol HFA 160 2 puff inhalation BID #10.2 grams 05/11/23 08/25/23 08/25/23 Rx mcg-4.5 mcg/actuation aerosol inhaler (Symbicort) calcium acetate 667 mg tablet 1,334 mg PO TID 05/11/23 08/25/23 08/25/23 History carboxymethylcellulose sodium 0.5 1 drp ophthalmic (eye) QID PRN Dry 05/11/23 08/25/23 Unknown History % eye drops (Refresh Tears) Eye(S) ipratropium 0.5 mg-albuterol 3 mg 3 ml inhalation Q4H PRN wheezing 05/11/23 08/25/23 Unknown Rx (2.5 mg base)/3 mL nebulization #90 mL soln loratadine 10 mg tablet (Allergy 10 mg PO DAILY 05/11/23 08/25/23 08/25/23 History Relief (loratadine)) lorazepam 0.5 mg tablet See Rx Instructions .Route .COMPLEX 05/11/23 08/25/23 Unknown History primidone 50 mg tablet 50 mg PO BID 05/11/23 08/25/23 08/25/23 History ropinirole 1 mg tablet 1 mg PO BEDTIME 05/11/23 08/25/23 08/24/23 History tiotropium bromide 18 mcg capsule 1 cap inhalation DAILY #60 05/11/23 08/25/23 08/25/23 Rx with inhalation device (Spiriva inhalations with HandiHaler) carbamide peroxide 6.5 % ear drops 4 drp otic (ear) Q30D PRN Ear Wax 05/18/23 08/25/23 Unknown History diphenhydramine 25 2 tab PO BEDTIME 05/18/23 08/25/23 08/24/23 History mg-acetaminophen 500 mg tablet (Tylenol PM Extra Strength) fluoxetine 20 mg capsule 60 mg PO QAM 05/18/23 08/25/23 08/25/23 History guaifenesin 400 mg tablet 400 mg PO Q4H PRN Congestion 05/18/23 08/25/23 Unknown History melatonin 5 mg tablet 10 mg PO BEDTIME 05/18/23 08/25/23 08/24/23 History nystatin 100,000 unit/mL oral 10 ml PO TID PRN unknown 05/18/23 08/25/23 Unknown History suspension omeprazole 40 mg capsule,delayed 40 mg PO QAM 05/18/23 08/25/23 08/25/23 History release polyvinyl alcohol 1.4 % eye drops 2 drp ophthalmic (eye) BID PRN Dry 05/18/23 08/25/23 Unknown History (Artificial Tears (polyvinyl Eyes alcohol)) vitamin B complex-vitamin C-folic 1 tab PO DAILY 05/18/23 08/25/23 08/25/23 History acid 0.8 mg tablet (Renal-Kerrie) furosemide 80 mg tablet (Lasix) 40 mg (1/2 x 80 mg) PO BID 30 days 05/20/23 08/25/2308/24/24 Rx #30 tabs albuterol sulfate 90 mcg/actuation 1 inh inhalation QID PRN shortness 06/08/23 08/25/23 Unknown Rx aerosol inhaler (Ventolin HFA) of breath or wheezing #8.5 grams sodium chloride 3 % for 4 ml inhalation BID PRN congestion 07/15/23 08/25/23 08/24/23 Rx nebulization #240 mL acetaminophen 325 mg tablet 325 - 650 mg PO QID PRN Pain 08/25/23 08/25/23 Unknown History amiodarone 200 mg tablet 200 mg PO DAILY 08/25/23 08/25/23 08/25/23 History carbidopa 10 mg-levodopa 100 mg 0.5 tab PO BID 08/25/23 08/25/23 08/25/23 History tablet lisinopril 10 mg tablet 10 mg PO DAILY 08/25/23 08/25/23 08/25/23 History oxycodone 10 mg tablet 10 mg PO Q6H PRN Pain 08/25/23 08/25/23 Unknown History Allergies Allergy/AdvReac Type Severity Reaction Status Date / Time Iodinated Contrast Media Allergy Severe anaphylaxis Verified 08/25/23 13:53 Current Medications Generic Name Dose Route Start Last Admin Trade Name Freq PRN Reason Stop Dose Admin Acetaminophen 325 - 650 mg 08/25/23 15:55 09/10/23 20:40 Acetaminophen 325 Mg Tablet PO 325 mg QID PRN Administration Pain Al Hydrox/Mg Hydrox/Simethicone 30 ml 09/04/23 09:18 09/06/23 11:12 Pkuw-Grq-Tvjewtove-Roberto 30 Ml Udc PO 30 ml Q4H PRN Administration INDIGESTION Amiodarone HCl 400 mg 09/12/23 09:00 09/14/23 08:44 Amiodarone 200 Mg Tablet PO 400 mg BID SHANTE Administration Artificial Tears 1 drop 08/25/23 16:17 09/02/23 21:14 Artificial Tears Op Soln 15 Ml Btl OPHTHALMIC 1 drop QID PRN Administration Dry Eye(S) Aspirin 81 mg 08/26/23 09:00 09/14/23 08:44 Aspirin 81 Mg Ec Tablet PO 81 mg DAILY SHANTE Administration Atorvastatin Calcium 40 mg 08/25/23 21:00 09/13/23 18:22 Atorvastatin 40 Mg Tablet PO 40 mg QPM SHANTE Administration Calcium Acetate 1,334 mg 08/25/23 15:55 09/14/23 14:55 Calcium Acetate 667 Mg Capsule PO Not Given TID SHANTE Diltiazem HCl 60 mg 09/14/23 08:30 09/14/23 14:55 Diltiazem 60 Mg Tablet PO Not Given Q6H SHANTE Fludrocortisone Acetate 0.1 mg 09/10/23 09:00 09/14/23 08:44 Fludrocortisone 0.1 Mg Tablet PO 0.1 mg DAILY SHANTE Administration Fluoxetine HCl 60 mg 08/26/23 06:00 09/14/23 05:42 Fluoxetine 20 Mg Capsule PO 60 mg QAM SHANTE Administration Heparin Sodium (Porcine) 5,000 unit 09/10/23 18:00 09/14/23 05:43 Heparin 5,000 Unit/Ml Inj 1 Ml SUBCUT 5,000 unit Q12H SHANTE Administration Meropenem 1,000 mg/ Sodium 50 mls @ 100 mls/hr 09/08/23 10:00 09/14/23 10:55 Chloride IV Infused Q12H SHANTE Infusion Protocol Dextrose 250 mls @ 1,000 mls/hr 09/10/23 02:08 09/10/23 03:00 D10w IV Infused PRN PRN Infusion HYPOGLYCEMIA Diltiazem HCl 100 mg/ Sodium 100 mls @ 0 mls/hr 09/14/23 11:30 09/14/23 11:41 Chloride IV 5 mg/hr .Q0M SHANTE 5 mls/hr Administration Protocol Per Protocol Midodrine 10 mg 09/08/23 12:30 09/14/23 11:43 Midodrine 5 Mg Tablet PO 10 mg Q6H SHANTE Administration Morphine Sulfate 1 mg 09/08/23 12:24 09/11/23 22:44 Morphine 4 Mg/Ml Sdv 1 Ml IVP 1 mg Q4H PRN Administration SEVERE PAIN Ondansetron HCl 4 mg 08/25/23 15:55 09/10/23 12:30 Ondansetron 2 Mg/Ml Sdv 2 Ml IVP 4 mg Q8H PRN Administration vomiting, or N/V if npo Pantoprazole Sodium 40 mg 09/04/23 22:00 09/14/23 08:[address] 40 Mg Tablet PO 40 mg BID SHANTE Administration Prednisone 10 mg 09/10/23 08:54 09/14/23 08:44 Prednisone 10 Mg Tablet PO 10 mg DAILY SHANTE Administration Sevelamer Carbonate 800 mg 09/04/23 15:00 09/14/23 14:55 Sevelamer 800 Mg Tablet PO Not Given TID SHANTE PFSH Acute 2 PFSH: Medical History (Updated 09/11/23 @ 15:12 by Moisés Landon MD) Septic shock Pneumonia Acute encephalopathy Volume overload Acute exacerbation of chronic obstructive airways disease Acute respiratory failure with hypoxemia End-stage renal disease (ESRD) ESRD (end stage renal disease) GI bleed Acute respiratory failure with hypoxia Hyperkalemia NSTEMI (non-ST elevated myocardial infarction) Rib fractures Kidney lesion Acute anemia Abnormal CT scan, kidney Legally blind NATHALY (obstructive sleep apnea) Nightly CPAP Hyperkalemia Sepsis EDWIN (acute kidney injury) Chest pain Atrial fibrillation CHF (congestive heart failure) COPD (chronic obstructive pulmonary disease) 2L Smoker Hyperlipidemia Hypertension History of type 2 diabetes mellitus Coronary artery disease UTI (urinary tract infection) Pyelonephritis of left kidney Surgical History History of heart artery stent Family History Mother Skin cancer (melanoma) Heart attack Social History Smoking and tobacco/nicotine status: former use of tobacco/nicotine Quit status (tobacco/nicotine): has quit using Year quit tobacco: August 2020 [id number] Second hand smoke exposure: Yes Alcohol intake: never Substance/Drug Use: never Caregiver/support person: Yes Lives independently: Yes Household members: significant other Marital status: service: Yes Current occupational status: retired and disabled Pets and animals: Yes Do you think of yourself as: Straight/Heterosexual Current gender identity: Male Vitals/I&O/Wt Last Vital Signs Temp 98.7 F 09/14/23 16:32 Pulse 110 H 09/14/23 16:00 Resp 17 09/14/23 16:00 BP 97/70 09/14/23 16:00 Pulse Ox 94 09/14/23 16:00 O2 Del Method Nasal Cannula 09/14/23 07:48 O2 Flow Rate 2.5 09/14/23 07:48 FiO2 40 09/14/23 13:33 09/14/23 09/14/23 09/14/23 06:59 14:59 22:59 Intake Total 290 / 1060 590 / 590 100 / 690 Output Total 0 / 2471 0 / 0 Balance 290 / -1411 590 / 590 100 / 690 Weight last 48 hrs Weight 313 lb 0.902 oz Weight 305 lb 5.443 oz Weight 310 lb 3.046 oz Physical Exam 2 Narrative: The patient is currently obtunded/near comatose. Patient will moan out loud periodically during manipulation of his right foot or right hand. Patient does not follow commands. Pupils 4 mm reactive to light sluggishly. Motor testing: Patient displaying decorticate posture. Patient will withdraw his toes slightly on the left and right to painful stimuli. Patient does not follow commands. Deep tendon reflex revealed plantar responses bilaterally. Sensory examination: Patient withdraws toes slightly to painful stimuli applied to his nailbeds on his feet. Patient moaned out wants during passive range of motion of his right hand but this was not reduplicated with repeated maneuvers of the right hand. Throat clear. Lungs revealed no obvious wheezing. Extremities revealed some edema. There was no cyanosis. Data 09/14/23 05:49 09/14/23 16:00 A&P Assessment and plan (1) Acute encephalopathy: Impression: 1. Acute metabolic encephalopathy, etiology unclear. Note: Surface EEG recording performed at the bedside revealed findings consistent with a diffuse encephalopathic process secondary to generalized slowing of the background rhythm. No seizure activity was seen. Plan: 1. Lab for TSH, free T3, free T4, ammonia level, thyroglobulin antibody, thyroid peroxidase antibody 2. Start thiamine 100 mg IV daily 3. Agree with current treatment plan 4. Resume Lyrica 100 mg twice daily via tube 5. Resume Sinemet 25/100 mg 3 times daily via tube Consult Attestations 2 Medical Necessity Statement: The patient was evaluated by neurology for a diffuse encephalopathic process/obtunded/comatosed Coding Level of Care Code 67607 Diagnoses Acute encephalopathy G93.40
[2023-09-14 18:04] LABS: Ammonia 56 umol/L (16-60)
[2023-09-14 18:05] LABS: Thyroid Stimulating Hormone 3.01 uIU/mL (0.27-4.20); Vitamin B12 703 pg/mL (232-1245)
[2023-09-14 20:30] LABS: Lyme Disease AB (IGG),IBL NO BANDS DETECTED; Lyme Disease AB (IGM), IBL NO BANDS DETECTED
[2023-09-14 20:30] LABS: Free T4 Free Thyroxine 1.35 ng/dL (0.82-1.77)
[2023-09-14] MEDS: morphine 4 mg/mL SDV 1 mL 1 MG IVP (20:59)
[2023-09-14 22:35] LABS: St. Louis Enceph.Virus IGG CSF <1:1; St. Louis Enceph.Virus IGM CSF <1:1
[2023-09-15] VITALS (33 sets, daily range): BP systolic 82–143; BP diastolic 50–75; PULSE 102–137; RESP 15–35; TEMP 36.1–37.6; O2SAT 89–97
[2023-09-15 05:03] LABS: Basophils # 0.2 10^3/uL (0.0-0.1); Basophils % 0.4 %; Hematocrit 37.6 % (37-53); Lymphocytes # 1.4 10^3/uL (0.8-4.8); Lymphocytes % 2.5 %; Mean Corpuscular HGB Conc 31.6 g/dL (30-55); Mean Corpuscular Hemoglobin 28.3 pg (27-33); Mean Corpuscular Volume 89.3 fl (82-101); Mean Platelet Volume 11.7 fL (7.4-10.4); Monocytes # 2.1 10^3/uL (0.2-0.9); Monocytes % 3.8 %; Neutrophils # 51.02 10^3/uL (1.8-7.7); Neutrophils % 91.2 %; Nucleated Red Blood Cells % 0.1 %; Platelet Count 493 10^3/cmm (157-399); Red Blood Count 4.21 10^6/uL (3.85-5.65)
[2023-09-15] MEDS: heparin 5,000 unit/mL INJ 1 mL 5000 UNIT SUBCUT ×2 (05:16→17:36)
[2023-09-15 05:17] LABS: White Blood Count 55.97 10^3/uL (3.29-11.43)
[2023-09-15 05:34] LABS: Anion Gap 27.1 (5-19); Calcium 9.6 mg/dL (8.5-10.5); Carbon Dioxide 20 mmol/L (22-29); Chloride 96 mmol/L (98-107); Creatinine Clr Calc Pharmacy 12.7296; Glomerular Filtration Rate 6.8 mL/min (90-130); Glucose 114 mg/dL (65-115); Osmolality Calculated 315 mOsm/kg (285-295); Potassium 5.1 mmol/L (3.5-5.1); Sodium 138 mmol/L (136-145)
[2023-09-15 05:40] LABS: Blood Urea Nitrogen 91 mg/dL (8-23)
[2023-09-15] MEDS: dilTIAZem 100 MG in sodium chloride 0.9% (add-van) 100 ML IV (06:24)
--- NOTE | 2023-09-15 09:05 | P.PN_ITS ---
Subjective 2 Subjective: on bipap ON cARDIAZEM DRIP Medications: Reviewed: Yes Vitals/I&O/Wt Last Vital Signs Temp 97.1 F L 09/15/23 05:00 Pulse 108 H 09/15/23 08:04 Resp 17 09/15/23 08:03 BP 91/59 09/15/23 08:00 Pulse Ox 96 09/15/23 08:04 O2 Del Method BiPAP 09/15/23 08:03 O2 Flow Rate 2.5 09/14/23 07:48 FiO2 40 09/15/23 08:04 09/14/23 09/15/23 09/15/23 22:59 06:59 14:59 Intake Total 200 / 790 143.583 / 933.583 Output Total 0 / 0 Balance 200 / 790 143.583 / 933.583 Weight last 48 hrs Weight 141.5 kg Weight 142 kg Weight 138.5 kg Physical Exam 2 Narrative: on bipap AMS Data 09/15/23 04:29 09/15/23 04:29 A&P Assessment and plan (1) ESRD (end stage renal disease): Plan 1. End-stage renal disease: On MWF schedule as patient outpatient ,HD toDAY 3. Acute on chronic respiratory failure: Secondary to sleep apnea COPD, now has pneumonia, on BIPAP 4. History of A-fib 5. aNEMIA : RENATE with HD 6. metabolic encephalopathy, 7. Hyperkalemia , low K diet ,repeat bmp 8 MBD : added renvela 9. Hypotension : improved ,s/p pressors, on midodrine - on steroids and IV albumin and Midodrine , weaning steroids Patient evaluated using audiovisual cart. Time spent 20 minutes. Attestations 2 Medical Necessity Statement*: PER MANUEL Coding Level of Care Code Acute Code for Chg Fwd Diagnoses ESRD (end stage renal disease) N18.6
--- NOTE | 2023-09-15 09:33 | XR_ITS ---
WS: [id number] Exam: XR chest 1V portable [id number] Date/Time of Exam: 09/15/2023 9:54 AM Reason For Exam: ng tube Comparison 09/14/2023. An NG tube has been placed and the ends in the body the stomach. Right-sided IJ double lumen catheter ends at the region of the cavoatrial junction. Left-sided PICC line also appears to end at the cavoa trial junction. The lungs are fully expanded as visualized. Parts of the lateral inferior RIGHT lung are out of the [id number]. The heart is enlarged but unchanged in size. IMPRESSION: 1. NG tube ending in the body of the stomach. 2. No other significant change. 3. Parts of the RIGHT chest are out of the [id number]-ibld.
--- NOTE | 2023-09-15 09:44 | PC.NURSE ---
Patient lethargic, withdrawals from pain but not following commands or responding verbally. order received for NG tube for PO meds
--- NOTE | 2023-09-15 09:45 | PC.SOCIAL ---
IMM Update Pg. 2 of IMM updated copy provided at bedside.
[2023-09-15 09:50] LABS: Lactic Sepsis W/Reflex 1.3 mmol/L (0.5-2.2)
[2023-09-15 09:59] LABS: Procalcitonin 1.27 ng/mL (0-0.5)
[2023-09-15 10:04] LABS: C Reactive Protein 373.3 mg/L (0.0-4.9)
[2023-09-15] MEDS: aspirin 81 mg EC Tablet PO (10:24)
[2023-09-15] MEDS: dilTIAZem 60 mg Tablet PO ×3 (10:24→20:00)
[2023-09-15] MEDS: carbidopa-levodopa 25-100mg Tablet 1 EACH PO ×3 (10:24→20:00)
[2023-09-15] MEDS: amiodarone 200 mg Tablet 400 MG PO ×2 (10:24→17:36)
[2023-09-15] MEDS: calcium acetate 667 mg Capsule 1334 MG PO ×3 (10:24→20:00)
[2023-09-15] MEDS: predniSONE 10 mg Tablet PO (10:25)
[2023-09-15] MEDS: pantoprazole DR 40 mg Tablet PO ×2 (10:25→17:36)
[2023-09-15] MEDS: sevelamer 800 mg Tablet PO ×3 (10:25→20:00)
[2023-09-15] MEDS: fludrocortisone 0.1 mg Tablet 0.100000000000000006 MG PO (10:26)
[2023-09-15] MEDS: pregabalin 100 mg Capsule PO ×2 (10:28→17:37)
[2023-09-15] MEDS: albumin 12.5 GM/50 ML VIAL IV (10:58)
[2023-09-15] MEDS: norepinephrine 4 MG/250 ML BAG 7.5 MG IV (11:11)
[2023-09-15] MEDS: midodrine 5 mg TABLET 10 MG PO ×2 (11:13→17:36)
[2023-09-15] MEDS: heparin, porcine 1,000 unit/mL INJ 10 mL 10000 UNIT INTRACATH (11:13)
[2023-09-15 11:44] LABS: LAB Peripheral Smear Sent for Review
[2023-09-15] MEDS: pyridostigmine 60 mg Tablet 30 MG PO ×2 (12:18→17:35)
[2023-09-15 12:29] LABS: Alanine Aminotransferase 7 U/L (0-41); Albumin Level 3.1 g/dL (3.5-5.2); Alkaline Phosphatase 133 U/L (40-130); Aspartate Amino Transferase 17 U/L (0-40); Gamma Glutamyl Transferase 26 U/L (8-61); Globulin 3.7 g/dL (1.3-4.6); Lipase 23 U/L (13-60); Total Bilirubin 0.5 mg/dL (0.15-1.2); Total Protein 6.8 g/dL (6.6-8.7)
--- NOTE | 2023-09-15 13:55 | PC.OT ---
ATTEMPTED TWICE. PATIENT IS IN DIALYSIS AND HAS BIPAP ON. WILL ATTEMPT AGAIN TOMORROW.
--- NOTE | 2023-09-15 14:12 | P.PN_ITS ---
Subjective 2 Subjective: - Patient was seen this morning, he is a lert to person, not to place, not to time remains globally encephalopathic overnight he did not take any of his medications and yesterday afternoon he did not take any of his medications, his encephalopathy became significant yesterday when he was sitting up in a chair, he had to be put back into bed, CT of the head showed no acute stroke, he had A- fib throughout the night, currently on a Cardizem drip ? He withdraws from pain, pupils equal round reactive light but remains globally encephalopathic ? EEG reviewed, shows diffuse slowing, no evidence of seizures, he was given a trial of Keppra without improvement of his mentation ? Overnight remains afebrile, normotensive ? Patient was receiving dialysis today became hypotensive, as he has not been taking his midodrine, due to poor mentation, became hypotensive started on Levophed ? Instructed nursing staff to place him on NG tube so we can get midodrine, will also start him on pyridostigmine, wean off prednisone ? Patient is developing worsening A-fib with RVR not responding to Cardizem, switched off Cardizem, start amiodarone with amiodarone bolus ? White blood cell count over 52,000, lactic acid within normal limits, afebrile, negative stop antibiotics as meropenem could be causing his mentation changes ? Will watch him for the next 24 hours off antibiotics of vancomycin off it meropenem monitor white count ? We will order peripheral smear If he does throw a fever we will obtain repeat blood cultures,, place him back on broad-spectrum antibiotic therapy ? MRI of the brain ordered ? If he does develop a fever, worsening leukocytosis will consider removing dialysis catheter, and culturing tip, and perform a JENA ? Will discuss with infectious disease ? Reviewed neurology, will touch base with neurology ? Patient was placed back on Lyrica but unfortunately could not take it due to poor mentation, NG tube has been placed he will get his Lyrica 100 twice daily his Sinemet, etc. chest x-ray reviewed no acute infiltrate -BUN is 91, encephalopathy could be from uremia, uremic encephalopathy, will see how he does after dialysis, Vitals/I&O/Wt Last Vital Signs Temp 99.0 F 09/15/23 12:00 Pulse 128 H 09/15/23 12:00 Resp 20 H 09/15/23 12:00 BP 92/63 09/15/23 12:00 Pulse Ox 90 09/15/23 12:00 O2 Del Method BiPAP 09/15/23 08:03 O2 Flow Rate 2.5 09/14/23 07:48 FiO2 40 09/15/23 08:04 09/14/23 09/15/23 09/15/23 22:59 06:59 14:59 Intake Total 200 / 790 143.583 / 933.583 75.500 / 75.500 Output Total 0 / 0 Balance 200 / 790 143.583 / 933.583 75.500 / 75.500 Weight last 48 hrs Weight 141.5 kg Weight 142 kg Weight 138.5 kg Physical Exam 2 Const: COMMON NORMALS: no acute distress Resp: COMMON NORMALS: normal respiratory effort, No retractions, No use of accessory muscles and clear to auscultation bilaterally AUSCULTATION: clear to auscultation bilaterally Cardio: COMMON NORMALS: regular rate, regular rhythm, S1 normal heart sound present and S2 normal heart sound present RATE: regular rate RHYTHM: r egular rhythm HEART SOUNDS: S1 normal heart sound present and S2 normal heart sound present GI: COMMON NORMALS: Normal to inspection, nondistended, normoactive bowel sounds present and non-tender Extremity: COMMON NORMALS: no pedal edema Neuro: OTHER: Grossly encephalopathic does not follow commands, does have spontaneous of upper and lower extremities, pupils equal round reactive light does withdraw from pain, Data 09/15/23 04:29 09/15/23 04:29 A&P Assessment and plan (1) Deep tissue injury: (2) Hypercapnic respiratory failure: Qualifiers: Chronicity: acute on chronic Qualified Code(s): J96.22 - Acute and chronic respiratory failure with hypercapnia (3) ESRD (end stage renal disease): (4) Hypertension: Qualifiers: Hypertension type: unspecified Qualified Code(s): I10 - Essential (primary) hypertension (5) Coronary artery disease: Qualifiers: Associated angina: without angina Coronary Disease-Associated Artery/Lesion type: unspecified vessel or lesion type [place] vs. transplanted heart: [place] heart Qualified Code(s): I25.10 - Atherosclerotic heart disease of [place] coronary artery without angina pectoris (6) Atrial fibrillation: Qualifiers: Atrial fibrillation type: unspecified Qualified Code(s): I48.91 - Unspecified atrial fibrillation (7) NATHALY (obstructive sleep apnea): (8) Fall: Qualifiers: Encounter type: subsequent encounter Qualified Code(s): W19.XXXD - Unspecified fall, subsequent encounter (9) Physical deconditioning: (10) Elevated WBC count: Qualifiers: Leukocytosis type: unspecified Qualified Code(s): D72.829 - Elevated white blood cell count, unspecified (11) Acute encephalopathy: (12) Septic shock: (13) Uremic encephalopathy: (14) Dysautonomia: (15) Post ICU syndrome: (16) Intensive care (ICU) myopathy: (17) Protein calorie malnutrition: Plan Septic shock, likely secondary to bilateral lower lobe pneumonia, resolved -WBC count trending downwards, Pro-Nathan, CRP trending downwards ? Initially when patient was admitted there was concerns for pneumonia he was found to vancomycin meropenem, which was eventually discontinued as he completed 7 days however -CT CHEST ? CT/[place] [id number] IMPRESSION: 1. Bilateral lower lobe pneumonia, left worse than right. 2. There are emphysematous changes in the lungs. 3. Multivessel atherosclerotic disease which involves the coronary arteries. -Repeat CT scan abdomen pelvis and chest, and spine, done without contrast due to contrast allergy, no new acute findings -Does not urinate -He has dialysis port can be a source of infection, blood cultures from the port so far negative, this fairly unlikely -Repeat blood cultures, so far negative -repeat CAT scan of the spine, without contrast, No evidence of discitis, vertebral osteomyelitis, or epidural abscess ? Does have poor dentition but no evidence of dental abscess ? Certainly meningitis could be a source infection as he has waxing waning mentation, episodes of confusion afebrile, I doubt bacterial meningitis, as he has been on broad-spectrum antibiotic therapy but certainly lumbar puncture relatively lackluster, micafungin has been stopped continue IV antibiotics -CSF does show elevated proteins, low glucose, elevated WBC, possible viral meningitis ?added acyclovir for possible viral meningitis, CSF studies negative for HSV -Follow CSF culture so far negative ? Patient's Fungitell was positive he has no immunocompromise state, however certainly fungal infection could be possibility, so for no significant events of fungal infection, stopped micafungin ? Tagged white blood cell scan ordered, no acute findings -Fungal studies ordered, CSF viral studies ordered ? Plan, ? stop Vancomycin -meropenem ? Micafungin stopped 09/10/2023 -stop acyclovir -stop doxyycline -Midodrine -Albumin ? Status stable, prognosis guarded ? DNR/DNI ? Antiplatelet and anticoagulant therapy heparin Dysautonomia -Likely secondary to Parkinson's disease, likely etiology behind patient's episodes of hypotension with dialysis and during the day, as patient's lactic acid is within normal limits, no current evidence of septic shock, ? Continue midodrine Acute encephalopathy, resolving ? Alert to person, to place, not to time ? Does follow commands ? Likely some component initially secondary polypharmacy related to permitting, Lyrica which has been discontinued ? Continues to have intermittent episodes of encephalopathy, start zyprexa tonight -Uremic encephalopathy playing a role, improving -Prolonged hospitalization, ICU syndrome Uremic encephalopathy, improving ? Likely sec to steroids, will wean steroids End-stage renal disease, on dialysis, Diminished pulses likely secondary to sepsis septic shock, resolved CONCLUSIONS 1. Noncompressible ankle vessels bilaterally 2. Abnormal Doppler waveforms, may suggest collateral filling in the infrapopliteal was vessels, bilaterally. 3. Consider CTA to better evaluate peripheral arteries, if clinically indicated COPD exacerbation, resolved Acute hypercapnic respiratory failure, needs to use BiPAP scheduled during the night Hypertension Atrial fibrillation, currently back in A-fib with RVR, requiring titration of medications on amiodarone drip Morbid obesity Physical deconditioning, protein calorie malnutrition, PT OT, speech therapy eval, dietary eval -- Patient was seen this morning, he is alert to person, not to place, not to time remains globally encephalopathic overnight he did not take any of his medications and yesterday afternoon he did not take any of his medications, his encephalopathy became significant yesterday when he was sitting up in a chair, he had to be put back into bed, CT of the head showed no acute stroke, he had A- fib throughout the night, currently on a Cardizem drip ? He withdraws from pain, pupils equal round reactive light but remains globally encephalopathic ? EEG reviewed, shows diffuse slowing, no evidence of seizures, he was given a trial of Keppra without improvement of his mentation ? Overnight remains afebrile, normotensive ? Patient was receiving dialysis today became hypotensive, as he has not been taking his midodrine, due to poor mentation, became hypotensive started on Levophed ? Instructed nursing staff to place him on NG tube so we can get midodrine, will also start him on pyridostigmine, wean off prednisone ? Patient is developing worsening A-fib with RVR not responding to Cardizem, switched off Cardizem, start amiodarone with amiodarone bolus ? White blood cell count over 52,000, lactic acid within normal limits, afebrile, negative stop antibiotics as meropenem could be causing his mentation changes ? Will watch him for the next 24 hours off antibiotics of vancomycin off it meropenem monitor white count ? We will order peripheral smear If he does throw a fever we will obtain repeat blood cultures,, place him back on broad-spectrum antibiotic therapy ? MRI of the brain ordered ? If he does develop a fever, worsening leukocytosis will consider removing dialysis catheter, and culturing tip, and perform a JENA ? Will discuss with infectious disease ? Reviewed neurology, will touch base with neurology ? Patient was placed back on Lyrica but unfortunately could not take it due to poor mentation, NG tube has been placed he will get his Lyrica 100 twice daily his Sinemet, etc. chest x-ray reviewed no acute infiltrate -BUN is 91, encephalopathy could be from uremia, uremic encephalopathy, will see how he does after dialysis, -Examined multiple times throughout the morning, requiring Levophed up to 20, requiring amiodarone drip, A-fib with RVR, encephalopathy, uremia, leukocytosis, spoke to patient, spoke to nursing staff, Attestations 2 Medical Necessity Statement*: Patient requires hospitalization for A-fib with RVR, shock, requiring 20 of Levophed, on dialysis, with encephalopathy, recurrent further workup, leukocytosis Diagnoses Deep tissue injury T14.8XXA Acute on chronic respiratory failure with hypercapnia J96.22 Chronicity: acute on chronic ESRD (end stage renal disease) N18.6 Hypertension, unspecified type I10 Hypertension type: unspecified Coronary artery disease involving [place] heart without angina pectoris, unspecified vessel or lesion type I25.10 Associated angina: without angina Coronary Disease-Associated Artery/Lesion type: unspecified vessel or lesion type [place] vs. transplanted heart: [place] heart Atrial fibrillation, unspecified type I48.91 Atrial fibrillation type: unspecified NATHALY (obstructive sleep apnea) G47.33 Fall, subsequent encounter W19.XXXD Encounter type: subsequent encounter Physical deconditioning R53.81 Leukocytosis, unspecified type D72.829 Leukocytosis type: unspecified Acute encephalopathy G93.40 Septic shock A41.9; R65.21 Uremic encephalopathy G93.49; N19 Dysautonomia G90.1 Post ICU syndrome Intensive care (ICU) myopathy G72.81 Protein calorie malnutrition E46
[2023-09-15] MEDS: norepinephrine 4 MG/250 ML BAG 75 MG IV (14:21)
[2023-09-15] MEDS: atorvastatin 40 mg Tablet PO (17:36)
[2023-09-15] MEDS: norepinephrine 4 MG/250 ML BAG 22.5 MG IV (20:32)
--- NOTE | 2023-09-15 23:13 | PC.HD ---
Hypotension during HD required albumin administration and restarting Levophed gtt which titrated to max 20mcg/min per [employer]. Hypotension persisted when UF on so fluid removal only net 300, Dr Liang and Dr Landon updated throughout treatment.
[2023-09-16] VITALS (47 sets, daily range): BP systolic 68–137; BP diastolic 26–90; PULSE 80–109; RESP 20–43; TEMP 36.6–37.4; O2SAT 6–99; BMI 43.4
[2023-09-16] MEDS: pyridostigmine 60 mg Tablet 30 MG PO ×4 (00:17→17:23)
[2023-09-16] MEDS: midodrine 5 mg TABLET 10 MG PO ×4 (00:17→17:24)
[2023-09-16 00:41] LABS: VDRL on CSF NON-REACTIVE
[2023-09-16] MEDS: dilTIAZem 60 mg Tablet PO ×4 (03:00→20:18)
[2023-09-16 05:30] LABS: Basophils # 0.2 10^3/uL (0.0-0.1); Basophils % 0.3 %; Hematocrit 34.8 % (37-53); Lymphocytes # 1.4 10^3/uL (0.8-4.8); Lymphocytes % 2.9 %; Mean Corpuscular HGB Conc 32.2 g/dL (30-55); Mean Corpuscular Hemoglobin 28.3 pg (27-33); Mean Corpuscular Volume 87.9 fl (82-101); Mean Platelet Volume 11.7 fL (7.4-10.4); Monocytes # 2.6 10^3/uL (0.2-0.9); Monocytes % 5.3 %; Neutrophils # 42.64 10^3/uL (1.8-7.7); Neutrophils % 88.7 %; Nucleated Red Blood Cells % 0.1 %; Platelet Count 434 10^3/cmm (157-399); Red Blood Count 3.96 10^6/uL (3.85-5.65); Red Cell Distribution Width 14.7 % (12.1-15.1)
[2023-09-16 05:44] LABS: White Blood Count 48.11 10^3/uL (3.29-11.43)
[2023-09-16 05:53] LABS: Blood Urea Nitrogen 58 mg/dL (8-23); Calcium 9.4 mg/dL (8.5-10.5); Carbon Dioxide 25 mmol/L (22-29); Chloride 91 mmol/L (98-107); Glomerular Filtration Rate 10.6 mL/min (90-130); Glucose 118 mg/dL (65-115); Osmolality Calculated 293 mOsm/kg (285-295); Sodium 133 mmol/L (136-145)
[2023-09-16 05:59] LABS: Anion Gap 21.5 (5-19); Potassium 4.5 mmol/L (3.5-5.1)
[2023-09-16] MEDS: fluoxetine 20 mg Capsule 60 MG PO (06:02)
[2023-09-16] MEDS: heparin 5,000 unit/mL INJ 1 mL 5000 UNIT SUBCUT ×2 (06:02→17:24)
[2023-09-16] MEDS: norepinephrine 4 MG/250 ML BAG 22.5 MG IV (07:43)
--- NOTE | 2023-09-16 07:57 | PM.PN ---
Subjective Subjective: s/p HD yesterday Medications: Reviewed: Yes Vitals/I&O/Wt Last Vital Signs Temp 99.4 F 09/16/23 04:00 Pulse 103 H 09/16/23 06:00 Resp 28 H 09/16/23 06:00 BP 108/63 09/16/23 06:00 Pulse Ox 90 09/16/23 06:00 O2 Del Method BiPAP 09/16/23 06:00 O2 Flow Rate 40 09/15/23 21:00 FiO2 40 09/16/23 06:00 09/15/23 09/16/23 09/16/23 22:59 06:59 14:59 Intake Total 1058.87 / 1246.870 450 / 450 Output Total 857 / 857 Balance 201.87 / 389.870 450 / 450 Weight last 48 hrs Weight 141.152 kg Weight 140.4 kg Weight 141.5 kg Physical Exam Narrative: confused on bipap Data 09/16/23 05:18 09/16/23 05:18 A&P Assessment and plan (1) ESRD (end stage renal disease): Plan 1. End-stage renal disease: On [facility] schedule as patient outpatient ,HD done yesterday 3. Acute on chronic respiratory failure: Secondary to sleep apnea COPD, now has pneumonia, on BIPAP 4. History of A-fib 5. aNEMIA : RENATE with HD 6. metabolic encephalopathy, 7. Hyperkalemia , low K diet ,repeat bmp 8 MBD : added renvela 9. Hypotension : improved ,s/p pressors, on midodrine - on steroids and IV albumin and Midodrine , weaning steroids Patient evaluated using audiovisual cart. Time spent 20 minutes. Attestations Medical Necessity Statement*: per lauren Coding Level of Care Code Acute Code for Chg Fwd Diagnoses ESRD (end stage renal disease) N18.6
[2023-09-16] MEDS: aspirin 81 mg EC Tablet PO (09:42)
[2023-09-16] MEDS: pregabalin 100 mg Capsule PO ×2 (09:42→17:24)
[2023-09-16] MEDS: carbidopa-levodopa 25-100mg Tablet 1 EACH PO ×3 (09:42→20:18)
[2023-09-16] MEDS: sevelamer 800 mg Tablet PO ×3 (09:42→20:18)
[2023-09-16] MEDS: calcium acetate 667 mg Capsule 1334 MG PO ×3 (09:42→20:18)
[2023-09-16] MEDS: amiodarone 200 mg Tablet 400 MG PO ×2 (09:42→17:23)
[2023-09-16] MEDS: pantoprazole DR 40 mg Tablet PO ×2 (09:42→17:24)
[2023-09-16] MEDS: fludrocortisone 0.1 mg Tablet 0.100000000000000006 MG PO (09:43)
[2023-09-16 13:16] LABS: Hematocrit 34.3 % (37-53); Mean Corpuscular HGB Conc 32.9 g/dL (30-55); Mean Corpuscular Hemoglobin 28.8 pg (27-33); Mean Corpuscular Volume 87.5 fl (82-101); Mean Platelet Volume 12.1 fL (7.4-10.4); Platelet Count 418 10^3/cmm (157-399); Red Blood Count 3.92 10^6/uL (3.85-5.65); Red Cell Distribution Width 14.9 % (12.1-15.1)
[2023-09-16 13:20] LABS: Erythrocyte Sedimentation Rate 77 mm/hr (0-10)
[2023-09-16 13:28] LABS: Total Cells Counted 100 (0-100); White Blood Count 45.14 10^3/uL (3.29-11.43)
[2023-09-16] MEDS: ondansetron 2 mg/ML SDV 2 mL 4 MG IVP (13:30)
[2023-09-16 13:33] LABS: Vancomycin Random 26.2 ug/mL (20.0-40.0)
[2023-09-16 13:34] LABS: Absolute Neutrophil 38.4 10^3/cmm (1.4-6.5); Absolute Segmented Neutrophil 38.4 10/cmm (1.6-7.1); Anisocytosis 1+; Eosinophils 0 %; Giant Platelets 1+; Lymphocytes 5 %; Lymphocytes Absolute 3.2 10^3/cmm (1.2-3.4); Monocytes Absolute 3.6 10^3/cmm (0.1-0.6); Platelet Estimate Increased (Normal); Segmented Neutrophils 85 %
[2023-09-16 13:44] LABS: Cortisol Random 22.96 ug/dL (2.47-19.5)
[2023-09-16 14:10] LABS: Thyroid Stimulating Hormone 1.74 uIU/mL (0.27-4.20)
[2023-09-16 14:21] LABS: Ferritin 2042 ng/mL (30-400)
--- NOTE | 2023-09-16 14:35 | CTR_ITS ---
PROCEDURE INFORMATION: Exam: CT Abdomen And Pelvis Without Contrast Exam date and time: 09/16/2023 3:00 PM Age: 68 years old Clinical indication: Nausea and vomiting; Additional info: Feculent n/v TECHNIQUE: Imaging protocol: Computed tomography of the abdomen and pelvis without contrast. Radiation optimization: All CT scans at this facility use at least one of these dose optimization techniques: automated exposure control; mA and/or kV adjustment per patient size (includes targeted exams where dose is matched to clinical indication); or iterative reconstruction. COMPARISON: [place] [id number] 09/09/2023 11:53 AM RADIATION DOSE METRICS: Total DLP (mGy-cm): 1775.33 FINDINGS: Tubes, catheters and devices: The nasogastric tube is appropriately positioned with the tip in the stomach, well beyond the diaphragmatic hiatus. Lungs: There is ill-defined coarse reticular opacity in the lung bases bilaterally, greater on the left. Heart: There is trace pericardial effusion. Liver: There are subcentimeter hypodense hepatic nodules which are too small to fully characterize on this exam. Gallbladder and bile ducts: The gallbladder is distended and there is sludge in the lumen. There is pericholecystic edema at the gallbladder fundus. Pancreas: There is moderate atrophy of the pancreas. Spleen: The spleen is very small and contains calcifications. Adrenal glands: The adrenal glands are unremarkable. Kidneys and ureters: There is a nonobstructive stone in the left kidney. There is a 17 mm hemorrhagic cyst exophytic from the lower pole of the left kidney. There is no hydronephrosis or ureteral dilation. Stomach and bowel: The stomach is nondistended, limiting assessment of wall thickness. The small bowel is intermittently dilated and partially contrast and fluid-filled. The terminal ileum is nondistended and predominantly contrast filled. No definite transition point is visible. The ascending colon is stool distended. The transverse colon is gas and stool distended. The descending colon is mildly gas distended. The sigmoid is nondistended. There is mild sigmoid colonic diverticulosis without evidence of diverticulitis. No sign of colonic inflammation. No colonic or small bowel mural pneumatosis. Appendix: The appendix is not visible. Intraperitoneal space: There is new mild loculated simple ascites in the right upper and lower abdomen and deep pelvis. There is new mesenteric and omental edema in the right abdomen. No intraperitoneal free air. Vasculature: There is severe aortic atherosclerotic disease. No portal venous gas. There is severe calcific plaque with possible high-grade stenosis in celiac and superior mesenteric origins. Lymph nodes: There is no lymphadenopathy in the retroperitoneum, mesentery, pelvis or inguinal regions. Urinary bladder: The urinary bladder is nondistended, limiting assessment of wall thickness. Reproductive: The prostate and seminal vesicles are unremarkable. Bones/joints: There is mild degenerative disease in the lumbar spine. The pelvis and hips are unremarkable. There are healed left posterior lower rib fractures. Soft tissues: There is a moderate-sized fat containing umbilical hernia. CT/CT abdomen pelvis wo con [id number] IMPRESSION: 1. Loculated ascites and mesenteric/omental edema in the right abdomen, new since 09/09/2023. This finding is nonspecific and may be related to inflammation of the gallbladder or bowel, bowel ischemia, omental infarction, or an otherwise in occult inflammatory process. Given rapid progression of this finding, lymphangitic carcinomatosis is less likely. 2. Mild diffuse intermittent small bowel dilation suggests ileus. No pneumatosis or mural thickening to confirm ischemia or inflammation. There is contrast in the terminal ileum, excluding high-grade small bowel obstruction. 3. Calcific plaque with possible high-grade stenosis of the celiac and superior mesenteric artery origins. Consider follow-up CTA for better assessment of these vessels. 4. Distended gallbladder containing sludge. There is pericholecystic edema adjacent to the fundus. Acute cholecystitis is a possibility. Consider further evaluation with ultrasound. 5. Ill-defined coarse reticular opacity in the lung bases bilaterally, decreased since 09/09/2023, likely some combination of atelectasis and infection. 6. Subcentimeter liver nodules, too small to fully characterize. In a low-risk patient, this is most likely to be benign and no further follow-up is recommended. In a high-risk patient, follow-up MRI in 3-6 months is recommended (or earlier if warranted by the patient's specific clinical circumstances). (Reference: Harjinder) 7. Incidental findings above. COMMENTS: Consistent with the [place] [employer]'s Incidental Findings Committee white paper (J Am Lowell Radiol 2018): Any incidental renal lesion less than 1 cm or classified as too small to characterize, or any incidental cystic renal lesion characterized as simple-appearing, is likely benign. No follow-up imaging is recommended for these lesions per consensus recommendations based on imaging criteria. REFERENCES: Harjinder JACOBS, et al. Management of Incidental Liver Lesions on CT: A White Paper of the ACR Incidental Findings Committee. J Am Lowell Radiol. 2017;14(11):9627-1746.
[2023-09-16] MEDS: morphine 4 mg/mL SDV 1 mL 1 MG IVP (14:43)
--- NOTE | 2023-09-16 15:45 | P.PN_ITS ---
Subjective 2 Subjective: Patient was seen this morning he is alert to person, not to place, not to time he can follow commands moves bilateral upper extremities and lower extremities, still quite drowsy and encephalopathic but mentation is better compared to yesterday remains afebrile he is on 6 of Levophed, was initially on BiPAP, now on nasal cannula, ? Patient's family members came by, had a discussion about patient's improving uremia improving mentation, mentation improving with giving him back into the Lyrica, and his Sinemet, blood pressures are also improving with his midodrine, pyridostigmine, persistent leukocytosis, will continue to monitor I ordered a peripheral smear ? Spoke to pathologist, I ordered a peripheral smear, as I am potentially concerned for neutrophilic leukemia as an etiology behind his persistent leukocytosis he is afebrile, no significant infectious source found, cultures negative ? Ordered ferritin level, ? Later in the afternoon, patient had a significant episode of feculent vomit, NG tube was hooked to suction, had 200 cc of feculent material, will keep n.p.o., aspiration precautions, order CT scan abdomen pelvis on examination abdomen is distended, no guarding, no rebound, does have diffuse tenderness, does have a avid abdominal hernia which is reducible, no overlying skin changes -Currently on 6 of Levophed, DP PT pulse s present no mottling bilateral extremities, afebrile overnight, I spoke to patient's family, spoke to nursing staff, spoke to pathology Vitals/I&O/Wt Last Vital Signs Temp 98.5 F 09/16/23 07:00 Pulse 96 09/16/23 15:11 Resp 27 H 09/16/23 15:11 BP 106/66 09/16/23 14:00 Pulse Ox 91 09/16/23 15:11 O2 Del Method BiPAP 09/16/23 08:01 O2 Flow Rate 40 09/15/23 21:00 FiO2 40 09/16/23 08:01 09/16/23 09/16/23 09/16/23 06:59 14:59 22:59 Intake Total 490 / 490 Balance 490 / 490 Weight last 48 hrs Weight 141.152 kg Weight 140.4 kg Weight 141.5 kg Physical Exam 2 Const: COMMON NORMALS: no acute distress and patient oriented x3 Resp: COMMON NORMALS: normal respiratory effort, No retractions, No use of accessory muscles and clear to auscultation bilaterally AUSCULTATION: clear to auscultation bilaterally Cardio: COMMON NORMALS: regular rate, regular rhythm, S1 normal heart sound present and S2 normal heart sound present RATE: regular rate RHYTHM: r egular rhythm HEART SOUNDS: S1 normal heart sound present and S2 normal heart sound present Extremity: COMMON NORMALS: no pedal edema Neuro: COMMON NORMALS: patient oriented x3 Psych: COMMON NORMALS: mental status grossly normal Data 09/16/23 12:39 09/16/23 05:18 A&P Assessment and plan (1) Deep tissue injury: (2) Hypercapnic respiratory failure: Qualifiers: Chronicity: acute on chronic Qualified Code(s): J96.22 - Acute and chronic respiratory failure with hypercapnia (3) ESRD (end stage renal disease): (4) Hypertension: Qualifiers: Hypertension type: unspecified Qualified Code(s): I10 - Essential (primary) hypertension (5) Coronary artery disease: Qualifiers: Associated angina: without angina Coronary Disease-Associated Artery/Lesion type: unspecified vessel or lesion type Ruby vs. transplanted heart: blackfeet heart Qualified Code(s): I25.10 - Atherosclerotic heart disease of blackfeet coronary artery without angina pectoris (6) Atrial fibrillation: Qualifiers: Atrial fibrillation type: unspecified Qualified Code(s): I48.91 - Unspecified atrial fibrillation (7) NATHALY (obstructive sleep apnea): (8) Fall: Qualifiers: Encounter type: subsequent encounter Qualified Code(s): W19.XXXD - Unspecified fall, subsequent encounter (9) Physical deconditioning: (10) Elevated WBC count: Qualifiers: Leukocytosis type: unspecified Qualified Code(s): D72.829 - Elevated white blood cell count, unspecified (11) Acute encephalopathy: (12) Septic shock: (13) Uremic encephalopathy: (14) Dysautonomia: (15) Post ICU syndrome: (16) Intensive care (ICU) myopathy: (17) Protein calorie malnutrition: Plan Septic shock, likely secondary to bilateral lower lobe pneumonia, resolved -WBC count trending downwards, Pro-Nathan, CRP trending downwards ? Initially when patient was admitted there was concerns for pneumonia he was found to vancomycin meropenem, which was eventually discontinued as he completed 7 days however -CT CHEST ? CT/[place] [id number] IMPRESSION: 1. Bilateral lower lobe pneumonia, left worse than right. 2. There are emphysematous changes in the lungs. 3. Multivessel atherosclerotic disease which involves the coronary arteries. -Repeat CT scan abdomen pelvis and chest, and spine, done without contrast due to contrast allergy, no new acute findings -Does not urinate -He has dialysis port can be a source of infection, blood cultures from the port so far negative, this fairly unlikely -Repeat blood cultures, so far negative -repeat CAT scan of the spine, without contrast, No evidence of discitis, vertebral osteomyelitis, or epidural abscess ? Does have poor dentition but no evidence of dental abscess ? Certainly meningitis could be a source infection as he has waxing waning mentation, episodes of confusion afebrile, I doubt bacterial meningitis, as he has been on broad-spectrum antibiotic therapy but certainly lumbar puncture relatively lackluster, micafungin has been stopped continue IV antibiotics -CSF does show elevated proteins, low glucose, elevated WBC, possible viral meningitis ?added acyclovir for possible viral meningitis, CSF studies negative for HSV -Follow CSF culture so far negative ? Patient's Fungitell was positive he has no immunocompromise state, however certainly fungal infection could be possibility, so for no significant events of fungal infection, stopped micafungin ? Tagged white blood cell scan ordered, no acute findings -Fungal studies ordered, CSF viral studies ordered ? Plan, ? stop Vancomycin -meropenem ? Micafungin stopped 09/10/2023 -stop acyclovir -stop doxyycline -Midodrine -Albumin ? Status stable, prognosis guarded ? DNR/DNI ? Antiplatelet and anticoagulant therapy heparin Dysautonomia -Likely secondary to Parkinson's disease, likely etiology behind patient's episodes of hypotension with dialysis and during the day, as patient's lactic acid is within normal limits, no current evidence of septic shock, ? Continue midodrine, Start pyridostigmine Acute encephalopathy, resolving ? Alert to person, to place, not to time ? Does follow commands ? Likely some component initially secondary polypharmacy related to permitting, Lyrica -However now felt to be possibly withdrawal from Lyrica, Sinemet, which have been resumed at 100 mg twice daily of Lyrica, Sinemet ? Continues to have intermittent episodes of encephalopathy, -Uremic encephalopathy playing a role, improving -Prolonged hospitalization, ICU syndrome Uremic encephalopathy, improving ? Likely sec to steroids, will wean steroids End-stage renal disease, on dialysis, Diminished pulses likely secondary to sepsis septic shock, resolved CONCLUSIONS 1. Noncompressible ankle vessels bilaterally 2. Abnormal Doppler waveforms, may suggest collateral filling in the infrapopliteal was vessels, bilaterally. 3. Consider CTA to better evaluate peripheral arteries, if clinically indicated COPD exacerbation, resolved Acute hypercapnic respiratory failure, needs to use BiPAP scheduled during the night Hypertension Atrial fibrillation, currently back in A-fib with RVR, requiring titration of medications on amiodarone drip Morbid obesity Physical deconditioning, protein calorie malnutrition, PT OT, speech therapy eval, dietary eval Patient was seen this morning he is alert to person, not to place, not to time he can follow commands moves bilateral upper extremities and lower extremities, still quite drowsy and encephalopathic but mentation is better compared to yesterday remains afebrile he is on 6 of Levophed, was initially on BiPAP, now on nasal cannula, ? Patient's family members came by, had a discussion about patient's improving uremia improving mentation, mentation improving with giving him back into the Lyrica, and his Sinemet, blood pressures are also improving with his midodrine, pyridostigmine, persistent leukocytosis, will continue to monitor I ordered a peripheral smear ? Spoke to pathologist, I ordered a peripheral smear, as I am potentially concerned for neutrophilic leukemia as an etiology behind his persistent leukocytosis he is afebrile, no significant infectious source found, cultures negative ? Ordered ferritin level, ? Later in the afternoon, patient had a significant episode of feculent vomit, NG tube was hooked to suction, had 200 cc of feculent material, will keep n.p.o., aspiration precautions, order CT scan abdomen pelvis on examination abdomen is distended, no guarding, no rebound, does have diffuse tenderness, does have a avid abdominal hernia which is reducible, no overlying skin changes -Currently on 6 of Levophed, DP PT pulses present no mottling bilateral extremities, afebrile overnight, I spoke to patient's family, spoke to nursing staff, spoke to pathology Attestations 2 Medical Necessity Statement*: Patient requires hospitalization for acute encephalopathy, leukocytosis, nausea, vomiting, abdominal pain end-stage renal disease, prolonged hospitalization, deconditioning, Diagnoses Deep tissue injury T14.8XXA Acute on chronic respiratory failure with hypercapnia J96.22 Chronicity: acute on chronic ESRD (end stage renal disease) N18.6 Hypertension, unspecified type I10 Hypertension type: unspecified Coronary artery disease involving blackfeet heart without angina pectoris, unspecified vessel or lesion type I25.10 Associated angina: without angina Coronary Disease-Associated Artery/Lesion type: unspecified vessel or lesion type Ruby vs. transplanted heart: blackfeet heart Atrial fibrillation, unspecified type I48.91 Atrial fibrillation type: unspecified NATHALY (obstructive sleep apnea) G47.33 Fall, subsequent encounter W19.XXXD Encounter type: subsequent encounter Physical deconditioning R53.81 Leukocytosis, unspecified type D72.829 Leukocytosis type: unspecified Acute encephalopathy G93.40 Septic shock A41.9; R65.21 Uremic encephalopathy G93.49; N19 Dysautonomia G90.1 Post ICU syndrome Intensive care (ICU) myopathy G72.81 Protein calorie malnutrition E46
--- NOTE | 2023-09-16 15:52 | US_ITS ---
WS: [id number] RIGHT UPPER QUADRANT ULTRASOUND HISTORY: acute cholecystitis? COMPARISON: CT 09/16/2023 Liver: 19.5 cm in length. Liver is moderately enlarged. Coarse echotexture from hepatic steatosis or hepatocellular disease. No mass identified. The entire liver is not well visualized. There is a cyst in the mid RIGHT lobe of the liver measuring 1.8 cm. Portal Vein: Normal hepatopetal flow with monophasic waveform. Gallbladder: Gallbladder is mildly hydropic. There is sludge in the gallbladder but no stones identif ied. No definite pericholecystic fluid. Mild irregularity of the gallbladder wall. CBD: 0.6 cm Pancreas: Poorly visualized. Right kidney: 8.4 cm in length. Mild atrophy. No obstruction. Aorta and IVC: Poorly visualized aorta and IVC. The IVC is small caliber and collapsed as noted on th e CT from 09/16/2023. No Doppler was identified in the SMA. The SMA is heavily calcified by the noncon trast CT performed 09/16/2023. No ascites. IMPRESSION: 1. Mildly hydropic gallbladder with sludge. No stones. No pericholecystic fluid. There is mild nodul ar gallbladder wall thickening. Early changes of the gangrenous cholecystitis should be considered. O ther etiologies of gallbladder wall thickening are congestive heart failure, cirrhosis, ascites and h epatitis. 2. No common bile duct dilatation. 3. Mild atrophy RIGHT kidney. 4. No flow is identified in the SMA. Heavily calcified SMA was noted on the CT recently performed. C annot exclude GI tract ischemia. 5. Hepatic steatosis. 6. Collapsed IVC.
[2023-09-16 16:39] LABS: RMSF IGG DETECTED; RMSF IGM NOT DETECTED
[2023-09-16 17:03] LABS: Alanine Aminotransferase 7 U/L (0-41); Aspartate Amino Transferase 53 U/L (0-40); Gamma Glutamyl Transferase 35 U/L (8-61); Lipase 38 U/L (13-60); Total Bilirubin 0.5 mg/dL (0.15-1.2); Total Protein 6.8 g/dL (6.6-8.7)
[2023-09-16 17:05] LABS: Alkaline Phosphatase 156 U/L (40-130); Globulin 3.8 g/dL (1.3-4.6)
[2023-09-16 17:10] LABS: Lactic Sepsis W/Reflex 2.8 mmol/L (0.5-2.2)
[2023-09-16] MEDS: atorvastatin 40 mg Tablet PO (17:24)
[2023-09-16] MEDS: norepinephrine 4 MG/250 ML BAG 45 MG IV ×2 (18:20→22:53)
[2023-09-16 18:35] LABS: Reflex Lactate Order REFLEX LACTIC ORDERD
[2023-09-16 21:20] LABS: E. Chaffeensis AB IGG <1:64; E. Chaffeensis AB IGM <1:20
--- NOTE | 2023-09-16 21:52 | PC.NURSE ---
Patient on Amiodarone drip at a 0.5mg/min for [address] Bellamy was notified. She ordered to keep amiodarone running at a rate of 0.5mg/min.
[2023-09-17] VITALS (89 sets, daily range): BP systolic 59–154; BP diastolic 34–101; PULSE 70–100; RESP 16–30; TEMP 35.7–36.1; O2SAT 88–98; BMI 43.5
[2023-09-17] MEDS: pyridostigmine 60 mg Tablet 30 MG PO ×2 (00:22→05:29)
[2023-09-17] MEDS: midodrine 5 mg TABLET 10 MG PO ×2 (00:22→05:30)
[2023-09-17] MEDS: dilTIAZem 60 mg Tablet PO ×2 (02:10→08:31)
[2023-09-17] MEDS: vasopressin 40 UNIT/100 ML PREMIX IV (03:31)
[2023-09-17 04:02] LABS: Basophils # 0.2 10^3/uL (0.0-0.1); Basophils % 0.4 %; Hematocrit 31.7 % (37-53); Lymphocytes # 0.8 10^3/uL (0.8-4.8); Lymphocytes % 1.7 %; Mean Corpuscular HGB Conc 33.1 g/dL (30-55); Mean Corpuscular Hemoglobin 28.5 pg (27-33); Mean Corpuscular Volume 86.1 fl (82-101); Mean Platelet Volume 12.5 fL (7.4-10.4); Monocytes % 4.3 %; Neutrophils # 40.59 10^3/uL (1.8-7.7); Neutrophils % 89.2 %; Nucleated Red Blood Cells # 0.1 /100WBC; Nucleated Red Blood Cells % 0.2 %; Platelet Count 352 10^3/cmm (157-399); Red Blood Count 3.68 10^6/uL (3.85-5.65)
[2023-09-17 04:13] LABS: White Blood Count 45.48 10^3/uL (3.29-11.43)
[2023-09-17] MEDS: norepinephrine 4 MG/250 ML BAG 75 MG IV (04:15)
--- NOTE | 2023-09-17 05:03 | PC.NURSE ---
Levophed drip was maxed out so Dr. Bellamy was notified. Orders to start vasopressin drip were recieved from Dr. Bellamy.
[2023-09-17] MEDS: heparin 5,000 unit/mL INJ 1 mL 5000 UNIT SUBCUT (05:29)
[2023-09-17] MEDS: fluoxetine 20 mg Capsule 60 MG PO (05:29)
[2023-09-17 06:07] LABS: Blood Urea Nitrogen 80 mg/dL (8-23); Carbon Dioxide 20 mmol/L (22-29); Chloride 88 mmol/L (98-107); Creatinine Clr Calc Pharmacy 16.1967; Glucose 164 mg/dL (65-115); Osmolality Calculated 296 mOsm/kg (285-295); Sodium 129 mmol/L (136-145)
[2023-09-17 06:09] LABS: Anion Gap 27.2 (5-19); Potassium 6.2 mmol/L (3.5-5.1)
[2023-09-17 07:10] LABS: Thyroid Peroxidase Antobodies 246 IU/mL (<9)
[2023-09-17] MEDS: norepinephrine 4 MG/250 ML BAG 60 MG IV (08:09)
[2023-09-17 08:20] LABS: Fibrinogen Degradation Product <5 mcg/mL (LESS THAN 5)
[2023-09-17] MEDS: pregabalin 100 mg Capsule PO (08:30)
[2023-09-17] MEDS: aspirin 81 mg EC Tablet PO (08:31)
[2023-09-17] MEDS: carbidopa-levodopa 25-100mg Tablet 1 EACH PO (08:31)
[2023-09-17] MEDS: sevelamer 800 mg Tablet PO (08:31)
[2023-09-17] MEDS: amiodarone 200 mg Tablet 400 MG PO (08:31)
[2023-09-17] MEDS: fludrocortisone 0.1 mg Tablet 0.100000000000000006 MG PO (08:31)
[2023-09-17] MEDS: calcium acetate 667 mg Capsule 1334 MG PO (08:31)
--- NOTE | 2023-09-17 08:33 | ECG_ITS ---
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 Measurements Intervals [place] Rate: 85 P: 0 DC: 0 QRS: 17 QRSD: 96 T: 38 QT: 393 QTc: 469 Interpretive Statements ATRIAL FIBRILLATION LOW QRS VOLTAGE IN EXTREMITY LEADS [QRS DEFLECTION < 0.5 mV IN LIMB LEADS] PATTERN CONSISTENT WITH PULMONARY DISEASE Compared to ECG 09/11/2023 13:44:18 Low QRS voltage now present ST (T wave) deviation no longer present Electronically Signed On 09-17-2023 17:02:02 CDT by Gadiel Kinsey M.D. [id number]
--- NOTE | 2023-09-17 08:35 | XR_ITS ---
WS: [id number] Exam: XR chest 1V portable [id number] Date/Time of Exam: 09/17/2023 8:35 AM Reason For Exam: sob Comparison 09/15/2023. The lungs are clear and fully inflated. The heart is enlarged but unchanged in size. No pleural effus ions. An enteric tube extends below the diaphragm but the tip is not visible. A left-sided PICC line ends in the lower one third of the SVC. A right-sided double-lumen central line ends in the region of the cavoatrial junction. Bony structures are intact. IMPRESSION: 1. No acute cardiopulmonary finding. 2. Cardiac enlargement unchanged. 3. PICC line and central line both in satisfactory position unchanged. Enteric tube extending below t he diaphragm but the tip is not visible.
--- NOTE | 2023-09-17 08:35 | XR_ITS ---
WS: [id number] Exam: XR KUB portable [id number] Date/Time of Exam: 09/17/2023 8:57 AM Reason For Exam: abdominal Large amount of retained stool throughout the colon. There are several mildly prominent small bowel l oops in the mid and lower abdomen. This may represent mild ileus. An enteric tube is looped in the st omach. No free air identified. Visualized osseous structures are unremarkable. Organ margins are obsc ured. IMPRESSION: 1. Constipation. 2. Several mildly prominent gas-filled small bowel loops in the mid and lower abdomen. This may repre sent mild adynamic ileus. Recommendations: Short-term repeat exam following bowel evacuation might be considered for ongoing ev aluation.
[2023-09-17] MEDS: albumin 25 G/100 ML BAG 60 G IV ×2 (08:47→16:38)
[2023-09-17] MEDS: sucralfate 1 gm/10 mL Oral Liq UDC NG-TUBE (08:47)
[2023-09-17] MEDS: pantoprazole 40 mg SDV IVP ×2 (08:47→20:05)
[2023-09-17] MEDS: calcium gluconate 0.9% NaCL 1 GM/50 ML PREMIX IV (08:47)
[2023-09-17 08:49] LABS: ABG PH Result 7.36 (7.35-7.45); Alveolar-Arterial Oxygen Gradi 30.6 mmHg (5-10); Arterial Blood Gas Hematocrit 36.5 % (42-52); Base Excess ABG -1.9 mmol/L (-2.0-2.0); Blood Gas Allen Test Pos; Blood Gas Operator Identificat CAK; Blood Gas Sample Site Brachial, right; Blood Gas Sample Type Arterial; Carboxyhemoglobin 0.4 %THgb (0.4-20.1); HCO3 ABG 23.4 mmol/L (22-26); HGB O2 Sat 91.9 % (95-100); Ionized Calcium Level - ABG 1.2 mmol/L (1.1-1.4); Methemoglobin 0.3 % (0.4-1.5); Oxygen Device BIPAP; Oxygen Saturation ABG 92.5; PO2 ABG 71.8 mmHg (80.0-100.0); PO2 FiO2 Ratio Arterial Blood 0; Potassium Level - ABG 4.7 mmol/L (3.5-5.0); Total Hemoglobin 11.9 g/dL (14-18)
[2023-09-17] MEDS: insulin regular-human 10 UNIT in SYRINGE 1 EACH IVP (09:06)
[2023-09-17] MEDS: dextrose 10% 250 ML 1000 ML IV (09:07)
[2023-09-17] MEDS: piperacillin-tazobactam 3.375 GM in sodium chloride 0.9% (plus) 50 ML IV ×2 (09:44→20:04)
[2023-09-17] MEDS: sodium bicarbonate 8.4% 1 mEq/mL 50mL Syr 100 MEQ IVP (09:45)
[2023-09-17] MEDS: hydrocortisone 100 mg/2 mL SDV IVP (09:45)
--- NOTE | 2023-09-17 10:02 | ECG_ITS ---
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 Measurements Intervals [place] Rate: 83 P: 0 TN: 0 QRS: -28 QRSD: 113 T: 68 QT: 306 QTc: 360 Interpretive Statements ATRIAL FIBRILLATION WITH ABERRANT CONDUCTION OR VENTRICULAR PREMATURE COMPLEXES LOW QRS VOLTAGE IN EXTREMITY LEADS [QRS DEFLECTION < 0.5 mV IN LIMB LEADS] PATTERN CONSISTENT WITH PULMONARY DISEASE INFERIOR MYOCARDIAL INFARCTION , PROBABLY OLD [40+ ms Q WAVE AND/OR ST/T ABNORMALITY IN II/aVF] Compared to ECG 09/17/2023 08:33:16 Ventricular premature complex(es) now present Aberrant conduction of supraventricular beat(s) now present Myocardial infarct finding now present Electronically Signed On 09-17-2023 17:00:30 CDT by Gadiel Kinsey M.D. [id number]
[2023-09-17] MEDS: heparin drip 25,000 UNIT/500 ML PREMIX 39.6599999999999966 UNIT IV (10:37)
--- NOTE | 2023-09-17 11:33 | PC.SOCIAL ---
IMM Updated Updated pt's family on IMM. No questions voiced. Provided a copy. Initialed, dated, & timed copy in chart.
[2023-09-17] MEDS: norepinephrine 4 MG/250 ML BAG 52.5 MG IV (12:20)
--- NOTE | 2023-09-17 12:36 | P.CONIM_ITS ---
Providers/Reason For Consult 2 Consulting Physician/Specialty*: Medicine Reason for Consult*: Leukocytosis and abdominal pain, evaluate for cholecystitis Requesting Physician: Moisés Landon MD Attending Physician: Moisés Landon MD Primary Care Provider: Lovely Ivey MD History of Present Illness History of Present Illness Artie Quiles is a 68 year old male with severe Parkinsonism and dysautonomia admitted to ICU with AMS in septic shock found to have pneumonia, with ESRD on HD and chronic mesenteric ischemia. Broad workup for severe leukocytosis largely unrevealing, however recent imaging concerning for gangrenous cholecystitis vs acute on chronic mesenteric ischemia. Family hoping to avoid need for surgical interventions. Review of Systems 2 General: Reports: 10 or more systems reviewed and unremarkable except in HPI and below, ROS unobtainable due to medical condition and ROS unobtainable due to mental status GI: Reports: abdominal pain and other (feculent NGT output) Neuro: Reports: involuntary movements Medications/Allergies Home Medications Medication Instructions Recorded Confirmed Last Taken Type aspirin 81 mg tablet,delayed 81 mg PO DAILY 11/27/20 08/25/23 08/25/23 History release (Adult Low Dose Aspirin) atorvastatin 80 mg tablet 40 mg PO QPM 11/27/20 08/25/23 08/24/23 History docusate sodium 100 mg capsule 100 mg PO BID PRN Constipation 11/27/20 08/25/23 Unknown History nitroglycerin 0.4 mg sublingual 0.4 mg sublingual Q5M PRN Chest 11/27/20 08/25/23 Unknown History tablet Pain polyethylene glycol 3350 17 17 g PO DAILY PRN Constipation 11/27/20 08/25/23 Unknown History gram/dose oral powder pregabalin 150 mg capsule 150 mg PO BID 11/27/20 08/25/23 08/25/23 History inhalational spacing device (Allan #1 ea 05/20/21 08/25/23 Unknown Rx Aerosol Mobile Enhancer spacer) ipratropium bromide 0.02 % 2.5 ml inhalation Q4H PRN 06/17/22 08/25/23 Unknown History solution for inhalation Shortness Of Breath Or Wheezing nebulizer accessories #1 ea 06/18/22 08/25/23 Unknown Rx albuterol sulfate 2.5 mg/3 mL 2.5 mg inhalation Q4H PRN 08/21/22 08/25/23 Unknown History (0.083 %) solution for nebulization Shortness Of Breath Or Wheezing ascorbic acid (vitamin C) 500 mg 1,000 mg PO DAILY 08/21/22 08/25/23 08/25/23 History tablet (Vitamin C) fluticasone propionate 50 1 spray intranasal DAILY 08/21/22 08/25/23 08/25/23 History mcg/actuation nasal spray,suspension lidocaine 5 % topical ointment 1 applic topical DAILY PRN Pain 08/21/22 08/25/23 Unknown History naloxone 4 mg/actuation nasal spray 4 mg intranasal Q3M PRN Opioid 08/21/22 08/25/23 Unknown History Overdose tamsulosin 0.4 mg capsule 0.8 mg PO QPM 08/21/22 08/25/23 08/24/23 History vit C 250 mg-vit E 90 mg-zinc 40 1 cap PO BID 08/21/22 08/25/23 08/25/23 History mg-copper 1 th-wdrdni-ltvbst capsule (PreserVision AREDS-2) zinc gluconate 50 mg tablet 50 mg PO DAILY 08/21/22 08/25/23 08/25/23 History diltiazem HCl 240 mg 240 mg PO DAILY #60 tabs 08/27/22 08/25/23 08/25/23 Rx tablet,extended release 24 hr (Cardizem LA) budesonide-formoterol HFA 160 2 puff inhalation BID #10.2 grams 05/11/23 08/25/23 08/25/23 Rx mcg-4.5 mcg/actuation aerosol inhaler (Symbicort) calcium acetate 667 mg tablet 1,334 mg PO TID 05/11/23 08/25/23 08/25/23 History carboxymethylcellulose sodium 0.5 1 drp ophthalmic (eye) QID PRN Dry 05/11/23 08/25/23 Unknown History % eye drops (Refresh Tears) Eye(S) ipratropium 0.5 mg-albuterol 3 mg 3 ml inhalation Q4H PRN wheezing 05/11/23 08/25/23 Unknown Rx (2.5 mg base)/3 mL nebulization #90 mL soln loratadine 10 mg tablet (Allergy 10 mg PO DAILY 05/11/23 08/25/2324 History Relief (loratadine)) lorazepam 0.5 mg tablet See Rx Instructions .Route .COMPLEX 05/11/23 08/25/23 Unknown History primidone 50 mg tablet 50 mg PO BID 05/11/23 08/25/23 08/25/23 History ropinirole 1 mg tablet 1 mg PO BEDTIME 05/11/23 08/25/23 08/24/23 History tiotropium bromide 18 mcg capsule 1 cap inhalation DAILY #60 05/11/23 08/25/23 08/25/23 Rx with inhalation device (Spiriva inhalations with HandiHaler) carbamide peroxide 6.5 % ear drops 4 drp otic (ear) Q30D PRN Ear Wax 05/18/23 08/25/23 Unknown History diphenhydramine 25 2 tab PO BEDTIME 05/18/23 08/25/23 08/24/23 History mg-acetaminophen 500 mg tablet (Tylenol PM Extra Strength) fluoxetine 20 mg capsule 60 mg PO QAM 05/18/23 08/25/23 08/25/23 History guaifenesin 400 mg tablet 400 mg PO Q4H PRN Congestion 05/18/23 08/25/23 Unknown History melatonin 5 mg tablet 10 mg PO BEDTIME 05/18/23 08/25/23 08/24/23 History nystatin 100,000 unit/mL oral 10 ml PO TID PRN unknown 05/18/23 08/25/23 Unknown History suspension omeprazole 40 mg capsule,delayed 40 mg PO QAM 05/18/23 08/25/23 08/25/23 History release polyvinyl alcohol 1.4 % eye drops 2 drp ophthalmic (eye) BID PRN Dry 05/18/23 08/25/23 Unknown History (Artificial Tears (polyvinyl Eyes alcohol)) vitamin B complex-vitamin C-folic 1 tab PO DAILY 05/18/23 08/25/23 08/25/23 History acid 0.8 mg tablet (Renal-Kerrie) furosemide 80 mg tablet (Lasix) 40 mg (1/2 x 80 mg) PO BID 30 days 05/20/23 08/25/23 08/25/23 Rx #30 tabs albuterol sulfate 90 mcg/actuation 1 inh inhalation QID PRN shortness 06/08/23 08/25/23 Unknown Rx aerosol inhaler (Ventolin HFA) of breath or wheezing #8.5 grams sodium chloride 3 % for 4 ml inhalation BID PRN congestion 07/15/23 08/25/23 08/24/23 Rx nebulization #240 mL acetaminophen 325 mg tablet 325 - 650 mg PO QID PRN Pain 08/25/23 08/25/23 Unknown History amiodarone 200 mg tablet 200 mg PO DAILY 08/25/23 08/25/23 08/25/23 History carbidopa 10 mg-levodopa 100 mg 0.5 tab PO BID 08/25/23 08/25/23 08/25/23 History tablet lisinopril 10 mg tablet 10 mg PO DAILY 08/25/23 08/25/23 08/25/23 History oxycodone 10 mg tablet 10 mg PO Q6H PRN Pain 08/25/23 08/25/23 Unknown History Allergies Allergy/AdvReac Type Severity Reaction Status Date / Time Iodinated Contrast Media Allergy Severe anaphylaxis Verified 08/25/23 13:53 Current Medications Generic Name Dose Route Start Last Admin Trade Name Freq PRN Reason Stop Dose Admin Acetaminophen 325 - 650 mg 08/25/23 15:55 09/10/23 20:40 Acetaminophen 325 Mg Tablet PO 325 mg QID PRN Administration Pain Al Hydrox/Mg Hydrox/Simethicone 30 ml 09/04/23 09:18 09/06/23 11:12 [id number]-Hbqvtqysc-Roberto 30 Ml Udc PO 30 ml Q4H PRN Administration INDIGESTION Amiodarone HCl 400 mg 09/12/23 09:00 09/17/23 08:31 Amiodarone 200 Mg Tablet PO 400 mg BID SHANTE Administration Artificial Tears 1 drop 08/25/23 16:17 09/02/23 21:14 Artificial Tears Op Soln 15 Ml Btl OPHTHALMIC 1 drop QID PRN Administration Dry Eye(S) Aspirin 81 mg 08/26/23 09:00 09/17/23 08:31 Aspirin 81 Mg Ec Tablet PO 81 mg DAILY SHANTE Administration Atorvastatin Calcium 40 mg 08/25/23 21:00 09/16/23 17:24 Atorvastatin 40 Mg Tablet PO 40 mg QPM SHANTE Administration Calcium Acetate 1,334 mg 08/25/23 15:55 09/17/23 08:31 Calcium Acetate 667 Mg Capsule PO 1,334 mg TID SHANTE Administration Carbidopa/Levodopa 1 each 09/14/23 21:00 09/17/23 08:31 Carbidopa-Levodopa 25-100mg Tablet PO 1 each TID SHANTE Administration Diltiazem HCl 60 mg 09/14/23 08:30 09/17/23 08:31 Diltiazem 60 Mg Tablet PO 60 mg Q6H SHANTE Administration Fludrocortisone Acetate 0.1 mg 09/10/23 09:00 09/17/23 08:31 Fludrocortisone 0.1 Mg Tablet PO 0.1 mg DAILY SHANTE Administration Fluoxetine HCl 60 mg 08/26/23 06:00 09/17/23 05:29 Fluoxetine 20 Mg Capsule PO 60 mg QAM SHANTE Administration norepinephrine 4 mg in 250 mls @ 0 mls/hr 09/15/23 10:45 09/17/23 08:09 Levophed IV 16 mcg/min .Q0M SHANTE 60 mls/hr Administration Protocol Per Protocol Amiodarone HCl/Dextrose 360 mg in 200 mls @ 0 mls/hr 09/15/23 13:30 09/17/23 10:00 Nexterone IV 0 mg/min .Q0M SHANTE 0 mls/hr Titration Protocol Per Protocol Vasopressin 40 unit in 100 mls @ 0 mls/hr 09/17/23 03:30 09/17/23 07:12 Vasostrict IV 0.02 unit/min .Q0M SHANTE 3 mls/hr Titration Protocol Per Protocol Piperacillin Sod/Tazobactam 50 mls @ 12.5 mls/hr 09/17/23 09:00 09/17/23 09:44 Sod 3.375 gm/ Sodium Chloride IV 12.5 mls/hr Q12H SHANTE Administration Protocol Albumin Human 25 g in 100 mls @ 60 mls/hr 09/17/23 08:30 09/17/23 08:47 Albumin IV 60 mls/hr Q8H SHANTE Administration Heparin Sodium/Sodium Chloride 25,000 unit in 500 mls @ 0 mls/hr 09/17/23 08:30 09/17/23 10:37 Heparin Drip IV 14 unit/kg/hr .Q0M SHANTE 39.66 mls/hr Administration Protocol Per Protocol Midodrine 10 mg 09/08/23 12:30 09/17/23 05:30 Midodrine 5 Mg Tablet PO 10 mg Q6H SHANTE Administration Morphine Sulfate 1 mg 09/08/23 12:24 09/16/23 14:43 Morphine 4 Mg/Ml Sdv 1 Ml IVP 1 mg Q4H PRN Administration SEVERE PAIN Ondansetron HCl 4 mg 08/25/23 15:55 09/16/23 13:30 Ondansetron 2 Mg/Ml Sdv 2 Ml IVP 4 mg Q8H PRN Administration vomiting, or N/V if npo Pantoprazole Sodium 40 mg 09/17/23 08:30 09/17/23 08:47 Pantoprazole 40 Mg Sdv IVP 40 mg Q12H SHANTE Administration Pregabalin 100 mg 09/14/23 18:00 09/17/23 08:30 Pregabalin 100 Mg Capsule PO 100 mg BID SHANTE Administration Pyridostigmine [place] 30 mg 09/15/23 12:00 09/17/23 05:29 Pyridostigmine 60 Mg Tablet PO 30 mg Q6H SHANTE Administration Sevelamer Carbonate 800 mg 09/04/23 15:00 09/17/23 08:31 Sevelamer 800 Mg Tablet PO 800 mg TID SHANTE Administration Sucralfate 1 gm 09/17/23 08:30 09/17/23 08:47 Sucralfate 1 Gm/10 Ml Oral Liq Udc NG-TUBE 1 gm Q6H SHANTE Administration Thiamine HCl 100 mg 09/15/23 09:00 09/17/23 08:31 Thiamine 100 Mg/Ml Sdv IVP 100 mg DAILY SHANTE Administration PFSH Acute 2 PFSH: Medical History Septic shock Pneumonia Acute encephalopathy Volume overload Acute exacerbation of chronic obstructive airways disease Acute respiratory failure with hypoxemia End-stage renal disease (ESRD) ESRD (end stage renal disease) GI bleed Acute respiratory failure with hypoxia Hyperkalemia NSTEMI (non-ST elevated myocardial infarction) Rib fractures Kidney lesion Acute anemia Abnormal CT scan, kidney Legally blind NATHALY (obstructive sleep apnea) Nightly CPAP Hyperkalemia Sepsis EDWIN (acute kidney injury) Chest pain Atrial fibrillation CHF (congestive heart failure) COPD (chronic obstructive pulmonary disease) 2L Smoker Hyperlipidemia Hypertension History of type 2 diabetes mellitus Coronary artery disease UTI (urinary tract infection) Pyelonephritis of left kidney Surgical History History of heart artery stent Family History Mother Skin cancer (melanoma) Heart attack Social History Smoking and tobacco/nicotine status: former use of tobacco/nicotine Quit status (tobacco/nicotine): has quit using Year quit tobacco: August 2020 [id number] Second hand smoke exposure: Yes Alcohol intake: never Substance/Drug Use: never Caregiver/support person: Yes Lives independently: Yes Household members: significant other Marital status: service: Yes Current occupational status: retired and disabled Pets and animals: Yes Do you think of yourself as: Straight/Heterosexual Current gender identity: Male Vitals/I&O/Wt Last Vital Signs Temp 97.0 F L 09/17/23 04:15 Pulse 88 09/17/23 12:00 Resp 20 H 09/17/23 10:15 BP 115/55 09/17/23 10:15 Pulse Ox 92 09/17/23 12:00 O2 Del Method BiPAP 09/17/23 10:00 O2 Flow Rate 40 09/15/23 21:00 FiO2 50 09/17/23 12:00 09/16/23 09/17/23 09/17/23 22:59 06:59 14:59 Intake Total 688.816 / 1178.816 408.550 / 1587.366 323.735 / 323.735 Balance 688.816 / 1178.816 408.550 / 1587.366 323.735 / 323.735 Weight last 48 hrs Weight 312 lb 4 oz Weight 311 lb 3 oz Weight 309 lb 8.464 oz Physical Exam 2 Const: EXAM LIMITATIONS: altered mental status NUTRITIONAL APPEARANCE: o bese OTHER: Wincing in response to pain but otherwise unresponsive HENMT: COMMON NORMALS: normocephalic, atraumatic and Normal external nose present (Bipap present, NGT present) HEAD & SCALP: normal to inspection, normocephalic and atraumatic NOSE: Normal external nose present (Bipap present, NGT present) Eye: COMMON NORMALS: EOMs intact bilaterally GENERAL EYE: appearance normal, both eyes and all related structures ALIGNMENT: Yes alignment normal Neck/C-Spine: GENERAL: Yes normal visual inspection and Yes trachea midline Chest: COMMONS NORMALS: normal inspection of the chest and normal palpation of entire chest wall Resp: EFFORT & INSPECTION: Yes symmetric chest movement OTHER: On BIPAP Cardio: COMMON NORMALS: regular rate and regular rhythm RATE: regular rate RHYTHM: regular rhythm PERIPHERAL PULSES: radial pulses present GI: COMMON NORMALS: Soft to palpation INSPECTION: Yes abdominal distension and Yes central obesity PALPATION: Yes Soft to palpation, Yes Tenderness to palpation present (GI) (diffusely), No Guarding due to palpation present (GI), No Rigid due to palpation and No Rebound tenderness present RECTAL EXAM: Yes deferred Skin: COMMON NORMALS: no rashes or lesions noted GENERAL SKIN EXAM: no rashes or lesions noted Data 09/17/23 03:48 09/17/23 05:41 Micro: Recent cultures negative CT Abd/Pel: I personally reviewed and interpreted this imaging study as follows: My impression: Gallbladder wall thickening with peritoneal fluid diffuse in RUQ, which can be seen in either mesenteric ischemia or gallbladder disease. Diffusely dilated bowel with transit of contrast to distal ileum suggests ileus. Calcified SMA and celiac axis raise concern for mesenteric ischemia. Radiologist's impression: 1. Loculated ascites and mesenteric/omental edema in the right abdomen, new since 09/09/2023. This finding is nonspecific and may be related to inflammation of the gallbladder or bowel, bowel ischemia, omental infarction, or an otherwise in occult inflammatory process. Given rapid progression of this finding, lymphangitic carcinomatosis is less likely. 2. Mild diffuse intermittent small bowel dilation suggests ileus. No pneumatosis or mural thickening to confirm ischemia or inflammation. There is contrast in the terminal ileum, excluding high-grade small bowel obstruction. 3. Calcific plaque with possible high-grade stenosis of the celiac and superior mesenteric artery origins. Consider follow-up CTA for better assessment of these vessels. 4. Distended gallbladder containing sludge. There is pericholecystic edema adjacent to the fundus. Acute cholecystitis is a possibility. Consider further evaluation with ultrasound. 5. Ill-defined coarse reticular opacity in the lung bases bilaterally, decreased since 09/09/2023, likely some combination of atelectasis and infection. 6. Subcentimeter liver nodules, too small to fully characterize. In a low-risk patient, this is most likely to be benign and no further follow-up is recommended. In a high-risk patient, follow-up MRI in 3-6 months is recommended (or earlier if warranted by the patient's specific clinical circumstances). (Reference: Harjinder) 7. Incidental findings above. US: I personally reviewed and interpreted this imaging study as follows: My impression: Sludge present. Gallbladder wall thickening without emphesematous changes could be due to cholecystitis or benign in setting of hepatic and renal disease Radiologist's impression: 1. Mildly hydropic gallbladder with sludge. No stones. No pericholecystic fluid. There is mild nodular gallbladder wall thickening. Early changes of the gangrenous cholecystitis should be considered. Other etiologies of gallbladder wall thickening are congestive heart failure, cirrhosis, ascites and hepatitis. 2. No common bile duct dilatation. 3. Mild atrophy RIGHT kidney. 4. No flow is identified in the SMA. Heavily calcified SMA was noted on the CT recently performed. Cannot exclude GI tract ischemia. 5. Hepatic steatosis. 6. Collapsed IVC. A&P Assessment and plan (1) Elevated WBC count: Likely due to acute on chronic mesenteric ischemia in setting of critical ICU illness and dysautonomia requiring multiple pressor support. Diffuse rather than localized RUQ pain support mesenteric ischemia over biliary disease. Imaging findings of gallbladder likely benign edema in setting of critical illness, volume overload, hepatic dysfunction, and ESRD. Family understands that patient is not a surgical candidate, and is not inclined to pursue transfer for IR percutaneous cholecystostomy even if the gallbladder were ultimately the source of leukocytosis and abdominal pain. Family appears to be considering palliative/comfort care. No further role for General Surgery involvement, I remain available to reassess as needed. Qualifiers: Leukocytosis type: unspecified Qualified Code(s): D72.829 - Elevated white blood cell count, unspecified Coding Level of Care Code Acute Code for Chg Fwd Diagnoses Leukocytosis, unspecified type D72.829 Leukocytosis type: unspecified
[2023-09-17] MEDS: sodium chloride 0.9% 1,000 ML 125 ML IV ×2 (13:11→18:50)
--- NOTE | 2023-09-17 13:38 | ECG_ITS ---
[facility] Test Date: 2023-09-17 Pat Name: Artie Quiles Department: Room: ICU11 Gender: Male Coat Checker: : 1955 Requested By: Moisés Landon Order Number: [id number] José Antonio MD: Gadiel Kinsey M.D. Measurements Intervals [place] Rate: 90 P: 0 SC: 0 QRS: 163 QRSD: 99 T: 170 QT: 337 QTc: 414 Interpretive Statements ATRIAL FIBRILLATION WITH ABERRANT CONDUCTION OR VENTRICULAR PREMATURE COMPLEXES RIGHT AXIS DEVIATION [QRS AXIS > 100] LOW QRS VOLTAGE [QRS DEFLECTION < 0.5/1.0 mV IN LIMB/CHEST LEADS] PATTERN CONSISTENT WITH PULMONARY DISEASE Compared to ECG 09/17/2023 10:02:37 Right-axis deviation now present Myocardial infarct finding no longer present Electronically Signed On 09-17-2023 17:03:54 CDT by Gadiel Kinsey M.D. [email or web address]
--- NOTE | 2023-09-17 14:20 | PM.PN ---
Subjective Subjective: - Events overnight patient's pressor requirements increased, currently on 16 of Levophed 0.2 of vasopressin -Currently on 50% BiPAP ? Patient does awaken to sternal rub, but at times does not respond, does not follow commands, does not respond to his name -Given patient's aspiration event yesterday likely patient has aspiration pneumonia aspiration pneumonitis, placed back on vancomycin, Zosyn -Blood pressures remain soft, was started on fluid bolus with albumin, add on dopamine titrated off Levophed -On examination abdomen is soft, slightly distended, does have diffuse tenderness, review of CT scan and gallbladder ultrasound patient potentially could have acute cholecystitis, is on antibiotics placed as above ? 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 Reexamined continues to be on high doses of Levophed, vasopressin still on 50% BiPAP in the transistor tester nonresponsive at times, at times A-fib does go into the high 120s, on amiodarone drip ? Was given 100 mg of Solu-Medrol, albumin, further fluid boluses hold NG tube medications ? Spoke to general surgery, my concerns for cholecystitis, gangrenous cholecystitis, concern for mesenteric ischemia, currently patient is critically ill, too unstable for transfer, transfer would carry significant morbidity and mortality given his increased pressor requirements is respiratory failure, currently we had discussion not a good surgical candidate high risk of morbidity and mortality with surgical intervention, if his condition does improve can consider drain placement the gallbladder, however currently not stable for this procedure, and not stable for transfer for procedure ? Reexamined early in the afternoon, he does not awaken to sternal rub, at times he does agonal breathing, is in respiratory failure tachypnea, tachycardia, intercostal retractions remains on 50% BiPAP, reviewed ABG results, pupils equal round reactive to light does not withdraw from pain does not respond to sternal rub he is on 20 of Levophed, 0.2 of vasopressin, dopamine added -Spoke to pathologist about patient's case, persistent leukocytosis, currently acute worsening of leukocytosis is likely secondary to respiratory failure aspiration pneumonia, cholecystitis, mesenteric ischemia but is leukocytosis for the last few weeks is concerning, had a discussion, review of slides looks like patient has a high likelihood of having chronic myelogenous leukemia or acute neutrophilic leukemia, given his acute deterioration, could be concerns for accelerated phase or blast phase, I have already ordered a JAK2, leukemia lymphoma panel -Less likely patient has acute hypoxic respiratory failure from aspiration pneumonia aspiration pneumonitis, with developing multiorgan failure, with developed being septic shock for respiratory failure from pneumonia, from likely cholecystitis, concern for gangrenous cholecystitis, with now concern for mesenteric ischemia, currently on medical management, his DNR/DNI status is critical, prognosis is poor ? I had an extensive family meeting with patient's ex-, patient's brothers and sisters, nieces and nephews ? I had a long discussion about his hospitalization, initially came in with altered mental status confusions, initially thought to be infection related to pneumonia placed on antibiotics, completed 7 days of antibiotics had fluctuating mentation some of it was uremic encephalopathy, had problems with dialysis due to hypotension, requiring midodrine, pyridostigmine likely secondary to dysautonomia related to his Parkinson's disease, however for the last week or so he has had persistent poor mentation, has had extensive workup without any clear etiology I think is potentially ICU syndrome, advancement of his Parkinson's disease, potentially withdrawal from a some of his medications he was put back on Lyrica Sinemet, I think some of his persistent leukocytosis neutrophilic leukocytes cytosis over the last few weeks despite antibiotics, despite extensive and exhaustive testing, likely after discussion with pathology is chronic myelogenous leukemia 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, discussed options available, I think that he is entered the potentially accelerated or blast phase, given his deterioration in his high white blood cell count, discussed options available, currently he is not a candidate for interventions, or even bone marrow transplant given his acute critical condition, we can discuss options with availability options if his clinical condition certainly improves, however events of yesterday patient had feculent episode of nausea vomiting resulting in aspiration pneumonia aspiration pneumonitis with worsening respiratory failure now with septic shock likely secondary to aspiration pneumonia aspiration pneumonitis, potential acute on chronic mesenteric ischemia, given his CT scan findings, and acute cholecystitis, currently on 2 pressors maximized on 50% FiO2 minimally responsive, he is DNR/DNI, we discussed options including medical interventions, continue antibiotics, monitoring him he is DNR/DNI, we will do the best we can with medical interventions currently he is not stable enough for transfer to tertiary level center for consideration of surgical intervention, such as drain placed in the gallbladder, currently unstable for any surgery here for the gallbladder, further mesenteric ischemia the best I can do is place him on anticoagulant therapy for now he does have a history of GI bleeds, so that is risking a GI bleed give him antibiotics for his pneumonia his gallbladder function give him time the other options I discussed was easing his pain easing his suffering allow him to pass away comfortably, throughout his hospitalization Jose E has said at times he is ready to go, he is told me that he he has done, and in my opinion at times he is given up, however the family knows his past, they know his wishes, I am reaching out to the family to let them know that currently status is critical, prognosis is poor but I am here to let them know the risk and benefits all the options, and they come to inform decision about what the options are available, family unanimously said that they want above all Jose E to be comfortable they do not want him to suffer, they are agreeable to proceed with comfort care but not at this point they want to continue medical invention give him time and give time for all family members out of state to come and give their goodbyes, we discussed continue medical interventions he is a DNR/DNI continue antibiotic continue BiPAP continue pressor supports however his condition does deteriorate will let family know but above all do not want him to acutely suffer if that were to happen, agreeable to morphine, Ativan, Vitals/I&O/Wt Last Vital Signs Temp 97.0 F L 09/17/23 04:15 Pulse 81 09/17/23 13:00 Resp 22 H 09/17/23 13:00 BP 140/64 09/17/23 13:00 Pulse Ox 92 09/17/23 13:00 O2 Del Method BiPAP 09/17/23 10:00 O2 Flow Rate 40 09/15/23 21:00 FiO2 50 09/17/23 12:00 09/16/23 09/17/23 09/17/23 22:59 06:59 14:59 Intake Total 688.816 / 1178.816 408.550 / 1587.366 323.735 / 323.735 Balance 688.816 / 1178.816 408.550 / 1587.366 323.735 / 323.735 Weight last 48 hrs Weight 141.634 kg Weight 141.152 kg Weight 140.4 kg Physical Exam Const: COMMON NORMALS: no acute distress GENERAL APPEARANCE: lethargic ORIENTATION/CONSCIOUSNESS: Yes awake, Yes confused, Yes patient obtunded and Yes lethargic; not oriented to person, not oriented to place and not oriented to time Eye: COMMON NORMALS: Equal, round and reactive pupils present and EOMs intact bilaterally PUPIL: Yes Equal, round and reactive pupils present Resp: EFFORT & INSPECTION: Yes abnormal respiratory pattern, Yes tachypneic and Yes retractions AUSCULTATION: wheezes OTHER: Moderate respiratory distress intercostal retractions nasal flaring, suprasternal retractions, tachypnea Cardio: COMMON NORMALS: S1 normal heart sound present and S2 normal heart sound present RATE: tachycardic RHYTHM: abnormal rhythm HEART SOUNDS: S1 normal heart sound present and S2 normal heart sound present Extremity: COMMON NORMALS: no clubbing, cyanosis or edema and no pedal edema Neuro: SENSORIUM/ORIENTATION: No oriented to person, No oriented to place, No oriented to time and Yes lethargic Skin: NARRATIVE SKIN EXAM: DP PT pulses diminished bilaterally, capillary refill greater than 2 seconds, mild mottling bilateral extremity Sepsis: Is patient septic: Yes Focused sepsis exam performed: Yes Focused sepsis exam: DP PT vessels diminished bilaterally, cap refill greater than 2 seconds, mild mottling bilateral extremity Date exam was performed: 09/17/23 Time exam was performed: 08:35 Data 09/17/23 03:48 09/17/23 05:41 A&P Assessment and plan (1) Deep tissue injury: (2) Hypercapnic respiratory failure: Qualifiers: Chronicity: acute on chronic Qualified Code(s): J96.22 - Acute and chronic respiratory failure with hypercapnia (3) ESRD (end stage renal disease): (4) Hypertension: Qualifiers: Hypertension type: unspecified Qualified Code(s): I10 - Essential (primary) hypertension (5) Coronary artery disease: Qualifiers: Associated angina: without angina Coronary Disease-Associated Artery/Lesion type: unspecified vessel or lesion type [place] vs. transplanted heart: [place] heart Qualified Code(s): I25.10 - Atherosclerotic heart disease of [place] coronary artery without angina pectoris (6) Atrial fibrillation: Qualifiers: Atrial fibrillation type: unspecified Qualified Code(s): I48.91 - Unspecified atrial fibrillation (7) NATHALY (obstructive sleep apnea): (8) Fall: Qualifiers: Encounter type: subsequent encounter Qualified Code(s): W19.XXXD - Unspecified fall, subsequent encounter (9) Physical deconditioning: (10) Elevated WBC count: Qualifiers: Leukocytosis type: unspecified Qualified Code(s): D72.829 - Elevated white blood cell count, unspecified (11) Acute encephalopathy: (12) Septic shock: (13) Uremic encephalopathy: (14) Dysautonomia: (15) Post ICU syndrome: (16) Intensive care (ICU) myopathy: (17) Protein calorie malnutrition: (18) Leukemia, acute: (19) Acute cholecystitis: (20) Acute mesenteric ischemia: Plan Acute hypoxic respiratory failure -Secondary to aspiration pneumonia, aspiration pneumonitis ? Significant aspiration event yesterday feculent material from mouth ? Currently on 50% BiPAP, with evidence of respiratory distress ? Plan ? Patient is DNR/DNI ? Continue BiPAP therapy ?patient has a risk of aspiration on BiPAP, however no other option given his severe respiratory failure, ? Status post hydrocortisone ? Continue vancomycin, Zosyn, ? Monitor respiratory status closely, ?if patient has acute respiratory failure worsens or condition discharged to decompensate, will discuss with family and proceed with full comfort care, for now family wants to continue medical invention wait until family members from out of state arrive and see patient before proceeding with full comfort care Acute cholecystitis CT scan 4. Distended gallbladder containing sludge. There is pericholecystic edema adjacent to the fundus. Acute cholecystitis is a possibility. Consider further evaluation with ultrasound. MPRESSION: 1. Mildly hydropic gallbladder with sludge. No stones. No pericholecystic fluid. There is mild nodular gallbladder wall thickening. Early changes of the gangrenous cholecystitis should be considered. Other etiologies of gallbladder wall thickening are congestive heart failure, cirrhosis, ascites and hepatitis. 2. No common bile duct dilatation. 3. Mild atrophy RIGHT kidney. 4. No flow is identified in the SMA. Heavily calcified SMA was noted on the CT recently performed. Cannot exclude GI tract ischemia. 5. Hepatic steatosis. 6. Collapsed IVC. ? General surgery consulted ? IV antibiotics ? N.p.o., ? If patient's condition does improve can consider gallbladder drain Acute on chronic mesenteric ischemia 1. Loculated ascites and mesenteric/omental edema in the right abdomen, new since 09/09/2023. This finding is nonspecific and may be related to inflammation of the gallbladder or bowel, bowel ischemia, omental infarction, or an otherwise in occult inflammatory process. Given rapid progression of this finding, lymphangitic carcinomatosis is less likely. 2. Mild diffuse intermittent small bowel dilation suggests ileus. No pneumatosis or mural thickening to confirm ischemia or inflammation. There is contrast in the terminal ileum, excluding high-grade small bowel obstruction. 3. Calcific plaque with possible high-grade stenosis of the celiac and superior mesenteric artery origins. Consider follow-up CTA for better assessment of these vessels. 4. Distended gallbladder containing sludge. There is pericholecystic edema adjacent to the fundus. Acute cholecystitis is a possibility. Consider further evaluation with ultrasound. 5. Ill-defined coarse reticular opacity in the lung bases bilaterally, decreased since 09/09/2023, likely some combination of atelectasis and infection. ? With patient's complaints of diffuse abdominal pain, concerns for acute on chronic mesenteric ischemia given elevated lactic acid, diffuse abdominal tenderness, She does have a history of GI bleeds ? Will start on heparin drip Serial abdominal exams Septic shock -Multifactorial, from aspiration pneumonia, aspiration pneumonitis acute cholecystitis, acute on chronic mesenteric ischemia ? On Levophed at 20 ? On vasopressin 0.2, ? Started dopamine drip, ?fluid boluses ? Albumin therapy End-stage renal disease, on dialysis cannot dialyze today given severe septic shock can consider CRRT Acute encephalopathy ? Likely multifactorial currently secondary to hypoxia, septic shock, prolonged hospitalization, respiratory failure ? Chronic secondary to Parkinson's disease, withdrawal from Lyrica, Sinemet, Parkinsonian disorder dysautonomia ? Midodrine, pyridostigmine on hold given mesenteric ischemia as above Atrial fibrillation with rapid ventricular response Is on amiodarone drip Uremic encephalopathy Persistent leukocytosis -currently elevation likely secondary to as above, -chronic leukocytosis has had extensive workup, blood cultures negative, CSF cultures negative, fungal studies negative, viral studies negative ? 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 Order JAK2, leukemia panel, next ?currently not stable enough intervention - Events overnight patient's pressor requirements increased, currently on 16 of Levophed 0.2 of vasopressin -Currently on 50% BiPAP ? Patient does awaken to sternal rub, but at times does not respond, does not follow commands, does not respond to his name -Given patient's aspiration event yesterday likely patient has aspiration pneumonia aspiration pneumonitis, placed back on vancomycin, Zosyn -Blood pressures remain soft, was started on fluid bolus with albumin, add on dopamine titrated off Levophed -On examination abdomen is soft, slightly distended, does have diffuse tenderness, review of CT scan and gallbladder ultrasound patient potentially could have acute cholecystitis, is on antibiotics placed as above ? 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 Reexamined continues to be on high doses of Levophed, vasopressin still on 50% BiPAP in the transistor tester nonresponsive at times, at times A-fib does go into the high 120s, on amiodarone drip ? Was given 100 mg of Solu-Medrol, albumin, further fluid boluses hold NG tube medications ? Spoke to general surgery, my concerns for cholecystitis, gangrenous cholecystitis, concern for mesenteric ischemia, currently patient is critically ill, too unstable for transfer, transfer would carry significant morbidity and mortality given his increased pressor requirements is respiratory failure, currently we had discussion not a good surgical candidate high risk of morbidity and mortality with surgical intervention, if his condition does improve can consider drain placement the gallbladder, however currently not stable for this procedure, and not stable for transfer for procedure ? Reexamined early in the afternoon, he does not awaken to sternal rub, at times he does agonal breathing, is in respiratory failure tachypnea, tachycardia, intercostal retractions remains on 50% BiPAP, reviewed ABG results, pupils equal round reactive to light does not withdraw from pain does not respond to sternal rub he is on 20 of Levophed, 0.2 of vasopressin, dopamine added -Spoke to pathologist about patient's case, persistent leukocytosis, currently acute worsening of leukocytosis is likely secondary to respiratory failure aspiration pneumonia, cholecystitis, mesenteric ischemia but is leukocytosis for the last few weeks is concerning, had a discussion, review of slides looks like patient has a high likelihood of having chronic myelogenous leukemia or acute neutrophilic leukemia, given his acute deterioration, could be concerns for accelerated phase or blast phase, I have already ordered a JAK2, leukemia lymphoma panel -Less likely patient has acute hypoxic respiratory failure from aspiration pneumonia aspiration pneumonitis, with developing multiorgan failure, with developed being septic shock for respiratory failure from pneumonia, from likely cholecystitis, concern for gangrenous cholecystitis, with now concern for mesenteric ischemia, currently on medical management, his DNR/DNI status is critical, prognosis is poor ? I had an extensive family meeting with patient's ex-, patient's brothers and sisters, nieces and nephews ? I had a long discussion about his hospitalization, initially came in with altered mental status confusions, initially thought to be infection related to pneumonia placed on antibiotics, completed 7 days of antibiotics had fluctuating mentation some of it was uremic encephalopathy, had problems with dialysis due to hypotension, requiring midodrine, pyridostigmine likely secondary to dysautonomia related to his Parkinson's disease, however for the last week or so he has had persistent poor mentation, has had extensive workup without any clear etiology I think is potentially ICU syndrome, advancement of his Parkinson's disease, potentially withdrawal from a some of his medications he was put back on Lyrica Sinemet, I think some of his persistent leukocytosis neutrophilic leukocytes cytosis over the last few weeks despite antibiotics, despite extensive and exhaustive testing, likely after discussion with pathology is chronic myelogenous leukemia 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, discussed options available, I think that he is entered the potentially accelerated or blast phase, given his deterioration in his high white blood cell count, discussed options available, currently he is not a candidate for interventions, or even bone marrow transplant given his acute critical condition, we can discuss options with availability options if his clinical condition certainly improves, however events of yesterday patient had feculent episode of nausea vomiting resulting in aspiration pneumonia aspiration pneumonitis with worsening respiratory failure now with septic shock likely secondary to aspiration pneumonia aspiration pneumonitis, potential acute on chronic mesenteric ischemia, given his CT scan findings, and acute cholecystitis, currently on 2 pressors maximized on 50% FiO2 minimally responsive, he is DNR/DNI, we discussed options including medical interventions, continue antibiotics, monitoring him he is DNR/DNI, we will do the best we can with medical interventions currently he is not stable enough for transfer to tertiary level center for consideration of surgical intervention, such as drain placed in the gallbladder, currently unstable for any surgery here for the gallbladder, further mesenteric ischemia the best I can do is place him on anticoagulant therapy for now he does have a history of GI bleeds, so that is risking a GI bleed give him antibiotics for his pneumonia his gallbladder function give him time the other options I discussed was easing his pain easing his suffering allow him to pass away comfortably, throughout his hospitalization Jose E has said at times he is ready to go, he is told me that he he has done, and in my opinion at times he is given up, however the family knows his past, they know his wishes, I am reaching out to the family to let them know that currently status is critical, prognosis is poor but I am here to let them know the risk and benefits all the options, and they come to inform decision about what the options are available, family unanimously said that they want above all Jose E to be comfortable they do not want him to suffer, they are agreeable to proceed with comfort care but not at this point they want to continue medical invention give him time and give time for all family members out of state to come and give their goodbyes, we discussed continue medical interventions he is a DNR/DNI continue antibiotic continue BiPAP continue pressor supports however his condition does deteriorate will let family know but above all do not want him to acutely suffer if that were to happen, agreeable to morphine, Ativan, Attestations Medical Necessity Statement*: Patient requires hospitalization for septic shock, respiratory failure aspiration pneumonia aspiration pneumonitis, cholecystitis, mesenteric ischemia, encephalopathy, DNR/DNI, acute respiratory failure, septic shock prognosis poor status critical Coding Level of Care Code Critical Care >/= 30 minutes Critical care time (in minutes): 55 The high probability of a clinically significant, sudden or life threatening deterioration, as referenced in this documentation, required my full and direct attention, intervention and personal management. The critical care time shown is in addition to time spent performing any reported separately billable procedures and includes the following: [x] Data and vital sign review and interpretation [x] Patient assessment, examination and intervention [x] Medication orders and management [x] Patient/Family updates as able [x] Care Coordination and Documentation. Diagnoses Deep tissue injury T14.8XXA Acute on chronic respiratory failure with hypercapnia J96.22 Chronicity: acute on chronic ESRD (end stage renal disease) N18.6 Hypertension, unspecified type I10 Hypertension type: unspecified Coronary artery disease involving [place] heart without angina pectoris, unspecified vessel or lesion type I25.10 Associated angina: without angina Coronary Disease-Associated Artery/Lesion type: unspecified vessel or lesion type [place] vs. 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
--- NOTE | 2023-09-17 15:19 | PC.OT ---
OT treatment attempted with nursing asking this OT to hold patient; will attempt at later time.
[2023-09-17] MEDS: norepinephrine 4 MG/250 ML BAG 37.5 MG IV (16:39)
[2023-09-17 16:43] LABS: Platelet Count 362 10^3/cmm (157-399)
[2023-09-17 17:07] LABS: Lactic Sepsis W/Reflex 1.3 mmol/L (0.5-2.2)
[2023-09-17 17:10] LABS: Alanine Aminotransferase 30 U/L (0-41); Albumin Level 2.9 g/dL (3.5-5.2); Alkaline Phosphatase 158 U/L (40-130); Aspartate Amino Transferase 211 U/L (0-40); Creatine Phosphokinase 242 U/L (39-308); Globulin 3.3 g/dL (1.3-4.6); Lipase 41 U/L (13-60); Total Bilirubin 0.6 mg/dL (0.15-1.2); Total Protein 6.2 g/dL (6.6-8.7)
[2023-09-17 17:11] LABS: Gamma Glutamyl Transferase 53 U/L (8-61)
[2023-09-17 17:17] LABS: Troponin(5th) Baseline 134 ng/L (0-15)
[2023-09-17 17:22] LABS: Partial Thromboplastin Time 155.8 SECONDS (23.9-36.7)
[2023-09-17 17:26] LABS: C Reactive Protein 362.5 mg/L (0.0-4.9)
[2023-09-17 19:20] LABS: Troponin 5 2HR Delta -1.1 ABS# (0-10)
[2023-09-17 19:23] LABS: Troponin 5 2HR 132.9 ng/L (0-15)
--- NOTE | 2023-09-17 19:52 | PC.NURSE ---
Per dayshift nurse and Doctor's report. NG tube should not be used for PO medications at this time.
--- NOTE | 2023-09-17 19:59 | PC.NURSE ---
At the beginning of this nurse's shift the vasopressin drip was stopped. MAR was updated to reflect this.
[2023-09-17] MEDS: vancomycin 1,000 MG in sodium chloride 0.9% 250 ML 250 MG IV (20:02)
--- NOTE | 2023-09-17 20:53 | PC.NURSE ---
[facility] was called. They stated that as soon as family goes to comfort care to call them. Sherif Michel was the person this nurse talked to from [facility] and the referal number is [phone]
[2023-09-17 22:02] LABS: Partial Thromboplastin Time 59.3 SECONDS (23.9-36.7)
[2023-09-17 22:08] LABS: Troponin 5 6HR Delta -4.2 ng/L (0-12)
[2023-09-17 22:09] LABS: Troponin 5 6HR 129.8 ng/L (0-15)
[2023-09-17] MEDS: morphine 4 mg/mL SDV 1 mL 1 MG IVP (22:26)
[2023-09-18] VITALS (15 sets, daily range): BP systolic 97–121; BP diastolic 41–82; PULSE 69–92; RESP 17–29; TEMP 36.1–36.3; O2SAT 88–97
[2023-09-18] MEDS: albumin 25 G/100 ML BAG 60 G IV ×2 (00:38→08:10)
[2023-09-18] MEDS: norepinephrine 4 MG/250 ML BAG 15 MG IV (00:38)
[2023-09-18] MEDS: LORazepam 2 mg/mL INJ 10 mL MDV 1 MG IVP (02:04)
[2023-09-18] MEDS: dexmedeTOMIDine 0.9 % NaCL 400 MCG/100 ML PREMIX 0.349999999999999978 MCG IV (02:13)
[2023-09-18] MEDS: sodium chloride 0.9% 1,000 ML 125 ML IV (04:48)
[2023-09-18] MEDS: heparin drip 25,000 UNIT/500 ML PREMIX 39.6599999999999966 UNIT IV (04:51)
[2023-09-18 06:00] LABS: Basophils # 0.2 10^3/uL (0.0-0.1); Basophils % 0.5 %; Hematocrit 28.4 % (37-53); Lymphocytes # 1.1 10^3/uL (0.8-4.8); Lymphocytes % 2.7 %; Mean Corpuscular HGB Conc 34.2 g/dL (30-55); Mean Corpuscular Hemoglobin 29.2 pg (27-33); Mean Corpuscular Volume 85.5 fl (82-101); Mean Platelet Volume 12.5 fL (7.4-10.4); Monocytes # 1.7 10^3/uL (0.2-0.9); Monocytes % 4.3 %; Neutrophils # 37.23 10^3/uL (1.8-7.7); Neutrophils % 91.6 %; Nucleated Red Blood Cells # 0.1 /100WBC; Nucleated Red Blood Cells % 0.3 %; Platelet Count 325 10^3/cmm (157-399); Red Blood Count 3.32 10^6/uL (3.85-5.65); Red Cell Distribution Width 14.4 % (12.1-15.1)
[2023-09-18 06:17] LABS: White Blood Count 40.65 10^3/uL (3.29-11.43)
[2023-09-18 06:18] LABS: C Reactive Protein 286.4 mg/L (0.0-4.9); Magnesium 2.4 mg/dL (1.7-2.3); Phosphorus 6.1 mg/dL (2.5-4.5)
[2023-09-18 06:23] LABS: Lactate (Lactic Acid level) 1.3 mmol/L (0.5-2.2); Partial Thromboplastin Time 122.5 SECONDS (23.9-36.7)
[2023-09-18 06:28] LABS: Procalcitonin 5.96 ng/mL (0-0.5)
[2023-09-18 06:41] LABS: Anion Gap 23.2 (5-19); Calcium 8.8 mg/dL (8.5-10.5); Carbon Dioxide 21 mmol/L (22-29); Chloride 89 mmol/L (98-107); Glomerular Filtration Rate 7.7 mL/min (90-130); Glucose 72 mg/dL (65-115); Osmolality Calculated 293 mOsm/kg (285-295); Potassium 5.2 mmol/L (3.5-5.1); Sodium 128 mmol/L (136-145)
[2023-09-18 06:45] LABS: Blood Urea Nitrogen 92 mg/dL (8-23); Creatinine Clr Calc Pharmacy 14.3704
[2023-09-18] MEDS: pantoprazole 40 mg SDV IVP (08:09)
[2023-09-18] MEDS: piperacillin-tazobactam 3.375 GM in sodium chloride 0.9% (plus) 50 ML IV (08:10)
[2023-09-18] MEDS: norepinephrine 4 MG/250 ML BAG 22.5 MG IV (11:26)
--- NOTE | 2023-09-18 11:38 | PC.NURSE ---
called for room to transfer to comfort care after long discussion with all family .. all agree to comfort measures,
--- NOTE | 2023-09-18 12:24 | PC.NURSE ---
report called and transfered to room 269 on comfort care
[2023-09-18] MEDS: morphine 4 mg/mL SDV 1 mL IVP ×3 (12:30→16:46)
--- NOTE | 2023-09-18 13:40 | P.PN_ITS ---
Subjective 2 Subjective: - Patient was examined multiple times in the morning, and throughout the afternoon with a family meeting early in the afternoon ? Early in the morning he was examined, currently on 8 of Levophed, blood pressures remain soft between 60-65, he is off vasopressin, remains on 50% FiO2, at times he tries to remove the BiPAP mask, he is alert to person, to place, not to time he can follow commands such as squeezing my fingers wiggle his toes, he is able to recognize his mother at bedside, this morning and he has evidence of respiratory distress intercostal retraction suprasternal retractions nasal flaring tachypnea ? Overnight remained agitated and tried to remove his BiPAP mask ? Patient's family at bedside, spoke to him about his respiratory failure, aspiration ammonia aspiration pneumonitis, now with his concerns for acute on chronic mesenteric ischemia, cholecystitis, encephalopathy, respiratory failure septic shock, family is still discussing, waiting on further family members to arrive ? Reexamined in the morning, with nursing staff at bedside ROSY, I was able to speak to patient, when I asked Jose E this morning if he wanted the BiPAP mask on he tells me now he wants it removed, when asked Jose E what he wants us to do he tells me he that he has done, he wants to go home, when I asked him if he wants to have dialysis he says no, I clarified this with him multiple times that without dialysis he would likely succumb and , he again said no multiple times with nursing staff at bedside, I asked Jose E if we should continue everything were doing for him he tells me now, he wants everything to be stopped he wants to go home, I told him if he went home he would likely , he Tells me he has done, he is ready to go ? I clarified with him that is he ready to stop everything and be comfortable and for us to let him comfortably I was not able to get any answers from him, ? I clarified many of his statements multiple times, it was quite explicit that he did not want dialysis anymore that he wanted everything to be stopped he want the BiPAP off, but when talking to him about his goals of care, about just being comfortable and allow him to comfortably, he did not really provide a clear answer ? I had a family meeting with patient's brothers and sisters, patient's mother, patient's ex-, ? I discussed with him that his respiratory failure persists he is on 50% FiO2, BiPAP dependent, he wants to constantly remove it, discussed with the family his wishes, for everything to be stopped, but but no clear answer if he wanted to be on comfort care, discussed aspiration pneumonia aspiration pneumonitis, his septic shock is improving, he is off vasopressin but he still on 8 of Levophed we discussed his refusal to do dialysis today, he needs to have dialysis due to his electrolyte abnormalities and his fluid overload, had a detailed discussion about his deconditioned state, he has been in bed for most of the last 3 weeks, has not thrive, has had poor nutrition, I had a detailed discussion about his overall goals of care, if we were to continue medical interventions he would need to have aggressive physical therapy, he would need to be placed in a facility send like [facility] that could give him BiPAP during the day as needed for his respiratory failure scheduled during the night he could get extra rounds of dialysis, have close monitoring by radio assembler, he would have to have extensive monitoring to decrease risk of bedsores, extensive physical therapy, and then ultimately in his mind, as if he is given up, he has voiced to me and to nursing staff that multiple times that he has done, at times he has refused medications, refused medical interventions, in order to pursue long-term placement, long-term care, he is going to require a lot of support, a lot of encouragement potentially antidepressant medications, to help him with this fight, but he is derrell have to be willing to to fight, but currently he is appearing to given up, he is voiced that he wants everything to be stopped and I would abide by his wishes, but I also want family to come to a decision about his long-term care in terms of the gallbladder and cholecystitis as an etiology behind his acute worsening, if he were to get clinically improved, off pressors and his respiratory status and get gets better, we could certainly entertain the thought of a gallbladder drain, and then eventually consider gallbladder surgery all these procedures would carry significant morbidity mortality, given his risk factors, his respiratory status, his blood pressures, however if he was willing, and showed no signs of improvement, we can certainly go down that route if that is what family chooses, in terms of his acute on chronic mesenteric ischemia, he is on anticoagulant therapy, his abdomen remains distended, has poor bowel sounds, will have to continue to monitor him on blood thinners, monitor his lactic acids which are within normal limits for now, however with his mesenteric ischemia acute on chronic, he has a high risk of gut, a portion of his septic shock could be from ongoing ischemia to the gut, which will be associate with significant morbidity and mortality, ideally he should have surgery, but given his septic shock, his renal failure his multiple core morbidities her respiratory status, he would likely on the table, and have confirmed this with the surgeon, he has a history of vascular disease, specifically in his GI tract, this certainly could be intervened on, if we had IR, certainly we could consider transfer however currently he is at high risk of transfer, but if he were to stabilize at some point it could be intervened including surgery, but currently he is high risk for any interventions, in terms of his cardiac status his troponins are elevated, certainly there is the possibility of cardiac stress with his respiratory failure, his sepsis and septic shock, at some point the cardiac status has to also be evaluated for all these procedures and the surgeries that he potentially might require in the future. We also discussed his persistent leukocytosis, that CML and acute neutrophilic leukemia is a high likelihood of waiting on the further follow-up results, such as JAK2 testing, but certainly he could be in the blast phase, or decelerated phase also pointing to his deconditioning, persistent leukocytosis nonetheless Jose E has an uphill sykes with his complex medical case the question is does he want to keep fighting does he understand the complexity of the situation, currently he is made it clear to be the nursing staff that he wants everything to be stopped he does not want to have dialysis anymore he wants a BiPAP mask off but does he under stands that that we will end his life at times he is said he has done, but does he understand what that means, it is not exactly clear, when I explicitly asked if he is ready to , I have not had a clear answer for him certainly he remains encephalopathic secondary to hypoxia, secondary to septic encephalopathy secondary to uremia so I do not feel he can make an informed decision ? Thus based upon the following information, I am going to leave it up to the family to make his decision, patient's ex- patient's brothers and sisters and patient's mother were there and ultimately they will make the decision ? I discussed continue medical interventions, versus intervention such as comfort care easing his pain easing his suffering allow him to pass away comfortably on hospice care ? I discussed the risks and benefits of all options, patient's family voiced understanding, all questions answered ? After discussing the risk and benefits of all options, patient's family voiced understanding all questions answered, patient's family wanted to proceed with comfort care ? More specifically I got the answer from patient's mother, patient's brothers patient's sisters who are the patient's next of kin that they would like to proceed with comfort care As above everything did not want Jose E to suffer they do want him to suffocate, they want us to ease his pain easing his suffering and they do not want him to suffer ? We discussed the risk and benefits of comfort care the goals of comfort care to ease his pain easing his suffering and allow him him to pass with comfortably but not hastening his , after discussing the risk and benefits of comfort care, they voiced understanding, all questions answered, agreed to proceed with comfort care ? Patient will be transition to comfort care Vitals/I&O/Wt Last Vital Signs Temp 97.0 F L 09/18/23 06:00 Pulse 92 09/18/23 11:25 Resp 27 H 09/18/23 10:00 BP 121/50 09/18/23 10:00 Pulse Ox 93 09/18/23 11:25 O2 Del Method BiPAP 09/18/23 08:55 O2 Flow Rate 40 09/15/23 21:00 FiO2 50 09/18/23 11:25 09/17/23 09/18/23 09/18/23 22:59 06:59 14:59 Intake Total 1804.541 / 2528.276 1524.477 / 4052.753 264.25 / 264.25 Output Total 850 / 850 Balance 1804.541 / 2528.276 674.477 / 3202.753 264.25 / 264.25 Weight last 48 hrs Weight 145.717 kg Weight 141.634 kg Physical Exam 2 Const: COMMON NORMALS: no acute distress ORIENTATION/CONSCIOUSNESS: Yes awake, Yes oriented to person, Yes oriented to place and Yes confused; not oriented to time Eye: COMMON NORMALS: Equal, round and reactive pupils present PUPIL: Yes Equal, round and reactive pupils present Resp: OTHER: Crackles and wheezing in all lung kemp intercostal retractions was retractions, mild to moderate respiratory distress, tachypnea Cardio: COMMON NORMALS: regular rate, S1 normal heart sound present and S2 normal heart sound present RATE: regular rate RHYTHM: abnormal rhythm H EART SOUNDS: S1 normal heart sound present and S2 normal heart sound present GI: OTHER: Abdomen is soft, distended, diminished bowel sounds in all 4 quadrants, no guarding, no rebound, rigidity but does have diffuse abdominal tenderness Extremity: COMMON NORMALS: no pedal edema Neuro: SENSORIUM/ORIENTATION: Yes oriented to person, Yes oriented to place and No oriented to time Data 09/18/23 05:24 09/18/23 05:24 A&P Assessment and plan (1) Deep tissue injury: (2) Hypercapnic respiratory failure: Qualifiers: Chronicity: acute on chronic Qualified Code(s): J96.22 - Acute and chronic respiratory failure with hypercapnia (3) ESRD (end stage renal disease): (4) Hypertension: Qualifiers: Hypertension type: unspecified Qualified Code(s): I10 - Essential (primary) hypertension (5) Coronary artery disease: Qualifiers: Associated angina: without angina Coronary Disease-Associated Artery/Lesion type: unspecified vessel or lesion type [place] vs. transplanted heart: [place] heart Qualified Code(s): I25.10 - Atherosclerotic heart disease of [place] coronary artery without angina pectoris (6) Atrial fibrillation: Qualifiers: Atrial fibrillation type: unspecified Qualified Code(s): I48.91 - Unspecified atrial fibrillation (7) NATHALY (obstructive sleep apnea): (8) Fall: Qualifiers: Encounter type: subsequent encounter Qualified Code(s): W19.XXXD - Unspecified fall, subsequent encounter (9) Physical deconditioning: (10) Elevated WBC count: Qualifiers: Leukocytosis type: unspecified Qualified Code(s): D72.829 - Elevated white blood cell count, unspecified (11) Acute encephalopathy: (12) Septic shock: (13) Uremic encephalopathy: (14) Dysautonomia: (15) Post ICU syndrome: (16) Intensive care (ICU) myopathy: (17) Protein calorie malnutrition: (18) Leukemia, acute: (19) Acute cholecystitis: (20) Acute mesenteric ischemia: (21) Need for comfort care: Plan Patient proceeding with comfort care, for acute hypoxic respiratory failure, septic shock, septic encephalopathy, uremic encephalopathy, acute cholecystitis, acute on chronic mesenteric ischemia Acute hypoxic respiratory failure -Secondary to aspiration pneumonia, aspiration pneumonitis ? Significant aspiration event yesterday feculent material from mouth ? Currently on 50% BiPAP, with evidence of respiratory distress ? Plan ? Patient is DNR/DNI ? Continue BiPAP therapy ?patient has a risk of aspiration on BiPAP, however no other option given his severe respiratory failure, ? Status post hydrocortisone ? Continue vancomycin, Zosyn, ? Monitor respiratory status closely, ?if patient has acute respiratory failure worsens or condition discharged to decompensate, will discuss with family and proceed with full comfort care, for now family wants to continue medical invention wait until family members from out of state arrive and see patient before proceeding with full comfort care Acute cholecystitis CT scan 4. Distended gallbladder containing sludge. There is pericholecystic edema adjacent to the fundus. Acute cholecystitis is a possibility. Consider further evaluation with ultrasound. MPRESSION: 1. Mildly hydropic gallbladder with sludge. No stones. No pericholecystic fluid. There is mild nodular gallbladder wall thickening. Early changes of the gangrenous cholecystitis should be considered. Other etiologies of gallbladder wall thickening are congestive heart failure, cirrhosis, ascites and hepatitis. 2. No common bile duct dilatation. 3. Mild atrophy RIGHT kidney. 4. No flow is identified in the SMA. Heavily calcified SMA was noted on the CT recently performed. Cannot exclude GI tract ischemia. 5. Hepatic steatosis. 6. Collapsed IVC. ? General surgery consulted ? IV antibiotics ? N.p.o., ? If patient's condition does improve can consider gallbladder drain Acute on chronic mesenteric ischemia 1. Loculated ascites and mesenteric/omental edema in the right abdomen, new since 09/09/2023. This finding is nonspecific and may be related to inflammation of the gallbladder or bowel, bowel ischemia, omental infarction, or an otherwise in occult inflammatory process. Given rapid progression of this finding, lymphangitic carcinomatosis is less likely. 2. Mild diffuse intermittent small bowel dilation suggests ileus. No pneumatosis or mural thickening to confirm ischemia or inflammation. There is contrast in the terminal ileum, excluding high-grade small bowel obstruction. 3. Calcific plaque with possible high-grade stenosis of the celiac and superior mesenteric artery origins. Consider follow-up CTA for better assessment of these vessels. 4. Distended gallbladder containing sludge. There is pericholecystic edema adjacent to the fundus. Acute cholecystitis is a possibility. Consider further evaluation with ultrasound. 5. Ill-defined coarse reticular opacity in the lung bases bilaterally, decreased since 09/09/2023, likely some combination of atelectasis and infection. ? With patient's complaints of diffuse abdominal pain, concerns for acute on chronic mesenteric ischemia given elevated lactic acid, diffuse abdominal tenderness, She does have a history of GI bleeds ? Will start on heparin drip Serial abdominal exams Septic shock -Multifactorial, from aspiration pneumonia, aspiration pneumonitis acute cholecystitis, acute on chronic mesenteric ischemia ? On Levophed at 20 ? On vasopressin 0.2, ? Started dopamine drip, ?fluid boluses ? Albumin therapy End-stage renal disease, on dialysis cannot dialyze today given severe septic shock can consider CRRT Acute encephalopathy ? Likely multifactorial currently secondary to hypoxia, septic shock, prolonged hospitalization, respiratory failure ? Chronic secondary to Parkinson's disease, withdrawal from Lyrica, Sinemet, Parkinsonian disorder dysautonomia ? Midodrine, pyridostigmine on hold given mesenteric ischemia as above Atrial fibrillation with rapid ventricular response Is on amiodarone drip Uremic encephalopathy Persistent leukocytosis -currently elevation likely secondary to as above, -chronic leukocytosis has had extensive workup, blood cultures negative, CSF cultures negative, fungal studies negative, viral studies negative ? 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 Order JAK2, leukemia panel, next ?currently not stable enough intervention - Patient was examined multiple times in the morning, and throughout the afternoon with a family meeting early in the afternoon ? Early in the morning he was examined, currently on 8 of Levophed, blood pressures remain soft between 60-65, he is off vasopressin, remains on 50% FiO2, at times he tries to remove the BiPAP mask, he is alert to person, to place, not to time he can follow commands such as squeezing my fingers wiggle his toes, he is able to recognize his mother at bedside, this morning and he has evidence of respiratory distress intercostal retraction suprasternal retractions nasal flaring tachypnea ? Overnight remained agitated and tried to remove his BiPAP mask ? Patient's family at bedside, spoke to him about his respiratory failure, aspiration ammonia aspiration pneumonitis, now with his concerns for acute on chronic mesenteric ischemia, cholecystitis, encephalopathy, respiratory failure septic shock, family is still discussing, waiting on further family members to arrive ? Reexamined in the morning, with nursing staff at bedside ROSY, I was able to speak to patient, when I asked Jose E this morning if he wanted the BiPAP mask on he tells me now he wants it removed, when asked Jose E what he wants us to do he tells me he that he has done, he wants to go home, when I asked him if he wants to have dialysis he says no, I clarified this with him multiple times that without dialysis he would likely succumb and , he again said no multiple times with nursing staff at bedside, I asked Jose E if we should continue everything were doing for him he tells me now, he wants everything to be stopped he wants to go home, I told him if he went home he would likely , he Tells me he has done, he is ready to go ? I clarified with him that is he ready to stop everything and be comfortable and for us to let him comfortably I was not able to get any answers from him, ? I clarified many of his statements multiple times, it was quite explicit that he did not want dialysis anymore that he wanted everything to be stopped he want the BiPAP off, but when talking to him about his goals of care, about just being comfortable and allow him to comfortably, he did not really provide a clear answer ? I had a family meeting with patient's brothers and sisters, patient's mother, patient's ex-, ? I discussed with him that his respiratory failure persists he is on 50% FiO2, BiPAP dependent, he wants to constantly remove it, discussed with the family his wishes, for everything to be stopped, but but no clear answer if he wanted to be on comfort care, discussed aspiration pneumonia aspiration pneumonitis, his septic shock is improving, he is off vasopressin but he still on 8 of Levophed we discussed his refusal to do dialysis today, he needs to have dialysis due to his electrolyte abnormalities and his fluid overload, had a detailed discussion about his deconditioned state, he has been in bed for most of the last 3 weeks, has not thrive, has had poor nutrition, I had a detailed discussion about his overall goals of care, if we were to continue medical interventions he would need to have aggressive physical therapy, he would need to be placed in a facility send like [facility] that could give him BiPAP during the day as needed for his respiratory failure scheduled during the night he could get extra rounds of dialysis, have close monitoring by radio assembler, he would have to have extensive monitoring to decrease risk of bedsores, extensive physical therapy, and then ultimately in his mind, as if he is given up, he has voiced to me and to nursing staff that multiple times that he has done, at times he has refused medications, refused medical interventions, in order to pursue long-term placement, long-term care, he is going to require a lot of support, a lot of encouragement potentially antidepressant medications, to help him with this fight, but he is derrell have to be willing to to fight, but currently he is appearing to given up, he is voiced that he wants everything to be stopped and I would abide by his wishes, but I also want family to come to a decision about his long-term care in terms of the gallbladder and cholecystitis as an etiology behind his acute worsening, if he were to get clinically improved, off pressors and his respiratory status and get gets better, we could certainly entertain the thought of a gallbladder drain, and then eventually consider gallbladder surgery all these procedures would carry significant morbidity mortality, given his risk factors, his respiratory status, his blood pressures, however if he was willing, and showed no signs of improvement, we can certainly go down that route if that is what family chooses, in terms of his acute on chronic mesenteric ischemia, he is on anticoagulant therapy, his abdomen remains distended, has poor bowel sounds, will have to continue to monitor him on blood thinners, monitor his lactic acids which are within normal limits for now, however with his mesenteric ischemia acute on chronic, he has a high risk of gut, a portion of his septic shock could be from ongoing ischemia to the gut, which will be associate with significant morbidity and mortality, ideally he should have surgery, but given his septic shock, his renal failure his multiple core morbidities her respiratory status, he would likely on the table, and have confirmed this with the surgeon, he has a history of vascular disease, specifically in his GI tract, this certainly could be intervened on, if we had IR, certainly we could consider transfer however currently he is at high risk of transfer, but if he were to stabilize at some point it could be intervened including surgery, but currently he is high risk for any interventions, in terms of his cardiac status his troponins are elevated, certainly there is the possibility of cardiac stress with his respiratory failure, his sepsis and septic shock, at some point the cardiac status has to also be evaluated for all these procedures and the surgeries that he potentially might require in the future. We also discussed his persistent leukocytosis, that CML and acute neutrophilic leukemia is a high likelihood of waiting on the further follow-up results, such as JAK2 testing, but certainly he could be in the blast phase, or decelerated phase also pointing to his deconditioning, persistent leukocytosis nonetheless Jose E has an uphill sykes with his complex medical case the question is does he want to keep fighting does he understand the complexity of the situation, currently he is made it clear to be the nursing staff that he wants everything to be stopped he does not want to have dialysis anymore he wants a BiPAP mask off but does he under stands that that we will end his life at times he is said he has done, but does he understand what that means, it is not exactly clear, when I explicitly asked if he is ready to , I have not had a clear answer for him certainly he remains encephalopathic secondary to hypoxia, secondary to septic encephalopathy secondary to uremia so I do not feel he can make an informed decision ? Thus based upon the following information, I am going to leave it up to the family to make his decision, patient's ex- patient's brothers and sisters and patient's mother were there and ultimately they will make the decision ? I discussed continue medical interventions, versus intervention such as comfort care easing his pain easing his suffering allow him to pass away comfortably on hospice care ? I discussed the risks and benefits of all options, patient's family voiced understanding, all questions answered ? After discussing the risk and benefits of all options, patient's family voiced understanding all questions answered, patient's family wanted to proceed with comfort care ? More specifically I got the answer from patient's mother, patient's brothers patient's sisters who are the patient's next of kin that they would like to proceed with comfort care As above everything did not want Jose E to suffer they do want him to suffocate, they want us to ease his pain easing his suffering and they do not want him to suffer ? We discussed the risk and benefits of comfort care the goals of comfort care to ease his pain easing his suffering and allow him him to pass with comfortably but not hastening his , after discussing the risk and benefits of comfort care, they voiced understanding, all questions answered, agreed to proceed with comfort care ? Patient will be transition to comfort care Attestations 2 Medical Necessity Statement*: Patient requires hospitalization, proceeding with hospice comfort care, for acute encephalopathy septic encephalopathy respiratory failure hypoxic respiratory failure septic shock, end-stage renal disease on dialysis, acute mesenteric ischemia, aspiration pneumonia aspiration pneumonitis, acute cholecystitis Coding Level of Care Code Critical Care >/= 30 minutes Critical care time (in minutes): 55 The high probability of a clinically significant, sudden or life threatening deterioration, as referenced in this documentation, required my full and direct attention, intervention and personal management. The critical care time shown is in addition to time spent performing any reported separately billable procedures and includes the following: [x] Data and vital sign review and interpretation [x ] Patient assessment, examination and intervention [x] Medication orders and management [x] Patient/Family updates as able [x] Care Coordination and Documentation. Diagnoses Deep tissue injury T14.8XXA Acute on chronic respiratory failure with hypercapnia J96.22 Chronicity: acute on chronic ESRD (end stage renal disease) N18.6 Hypertension, unspecified type I10 Hypertension type: unspecified Coronary artery disease involving [place] heart without angina pectoris, unspecified vessel or lesion type I25.10 Associated angina: without angina Coronary Disease-Associated Artery/Lesion type: unspecified vessel or lesion type [place] vs. 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
[2023-09-18] MEDS: LORazepam 2 mg/mL INJ 10 mL MDV IVP ×2 (16:42→17:48)
[2023-09-18] MEDS: atropine 1% op soln 2 mL Btl 3 DROP SUBLINGUAL (17:53)
--- NOTE | 2023-09-18 18:28 | PC.NURSE ---
Pt noted to be absent of heart beat, respirations and pupils were non-reactive at 1824 on 09/18/23. ANGUS Chau confirmed.
--- NOTE | 2023-09-18 18:31 | PC.NURSE ---
LMOM on Mandie Quiles cell# to call back at [phone].
--- NOTE | 2023-09-18 18:52 | PC.NURSE ---
[facility] when MTS releases. Pt at 1824 on 09/18/2023.
--- NOTE | 2023-09-19 08:55 | PM.DDS ---
Discharge Providers DDS Date of Admission: 08/25/23 14:34 Date Summary Completed: 09/26/23 Attending Provider at Admission: Moisés Landon MD Attending Provider at Discharge: Moisés Landon MD Primary Care Provider: Lovely Ivey MD DS Diagnoses Hospital Diagnoses (1) Deep tissue injury: (2) Hypercapnic respiratory failure: Qualifiers: Chronicity: acute on chronic Qualified Code(s): J96.22 - Acute and chronic respiratory failure with hypercapnia (3) ESRD (end stage renal disease): (4) Hypertension: Qualifiers: Hypertension type: unspecified Qualified Code(s): I10 - Essential (primary) hypertension (5) Coronary artery disease: Qualifiers: Associated angina: without angina Coronary Disease-Associated Artery/Lesion type: unspecified vessel or lesion type [place] vs. transplanted heart: [place] heart Qualified Code(s): I25.10 - Atherosclerotic heart disease of [place] coronary artery without angina pectoris (6) Atrial fibrillation: Qualifiers: Atrial fibrillation type: unspecified Qualified Code(s): I48.91 - Unspecified atrial fibrillation (7) NATHALY (obstructive sleep apnea): Permanent Problem Comments: Nightly CPAP (8) Fall: Qualifiers: Encounter type: subsequent encounter Qualified Code(s): W19.XXXD - Unspecified fall, subsequent encounter (9) Physical deconditioning: (10) Elevated WBC count: Qualifiers: Leukocytosis type: unspecified Qualified Code(s): D72.829 - Elevated white blood cell count, unspecified (11) Acute encephalopathy: (12) Septic shock: (13) Uremic encephalopathy: (14) Dysautonomia: (15) Post ICU syndrome: (16) Intensive care (ICU) myopathy: (17) Protein calorie malnutrition: (18) Leukemia, acute: (19) Acute cholecystitis: (20) Acute mesenteric ischemia: (21) Need for comfort care: Reason for Visit Reason for Visit Fall Summary Summary Summary: Artie Quiles is a 68 year old male with a past medical history of end-stage renal disease on dialysis, atrial fibrillation not on anticoagulation due to history of GI bleed, Obstructive sleep apnea on CPAP, CAD, hypertension, hyperlipidemia, COPD, morbid obesity, who presents [facility] due to acute confusion. Currently patient is alert oriented x 3, follows all commands, he tells me and his tells me that for the last 48 hours he has had increased episodes of confusion, tells me that he has been talking to his dad father, that he has been trying to fix a car while he was sitting in a chair, he has been talking out of his head, increasingly confused, he has been feeling more tremulousness, increased tremor, he has been dropping things frequently with both hands for the last 2 days, he has had increased falls for the last 2 days, denies any fevers, no chills, no neck stiffness, he did have a fall this morning, that prompted them to come to the emergency room as he could not get off the ground, he missed his morning dialysis, currently does not complain of any neck pain, does report lower back pain, has a history of back pain, can follow all commands, does report loss of taste, does report over 30 pound weight loss in the last few months, does report decreased appetite, fatigue, malaise Patient had a prolonged and complicated hospital admission, please look at my last progress note for further detail Patient was admitted to [facility] for acute encephalopathy, with persistent leukocytosis, pneumonia, acute hypoxic hypercarbic respiratory failure, fall, he was admitted, placed on broad-spectrum antibiotic therapy placed on BiPAP therapy, concerns for polypharmacy he is doses of Lyrica, levodopa carbidopa, permitting were adjusted Patient subsequently developed worsening mental status, with hypotension, with hypercapnia. Concerns for hypercapnic respiratory failure secondary COPD, CHF, CAD obstructive sleep apnea obesity hypoventilation syndrome, with developing hypotension during dialysis, likely suspected adrenal insufficiency, Parkinson induced dysautomania, with parkinsonian with worsening resting tremors. Requiring ICU admission, goals of care discussion with patient's family, patient was made DNR/DNI as he cannot make decisions for himself. Patient required prolonged ICU admission, requiring dialysis, episodes of hypotension during dialysis requiring pressors, persistent encephalopathy, poor appetite, deconditioning, with respiratory failure requiring BiPAP. For patient's acute hypoxic respiratory failure, secondary to fluid overload, patient during his hospitalization subsequently developed significant aspiration event, resulting in aspiration pneumonia, aspiration pneumonitis with acute hypoxic respiratory failure requiring persistent BiPAP therapy, with additional broad-spectrum antibiotic therapy, work requiring pressors, with encephalopathy, with patient refusing BiPAP and try to rip off his mask, and refusing dialysis, repeating to nurses and to me that he was done. There was also concerns for acute cholecystitis, with acute on chronic mesenteric ischemia, seen on imaging, with his aspiration event medically managed with broad-spectrum antibiotic therapy, heparin drip, pressor therapy, general surgery consultation, who recommended medical management given his acutely ill state due to high risk of morbidity and mentality with surgical intervention Subsequently patient's hospitalization was complicated with septic shock multifactorial from underlying parkinsonian dysautomania, dialysis, with now aspiration pneumonia, aspiration pneumonitis, cholecystitis, acute on chronic mesenteric ischemia, requiring up to 2 pressors, With persistent acute encephalopathy, patient had an extensive workup for encephalopathy including normal MRI of the brain, thought to be persistent due to withdrawals from Lyrica and parkinsonian medications, neurology evaluated patient, placed back on Lyrica, placed back on his Sinemet, EEG showed no evidence of seizure activity, with persistent encephalopathy despite all this, despite normal blood cultures, uremia improving with dialysis, normal repeat head CT's Hospitalization was complicated with A-fib with RVR, managed on amiodarone drip Patient's hospitalization was complicated with persistent leukocytosis managed on broad-spectrum antibiotic therapy, managed on antivirals, managed on antifungals, requiring extensive workup, including normal CSF cultures, normal fungal studies, HSV studies, normal blood cultures, extensive imaging which showed evidence of pneumonia but no other acute findings, normal tagged white blood cell scan, concerns for underlying CML or chronic neutrophilic leukemia as a cause of his chronic persistent neutrophilic leukocytosis during his hospitalization, during the end of his hospitalization elevated white count a component of this would be from his significant aspiration pneumonia, aspiration pneumonitis, acute cholecystitis, acute chronic mesenteric ischemia. Due to patient's acute encephalopathy, septic shock, requiring pressors, A-fib with RVR, respiratory failure requiring BiPAP, he being DNR/DNI, goals of care discussion with patient's family as he could not make informed decision although at times, he would rip off his BiPAP mask, will tell the nurses and me that he has done, and he was refusing dialysis. After extensive goals of care discussion with patient's family, they voiced understanding, all questions answered, options discussed were continued medical intervention versus comfort care/hospice. After discussing the risk and benefits of all options, patient's brothers and sisters, patient's ex-, patient's mother voiced understanding, all questions answered, patient's family proceeded to comfort care. After discussing the risk and benefits of comfort care, they voiced understanding, all question answered, great to proceed. Patient was made comfort care, time of 1824 at 09/18/2023 Additional Data Confirmation of as documented by pronouncing clinician: no pulse, no respirations and no heart sounds Family: at bedside Additional persons at bedside: nursing staff Attending/PCP notified?: I am attending Was code activated?: No Autopsy requested?: No Advance directives?: No Discharge Plan Discharge Patient Disposition: Condition: Stable DS Attestations Time Spent in /Discharge Care*: greater than 30 min Quality - AMI: AMI present?: No Quality - Stroke: CVA present?: No Symptom Onset Unknown: No Quality - VTE: VTE present?: No Deep Vein Thrombosis/Pulmonary Embolism Present on Admission: No Coding Level of Care Code 67006 Total time (in minutes) for Discharge: 45 Diagnoses Deep tissue injury T14.8XXA Acute on chronic respiratory failure with hypercapnia J96.22 Chronicity: acute on chronic ESRD (end stage renal disease) N18.6 Hypertension, unspecified type I10 Hypertension type: unspecified Coronary artery disease involving [place] heart without angina pectoris, unspecified vessel or lesion type I25.10 Associated angina: without angina Coronary Disease-Associated Artery/Lesion type: unspecified vessel or lesion type [place] vs. 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
[2023-09-20 07:43] LABS: Leukemia Profile (BBPL) See Report
[2023-09-22 21:05] LABS: CALR Exon 9 Mutation NOT DETECTED (NOT DETECTED); CSF3R Exon 14/17 Mutation NOT DETECTED (NOT DETECTED); JAK2 Exon 12 Mutation NOT DETECTED (NOT DETECTED); JAK2 V617 Block Specimen ID NG; JAK2 V617 Clinical Indication NG; JAK2 V617 Mutation NOT DETECTED (NOT DETECTED); JAK2 V617 Specimen Source NG; MPL Exon 12 Mutation NOT DETECTED (NOT DETECTED)
[2023-09-25 18:30] LABS: Acetylcholine Receptor Binding <0.30 nmol/L
== END 2023-09-18 21:52 | disposition expired | DRG 871 ==
LOC: ER 12:56 → MEDSURG 14:35 → ICU 09-01 01:22 → MEDSURG 09-18 12:16
PROVIDERS: Hospitalist; Internal Medicine; Internal Medicine Pulmonary Disease; Student in an Organized Health Care Education/Training Program; Admitting Provider Family Medicine; Emergency Provider Emergency Medicine; PCP Family Medicine; Visit Provider Family Medicine
DX: A41.9 Sepsis, unspecified organism (principal); G93.41 Metabolic encephalopathy; R65.21 Severe sepsis with septic shock; N18.6 End stage renal disease; K55.039 Acute (reversible) ischemia of large intestine, extent unspecified; J69.0 Pneumonitis due to inhalation of food and vomit; J18.9 Pneumonia, unspecified organism; J96.22 Acute and chronic respiratory failure with hypercapnia; J96.21 Acute and chronic respiratory failure with hypoxia; I13.2 Hypertensive heart and chronic kidney disease with heart failure and with stage 5 chronic kidney disease, or end stage renal disease; K81.0 Acute cholecystitis; E46 Unspecified protein-calorie malnutrition; G72.81 Critical illness myopathy; E27.40 Unspecified adrenocortical insufficiency; J44.1 Chronic obstructive pulmonary disease with (acute) exacerbation; J44.0 Chronic obstructive pulmonary disease with (acute) lower respiratory infection; E66.2 Morbid (severe) obesity with alveolar hypoventilation; Z68.41 Body mass index [BMI] 40.0-44.9, adult; I13.11 Hypertensive heart and chronic kidney disease without heart failure, with stage 5 chronic kidney disease, or end stage renal disease; I50.9 Heart failure, unspecified; Z99.2 Dependence on renal dialysis; Z11.52 Encounter for screening for COVID-19; Z66 Do not resuscitate; E87.70 Fluid overload, unspecified; Z51.5 Encounter for palliative care; D72.829 Elevated white blood cell count, unspecified; L89.306 Pressure-induced deep tissue damage of unspecified buttock; G20.C Parkinsonism, unspecified; E87.5 Hyperkalemia; K57.30 Diverticulosis of large intestine without perforation or abscess without bleeding; Z99.81 Dependence on supplemental oxygen; I48.91 Unspecified atrial fibrillation; I25.10 Atherosclerotic heart disease of native coronary artery without angina pectoris; Z95.5 Presence of coronary angioplasty implant and graft; E78.5 Hyperlipidemia, unspecified; R29.6 Repeated falls; Z79.82 Long term (current) use of aspirin; I25.2 Old myocardial infarction; H54.8 Legal blindness, as defined in USA; D63.1 Anemia in chronic kidney disease; E11.22 Type 2 diabetes mellitus with diabetic chronic kidney disease; Z87.440 Personal history of urinary (tract) infections; F17.210 Nicotine dependence, cigarettes, uncomplicated; F40.240 Claustrophobia; I95.3 Hypotension of hemodialysis; K42.9 Umbilical hernia without obstruction or gangrene
CPT/HCPCS: 36415; 36416; 36573; 36592; 36600; 62328; 70450; 70551; 71045; 71250; 72125; 72128; 72131; 74018; 74176; 76536; 76705; 78802; 80048; 80051; 80053; 80061; 80074; 80076; 80202; 80503; 81270; 81279; 81339; 81479; 82140; 82330; 82533; 82550; 82607; 82728; 82746; 82784; 82803; 82805; 82945; 82962; 82977; 83010; 83036; 83519; 83605; 83615; 83690; 83735; 83880; 84100; 84145; 84157; 84315; 84439; 84443; 84484; 85007; 85025; 85027; 85049; 85362; 85378; 85384; 85610; 85651; 85730; 86140; 86376; 86403; 86592; 86612; 86617; 86618; 86653; 86666; 86706; 86757; 87040; 87070; 87075; 87205; 87305; 87327; 87340; 87385; 87449; 87486; 87530; 87581; 87633; 87799; 87806; 88184; 88185; 88374; 89050; 90935; 92523; 92610; 93005; 93925; 93970; 94640; 94660; 94664; 95822; 96372; 96376; 97110; 97161; 97167; 97530; 97535; 99285; A4222; A9569; C1751; C8929; C9113; J0133; J0283; J0456; J0610; J0692; J0696; J1630; J1644; J1650; J1720; J1815; J1940; J1953; J2020; J2060; J2185; J2248; J2270; J2405; J2543; J2598; J2920; J3370; J3411; J3490; J7030; J7050; J7512; J7613; J7799; P9046; P9047; Q3014; Q4081; Q9956